=== PATIENT | male | born 1955 | race Caucasian/White ===

== ENCOUNTER 2016-12-03 18:52 | Emergency (ER) | payer OTHER ==
[~2016-12-03] VITALS: Ht 180.3 cm; Wt 137.6 kg
[~2016-12-03 18:52] MED LIST: CGN5X; CHOL100010 PO; CLON1TAB3 PO; CLOZ200T PO; CLZ100 PO; ECOTRIN TAB81 MG PO; LEVO25TA5 PO; LPT40 PO; METF-384 PO; MRLP17 PO; MULT-506 PO; NORCO PO; PARO1TAB27 PO; TOPI50TA16 PO
[2016-12-03 19:07] VITALS: Ht 180.3 cm; Wt 137.6 kg
--- NOTE | 2016-12-03 19:54 | EMERGENCY ROOM VISIT NOTE ---
History Report prepared by Debbi: Margarito Lim Under the Supervision of: Dr. Nery Walls M.D. First contact with patient: 19:17 Chief Complaint: ELBOW PAIN/INJURY Stated Complaint: SIGNS OF STROKE, L ELBOW WEAK History of Present Illness The patient is a 61 year old male who presents to the Emergency Room with complaints of constant left elbow pain and weakness occurring about an hour or so ago. The patient denies any speech difficulties, numbness in his arm, or acute weakness in his legs, though he states that he is having some weakness for a few months. The patient notes that he had an accident in 1988, and he hurt his left elbow, and he was unable to move his elbow for some time. The patient states that he uses chewing tobacco. Source of History: patient, family Onset: an hour or so ago Position: elbow (left) Quality: other (weakness) Timing: constant Associated Symptoms: No numbness Review of Systems See HPI for pertinent positives & negatives. A total of 10 systems reviewed and were otherwise negative. Past Medical & Surgical Medical Problems: (1) Hypertension Nos (2) MORBID OBESITY (3) PNEUMONIA, ORGANISM NOS (4) SCHIZOPHRENIA NOS-UNSPEC Family History Diabetes mellitus Heart disease Hypertension Social History Smoking Status: Never Smoker Alcohol Use: none Marital Status: single Housing Status: unknown Occupation Status: employed Current/Historical Medications Scheduled Atorvastatin (Atorvastatin Calcium), 40 MG PO DAILY Benztropine Mesylate (Benztropine Mesylate), 1 MG PO BID Cholecalciferol (Vitamin D3), 1 TAB PO DAILY Clonazepam (Klonopin), 1 MG PO BID Clozapine (Clozapine), 200 MG PO DAILY Clozapine (Clozapine), 2 TAB PO HS Docusate Sodium (Docusate Sodium), 2 CAP PO BID Levothyroxine Sodium (Levothyroxine Sodium), 25 MCG PO DAILY Metformin Hcl (Glucophage), 1,000 MG PO BID Multivitamin (Multivitamin), 1 TAB PO DAILY Paroxetine (Paroxetine HCl), 30 MG PO BID Polyethylene (Polyethylene Glycol 3350), 17 GM PO DAILY Tamsulosin Hcl (Flomax), 0.4 MG PO QAM Topiramate (Topamax), 50 MG PO BID Scheduled PRN Dextromethorphan-Guaifenesin (Tussin Dm), 5-10 ML PO Q4 PRN for Cough Hydrocodone/Acetaminophen 5MG/325MG ([place] 5MG/325MG), 1 TABLET PO Q4 PRN for Pain Ibuprofen (Advil), 200 MG PO Q4 PRN for Pain Pseudoephedrine-Guaifenesin (Mucinex D), 1 TAB PO BID PRN for CONGESTION Allergies Coded Allergies: Penicillins (Verified Allergy, 01/03/12) Physical Exam Vital Signs Date Time Temp Pulse Resp B/P (MAP) Pulse Ox O2 Delivery O2 Flow Rate FiO2 12/03/16 22:17 36.7 64 18 142/87 97 12/03/16 22:11 64 18 142/87 97 Room Air 12/03/16 22:01 142/87 12/03/16 21:52 64 14 12/03/16 21:32 64 18 133/77 97 Room Air 12/03/16 21:31 133/77 12/03/16 21:30 64 12/03/16 21:28 130/81 12/03/16 20:25 70 18 128/75 94 Room Air 12/03/16 19:07 36.7 82 18 116/72 94 Room Air Physical Exam Vital signs reviewed. General: Well-appearing male, in no significant distress. HEENT: Some horizontal nystagmus at baseline. Pupils are 3mm and reactive. No scleral icterus, PERRLA, neck supple. Atraumatic. Cardiovascular: Regular rate and rhythm, no extra sounds. Pulmonary: Clear to auscultation bilaterally, normal work of breathing. Abdomen: Soft, nontender, nondistended, positive bowel sounds. Musculoskeletal: Atraumatic, no peripheral edema. Left elbow appears to be atraumatic. Full range of motion. No pain with supination or pronation. Neurologic: No appreciable dysarthria. Finger to nose intact. Subtle 4/5 decrease in playground aide strength in the left upper extremity. No pronator drift. Patient awake alert and oriented x 3, Cranial nerves 2 through 12 grossly intact. Skin: Warm, dry, no rash Medical Decision & Procedures ER Provider Diagnostic Interpretation: Radiology results as stated below per my review and radiologist interpretation: HEAD WITHOUT CONTRAST (CT) CT DOSE: 537.48 mGy.cm HISTORY: Mental status change L arm pain, weakness TECHNIQUE: Multiaxial CT images of the head were performed without the use of intravenous contrast. A dose lowering technique was utilized adhering to the principles of ALARA. Comparison: 04/14/2014 Findings: The paranasal sinuses and mastoid air cells are clear. The calvarium and skull base are intact. The ventricles and sulci are within normal limits. There is no mass, hematoma, midline shift, or acute infarct. Impression: No acute intracranial abnormality. The above report was generated using voice recognition software. It may contain grammatical, syntax or spelling errors. Electronically signed by: Jostin Carreon M.D. 12/03/2016 8:42 PM Dictated Date/Time: 12/03/2016 8:41 PM LEFT ELBOW MIN 3 VIEWS ROUTINE CLINICAL HISTORY: L arm pain weakness, elbow pain COMPARISON: None. DISCUSSION: Deformity radial head possibly secondary to old posttraumatic change. Mild degenerative changes throughout. Mild reactive osteophytic change. No evidence of dislocation. There is no evidence for soft tissue swelling. IMPRESSION: 1. Deformity radial head felt to be secondary to old posttraumatic change, unless there is a history of acute posttraumatic findings. 2. Degenerative osteophytic change throughout. The above report was generated using voice recognition software. It may contain grammatical, syntax or spelling errors. Electronically signed by: Jostin Carreon M.D. 12/03/2016 9:35 PM Dictated Date/Time: 12/03/2016 9:34 PM CHEST 2 VIEWS ROUTINE CLINICAL HISTORY: L arm pain weakness pain COMPARISON STUDY: 04/05/2014 FINDINGS: Infiltrate left base. Poor visibility left hemidiaphragm. Lungs otherwise appear clear. IMPRESSION: Infiltrate left base The above report was generated using voice recognition software. It may contain grammatical, syntax or spelling errors. Electronically signed by: Jostin Carreon M.D. 12/03/2016 9:34 PM Dictated Date/Time: 12/03/2016 9:33 PM Laboratory Results 12/03/16 20:20 Red Blood Count 4.41, Mean Corpuscular Volume 88.7, Mean Corpuscular Hemoglobin 29.9, Mean Corpuscular Hemoglobin Concent 33.8, Mean Platelet Volume 10.3, Neutrophils (%) (Auto) 56.0, Lymphocytes (%) (Auto) 29.2, Monocytes (%) (Auto) 10.7, Eosinophils (%) (Auto) 3.3, Basophils (%) (Auto) 0.3, Neutrophils # (Auto ) 4.47, Lymphocytes # (Auto) 2.33, Monocytes # (Auto) 0.85, Eosinophils # (Auto ) 0.26, Basophils # (Auto) 0.02 12/03/16 20:20 Test 12/03/16 20:20 12/03/16 20:26 White Blood Count 7.97 K/uL (4.8-10.8) Red Blood Count 4.41 M/uL (4.7-6.1) Hemoglobin 13.2 g/dL (14.0-18.0) Hematocrit 39.1 % (42-52) Mean Corpuscular Volume 88.7 fL (80-100) Mean Corpuscular Hemoglobin 29.9 pg (25-34) Mean Corpuscular Hemoglobin Concent 33.8 g/dl (32-36) Platelet Count 154 K/uL (130-400) Mean Platelet Volume 10.3 fL (7.4-10.4) Neutrophils (%) (Auto) 56.0 % Lymphocytes (%) (Auto) 29.2 % Monocytes (%) (Auto) 10.7 % Eosinophils (%) (Auto) 3.3 % Basophils (%) (Auto) 0.3 % Neutrophils # (Auto) 4.47 K/uL (1.4-6.5) Lymphocytes # (Auto) 2.33 K/uL (1.2-3.4) Monocytes # (Auto) 0.85 K/uL (0.11-0.59) Eosinophils # (Auto) 0.26 K/uL (0-0.5) Basophils # (Auto) 0.02 K/uL (0-0.2) RDW Standard Deviation 45.8 fL (36.4-46.3) RDW Coefficient of Variation 14.1 % (11.5-14.5) Immature Granulocyte % (Auto) 0.5 % Immature Granulocyte # (Auto) 0.04 K/uL (0.00-0.02) Anion Gap 8.0 mmol/L (3-11) Est Creatinine Clear Calc Drug Dose 86.7 ml/min Estimated GFR () 69.2 Estimated GFR (Non- 59.7 BUN/Creatinine Ratio 11.2 (10-20) Calcium Level 8.8 mg/dl (8.5-10.1) Magnesium Level 2.1 mg/dl (1.8-2.4) Total Bilirubin 0.3 mg/dl (0.2-1) Direct Bilirubin 0.1 mg/dl (0-0.2) Aspartate Amino Transf (AST/SGOT) 20 U/L (15-37) Alanine Aminotransferase (ALT/SGPT) 24 U/L (12-78) Alkaline Phosphatase 104 U/L (45-117) Total Protein 6.7 gm/dl (6.4-8.2) Albumin 3.3 gm/dl (3.4-5.0) Bedside Troponin I < 0.030 ng/ml (0-0.045) Laboratory results per my review. Medications Administered Medications (Trade) Dose Ordered Sig/Vinny Route Start Time Stop Time Status Last Admin Dose Admin Sodium Chloride 1,000 ml @ 125 mls/hr Q8H STAT IV 12/03/16 20:03 12/04/16 04:02 12/03/16 20:24 125 MLS/HR Aspirin (Aspirin Chew) 324 mg NOW STAT PO 12/03/16 20:03 12/03/16 20:05 DC 12/03/16 20:21 324 MG ECG Indication: other (elbow pain) Rate (beats per minute): 72 Rhythm: normal sinus Findings: T-wave inversion (Anterolateral), other (T wave flattening in the inferior leads) Comparison ECG Date: 04/14/14 Change: no significant change ED Course 1926: Past medical records reviewed. The patient was evaluated in room B3. A complete history and physical examination was performed. 2003: Aspirin 324mg PO, Sodium Chloride 1000 ml @ 125 mls/hr IV 2149: Upon reevaluation, the patient appeared to have improvement of his symptoms. I discussed findings with him. He verbalized agreement of the treatment plan. He was discharged home. Medical Decision Differential diagnosis: Etiologies such as elbow fracture or sprain, metabolic, infection, hypo/ hyperglycemia, electrolyte abnormalities, cardiac sources, intracerebral event, toxicologic, neurologic, as well as others were entertained. This patient was evaluated and appeared to be in no significant distress. IV access was obtained and laboratory work was drawn. The patient was placed on the rubber heel and sole press tender and found to be in a normal sinus rhythm. Patient's physical examination is fairly unrevealing. There is no significant neurologic deficit. The patient has an old left elbow injury from the . X-ray reveals evidence of a distant radial head fracture. CT scan of the head reveals no evidence of acute intracranial pathology. I suspect the patient had an acute exacerbation of his chronic elbow discomfort. Chest x-ray is concerning for a basilar infiltrate however the patient has a normal white blood cell count, please distress of breath or cough. He is afebrile. I do not think antibiotics are warranted at this time. He and his caregiver were informed of the findings. They will follow-up with the PCP or return to the ER for worsening of symptoms, fever, cough, shortness of breath or any medical concerns. Medication Reconcilliation Current Medication List: was personally reviewed by me Blood Pressure Screening Patient's blood pressure: Elevated blood pressure Blood pressure disposition: Elevated BP felt to be situational Impression Primary Impression: Left elbow pain Additional Impression: Concern about stroke without diagnosis Scribe Attestation The scribe's documentation has been prepared under my direction and personally reviewed by me in its entirety. I confirm that the note above accurately reflects all work, treatment, procedures, and medical decision making performed by me. Departure Information Dispostion Home / Self-Care Referrals Deonte Martinez III, M.D. (PCP) Forms HOME CARE DOCUMENTATION FORM, IMPORTANT VISIT INFORMATION Patient Instructions [facility] Additional Instructions Diagnosis: Left elbow pain Please follow-up with her primary care physician if symptoms continue. Tylenol 650 mg every 6 hours as needed for pain. Return to the emergency department for shortness of breath, fever, cough, any medical concerns. Problem Qualifiers
[2016-12-03] MEDS ORDERED: ASPIRIN 81 MG CHEW PO STA (20:03)
[2016-12-03] MEDS ORDERED: SODIUM CHLORIDE 0.9% 1000ML 1,000 ML IV STA (20:03)
[2016-12-03 20:32] LABS: BASO % 0.3 %; BASO ABS # 0.02 K/uL (0-0.2); COMPLETE YES; EOS % 3.3 %; HEMATOCRIT 39.1 % (42-52); IG% 0.5 %; LYMPH % 29.2 %; LYMPH ABS # 2.33 K/uL (1.2-3.4); MEAN CELL VOLUME 88.7 fL (80-100); MEAN CORPUSCULAR HEMOGLOBIN 29.9 pg (25-34); MEAN CORPUSCULAR HGB CONC 33.8 g/dl (32-36); MEAN PLATELET VOLUME 10.3 fL (7.4-10.4); MONO % 10.7 %; PLATELET COUNT 154 K/uL (130-400); RED BLOOD COUNT 4.41 M/uL (4.7-6.1); WHITE BLOOD COUNT 7.97 K/uL (4.8-10.8)
[2016-12-03] MEDS ORDERED: CLOZ200T PO (20:40)
[2016-12-03] MEDS ORDERED: CGN1X PO (20:40)
[2016-12-03] MEDS ORDERED: PSEU60TA80 PO (20:40)
[2016-12-03] MEDS ORDERED: CHOL20007 PO (20:40)
[2016-12-03] MEDS ORDERED: DOCU100C31 PO (20:40)
[2016-12-03] MEDS ORDERED: CLOZ100T18 PO (20:40)
[2016-12-03] MEDS ORDERED: HYDR-5688 PO (20:40)
[2016-12-03] MEDS ORDERED: MRLP527 PO (20:40)
[2016-12-03] MEDS ORDERED: TAMS0.4C38 PO (20:40)
[2016-12-03] MEDS ORDERED: IBUP-1050 PO (20:40)
[2016-12-03] MEDS ORDERED: DEXT100S PO (20:40)
[2016-12-03] MEDS ORDERED: PARO30TA4 PO (20:40)
--- NOTE | 2016-12-03 20:43 | DIAGNOSTIC IMAGING REPORT ---
HEAD WITHOUT CONTRAST (CT) CT DOSE: 537.48 mGy.cm HISTORY: Mental status change L arm pain, weakness TECHNIQUE: Multiaxial CT images of the head were performed without the use of intravenous contrast. A dose lowering technique was utilized adhering to the principles of ALARA. Comparison: 04/14/2014 Findings: The paranasal sinuses and mastoid air cells are clear. The calvarium and skull base are intact. The ventricles and sulci are within normal limits. There is no mass, hematoma, midline shift, or acute infarct. Impression: No acute intracranial abnormality. The above report was generated using voice recognition software. It may contain grammatical, syntax or spelling errors. Electronically signed by: Jostin Carreon M.D. 12/03/2016 8:42 PM Dictated Date/Time: 12/03/2016 8:41 PM
[2016-12-03 20:47] LABS: BUN/CREATININE RATIO 11.2 (10-20); CALCIUM 8.8 mg/dl (8.5-10.1); CREATININE 1.3 mg/dl (0.60-1.40); MAGNESIUM 2.1 mg/dl (1.8-2.4); POTASSIUM 3.5 mmol/L (3.5-5.1)
--- NOTE | 2016-12-03 21:35 | DIAGNOSTIC IMAGING REPORT ---
CHEST 2 VIEWS ROUTINE CLINICAL HISTORY: L arm pain weakness pain COMPARISON STUDY: 04/05/2014 FINDINGS: Infiltrate left base. Poor visibility left hemidiaphragm. Lungs otherwise appear clear. IMPRESSION: Infiltrate left base The above report was generated using voice recognition software. It may contain grammatical, syntax or spelling errors. Electronically signed by: Jostin Carreon M.D. 12/03/2016 9:34 PM Dictated Date/Time: 12/03/2016 9:33 PM
--- NOTE | 2016-12-03 21:37 | DIAGNOSTIC IMAGING REPORT ---
LEFT ELBOW MIN 3 VIEWS ROUTINE CLINICAL HISTORY: L arm pain weakness, elbow pain COMPARISON: None. DISCUSSION: Deformity radial head possibly secondary to old posttraumatic change. Mild degenerative changes throughout. Mild reactive osteophytic change. No evidence of dislocation. There is no evidence for soft tissue swelling. IMPRESSION: 1. Deformity radial head felt to be secondary to old posttraumatic change, unless there is a history of acute posttraumatic findings. 2. Degenerative osteophytic change throughout. The above report was generated using voice recognition software. It may contain grammatical, syntax or spelling errors. Electronically signed by: Jostin Carreon M.D. 12/03/2016 9:35 PM Dictated Date/Time: 12/03/2016 9:34 PM
[2016-12-03 22:17] VITALS: BP 142/87; PULSE 64; TEMP 36.7; O2SAT 97
== END 2016-12-03 22:18 | disposition home or self-care (01) ==
LOC: C.EDB 18:53
DX: M25.522 Pain in left elbow (principal); I10 Essential (primary) hypertension; E66.9 Obesity, unspecified; F20.9 Schizophrenia, unspecified; Z83.3 Family history of diabetes mellitus; Z82.49 Family history of ischemic heart disease and other diseases of the circulatory system

== ENCOUNTER 2017-02-24 01:02 | Emergency (ER) | payer OTHER ==
[~2017-02-24] VITALS: Ht 182.9 cm; Wt 137.2 kg
[~2017-02-24 01:02] MED LIST changes: +BENZ-88 PO; -CGN5X; -CHOL100010 PO; +CHOL20007 PO; +CLOZ100T18 PO; -CLZ100 PO; +DEXT100S PO; +DOCU100C31 PO; -ECOTRIN TAB81 MG PO; +HYDR-5688 PO; +IBUP-1050 PO; -MRLP17 PO; +MRLP527 PO; -NORCO PO; -PARO1TAB27 PO; +PARO30TA4 PO; +PSEU60TA80 PO; +TAMS0.4C38 PO
[2017-02-24 01:07] VITALS: TEMP 36.4; Ht 182.9 cm; Wt 137.2 kg
[2017-02-24] MEDS ORDERED: OPTIRAY 320 IV PRN (01:30)
[2017-02-24 01:55] LABS: HEMATOCRIT 40.6 % (42-52); MEAN CELL VOLUME 90.2 fL (80-100); MEAN CORPUSCULAR HGB CONC 33.3 g/dl (32-36); MEAN PLATELET VOLUME 10.7 fL (7.4-10.4); PLATELET COUNT 168 K/uL (130-400); WHITE BLOOD COUNT 9.84 K/uL (4.8-10.8)
[2017-02-24 02:14] LABS: ALT/SGPT 26 U/L (12-78); AST/SGOT 14 U/L (15-37); BLOOD UREA NITROGEN 16 mg/dl (7-18); BUN/CREATININE RATIO 13.4 (10-20); CALCIUM 8.8 mg/dl (8.5-10.1); CARBON DIOXIDE 24 mmol/L (21-32); CHLORIDE 110 mmol/L (98-107); CREATININE 1.19 mg/dl (0.60-1.40); GLUCOSE 107 mg/dl (70-99); SODIUM 140 mmol/L (136-145)
[2017-02-24 02:17] LABS: ALKALINE PHOSPHATASE 119 U/L (45-117)
[2017-02-24 02:26] LABS: BASO % 0.5 %; BASO ABS # 0.05 K/uL (0-0.2); COMPLETE YES; ECHINOCYTES 1+; EOS % 8.3 %; IG% 0.6 %; LYMPH % 26.7 %; LYMPH ABS # 2.63 K/uL (1.2-3.4); MONO % 7.2 %; NEUT % 56.7 %
[2017-02-24 03:39] LABS: URINE APPEARANCE CLOUDY (CLEAR); URINE BILIRUBIN NEG (NEG); URINE COLOR ORANGE; URINE NITRITE NEG (NEG); URINE PH 5.5 (4.5-7.5); URINE SPECIFIC GRAVITY 1.027 (1.000-1.030); UROBILINOGEN NEG (NEG); ZZUR CULT IF INDIC CLEAN CATCH NO
[2017-02-24 03:45] LABS: MANUAL MICROSCOPIC REQUIRED? NO; REVIEW REQ? NO
[2017-02-24] MEDS ORDERED: MAGNESIUM CITRATE 296 ML/BTL PO ONE (04:00)
[2017-02-24 04:02] VITALS: BP 132/89
[2017-02-24 04:07] VITALS: PULSE 76; O2SAT 96
--- NOTE | 2017-02-24 04:12 | EMERGENCY ROOM VISIT NOTE ---
History First contact with patient: 01:10 Chief Complaint: ABDOMINAL PAIN Stated Complaint: ABD PAIN History of Present Illness The patient is a 61 year old male who presents to the Emergency Room with complaints of diffuse abdominal discomfort for the past few days not had a bowel movement in 2 days. No prior abdominal surgeries. He's had constipation before. Patient denies chest pain, dyspnea, fever, chills, nausea, vomiting, diarrhea, back pain, urinary symptoms. Pain currently 4-10 throughout the abdomen worse in the left lower quadrant. Nothing makes it better or worse. It does not radiate. No history diverticulitis. Review of Systems See HPI for pertinent positives & negatives. A total of 10 systems reviewed and were otherwise negative. Past Medical/Surgical History Medical Problems: (1) Hypertension Nos (2) MORBID OBESITY (3) PNEUMONIA, ORGANISM NOS (4) SCHIZOPHRENIA NOS-UNSPEC Diabetes, hyperlipidemia, BPH Family History Diabetes mellitus Heart disease Hypertension Social History Smoking Status: Never Smoker Alcohol Use: none Marital Status: single Housing Status: unknown Occupation Status: employed Current/Historical Medications Scheduled Atorvastatin (Atorvastatin Calcium), 40 MG PO DAILY Benztropine Mesylate (Benztropine Mesylate), 1 MG PO BID Clonazepam (Klonopin), 1 MG PO BID Clozapine (Clozapine), 200 MG PO DAILY Clozapine (Clozapine), 2 TAB PO HS Levothyroxine Sodium (Levothyroxine Sodium), 25 MCG PO DAILY Metformin Hcl (Glucophage), 1,000 MG PO BID Paroxetine (Paroxetine HCl), 30 MG PO BID Polyethylene (Polyethylene Glycol 3350), 17 GM PO DAILY Tamsulosin Hcl (Flomax), 0.4 MG PO QAM Topiramate (Topamax), 50 MG PO BID Allergies Coded Allergies: Penicillins (Verified Allergy, Unknown, 02/24/17) Physical Exam Vital Signs Date Time Temp Pulse Resp B/P (MAP) Pulse Ox O2 Delivery O2 Flow Rate FiO2 02/24/17 03:47 74 28 94 02/24/17 03:32 73 25 95 02/24/17 03:31 128/81 02/24/17 03:17 72 23 97 02/24/17 03:12 72 26 95 Room Air 02/24/17 03:01 132/81 02/24/17 02:57 72 29 97 02/24/17 02:44 151/85 02/24/17 02:12 75 21 96 02/24/17 02:07 76 24 96 02/24/17 02:01 139/68 02/24/17 01:52 73 25 96 02/24/17 01:37 75 27 96 02/24/17 01:31 141/83 02/24/17 01:27 138/84 02/24/17 01:22 76 29 96 02/24/17 01:17 77 28 97 Room Air 02/24/17 01:10 79 02/24/17 01:08 130/79 02/24/17 01:07 36.4 22 130/79 97 Room Air Physical Exam VITALS: Vitals are noted on the nurse's note and reviewed by myself. Vital signs stable. GENERAL: Pleasant male, in no acute distress, nondiaphoretic, well-developed well-nourished. SKIN: The skin was without rashes, erythema, edema, or bruising. There is no tenting of the skin. Capillary reflex less than 2 seconds. HEAD: Normocephalic atraumatic. EARS: External auditory canals clear, tympanic membranes pearly matthew without erythema or effusion bilaterally. EYES: Pupils equal round and reactive to light and accommodation. Conjunctivae without injection, sclerae without icterus. Extraocular movements intact. NOSE: Patent, turbinates without inflammation or discharge. MOUTH: Mucous membranes moist. Pharynx without erythema or exudate. Uvula midline. Airway patent. Tongue does not deviate. NECK: Supple without nuchal rigidity. No lymphadenopathy. No thyromegaly. Cervical spine is nontender. No JVD. HEART: Regular rate and rhythm without murmurs gallops or rubs. LUNGS: Clear to auscultation bilaterally without wheezes, rales or rhonchi. No dullness to percussion. No retractions or accessory muscle use. ABDOMEN: Positive bowel sounds x 4. Normal tympanic percussion. Soft, minimally tender to palpation left lower quadrant, no CVA tenderness, without masses or organomegaly. Lao sign negative. No guarding or rebound tenderness. MUSCULOSKELETAL: No muscle atrophy, erythema, or edema noted. NEURO: Patient was alert and oriented to person place and time. Normal sensation to light and sharp touch. No focal neurological deficits. Medical Decision & Procedures Laboratory Results 02/24/17 01:35 Red Blood Count 4.50, Mean Corpuscular Volume 90.2, Mean Corpuscular Hemoglobin 30.0, Mean Corpuscular Hemoglobin Concent 33.3, Mean Platelet Volume 10.7, Neutrophils (%) (Auto) 56.7, Lymphocytes (%) (Auto) 26.7, Monocytes (%) (Auto) 7.2, Eosinophils (%) (Auto) 8.3, Basophils (%) (Auto) 0.5, Neutrophils # (Auto) 5.57, Lymphocytes # (Auto) 2.63, Monocytes # (Auto) 0.71, Eosinophils # (Auto) 0.82, Basophils # (Auto) 0.05 02/24/17 01:35 Test 02/24/17 01:35 02/24/17 02:40 White Blood Count 9.84 K/uL (4.8-10.8) Red Blood Count 4.50 M/uL (4.7-6.1) Hemoglobin 13.5 g/dL (14.0-18.0) Hematocrit 40.6 % (42-52) Mean Corpuscular Volume 90.2 fL (80-100) Mean Corpuscular Hemoglobin 30.0 pg (25-34) Mean Corpuscular Hemoglobin Concent 33.3 g/dl (32-36) Platelet Count 168 K/uL (130-400) Mean Platelet Volume 10.7 fL (7.4-10.4) Neutrophils (%) (Auto) 56.7 % Lymphocytes (%) (Auto) 26.7 % Monocytes (%) (Auto) 7.2 % Eosinophils (%) (Auto) 8.3 % Basophils (%) (Auto) 0.5 % Neutrophils # (Auto) 5.57 K/uL (1.4-6.5) Lymphocytes # (Auto) 2.63 K/uL (1.2-3.4) Monocytes # (Auto) 0.71 K/uL (0.11-0.59) Eosinophils # (Auto) 0.82 K/uL (0-0.5) Basophils # (Auto) 0.05 K/uL (0-0.2) RDW Standard Deviation 45.6 fL (36.4-46.3) RDW Coefficient of Variation 13.9 % (11.5-14.5) Immature Granulocyte % (Auto) 0.6 % Immature Granulocyte # (Auto) 0.06 K/uL (0.00-0.02) Echinocytes 1+ Anion Gap 6.0 mmol/L (3-11) Est Creatinine Clear Calc Drug Dose 95.9 ml/min Estimated GFR () 77.0 Estimated GFR (Non- 66.5 BUN/Creatinine Ratio 13.4 (10-20) Calcium Level 8.8 mg/dl (8.5-10.1) Total Bilirubin 0.2 mg/dl (0.2-1) Direct Bilirubin < 0.1 mg/dl (0-0.2) Aspartate Amino Transf (AST/SGOT) 14 U/L (15-37) Alanine Aminotransferase (ALT/SGPT) 26 U/L (12-78) Alkaline Phosphatase 119 U/L (45-117) Total Protein 6.9 gm/dl (6.4-8.2) Albumin 3.2 gm/dl (3.4-5.0) Lipase 113 U/L (73-393) Urine Color ORANGE Urine Appearance CLOUDY (CLEAR) Urine pH 5.5 (4.5-7.5) Urine Specific [place] 1.027 (1.000-1.030) Urine Protein NEG (NEG) Urine Glucose (UA) NEG (NEG) Urine Ketones NEG (NEG) Urine Occult Blood 3+ (NEG) Urine Nitrite NEG (NEG) Urine Bilirubin NEG (NEG) Urine Urobilinogen NEG (NEG) Urine Leukocyte Esterase NEG (NEG) Urine WBC (Auto) 1-5 /hpf (0-5) Urine RBC (Auto) >30 /hpf (0-4) Urine Hyaline Casts (Auto) 1-5 /lpf (0-5) Urine Epithelial Cells (Auto) 5-10 /lpf (0-5) Urine Bacteria (Auto) NEG (NEG) ED Course Prior records/ancillary studies reviewed. Triage Nursing notes reviewed. The patient's history was concerning for abdominal pain. Differential diagnosis: Etiologies such as appendicitis, diverticulitis, PUD, biliary pathology, UTI, pancreatitis, obstruction, mesenteric ischemia, aortic pathology, infections, inflammatory bowel disease, renal colic, as well as others were entertained. Physical examination findings: As above. ER treatment provided: Magnesium citrate to go home On reassessment the patient felt better. Diagnostics interpreted by me: ECG: Normal sinus, normal intervals, poor baseline, no acute ST-T wave changes. Impression normal sinus rhythm interpreted by myself The labs revealed mild anemia. No leukocytosis. Hematuria without signs of infection on urinalysis Imaging studies: CT ABDOMEN & PELVIS With Contrast: Delayed right nephrogram with perinephric fat stranding and mild hydronephrosis. 5 mm stone within the proximal right ureter. Additional 5 mm stone within the right midpole kidney. No additional stones seen within the right ureter. Probable tiny superior right renal cyst. No stones visible within the left kidney or ureter. No hydronephrosis. Nonspecific mild perinephric stranding. Unremarkable urinary bladder. No bladder stones. Normal appendix visualized. Constipation without rectal fecal impaction. Large amount of stool visible within redundant sigmoid colon. Bowel obstruction or inflammation. Colonic diverticulosis without diverticulitis. Small fat-containing inguinal hernias. Multiple small splenules. Underdistended gallbladder. Possible very trace pleural effusions. Trace pericardial fluid. Possible lipoma along the interatrial septum. Radiologist: Silvia Moffett M.D. Exam and history seem consistent with right renal colic and constipation with other incidental findings and CT imaging. Patient did not have an acute abdomen on exam. He is well-appearing. He is Tolerating fluids. Patient had no right flank pain or right-sided abdominal pain. He was advised to take medicines as directed and to follow-up family care for referral to cardiology. He was advised to return to the ER immediately for severe pain, numbness, tingling, worsening signs or symptoms or as needed. By the evaluation outlined above emergent etiologies such as appendicitis, diverticulitis, PUD, biliary pathology, UTI, pancreatitis, obstruction, mesenteric ischemia, aortic pathology, infections, inflammatory bowel disease, as well as others were deemed relatively unlikely. The pt informed about the findings as listed above. All questions were answered and pleased with the treatment. Return instructions were outlined and the patient was discharged in stable condition. Outpatient prescription management: Magnesium citrate Referral: The patient was referred back to their primary care physician for follow-up in 2 to 3 days for a recheck of the current condition. Case reviewed with my attending Medical Decision As above Impression Primary Impression: Renal colic on right side Additional Impression: Constipation Departure Information Dispostion Home / Self-Care Condition GOOD Referrals No Doctor, Assigned (PCP) Patient Instructions My [facility] Additional Instructions Constipation: Magnesium citrate: Drink half the bottle when you get up, if you do not have a bowel movement within 6 hours then drink the rest of the bottle. You can mix this with pretty alfredo 50:50. Stay near the toilet all day. Increase your fluid and fiber intake. Rest and drink plenty of fluids as tolerated. Continue current medications. Avoid strenuous activities and anything that worsens your pain. Resume normal activities once your symptoms resolve. Return to the ER immediately for worsening or persistent abdominal pain, vomiting, fevers, chest pains, difficulty breathing, worsening of your condition , or as needed. Follow up with your primary physician in 2-3 days for a recheck of your current condition. Have your family doctor refer you to cardiology for further evaluation and workup for possible effusion around your heart. Kidney stone: Ibuprofen(Motrin, Advil) may be used for fever or pain. Use 600mg every six hours as needed. Take with food. Avoid using more than 2400mg in a 24 hour period. Do not use 2400mg per day for more than three consecutive days without physician direction. Prolonged inappropriate use can lead to stomach upset or ulcers. This medication can be taken if you need to drive, work, or perform activities which may be dangerous when taking narcotic pain medication. (AND/OR) Acetaminophen(Tylenol) may be used for fever or pain. Use 1000mg every six hours as needed. Avoid using more than 3000mg in a 24 hour period. This medication can be taken if you need to drive, work, or perform activities which may be dangerous when taking narcotic pain medication. Strain your urine and collect all the stones or debris for the urologists. Rest and avoid strenuous activity until your stone passes and symptoms resolve. Drink plenty of fluids. Continue current medications. Return to the ER for worsening abdominal or back pain, vomiting, fevers, passing out, or as needed. Follow up with urology in 2-3 days, call for an appointment. Problem Qualifiers
--- NOTE | 2017-02-24 07:12 | DIAGNOSTIC IMAGING REPORT ---
ABD/PELVIS IV CONTRAST ONLY CLINICAL HISTORY: 61 years-old Male presenting with llq pain. TECHNIQUE: Multidetector CT of the abdomen and pelvis was performed after the administration of intravenous contrast. IV contrast: 113 mL of Optiray 320. A dose lowering technique was used consistent with the principles of ALARA (as low as reasonably achievable). COMPARISON: None. CT DOSE (mGy.cm): The estimated cumulative dose is 1535.77 mGy.cm. FINDINGS: Can Dryer topogram: Unremarkable. Lung bases: Minimal dependent changes likely atelectasis. Lipomatous hypertrophy of the interatrial septum may be present though partially visualized. Normal heart size. No pericardial or pleural effusion. Liver: Normal morphology. No liver lesion. Patent hepatic vasculature. Biliary: No intrahepatic or extrahepatic biliary ductal dilatation. Normal gallbladder. Pancreas: Moderate parenchymal atrophy. Spleen: Normal. Splenules noted. Adrenal glands: Normal. Kidneys and ureters: Mild bilateral perinephric fat infiltration. Mild right pelvocaliectasis with subtle urothelial thickening. An obstructing 4 to 5 mm calculus noted in the proximal right ureter at the level of L3-4. A nonobstructing calculus also noted in the interpolar region of the right kidney measuring 4 to 5 mm. No left renal calculi or left hydronephrosis. Hypodensity in the upper pole the right kidney may represent a cyst, incompletely characterized. Left ureter normal. Bladder: Mild circumferential bladder wall thickening. Pelvic organs: Prostate and seminal vesicles normal. Bowel: Moderate stool burden in the mildly distended colon. This primarily affects the left colon through the rectum. No bowel obstruction. The appendix is normal. Peritoneal cavity: No free fluid or intraperitoneal gas. Lymph nodes: No enlarged lymph nodes in the abdomen or pelvis. Vasculature: Atherosclerosis of the normal caliber abdominal aorta. IVC patent. Abdominal wall: Fat-containing left inguinal hernia. Musculoskeletal: Degenerative changes of the spine. Mild osteopenia suggested. IMPRESSION: 1. Findings consistent with mild right hydronephrosis with an obstructing 4 to 5 mm calculus in the proximal right ureter at the level of L3-4. Additional nonobstructing calculus in the right kidney. 2. Mild circumferential bladder wall thickening could suggest chronic outlet obstruction or cystitis. Correlate with urinalysis. 3. Moderate stool burden primarily in the left colon. Electronically signed by: Les Linares M.D. 02/24/2017 7:11 AM Dictated Date/Time: 02/24/2017 6:44 AM
== END 2017-02-24 04:21 | disposition home or self-care (01) ==
LOC: EDBD 01:02 → C.EDA 01:03
DX: N23 Unspecified renal colic (principal); K59.00 Constipation, unspecified; I10 Essential (primary) hypertension; E11.9 Type 2 diabetes mellitus without complications; E78.5 Hyperlipidemia, unspecified; N40.0 Benign prostatic hyperplasia without lower urinary tract symptoms; Z83.3 Family history of diabetes mellitus; Z82.49 Family history of ischemic heart disease and other diseases of the circulatory system

== ENCOUNTER 2024-02-10 03:47 | Inpatient (IN) ==
--- NOTE | 2024-02-10 04:07 | Emergency Department Note ---
Impression & Plan Psychosis ED Provider Note HISTORY OF PRESENT ILLNESS: Patient is a 68-year-old male presenting with acute psychosis. Patient reports that he is hearing the Holy Ghost speak to him and he thinks that Armen is speaking to him. He states that he is "send against Armen" but is unsure what he is done. He reports that he stopped taking his psychiatric medications "a long time ago" but then states his only been "a few days." Patient reports that he stopped taking his medications because "they do not work anyway." He denies any suicidal or homicidal ideation. He thinks he is hearing voices but is unsure. He states that he "speak with Armen." ROS: as above PHYSICAL EXAM: Constitutional: Patient appears in no acute distress. HENT: Head: Normocephalic and atraumatic. Eyes: EOMI, PERRL Mouth/Throat: Mucous membranes moist. Neck: Trachea midline. Neck supple. Musculoskeletal: No edema, tenderness or deformity noted. Skin: Warm and dry. No rash, erythema, pallor or cyanosis Psychiatric: Patient has tangential thinking and is difficult to redirect. Patient makes a chewing motion with his tongue. Neurological: Alert and keenly responsive. CN II-XII grossly intact, moving all extremities equally and fully. MDM: - Vitals signs stable - History obtained via patient. History as above. - Chronic conditions affecting care: HTN; HLD; DM-2; schizophrenia - Differential diagnoses include, but are not limited to: medication reaction; medication withdrawal; alcohol withdrawal; acute psychosis; UTI; drug intoxication - Order placed for continuous cardiac monitoring. At this time, monitor showed rate of 60 bpm with normal sinus rhythm, per my interpretation. - External medical records reviewed. - EKG interpreted by myself showed normal sinus rhythm. Rate 74 bpm. QT 414. No acute ischemic changes. Noted to have occasional PVCs. - Laboratory workup interpreted by myself showed normal WBC; slight hypokalemia (K 3.3); normal TSH; negative salicylate/acetaminophen/alcohol levels - CXR negative for pneumonia, per my interpretation. Radiology notes concern for deep sulcus sign on right concerning for possible pneumothorax. Recommended CT imaging of chest. On review of patient's chart, he had a chest x-ray in April 2020 which also showed a deep sulcus sign on the right. - Patient is tachypneic and seems to be very anxious on reexamination. Breath sounds equal bilaterally, despite the chest x-ray findings. Patient is requesting to be alone. He is willing to take some medication to help with his anxiety symptoms. 5 mg of Zyprexa was ordered. - CT head wo contrast negative for acute pathology - On reassessment at 06:30 AM, patient resting comfortably in bed. Saturations 98% on RA, HR 61 bpm. - CT chest wo contrast negative for pleural effusion or pneumothorax. - COVID negative - UA negative for infection - UDS negative - Case management attempted to call [facility] where patient resides, with no success in getting an answer. - Patient will need reassessment by behavioral health case management and discussion with his facility for safety plan. - Prior to disposition, care of patient was checked out to Dr. Orr following a discussion of the patient's course. ASSESSMENT AND PLAN: Diagnosis: psychosis Past Med/Surg History Problem List (Updated 02/10/24 @ 06:32 by Elizabet Villarreal MD) Psychosis (Acute) Ambulatory dysfunction (Acute) Medical History Hyperlipidemia Hypertension Morbid obesity Schizophrenia Seizures Type 2 diabetes mellitus Family History Other Family history non-contributory Social History Smoking Status: Never smoker Tobacco Type: Smokeless Tobacco (Dip or Chew) Preferred Language: Frisian current occupational status: employed Feels Safe at Home: Yes Allergies Allergies Allergy/AdvReac Type Severity Reaction Status Date / Time Penicillins Allergy Intermediate nausea/vomi Verified 12/21/20 22:47 ting Home Meds Home Medications Medication Instructions Recorded Confirmed atorvastatin 40 mg tablet 40 mg PO HS 04/19/18 02/10/24 benztropine 1 mg tablet 1 mg PO BID panic attacks 04/19/18 02/10/24 cholecalciferol (vitamin D3) 50 2,000 unit PO QAM 04/19/18 02/10/24 mcg (2,000 unit) capsule (Vitamin D3) clonazepam 1 mg tablet 1 mg PO BIDM 04/19/18 02/10/24 clozapine 200 mg tablet 200 mg PO DAILY@0900 04/19/18 02/10/24 levothyroxine 25 mcg tablet 25 mcg PO QAM 04/19/18 02/10/24 metformin 1,000 mg tablet 1,000 mg PO BID17 04/19/18 02/10/24 paroxetine HCl 30 mg tablet 30 mg PO BID 04/19/18 02/10/24 polyethylene glycol 3350 17 gram 17 g PO BID PRN Constipation 04/19/18 02/10/24 oral powder packet (Miralax) tamsulosin 0.4 mg capsule 0.4 mg PO QAM 04/19/18 02/10/24 topiramate 50 mg capsule 50 mg PO BID 04/19/18 02/10/24 sprinkle,extended release 24 hr multivitamin (Daily-Izaiah tablet) 1 tab PO DAILY 06/13/19 02/10/24 acetaminophen 325 mg tablet 650 mg PO Q4 PRN Pain, Moderate 12/07/20 02/10/24 lisinopril 20 mg tablet 20 mg PO DAILY 12/07/20 02/10/24 umeclidinium 62.5 mcg-vilanterol 1 ea inhalation DAILY 12/07/20 02/10/24 25 mcg/actuation powdr for inhalation (Anoro Ellipta) albuterol sulfate 90 mcg/actuation 2 puffs inhalation Q6H PRN Wheezing 02/10/24 02/10/24 aerosol inhaler meloxicam 15 mg tablet 15 mg PO DAILY pain 02/10/24 02/10/24 Results & Data (ED) Vital Signs Vital Signs - 24 hr 02/10/24 04:04 02/10/24 04:55 02/10/24 05:33 Temperature 36.8 C Temperature Source Oral Pulse Rate 75 70 Pulse Rate [Apical] 64 Pulse Rhythm Regular Pulse Strength Normal Respiratory Rate 19 26 H Respiratory Effort / Characteristics Non-Labored Labored Respiratory Depth Normal Deep Respiratory Pattern Regular Tachypnea Blood Pressure 115/83 Blood Pressure Mean 93 Blood Pressure Position Sitting Pulse Oximetry 98 99 Oxygen Delivery Method Room Air Room Air Sepsis Recent Fever Within 48 Hours No Sepsis New/Unexplained Change in Mental Status No Sepsis Action Taken by Nursing No Action Required Laboratory Data 02/10/24 04:09 02/10/24 04:09 Lab Results 02/10/24 02/10/24 02/10/24 Range/Units 04:04 04:09 04:40 WBC 10.69 (4.8-10.8) K/ul RBC 4.97 (4.70-6.10) M/uL Hgb 15.2 (14.0-18.0) g/dl Hct 44.5 (42.0-52.0) % MCV 89.5 (80.0-100.0) fL MCH 30.6 (25.0-34.0) pg MCHC 34.2 (32.0-36.0) g/dL RDW Std Deviation 42.3 (36.4-46.3) fL RDW Coeff of Kay 12.9 (11.5-14.5) % Plt Count 204 (130-400) K/uL MPV 11.6 (9.4-12.4) fL Immature Gran % (Auto) 0.3 % Neut % (Auto) 70.5 % Lymph % (Auto) 18.6 % Baker % (Auto) 8.6 % Eos % (Auto) 1.6 % Baso % (Auto) 0.4 % Neut # (Auto) 7.54 H (1.40-6.50) K/uL Lymph # (Auto) 1.99 (1.20-3.40) K/uL Baker # (Auto) 0.92 H (0.11-0.59) K/uL Eos # (Auto) 0.17 (0.00-0.50) K/uL Baso # (Auto) 0.04 (0.00-0.20) K/uL Immature Gran # (Auto) 0.03 (0.01-0.20) K/uL Sodium 141 (136-145) mmol/L Potassium 3.3 L (3.5-5.1) mmol/L Chloride 112 H (98-107) mmol/L Carbon Dioxide 20 L (21-32) mmol/L Anion Gap 9 (3-11) BUN 15 (6-23) mg/dl Creatinine 1.11 (0.6-1.4) mg/dl Est Cr Clr Drug Dosing 83.9 ml/min eGFR 73.24 BUN/Creatinine Ratio 13.5 (10-20) Glucose 91 (70-99(Fasting)) mg/dl POC Glucose 100 H (70-99) mg/dl Calcium 9.5 (8.6-10.3) mg/dl Total Bilirubin 0.8 (0.2-1.0) mg/dl AST 34 (13-39) U/L ALT 25 (7-52) U/L Alkaline Phosphatase 100 (34-104) U/L Total Protein 7.6 (6.0-8.3) gm/dl Albumin 4.3 (3.4-5.0) gm/dl Globulin 3.3 (2.5-4.0) gm/dl Albumin/Globulin Ratio 1.3 (0.9-2) TSH 2.237 (0.300-4.500) uIu/ml Urine Color Urine Appearance (Clear) Urine pH (4.5-7.5) Ur Specific [place] (1.000-1.030) Urine Protein (Negative) Urine Glucose (UA) (Negative) Urine Ketones (Negative) Urine Blood (Negative) Urine Nitrite (Negative) Urine Bilirubin (Negative) Urine Urobilinogen (Negative) Ur Leukocyte Esterase (Negative) Urine WBC (Auto) (0-5) /hpf Urine RBC (Auto) (0-2) /hpf U Hyaline Cast (Auto) (0-2) /lpf U Epithel Cells (Auto) (0-2) /hpf Urine Bacteria (Auto) (None Seen) Salicylates < 3.0 L (3.0-30) mg/dl Urine Opiates Screen (Neg) Ur Methadone, Qual (Neg) Urine Fentanyl Screen (Neg) Acetaminophen < 3 L (10-30) ug/ml Urine Barbiturates (Neg) Ur Phencyclidine (PCP) (Neg) U Amphetamin/Meth Scrn (Neg) MDMA (Ecstasy) Screen (Neg) U Benzodiazepines Scrn (Neg) Ur Cocaine Metabolite (Neg) U Marijuana (THC) Screen (Neg) Ethyl Alcohol mg/dL < 10.0 (<10.0) mg/dl SARS-CoV-2, RNA, NAAT NEGATIVE (NEGATIVE) 02/10/24 Range/Units Unknown WBC (4.8-10.8) K/ul RBC (4.70-6.10) M/uL Hgb (14.0-18.0) g/dl Hct (42.0-52.0) % MCV (80.0-100.0) fL MCH (25.0-34.0) pg MCHC (32.0-36.0) g/dL RDW Std Deviation (36.4-46.3) fL RDW Coeff of Kay (11.5-14.5) % Plt Count (130-400) K/uL MPV (9.4-12.4) fL Immature Gran % (Auto) % Neut % (Auto) % Lymph % (Auto) % Baker % (Auto) % Eos % (Auto) % Baso % (Auto) % Neut # (Auto) (1.40-6.50) K/uL Lymph # (Auto) (1.20-3.40) K/uL Baker # (Auto) (0.11-0.59) K/uL Eos # (Auto) (0.00-0.50) K/uL Baso # (Auto) (0.00-0.20) K/uL Immature Gran # (Auto) (0.01-0.20) K/uL Sodium (136-145) mmol/L Potassium (3.5-5.1) mmol/L Chloride (98-107) mmol/L Carbon Dioxide (21-32) mmol/L Anion Gap (3-11) BUN (6-23) mg/dl Creatinine (0.6-1.4) mg/dl Est Cr Clr Drug Dosing ml/min eGFR BUN/Creatinine Ratio (10-20) Glucose (70-99(Fasting)) mg/dl POC Glucose (70-99) mg/dl Calcium (8.6-10.3) mg/dl Total Bilirubin (0.2-1.0) mg/dl AST (13-39) U/L ALT (7-52) U/L Alkaline Phosphatase (34-104) U/L Total Protein (6.0-8.3) gm/dl Albumin (3.4-5.0) gm/dl Globulin (2.5-4.0) gm/dl Albumin/Globulin Ratio (0.9-2) TSH (0.300-4.500) uIu/ml Urine Color Yellow Urine Appearance Clear (Clear) Urine pH 6.0 (4.5-7.5) Ur Specific [place] 1.016 (1.000-1.030) Urine Protein Trace H (Negative) Urine Glucose (UA) Negative (Negative) Urine Ketones Trace H (Negative) Urine Blood Negative (Negative) Urine Nitrite Negative (Negative) Urine Bilirubin Negative (Negative) Urine Urobilinogen Negative (Negative) Ur Leukocyte Esterase Negative (Negative) Urine WBC (Auto) 0-5 (0-5) /hpf Urine RBC (Auto) 0-2 (0-2) /hpf U Hyaline Cast (Auto) 0-2 (0-2) /lpf U Epithel Cells (Auto) 0-2 (0-2) /hpf Urine Bacteria (Auto) None Seen (None Seen) Salicylates (3.0-30) mg/dl Urine Opiates Screen Neg (Neg) Ur Methadone, Qual Neg (Neg) Urine Fentanyl Screen Neg (Neg) Acetaminophen (10-30) ug/ml Urine Barbiturates Neg (Neg) Ur Phencyclidine (PCP) Neg (Neg) U Amphetamin/Meth Scrn Neg (Neg) MDMA (Ecstasy) Screen Neg (Neg) U Benzodiazepines Scrn Neg (Neg) Ur Cocaine Metabolite Neg (Neg) U Marijuana (THC) Screen Neg (Neg) Ethyl Alcohol mg/dL (<10.0) mg/dl SARS-CoV-2, RNA, NAAT (NEGATIVE) Administered Medications Discontinued Medications Olanzapine (Olanzapine Zydis 5 Mg Orally Dis. Tab) 5 mg PO ONCE ONE Stop: 02/10/24 05:18 Last Admin: 02/10/24 05:26 Dose: 5 mg Documented By: [facility] Imaging Data Radiologist's Impression: Head CT 02/10/24 03:50 EXAM: CT head/brain wo con CLINICAL HISTORY: psychosis TECHNIQUE: Multiple axial images are obtained from the skull base to the vertex without contrast. CT scan was performed according to ALARA (as low as reasonably achievable). COMPARISON: 19 April 2018. FINDINGS: There is cerebral atrophy. The matthew-white matter differentiation is preserved. There are scattered periventricular hypodensities as can be seen with chronic microvascular ischemic changes. No evidence of space occupying lesion, hemorrhage, edema, mass effect, midline shift, extra axial collection, or hydrocephalus is noted. Basal cisterns are symmetric and normal in size and configuration. Visualized paranasal sinuses and mastoid air cells are well aerated. Orbital contents are within normal limits. Bony structures are intact. IMPRESSION: 1. No evidence of acute intracranial abnormality is demonstrated. 2. Chronic microvascular ischemic changes. 3. Cerebral atrophy. No significant interval new finding is noted as compared to the previous CT scan. Electronically signed by Jaydon Casey 02-10-2024 05:01 AM Chest X-Ray 02/10/24 04:00 EXAM: XR chest 1V portable CLINICAL HISTORY: PSYCHOSIS PT WAS VERY SHORT OF BREATH [facility] TECHNIQUE: X-ray examination of the chest 1 view semierect AP portable projection. COMPARISON: 01/19/2022. FINDINGS: Questionable deep sulcus sign seen in the left lower lateral thorax suggesting pneumothorax. No gross air-space opacities in both lungs are clear. Clear both costophrenic angles. Cardiac size is not enlarged. Intact bony thorax is seen. IMPRESSION: 1. Questionable deep sulcus sign seen in the left lower lateral thorax suggesting pneumothorax. 2. CT chest may be advised if clinically indicated. Electronically signed by Andrew Fernandes 02-10-2024 05:[address] 02/10/24 05:35 EXAM: CT chest diagnostic wo con CLINICAL HISTORY: xr concerning for pneumo? TECHNIQUE: Contiguous axial CT images of the chest were acquired without the administration of intravenous contrast. Coronal and sagittal reconstructions were also obtained. One of the following dose reduction techniques were utilized for this exam: Automated exposure control, adjustment of the mA and/or kV according to patient size, use of iterative reconstruction. COMPARISON: X-ray dated 02/10/[address] dated 06/13/2019. FINDINGS: Lungs: Subpleural atelectasis in both lung bases. No evidence of consolidation or collapse. Mild right posterior pleural reaction. No pleural effusion or pneumothorax. Mediastinum: The esophagus is distended with gases The mediastinum is normal in size and contour. No mediastinal mass or abnormal lymphadenopathy. The heart size is increased. Possible streak of pericardial effusion. Hilar Structures: The hilar structures appear normal without enlargement or abnormality. Trachea and Main Bronchi: The lower trachea wall is mildly collapsed and patent without evidence of obstruction. Chest Wall: The chest wall is unremarkable with no evidence of soft tissue or bony abnormalities. Upper Abdomen: Visualized portions of the liver, spleen, adrenal glands, and kidneys are unremarkable. Bones: Multilevel prominent anterior osteophytes on the thoracic spine. No evidence of fracture or lytic/sclerotic lesions. IMPRESSION: 1. No pleural effusion or pneumothorax on current CT. 2. The rest of the findings are stable in comparison with CT on 06/13/2019 with redemonstration of subpleural atelectasis in both lung bases, cardiomegaly, and esophagus distended with gases. 3. Multilevel prominent anterior osteophytes on the thoracic spine. Electronically signed by Andrew Fernandes 02-10-2024 06:47 AM Discharge Plan Visit Data Chief Complaint: Mental Health Evaluation Stated Complaint: FEELS LIKE HE IS DAMNED, QUIT TAKING MEDS ED Provider: Elizabet Villarreal Discharge Problem: Psychosis Forms Stand Alone Forms: My [facility], Suicide Prevention Resources Prescriptions Prescriptions: No Action atorvastatin 40 mg tablet 40 mg PO HS polyethylene glycol 3350 [Miralax] 17 gram Powder In Packet 17 g PO BID PRN (Reason: Constipation) clonazepam 1 mg tablet 1 mg PO BIDM Rx Instructions: take at noon and 5pm levothyroxine 25 mcg tablet 25 mcg PO QAM tamsulosin 0.4 mg capsule 0.4 mg PO QAM paroxetine HCl 30 mg tablet 30 mg PO BID metformin 1,000 mg tablet 1,000 mg PO BID17 benztropine 1 mg tablet 1 mg PO BID clozapine 200 mg tablet 200 mg PO DAILY@0900 cholecalciferol (vitamin D3) [Vitamin D3] 2,000 unit Capsule 2,000 unit PO QAM topiramate 50 mg capsule,sprinkle,ER 24hr 50 mg PO BID multivitamin [Daily-Izaiah] Tablet 1 tab PO DAILY lisinopril 20 mg tablet 20 mg PO DAILY acetaminophen 325 mg Tablet 650 mg PO Q4 MDD 3g PRN (Reason: Pain, Moderate) Anoro Ellipta 62.5-25 mcg/actuation blister with device 1 ea INHALATION DAILY meloxicam 15 mg tablet 15 mg PO DAILY albuterol sulfate 90 mcg/actuation HFA aerosol inhaler 2 puffs INH Q6H PRN (Reason: Wheezing) Referrals Referrals: [facility] [Primary Care Provider] -
[2024-02-10 04:27] LABS: Basophils # (auto) 0.04 K/uL (0.00-0.20); Basophils % (auto) 0.4 %; Eosinophils # (auto) 0.17 K/uL (0.00-0.50); Eosinophils % (auto) 1.6 %; Hematocrit (blood only) 44.5 % (42.0-52.0); Hemoglobin 15.2 g/dl (14.0-18.0); Immature Granulocytes # (auto) 0.03 K/uL (0.01-0.20); Immature Granulocytes % (auto) 0.3 %; Lymphocytes # (auto) 1.99 K/uL (1.20-3.40); Lymphocytes % (auto) 18.6 %; Mean Corpuscular Hemoglobin 30.6 pg (25.0-34.0); Mean Corpuscular Hgb Conc 34.2 g/dL (32.0-36.0); Mean Corpuscular Volume 89.5 fL (80.0-100.0); Mean Platelet Volume 11.6 fL (9.4-12.4); Monocytes # (auto) 0.92 K/uL (0.11-0.59); Monocytes % (auto) 8.6 %; Neutrophils # (auto) 7.54 K/uL (1.40-6.50); Neutrophils % (auto) 70.5 %; Platelet Count 204 K/uL (130-400); RDW Coefficient of Variation 12.9 % (11.5-14.5); RDW Standard Deviation 42.3 fL (36.4-46.3); Red Blood Count 4.97 M/uL (4.70-6.10); White Blood Count 10.69 K/ul (4.8-10.8)
[2024-02-10 04:41] LABS: Acetaminophen < 3 ug/ml (10-30); Albumin Globulin Ratio 1.3 (0.9-2); Albumin Level 4.3 gm/dl (3.4-5.0); BUN Creatinine Ratio 13.5 (10-20); Bilirubin,Total 0.8 mg/dl (0.2-1.0); Calcium 9.5 mg/dl (8.6-10.3); Creatinine Clr Calc Pharmacy 83.9 ml/min; Globulin 3.3 gm/dl (2.5-4.0); Potassium 3.3 mmol/L (3.5-5.1); Salicylate < 3.0 mg/dl (3.0-30); Total Protein 7.6 gm/dl (6.0-8.3)
[2024-02-10 04:55] LABS: Thyroid Stimulating Hormone 2.237 uIu/ml (0.300-4.500)
--- NOTE | 2024-02-10 05:02 | CT Scan Report ---
EXAM: CT head/brain wo con CLINICAL HISTORY: psychosis TECHNIQUE: Multiple axial images are obtained from the skull base to the vertex without contrast. CT scan was performed according to ALARA (as low as reasonably achievable). COMPARISON: 19 April 2018. FINDINGS: There is cerebral atrophy. The matthew-white matter differentiation is preserved. There are scattered periventricular hypodensities as can be seen with chronic microvascular ischemic changes. No evidence of space occupying lesion, hemorrhage, edema, mass effect, midline shift, extra axial collection, or hydrocephalus is noted. Basal cisterns are symmetric and normal in size and configuration. Visualized paranasal sinuses and mastoid air cells are well aerated. Orbital contents are within normal limits. Bony structures are intact. IMPRESSION: 1. No evidence of acute intracranial abnormality is demonstrated. 2. Chronic microvascular ischemic changes. 3. Cerebral atrophy. No significant interval new finding is noted as compared to the previous CT scan. Electronically signed by Jaydon Casey 02-10-2024 05:01 AM
[2024-02-10] MEDS: OLANZapine ZYDIS 5 MG ORALLY DIS. TAB PO ONE (05:26)
--- NOTE | 2024-02-10 05:35 | XRay Report ---
EXAM: XR chest 1V portable CLINICAL HISTORY: PSYCHOSIS PT WAS VERY SHORT OF BREATH [facility] TECHNIQUE: X-ray examination of the chest 1 view semierect AP portable projection. COMPARISON: 01/19/2022. FINDINGS: Questionable deep sulcus sign seen in the left lower lateral thorax suggesting pneumothorax. No gross air-space opacities in both lungs are clear. Clear both costophrenic angles. Cardiac size is not enlarged. Intact bony thorax is seen. IMPRESSION: 1. Questionable deep sulcus sign seen in the left lower lateral thorax suggesting pneumothorax. 2. CT chest may be advised if clinically indicated. Electronically signed by Andrew Fernandes 02-10-2024 05:34 AM
[2024-02-10 05:53] LABS: Appearance Urine Clear (Clear); Bacteria Urine Automated None Seen (None Seen); Bilirubin Urine Negative (Negative); Blood Urine Negative (Negative); Cast Urine Automated 0-2 /lpf (0-2); Color Urine Yellow; Epithelial Cell Urine Auto 0-2 /hpf (0-2); Glucose Urine UA Negative (Negative); Ketones Urine Trace (Negative); Leukocyte Esterase Urine Negative (Negative); Nitrite Urine Negative (Negative); Protein Urine Trace (Negative); RBC Urine Automated 0-2 /hpf (0-2); Specific Gravity Urine 1.016 (1.000-1.030); Urobilinogen Urine Negative (Negative); WBC Urine Automated 0-5 /hpf (0-5)
[2024-02-10 06:09] LABS: Amphetamines+Metham, Urine Neg (Neg); Barbiturates, Urine Neg (Neg); Benzodiazepine, Urine Neg (Neg); Cocaine, Urine Neg (Neg); Fentanyl, Urine Neg (Neg); MDMA (Ecstacy), Urine Neg (Neg); Marijuana, Urine Neg (Neg); Methadone, Urine Neg (Neg); Opiate, Urine Neg (Neg); Phencyclidine, Urine Neg (Neg)
--- NOTE | 2024-02-10 06:47 | CT Scan Report ---
EXAM: CT chest diagnostic wo con CLINICAL HISTORY: xr concerning for pneumo? TECHNIQUE: Contiguous axial CT images of the chest were acquired without the administration of intravenous contrast. Coronal and sagittal reconstructions were also obtained. One of the following dose reduction techniques were utilized for this exam: Automated exposure control, adjustment of the mA and/or kV according to patient size, use of iterative reconstruction. COMPARISON: X-ray dated 02/10/[address] dated 06/13/2019. FINDINGS: Lungs: Subpleural atelectasis in both lung bases. No evidence of consolidation or collapse. Mild right posterior pleural reaction. No pleural effusion or pneumothorax. Mediastinum: The esophagus is distended with gases The mediastinum is normal in size and contour. No mediastinal mass or abnormal lymphadenopathy. The heart size is increased. Possible streak of pericardial effusion. Hilar Structures: The hilar structures appear normal without enlargement or abnormality. Trachea and Main Bronchi: The lower trachea wall is mildly collapsed and patent without evidence of obstruction. Chest Wall: The chest wall is unremarkable with no evidence of soft tissue or bony abnormalities. Upper Abdomen: Visualized portions of the liver, spleen, adrenal glands, and kidneys are unremarkable. Bones: Multilevel prominent anterior osteophytes on the thoracic spine. No evidence of fracture or lytic/sclerotic lesions. IMPRESSION: 1. No pleural effusion or pneumothorax on current CT. 2. The rest of the findings are stable in comparison with CT on 06/13/2019 with redemonstration of subpleural atelectasis in both lung bases, cardiomegaly, and esophagus distended with gases. 3. Multilevel prominent anterior osteophytes on the thoracic spine. Electronically signed by Andrew Fernandes 02-10-2024 06:47 AM
[2024-02-10] MEDS: NON-FORMULARY MEDICATION (Paroxetine Hcl 30 mg tablet) PO SCH (11:02)
[2024-02-10] MEDS: TAMSULOSIN HCL 0.4 MG CAP PO SCH (11:08)
[2024-02-10] MEDS: metFORMIN HCL 500 MG TAB PO SCH ×2 (11:08→17:23)
[2024-02-10] MEDS: LEVOTHYROXINE SODIUM 25 MCG TABLET PO SCH (11:08)
[2024-02-10] MEDS: lisinopril 20 MG TAB PO SCH (11:08)
[2024-02-10] MEDS: PARoxetine HCL 20 MG TAB PO SCH (12:22)
[2024-02-10] MEDS: CHOLECALCIFEROL 25 MCG (1000 UNITS) TAB PO SCH (12:22)
[2024-02-10] MEDS: cloZAPine 100 MG TAB PO SCH (12:26)
--- NOTE | 2024-02-10 12:36 | Emergency Department Note ---
ED Visit Note Patient care team and signed for Dr. Villarreal. Patient currently pending reevaluation by pillowcase cutter as patient is unclear if his current desires. Patient eventually agreeable to inpatient treatment after discussion of visiting healthcare technician. He is been off his medications and hearing voices and talking to God. Patient excepted to 3 S. here. 201 signed. .
--- OUTSIDE RECORDS SUMMARY | 2024-02-10 12:39 | External Medical Summary | Summary of Care ---
Author Name Unknown Organization [facility] Address [address] [place] [address] Phone [phone] Care Team Providers Care Coke Handling Supervisor Name Role Phone Michelle GUPTA MD, Deonte Mays Primary Care Provider [phone] Encounter Details Date Type Department Care Team (Late st Contact Info) Description 02/07/2024 Orders Only PATIENT PORTAL DO NOT DELETE THIS DEPT USED BY [place] [id number] Allergies Active Allergy Reactions Criticality Noted Date Comments Penicillins Unknown 04/18/2000 documented as of this encounter (statuses as of 02/07/2024) Medications PAXIL 30 MG PO TABSIndications:A nxiety state,Panic disorder bid 34 5 9 Active KLONOPIN 1 MG PO TABSIndications:t akes at 12 noon and 5:00 pm Take 1 Tablet by mouth in the morning and 1 Tablet before bedtime. 68 Tab 5 1 Active VITAMIN D 1000 UNITS PO CAPSIndications:D yslipidemia, goal to be determined TAKE 2 CAPSULES BY MOUTH DAILY FOR VITAMIN-D DEFICIENCY. 60 Cap 5 4 Active Additional Information Patient taking differently: 2,000 UnitsOralDaily(AM), Reported on 02/06/2024 benztropine (COGENTIN) 1 MG Tablet Take 1 Tablet by mouth in the morning and 1 Tablet before bedtime. Active Multiple Vitamin (DAILY-PITER) TABS daily. 0 7 Active OneTouch UltraSoft Lancets Use as directed daily as needed for Dizziness. Test daily as needed 50 Each 5 1 Active cloZAPine 200 MG Oral Tablet Take 1 Tablet by mouth every night at bedtime. Active guaiFENesin-DM 100-10 MG/5ML Oral Syrup (Robitussin DM) Take 5 mL by mouth 3 times a day as needed for Cough. 120 mL 2 Active Polyethylene Glycol 3350 17 GM/SCOOP Oral Powder (Miralax)Indicati ons:Other constipation Take 8.5 g by mouth in the morning. 714 g 5 2 Active Lidocaine 4 % External Patch Place 1 Patch topically on the skin daily. Active Our Security TeamTouch Verio w/Device Kit Use 1 time daily as needed E11.9 1 Kit 3 Active Our Security TeamTouch Verio In Vitro Strip (Glucose Blood) Testing one time daily as needed for symptoms E11.9 100 Strip 11 3 Active Topiramate 50 MG Oral Tablet (topAMAX) TAKE ONE TAB BY MOUTH TWICE DAILY *SEIZURES* 56 Tablet 11 4 Active Acetaminophen ER 650 MG Oral Tablet Extended Release (Tylenol 8 Hour Arthritis Pain) 1-2 tablets every 8 hours as needed 100 Tablet 3 4 Active Lisinopril 20 MG Oral Tablet (Prinivil) TAKE ONE TABLET BY MOUTH DAILY *HTN* 28 Tablet 5 4 Active Meloxicam 15 MG Oral Tablet (Mobic)Indication s:Chronic bilateral low back pain with right-sided sciatica,Lumbar degenerative disc disease,Facet arthropathy, lumbar TAKE 1 TABLET BY MOUTH ONCE DAILY FOR PAIN, NO OTHER NSAIDS WHILE ON MED, MAY TAKE TYLENOL NEEDED 28 Tablet 5 4 Active Levothyroxine Sodium 25 MCG Oral Tablet (Levoxyl) TAKE ONE TABLET BY MOUTH DAILY *HYPOTHYROIDISM * 30 Tablet 4 4 Active Atorvastatin Calcium 40 MG Oral Tablet (Lipitor) TAKE 1 TABLET BY MOUTH DAILY AT BEDTIME (CHOLESTEROL) 28 Tablet 11 4 Active Zoster Vac Recomb Adjuvanted 50 MCG/0.5ML Intramuscular Suspension Reconstituted (Shingrix) Inject 0.5 mL into a large muscle now and repeat dose in 60 to 180 days 1 Each 1 12/19/2023 9:18 AM EDT 4 Active Nicotine 21 MG/24HR Transdermal Patch 24 Hour (Nicoderm CQ) Place 1 Patch over 24 hours topically on the skin in the morning. On upper body/upper arm, change once a day for 6 weeks.. 42 Patch 4 Active Tamsulosin HCl 0.4 MG Oral Capsule (Flomax) TAKE ONE CAPSULE BY MOUTH ONCE DAILY TO STRENGTHEN URINARY STREAM 28 Capsule 5 4 Active metFORMIN HCl 1000 MG Oral Tablet (Glucophage) TAKE ONE TABLET BY MOUTH TWICE DAILY *DM* 56 Tablet 5 4 Active documented as of this encounter (statuses as of 02/07/2024) Active Problems Problem Noted Date Diagnosed Date Absence seizure 06/19/2023 Chronic obstructive pulmonary disease 01/31/2021 Morbid obesity due to excess calories 05/10/2020 Diabetes mellitus without complication 8 Seizure-like activity 05/28/2017 Post-void dribbling 08/06/2016 Encounter for long-term (current) use of medicat ions 05/07/2006 Overview (01/07/2017): ICD-10 update of inactive term Panic disorder 04/21/2001 Anxiety state 04/21/2001 Dyslipidemia, goal LDL below 100 04/18/2000 PARANOID SCHIZO-CHRONIC 04/14/2000 HTN, goal below 140/90 documented as of this encounter (statuses as of 02/07/2024) Resolved Problems Problem Noted Date Diagnosed Date Resolved Date Type 2 diabetes mellitus wit h hemoglobin A1c goal of less than 7.0% 10/27/2018 09/27/2019 Prediabetes 04/29/2017 10/29/2017 Overview: Per Prediabetes protocol #1 BMI 35-39 ISOLATED (SEE ACTUAL BMI) 06/12/2009 10/29/2017 Overview (06/12/2009): Per Obesity Taxonomy Encounter for long-term (cur rent) use of medications 05/07/2006 04/14/2008 Overview (01/07/2017): Resolved per Duplicate Protocol #2. ICD-10 update of inactive term Encounter for long-term (cur rent) use of medications 05/07/2006 04/14/2008 Overview (01/07/2017): Resolved per Duplicate Protocol #2. ICD-10 update of inactive term ADVANCE DIRECTIVE INFORMATION 08/21/2004 01/19/2024 Overview (08/21/2004): No, Advance Directive brochure offered , patient declined. SCHIZOPHRENIA NOS-UNSPEC 02/22/2004 Overview (04/14/2008): Resolved per Duplicate Protocol #2. Lung field abnormal 12/04/2000 12/19/19 18 SCHIZOPHRENIA NOS-UNSPEC OBESITY, UNSPECIFIED 010 Overview (06/12/2009): Per Obesity Taxonomy documented as of this encounter (statuses as of 02/07/2024) Immunizations Name Administration Dates Next Due COVID-19 mRNA, LNP-s, No Pre serve, 2-Dose Series (2Win-Solutions) 01/09/2021,04/27/2020,04/06/2020 H1N1 2009 Influenza, IM 01/29/2009 Hepatitis B, 20+ yrs 05/21/2011 PPD 11/09/2013,05/21/2011 Pneumococcal Conjugate Vacci ne, 20-valent ([id number]) 05/09/2022 Pneumococcal Polysaccharide PPV23 (Pneumovax) 12/18/2017 Seasonal Influenza Vac., MDV , IM, 0.5 mL (Fluzone) 11/11/2013,01/11/2013,05/14/2012,01/07,02/12/2010,01/11/2009 Seasonal Influenza, High Dos e, Trivalent, PF, IM (Fluzone HD) 12/19/2023 Seasonal Influenza, PF, 6 M & above, IM , (FluLaval or Fluzone) 12/16/2022,11/30/2020,01/03/2020,12/18,12/18/2017,02/27/2017 Seasonal Influenza, Quadriva lent, No Preserve, IM 04/12/2016,04/12/2015 TDAP, Age 7 and older, IM (Adacel) 02/12/2021, Zoster Vaccine Recombinant (Shingrix) 12/19/2023 documented as of this encounter Social History Tobacco Use Types Packs/Day Years Used Date Smoking Tobacco: Never Smokeless Tobacco: Former Chew Comments:3/4 can of chewing tobacco per day Alcohol Use Standard Drinks/Week Comments No 0 (1 standard drink = 0.6 oz pur e alcohol) PHQ-2 Answer Date Recorded PHQ Adult Total Score 0 02/06/2024 Sex and Gender Information Value Date Recorded Sex Assigned at Not on file Legal Sex Male 5:14 AM EST Gender Identity Not on file Sexual Orientation Not on file documented as of this encounter Plan of Treatment Upcoming Encounters Date Type Department Care Team (Late st Contact Info) Description 03/18/2024 9:00 AM EST Office Visit Neurology [facility] [address] [facility] [place] [address] Dona Granados PA-C [address] [place] [address] 12/13/2024 8:30 AM EDT [facility] [address] [facility] [place] [address] 12/21/2024 8:30 AM EDT Office Visit Urology, [facility] [address] [facility] [place] [address] Chay Kelly MD [address] [place] [address] Health Maintenance Due Date Last Done Comments Alpha-1 Antitrypsin 06/12/1975 Cologuard 2002 Fecal Occult Blood Test 2002 Sigmoidoscopy 2002 Adult Wellness Visit 06/12/2023 COVID-19 Vaccine ( season) 2023 01/09/2021, 04/27/2020, 04/06/2020 Diabetic Foot Exam 02/05/2024 02/04/2023, 1 , 10/27/2018, Additional history exists Zoster Vaccines (2 of 2) 02/13/2024 12/19/2023 GFR 06/18/2024 06/19/2023, 03/0 10/2022, 07/25/2021, Additional history exists HbA1c 06/18/2024 12/19/2023, 04/0 06/2023, 01/08/2023, Additional history exists TSH 06/18/2024 06/19/2023, 12/16, 02/20/2022, Additional history exists Diabetic Eye Exam 11/03/2024 11/04/2023, , 01/29/2022 (Done elsewhere), Additional history exists Albumin/Creatinine Ratio 12/18/2024 024, 10/16/2022, 08/08/2021, Additional history exists B-12 12/18/2024 12/19/2023, 12/16, 08/14/2022, Additional history exists Depression Screening 02/05/2025 02/06/2024, 10/29/2017 (Discussed) O2 ASSESSMENT COMPLETED IN PAST YEAR FOR COPD 02/05/2025 02/06/2024 Lipid Panel 12/18/2028 12/19/2023, 12/16, 04/24/2022, Additional history exists Colonoscopy 09/13/2030 09/13/2020, 08/17, 07/26/2020, Additional history exists Colorectal Cancer Screening 09/13/2030 DTap/Tdap Vaccines (3 - Td or Tdap) 02/12/2031 02/12/2021, 05/29/2010, 05/13/2000 Hepatitis B Vaccine Completed 05/21/2011, 12/02/2001, 10/21/2001 Pneumococcal Vaccine: 65+ Years Completed 05/09/2022, 12/18/2017 Influenza Vaccine (FLU shot) Completed 06/2023, 12/16/2022, 11/30/2020, Additional history exists HPV (Gardasil) Vaccine Aged Out No lo nger eligible based on patient's age to complete this topic MENINGOCOCCAL (MENACTRA/MENVEO) Aged Out No longer eligible based on patient's age to complete this topic documented as of this encounter Medical Devices Not on filedocumented as of this encounter Care Teams Coke Handling Supervisor Relationship Specialty Start Date End Date Deonte Martinez III, MD [address] [facility] [place] [address] PCP - General 01/26/01 documented as of this encounter
--- OUTSIDE RECORDS SUMMARY | 2024-02-10 12:39 | External Medical Summary | Summary of Care ---
Author Name Unknown Organization [facility] Address [address] [place] [address] Phone [phone] Care Team Providers Care Nuclear Fuels Reclamation Engineer Name Role Phone Michelle GUPTA MD, Deonte Mays Primary Care Provider Reason for Visit * Reason Comments Physical-Exam Encounter Details Date Type Department Care Team (Late st Contact Info) Description 02/06/2024 9:00 AM EST Office Visit Family Practice [facility] [address] [facility] [place] [address] Deonte Martinez III, MD [address] [facility] [place] [address] Routine medical exam*; HTN, goal below 140/90; Diabetes mellitus without complication (HCC); Chronic obstructive pulmonary disease, unspecified COPD type (HCC); PARANOID SCHIZO-CHRONIC Allergies Active Allergy Reactions Criticality Noted Date Comments Penicillins Unknown 04/18/2000 documented as of this encounter (statuses as of 02/06/2024) Medications PAXIL 30 MG PO TABSIndications:A nxiety [...] Patch topically on the skin daily. Active OneTouch Verio w/Device Kit Use 1 time daily as needed E11.9 1 Kit 3 Active OneTouch Verio In Vitro Strip (Glucose Blood) Testing [...] as of this encounter (statuses as of 02/06/2024) Active Problems Problem Noted Date Diagnosed Date [...] as of this encounter (statuses as of 02/06/2024) Resolved Problems Problem Noted Date Diagnosed Date [...] as of this encounter (statuses as of 02/06/2024) Immunizations Name Administration Dates Next Due COVID-19 mRNA, LNP-s, No Pre serve, 2-Dose Series (Un[employer] Communication) 01/09/2021,04/27/2020,04/06/2020 H1N1 2009 Influenza, IM 01/29/2009 Hepatitis B, 20+ yrs 05/21/2011 PPD 11/09/2013,05/21/2011 Pneumococcal Conjugate Vacci ne, 20-valent ([id number]) 05/09/2022 Pneumococcal Polysaccharide PPV23 (Pneumovax) 12/18/2017 Seasonal [...] Smoking Tobacco: Never Smokeless Tobacco: Former Chew Tobacco Cessation:Counseling Given: Not Answered Comments:3/4 can of chewing tobacco per day [...] on file documented as of this encounter Last Filed Vital Signs Vital Sign Reading Time Taken Comments Blood Pressure 116/64 02/06/2024 8:47 AM EST man ual Pulse 81 02/06/2024 8:47 AM EST Temperature 35.7 C (96.3 F) 02/06/2024 8:47 AM ES T Respiratory Rate 20 02/06/2024 8:47 AM EST Oxygen Saturation 98% 02/06/2024 8:47 AM EST RA Inhaled Oxygen Concentration - - Weight 117.7 kg (259 lb 8 oz) 02/06/2024 8:47 AM EST Height 179.7 cm (5' 10.75") 02/06/2024 8:[address] Body Mass Index 36.45 02/06/2024 8:47 AM EST documented in this encounter Progress Notes * Deonte Martinez III, MD - 02/06/2024 9:26 AM EST Subjective: Neftaly Rich is a 68 year old male. Chief Complaint Patient presents with Physical-Exam HPI: Physical examination form completion dyslipidemia hypertension paranoid schizophrenia chronic COPD diabetes mellitus eyes are checked no swallowing difficulties generally is breathing does not stop him no bleeding urine or bowels no exertional chest pain no swelling of his ankles no claudication type complaints PHM: Patient Active Problem List Diagnosis PARANOID SCHIZO-CHRONIC Dyslipidemia, goal LDL below 100 Panic disorder Anxiety state HTN, goal below 140/90 Encounter for long-term (current) use of medications Post-void dribbling Seizure-like activity (HCC) Diabetes mellitus without complication (HCC) Morbid obesity due to excess calories (HCC) Chronic obstructive pulmonary disease (HCC) Absence seizure (HCC) Current Outpatient Medications Medication Sig Dispense Refill PAXIL 30 MG PO TABS bid 34 5 VITAMIN D 1000 UNITS PO CAPS TAKE 2 CAPSULES BY MOUTH DAILY FOR VITAMIN-D DEFICIENCY. (Patient taking differently: Take 2 Capsules by mouth in the morning.) 60 Cap 5 benztropine (COGENTIN) 1 MG Tablet Take 1 Tablet by mouth in the morning and 1 Tablet before bedtime. Multiple Vitamin (DAILY-PITER) TABS daily. 0 Clarivoyuch UltraSoft Lancets Use as directed daily as needed for Dizziness. Test daily as needed 50 Each 5 cloZAPine 200 MG Oral Tablet Take 1 Tablet by mouth every night at bedtime. guaiFENesin-DM 100-10 MG/5ML Oral Syrup (Robitussin DM) Take 5 mL by mouth 3 times a day as needed for Cough. 120 mL 0 Polyethylene Glycol 3350 17 GM/SCOOP Oral Powder (Miralax) Take 8.5 g by mouth in the morning. 714 g 5 Lidocaine 4 % External Patch Place 1 Patch topically on the skin daily. Animated Speech Verio w/Device Kit Use 1 time daily as needed E11.9 1 Kit 0 Clarivoyuch Verio In Vitro Strip (Glucose Blood) Testing one time daily as needed for symptoms E11.9 100 Strip 11 Topiramate 50 MG Oral Tablet (topAMAX) TAKE ONE TAB BY MOUTH TWICE DAILY *SEIZURES* 56 Tablet 11 Acetaminophen ER 650 MG Oral Tablet Extended Release (Tylenol 8 Hour Arthritis Pain) 1-2 tablets every 8 hours as needed 100 Tablet 3 Lisinopril 20 MG Oral Tablet (Prinivil) TAKE ONE TABLET BY MOUTH DAILY *HTN* 28 Tablet 5 Meloxicam 15 MG Oral Tablet (Mobic) TAKE 1 TABLET BY MOUTH ONCE DAILY FOR PAIN, NO OTHER NSAIDS WHILE ON MED, MAY TAKE TYLENOL NEEDED 28 Tablet 5 Levothyroxine Sodium 25 MCG Oral Tablet (Levoxyl) TAKE ONE TABLET BY MOUTH DAILY *HYPOTHYROIDISM* 30 Tablet 4 Atorvastatin Calcium 40 MG Oral Tablet (Lipitor) TAKE 1 TABLET BY MOUTH DAILY AT BEDTIME (CHOLESTEROL) 28 Tablet 11 Nicotine 21 MG/24HR Transdermal Patch 24 Hour (Nicoderm CQ) Place 1 Patch over 24 hours topically on the skin in the morning. On upper body/upper arm, change once a day for 6 weeks.. 42 Patch 0 Tamsulosin HCl 0.4 MG Oral Capsule (Flomax) TAKE ONE CAPSULE BY MOUTH ONCE DAILY TO STRENGTHEN URINARY STREAM 28 Capsule 5 metFORMIN HCl 1000 MG Oral Tablet (Glucophage) TAKE ONE TABLET BY MOUTH TWICE DAILY *DM* 56 Tablet 5 KLONOPIN 1 MG PO TABS Take 1 Tablet by mouth in the morning and 1 Tablet before bedtime. (Patient not taking: Reported on 02/06/2024) 68 Tab 5 Zoster Vac Recomb Adjuvanted 50 MCG/0.5ML Intramuscular Suspension Reconstituted (Shingrix) Inject 0.5 mL into a large muscle now and repeat dose in 60 to 180 days 1 Each 1 No current facility-administered medications for this visit. Past Medical History: Diagnosis Date Dyslipidemia, goal LDL below 160 HTN, goal below 140/90 Obesity, BMI not known Schizophrenia (HCC) Past Surgical History: Procedure Laterality Date COLONOSCOPY, DIAGNOSTIC (RECTUM) 07/26/2020 poor prep, repeat / COLONOSCOPY FLEXIBLE [facility]IM[facility]ST[facility]ST[facility] (RECTUM) 09/13/2020 poor prep, repeat 1 yr / COLONOSCOPY FLEXIBLE PROXIMAL DIAGNOSTIC performed by Chris Power MD at [facility] CYSTOSCOPY 06/02/[address] Duarte in office EGD, FLEXIBLE, DIAGNOSTIC 01/07/2019 Z line,valve flap-ESOPHAGOGASTRODUODENOSCOPY (EGD), FLEXIBLE, TRANSORAL, DIAGNOSTIC performed by Ami Silverio MD at [facility] REMOVAL OF TONSILS, UNDER AGE 12 Tonsils Removal,<12 Y/O Review of patient's allergies indicates: Allergen Reactions Penicillins Unknown Objective: BP 116/64 Comment: manual | Pulse 81 | Temp 96.3 F (35.7 C) (Tympanic) | Resp 20 | Ht 5' 10.75"(1.797 m) | Wt 259 lb 8 oz (117.7 kg) | SpO2 98% Comment: RA | BMI 36.45 kg/m | BSA 2.42 m Physical Exam: General: alert, healthy, and no distress Eye Exam: PERRLA, extraocular movements intact, conjunctiva are pink and non- injected, sclera clear Ears: External ears normal, Canals clear, TM's Normal Oropharynx: no exudate, no erythema, lips, buccal mucosa, and tongue normal, and mucous membranes are moist Neck: supple, no adenopathy, no bruits, thyroid normal size, non-tender, without nodularity Heart: regular rate & rhythm, no murmur, and no gallops Lungs: lungs clear to auscultation Pulses: carotid=2/4 w/o bruits Abdomen: abdomen soft, non-tender, normal bowel sounds, and no masses or organomegaly Extremities: no edema, no clubbing, no cyanosis Neuro Exam: alert & oriented x 3 with fluent speech, reflexes normal and symmetric ASSESSMENT/PLAN: Routine medical exam (Primary) HTN, goal below 140/90 Diabetes mellitus without complication (HCC) Chronic obstructive pulmonary disease, unspecified COPD type (HCC) PARANOID SCHIZO-CHRONIC Form completed will be scanned into the chart sees Psychiatry week of February RSV vaccine discussed encouraged Total time 32 minutes Follow Up: Return in about 19 weeks (around 06/18/2024). Deonte Martinez III, MD documented in this encounter Nursing Notes * Namita Lomax NA - 02/06/2024 8:48 AM EST Neftaly Rich presents for annual physical exam. Patient denies any concerns at this time. He presents to the office to complete MA-51 medical evaluation form. Medications & HM reviewed. documented in this encounter Plan of Treatment Upcoming Encounters Date Type Department Care Team (Late st Contact Info) Description 03/18/2024 9:00 AM EST Office Visit [facility]rology [facility] [address] [facility] [place] [address] Dona Granados PA-C [address] [facility] [place] [address] 12/13/2024 8:30 AM EDT Imaging Radiology [facility] [address] [facility] [place] [address] 12/21/2024 8:30 AM EDT Office Visit Urology, [facility] [address] [facility] [place] [address] Chay Kelly MD [address] [place] [address] Health Maintenance Due Date Last Done Comments [...] Not on filedocumented as of this encounter Visit Diagnoses Diagnosis Routine medical exam- Primary Routine general medical examination at a health care facility HTN, goal below 140/90 Unspecified essential hypertension Diabetes mellitus without complication (HCC) Type II or unspecified type diabetes mellitus without mention of complication, not stated as uncontrolled Chronic obstructive pulmonary disease, unspecified COPD type (HCC) PARANOID SCHIZO-CHRONIC Paranoid schizophrenia, chronic condition documented in this encounter Care Teams Nuclear Fuels Reclamation Engineer Relationship Specialty Start Date End Date Deonte Martinez III, MD [address] [facility] [place] [address] PCP - General 01/26/01 documented as of this encounter
--- OUTSIDE RECORDS SUMMARY | 2024-02-10 12:40 | External Medical Summary ---
Author Name Unknown Address Unknown Organization [id number]:[place] [facility] [place] [address] [place] [address] Laboratory Report Ordering Provider Test Date Status ZORAN BANGURA 01/07/2024 07:50:13 Final Associated diagnosis code V5 8.69.ICD-9-CM was changed to 317186 on 12/16/23 as a result of a periodic change by regulatory authority. Observation Date Value Abnormality Reference (Units ) Status WBC, Total 01/07/2024 07:50:13 10.16 4.00-10.80 (K/uL) Final RBC 01/07/2024 07:50:13 4.54 4.50-5.25 (M/uL) Final Hemoglobin 01/07/2024 07:50:13 14.1 14.0-16.8 (g/dL) Final HCT 01/07/2024 07:50:13 44.3 40.0-48.4 (%) Final MCV 01/07/2024 07:50:13 97.6 82.0-99.5 (fL) Final MCH 01/07/2024 07:50:13 31.1 27.0-34.0 (pg) Final MCHC 01/07/2024 07:50:13 31.8 32.0-36.0 (g/dL) Final RDW 01/07/2024 07:50:13 13.2 11.5-15.5 (%) Final Platelets 01/07/2024 07:50:13 185 140-400 (K/uL) Final MPV 01/07/2024 07:50:13 12.5 6.6-11.1 (fL) Final Nucleated erythrocytes/100 leukocytes [Ratio] in Blood by Automated count 01/07/2024 07:50:13 0 <=0 (/100 WBCs) Final Performing Location [facility] - [address] [place] [address]
--- OUTSIDE RECORDS SUMMARY | 2024-02-10 12:40 | External Medical Summary ---
Author Name Unknown Address Unknown Organization [id number][place] [facility] [place] [address] [place] [address] Laboratory Report Ordering Provider Test Date Status ZORAN BANGURA 02/04/2024 08:27:53 Final Associated diagnosis code V5 8.69.ICD-9-CM was changed to 811230 on 12/16/23 as a result of a periodic change by regulatory authority. Observation Date Value Abnormality Reference (Units ) Status WBC, Total 02/04/2024 08:27:53 10.27 4.00-10.80 (K/uL) Final RBC 02/04/2024 08:27:53 5.02 4.50-5.25 (M/uL) Final Hemoglobin 02/04/2024 08:27:53 15.4 14.0-16.8 (g/dL) Final HCT 02/04/2024 08:27:53 48.6 Above high normal 40.0-48.4 (%) Final MCV 02/04/2024 08:27:53 96.8 82.0-99.5 (fL) Final MCH 02/04/2024 08:27:53 30.7 27.0-34.0 (pg) Final MCHC 02/04/2024 08:27:53 31.7 32.0-36.0 (g/dL) Final RDW 02/04/2024 08:27:53 13.0 11.5-15.5 (%) Final Platelets 02/04/2024 08:27:53 193 140-400 (K/uL) Final MPV 02/04/2024 08:27:53 12.3 6.6-11.1 (fL) Final Nucleated erythrocytes/100 leukocytes [Ratio] in Blood by Automated count 02/04/2024 08:27:53 0 <=0 (/100 WBCs) Final Performing Location [facility] - [address] [place] [address]
--- OUTSIDE RECORDS SUMMARY | 2024-02-10 12:40 | External Medical Summary | Summary of Care ---
Author Name Unknown Organization [facility] Address [address] [place] [address] Phone [phone] Care Team Providers Care Creative Perfumer Name Role Phone Michelle GUPTA MD, Nikita Mays Primary Care Provider [phone] Reason for Visit * Reason Comments eRx-Medication Refill Encounter Details Date Type Department Care Team (Late st Contact Info) Description 02/03/2024 Refill Family Practice [facility] [place] [address] [place] [address] Nikita Esteban III, MD [address] [place] [address] Encounter for long-term (current) use of medications* Allergies Active Allergy Reactions Criticality Noted Date Comments Penicillins Unknown 04/18/2000 documented as of this encounter (statuses as of 02/05/2024) Medications PAXIL 30 MG PO TABSIndications: Anxiety state,Panic disorder bid 34 5 07/27/19 09 Active KLONOPIN 1 MG PO TABSIndications: takes at 12 noon and 5:00 pm Take 1 Tablet by mouth in the morning and 1 Tablet before bedtime. 68 Tab 5 03/06/20 11 Active VITAMIN D 1000 UNITS PO CAPSIndications: Dyslipidemia, goal to be determined TAKE 2 CAPSULES BY MOUTH DAILY FOR VITAMIN-D DEFICIENCY. 60 Cap 5 02/24/20 14 Active Additional Information Patient taking differently: 2,000 UnitsOralDaily(AM), Reported on 03/14/2022 benztropine (COGENTIN) 1 MG Tablet Take 1 Tablet by mouth in the morning and 1 Tablet before bedtime. Active Multiple Vitamin (DAILY-PITER) TABS daily. 0 03/03/20 17 Active Rockwell MedicalTouch UltraSoft Lancets Use as directed daily as needed for Dizziness. Test daily as needed 50 Each 5 05/12/19 21 Active cloZAPine 200 MG Oral Tablet Take 1 Tablet by mouth every night at bedtime. Active guaiFENesin-DM 100-10 MG/5ML Oral Syrup (Robitussin DM) Take 5 mL by mouth 3 times a day as needed for Cough. 120 mL 01/23/20 22 Active Polyethylene Glycol 3350 17 GM/SCOOP Oral Powder (Miralax)Indicat ions:Other constipation Take 8.5 g by mouth in the morning. 714 g 5 01/30/20 22 Active Lidocaine 4 % External Patch Place 1 Patch topically on the skin daily. Active NJOY Verio w/Device Kit Use 1 time daily as needed E11.9 1 Kit 04/22/[address] In Vitro Strip (Glucose Blood) Testing one time daily as needed for symptoms E11.9 100 Strip 11 04/29/19 23 Active Topiramate 50 MG Oral Tablet (topAMAX) TAKE ONE TAB BY MOUTH TWICE DAILY *SEIZURES* 56 Tablet 11 05/08/19 24 Active Acetaminophen ER 650 MG Oral Tablet Extended Release (Tylenol 8 Hour Arthritis Pain) 1-2 tablets every 8 hours as needed 100 Tablet 3 07/02/19 24 Active Lisinopril 20 MG Oral Tablet (Prinivil) TAKE ONE TABLET BY MOUTH DAILY *HTN* 28 Tablet 5 09/23/19 24 Active Meloxicam 15 MG Oral Tablet (Mobic)Indicatio ns:Chronic bilateral low back pain with right-sided sciatica,Lumbar degenerative disc disease,Facet arthropathy, lumbar TAKE 1 TABLET BY MOUTH ONCE DAILY FOR PAIN, NO OTHER NSAIDS WHILE ON MED, MAY TAKE TYLENOL NEEDED 28 Tablet 5 09/23/19 24 Active Levothyroxine Sodium 25 MCG Oral Tablet (Levoxyl) TAKE ONE TABLET BY MOUTH DAILY *HYPOTHYROIDIS M* 30 Tablet 4 10/16/19 24 Active Atorvastatin Calcium 40 MG Oral Tablet (Lipitor) TAKE 1 TABLET BY MOUTH DAILY AT BEDTIME (CHOLESTEROL) 28 Tablet 11 12/20/19 24 Active Zoster Vac Recomb Adjuvanted 50 MCG/0.5ML Intramuscular Suspension Reconstituted (Shingrix) Inject 0.5 mL into a large muscle now and repeat dose in 60 to 180 days 1 Each 1 4 9:18 AM EDT 12/19/19 Active Nicotine 21 MG/24HR Transdermal Patch 24 Hour (Nicoderm CQ) Place 1 Patch over 24 hours topically on the skin in the morning. On upper body/upper arm, change once a day for 6 weeks.. 42 Patch 01/13/20 Active Tamsulosin HCl 0.4 MG Oral Capsule (Flomax) TAKE ONE CAPSULE BY MOUTH ONCE DAILY TO STRENGTHEN URINARY STREAM 28 Capsule 5 02/05/20 24 Active metFORMIN HCl 1000 MG Oral Tablet (Glucophage) TAKE ONE TABLET BY MOUTH TWICE DAILY *DM* 56 Tablet 5 02/05/20 24 Active Tamsulosin HCl 0.4 MG Oral Capsule (Flomax) TAKE ONE CAPSULE BY MOUTH ONCE DAILY TO STRENGTHEN URINARY STREAM 28 Capsule 4 08/27/19 24 2023 Discontinued metFORMIN HCl 1000 MG Oral Tablet (Glucophage) TAKE ONE TABLET BY MOUTH TWICE DAILY *DM* 56 Tablet 4 08/27/19 24 2023 Discontinued documented as of this encounter (statuses as of 02/05/2024) Active Problems Problem Noted Date Diagnosed Date [...] as of this encounter (statuses as of 02/05/2024) Resolved Problems Problem Noted Date Diagnosed Date [...] as of this encounter (statuses as of 02/05/2024) Immunizations Name Administration Dates Next Due COVID-19 mRNA, LNP-s, No Pre serve, 2-Dose Series (MediKeeper) 01/09/2021,04/27/2020,04/06/2020 H1N1 2009 Influenza, IM 01/29/2009 Hepatitis B, 20+ yrs 05/21/2011 PPD 11/09/2013,05/21/2011 Pneumococcal Conjugate Vacci ne, 20-valent ([id number]) 05/09/2022 Pneumococcal Polysaccharide PPV23 (Pneumovax) 12/18/2017 Seasonal [...] Used Date Smoking Tobacco: Never Smokeless Tobacco: Current Chew Comments:3/4 can of chewing tobacco per day Alcohol Use Standard Drinks/Week Comments No 0 (1 standard drink = 0.6 oz pur e alcohol) PHQ-2 Answer Date Recorded PHQ Adult Total Score 0 05/29/2020 Sex and Gender Information Value Date Recorded Sex Assigned at Not on file Legal Sex Male 5:14 AM EST Gender Identity Not on file Sexual Orientation Not on file documented as of this encounter Miscellaneous Notes * Telephone Encounter - Elizabet Lemos [facility] - 02/05/2024 8:39 AM ESTSigned Prescriptions: Disp Refills Tamsulosin HCl 0.4 MG Oral Capsule (Flomax)28 Cap*5 Sig: TAKE ONE CAPSULE BY MOUTH ONCE DAILY TO STRENGTHEN URINARY STREAMAuthorizing Provider: NIKITA ESTEBAN III User: ELIZABET LEMOS metFORMIN HCl 1000 MG Oral Tablet (Glucoph*56 Tab*5 Sig: TAKE ONE TABLET BY MOUTH TWICE DAILY *DM*Authorizing Provider: NIKITA ESTEBAN III User: ELIZABET LEMOS * Telephone Encounter - Elizabet Lemos RPh - 02/05/2024 8:38 AM EST Had LDL drawn but needs lipid panel. May obtain with next routine labs. Elizabet Baker Clinical Pharmacist [facility] [phone] 02/05/2024, 8:39 AM documented in this encounter Plan of Treatment Upcoming Encounters Date Type Department Care Team (Late st Contact Info) Description 02/06/2024 9:00 AM EST Office Visit Family Practice [facility] [address] [facility] [place] [address] Nikita Esteban III, MD [address] [facility] [place] [address] 03/18/2024 9:00 AM EST Office Visit Neurology [facility] [address] [place] [address] Dona Granados PA-C [address] [address] 12/13/2024 8:30 AM EDT Imaging Radiology [facility] [address] [facility] [place] [address] 12/21/2024 8:30 AM EDT Office Visit Urology, [facility] [address] [facility] [place] [address] Chay Kelly MD [address] [phone] Scheduled Orders Name Type Priority Associated Diagnoses Orde r Schedule LIPID PANEL WITH DIRECT LDL IF TG IS HIGH Lab Routine Encounter for long-term (current) use of medications Expected: 02/12/2024 (Approximate), Expires: 02/04/2025 Health Maintenance Due Date Last Done Comments Alpha-1 Antitrypsin 06/12/1975 Cologuard 2002 Fecal Occult Blood Test 2002 Sigmoidoscopy 2002 Depression Screening 05/29/2021 05/29/2020, 10/29/2017 (Discussed) Adult Wellness Visit 06/12/2023 COVID-19 Vaccine ( [...] 12/18/2024 12/19/2023, 12/16, 08/14/2022, Additional history exists O2 ASSESSMENT COMPLETED IN PAST YEAR FOR COPD 12/18/2024 12/19/2023 Lipid Panel 12/18/2028 12/19/2023, 12/16, 04/24/2022, Additional [...] as of this encounter Visit Diagnoses Diagnosis Encounter for long-term (current) use of medications- Primary Encounter for long-term (current) use of other medications documented in this encounter Care Teams Creative Perfumer Relationship Specialty Start Date End Date Nikita Esteban III, MD [address] [place] [address] PCP - General 01/26/01 documented as of this encounter
--- OUTSIDE RECORDS SUMMARY | 2024-02-10 12:40 | External Medical Summary ---
Author Name Unknown Address Unknown Organization K01:[facility] [place] [address] [place] [address] Laboratory Report Ordering Provider Test Date Status CARLITO SHELTON III 12/19/2023 08:39:33 Final Normal: <30 mg/g creatinine< br/>High: 30-300 mg/g creatinine
Very High: >300 mg/g creatinine
Nephrotic: >2200 mg/g creatinine Observation Date Value Abnormality Reference (Units ) Status Albumin, Urine 12/19/2023 08:39:33 <1.20 (mg/dL) Final Creatinine, Urine 12/19/2023 08:39:33 179 (mg/dL) Final Albumin/Creatinine [Mass Ratio] in Urine 12/19/2023 08:39:33 <7 <30 (mg/g Creat) Final Performing Location [facility] [place] [address] [place] [address]
--- OUTSIDE RECORDS SUMMARY | 2024-02-10 12:40 | External Medical Summary ---
Author Name Unknown Address Unknown Organization K01[place] [place] [address] [facility] [address] Laboratory Report Ordering Provider Test Date Status ZORAN BANGURA 02/04/2024 08:27:53 Final Associated diagnosis code V5 8.69.ICD-9-CM was changed to 468578 on 12/16/23 as a result of a periodic change by regulatory authority. Observation Date Value Abnormality Reference (Units ) Status SYNC LEUKOCYTES IN BLOOD BY AUTOMATED COUNT 02/04/2024 08:27:53 10.27 4.00-10.80 (K/uL) Final Segs 02/04/2024 08:27:53 74.5 40.0-75.0 (%) Final Lymphs % 02/04/2024 08:27:53 15.8 Below low normal 18.0-42.0 (%) Final Monos 02/04/2024 08:27:53 5.9 1.0-11.0 (%) Final Eosinophils 02/04/2024 08:27:53 2.6 0.0-6.0 (%) Final Basos 02/04/2024 08:27:53 0.6 0.0-2.0 (%) Final Immature Granulocyte, Percent 02/04/2024 08:27:53 0.6 0.0-2.0 (%) Final Absolute Segs 02/04/2024 08:27:53 7.65 1.80-7.70 (K/uL) Final Lymphs, absolute 02/04/2024 08:27:53 1.62 1.00-4.80 (K/ul) Final Monos, Abs 02/04/2024 08:27:53 0.61 0.00-1.10 (K/uL) Final Eos, Abs 02/04/2024 08:27:53 0.27 0.00-0.70 (K/uL) Final Basos, Abs 02/04/2024 08:27:53 0.06 0.00-0.20 (K/uL) Final Immature Granulocytes, Number 02/04/2024 08:27:53 0.06 0.00-0.20 (K/uL) Final Performing Location [facility] [place] [facility] [address] [facility] [address]
--- OUTSIDE RECORDS SUMMARY | 2024-02-10 12:40 | External Medical Summary | Summary of Care ---
Author Name Unknown Organization [facility] Address [address] [place] [address] Phone [phone] Care Team Providers Care Economic Manager Name Role Phone Michelle GUPTA MD, Deonte Mays Primary Care Provider Reason for Visit * Reason Comments Outpatient Testing Encounter Details Date Type Department Care Team (Late st Contact Info) Description 02/04/2024 8:30 AM EST Laboratory Laboratory, [place] [address] [place] [phone] [place], [facility] [address] [place] [address] Encounter for long-term (current) use of medications Allergies Active Allergy Reactions Criticality Noted Date Comments Penicillins Unknown 04/18/2000 documented as of this encounter (statuses as of 02/04/2024) Medications PAXIL 30 MG PO TABSIndications:A nxiety [...] Patch topically on the skin daily. Active ElasticsearchTouch Verio w/Device Kit Use 1 time daily [...] as needed 100 Tablet 3 4 Active Tamsulosin HCl 0.4 MG Oral Capsule (Flomax) TAKE ONE CAPSULE BY MOUTH ONCE DAILY TO STRENGTHEN URINARY STREAM 28 Capsule 4 4 Active metFORMIN HCl 1000 MG Oral Tablet (Glucophage) TAKE ONE TABLET BY MOUTH TWICE DAILY *DM* 56 Tablet 4 4 Active Lisinopril 20 MG Oral Tablet [...] for 6 weeks.. 42 Patch 4 Active documented as of this encounter (statuses as of 02/04/2024) Active Problems Problem Noted Date Diagnosed Date [...] as of this encounter (statuses as of 02/04/2024) Resolved Problems Problem Noted Date Diagnosed Date [...] as of this encounter (statuses as of 02/04/2024) Immunizations Name Administration Dates Next Due COVID-19 mRNA, LNP-s, No Pre serve, 2-Dose Series (Noveporter) 01/09/2021,04/27/2020,04/06/2020 H1N1 2009 Influenza, IM 01/29/2009 Hepatitis B, 20+ yrs 05/21/2011 PPD 11/09/2013,05/21/2011 Pneumococcal Conjugate Vacci ne, 20-valent ([id number]) 05/09/2022 Pneumococcal Polysaccharide PPV23 (Pneumovax) 12/18/2017 Seasonal [...] 9:00 AM EST Office Visit Family Practice [facility] [address] [facility] [place] [address] Deonte Martinez III, MD [address] [facility] [place] [address] 03/18/2024 9:00 AM EST Office Visit Neurology [facility] [address] [facility] [place] [address] Dona Granados PA-C [address] [address] 12/13/2024 8:30 AM EDT Imaging Radiology [facility]st [facility] [address] [facility] [place] [address] 12/21/2024 8:30 AM EDT Office Visit Urology, [facility] [address] [facility] [place] [address] Chay Kelly MD [address] [place] [address] Pending Results Name Type Priority Associated Diagnoses Date /Time CBC WITH WBC DIFFERENTIAL Lab Routine Encounter for long-term (current) use of medications 02/04/2024 8:27 AM EST CBC Lab Routine Encounter for long-term (current) use of medications 02/04/2024 8:27 AM EST DIFFERENTIAL, AUTOMATED Lab Routine Encounter for long-term (current) use of medications 02/04/2024 8:27 AM EST Health Maintenance Due Date Last Done Comments [...] Diagnosis Encounter for long-term (current) use of medications Encounter for long-term (current) use of other medications documented in this encounter Care Teams Economic Manager Relationship Specialty Start Date End Date Deonte Martinez III, MD [address] [place] [address] PCP - General 01/26/01 documented as of this encounter
--- OUTSIDE RECORDS SUMMARY | 2024-02-10 12:40 | External Medical Summary ---
Author Name Unknown Address Unknown Organization K01:[facility] [place] - [address] [facility] [address] Laboratory Report Ordering Provider Test Date Status ZORAN BANGURA 01/07/2024 07:50:13 Final Associated diagnosis code V5 8.69.ICD-9-CM was changed to [id number] on 12/16/23 as a result of a periodic change by regulatory authority. Observation Date Value Abnormality Reference (Units ) Status SYNC LEUKOCYTES IN BLOOD BY AUTOMATED COUNT 01/07/2024 07:50:13 10.16 4.00-10.80 (K/uL) Final Segs 01/07/2024 07:50:13 59.8 40.0-75.0 (%) Final Lymphs % 01/07/2024 07:50:13 27.7 18.0-42.0 (%) Final Monos 01/07/2024 07:50:13 5.9 1.0-11.0 (%) Final Eosinophils 01/07/2024 07:50:13 5.8 0.0-6.0 (%) Final Basos 01/07/2024 07:50:13 0.6 0.0-2.0 (%) Final Immature Granulocyte, Percent 01/07/2024 07:50:13 0.2 0.0-2.0 (%) Final Absolute Segs 01/07/2024 07:50:13 6.08 1.80-7.70 (K/uL) Final Lymphs, absolute 01/07/2024 07:50:13 2.81 1.00-4.80 (K/ul) Final Monos, Abs 01/07/2024 07:50:13 0.60 0.00-1.10 (K/uL) Final Eos, Abs 01/07/2024 07:50:13 0.59 0.00-0.70 (K/uL) Final Basos, Abs 01/07/2024 07:50:13 0.06 0.00-0.20 (K/uL) Final Immature Granulocytes, Number 01/07/2024 07:50:13 0.02 0.00-0.20 (K/uL) Final Performing Location [facility] [place] - [facility] [address] [facility] [address]
--- OUTSIDE RECORDS SUMMARY | 2024-02-10 12:40 | External Medical Summary | Summary of Care ---
Author Name Unknown Organization [facility] Address [address] [place] [address] Phone [phone] Care Team Providers Care Director Of Claims Name Role Phone Michelle GUPTA MD, Deonte Mays Primary Care Provider Reason for Visit * Reason Onset Date Comments Re-Check Medication Administration 12/19/2023 Flu an d/or Pneumo Inj Encounter Details Date Type Department Care Team (Late st Contact Info) Description 12/19/2023 8:00 AM EDT Office Visit Family Practice [facility] [address] [facility] [address] Deonte Martinez III, MD [address] [place] [address] HTN, goal below 140/90*; Diabetes mellitus without complication (HCC); Dyslipidemia, goal LDL below 100; Encounter for long-term (current) use of medications; Need for prophylactic vaccination and inoculation against influenza; Need for shingles vaccine Allergies Active Allergy Reactions Criticality Noted Date Comments Penicillins Unknown 04/18/2000 documented as of this encounter (statuses as of 12/22/2023) Medications Medication Sig Dispensed Refills Start Date End Date Status PAXIL 30 MG PO TABSIndications:A nxiety state,Panic [...] Patch topically on the skin daily. Active IPtronics A/[employer] Verio w/Device Kit Use 1 time daily [...] *HYPOTHYROIDISM * 30 Tablet 4 4 Active Zoster Vac Recomb Adjuvanted 50 MCG/0.5ML Intramuscular Suspension Reconstituted (Shingrix) Inject 0.5 mL into a large muscle now and repeat dose in 60 to 180 days 1 Each 1 4 Active Anoro Ellipta 62.5-25 MCG/INH Inhalation Aerosol Powder Breath Activated (umeclidinium-carlie anterol) Inhale 1 Puff by mouth in the morning. 30 Each 11 2 12/19/19 24 Discontinued(Me dication List Clean Up) Ventolin HFA 108 (90 Base) MCG/ACT Inhalation Aerosol SolutionIndicatio ns:Chronic obstructive pulmonary disease, unspecified COPD type (HCC) USE 2 PUFFS EVERY 6 HOURS NEEDED FOR WHEEZING. 18 g 4 3 12/19/19 24 Discontinued(Me dication List Clean Up) Atorvastatin Calcium 40 MG Oral Tablet (Lipitor) TAKE 1 TABLET BY MOUTH DAILY AT BEDTIME (CHOLESTEROL) 90 Tablet 1 4 12/20/19 24 Discontinued documented as of this encounter (statuses as of 12/22/2023) Active Problems Problem Noted Date Diagnosed Date Absence seizure 06/19/2023 Chronic obstructive pulmonary disease 01/31/2021 Morbid obesity due to excess calories 05/10/2020 Diabetes mellitus without complication 8 Seizure-like activity 05/28/2017 Post-void dribbling 08/06/2016 Encounter for long-term (current) use of medicat ions 05/07/2006 Overview: ICD-10 update of inactive term ADVANCE DIRECTIVE INFORMATION 08/21/2004 Overview: No, Advance Directive brochure offered , patient declined. Panic disorder 04/21/2001 Anxiety state 04/21/2001 Dyslipidemia, goal LDL below 100 04/18/2000 PARANOID SCHIZO-CHRONIC 04/14/2000 HTN, goal below 140/90 documented as of this encounter (statuses as of 12/22/2023) Resolved Problems Problem Noted Date Diagnosed Date Resolved Date Type 2 diabetes mellitus wit h hemoglobin A1c goal of less than 7.0% 10/27/2018 09/27/2019 Prediabetes 04/29/2017 10/29/2017 Overview: Per Prediabetes protocol #1 BMI 35-39 ISOLATED (SEE ACTUAL BMI) 06/12/2009 10/29/2017 Overview: Per Obesity Taxonomy Encounter for long-term (cur rent) use of medications 05/07/2006 04/14/2008 Overview: Resolved per Duplicate Protocol #2. ICD-10 update of inactive term Encounter for long-term (cur rent) use of medications 05/07/2006 04/14/2008 Overview: Resolved per Duplicate Protocol #2. ICD-10 update of inactive term SCHIZOPHRENIA NOS-UNSPEC 02/22/2004 Overview: Resolved per Duplicate Protocol #2. Lung field abnormal 12/04/2000 12/19/19 18 SCHIZOPHRENIA NOS-UNSPEC OBESITY, UNSPECIFIED 010 Overview: Per Obesity Taxonomy documented as of this encounter (statuses as of 12/22/2023) Immunizations Name Administration Dates Next Due COVID-19 mRNA, LNP-s, No Pre serve, 2-Dose Series (Rapleaf) 01/09/2021,04/27/2020,04/06/2020 H1N1 2009 Influenza, IM 01/29/2009 Hepatitis B, 20+ yrs 05/21/2011 PPD 11/09/2013,05/21/2011 Pneumococcal Conjugate Vacci ne, 20-valent ([id number]) 05/09/2022 Pneumococcal Polysaccharide PPV23 (Pneumovax) 12/18/2017 Seasonal [...] Recorded Sex Assigned at Not on file Gender Identity Not on file Sexual Orientation Not on file Job Start Date Occupation Industry Not on file Not on file Not on file documented as of this encounter Last Filed Vital Signs Vital Sign Reading Time Taken Comments Blood Pressure 124/76 12/19/2023 7:32 AM EDT Pulse 74 12/19/2023 7:32 AM EDT Temperature 36.2 C (97.1 F) 12/19/2023 7:32 AM ED T Respiratory Rate 18 12/19/2023 7:32 AM EDT Oxygen Saturation 99% 12/19/2023 7:32 AM EDT Inhaled Oxygen Concentration - - Weight 123.2 kg (271 lb 9.6 oz) 12/19/2023 7:32 AM EDT Height 179.7 cm (5' 10.75") 12/19/2023 7:32 AM E DT per chart Body Mass Index 38.15 12/19/2023 7:32 AM EDT documented in this encounter Progress Notes * Kaylee Webb LPN - 12/19/2023 8:20 AM EDT PRE - ADMINISTRATION DOCUMENTATION Are you experiencing any cold symptoms or fever? No Have you had Guillain-Etna Syndrome (an illness that causes paralysis) within the last 6 weeks? No Have you had the flu shot in the past? YES Have you ever had a reaction to the flu shot? No Kaylee Webb LPN, 12/19/2023 8:20 AM Immunization Administration Documentation Time Out Procedure Performed: Yes Patient Identified (Ask Name/Date of ): Yes Does the patient have a fever greater than 101 degrees today? No Patient allergic to latex? No VFC Stock: No Immunization(s) verified: Yes, Immunization Name: Flu, VIS Sheet(s) given: Yes Verified Side and Site: Yes Verified Shot(s) with Parent(s)/Patient: Yes * Michelle GUPTA, Deonte Mays MD - 12/19/2023 8:19 AM EDT Subjective: Neftaly Rich is a 68 year old male. Chief Complaint Patient presents with Re-Check HPI: Follow up diabetes mellitus hypertension dyslipidemia generally feeling well no new concerns breathing is good not using any inhalers no exertional chest pain swelling no bleeding urine or bowels PMH: Patient Active Problem List Diagnosis PARANOID SCHIZO-CHRONIC Dyslipidemia, goal LDL below 100 Panic disorder Anxiety state HTN, goal below 140/90 ADVANCE DIRECTIVE INFORMATION Encounter for long-term (current) use of medications Post-void dribbling Seizure-like activity (HCC) Diabetes mellitus without complication (HCC) Morbid obesity due to excess calories (HCC) Chronic obstructive pulmonary disease (HCC) Absence seizure (HCC) Current Outpatient Medications Medication Sig Dispense Refill PAXIL 30 MG PO TABS bid 34 5 KLONOPIN 1 MG PO TABS Take 1 Tablet by mouth in the morning and 1 Tablet before bedtime. 68 Tab 5 VITAMIN D 1000 UNITS PO CAPS TAKE 2 CAPSULES BY MOUTH DAILY FOR VITAMIN-D DEFICIENCY. (Patient taking differently: Take 2 Capsules by mouth in the morning.) 60 Cap 5 benztropine (COGENTIN) 1 MG Tablet Take 1 Tablet by mouth in the morning and 1 Tablet before bedtime. Multiple Vitamin (DAILY-PITER) TABS daily. 0 OneTouch UltraSoft Lancets Use as directed daily [...] 1 Patch topically on the skin daily. [employer] Verio w/Device Kit Use 1 time daily as needed E11.9 1 Kit 0 IPtronics A/STouch Verio In Vitro Strip (Glucose Blood) Testing one time daily as needed for symptoms E11.9 100 Strip 11 Topiramate 50 MG Oral Tablet (topAMAX) TAKE ONE TAB BY MOUTH TWICE DAILY *SEIZURES* 56 Tablet 11 Atorvastatin Calcium 40 MG Oral Tablet (Lipitor) TAKE 1 TABLET BY MOUTH DAILY AT BEDTIME (CHOLESTEROL) 90 Tablet 1 Acetaminophen ER 650 MG Oral Tablet Extended Release (Tylenol 8 Hour Arthritis Pain) 1-2 tablets every 8 hours as needed 100 Tablet 3 Tamsulosin HCl 0.4 MG Oral Capsule (Flomax) TAKE ONE CAPSULE BY MOUTH ONCE DAILY TO STRENGTHEN URINARY STREAM 28 Capsule 4 metFORMIN HCl 1000 MG Oral Tablet (Glucophage) TAKE ONE TABLET BY MOUTH TWICE DAILY *DM* 56 Tablet 4 Lisinopril 20 MG Oral Tablet (Prinivil) TAKE ONE TABLET BY MOUTH DAILY *HTN* 28 Tablet 5 Meloxicam 15 MG Oral Tablet (Mobic) TAKE 1 TABLET BY MOUTH ONCE DAILY FOR PAIN, NO OTHER NSAIDS WHILE ON MED, MAY TAKE TYLENOL NEEDED 28 Tablet 5 Levothyroxine Sodium 25 MCG Oral Tablet (Levoxyl) TAKE ONE TABLET BY MOUTH DAILY *HYPOTHYROIDISM* 30 Tablet 4 Zoster Vac Recomb Adjuvanted 50 MCG/0.5ML Intramuscular Suspension Reconstituted (Shingrix) Inject 0.5 mL into a large muscle now and repeat dose in 60 to 180 days 1 Each 1 No current facility-administered medications for this visit. Review of patient's allergies indicates: Allergen Reactions Penicillins Unknown Past Medical History: Diagnosis Date Dyslipidemia, goal LDL below 160 HTN, goal below 140/90 Obesity, BMI not known Schizophrenia (HCC) Past Surgical History: Procedure Laterality Date COLONOSCOPY, DIAGNOSTIC (RECTUM) 07/26/2020 poor prep, repeat / COLONOSCOPY FLEXIBLE PROXIMAL DIAGNOSTIC performed by Chris Power MD atENDOSCOPY [facility] COLONOSCOPY, DIAGNOSTIC (RECTUM) 09/13/2020 poor prep, repeat 1 yr / COLONOSCOPY FLEXIBLE PROXIMAL DIAGNOSTIC performed by Chris Power MD at ENDOSCOPY [facility] CYSTOSCOPY 06/02/[address] Duarte in office EGD, FLEXIBLE, DIAGNOSTIC 01/07/2019 Z line,valve flap-ESOPHAGOGASTRODUODENOSCOPY (EGD), FLEXIBLE, TRANSORAL, DIAGNOSTIC performed by Ami Silverio MD at ENDOSCOPY [facility] REMOVAL OF TONSILS, UNDER AGE 12 Tonsils Removal,<12 Y/O Objective: The patient is a 68 year old male BP 124/76 | Pulse 74 | Temp 36.2 C (97.1 F) (Tympanic) | Resp 18 | Ht 1.797 m (5' 10.75") Comment: per chart | Wt 123.2 kg (271 lb 9.6 oz) | SpO2 99% | BMI 38.15 kg/m | BSA 2.48 m General: alert, healthy, and no distress Eye Exam: PERRLA, extraocular movements intact, conjunctiva are pink and non- injected, sclera clear Oropharynx: no exudate, no erythema, lips, buccal mucosa, and tongue normal, and mucous membranes are moist Heart: regular rate & rhythm, no murmur, and no gallops Lungs: lungs clear to auscultation Extremities: no edema, no clubbing, no cyanosis ASSESSMENT: (I10) HTN, goal below 140/90 (primary encounter diagnosis) (E11.9) Diabetes mellitus without complication (HCC) (E78.5) Dyslipidemia, goal LDL below 100 (Z79.899) Encounter for long-term (current) use of medications PLAN: Check A1c microalbumin B12 LDL flu vaccine and shingles vaccine given continue present meds Follow up in 6 month(s). Deonte Martinez III, MD documented in this encounter Nursing Notes * Arlene Barton LPN - 12/19/2023 7:28 AM EDT Neftaly Kirsten Rich presents for 6 month recheck. Medications & HM reviewed. documented in this encounter Plan of Treatment Upcoming Encounters Date Type Department Care Team (Late st Contact Info) Description 01/07/2024 8:30 AM EDT Laboratory Laboratory, [place] [address] [facility], [place] [phone] [place], Laboratory [address] [facility], [place] [address] 01/12/2024 1:00 PM EDT Hospital Encounter ENDO [facility], Endoscopy Room [facility] [address] [place] [phone] Kristin Quinn DO [address] [place] [address] 01/12/2024 1:00 PM EDT - 01/12/2024 1:30 PM EDT Surgery ENDO [facility], Endoscopy Room [facility] [address] [place] [phone] Kristni Quinn DO [address] [place] [address] COLONOSCOPY FLEXIBLE PROXIMAL DIAGNOSTIC 02/06/2024 9:00 AM EST Office Visit Family Practice [facility] [address] [place] [address] Deonte Martinez III, MD [address] [place] [address] 03/18/2024 9:00 AM EST Office Visit Neurology [facility] [address] [place] [address] Dona Granados PA-C [address] [facility] [place] [address] 12/13/2024 8:30 AM EDT Imaging Radiology [address], [place] [address] [address] 12/21/2024 8:30 AM EDT Office Visit Urology, [facility] [address] [place] [address] Chay Kelly MD [address] [place] [address] Scheduled Procedures Name Priority Associated Diagnoses Date/Ti me COLONOSCOPY FLEXIBLE PROXIMAL DIAGNOSTIC Recall Screen for colon cancer 01/12/2024 1:00 PM EDT Health Maintenance Due Date Last Done Comments [...] Not on filedocumented as of this encounter Results * VITAMIN B12 (12/19/2023 8:39 AM EDT) Pathologist [facility] Vitamin B12 381 232 - 1,245 pg/mL 12/19/2023 12:48 PM EDT LABORATORY [facility] Blood Venous blood specimen / Unknown Venipuncture / Unknown 12/19/2023 8:39 AM EDT 12/19/2023 8:39 AM EDT Deonte Martinez III, MD LAB BLOOD ORDERABLE S LABORATORY [facility] [address] [place] [address] * LDL CHOLESTEROL (DIRECT MEASURE) (12/19/2023 8:39 AM EDT) LDL Cholesterol (Direct Measure) 53 <=129 mg/dL 12/19/2023 1:03 PM EDT LABORATORY [facility] Comment: LDL Cholesterol Reference Ranges (mg/dL): <70 Target level for high risk ASCVD patient <100 Optimal for general population 100-129 Near optimal for general population 130-159 Borderline high 160-189 High >=190 Very high Blood Venous blood specimen / Unknown Venipuncture / Unknown 12/19/2023 8:39 AM EDT 12/19/2023 8:39 AM EDT Deonte Martinez III, MD LAB BLOOD ORDERABLE S Performing Organization Address [facility] de Phone Number LABORATORY [facility] [address] [place] [address] * ALBUMIN / CREATININE RATIO, URINE (12/19/2023 8:39 AM EDT) Albumin, Random Urine <1.20 mg/dL 12/19/2023 12:58 PM EDT LABORATORY [facility] Creatinine, Random Urine 179 mg/dL 12/19/2023 12:58 PM EDT LABORATORY [facility] Albumin / Creatinine Ratio, Urine <7 <30 mg/g Creat 12/19/2023 12:58 PM EDT LABORATORY [facility] Urine Urine specimen / Unknown Non-blood Collection / Unknown 12/19/2023 8:39 AM EDT 12/19/2023 8:39 AM EDT Narrative LABORATORY [facility] - 12/19/2023 12:58 PM EDT Normal: <30 mg/g creatinine High: 30-300 mg/g creatinine Very High: >300 mg/g creatinine Nephrotic: >2200 mg/g creatinine Deonte Martinez III, MD LAB URINE ORDERABLE S Performing Organization Address [facility] de Phone Number LABORATORY [facility] [address] [place] [address] * (ABNORMAL) HEMOGLOBIN A1C (12/19/2023 8:39 AM EDT) Hemoglobin A1C 5.9(H) 4.0 - 5.6 % 12/19/2023 1:00 PM EDT LABORATORY [facility] Comment:The use of HbA1c to monitor glycemic status is based on normal hemoglobin and HbA composition. This test should not be used in patients with abnormal hemoglobin that affects the half life of the red blood cell or the in vivo glycation rates. Estimated Average Glucose 123 <126 mg/dL 12/19/2023 1:00 PM EDT LABORATORY [facility] Blood Venous blood specimen / Unknown Venipuncture / Unknown 12/19/2023 8:39 AM EDT 12/19/2023 8:39 AM EDT Deonte Martinez III, MD LAB BLOOD ORDERABLE S Performing Organization Address City/State/[facility] de Phone Number LABORATORY [facility] [address] [place] [address] documented in this encounter Visit Diagnoses Diagnosis HTN, goal below 140/90- Primary Unspecified essential hypertension Diabetes mellitus without complication (HCC) Type II or unspecified type diabetes mellitus without mention of complication, not stated as uncontrolled Dyslipidemia, goal LDL below 100 Other and unspecified hyperlipidemia Encounter for long-term (current) use of medications Encounter for long-term (current) use of other medications Need for prophylactic vaccination and inoculation against influenza Need for shingles vaccine Need for prophylactic vaccination and inoculation against other viral diseases Screen for colon cancer Special screening for malignant neoplasms, colon documented in this encounter Care Teams Director Of Claims Relationship Specialty Start Date End Date Deonte Martinez III, MD [address] [place] [address] PCP - General 01/26/01 documented as of this encounter
--- OUTSIDE RECORDS SUMMARY | 2024-02-10 12:40 | External Medical Summary | Summary of Care ---
Author Name Unknown Organization [facility] Address [address] [place] [address] Phone [phone] Care Team Providers Care Monotype Setter Name Role Phone Michelle GUPTA MD, Deonte Mays Primary Care Provider Reason for Visit * Reason Comments Outpatient Testing Encounter Details Date Type Department Care Team (Late st Contact Info) Description 01/07/2024 8:30 AM EDT Laboratory Laboratory, [place] [address] [place] [phone] [place], Laboratory [address] [place] [address] Encounter for long-term (current) use of medications Allergies Active Allergy Reactions Criticality Noted Date Comments Penicillins Unknown 04/18/2000 documented as of this encounter (statuses as of 01/07/2024) Medications Medication Sig Dispensed Refills Start Date End Date Status PAXIL 30 MG PO TABSIndications:Anxi ety state,Panic disorder bid 34 5 07/26/2008 Active KLONOPIN 1 MG PO TABSIndications:take s at 12 noon and 5:00 pm Take 1 Tablet by mouth in the morning and 1 Tablet before bedtime. 68 Tab 5 03/06/2011 Active VITAMIN D 1000 UNITS PO CAPSIndications:Dysl ipidemia, goal to be determined TAKE 2 CAPSULES BY MOUTH DAILY FOR VITAMIN-D DEFICIENCY. 60 Cap 5 02/23/2014 Active Additional Information Patient taking differently: 2,000 UnitsOralDaily(AM), Reported on 03/14/2022 benztropine (COGENTIN) 1 MG Tablet Take 1 Tablet by mouth in the morning and 1 Tablet before bedtime. Active Multiple Vitamin (DAILY-PITER) TABS daily. 0 03/03/2017 Active AquaBlingTouch UltraSoft Lancets Use as directed daily as needed for Dizziness. Test daily as needed 50 Each 5 05/12/2020 Active cloZAPine 200 MG Oral Tablet Take 1 Tablet by mouth every night at bedtime. Active guaiFENesin-DM 100-10 MG/5ML Oral Syrup (Robitussin DM) Take 5 mL by mouth 3 times a day as needed for Cough. 120 mL 01/22/2022 Active Polyethylene Glycol 3350 17 GM/SCOOP Oral Powder (Miralax)Indications :Other constipation Take 8.5 g by mouth in the morning. 714 g 5 01/29/2022 Active Lidocaine 4 % External Patch Place 1 Patch topically on the skin daily. Active [employer] Verio w/Device Kit Use 1 time daily as needed E11.9 1 Kit 04/22/2022 Active [employer] Verio In Vitro Strip (Glucose Blood) Testing one time daily as needed for symptoms E11.9 100 Strip 11 04/29/2022 Active Topiramate 50 MG Oral Tablet (topAMAX) TAKE ONE TAB BY MOUTH TWICE DAILY *SEIZURES* 56 Tablet 11 05/08/2023 Active Acetaminophen ER 650 MG Oral Tablet Extended Release (Tylenol 8 Hour Arthritis Pain) 1-2 tablets every 8 hours as needed 100 Tablet 3 07/02/2023 Active Tamsulosin HCl 0.4 MG Oral Capsule (Flomax) TAKE ONE CAPSULE BY MOUTH ONCE DAILY TO STRENGTHEN URINARY STREAM 28 Capsule 4 08/27/2023 Active metFORMIN HCl 1000 MG Oral Tablet (Glucophage) TAKE ONE TABLET BY MOUTH TWICE DAILY *DM* 56 Tablet 4 08/27/2023 Active Lisinopril 20 MG Oral Tablet (Prinivil) TAKE ONE TABLET BY MOUTH DAILY *HTN* 28 Tablet 5 09/23/2023 Active Meloxicam 15 MG Oral Tablet (Mobic)Indications:C hronic bilateral low back pain with right-sided sciatica,Lumbar degenerative disc disease,Facet arthropathy, lumbar TAKE 1 TABLET BY MOUTH ONCE DAILY FOR PAIN, NO OTHER NSAIDS WHILE ON MED, MAY TAKE TYLENOL NEEDED 28 Tablet 5 09/23/2023 Active Levothyroxine Sodium 25 MCG Oral Tablet (Levoxyl) TAKE ONE TABLET BY MOUTH DAILY *HYPOTHYROIDISM* 30 Tablet 4 10/16/2023 Active Atorvastatin Calcium 40 MG Oral Tablet (Lipitor) TAKE 1 TABLET BY MOUTH DAILY AT BEDTIME (CHOLESTEROL) 28 Tablet 11 12/20/2023 Active Zoster Vac Recomb Adjuvanted 50 MCG/0.5ML Intramuscular Suspension Reconstituted (Shingrix) Inject 0.5 mL into a large muscle now and repeat dose in 60 to 180 days 1 Each 1 12/19/2023 Active documented as of this encounter (statuses as of 01/07/2024) Active Problems Problem Noted Date Diagnosed Date [...] as of this encounter (statuses as of 01/07/2024) Resolved Problems Problem Noted Date Diagnosed Date [...] as of this encounter (statuses as of 01/07/2024) Immunizations Name Administration Dates Next Due COVID-19 mRNA, LNP-s, No Pre serve, 2-Dose Series ([employer]) 01/09/2021,04/27/2020,04/06/2020 H1N1 2009 Influenza, IM 01/29/2009 Hepatitis B, 20+ yrs 05/21/2011 PPD 11/09/2013,05/21/2011 Pneumococcal Conjugate Vacci ne, 20-valent ([id number]) 05/09/2022 Pneumococcal Polysaccharide PPV23 (Pneumovax) 12/18/2017 Seasonal [...] 9:00 AM EST Office Visit Family Practice [facility] [address] [facility] [place] [address] eDonte Martinez III, MD [address] [facility] [place] [address] 03/18/2024 9:00 AM EST Office Visit Neurology [facility] [address] [facility] [place] [address] Dona Granados PA-C [address] [place] [address] 12/13/2024 8:30 AM EDT Imaging Radiology [facility] [address] [facility] [address] [facility] [place] [address] 12/21/2024 8:30 AM EDT Office Visit Urology, [facility] [address] [facility] [place] [address] Chay Kelly MD [address] [place] [address] Pending Results Name Type Priority Associated Diagnoses Date /Time CBC WITH WBC DIFFERENTIAL Lab Routine Encounter for long-term (current) use of medications 01/07/2024 7:50 AM EDT CBC Lab Routine Encounter for long-term (current) use of medications 01/07/2024 7:50 AM EDT DIFFERENTIAL, AUTOMATED Lab Routine Encounter for long-term (current) use of medications 01/07/2024 7:50 AM EDT Health Maintenance Due Date Last Done [...] medications documented in this encounter Care Teams Monotype Setter Relationship Specialty Start Date End Date Deonte Martinez III, MD [address] [place] [address] PCP - General 01/26/01 documented as of this encounter
--- OUTSIDE RECORDS SUMMARY | 2024-02-10 12:40 | External Medical Summary | Summary of Care ---
Author Name Unknown Organization [facility] Address [address] [place] [address] Phone [phone] Care Team Providers Care Prison Psychiatrist Name Role Phone Michelle GUPTA MD, Nikita Mays Primary Care Provider [phone] Reason for Referral * Precert (Within 10 days (routine)) - Authorized Specialty Diagnoses / Procedures Referred By Maryana aguirre Referred To Contact Radiology Diagnoses History of kidney stones Procedures CT ABD/PELVIS WO IV/ORAL CONTRAST Chay Kelly MD [address] [address] Referral ID Status Reason Start Date Expiration Date V isits Requested Visits Authorized [id number] Authorized 12/13/2024 999 999 Reason for Visit * Reason Comments Follow Up Encounter Details Date Type Department Care Team (Late st Contact Info) Description 12/17/2023 10:15 AM EDT Office Visit Urology, [facility] [address] [facility] [place] [address] Chay Kelly MD [address] [address] BPH with obstruction/lower urinary tract symptoms*; History of kidney stones Allergies Active Allergy Reactions Criticality Noted Date Comments Penicillins Unknown 04/18/2000 documented as of this encounter (statuses as of 12/17/2023) Medications Medication Sig Dispensed Refills Start Date End Date Status PAXIL 30 MG PO TABSIndications:Anx iety state,Panic disorder bid 34 5 07/26/2008 Active KLONOPIN 1 MG PO TABSIndications:jan es at 12 noon and 5:00 pm Take 1 Tablet by mouth in the morning and 1 Tablet before bedtime. 68 Tab 5 03/06/2011 Active VITAMIN D 1000 UNITS PO CAPSIndications:Dys lipidemia, goal to be determined TAKE 2 CAPSULES BY MOUTH DAILY FOR VITAMIN-D DEFICIENCY. 60 Cap 5 02/23/2014 Active Additional Information Patient taking differently: 2,000 UnitsOralDaily(AM), Reported on 03/14/2022 benztropine (COGENTIN) 1 MG Tablet Take 1 Tablet by mouth in the morning and 1 Tablet before bedtime. Active Multiple Vitamin (DAILY-PITER) TABS daily. 0 03/03/2017 Active SupplyFrameTouch UltraSoft Lancets Use as directed daily as needed for Dizziness. Test daily as needed 50 Each 5 05/12/2020 Active cloZAPine 200 MG Oral Tablet Take 1 Tablet by mouth every night at bedtime. Active guaiFENesin-DM 100-10 MG/5ML Oral Syrup (Robitussin DM) Take 5 mL by mouth 3 times a day as needed for Cough. 120 mL 01/22/2022 Active Additional Information Patient not taking.Reported on 06/19/2023 Polyethylene Glycol 3350 17 GM/SCOOP Oral Powder (Miralax)Indication s:Other constipation Take 8.5 g by mouth in the morning. 714 g 5 01/29/2022 Active Anoro Ellipta 62.5-25 MCG/INH Inhalation Aerosol Powder Breath Activated (umeclidinium-vilan terol) Inhale 1 Puff by mouth in the morning. 30 Each 11 02/09/2022 Active Additional Information Patient not taking.Reported on 06/19/2023 Lidocaine 4 % External Patch Place 1 Patch topically on the skin daily. Active SupplyFrameTouch Verio w/Device Kit Use 1 time daily as needed E11.9 1 Kit 04/22/2022 Active SupplyFrameTouch Verio In Vitro Strip (Glucose Blood) Testing one time daily as needed for symptoms E11.9 100 Strip 11 04/29/2022 Active Ventolin HFA 108 (90 Base) MCG/ACT Inhalation Aerosol SolutionIndications :Chronic obstructive pulmonary disease, unspecified COPD type (HCC) USE 2 PUFFS EVERY 6 HOURS NEEDED FOR WHEEZING. 18 g 4 10/06/2022 Active Additional Information Patient not taking.Reported on 06/19/2023 Topiramate 50 MG Oral Tablet (topAMAX) TAKE ONE TAB BY MOUTH TWICE DAILY *SEIZURES* 56 Tablet 11 05/08/2023 Active Atorvastatin Calcium 40 MG Oral Tablet (Lipitor) TAKE 1 TABLET BY MOUTH DAILY AT BEDTIME (CHOLESTEROL) 90 Tablet 1 07/02/2023 Active Acetaminophen ER 650 MG Oral Tablet [...] 09/23/2023 Active Meloxicam 15 MG Oral Tablet (Mobic)Indications: Chronic bilateral low back pain with right-sided sciatica,Lumbar degenerative disc disease,Facet arthropathy, lumbar TAKE 1 TABLET BY MOUTH ONCE DAILY FOR PAIN, NO OTHER NSAIDS WHILE ON MED, MAY TAKE TYLENOL NEEDED 28 Tablet 5 09/23/2023 Active Levothyroxine Sodium 25 MCG Oral Tablet (Levoxyl) TAKE ONE TABLET BY MOUTH DAILY *HYPOTHYROIDISM* 30 Tablet 4 10/16/2023 Active documented as of this encounter (statuses as of 12/17/2023) Active Problems Problem Noted Date Diagnosed Date [...] as of this encounter (statuses as of 12/17/2023) Resolved Problems Problem Noted Date Diagnosed Date [...] as of this encounter (statuses as of 12/17/2023) Immunizations Name Administration Dates Next Due COVID-19 mRNA, LNP-s, No Pre serve, 2-Dose Series ([employer]world) 01/09/2021,04/27/2020,04/06/2020 H1N1 2009 Influenza, IM 01/29/2009 Hepatitis B, 20+ yrs 05/21/2011 PPD 11/09/2013,05/21/2011 Pneumococcal Conjugate Vacci ne, 20-valent ([id number]) 05/09/2022 Pneumococcal Polysaccharide PPV23 (Pneumovax) 12/18/2017 Seasonal Influenza Vac., MDV , IM, 0.5 mL (Fluzone) 11/11/2013,01/11/2013,05/14/2012,01/07,02/12/2010,01/11/2009 Seasonal Influenza, PF, 6 M & above, IM , (FluLaval or Fluzone) 12/16/2022,11/30/2020,01/03/2020,12/18,12/18/2017,02/27/2017 Seasonal Influenza, Quadriva lent, No Preserve, IM 04/12/2016,04/12/2015 TDAP, Age 7 and older, IM (Adacel) 02/12/2021, documented as of this encounter Social History [...] on file documented as of this encounter Progress Notes * Chay Kelly MD - 12/17/2023 10:15 AM EDT [id number] PCP: [place] [address] [phone] Neftaly Rich is a 68 year old male, who presents for six-month follow-up of his history of BPH and stone disease. Patient's initial visit with myself in May of 2023 is appreciated. KUB images from today are personally reviewed with the patient. Excellent, stable PSA value is noted. He remains an assisted living resident, paperwork reviewed Urolithiasis: Patient is being seen for stone disease today. Problem has been present for years.. They have had one stone before. and They have passed all their previous stones without the need for surgery. Severity is mild .Previous evaluation includes KUB. Problem is about the same. In the past they have had no surgery for stone to manage their stones. Stone composition is unknown. BPH: Patient is being seen for BPH today. He has had the following symptoms: slow stream and nocturia. Severity is mild. He has tried tamsulosin. He has previously had no surgery done. Problem has been present for years. Problem is about the same. PSA Results: Lab Results Component Value Date/Time PSA - [facility] 0.34 12/15/2023 09:07 AM PSA - [facility] 0.34 2023 08:30 AM PSA SCREENING 0.44 05/25/2013 07:59 AM PSA SCREENING 0.86 05/18/2012 08:51 AM PSA SCREENING 0.31 05/21/2011 08:45 AM Current Outpatient Medications Medication Sig Dispense Refill [...] times a day as needed for Cough. (Patient not taking: Reported on 06/19/2023) 120 mL 0 Polyethylene Glycol 3350 17 GM/SCOOP Oral Powder (Miralax) Take 8.5 g by mouth in the morning. 714 g 5 Anoro Ellipta 62.5-25 MCG/INH Inhalation Aerosol Powder Breath Activated (umeclidinium-vilanterol) Inhale 1 Puff by mouth in the morning. (Patient not taking: Reported on 06/19/2023) 30 Each 11 Lidocaine 4 % External Patch Place 1 Patch topically on the skin daily. (Patient not taking: Reported on 06/19/2023) SupplyFrameTouch Verio w/Device Kit Use 1 time daily as needed E11.9 1 Kit 0 OneTouch Verio In Vitro Strip (Glucose Blood) Testing one time daily as needed for symptoms E11.9 100 Strip 11 Ventolin HFA 108 (90 Base) MCG/ACT Inhalation Aerosol Solution USE 2 PUFFS EVERY 6 HOURS NEEDED FOR WHEEZING. (Patient not taking: Reported on 06/19/2023) 18 g 4 Topiramate 50 MG Oral Tablet (topAMAX) TAKE [...] BY MOUTH DAILY *HYPOTHYROIDISM* 30 Tablet 4 No current facility-administered medications for this visit. Review of patient's allergies indicates: Allergen Reactions Penicillins Unknown Social History: Social History Tobacco Use Smoking status: Never Smokeless tobacco: Current Types: Chew Tobacco comments: 3/4 can of chewing tobacco per day Substance Use Topics Alcohol use: No Vaping/E-Cigarette Use Vaping/E-Cigarette Use Never User Vaping/E-Cigarette Substances Nicotine No Other No Flavoring No THC No Cannabidiol (CBD) No Vaping/E-Cigarette Devices Disposable No Pre-filled or Refillable Cartridge No Refillable Tank No Pre-filled Pod No Family History Problem Relation Name Age of Onset Heart Disorder Brother Heart Disorder Aunt (Unspecified) BYPASS Cancer Aunt (Unspecified) EYE @90 Cancer Grandmother (Maternal) LUNG Heart Disorder Father bypass Past Surgical History: Procedure Laterality Date COLONOSCOPY, DIAGNOSTIC (RECTUM) 07/26/2020 poor prep, repeat / COLONOSCOPY FLEXIBLE PROXIMAL DIAGNOSTIC performed by Chris Power [facility] COLONOSCOPY, DIAGNOSTIC (RECTUM) 09/13/2020 poor prep, repeat 1 yr / COLONOSCOPY FLEXIBLE PROXIMAL DIAGNOSTIC performed by Chris Power MD at ENDOSCOPY [facility] CYSTOSCOPY 06/02/[address] Duarte in office EGD, FLEXIBLE, DIAGNOSTIC 01/07/2019 Z line,valve flap-ESOPHAGOGASTRODUODENOSCOPY (EGD), FLEXIBLE, TRANSORAL, DIAGNOSTIC performed by Ami Silverio MD at ENDOSCOPY [facility] REMOVAL OF TONSILS, UNDER AGE 12 Tonsils Removal,<12 Y/O Past Medical History: Diagnosis Date Dyslipidemia, goal LDL below 160 HTN, goal below 140/90 Obesity, BMI not known Schizophrenia (HCC) Patient Active Problem List Diagnosis PARANOID SCHIZO-CHRONIC Dyslipidemia, goal LDL below 100 Panic disorder Anxiety state HTN, goal below 140/90 ADVANCE DIRECTIVE INFORMATION Encounter for long-term (current) use of medications Post-void dribbling Seizure-like activity (HCC) Diabetes mellitus without complication (HCC) Morbid obesity due to excess calories (HCC) Chronic obstructive pulmonary disease (HCC) Absence seizure (HCC) Constitutional: (-) fever and (-) chills Male : see HPI Musculoskeletal: (+) back pain/problems Neurology: (+) loss of balance Psychiatry: (+) schizophrenia Physical Exam Nursing note reviewed. Constitutional: General: He is not in acute distress. Appearance: He is obese. He is not toxic-appearing. Comments: Using walker HENT: Head: Normocephalic. Right Ear: External ear normal. Left Ear: External ear normal. Nose: Nose normal. Mouth/Throat: Mouth: Mucous membranes are moist. Eyes: Extraocular Movements: Extraocular movements intact. Cardiovascular: Pulses: Normal pulses. Pulmonary: Effort: Pulmonary effort is normal. No respiratory distress. Abdominal: General: Abdomen is protuberant. Palpations: Abdomen is soft. Neurological: Motor: Weakness present. Gait: Gait abnormal. Impression/Plan: 68-year-old male with a history of stone disease and BPH. Patient is satisfied with his voiding on monotherapy with tamsulosin. No large, clear stones on thepatient's imaging today, but this is limited by bowel gas and contents. Will plan on 1 year follow-up with a repeat PSA value and plan on CT imaging at that time for more accurate stone survey. Worrisome signs and symptoms reviewed, patient can contact us sooner with any significant clinical deterioration. Patient vocalizes good understanding of the treatment plan. Above content is personally reviewed. Chay Kelly MD 8:00 AM 12/17/2023 documented in this encounter Nursing Notes * Jessenia Chang LPN - 12/17/2023 9:31 AM EDT 6 month ret BPH Tamsulosin KUB completed PSA Results: Lab Results Component Value Date/Time PSA - [facility] 0.34 12/15/2023 09:07 AM PSA - [facility] 0.34 2023 08:30 AM PSA SCREENING 0.44 05/25/2013 07:59 AM PSA SCREENING 0.86 05/18/2012 08:51 AM PSA SCREENING 0.31 05/21/2011 08:45 AM No concerns documented in this encounter Plan of Treatment Upcoming Encounters Date Type Department Care Team (Late st Contact Info) Description 12/19/2023 8:00 AM EDT Office Visit Family Practice [facility] [address] [facility] [place] [address] Nikita Esteban III, MD [address] [facility] [address] 01/07/2024 8:30 AM EDT Laboratory [facility], [place] [address] [facility] [phone] [place], Laboratory [address] [place] [facility] [place] [address] 01/12/2024 1:00 PM EDT Hospital Encounter [facility], Endoscopy Room [facility] [address] [place] [phone] Kristin Quinn DO [address] [place] [address] 01/12/2024 1:00 PM EDT - 01/12/2024 1:30 PM EDT Surgery ENDO [facility], Endoscopy Room [facility] [address] [place] [phone] Kristin Quinn DO 132 [facility] [place] [address] COLONOSCOPY FLEXIBLE PROXIMAL DIAGNOSTIC 02/06/2024 9:00 AM EST Office Visit Family Practice [facility] [address] [place] [address] Nikita Esteban III, MD [address] [facility] [place] [address] 03/18/2024 9:00 AM EST Office Visit Neurology [facility] [address] [place] [address] Dona Granados PA-C [address] [facility] [place] [address] 12/13/2024 8:30 AM EDT Imaging Radiology [facility] [address] [facility] [place] [address] 12/21/2024 8:30 AM EDT Office Visit Urology, [facility] [address] [facility] [place] [address] Chay Kelly MD [address] [place] [address] Scheduled Orders Name Type Priority Associated Diagnoses Orde r Schedule PSA Lab Routine BPH with obstruction/lower urinary tract symptoms Expected: 12/13/2024, Expires: 12/16/2024 CT ABD/PELVIS WO IV/ORAL CONTRAST Medical Imaging Routine History of kidney stones Expected: 12/13/2024, Expires: 01/16/2025 Scheduled Procedures Name Priority Associated Diagnoses Date/Ti me COLONOSCOPY FLEXIBLE PROXIMAL DIAGNOSTIC Recall Screen for colon cancer 01/12/2024 1:00 PM EDT Health Maintenance Due Date Last Done Comments Alpha-1 Antitrypsin 06/12/1975 Cologuard 2002 Fecal Occult Blood Test 2002 Sigmoidoscopy 2002 Zoster Vaccines (1 of 2) 06/12/2007 Depression Screening 05/29/2021 05/29/2020, 10/29/2017 (Discussed) Adult Wellness Visit 06/12/2023 Albumin/Creatinine Ratio 10/17/2023 023, 08/08/2021, 06/30/2018, Additional history exists COVID-19 Vaccine ( season) 2023 01/09/2021, 04/27/2020, 04/06/2020 Influenza Vaccine (FLU shot) (#1) 2023 12/16/2022, 11/30/2020, 01/03/2020, Additional history exists HbA1c 12/19/2023 06/19/2023, 12/16, 05/22/2022, Additional history exists B-12 01/09/2024 01/08/2023, 07/17, 07/25/2021, Additional history exists Diabetic Foot Exam 02/05/2024 02/04/2023, 1 , 10/27/2018, Additional history exists GFR 06/18/2024 06/19/2023, 0310/2022, 07/25/2021, Additional history exists O2 ASSESSMENT COMPLETED IN PAST YEAR FOR COPD 06/18/2024 06/19/2023 TSH 06/18/2024 06/19/2023, 12/16, 02/20/2022, Additional history exists Diabetic Eye Exam 11/03/2024 11/04/2023, , 01/29/2022 (Done elsewhere), Additional history exists Lipid Panel 01/09/2028 01/08/2023, 020 10/2022, 02/14/2021, Additional history exists Colonoscopy 09/13/2030 09/13/2020, 08/17, 07/26/2020, Additional history exists Colorectal Cancer Screening 09/13/2030 DTap/Tdap Vaccines (3 - Td or Tdap) 02/12/2031 02/12/2021, 05/29/2010, 05/13/2000 Hepatitis B Vaccine Completed 05/21/2011, 12/02/2001, 10/21/2001 Pneumococcal Vaccine: 65+ Years Completed 05/09/2022, 12/18/2017 HPV (Gardasil) Vaccine Aged Out No lo nger eligible based on patient's age to complete this topic MENINGOCOCCAL (MENACTRA/MENVEO) Aged Out No longer eligible based on patient's age to complete this topic documented as of this encounter Medical Devices Not on filedocumented as of this encounter Visit Diagnoses Diagnosis BPH with obstruction/lower urinary tract symptoms- Primary Hypertrophy of prostate with urinary obstruction and other lower urinary tract symptoms (LUTS) History of kidney stones Personal history of urinary calculi Screen for colon cancer Special screening for malignant neoplasms, colon documented in this encounter Care Teams Prison Psychiatrist Relationship Specialty Start Date End Date Nikita Esteban III, MD [address] [place] [address] PCP - General 01/26/01 documented as of this encounter
--- OUTSIDE RECORDS SUMMARY | 2024-02-10 12:40 | External Medical Summary | Summary of Care ---
Author Name Unknown Organization [facility] Address [address] [place] [address] Phone [phone] Care Team Providers Care Barrel Lathe Operator Inside Name Role Phone Michelle GUPTA MD, Deonte Mays Primary Care Provider [phone] Reason for Visit * Reason Comments Outpatient Testing Encounter Details Date Type Department Care Team (Late st Contact Info) Description 12/19/2023 8:40 AM EDT Laboratory Laboratory [facility] [address] [place] [address] [place] [phone] [place], Lab [address] [place] [address] Diabetes mellitus without complication (HCC); HTN, goal below 140/90; Dyslipidemia, goal LDL below 100; Encounter for long-term (current) use of medications Allergies Active Allergy Reactions Criticality Noted Date Comments Penicillins Unknown 04/18/2000 documented as of this encounter (statuses as of 12/19/2023) Medications Medication Sig Dispensed Refills Start Date [...] Vitamin (DAILY-PITER) TABS daily. 0 03/03/2017 Active Halo BeveragesTouch UltraSoft Lancets Use as directed daily as [...] Patch topically on the skin daily. Active ChangeAgain[employer]Me Verio w/Device Kit Use 1 time daily as needed E11.9 1 Kit 04/22/2022 Active [employer] Verio In Vitro Strip (Glucose Blood) Testing [...] DAILY *HYPOTHYROIDISM* 30 Tablet 4 10/16/2023 Active Zoster Vac Recomb Adjuvanted 50 MCG/0.5ML Intramuscular Suspension Reconstituted (Shingrix) Inject 0.5 mL into a large muscle now and repeat dose in 60 to 180 days 1 Each 1 12/19/2023 Active documented as of this encounter (statuses as of 12/19/2023) Active Problems Problem Noted Date Diagnosed Date [...] as of this encounter (statuses as of 12/19/2023) Resolved Problems Problem Noted Date Diagnosed Date [...] as of this encounter (statuses as of 12/19/2023) Immunizations Name Administration Dates Next Due COVID-19 mRNA, LNP-s, No Pre serve, 2-Dose Series (Pfizer) 01/09/2021,04/27/2020,04/06/2020 H1N1 2009 Influenza, IM 01/29/2009 Hepatitis B, 20+ yrs 05/21/2011 PPD 11/09/2013,05/21/2011 Pneumococcal Conjugate Vacci ne, 20-valent ([id number]) 05/09/2022 Pneumococcal Polysaccharide PPV23 (Pneumovax) 12/18/2017 Seasonal [...] Description 01/07/2024 8:30 AM EDT Laboratory [facility] [place] [address] [facility] [phone] [facility] [address] [facility] [place] [address] 01/12/2024 1:00 PM EDT Hospital Encounter ENDO [facility], Endoscopy Room [facility] [address] [place] [phone] Kristin Quinn DO [address] [place] [address] 01/12/2024 1:00 PM EDT - 01/12/2024 1:30 PM EDT Surgery ENDO [facility], Endoscopy Room [facility] [address] [place] [phone] Kristin Quinn DO [address] [place] [address] COLONOSCOPY FLEXIBLE PROXIMAL DIAGNOSTIC 02/06/2024 9:00 AM EST Office Visit Family Practice [facility] [place] [address] [place] [address] Deonte Martinez III, MD [address] [place] [address] 03/18/2024 9:00 AM EST Office Visit Neurology [facility] [place] [address] [place] [address] Dona Granados PA-C [address] [place] [address] 12/13/2024 8:30 AM EDT Imaging Radiology [facility] [address] [facility] [place] [address] 12/21/2024 8:30 AM EDT Office Visit Urology, [facility] [address] [facility] [place] [address] Chay Kelly MD [address] [phone] Pending Results Name Type Priority Associated Diagnoses Date /Time HEMOGLOBIN A1C Lab Routine Diabetes mellitus without complication (HCC) 12/19/2023 8:39 AM EDT ALBUMIN / CREATININE RATIO, URINE Lab Routine Diabetes mellitus without complication (HCC) 12/19/2023 8:39 AM EDT LDL CHOLESTEROL (DIRECT MEASURE) Lab Routine Diabetes mellitus without complication (HCC) HTN, goal below 140/90 Dyslipidemia, goal LDL below 100 12/19/2023 8:39 AM EDT VITAMIN B12 Lab Routine Encounter for long-term (current) use of medications 12/19/2023 8:39 AM EDT Scheduled Procedures Name Priority Associated Diagnoses Date/Ti [...] Vaccine ( season) 2023 01/09/2021, 04/27/2020, 04/06/2020 HbA1c 12/19/2023 06/19/2023, 12/16, 05/22/2022, Additional history exists B-12 01/09/2024 01/08/2023, 07/17, 07/25/2021, Additional history exists Diabetic Foot Exam 02/05/2024 02/04/2023, 1 , 10/27/2018, Additional history exists GFR 06/18/2024 06/19/2023, 030 10/2022, 07/25/2021, Additional history exists TSH 06/18/2024 06/19/2023, 12/16, 02/20/2022, Additional history exists Diabetic Eye Exam 11/03/2024 11/04/2023, , 01/29/2022 (Done elsewhere), Additional history exists O2 ASSESSMENT COMPLETED IN PAST YEAR FOR COPD 12/18/2024 12/19/2023 Lipid Panel 01/09/2028 01/08/2023, 020 10/2022, 02/14/2021, [...] as of this encounter Visit Diagnoses Diagnosis Diabetes mellitus without complication (HCC) Type II or unspecified type diabetes mellitus without mention of complication, not stated as uncontrolled HTN, goal below 140/90 Unspecified essential hypertension Dyslipidemia, goal LDL below 100 Other and unspecified hyperlipidemia Encounter for long-term (current) use of medications Encounter for long-term (current) use of other medications Screen for colon cancer Special screening for malignant neoplasms, colon documented in this encounter Care Teams Barrel Lathe Operator Inside Relationship Specialty Start Date End Date Deonte Martinez III, MD [address] [place] [address] PCP - General 01/26/01 documented as of this encounter
--- OUTSIDE RECORDS SUMMARY | 2024-02-10 12:40 | External Medical Summary ---
Author Name Unknown Address Unknown Organization [id number]:[facility]ATORY [facility] [place] - [address] [place] [address] Laboratory Report Ordering Provider Test Date Status CARLITO SHELTON III 12/19/2023 08:39:33 Final Observation Date Value Abnormality Reference (Units ) Status Vitamin B12 12/19/2023 08:39:33 [phone] (pg/mL) Final Performing Location LABORATORY [facility] - [address] [place] [address]
--- OUTSIDE RECORDS SUMMARY | 2024-02-10 12:40 | External Medical Summary ---
Author Name Unknown Address Unknown Organization [id number]:[facility]ORY [facility] [place] [address] [facility] [address] Laboratory Report Ordering Provider Test Date Status CARLITO SHELTON III 12/19/2023 08:39:33 Final Observation Date Value Abnormality Reference (Units ) Status HbA1C 12/19/2023 08:39:33 5.9 Above high normal 4. 0-5.6 (%) Final The use of HbA1c to monitor glycemic status is based on normal hemoglobin and HbA composition. This test should not be used in patients with abnormal hemoglobin that affects the half life of the red blood cell or the in vivo glycation rates. Glucose, estimated average 12/19/2023 08:39:33 123 <126 (mg/dL) Final Performing Location LABORATORY [facility] [place] - [address] [facility] [address]
--- OUTSIDE RECORDS SUMMARY | 2024-02-10 12:40 | External Medical Summary | Summary of Care ---
Author Name Unknown Organization [facility] Address [address] [place] [address] Phone [phone] Care Team Providers Care Tour Manager Name Role Phone Michelle GUPTA MD, Deonte Mays Primary Care Provider [phone] Encounter Details Date Type Department Care Team (Late st Contact Info) Description 12/17/2023 Telephone Urology, [facility] [address] [facility] [place] [address] Chay Kelly MD [address] [facility] [place] [address] Allergies Active Allergy Reactions Criticality Noted Date [...] Vitamin (DAILY-PITER) TABS daily. 0 03/03/2017 Active OneTouch UltraSoft Lancets Use as directed [...] Patch topically on the skin daily. Active Lumi MobileTo365webcall Verio w/Device Kit Use 1 time daily as needed E11.9 1 Kit 04/22/2022 Active Lumi MobileTouch Verio In Vitro Strip (Glucose Blood) Testing [...] mRNA, LNP-s, No Pre serve, 2-Dose Series (Moove In) 01/09/2021,04/27/2020,04/06/2020 H1N1 2009 Influenza, IM 01/29/2009 Hepatitis B, 20+ yrs 05/21/2011 PPD 11/09/2013,05/21/2011 Pneumococcal Conjugate Vacci ne, 20-valent ([id number]) 05/09/2022 Pneumococcal Polysaccharide PPV23 (Pneumovax) 12/18/2017 Seasonal [...] 12/17/2023 10:15 AM EDT Office Visit Urology, [facility] [address] [place] [address] Chay Kelly MD [address] [place] [address] 12/19/2023 8:00 AM EDT Office Visit Family Practice [facility] [address] [place] [address] Deonte Martinez III, MD [address] [place] [address] 01/07/2024 8:30 AM EDT Laboratory Laboratory, [place] [address] [place] [phone] [place] [address] [place] [address] 01/12/2024 1:00 PM EDT Hospital Encounter ENDO [facility], Endoscopy Room [facility] [address] [place] [phone] Kristin Quinn DO [address] [place] [place] [address] 01/12/2024 1:00 PM EDT - 01/12/2024 1:30 PM EDT Surgery ENDO [facility], Endoscopy Room [facility] [address] [place] [phone] Kristin Quinn DO [address] [place] [address] COLONOSCOPY FLEXIBLE PROXIMAL DIAGNOSTIC 02/06/2024 9:00 AM EST Office Visit Family Practice [facility] [address] [facility] [place] [address] Deonte Martinez III, MD [address] [facility] [place] [address] 03/18/2024 9:00 AM EST Office Visit Neurology [facility] [address] [place] [address] Dona Granados PA-C [address] [place] [address] Pending Results Name Type Priority Associated Diagnoses Date /Time XR ABDOMEN 1 VIEW Medical Imaging Routine BPH with obstruction/lower urinary tract symptoms History of kidney stones 12/17/2023 8:58 AM EDT Scheduled Procedures Name Priority Associated [...] 06/19/2023, 030 10/2022, 07/25/2021, Additional history exists O2 ASSESSMENT COMPLETED [...] colon documented in this encounter Care Teams Tour Manager Relationship Specialty Start Date End Date Deonte Martinez III, MD [address] [place] [address] PCP - General 01/26/01 documented as of this encounter
--- OUTSIDE RECORDS SUMMARY | 2024-02-10 12:40 | External Medical Summary | Summary of Care ---
Author Name Unknown Organization [facility] Address [address] [place] [address] Phone [phone] Care Team Providers Care Clinical Project Coordinator Name Role Phone Michelle GUPTA MD, Nikita Mays Primary Care Provider [phone] Reason for Visit * Reason Comments eRx-Medication Refill Encounter Details Date Type Department Care Team ([facility] st Contact Info) Description 12/17/2023 Refill Family Practice [facility] [place] 200 [facility] [place] [address] Nikita Esteban III, MD 200 [place] [address] Allergies Active Allergy Reactions Criticality Noted Date Comments Penicillins Unknown 04/18/2000 documented as of this encounter (statuses as of 12/20/2023) Medications Medication Sig Dispensed Refills Start Date End Date Status PAXIL 30 MG PO TABSIndications:A nxiety state,Panic disorder bid 34 5 07/26/2008 Active KLONOPIN 1 MG PO TABSIndications:t akes at 12 noon and 5:00 pm Take 1 Tablet by mouth in the morning and 1 Tablet before bedtime. 68 Tab 5 03/06/2011 Active VITAMIN D 1000 UNITS PO CAPSIndications:D yslipidemia, goal to be determined TAKE 2 CAPSULES BY MOUTH DAILY FOR VITAMIN-D DEFICIENCY. 60 Cap 5 02/23/2014 Active Additional Information Patient taking differently: 2,000 UnitsOralDaily(AM), Reported on 03/14/2022 benztropine (COGENTIN) 1 MG Tablet Take 1 Tablet by mouth in the morning and 1 Tablet before bedtime. Active Multiple Vitamin (DAILY-IPTER) TABS daily. 0 03/03/2017 Active InCrowd CapitalTouch UltraSoft Lancets Use as directed daily as [...] Patch topically on the skin daily. Active DataCore Software Verio w/Device Kit Use 1 time daily as needed E11.9 1 Kit 04/22/2022 Active InCrowd CapitalToXiaoying Verio In Vitro Strip (Glucose Blood) Testing [...] 09/23/2023 Active Meloxicam 15 MG Oral Tablet (Mobic)Indication [...] BEDTIME (CHOLESTEROL) 28 Tablet 11 12/20/2023 Active Atorvastatin Calcium 40 MG Oral Tablet (Lipitor) TAKE 1 TABLET BY MOUTH DAILY AT BEDTIME (CHOLESTEROL) 90 Tablet 1 07/02/2023 12/20/19 24 Discontinued documented as of this encounter (statuses as of 12/20/2023) Active Problems Problem Noted Date Diagnosed Date [...] as of this encounter (statuses as of 12/20/2023) Resolved Problems Problem Noted Date Diagnosed Date [...] as of this encounter (statuses as of 12/20/2023) Immunizations Name Administration Dates Next Due COVID-19 mRNA, LNP-s, No Pre serve, 2-Dose Series ([employer] 01/09/2021,04/27/2020,04/06/2020 H1N1 2009 Influenza, IM 01/29/2009 Hepatitis B, 20+ yrs 05/21/2011 PPD 11/09/2013,05/21/2011 Pneumococcal Conjugate Vacci ne, 20-valent ([id number]) 05/09/2022 Pneumococcal Polysaccharide PPV23 (Pneumovax) 12/18/2017 Seasonal [...] encounter Miscellaneous Notes * Telephone Encounter - Linh Claros saeid - 12/20/2023 6:11 AM EDTSigned Prescriptions: Disp Refills Atorvastatin Calcium 40 MG Oral Tablet (Li*28 Tab*11 Sig: TAKE 1TABLET BY MOUTH DAILY AT BEDTIME (CHOLESTEROL)Authorizing Provider: NIKITA ESTEBAN III User:LINH CLAROS documented in this encounter Plan of Treatment Upcoming Encounters Date Type Department Care Team (Late st Contact Info) Description 01/07/2024 8:30 AM EDT Laboratory Laboratory, [place] [address] [place] [facility] [address] [facility] [address] [place] [facility] [place] [address] 01/12/2024 1:00 PM EDT Hospital Encounter ENDO [facility], Endoscopy Room [facility] [address] [place] [phone] Kristin Quinn DO [address] [place] [address] 01/12/2024 1:00 PM EDT - 01/12/2024 1:30 PM EDT Surgery ENDO [facility], Endoscopy Room [facility] [address] [place] [phone] Kristin Quinn DO [address] [place] [address] COLONOSCOPY FLEXIBLE PROXIMAL DIAGNOSTIC 02/06/2024 9:00 AM EST Office Visit Family Practice [facility] 200 [facility] [place] [address] Nikita Esteban III, MD 200 [facility] [place] [address] 03/18/2024 9:00 AM EST Office Visit Neurology [facility] 200 [facility] [place] [address] Dona Granados PA-C [address] [place] [address] 12/13/2024 8:30 AM EDT Imaging Radiology [facility] [facility] [address] [facility] [place] [address] 12/21/2024 8:30 AM EDT Office Visit Urology, [facility] 132 [facility] [place] [address] Chay Kelly MD [address] [place] [address] Scheduled Procedures Name Priority Associated Diagnoses Date/Ti [...] filedocumented as of this encounter Care Teams Clinical Project Coordinator Relationship Specialty Start Date End Date Michelle GUPTA, Nikita Mays MD 200 [place] [address] PCP - General 01/26/01 documented as of this encounter
--- OUTSIDE RECORDS SUMMARY | 2024-02-10 12:41 | External Medical Summary | Summary of Care ---
Author Name Unknown Organization [facility] Address [address] [place] [address] Phone [phone] Care Team Providers Care Mix House Operator Name Role Phone Michelle GUPTA MD, Deonte Mays Primary Care Provider [phone] Reason for Visit * Reason Comments Outpatient Testing Encounter Details Date Type Department Care Team (Late st Contact Info) Description 11/05/2023 8:30 AM EDT Laboratory Laboratory, [place] [address] [place] [address] [facility] [address] [place] [address] Encounter for long-term (current) use of other medications Allergies Active Allergy Reactions Criticality Noted Date Comments Penicillins Unknown 04/18/2000 documented as of this encounter (statuses as of 11/05/2023) Medications Medication Sig Dispensed Refills Start Date [...] Patch topically on the skin daily. Active Renal Treatment CentersTouch Verio w/Device Kit Use 1 time daily as needed E11.9 1 Kit 04/22/2022 Active OneTouch Verio In Vitro Strip (Glucose [...] as of this encounter (statuses as of 11/05/2023) Active Problems Problem Noted Date Diagnosed Date [...] as of this encounter (statuses as of 11/05/2023) Resolved Problems Problem Noted Date Diagnosed Date [...] as of this encounter (statuses as of 11/05/2023) Immunizations Name Administration Dates Next Due COVID-19 mRNA, LNP-s, No Pre serve, 2-Dose Series (AnaptysBio) 01/09/2021,04/27/2020,04/06/2020 H1N1 2009 Influenza, IM 01/29/2009 Hepatitis B, 20+ yrs 05/21/2011 PPD 11/09/2013,05/21/2011 Pneumococcal Conjugate Vacci ne, 20-valent ([id number]) 05/09/2022 Pneumococcal Polysaccharide PPV23 (Pneumovax) 12/18/2017 Seasonal Influenza, PF, 6 M & above, IM , (FluLaval or Fluzone) 12/16/2022,11/30/2020,01/03/2020,12/18,12/18/2017,02/27/2017 Seasonal Influenza, Quadriva lent, No Preserve, IM 04/12/2016,04/12/2015 Seasonal Influenza, Split, I IV3, With Preserve, Inj 11/11/2013,01/11/2013,05/14/2012,01/07,02/12/2010,01/11/2009 TDAP, Age 7 and older, IM (Adacel) [...] 12/17/2023 10:15 AM EDT Office Visit Urology, [facility] [address] [place] [address] Chay Kelly MD [address] [place] [address] 12/19/2023 8:00 AM EDT Office Visit Family Practice [facility] [address] [facility] [place] [address] Deonte Martinez III, MD [address] [facility] [place] [address] 01/12/2024 1:00 PM EDT Hospital Encounter ENDO [facility], Endoscopy Room [facility] [address] [place] [phone] Kristin Quinn DO [address] [place] [address] 01/12/2024 1:00 PM EDT - 01/12/2024 1:30 PM EDT Surgery ENDO [facility], Endoscopy Room [facility] [address] [place] [phone] Kristin Quinn DO [address] [place] [address] COLONOSCOPY FLEXIBLE PROXIMAL DIAGNOSTIC 02/06/2024 9:00 AM EST Office Visit Family Practice [facility] [address] [facility] [place] [address] Deonte Martinez III, MD [address] [facility] [place] [address] 03/18/2024 9:00 AM EST Office Visit Neurology [facility] [address] [place] [address] Dona Granados PA-C [address] [place] [address] Pending Results Name Type Priority Associated Diagnoses Date /Time CBC WITH WBC DIFFERENTIAL Lab Routine Encounter for long-term (current) use of other medications 11/05/2023 7:32 AM EDT CBC Lab Routine Encounter for long-term (current) use of other medications 11/05/2023 7:32 AM EDT DIFFERENTIAL, AUTOMATED Lab Routine Encounter for long-term (current) use of other medications 11/05/2023 7:32 AM EDT Scheduled Procedures Name Priority Associated Diagnoses Date/Ti me COLONOSCOPY FLEXIBLE PROXIMAL DIAGNOSTIC Recall Screen for colon cancer 01/12/2024 1:00 PM EDT Health Maintenance Due Date Last Done Comments Alpha-1 Antitrypsin 06/12/1975 Cologuard 2002 Fecal Occult Blood Test 2002 Sigmoidoscopy 2002 Zoster Vaccines (1 of 2) 06/12/2007 Depression Screening 05/29/2021 05/29/2020, 10/29/2017 (Discussed) COVID-19 Vaccine ( season) 2022 01/09/2021, 04/27/2020, 04/06/2020 Adult Wellness Visit 06/12/2023 Albumin/Creatinine Ratio 10/17/2023 023, 08/08/2021, 06/30/2018, Additional history exists Influenza Vaccine (FLU shot) (#1) 2023 12/16/2022, 11/30/2020, 01/03/2020, Additional history exists HbA1c 12/19/2023 06/19/2023, 12/16, 05/22/2022, Additional history exists B-12 01/09/2024 01/08/2023, 07/17, 07/25/2021, Additional history exists Diabetic Foot Exam 02/05/2024 02/04/2023, 1 , 10/27/2018, Additional history exists Diabetic Eye Exam 04/17/2024 04/17/2023, (Done elsewhere), 10/03/2021, Additional history exists GFR 06/18/2024 06/19/2023, 0310/2022, 07/25/2021, Additional history exists O2 ASSESSMENT COMPLETED IN PAST YEAR FOR COPD 06/18/2024 06/19/2023 TSH 06/18/2024 06/19/2023, 12/16, 02/20/2022, Additional history exists Lipid Panel 01/09/2028 01/08/2023, 020 10/2022, 02/14/2021, Additional history exists Colonoscopy 09/13/2030 09/13/2020, 08/17, 07/26/2020, Additional history exists Colorectal Cancer Screening 09/13/2030 DTaP,Tdap,and Td Vaccines (3 - Td or Tdap) 02/12/2031 [...] Diagnosis Encounter for long-term (current) use of other medications Screen for colon cancer Special screening for malignant neoplasms, colon documented in this encounter Care Teams Mix House Operator Relationship Specialty Start Date End Date Deonte Martinez III, MD [address] [place] [address] [place] [address] PCP - General 01/26/01 documented as of this encounter
--- OUTSIDE RECORDS SUMMARY | 2024-02-10 12:41 | External Medical Summary ---
Author Name Unknown Address Unknown Organization K01:[facility] [address] [place] [address] Laboratory Report Ordering Provider Test Date Status MARSHA MOLINA 12/15/2023 09:07:56 Final Observation Date Value Abnormality Reference (Units ) Status PSA 12/15/2023 09:07:56 0.34 <4.10 (ng/ mL) Final Performing Location [facility] - [address] [place] [address]
--- OUTSIDE RECORDS SUMMARY | 2024-02-10 12:41 | External Medical Summary ---
Author Name Unknown Address Unknown Organization K01:[facility] [place] - [address] [place] [address] Laboratory Report Ordering Provider Test Date Status ZORAN BANGURA 12/10/2023 08:10:33 Final Please call [phone] Ext ension 3200 for any high alert lab results. Observation Date Value Abnormality Reference (Units ) Status WBC, Total 12/10/2023 08:10:33 9.14 4.00-10.80 (K/uL) Final RBC 12/10/2023 08:10:33 4.66 4.50-5.25 (M/uL) Final Hemoglobin 12/10/2023 08:10:33 14.4 14.0-16.8 (g/dL) Final HCT 12/10/2023 08:10:33 44.7 40.0-48.4 (%) Final MCV 12/10/2023 08:10:33 95.9 82.0-99.5 (fL) Final MCH 12/10/2023 08:10:33 30.9 27.0-34.0 (pg) Final MCHC 12/10/2023 08:10:33 32.2 32.0-36.0 (g/dL) Final RDW 12/10/2023 08:10:33 13.2 11.5-15.5 (%) Final Platelets 12/10/2023 08:10:33 193 140-400 (K/uL) Final MPV 12/10/2023 08:10:33 12.2 6.6-11.1 (fL) Final Nucleated erythrocytes/100 leukocytes [Ratio] in Blood by Automated count 12/10/2023 08:10:33 0 <=0 (/100 WBCs) Final Performing Location [facility] - [address] [place] [address]
--- OUTSIDE RECORDS SUMMARY | 2024-02-10 12:41 | External Medical Summary | Summary of Care ---
Author Name Unknown Organization [facility] Address [address] [place] [address] Phone [phone] Care Team Providers Care Driver License Reviewing Officer Name Role Phone Michelle GUPTA MD, Deonte Mays Primary Care Provider Reason for Visit * Reason Comments Outpatient Testing Encounter Details Date Type Department Care Team (Late st Contact Info) Description 12/10/2023 8:30 AM EDT Laboratory Laboratory, [place] [address] [place] [phone] [place], [facility] [address] [place] [address] Encounter for long-term (current) use of other medications Allergies Active Allergy Reactions Criticality Noted Date Comments Penicillins Unknown 04/18/2000 documented as of this encounter (statuses as of 12/10/2023) Medications Medication Sig Dispensed Refills Start Date End Date Status PAXIL 30 MG PO TABSIndications:Anx iety state,Panic disorder bid 34 5 07/26/2008 Active KLONOPIN 1 MG PO TABSIndications:ajn es at 12 noon and 5:00 pm [...] as of this encounter (statuses as of 12/10/2023) Active Problems Problem Noted Date Diagnosed Date [...] as of this encounter (statuses as of 12/10/2023) Resolved Problems Problem Noted Date Diagnosed Date [...] as of this encounter (statuses as of 12/10/2023) Immunizations Name Administration Dates Next Due COVID-19 mRNA, LNP-s, No Pre serve, 2-Dose Series ([employer]) 01/09/2021,04/27/2020,04/06/2020 H1N1 2009 Influenza, IM 01/29/2009 Hepatitis B, 20+ yrs 05/21/2011 PPD 11/09/2013,05/21/2011 Pneumococcal Conjugate Vacci ne, 20-valent ([id number]) 05/09/2022 Pneumococcal Polysaccharide PPV23 (Pneumovax) 12/18/2017 Seasonal Influenza, PF, 6 M & above, IM , (FluLaval or Fluzone) 12/16/2022,11/30/2020,01/03/2020,12/18,12/18/2017,02/27/2017 Seasonal Influenza, Quadriva lent, No Preserve, IM 04/12/2016,04/12/2015 Seasonal Influenza, Trivalen t, (IIV3), with Preserv, (Fluzone) 11/11/2013,01/11/2013,05/14/2012,01/07,02/12/2010,01/11/2009 TDAP, Age 7 and older, IM [...] 12/17/2023 10:15 AM EDT Office Visit Urology, [facility] [address] [place] [address] Chay Kelly MD [address] [place] [address] 12/19/2023 8:00 AM EDT Office Visit Family Practice [facility] [address] [facility] [place] [address] Deonte Martinez III, MD [address] [facility] [place] [address] 01/07/2024 8:30 AM EDT Laboratory Laboratory, [place] [address] [facility] [place] [phone] [facility] [address] [place] [address] 01/12/2024 1:00 PM EDT Hospital Encounter [facility]O [facility], Endoscopy Room [facility] [address] [place] [phone] Kristin Quinn DO [address] [place] [address] 01/12/2024 1:00 PM EDT - 01/12/2024 1:30 PM EDT Surgery ENDO [facility], Endoscopy Room [facility] [address] [place] [phone] Kristin Quinn DO [address] [place] [address] COLONOSCOPY FLEXIBLE PROXIMAL DIAGNOSTIC 02/06/2024 9:00 AM EST Office Visit Family Practice [facility] [address] [place] [address] Deonte Martinez III, MD [address] [facility] [place] [address] 03/18/2024 9:00 AM EST Office Visit Neurology [facility] [address] [place] [address] Dona Granados PA-C [address] [place] [address] Pending Results Name Type Priority Associated Diagnoses Date /Time CBC WITH WBC DIFFERENTIAL Lab Routine Encounter for long-term (current) use of other medications 12/10/2023 8:10 AM EDT CBC Lab Routine Encounter for long-term (current) use of other medications 12/10/2023 8:10 AM EDT DIFFERENTIAL, AUTOMATED Lab Routine Encounter for long-term (current) use of other medications 12/10/2023 8:10 AM EDT Scheduled Procedures Name Priority Associated [...] 10/27/2018, Additional history exists GFR 06/18/2024 06/19/2023, 10/2022, 07/25/2021, Additional history exists O2 ASSESSMENT COMPLETED IN PAST YEAR FOR COPD 06/18/2024 06/19/2023 TSH 06/18/2024 06/19/2023, 12/16, 02/20/2022, Additional history exists Diabetic Eye Exam 11/03/2024 11/04/2023, , 01/29/2022 (Done elsewhere), Additional history exists Lipid Panel 01/09/2028 01/08/2023, 02/0 10/2022, 02/14/2021, Additional history exists Colonoscopy 09/13/2030 [...] colon documented in this encounter Care Teams Driver License Reviewing Officer Relationship Specialty Start Date End Date Deonte Martinez III, MD [address] [place] [address] PCP - General 01/26/01 documented as of this encounter
--- OUTSIDE RECORDS SUMMARY | 2024-02-10 12:41 | External Medical Summary | Summary of Care ---
Author Name Unknown Organization [facility] Address [address] [place] [address] Phone [phone] Care Team Providers Care Paint Line Operator Name Role Phone Michelle GUPTA MD, John E Primary Care Provider [phone] Encounter Details Date Type Department Care Team (Late st Contact Info) Description 11/05/2023 Orders Only Family Practice [facility] [place] [address] [place] [address] Deonte Martinez III, MD [address] [place] [address] Allergies Active Allergy Reactions Criticality Noted Date [...] Vitamin (DAILY-PITER) TABS daily. 0 03/03/2017 Active LiveStubTouch UltraSoft Lancets Use as directed daily as [...] Patch topically on the skin daily. Active [employer] Verio w/Device Kit Use 1 time daily as needed E11.9 1 Kit 04/22/2022 Active LiveStubToCoship Electronics Verio In Vitro Strip (Glucose Blood) Testing [...] mRNA, LNP-s, No Pre serve, 2-Dose Series (EQ works) 01/09/2021,04/27/2020,04/06/2020 H1N1 2009 Influenza, IM 01/29/2009 Hepatitis B, 20+ yrs 05/21/2011 PPD 11/09/2013,05/21/2011 Pneumococcal Conjugate Vacci ne, 20-valent ([id number]) 05/09/2022 Pneumococcal Polysaccharide PPV23 (Pneumovax) 12/18/2017 Seasonal [...] 12/17/2023 10:15 AM EDT Office Visit Urology, [facility] [address] [address] Chay Kelly MD [address] [place] [address] 12/19/2023 8:00 AM EDT Office Visit [facility] [address] [facility] [place] [address] Deonte Martinez III, MD [address] [facility] [place] [address] 01/12/2024 1:00 PM EDT Hospital Encounter ENDO [facility], Endoscopy Room [facility] [address] [place] [phone] Kristin Quinn DO [address] [place] [address] 01/12/2024 1:00 PM EDT - 01/12/2024 1:30 PM EDT Surgery ENDO [facility], Endoscopy Room [facility] [address] [place] [phone] Kristin Quinn DO [address] [place] [address] COLONOSCOPY FLEXIBLE PROXIMAL DIAGNOSTIC 02/06/2024 9:00 AM EST Office Visit [facility] [address] [facility] [address] [place] [address] Deonte Martinez III, MD [address] [facility] [place] [address] 03/18/2024 9:00 AM EST Office Visit Neurology [facility] [address] [facility] [place] [address] Dona Granados PA-C [address] [place] [address] Scheduled Procedures Name Priority Associated Diagnoses Date/Ti [...] Additional history exists Diabetic Eye Exam 04/17/2024 11/04/2023, , 01/29/2022 (Done elsewhere), Additional history exists GFR 06/18/2024 06/19/2023, 0 10/2022, 07/25/2021, Additional history exists O2 ASSESSMENT COMPLETED IN PAST YEAR FOR COPD 06/18/2024 06/19/2023 TSH 06/18/2024 06/19/2023, 12/16, 02/20/2022, Additional history exists Lipid Panel 01/09/2028 01/08/2023, 0 10/2022, 02/14/2021, Additional history exists Colonoscopy 09/13/2030 [...] Not on filedocumented as of this encounter Procedures Procedure Name Priority Date/Time Associated Diagnosis Comments DIABETIC EYE EXAM Routine 11/04/2023 documented in this encounter Results * DIABETIC EYE EXAM (11/04/2023) 11/04/2023 Diamond Garcia OD OTHER OUTSIDE LAB (SEE SCANNED REPORT) documented in this encounter Care Teams Paint Line Operator Relationship Specialty Start Date End Date Deonte Martinez III, MD [address] [place] [address] PCP - General 01/26/01 documented as of this encounter
--- OUTSIDE RECORDS SUMMARY | 2024-02-10 12:41 | External Medical Summary | Summary of Care ---
Author Name Unknown Organization [facility] Address [address] [place] [address] Phone [phone] Care Team Providers Care Entry Level Financial Analyst Name Role Phone Michelle GUPTA MD, Deonte Mays Primary Care Provider [phone] Reason for Visit * Reason Comments Outpatient Testing Encounter Details Date Type Department Care Team (Late st Contact Info) Description 12/15/2023 9:30 AM EDT Laboratory Laboratory, [place] [address] [place] [phone] [place], Laboratory [address] [place] [address] BPH with obstruction/lower urinary tract symptoms Allergies Active Allergy Reactions Criticality Noted Date Comments Penicillins Unknown 04/18/2000 documented as of this encounter (statuses as of 12/15/2023) Medications Medication Sig Dispensed Refills Start Date [...] as of this encounter (statuses as of 12/15/2023) Active Problems Problem Noted Date Diagnosed Date [...] as of this encounter (statuses as of 12/15/2023) Resolved Problems Problem Noted Date Diagnosed Date [...] as of this encounter (statuses as of 12/15/2023) Immunizations Name Administration Dates Next Due COVID-19 mRNA, LNP-s, No Pre serve, 2-Dose Series ([employer]) 01/09/2021,04/27/2020,04/06/2020 H1N1 2009 Influenza, IM 01/29/2009 Hepatitis B, 20+ yrs 05/21/2011 PPD 11/09/2013,05/21/2011 Pneumococcal Conjugate Vacci ne, 20-valent ([id number]) 05/09/2022 Pneumococcal Polysaccharide PPV23 (Pneumovax) 12/18/2017 Seasonal [...] 12/17/2023 10:15 AM EDT Office Visit Urology, [facility] [address] [place] [address] Chay Kelly MD [address] [place] [address] 12/19/2023 8:00 AM EDT Office Visit Family Practice [facility] [address] [facility] [place] [address] Deonte Martinez III, MD [address] [facility] [place] [address] 01/07/2024 8:30 AM EDT Laboratory Laboratory, [place] [address] [place] [address] [facility] [address] [place] [address] 01/12/2024 1:00 PM EDT Hospital Encounter ENDO [facility], Endoscopy Room [facility] [address] [place] [phone] Kristin Quinn DO [address] [place] [address] 01/12/2024 1:00 PM EDT - 01/12/2024 1:30 PM EDT Surgery ENDO [facility], Endoscopy Room [facility] [address] [place] [phone] Kristin Quinn DO [address] [place] [address] COLONOSCOPY FLEXIBLE PROXIMAL DIAGNOSTIC 02/06/2024 9:00 AM EST Office Visit Family Practice [facility] [address] [place] [address] Deonte Martinez III, MD [address] [place] [address] 03/18/2024 9:00 AM EST Office Visit Neurology [facility] [address] [place] [address] Dona Granados PA-C [address] [place] [address] Pending Results Name Type Priority Associated Diagnoses Date /Time PSA Lab Routine BPH with obstruction/lower urinary tract symptoms 12/15/2023 9:07 AM EDT Scheduled Procedures Name Priority Associated [...] Diagnoses Diagnosis BPH with obstruction/lower urinary tract symptoms Hypertrophy of prostate with urinary obstruction and other lower urinary tract symptoms (LUTS) Screen for colon cancer Special screening for malignant neoplasms, colon documented in this encounter Care Teams Entry Level Financial Analyst Relationship Specialty Start Date End Date Deonte Martinez III, MD [address] [facility] [place] [address] PCP - General 01/26/01 documented as of this encounter
--- OUTSIDE RECORDS SUMMARY | 2024-02-10 12:41 | External Medical Summary | Summary of Care ---
Author Name Unknown Organization [facility] Address [address] [place] [address] Phone [phone] Care Team Providers Care Cooker Soda Name Role Phone Michelle GUPTA MD, Deonte Mays Primary Care Provider Reason for Visit * Reason Comments Outpatient Testing Encounter Details Date Type Department Care Team (Late st Contact Info) Description 12/10/2023 8:30 AM EDT Laboratory Laboratory, [place] [address] [place] [phone] [place], [facility] [address] [place] [address] Encounter for long-term (current) use of other [...] mRNA, LNP-s, No Pre serve, 2-Dose Series ([employer]) 01/09/2021,04/27/2020,04/06/2020 H1N1 2009 Influenza, IM 01/29/2009 Hepatitis B, 20+ yrs 05/21/2011 PPD 11/09/2013,05/21/2011 Pneumococcal Conjugate Vacci ne, 20-valent ([id number]) 05/09/2022 Pneumococcal Polysaccharide PPV23 (Pneumovax) 12/18/2017 Seasonal [...] 12/17/2023 10:15 AM EDT Office Visit Urology, [facility] [address] [place] [address] Chay Kelly MD [address] [place] [address] 12/19/2023 8:00 AM EDT Office Visit Family Practice [facility] [address] [facility] [place] [address] Deonte Martinez III, MD [address] [facility] [place] [address] 01/07/2024 8:30 AM EDT Laboratory Laboratory, [place] [address] [facility] [place] [phone] [facility] [address] [place] [address] 01/12/2024 1:00 PM EDT Hospital Encounter ENDO [facility], Endoscopy Room [facility] [address] [place] [phone] Kristin Quinn DO [address] [place] [address] 01/12/2024 1:00 PM EDT - 01/12/2024 1:30 PM EDT Surgery ENDO [facility], Endoscopy Room [facility] [address] [place] [phone] Kristin Quinn DO [address] [place] [address] COLONOSCOPY FLEXIBLE PROXIMAL DIAGNOSTIC 02/06/2024 9:00 AM EST Office Visit Family Practice [facility] [address] [place] [address] Deonte Martinez III, MD 200 [facility] [place] [address] 03/18/2024 9:00 AM EST Office Visit Neurology [facility] [address] [place] [address] Dona Granados PA-C [address] [place] [address] Pending Results Name Type Priority Associated Diagnoses [...] colon documented in this encounter Care Teams Cooker Soda Relationship Specialty Start Date End Date Deonte Martinez III, MD [address] [place] [address] PCP - General 01/26/01 documented as of this encounter
--- OUTSIDE RECORDS SUMMARY | 2024-02-10 12:41 | External Medical Summary ---
Author Name Unknown Address Unknown Organization [id number]:LABORATORY [facility] - [address] [facility] [address] Laboratory Report Ordering Provider Test Date Status ZORAN BANGURA 12/10/2023 08:10:33 Final Please call [phone] Ext ension 3200 for any high alert lab results. Observation Date Value Abnormality Reference (Units ) Status SYNC LEUKOCYTES IN BLOOD BY AUTOMATED COUNT 12/10/2023 08:10:33 9.14 4.00-10.80 (K/uL) Final Segs 12/10/2023 08:10:33 60.1 40.0-75.0 (%) Final Lymphs % 12/10/2023 08:10:33 26.3 18.0-42.0 (%) Final Monos 12/10/2023 08:10:33 7.0 1.0-11.0 (%) Final Eosinophils 12/10/2023 08:10:33 5.7 0.0-6.0 (%) Final Basos 12/10/2023 08:10:33 0.4 0.0-2.0 (%) Final Immature Granulocyte, Percent 12/10/2023 08:10:33 0.5 0.0-2.0 (%) Final Absolute Segs 12/10/2023 08:10:33 5.49 1.80-7.70 (K/uL) Final Lymphs, absolute 12/10/2023 08:10:33 2.40 1.00-4.80 (K/ul) Final Monos, Abs 12/10/2023 08:10:33 0.64 0.00-1.10 (K/uL) Final Eos, Abs 12/10/2023 08:10:33 0.52 0.00-0.70 (K/uL) Final Basos, Abs 12/10/2023 08:10:33 0.04 0.00-0.20 (K/uL) Final Immature Granulocytes, Number 12/10/2023 08:10:33 0.05 0.00-0.20 (K/uL) Final Performing Location LABORATORY [facility] - [facility] [address] [facility] [address]
--- OUTSIDE RECORDS SUMMARY | 2024-02-10 12:41 | External Medical Summary ---
Author Name Unknown Address Unknown Organization K01:LABORATORY [facility] - [address] [place] [address] Laboratory Report Ordering Provider Test Date Status ZORAN BANGURA 11/05/2023 07:32:36 Final Please call [phone] Ext ension 3200 for any high alert lab results. Observation Date Value Abnormality Reference (Units ) Status WBC, Total 11/05/2023 07:32:36 9.31 4.00-10.80 (K/uL) Final RBC 11/05/2023 07:32:36 4.75 4.50-5.25 (M/uL) Final Hemoglobin 11/05/2023 07:32:36 14.6 14.0-16.8 (g/dL) Final HCT 11/05/2023 07:32:36 46.9 40.0-48.4 (%) Final MCV 11/05/2023 07:32:36 98.7 82.0-99.5 (fL) Final MCH 11/05/2023 07:32:36 30.7 27.0-34.0 (pg) Final MCHC 11/05/2023 07:32:36 31.1 32.0-36.0 (g/dL) Final RDW 11/05/2023 07:32:36 13.3 11.5-15.5 (%) Final Platelets 11/05/2023 07:32:36 178 140-400 (K/uL) Final MPV 11/05/2023 07:32:36 13.0 6.6-11.1 (fL) Final Nucleated erythrocytes/100 leukocytes [Ratio] in Blood by Automated count 11/05/2023 07:32:36 0 <=0 (/100 WBCs) Final Performing Location LABORATORY [facility] - [address] [place] [address]
--- OUTSIDE RECORDS SUMMARY | 2024-02-10 12:42 | External Medical Summary | Summary of Care ---
Author Name Unknown Organization [facility] Address [address] [place] [address] Phone [phone] Care Team Providers Care Vault Cashier Name Role Phone Michelle GUPTA MD, Deonte Mays Primary Care Provider [phone] Reason for Visit * Reason Onset Date Comments Health Maintenance 10/24/2023 Encounter Details Date Type Department Care Team (Late st Contact Info) Description 10/24/2023 Telephone Family Practice [facility] [address] [place] [address] Deonte Martinez III, MD [address] [place] [address] Health Maintenance Allergies Active Allergy Reactions Criticality Noted Date Comments Penicillins Unknown 04/18/2000 documented as of this encounter (statuses as of 10/24/2023) Medications Medication Sig Dispensed Refills Start Date [...] as of this encounter (statuses as of 10/24/2023) Active Problems Problem Noted Date Diagnosed Date [...] as of this encounter (statuses as of 10/24/2023) Resolved Problems Problem Noted Date Diagnosed Date [...] as of this encounter (statuses as of 10/24/2023) Immunizations Name Administration Dates Next Due COVID-19 mRNA, LNP-s, No Pre serve, 2-Dose Series ([employer]) 01/09/2021,04/27/2020,04/06/2020 H1N1 2009 Influenza, IM 01/29/2009 Hepatitis B, 20+ yrs 05/21/2011 PPD 11/09/2013,05/21/2011 Pneumococcal Conjugate Vacci ne, 20-valent ([id number]) 05/09/2022 Pneumococcal Polysaccharide PPV23 (Pneumovax) 12/18/2017 Seasonal [...] encounter Miscellaneous Notes * Telephone Encounter - Aletha Glover LPN - 10/24/2023 10:44 AM EDT Care Gaps Comprehensive Care Outreach Last Office/Telemedicine Visit: 06/19/2023 (in office), 06/23/2019 (telemedicine) Next Office Visit: 12/19/2023 Hemoglobin AIC Results: Lab Results Component Value Date/Time HEMOGLOBIN A1C - [facility] 5.8 (H) 06/19/2023 09:24 AM HEMOGLOBIN A1C - [facility] 5.8 (H) 01/08/2023 07:41 AM HEMOGLOBIN A1C - [facility] 6.0 (H) 05/22/2022 09:20 AM HEMOGLOBIN A1C - [facility] 6.1 (H) 01/28/2020 07:55 AM HEMOGLOBIN A1C - [facility] 6.0 (H) 09/27/2019 10:52 AM HEMOGLOBIN A1C - [facility] 6.1 (H) 04/28/2019 07:43 AM BP Readings from Last 1 Encounters: 06/19/23 116/74 Reviewed Health Maintenance below: Health Maintenance Topic Date Due Alpha-1 Antitrypsin Never done Zoster Vaccines (1 of 2) Never done Depression Screening 05/29/2021 COVID-19 Vaccine ( season) 2022 Adult Wellness Visit Never done Albumin/Creatinine Ratio 10/17/2023 Influenza Vaccine (FLU shot) (1) 11/16/2023 HbA1c 12/19/2023 B-12 01/09/2024 Diabetic Foot Exam 02/05/2024 Labs awv Care Gap Outreach Action Taken: Left message documented in this encounter Plan of Treatment Upcoming Encounters Date Type Department Care Team (Late st Contact Info) Description 11/05/2023 8:30 AM EDT Laboratory [facility], [place] [address] [facility] [phone] [place], Laboratory [address] [facility], [place] [address] 12/17/2023 10:15 AM EDT Office Visit Urology, [facility] [address] [place] [address] Chay Kelly MD [address] [place] [address] 12/19/2023 8:00 AM EDT Office Visit [facility] [address] [place] [address] Doente Martinez III, MD [address] [place] [address] 01/12/2024 1:00 PM EDT Hospital Encounter ENDO [facility], Endoscopy Room [facility] [address] [place] [phone] Kristin Quinn DO [address] [place] [address] 01/12/2024 1:00 PM EDT - 01/12/2024 1:30 PM EDT Surgery ENDO [facility], Endoscopy Room [facility] [address] [place] [phone] Kristin Quinn DO [address] [place] [address] COLONOSCOPY FLEXIBLE PROXIMAL DIAGNOSTIC 02/06/2024 9:00 AM EST Office Visit [facility] [address] [place] [address] Deonte Martinez III, MD 200 [facility] [place] [address] 02/17/2024 9:00 AM EST Office Visit Neurology [facility] [place] [address] [facility] [place] [address] Dona Granados PA-C [address] [place] [address] Scheduled Procedures Name Priority Associated Diagnoses Date/Ti [...] 05/22/2022, Additional history exists B-12 01/09/2024 01/08/2023, 05/03/2022, 07/25/2021, Additional history exists Diabetic Foot Exam 02/05/2024 02/04/2023, 1 , 10/27/2018, Additional history exists Diabetic Eye Exam 04/17/2024 04/17/2023, (Done elsewhere), 10/03/2021, Additional history exists GFR 06/18/2024 06/19/2023, 10/2022, 07/25/2021, Additional history exists O2 ASSESSMENT COMPLETED IN PAST YEAR FOR COPD 06/18/2024 06/19/2023 TSH 06/18/2024 06/19/2023, 12/16, 02/20/2022, Additional history exists Lipid Panel 01/09/2028 01/08/2023, 10/2022, 02/14/2021, Additional history exists Colonoscopy 09/13/2030 [...] filedocumented as of this encounter Care Teams Vault Cashier Relationship Specialty Start Date End Date Deonte Martinez III, MD 200 [place] [address] PCP - General 01/26/01 documented as of this encounter
--- OUTSIDE RECORDS SUMMARY | 2024-02-10 12:42 | External Medical Summary ---
Author Name Unknown Address Unknown Organization [id number]:LABORATORY [facility] - [address] [facility] [address] Laboratory Report Ordering Provider Test Date Status ZORAN BANGURA 09/10/2023 07:56:16 Final Please call [phone] Ext ension 3200 for any high alert lab results. Observation Date Value Abnormality Reference (Units ) Status SYNC LEUKOCYTES IN BLOOD BY AUTOMATED COUNT 09/10/2023 07:56:16 8.69 4.00-10.80 (K/uL) Final Segs 09/10/2023 07:56:16 49.4 40.0-75.0 (%) Final Lymphs % 09/10/2023 07:56:16 34.9 18.0-42.0 (%) Final Monos 09/10/2023 07:56:16 8.3 1.0-11.0 (%) Final Eosinophils 09/10/2023 07:56:16 6.3 Above high normal 0.0-6.0 (%) Final Basos 09/10/2023 07:56:16 0.6 0.0-2.0 (%) Final Immature Granulocyte, Percent 09/10/2023 07:56:16 0.5 0.0-2.0 (%) Final Absolute Segs 09/10/2023 07:56:16 4.30 1.80-7.70 (K/uL) Final Lymphs, absolute 09/10/2023 07:56:16 3.03 1.00-4.80 (K/ul) Final Monos, Abs 09/10/2023 07:56:16 0.72 0.00-1.10 (K/uL) Final Eos, Abs 09/10/2023 07:56:16 0.55 0.00-0.70 (K/uL) Final Basos, Abs 09/10/2023 07:56:16 0.05 0.00-0.20 (K/uL) Final Immature Granulocytes, Number 09/10/2023 07:56:16 0.04 0.00-0.20 (K/uL) Final Performing Location LABORATORY [facility] - [facility] [address] [facility] [address]
--- OUTSIDE RECORDS SUMMARY | 2024-02-10 12:42 | External Medical Summary ---
Author Name Unknown Address Unknown Organization K01:LABORATORY [facility] - [address] [facility] [address] Laboratory Report Ordering Provider Test Date Status ZORAN BANGURA 11/05/2023 07:32:36 Final Please call [phone] Ext ension 3200 for any high alert lab results. Observation Date Value Abnormality Reference (Units ) Status SYNC LEUKOCYTES IN BLOOD BY AUTOMATED COUNT 11/05/2023 07:32:36 9.31 4.00-10.80 (K/uL) Final Segs 11/05/2023 07:32:36 50.5 40.0-75.0 (%) Final Lymphs % 11/05/2023 07:32:36 33.3 18.0-42.0 (%) Final Monos 11/05/2023 07:32:36 8.8 1.0-11.0 (%) Final Eosinophils 11/05/2023 07:32:36 6.3 Above high normal 0.0-6.0 (%) Final Basos 11/05/2023 07:32:36 0.5 0.0-2.0 (%) Final Immature Granulocyte, Percent 11/05/2023 07:32:36 0.6 0.0-2.0 (%) Final Absolute Segs 11/05/2023 07:32:36 4.69 1.80-7.70 (K/uL) Final Lymphs, absolute 11/05/2023 07:32:36 3.10 1.00-4.80 (K/ul) Final Monos, Abs 11/05/2023 07:32:36 0.82 0.00-1.10 (K/uL) Final Eos, Abs 11/05/2023 07:32:36 0.59 0.00-0.70 (K/uL) Final Basos, Abs 11/05/2023 07:32:36 0.05 0.00-0.20 (K/uL) Final Immature Granulocytes, Number 11/05/2023 07:32:36 0.06 0.00-0.20 (K/uL) Final Performing Location LABORATORY [facility] - [facility] [address] [facility] [address]
--- OUTSIDE RECORDS SUMMARY | 2024-02-10 12:42 | External Medical Summary | Summary of Care ---
Author Name Unknown Organization [facility] Address [address] [place] [address] Phone [phone] Care Team Providers Care Yard Warehouse Worker Name Role Phone Michelle GUPTA MD, Nikita Mays Primary Care Provider [phone] Reason for Visit * Reason Comments eRx-Medication Refill Encounter Details Date Type Department Care Team ([facility] Contact Info) Description 09/21/2023 Refill Family Practice [facility] [address] [place] [address] Nikita Esteban III, MD [address] [place] [address] Chronic bilateral low back pain with right-sided sciatica; Lumbar degenerative disc disease; Facet arthropathy, lumbar Allergies Active Allergy Reactions Criticality Noted Date Comments Penicillins Unknown 04/18/2000 documented as of this encounter (statuses as of 09/23/2023) Medications Medication Sig Dispensed Refills Start Date [...] Additional Information Patient not taking.Reported on 06/19/2023 Levothyroxine Sodium 25 MCG Oral Tablet (Levoxyl) TAKE ONE TABLET BY MOUTH DAILY *HYPOTHYROIDISM* 28 Tablet 4 05/05/2023 Active Topiramate 50 MG Oral Tablet (topAMAX) [...] TYLENOL NEEDED 28 Tablet 5 09/23/2023 Active Lisinopril 20 MG Oral Tablet (Prinivil) TAKE ONE TABLET BY MOUTH DAILY *HTN* 90 Tablet 2 10/15/2022 09/23/19 24 Discontinued Meloxicam 15 MG Oral Tablet (Mobic)Indication s:Chronic bilateral low back pain with right-sided sciatica,Lumbar degenerative disc disease,Facet arthropathy, lumbar TAKE 1 TABLET BY MOUTH ONCE DAILY FOR PAIN, NO OTHER NSAIDS WHILE ON MED, MAY TAKE TYLENOL NEEDED 28 Tablet 4 04/11/2023 09/23/19 24 Discontinued documented as of this encounter (statuses as of 09/23/2023) Active Problems Problem Noted Date Diagnosed Date [...] as of this encounter (statuses as of 09/23/2023) Resolved Problems Problem Noted Date Diagnosed Date [...] as of this encounter (statuses as of 09/23/2023) Immunizations Name Administration Dates Next Due COVID-19 mRNA, LNP-s, No Pre serve, 2-Dose Series ([employer]) 01/09/2021,04/27/2020,04/06/2020 H1N1 2009 Influenza, IM 01/29/2009 Hepatitis B, 20+ yrs 05/21/2011 PPD 11/09/2013,05/21/2011 Pneumococcal Conjugate Vacci ne, 20-valent ([id number]) 05/09/2022 Pneumococcal Polysaccharide PPV23 (Pneumovax) 12/18/2017 Seasonal [...] encounter Miscellaneous Notes * Telephone Encounter - Jennifer Dumont RPh - 09/23/2023 9:56 AM EDTSigned Prescriptions: Disp Refills Lisinopril 20 MG Oral Tablet (Prinivil) 28 Tab*5 Sig: TAKE ONE TABLET BY MOUTH DAILY *HTN*Authorizing Provider: NIKITA ESTEBAN III User: JENNIFER DUMOTNMeloxicam 15 MG Oral Tablet (Mobic) 28 Tab*5 Sig: TAKE 1 TABLET BY MOUTH ONCE DAILY FOR PAIN, NO OTHER NSAIDS WHILE ON MED, MAY TAKE TYLENOL NEEDEDAuthorizing Provider: NIKITA ESTEBAN III User: JENNIFER DUMONT documented in this encounter Plan of Treatment Upcoming Encounters Date Type Department Care Team (Late st Contact Info) Description 10/15/2023 8:30 AM EDT Laboratory [facility], [place] [address] [facility] [address] [place], Laboratory [address] [facility], [place] [address] 12/17/2023 10:15 AM EDT Office Visit Urology, [facility] [address] [place] [address] Chay Kelly MD [address] [place] [address] 12/19/2023 8:00 AM EDT Office Visit [facility] [address] [facility] [place] [address] Nikita Esteban III, MD [address] [place] [address] 01/12/2024 1:00 PM EDT Hospital Encounter ENDO [facility], Endoscopy Room [facility] [address] [place] [phone] Kristin Quinn DO [address] [place] [address] 01/12/2024 1:00 PM EDT - 01/12/2024 1:30 PM EDT Surgery ENDO [facility], Endoscopy Room [facility] [address] [place] [phone] Kristin Quinn DO [address] [place] [address] COLONOSCOPY FLEXIBLE PROXIMAL DIAGNOSTIC 02/06/2024 9:00 AM EST Office Visit [facility] [address] [place] [address] Nikita Esteban III, MD 200 [facility] [place] [address] 02/17/2024 9:00 AM EST Office Visit Neurology [facility] [place] [address] [facility] [place] [address] Dona Granados PA-C [address] [place] [address] Scheduled Procedures Name Priority Associated Diagnoses Date/Ti me COLONOSCOPY FLEXIBLE PROXIMAL DIAGNOSTIC Recall Screen for colon cancer 01/12/2024 1:00 PM EDT Health Maintenance Due Date Last Done Comments Alpha-1 Antitrypsin 06/12/1975 Cologuard 2002 Fecal Occult Blood Test 2002 Sigmoidoscopy 2002 Zoster Vaccines (1 of 2) 06/12/2007 Depression Screening 05/29/2021 05/29/2020, 10/29/2017 (Discussed) COVID-19 Vaccine ( season) 2022 01/09/2021, 04/27/2020, 04/06/2020 Albumin/Creatinine Ratio 10/17/2023 023, 08/08/2021, 06/30/2018, Additional [...] as of this encounter Visit Diagnoses Diagnosis Chronic bilateral low back pain with right-sided sciatica Lumbar degenerative disc disease Degeneration of lumbar or lumbosacral intervertebral disc Facet arthropathy, lumbar Lumbosacral spondylosis without myelopathy Screen for colon cancer Special screening for malignant neoplasms, colon documented in this encounter Care Teams Yard Warehouse Worker Relationship Specialty Start Date End Date Nikita Esteban III, MD [address] [place] [address] PCP - General 01/26/01 documented as of this encounter
--- OUTSIDE RECORDS SUMMARY | 2024-02-10 12:42 | External Medical Summary ---
Author Name Unknown Address Unknown Organization K01:LABORATORY [facility] - [address] [facility] [address] Laboratory Report Ordering Provider Test Date Status ZORAN BANGURA 10/15/2023 07:46:00 Final Please call [phone] Ext ension 3200 for any high alert lab results. Observation Date Value Abnormality Reference (Units ) Status SYNC LEUKOCYTES IN BLOOD BY AUTOMATED COUNT 10/15/2023 07:46:00 9.36 4.00-10.80 (K/uL) Final Segs 10/15/2023 07:46:00 56.9 40.0-75.0 (%) Final Lymphs % 10/15/2023 07:46:00 29.0 18.0-42.0 (%) Final Monos 10/15/2023 07:46:00 7.3 1.0-11.0 (%) Final Eosinophils 10/15/2023 07:46:00 5.7 0.0-6.0 (%) Final Basos 10/15/2023 07:46:00 0.6 0.0-2.0 (%) Final Immature Granulocyte, Percent 10/15/2023 07:46:00 0.5 0.0-2.0 (%) Final Absolute Segs 10/15/2023 07:46:00 5.33 1.80-7.70 (K/uL) Final Lymphs, absolute 10/15/2023 07:46:00 2.71 1.00-4.80 (K/ul) Final Monos, Abs 10/15/2023 07:46:00 0.68 0.00-1.10 (K/uL) Final Eos, Abs 10/15/2023 07:46:00 0.53 0.00-0.70 (K/uL) Final Basos, Abs 10/15/2023 07:46:00 0.06 0.00-0.20 (K/uL) Final Immature Granulocytes, Number 10/15/2023 07:46:00 0.05 0.00-0.20 (K/uL) Final Performing Location LABORATORY [facility] - [facility] [address] [facility] [address]
--- OUTSIDE RECORDS SUMMARY | 2024-02-10 12:42 | External Medical Summary ---
Author Name Unknown Address Unknown Organization K01:LABORATORY [facility] - [address] [place] [address] Laboratory Report Ordering Provider Test Date Status ZORAN BANGURA 09/10/2023 07:56:16 Final Please call [phone] Ext ension 3200 for any high alert lab results. Observation Date Value Abnormality Reference (Units ) Status WBC, Total 09/10/2023 07:56:16 8.69 4.00-10.80 (K/uL) Final RBC 09/10/2023 07:56:16 4.62 4.50-5.25 (M/uL) Final Hemoglobin 09/10/2023 07:56:16 14.3 14.0-16.8 (g/dL) Final HCT 09/10/2023 07:56:16 44.0 40.0-48.4 (%) Final MCV 09/10/2023 07:56:16 95.2 82.0-99.5 (fL) Final MCH 09/10/2023 07:56:16 31.0 27.0-34.0 (pg) Final MCHC 09/10/2023 07:56:16 32.5 32.0-36.0 (g/dL) Final RDW 09/10/2023 07:56:16 13.3 11.5-15.5 (%) Final Platelets 09/10/2023 07:56:16 186 140-400 (K/uL) Final MPV 09/10/2023 07:56:16 12.5 6.6-11.1 (fL) Final Nucleated erythrocytes/100 leukocytes [Ratio] in Blood by Automated count 09/10/2023 07:56:16 0 <=0 (/100 WBCs) Final Performing Location LABORATORY [facility] - [address] [place] [address]
--- OUTSIDE RECORDS SUMMARY | 2024-02-10 12:42 | External Medical Summary | Summary of Care ---
Author Name Unknown Organization [facility] Address [address] [place] [address] Phone [phone] Care Team Providers Care Laser Set Up Operator Name Role Phone Michlele GUPTA MD, Nikita Mays Primary Care Provider [phone] Reason for Visit * Reason Comments eRx-Medication Refill Encounter Details Date Type Department Care Team ([facility] Contact Info) Description 10/16/[address] [facility] [address] [facility] [place] [address] Nikita Esteban III, MD [address] [place] [address] Allergies Active Allergy Reactions Criticality Noted Date Comments Penicillins Unknown 04/18/2000 documented as of this encounter (statuses as of 10/16/2023) Medications Medication Sig Dispensed Refills Start Date [...] DAILY *HYPOTHYROIDISM* 30 Tablet 4 10/16/2023 Active Levothyroxine Sodium 25 MCG Oral Tablet (Levoxyl) TAKE ONE TABLET BY MOUTH DAILY *HYPOTHYROIDISM* 28 Tablet 4 05/05/2023 10/16/19 24 Discontinued documented as of this encounter (statuses as of 10/16/2023) Active Problems Problem Noted Date Diagnosed Date [...] as of this encounter (statuses as of 10/16/2023) Resolved Problems Problem Noted Date Diagnosed Date [...] as of this encounter (statuses as of 10/16/2023) Immunizations Name Administration Dates Next Due COVID-19 mRNA, LNP-s, No Pre serve, 2-Dose Series ([email or web address]) 01/09/2021,04/27/2020,04/06/2020 H1N1 2009 Influenza, IM 01/29/2009 Hepatitis B, 20+ yrs 05/21/2011 PPD 11/09/2013,05/21/2011 Pneumococcal Conjugate Vacci ne, 20-valent ([id number]) 05/09/2022 Pneumococcal Polysaccharide PPV23 (Pneumovax) 12/18/2017 Seasonal [...] encounter Miscellaneous Notes * Telephone Encounter - Pepe Machuca [facility] - 10/16/2023 5:31 PM EDTSigned Prescriptions: Disp Refills Levothyroxine Sodium 25 MCG Oral Tablet (L*30 Tab*4 Sig: TAKE ONE TABLET BY MOUTH DAILY *HYPOTHYROIDISM*Authorizing Provider: NIKITA ESTEBAN III User: PEPE MACHUCA documented in this encounter Plan of Treatment Upcoming Encounters Date Type Department Care Team (Late st Contact Info) Description 11/05/2023 8:30 AM EDT Laboratory Laboratory, [place] [address] [place] [address] Deng Palma [address] [id number] 12/17/2023 10:15 AM EDT Office Visit Urology, [address] [place] [address] Chay Kelly MD [address] [place] [address] 12/19/2023 8:00 AM EDT Office Visit [facility] [address] [facility] [place] [address] Nikita Esteban III, MD [address] [facility] [place] [address] 01/12/2024 1:00 PM EDT Hospital Encounter ENDO [facility], Endoscopy Room [facility] [address] [place] [phone] Kristin Quinn DO [address] [place] [address] 01/12/2024 1:00 PM EDT - 01/12/2024 1:30 PM EDT Surgery ENDO [facility], Endoscopy Room [facility] [address] [place] [phone] Kristin Quinn DO [address] [place] [address] COLONOSCOPY FLEXIBLE PROXIMAL DIAGNOSTIC 02/06/2024 9:00 AM EST Office Visit [facility] [address] [facility] [place] [address] Nikita Esteban III, MD [facility] [place] [address] 02/17/2024 9:00 AM EST Office Visit Neurology [facility] [place] [address] [place] [address] Dona Granados PA-C [address] [place] [address] Scheduled Procedures Name Priority Associated Diagnoses Date/Ti [...] filedocumented as of this encounter Care Teams Laser Set Up Operator Relationship Specialty Start Date End Date Nikita Esteban III, MD [address] [facility] [place] [address] PCP - General 01/26/01 documented as of this encounter
--- OUTSIDE RECORDS SUMMARY | 2024-02-10 12:42 | External Medical Summary | Summary of Care ---
Author Name Unknown Organization [facility] Address [address] [place] [address] Phone [phone] Care Team Providers Care Air Compressor Mechanic Name Role Phone Michelle GUPTA MD, Deonte Mays Primary Care Provider [phone] Reason for Visit * Reason Comments Outpatient Testing Encounter Details Date Type Department Care Team (Late st Contact Info) Description 09/10/2023 8:30 AM EDT Laboratory Laboratory, [place] [address] [place] [address] [facility] [address] [place] [address] Encounter for long-term (current) use of other medications Allergies Active Allergy Reactions Criticality Noted Date Comments Penicillins Unknown 04/18/2000 documented as of this encounter (statuses as of 09/10/2023) Medications Medication Sig Dispensed Refills Start Date [...] Patch topically on the skin daily. Active DwllrTouch Verio w/Device Kit Use 1 time daily [...] Additional Information Patient not taking.Reported on 06/19/2023 Lisinopril 20 MG Oral Tablet (Prinivil) TAKE ONE TABLET BY MOUTH DAILY *HTN* 90 Tablet 2 10/15/2022 Active Meloxicam 15 MG Oral Tablet (Mobic)Indications: Chronic bilateral low back pain with right-sided sciatica,Lumbar degenerative disc disease,Facet arthropathy, lumbar TAKE 1 TABLET BY MOUTH ONCE DAILY FOR PAIN, NO OTHER NSAIDS WHILE ON MED, MAY TAKE TYLENOL NEEDED 28 Tablet 4 04/11/2023 Active Levothyroxine Sodium 25 MCG Oral Tablet [...] DAILY *DM* 56 Tablet 4 08/27/2023 Active documented as of this encounter (statuses as of 09/10/2023) Active Problems Problem Noted Date Diagnosed Date [...] as of this encounter (statuses as of 09/10/2023) Resolved Problems Problem Noted Date Diagnosed Date [...] as of this encounter (statuses as of 09/10/2023) Immunizations Name Administration Dates Next Due COVID-19 mRNA, LNP-s, No Pre serve, 2-Dose Series ([employer]) 01/09/2021,04/27/2020,04/06/2020 H1N1 2009 Influenza, IM 01/29/2009 Hepatitis B, 20+ yrs 05/21/2011 PPD 11/09/2013,05/21/2011 Pneumococcal Conjugate Vacci ne, 20-valent ([id number]) 05/09/2022 Pneumococcal Polysaccharide PPV23 (Pneumovax) 12/18/2017 Seasonal [...] 12/17/2023 10:15 AM EDT Office Visit Urology, [facility] [address] [place] [address] Chay Kelly MD [address] [address] [place] [address] 12/19/2023 8:00 AM EDT Office Visit Family Practice [facility] [address] [facility] [place] [address] Deonte Martinez III, MD [address] [facility] [place] [address] 01/12/2024 1:00 PM EDT Hospital Encounter ENDO [facility], Endoscopy Room [facility] [address] [place] [phone] Kristin Quinn DO [address] [place] [address] 01/12/2024 1:00 PM EDT - 01/12/2024 1:30 PM EDT Surgery ENDO [facility], Endoscopy Room [facility] [address] [place] [phone] Kristin Quinn DO [address] [place] [address] COLONOSCOPY FLEXIBLE PROXIMAL DIAGNOSTIC 02/06/2024 9:00 AM EST Office Visit Family Practice [facility] [address] [facility] [place] [address] Deonte Martinez III, MD [address] [facility] [place] [address] 02/17/2024 9:00 AM EST Office Visit Neurology [facility] [place] [address] [facility] [place] [address] Dona Granados PA-C [address] [place] [address] [address] Pending Results Name Type Priority Associated Diagnoses Date /Time CBC WITH WBC DIFFERENTIAL Lab Routine Encounter for long-term (current) use of other medications 09/10/2023 7:56 AM EDT CBC Lab Routine Encounter for long-term (current) use of other medications 09/10/2023 7:56 AM EDT DIFFERENTIAL, AUTOMATED Lab Routine Encounter for long-term (current) use of other medications 09/10/2023 7:56 AM EDT Scheduled Procedures Name Priority Associated [...] 10/17/2023 023, 08/08/2021, 06/30/2018, Additional history exists HbA1c 12/19/2023 06/19/2023, 12/16, [...] Tdap) 02/12/2031 02/12/2021, 05/29/2010, 05/13/2000 Hepatitis B Completed 05/21/2011, 11/15, 10/21/2001 Pneumococcal Vaccine: 65+ Years Completed 05/09/2022, 12/18/2017 Influenza Vaccine (FLU shot) Completed 04/2022, 11/30/2020, 01/03/2020, Additional history exists GARDASIL-HPV IMMUNIZATION SERIES Aged Out No longer eligible based on [...] colon documented in this encounter Care Teams Air Compressor Mechanic Relationship Specialty Start Date End Date Deonte Martinez III, MD [address] [place] [address] PCP - General 01/26/01 documented as of this encounter
--- OUTSIDE RECORDS SUMMARY | 2024-02-10 12:42 | External Medical Summary | Summary of Care ---
Author Name Unknown Organization [facility] Address [address] [place] [address] Phone [phone] Care Team Providers Care Veterinary Parasitologist Name Role Phone Michelle GUPTA MD, Deonte Mays Primary Care Provider [phone] Reason for Visit * Reason Comments Outpatient Testing Encounter Details Date Type Department Care Team (Late st Contact Info) Description 10/15/2023 8:30 AM EDT Laboratory Laboratory, [place] [address] [place] [address] [facility] [address] [place] [address] Encounter for long-term (current) use of other medications Allergies Active Allergy Reactions Criticality Noted Date Comments Penicillins Unknown 04/18/2000 documented as of this encounter (statuses as of 10/15/2023) Medications Medication Sig Dispensed Refills Start Date [...] Patch topically on the skin daily. Active Gextech HoldingsTouch Verio w/Device Kit Use 1 time daily [...] TYLENOL NEEDED 28 Tablet 5 09/23/2023 Active documented as of this encounter (statuses as of 10/15/2023) Active Problems Problem Noted Date Diagnosed Date [...] as of this encounter (statuses as of 10/15/2023) Resolved Problems Problem Noted Date Diagnosed Date [...] as of this encounter (statuses as of 10/15/2023) Immunizations Name Administration Dates Next Due COVID-19 mRNA, LNP-s, No Pre serve, 2-Dose Series ([employer]) 01/09/2021,04/27/2020,04/06/2020 H1N1 2009 Influenza, IM 01/29/2009 Hepatitis B, 20+ yrs 05/21/2011 PPD 11/09/2013,05/21/2011 Pneumococcal Conjugate Vacci ne, 20-valent ([id number]) 05/09/2022 Pneumococcal Polysaccharide PPV23 (Pneumovax) 12/18/2017 Seasonal [...] Description 11/05/2023 8:30 AM EDT Laboratory Laboratory, [place] [address] [place] [address] [facility] [address] [place] [address] 12/17/2023 10:15 AM EDT Office Visit Urology, [facility] [address] [facility] [place] [address] Chay Kelly MD [address] [place] [address] 12/19/2023 8:00 AM EDT Office Visit Family Practice [facility] [address] [place] [address] Deonte Martinez III, MD [address] [place] [address] 01/12/2024 1:00 PM EDT Hospital Encounter ENDO [facility], Endoscopy Room [facility] [address] [place] [phone] Kristin Quinn DO [address] [place] [address] 01/12/2024 1:00 PM EDT - 01/12/2024 1:30 PM EDT Surgery ENDO [facility], Endoscopy Room [facility] [address] [place] [phone] Kristin Quinn DO [address] [place] [address] COLONOSCOPY FLEXIBLE PROXIMAL DIAGNOSTIC 02/06/2024 9:00 AM EST Office Visit Family Practice [facility] [address] [place] [address] Deonte Martinez III, MD [address] [place] [address] 02/17/2024 9:00 AM EST Office Visit Neurology [facility] [address] [place] [address] Dona Granados PA-C [address] [place] [address] Pending Results Name Type Priority Associated Diagnoses Date /Time CBC WITH WBC DIFFERENTIAL Lab Routine Encounter for long-term (current) use of other medications 10/15/2023 7:46 AM EDT CBC Lab Routine Encounter for long-term (current) use of other medications 10/15/2023 7:46 AM EDT DIFFERENTIAL, AUTOMATED Lab Routine Encounter for long-term (current) use of other medications 10/15/2023 7:46 AM EDT Scheduled Procedures Name Priority Associated Diagnoses Date/Ti me COLONOSCOPY FLEXIBLE PROXIMAL DIAGNOSTIC Recall Screen for colon cancer 01/12/2024 1:00 PM EDT Health Maintenance Due Date Last Done Comments Alpha-1 Antitrypsin 06/12/1975 Cologuard 2002 Fecal Occult Blood Test 2002 Sigmoidoscopy 2002 Zoster Vaccines (1 of 2) 06/12/2007 Depression Screening 05/29/2021 05/29/2020, 10/29/2017 (Discussed) COVID-19 Vaccine ( season) 2022 01/09/2021, 04/27/2020, 04/06/2020 *COPD SEVERITY VERIFIED BY PFT 09/28/2023 *CXR OR CT FOR COPD EVER 09/28/2023 Albumin/Creatinine Ratio 10/17/2023 023, 08/08/2021, 06/30/2018, Additional history exists Influenza Vaccine (FLU shot) (#1) 2023 12/16/2022, 11/30/2020, 01/03/2020, Additional history exists HbA1c 12/19/2023 06/19/2023, 12/16, 05/22/2022, Additional history exists B-12 01/09/2024 01/08/2023, 07/17, 07/25/2021, Additional history exists Diabetic Foot Exam 02/05/2024 02/04/2023, 1 , 10/27/2018, Additional history exists Diabetic Eye Exam 04/17/2024 04/17/2023, (Done elsewhere), 10/03/2021, Additional history exists GFR 06/18/2024 06/19/2023, 03/0 10/2022, 07/25/2021, Additional history exists O2 ASSESSMENT [...] Hepatitis B Vaccine Completed 05/21/2011, 12/02/2001, 10/21/2001 Hepatitis C Screening Completed 11/29/2015 Pneumococcal Vaccine: 65+ Years Completed 05/09/2022, 12/18/2017 [...] colon documented in this encounter Care Teams Veterinary Parasitologist Relationship Specialty Start Date End Date Deonte Martinez III, MD 200 [place] [place] [address] PCP - General 01/26/01 documented as of this encounter
--- OUTSIDE RECORDS SUMMARY | 2024-02-10 12:42 | External Medical Summary | Summary of Care ---
Author Name Unknown Organization [facility] Address [address] [place] [address] Phone [phone] Care Team Providers Care Electric Pile Driver Operator Name Role Phone Michelle GUPTA MD, Nikita Mays Primary Care Provider [phone] Reason for Visit * Reason Comments eRx-Medication Refill Encounter Details Date Type Department Care Team ([facility] Contact Info) Description 08/26/2023 Refill Family Practice [facility] [address] [facility] [place] [address] Nikita Esteban III, MD [address] [place] [address] Allergies Active Allergy Reactions Criticality Noted Date Comments Penicillins Unknown 04/18/2000 documented as of this encounter (statuses as of 08/27/2023) Medications Medication Sig Dispensed Refills Start Date [...] 10/15/2022 Active Meloxicam 15 MG Oral Tablet (Mobic)Indication [...] DAILY *DM* 56 Tablet 4 08/27/2023 Active Tamsulosin HCl 0.4 MG Oral Capsule (Flomax) TAKE ONE CAPSULE BY MOUTH ONCE DAILY TO STRENGTHEN URINARY STREAM 28 Capsule 10 03/12/2023 08/27/19 24 Discontinued metFORMIN HCl 1000 MG Oral Tablet (Glucophage) TAKE ONE TABLET BY MOUTH TWICE DAILY *DM* 56 Tablet 10 03/12/2023 08/27/19 24 Discontinued documented as of this encounter (statuses as of 08/27/2023) Active Problems Problem Noted Date Diagnosed Date [...] as of this encounter (statuses as of 08/27/2023) Resolved Problems Problem Noted Date Diagnosed Date [...] as of this encounter (statuses as of 08/27/2023) Immunizations Name Administration Dates Next Due COVID-19 mRNA, LNP-s, No Pre serve, 2-Dose Series ([employer]) 01/09/2021,04/27/2020,04/06/2020 H1N1 2009 Influenza, IM 01/29/2009 Hepatitis B, 20+ yrs 05/21/2011 PPD 11/09/2013,05/21/2011 Pneumococcal Conjugate Vacci ne, 20-valent ([id number]) 05/09/2022 Pneumococcal Polysaccharide PPV23 (Pneumovax) 12/18/2017 Seasonal [...] encounter Miscellaneous Notes * Telephone Encounter - Andi Arroyo [facility] - 08/27/2023 1:00 PM EDT Signed Prescriptions: Disp Refills Tamsulosin HCl 0.4 MG Oral Capsule (Flomax)28 Cap*4 Sig: TAKE ONE CAPSULE BY MOUTH ONCE DAILY TO STRENGTHEN URINARY STREAMAuthorizing Provider: NIKITA ESTEBAN III User: ANDI ARROYO metFORMIN HCl 1000 MG Oral Tablet (Glucoph*56 Tab*4 Sig: TAKE ONE TABLET BY MOUTH TWICE DAILY *DM*Authorizing Provider: NIKITA ESTEBAN III User: ANDI ARROYO documented in this encounter Plan of Treatment Upcoming Encounters Date Type Department Care Team (Late st Contact Info) Description 09/10/2023 8:30 AM EDT Laboratory Laboratory, [address] [address] [facility] [address] [place] [facility] [place] [address] 12/17/2023 10:15 AM EDT Office Visit Urology, [facility] [address] [facility] [place] [address] Chay Kelly MD [address] [place] [address] 12/19/2023 8:00 AM EDT Office Visit [facility] [address] [place] [address] Nikita Esteban III, MD [address] [place] [address] 01/12/2024 1:00 PM EDT Hospital Encounter ENDO OSS, Endoscopy Room [facility] [address] [place] [phone] Kristin Quinn DO [address] [place] [address] 01/12/2024 1:00 PM EDT - 01/12/2024 1:30 PM EDT Surgery ENDO [facility], Endoscopy Room [facility] [address] [place] [phone] Kristin Quinn DO [address] [place] [address] COLONOSCOPY FLEXIBLE PROXIMAL DIAGNOSTIC 02/06/2024 9:00 AM EST Office Visit [facility] [address] [place] [address] Nikita Esteban III, MD [address] [place] [address] 02/17/2024 9:00 AM EST Office Visit Neurology [facility] [address] [place] [address] Dona Granados PA-C [address] [address] Scheduled Procedures Name Priority Associated Diagnoses Date/Ti [...] filedocumented as of this encounter Care Teams Electric Pile Driver Operator Relationship Specialty Start Date End Date Nikita Esteban III, MD [address] [place] [address] PCP - General 01/26/01 documented as of this encounter
--- OUTSIDE RECORDS SUMMARY | 2024-02-10 12:42 | External Medical Summary ---
Author Name Unknown Address Unknown Organization [id number]:LABORATORY [facility] - [address] [place] [address] Laboratory Report Ordering Provider Test Date Status ZORAN BANGURA 10/15/2023 07:46:00 Final Please call [phone] Ext ension 3200 for any high alert lab results. Observation Date Value Abnormality Reference (Units ) Status WBC, Total 10/15/2023 07:46:00 9.36 4.00-10.80 (K/uL) Final RBC 10/15/2023 07:46:00 4.44 4.50-5.25 (M/uL) Final Hemoglobin 10/15/2023 07:46:00 13.5 Below low normal 14.0-16.8 (g/dL) Final HCT 10/15/2023 07:46:00 41.8 40.0-48.4 (%) Final MCV 10/15/2023 07:46:00 94.1 82.0-99.5 (fL) Final MCH 10/15/2023 07:46:00 30.4 27.0-34.0 (pg) Final MCHC 10/15/2023 07:46:00 32.3 32.0-36.0 (g/dL) Final RDW 10/15/2023 07:46:00 13.5 11.5-15.5 (%) Final Platelets 10/15/2023 07:46:00 189 140-400 (K/uL) Final MPV 10/15/2023 07:46:00 12.0 6.6-11.1 (fL) Final Nucleated erythrocytes/100 leukocytes [Ratio] in Blood by Automated count 10/15/2023 07:46:00 0 <=0 (/100 WBCs) Final Performing Location LAB[facility]ATORY [facility] - [address] [place] [address]
[2024-02-10] MEDS ORDERED: MAGNESIUM HYDROXIDE SUSP 30 ML UDC PO PRN (13:44)
[2024-02-10] MEDS ORDERED: ACETAMINOPHEN 325 MG TAB PO PRN ×2 (13:44→14:32)
[2024-02-10] MEDS ORDERED: ALUMINUM/MAGNESIUM SUSP 30 ML UDC PO PRN (13:44)
[2024-02-10] MEDS ORDERED: SODIUM CHLORIDE 0.65% NA SOLN 45 ML (OCEAN) PRN (13:44)
[2024-02-10] MEDS ORDERED: hydrOXYzine HCl 25 MG TAB PO PRN ×2 (13:44)
[2024-02-10] MEDS ORDERED: BISMUTH SUBSALICYLATE 262 MG CHEW PO PRN (13:44)
[2024-02-10] MEDS ORDERED: POLYETHYLENE (MIRALAX) 17 GM PACK PO PRN (14:32)
[2024-02-10] MEDS ORDERED: ALBUTEROL HFA 8 GM INHALER INH PRN (14:32)
[2024-02-10] MEDS ORDERED: LORazepam 1 MG TAB PO PRN (14:40)
[2024-02-10] MEDS: clonazePAM 1 MG TAB PO PRN (15:09)
[2024-02-10] MEDS: OLANZapine ZYDIS 5 MG ORALLY DIS. TAB PO PRN (15:09)
[2024-02-10] MEDS: POTASSIUM CHLORIDE CRTAB 20 MEQ TABCR PO STA (16:18)
[2024-02-10] MEDS: BENZTROPINE MESYLATE 1 MG TAB PO PRN (17:05)
--- NOTE | 2024-02-10 18:24 | Electrocardiogram Report ---
Test Reason : Blood Pressure : */* mmHG Vent. Rate : 74 BPM Atrial Rate : 74 BPM P-R Int : 166 ms QRS Dur : 88 ms QT Int : 414 ms P-R-T Axes : 56 61 18 degrees QTcB Int : 459 ms Sinus rhythm with occasional Premature ventricular complexes and Premature atrial complexes Nonspecific T wave abnormality Abnormal ECG When compared with ECG of 19-Jan-2022 23:30, Premature ventricular complexes are now Present Premature atrial complexes are now Present Confirmed by Rich Leroy ([id number]) on 02/10/2024 6:24:25 PM Referred By: [facility] Confirmed By: Rich Leroy
[2024-02-10] MEDS ORDERED: ATORVASTATIN 40 MG TAB PO SCH (21:00)
[2024-02-10] MEDS ORDERED: BENZTROPINE MESYLATE 1 MG TAB PO SCH (21:00)
[2024-02-10] MEDS: TOPIRAMATE 50 MG TAB PO SCH (21:18)
[2024-02-10] MEDS: PARoxetine HCL 10 MG TAB PO SCH (21:19)
[2024-02-10] MEDS: cloZAPine 25 MG TAB PO SCH (21:20)
[2024-02-10] MEDS: ATORVASTATIN 40 MG TAB PO SCH (21:20)
[2024-02-10] MEDS: clonazePAM 1 MG TAB PO SCH (21:22)
[2024-02-11] MEDS: LEVOTHYROXINE SODIUM 25 MCG TABLET PO SCH (08:35)
[2024-02-11] MEDS: lisinopril 20 MG TAB PO SCH (08:36)
[2024-02-11] MEDS: CHOLECALCIFEROL 25 MCG (1000 UNITS) TAB PO SCH (08:36)
[2024-02-11] MEDS: MULTIVITAMIN TAB PO SCH (08:36)
[2024-02-11] MEDS: MELOXICAM 7.5 MG TAB PO SCH (08:36)
[2024-02-11] MEDS: NICOTINE 21 MG/24 HR TDSY TD SCH (08:36)
--- NOTE | 2024-02-11 08:36 | History & Physical ---
Date of Service February 11, 2024 Impression / Recommendations Impression REBA KELLY is a 68 year-old man who currently lives in [facility], has a history of schizophrenia, and was admitted on 02/10/24 12:45 on a 201 voluntary commitment for acute psychosis with poor sleep and feeling unsafe at his supportive living home. Diagnostically consistent with acute exacerbation of schizophrenia vs schizoaffective disorder in the context of medication non-adherence. Timeline for clozapine discontinuation varies, collateral reports last taken about one week ago, Reba states he only missed one dose. Given his thought blocking, loosening of associations and worsened psychosis, trust collateral that timeline likely closer to one week. Given this will retitrate clozapine which he is agreeable to. ANC reviewed and stable. Discussed medication treatment options in detail. Discussed risks, benefits and alternatives. He consented to restarting clozapine and his prior to admission medications including clonazepam and Paxil. Reviewed side effects including but not limited to: QTc changes with Paxil given he is above FDA maximum recommended dose but has been stable on this for a long time and EKG with QTc < 500ms reviewed with ED provider so felt to resonable to continue with this, movement (TD, NMS), cardiac (QTc prolongation), and metabolic (stroke, insulin resistance) and necessity for fasting lipid and glucose labwork and AIMS done with score of 3. MNPR due to acute psychosis with bizarre movements and shouting intermittently that are disruptive to others Overall I spent a total of 75 minutes for this admission including review of chart records, review of labwork, direct evaluation of the patient, counseling the patient, ordering medication, risk assessment, discussion with the psychiatric liason RN and documentation in the electronic health record. (1) Psychosis: (2) Schizophrenia: (3) Hypertension: (4) Hyperlipidemia: Plan 02/11/2024: The patient was admitted to the [facility] ([facility] mental health unit) on q15 min checks (behavioral with suicide precautions) for safety. The patient will participate in group, recreational, and milieu therapies and will be offered additional individual and family sessions as clinically appropriate. -Restart clozapine, will titrate given discontinuation of at least one week. Start 50mg HS po -Fasting HbA1c and lipid panel tomorrow AM, Vit D, Vit B12 -Continue prior to admission Paxil 30mg BID (seems he has been adherent with this) -Restart Klonopin 1mg qPM (may consider dose reduction if signs of increased sedation) -Continue Klonopin 1mg daily prn for anxiety/restlessness -Olanzapine 5mg po BID ODT for agitation/psychosis -Cogentin prn for muscle stiffness Inventory Assets Strengths: supportive relationships, willing to get treatment Needs: safety and stabilization, medication adjustment, additional coping skills, increased outpatient services Suicide Risk Level Suicide Risk Level: Moderate (q15 min suicide checks) (denies SI but with acute psychosis and responding to internal stimuli, feels safe in the hospital, feels able to call out to staff) Risk Factors Assessment Male: Yes : Yes Do You Have Access To A Gun?: No Health Problems: Yes Mental Health Diagnoses: Yes Substance Use Disorders: No Previous Attempt: No Family History of Suicide: No Previous Psychiatric Hospitalization: Yes Hopelessness: No Protective Factors Assessment Employed: No Good Rapport with Provider: Yes Psychiatric History Identifying Data REBA KELLY is a 68-year-old man who currently lives in [facility], has a history of schizophrenia, and was admitted on 02/10/24 12:45 on a 201 voluntary commitment for acute psychosis with poor sleep and feeling unsafe at his supportive living home. Chief Complaint "I like to go by Armen, I believe God would like people to call me that". History of Present Illness Bhanu was brought to the emergency department from [facility] due to concerns for worsening psychosis, decreased sleep and uatsdin preoccupation after starting to refuse his psychiatric medications in mid-January. He has been thrashing about in bed, yelling out intermittently, asks to be called Armen. He is not a good historian, collateral from his supportive living environment noted that he reported the TV told him recently not to take his medications and thus stopping taking these. Tells me he thinks he stopped his clozapine because it can make him groggy but he's agreeable to restarting this. He isn't sure why he stopped the Klonopin but agrees he did. Often responds to questions with "I don't know". Asked about hallucinations reports "I don't want to elaborate on that". Tells me he doesn't want to return to [facility] as "I'm fed up with the place, that's all I can say" and that he likes his roommates and the staff but not the "attitude of the place". Denies having a telephonic nurse case manager and declines interest in this. Tells me he has been "having a few difficulties I think, I guess we'll find out if the treatment works". Thinks he slept a little more last night but recalls waking up early. Per collateral has been psychiatrically stable for quite some time on his outpatient psychiatric medication regimen which includes: clozapine 200mg HS, Klonopin 1mg PM, Paxil 30mg BID and Cogentin prn. Further information per ED CM note on 02/10/2024: "Pt lives at [facility] in supportive living. Spoke to Marion who cares for Reba. She reports that he is diagnosed with schizophrenia and has been stable for many years. Recently he stopped taking some of his medications, Marion knows he stopped his 4 pm does of Clonazepam but thinks there may be others he is not taking. Pt has been making statements such as, I am a sinner, I am damned. I have sinned against God. Marion reports that he has not been sleeping and his speech has been pressured. Last night he was asking to come to the hospital for a few days. Pt has no hx of aggression. Marion came to the ER and I met with her and the patient. Pt reported that he stopped taking his Clozaril about a week ago. Pt is able to understand that is why he is not doing well now. He reports that he will take medications if he is admitted to a psychiatric facility. Pt is able to participate in conversation and answer questions asked. He states my thoughts are all jumbled. He reports he does not feel safe going back to [facility] until he gets inpatient treatment to help him become more stable. Pt sees Haley at [facility] for Psychiatric care. His PCP is Christel Carvajal. Pt has no other providers. He is willing to sign himself in for treatment." Past Psychiatric History Current Psychiatric Diagnosis: Schizophrenia Outpatient Services: [facility] for psychiatry with Haley Mazariegos Previous Psych Admissions: multiple in the past but has been stable in recent years hx [facility] Baxter, [facility], [facility] Do You Have Access To A Gun?: No History of Previous Suicide Attempt: No Past Medication Trials: reports recalling various antipsychotics when I list these, denies any prior allergic reactions or bad responses but states he doesn't find them to be "good meds" Past Head Trauma/Neuro History History of Concussion/Seizure: Yes (reportedly hx of seziure in the past) Allergies Allergy/AdvReac Type Severity Reaction Status Date / Time Penicillins Allergy Intermediate nausea/vomi Verified 12/21/20 22:47 ting Home Medications Medication Instructions Recorded Confirmed Type atorvastatin 40 mg tablet 40 mg PO HS 04/19/18 02/10/24 History benztropine 1 mg tablet 1 mg PO BID panic attacks 04/19/18 02/10/24 History cholecalciferol (vitamin D3) 50 2,000 unit PO QAM 04/19/18 02/10/24 History mcg (2,000 unit) capsule (Vitamin D3) clonazepam 1 mg tablet 1 mg PO PM 04/19/18 02/10/24 History clozapine 200 mg tablet 200 mg PO HS 04/19/18 02/10/24 History levothyroxine 25 mcg tablet 25 mcg PO QAM 04/19/18 02/10/24 History metformin 1,000 mg tablet 1,000 mg PO BID17 04/19/18 02/10/24 History paroxetine HCl 30 mg tablet 30 mg PO BID 04/19/18 02/10/24 History polyethylene glycol 3350 17 gram 17 g PO BID PRN Constipation 04/19/18 02/10/24 History oral powder packet (Miralax) tamsulosin 0.4 mg capsule 0.4 mg PO QAM 04/19/18 02/10/24 History multivitamin (Daily-Izaiah tablet) 1 tab PO DAILY 06/13/19 02/10/24 History acetaminophen 325 mg tablet 650 mg PO Q4 PRN Pain, Moderate 12/07/20 02/10/24 History lisinopril 20 mg tablet 20 mg PO DAILY 12/07/20 02/10/24 History umeclidinium 62.5 mcg-vilanterol 1 ea inhalation DAILY 12/07/20 02/10/24 History 25 mcg/actuation powdr for inhalation (Anoro Ellipta) albuterol sulfate 90 mcg/actuation 2 puffs inhalation Q6H PRN Wheezing 02/10/24 02/10/24 History aerosol inhaler cholecalciferol (vitamin D3) 50 50 mcg PO DAILY 02/10/24 02/10/24 History mcg (2,000 unit) tablet (Vitamin D3) clonazepam 1 mg tablet 1 mg PO DAILY PRN Anxiety 02/10/24 02/10/24 History meloxicam 15 mg tablet 15 mg PO DAILY pain 02/10/24 02/10/24 History nicotine 21 mg/24 hr daily 21 mg transdermal DAILY 02/10/24 02/10/24 History transdermal patch topiramate 50 mg tablet 50 mg PO BID 02/10/24 02/10/24 History Family History Family History of: Doesn't Know Alcohol History Hx of Alcohol Use Over the Past 12 Months: No Smoking Use Have You Smoked or Used Tobacco Products in the Last 30 Days: No Smoking Status: Never smoker Substance History Hx of Prescription Med Misuse Over the Past 12 Months: No Hx of Over the Counter Med Misuse Over the Past 12 Months: No Hx of Inhalent Misuse Over the Past 12 Months: No Hx of Organic Substance Use Over the Past 12 Months: No Hx of Illegal Substances/Street Drug Use Over Past 12 Months: No Problems as a Result of Past Substance Use: None Identified Personal History Living Arrangements: supportive living Highest Grade Completed: High School Graduate Employment Status: Disabled Beliefs That Will Affect Care: None Patient History Medical History Hyperlipidemia Morbid obesity Type 2 diabetes mellitus Hypertension Schizophrenia Seizures Family History Other Family history non-contributory Social History Smoking Status: Never smoker Tobacco Type: Smokeless Tobacco (Dip or Chew) Preferred Language: Croatian Communication Ability: Effective Preventive Medicine Physician Required: No Beliefs That Will Affect Care: None current occupational status: employed Feels Safe at Home: Yes Gender Identity: Male Assistive Devices: Walker Review of Systems Review of Systems: All systems reviewed & are unremarkable except as noted in HPI & below (reports some neck and low back pain, had nausea after breakfast thi s morning but this has resolved ) Physical Exam Psychiatric: Orientation: alert, oriented to person and oriented to place Apperance: appropriately dressed and + disheveled Eye Contact: + fair eye contact Motor Behavior: + psychomotor agitation (screaming out and thrashing in bed at times) and + EPS (evidence for TD-lip movements, neck movement) Speech: + loud speech; + abnormal rate/rhythm/volume of speech Affect: + labile affect Mood: + anxious mood Thought Process: + thought blocking and + looseness of associations Thought Content: + paranoid, + delusions and + thought broadcasting Suicidal Thoughts: denies suicidal thoughts Homicidal Thoughts: denies homicidal thoughts Hallucinations: + auditory hallucinations (seems to be likely responding to stimuli); no visual hallucinations C ognition: recent memory grossly intact, remote memory grossly intact and language grossly intact; + attention not intact Insight: + limited insight Judgment: + poor judgement Vital Signs (Past 24 Hours): Last Vital Signs Temp 36.7 C 02/10/24 13:48 Pulse 88 02/11/24 06:43 Resp 16 02/11/24 06:43 BP 151/77 H 02/11/24 06:45 Pulse Ox 96 02/11/24 06:43 O2 Del Method Room Air 02/11/24 06:43 Exam Statement: A physical exam was performed in the ED by Dr. Villarreal for the purposes of medical clearance. I accept that physical as correct and adequate for the purposes of the inpatient physical exam. Results & Data ([facility]) Current Inpatient Medications Current Inpatient Medications: Current Inpatient Medications Acetaminophen (Acetaminophen 325 Mg Tab) 650 mg PO Q4H PRN PRN Reason: Headache or Minor Fever Stop: 03/11/24 13:43 Al Hydrox/Mg Hydrox/Simethicone (Aluminum/Magnesium Susp 30 Ml Udc) 30 ml PO Q4H PRN PRN Reason: GI Upset Stop: 03/11/24 13:43 Albuterol (Albuterol Hfa 8 Gm Inhaler) 2 puffs INH Q6H PRN PRN Reason: Wheezing Stop: 03/11/24 14:31 Atorvastatin Calcium (Atorvastatin 40 Mg Tab) 40 mg PO HS [facility] Stop: 03/11/24 21:59 Last Admin: 02/10/24 21:20 Dose: 40 mg Benztropine Mesylate (Benztropine Mesylate 1 Mg Tab) 1 mg PO BID PRN PRN Reason: muscle stiffness/EPS Stop: 03/11/24 20:59 Last Admin: 02/10/24 17:05 Dose: 1 mg Bismuth Subsalicylate (Bismuth Subsalicylate 262 Mg Chew) 2 tab PO Q30M PRN PRN Reason: Loose Stool/Diarrhea Stop: 03/11/24 13:43 Clonazepam (Clonazepam 1 Mg Tab) 1 mg PO PM [facility] Stop: 03/11/24 20:59 Last Admin: 02/10/24 21:22 Dose: 1 mg Clonazepam (Clonazepam 1 Mg Tab) 1 mg PO DAILY PRN PRN Reason: Anxiety Stop: 03/11/24 14:31 Last Admin: 02/11/24 06:19 Dose: 1 mg Clozapine (Clozapine 25 Mg Tab) 50 mg PO HS [facility]ATRICE; Protocol Stop: 03/11/24 21:59 Last Admin: 02/10/24 21:20 Dose: 50 mg Hydroxyzine HCl (Hydroxyzine Hcl 25 Mg Tab) 50 mg PO HSZ PRN PRN Reason: Insomnia Stop: 03/11/24 13:43 Hydroxyzine HCl (Hydroxyzine Hcl 25 Mg Tab) 25 mg PO Q4H PRN PRN Reason: Anxiety Stop: 03/11/24 13:43 Levothyroxine Sodium (Levothyroxine Sodium 25 Mcg Tablet) 25 mcg PO DAILYBB [facility] Stop: 03/12/24 07:59 Lisinopril (Lisinopril 20 Mg Tab) 20 mg PO QAM [facility] Stop: 03/12/24 08:59 Lorazepam (Lorazepam 1 Mg Tab) 1 mg PO TID PRN PRN Reason: Anxiety/Agitation Stop: 03/11/24 14:39 Magnesium Hydroxide (Magnesium Hydroxide Susp 30 Ml Udc) 30 ml PO DAILY PRN PRN Reason: Constipation Stop: 03/11/24 13:43 Meloxicam (Meloxicam 7.5 Mg Tab) 15 mg PO DAILY [facility] Stop: 03/12/24 08:59 Metformin HCl (Metformin Hcl 500 Mg Tab) 1,000 mg PO BID17 [facility] Stop: 03/11/24 16:59 Last Admin: 02/10/24 17:23 Dose: 1,000 mg Miscellaneous (Remove Nicoderm Patch) 1 each N/A DAILY@0859 [facility] Stop: 03/12/24 08:58 Multivitamins (Multivitamin Tab) 1 tab PO DAILY [facility] Stop: 03/12/24 08:59 Nicotine (Nicotine 21 Mg/24 Hr Tdsy) 1 patch TD DAILY [facility] Stop: 03/12/24 08:59 Olanzapine (Olanzapine Zydis 5 Mg Orally Dis. Tab) 5 mg PO BID PRN PRN Reason: paranoia/psychosis Stop: 03/11/24 20:59 Last Admin: 02/10/24 15:09 Dose: 5 mg Paroxetine HCl (Paroxetine Hcl 10 Mg Tab) 30 mg PO BID [facility] Stop: 03/11/24 20:59 Last Admin: 02/10/24 21:19 Dose: 30 mg Polyethylene Glycol (Polyethylene (Miralax) 17 Gm Pack) 17 gm PO BID PRN PRN Reason: Constipation Stop: 03/11/24 14:31 Sodium Chloride (Sodium Chloride 0.65% Na Soln 45 Ml ([place])) 1 - 2 sprays NA PRN PRN PRN Reason: Nasal Dryness/Congestion Stop: 03/11/24 13:43 Tamsulosin HCl (Tamsulosin Hcl 0.4 Mg Cap) 0.4 mg PO QAM [facility] Stop: 03/12/24 08:59 Topiramate (Topiramate 50 Mg Tab) 50 mg PO BID [facility] Stop: 03/11/24 20:59 Last Admin: 02/10/24 21:18 Dose: 50 mg Umeclidinium/Vilanterol (Umeclidinium/Vilanterol 62.5/25mcg 7 Puffs/Inhaler) 1 puffs INH DAILY [facility] Stop: 03/12/24 08:59 Vitamin D (Cholecalciferol 25 Mcg (1000 Units) Tab) 50 mcg PO DAILY [facility] Stop: 03/12/24 08:59
[2024-02-11] MEDS: TAMSULOSIN HCL 0.4 MG CAP PO SCH (08:37)
[2024-02-11] MEDS: UMECLIDINIUM/VILANTEROL 62.5/25MCG 7 PUFFS/INHALER INH SCH (08:39)
[2024-02-11] MEDS ORDERED: CHOLECALCIFEROL 25 MCG (1000 UNITS) TAB PO SCH (09:00)
[2024-02-11] MEDS ORDERED: ONDANSETRON 4 MG OD TAB PO PRN (09:01)
[2024-02-12 08:41] LABS: Estimated Average Glucose 123 mg/dl; Hemoglobin A1C 5.9 % (4.5-5.6)
[2024-02-12 08:45] LABS: Chol HDL Ratio 3.6 (0-5)
--- NOTE | 2024-02-12 11:08 | Psychiatric Progress Note ---
Date of Service February 12, 2024 Impression / Recommendations Impression REBA KELLY is a 68 year-old man who currently lives in [facility], has a history of schizophrenia, and was admitted on 02/10/24 12:45 on a 201 voluntary commitment for acute psychosis with poor sleep and feeling unsafe at his supportive living home. Diagnostically consistent with acute exacerbation of schizophrenia vs schizoaffective disorder in the context of medication non-adherence. Timeline for clozapine discontinuation varies, collateral reports last taken about one week ago, Reba states he only missed one dose. Given his thought blocking, loosening of associations and worsened psychosis, trust collateral that timeline likely closer to one week. Given this will retitrate clozapine which he is agreeable to. ANC reviewed and stable. A: Ongoing bizarre vocalization and behaviors, but pleasant and cooperative when redirected which suggests likely internal stimuli that he's responding to. Tolerating re-initiation of clozapine, will continue titration which he consents to. Labwork reviewed and notable for HbA1c of 5.9 (consistent with known T2DM diagnosis) and lipid panel, Vit D and Vit B12 normal. MNPR due to acute psychosis with bizarre movements and shouting intermittently that are disruptive to others Overall, I spent a total of 25 minutes on this case including meeting with the patient, reviewing the chart, nursing report, multidisciplinary team meeting, orders, and documentation. (1) Psychosis: (2) Schizophrenia: (3) Hypertension: (4) Hyperlipidemia: Plan 02/12/2024: Increase clozapine to 75mg HS. 02/11/2024: The patient was admitted to the [facility] ([facility] health unit) on q15 min checks (behavioral with suicide precautions) for safety. The patient will participate in group, recreational, and milieu therapies and will be offered additional individual and family sessions as clinically appropriate. -Restart clozapine, will titrate given discontinuation of at least one week. Start 50mg HS po -Fasting HbA1c and lipid panel tomorrow AM, Vit D, Vit B12 -Continue prior to admission Paxil 30mg BID (seems he has been adherent with this) -Restart Klonopin 1mg qPM (may consider dose reduction if signs of increased sedation) -Continue Klonopin 1mg daily prn for anxiety/restlessness -Olanzapine 5mg po BID ODT for agitation/psychosis -Cogentin prn for muscle stiffness Inventory Assets Strengths: supportive relationships, willing to get treatment Needs: safety and stabilization, medication adjustment, additional coping skills, increased outpatient services Suicide Risk Level Suicide Risk Level: Moderate (q15 min suicide checks) (denies SI but with acute psychosis and responding to internal stimuli, feels safe in the hospital, feels able to call out to staff) Risk Factors Assessment Male: Yes : Yes Do You Have Access To A Gun?: No Health Problems: Yes Mental Health Diagnoses: Yes Substance Use Disorders: No Previous Attempt: No Family History of Suicide: No Previous Psychiatric Hospitalization: Yes Hopelessness: No Protective Factors Assessment Employed: No Good Rapport with Provider: Yes Interval History Identifying Information REBA KELLY is a 68-year-old man who currently lives in [facility], has a history of schizophrenia, and was admitted on 02/10/24 12:45 on a 201 voluntary commitment for acute psychosis with poor sleep and feeling unsafe at his supportive living home. Chief Complaint "Doing well". Review of Systems Sleep Information Total Hours of Sleep: 8 Meal Information Percent Meal Consumed - Breakfast: 50 Percent Meal Consumed - Lunch: 50 Percent Meal Consumed - Dinner: 25 Subjective Subjective Patient was seen & assessed and interval progress reviewed with nursing. Continues to call out repeatedly with grunting noises, stops immediately when redirected but then will start doing this unclear. He cannot describe why he is responding in this manner. Slept well overnight. Today reports his mood is "doing well". Denies any medication side effects, agreeable with plan to continue with clozapine titration. Allowed AM bloodwork. Declined breakfast but reports he plans to eat lunch and maybe a snack. Attended community meeting group yesterday. Physical Exam Psychiatric Orientation: alert, oriented to person and oriented to place Apperance: appropriately dressed and + disheveled Eye Contact: + fair eye contact Motor Behavior: + psychomotor agitation (screaming out and thrashing in bed at times) and + EPS (evidence for TD-lip movements, neck movement) Speech: + loud speech; + abnormal rate/rhythm/volume of speech Affect: + labile affect Mood: no depressed mood and no anxious mood Thought Process: + thought blocking and + looseness of associations Thought Content: + paranoid, + delusions and + thought broadcasting Suicidal Thoughts: denies suicidal thoughts Homicidal Thoughts: denies homicidal thoughts Hallucinations: + auditory hallucinations (seems to be likely responding to stimuli); no visual hallucinations Cognition: recent memory grossly intact, remote memory grossly intact and language grossly intact; + attention not intact Insight: + limited insight Judgment: + poor judgement Vital Signs (Past 24 Hours) Last Vital Signs Temp 37 C 02/12/24 06:48 Pulse 82 02/12/24 06:49 Resp 16 02/12/24 06:48 BP 131/81 02/12/24 06:49 Pulse Ox 96 02/11/24 06:43 O2 Del Method Room Air 02/11/24 06:43 Results & Data ([facility]) Laboratory Results Laboratory Results - last 24 hr 02/12/24 08:15 Estimat Average Glucose 123 Hemoglobin A1c 5.9 H Triglycerides 145 Cholesterol 102 LDL Cholesterol, Calc 45 VLDL Cholesterol, Calc 29 HDL Cholesterol 28 Cholesterol/HDL Ratio 3.6 Vitamin B12 218 25-OH Vitamin D Total 42.5 Current Inpatient Medications Current Inpatient Medications: Current Inpatient Medications Acetaminophen (Acetaminophen 325 Mg Tab) 650 mg PO Q4H PRN PRN Reason: Headache or Minor Fever Stop: 03/11/24 13:43 Al Hydrox/Mg Hydrox/Simethicone (Aluminum/Magnesium Susp 30 Ml Udc) 30 ml PO Q4H PRN PRN Reason: GI Upset Stop: 03/11/24 13:43 Albuterol (Albuterol Hfa 8 Gm Inhaler) 2 puffs INH Q6H PRN PRN Reason: Wheezing Stop: 03/11/24 14:31 Atorvastatin Calcium (Atorvastatin 40 Mg Tab) 40 mg PO HS [facility] Stop: 03/11/24 21:59 Last Admin: 02/11/24 20:57 Dose: 40 mg Benztropine Mesylate (Benztropine Mesylate 1 Mg Tab) 1 mg PO BID PRN PRN Reason: muscle stiffness/EPS Stop: 03/11/24 20:59 Last Admin: 02/10/24 17:05 Dose: 1 mg Bismuth Subsalicylate (Bismuth Subsalicylate 262 Mg Chew) 2 tab PO Q30M PRN PRN Reason: Loose Stool/Diarrhea Stop: 03/11/24 13:43 Clonazepam (Clonazepam 1 Mg Tab) 1 mg PO PM [facility] Stop: 03/11/24 20:59 Last Admin: 02/11/24 20:57 Dose: 1 mg Clonazepam (Clonazepam 1 Mg Tab) 1 mg PO DAILY PRN PRN Reason: Anxiety Stop: 03/11/24 14:31 Last Admin: 02/11/24 06:19 Dose: 1 mg Clozapine (Clozapine 25 Mg Tab) 75 mg PO HS [facility]; Protocol Stop: 03/13/24 21:59 Hydroxyzine HCl (Hydroxyzine Hcl 25 Mg Tab) 50 mg PO HSZ PRN PRN Reason: Insomnia Stop: 03/11/24 13:43 Hydroxyzine HCl (Hydroxyzine Hcl 25 Mg Tab) 25 mg PO Q4H PRN PRN Reason: Anxiety Stop: 03/11/24 13:43 Levothyroxine Sodium (Levothyroxine Sodium 25 Mcg Tablet) 25 mcg PO DAILYBB [facility] Stop: 03/12/24 07:59 Last Admin: 02/12/24 08:08 Dose: 25 mcg Lisinopril (Lisinopril 20 Mg Tab) 20 mg PO QAM [facility] Stop: 03/12/24 08:59 Last Admin: 02/12/24 08:09 Dose: 20 mg Lorazepam (Lorazepam 1 Mg Tab) 1 mg PO TID PRN PRN Reason: Anxiety/Agitation Stop: 03/11/24 14:39 Magnesium Hydroxide (Magnesium Hydroxide Susp 30 Ml Udc) 30 ml PO DAILY PRN PRN Reason: Constipation Stop: 03/11/24 13:43 Meloxicam (Meloxicam 7.5 Mg Tab) 15 mg PO DAILY [facility] Stop: 03/12/24 08:59 Last Admin: 02/12/24 08:09 Dose: 15 mg Metformin HCl (Metformin Hcl 500 Mg Tab) 1,000 mg PO BID17 [facility] Stop: 03/11/24 16:59 Last Admin: 02/12/24 08:11 Dose: 1,000 mg Miscellaneous (Remove Nicoderm Patch) 1 each N/A DAILY@0859 [facility] Stop: 03/12/24 08:58 Last Admin: 02/12/24 08:08 Dose: Not Given Multivitamins (Multivitamin Tab) 1 tab PO DAILY [facility] Stop: 03/12/24 08:59 Last Admin: 02/12/24 08:11 Dose: 1 tab Nicotine (Nicotine 21 Mg/24 Hr Tdsy) 1 patch TD DAILY [facility] Stop: 03/12/24 08:59 Last Admin: 02/12/24 08:12 Dose: Not Given Olanzapine (Olanzapine Zydis 5 Mg Orally Dis. Tab) 5 mg PO BID PRN PRN Reason: paranoia/psychosis Stop: 03/11/24 20:59 Last Admin: 02/10/24 15:09 Dose: 5 mg Ondansetron HCl (Ondansetron 4 Mg Od Tab) 4 mg PO Q6H PRN PRN Reason: Nausea Stop: 03/12/24 09:00 Paroxetine HCl (Paroxetine Hcl 10 Mg Tab) 30 mg PO BID [facility] Stop: 03/11/24 20:59 Last Admin: 02/12/24 08:12 Dose: 30 mg Polyethylene Glycol (Polyethylene (Miralax) 17 Gm Pack) 17 gm PO BID PRN PRN Reason: Constipation Stop: 03/11/24 14:31 Sodium Chloride (Sodium Chloride 0.65% Na Soln 45 Ml ([place])) 1 - 2 sprays NA PRN PRN PRN Reason: Nasal Dryness/Congestion Stop: 03/11/24 13:43 Tamsulosin HCl (Tamsulosin Hcl 0.4 Mg Cap) 0.4 mg PO QAM [facility] Stop: 03/12/24 08:59 Last Admin: 02/12/24 08:13 Dose: 0.4 mg Topiramate (Topiramate 50 Mg Tab) 50 mg PO BID [facility] Stop: 03/11/24 20:59 Last Admin: 02/12/24 08:13 Dose: 50 mg Umeclidinium/Vilanterol (Umeclidinium/Vilanterol 62.5/25mcg 7 Puffs/Inhaler) 1 puffs INH DAILY [facility] Stop: 03/12/24 08:59 Last Admin: 02/12/24 08:19 Dose: Not Given Vitamin D (Cholecalciferol 25 Mcg (1000 Units) Tab) 50 mcg PO DAILY [facility] Stop: 03/12/24 08:59 Last Admin: 02/12/24 08:08 Dose: 50 mcg Mental Health & Subst Abuse Tx Psychiatrist [facility] Psych[facility]rist[facility] Date Of Appointment With Psychiatric Provider: 02/23/2024 Time of Appointment with Psychiatrist: 10:35AM Psychiatric Appointment Comment: In person appointment Therapist Name of Therapist: None Green Tire Inspector Name of Green Tire Inspector: None Post Discharge Appointments Primary Care Physician Name Of Family Doctor/PCP: Christel Mccollum-Dr. [facility] Date of Future Appointment with PCP: 02/25/2024 Time of Appointment with PCP: 11AM Provider Appointment Comment: 10:45AM arrival time
[2024-02-12] MEDS: cloZAPine 25 MG TAB PO SCH (20:57)
--- NOTE | 2024-02-13 09:14 | Psychiatric Progress Note ---
Date of Service February 13, 2024 Impression / Recommendations Impression REBA KELLY is a 68 year-old man who currently lives in [facility], has a history of schizophrenia, and was admitted on 02/10/24 12:45 on a 201 voluntary commitment for acute psychosis with poor sleep and feeling unsafe at his supportive living home. Diagnostically consistent with acute exacerbation of schizophrenia vs schizoaffective disorder in the context of medication non-adherence. Timeline for clozapine discontinuation varies, collateral reports last taken about one week ago, Reba states he only missed one dose. Given his thought blocking, loosening of associations and worsened psychosis, trust collateral that timeline likely closer to one week. Given this will re-titrate clozapine which he is agreeable to. ANC reviewed and stable, given interruption was <30 days he can continue on his [facility] schedule of monthly blood draws for ANC. A: Ongoing bizarre vocalization and behaviors, but pleasant and cooperative when redirected which suggests likely internal stimuli that he's responding to. Slightly less thought blocked today, able to confirm he's responding to some internal stimuli. Suspect clozapine may be starting to show a tiny bit of benefit from restarting it. Sleeping well which is also a big improvement from prior to admission. Not eating much, will continue to monitor. Will increase clozapine again at HS given tolerating well so far. MNPR due to acute psychosis with bizarre movements and shouting intermittently that are disruptive to others Overall, I spent a total of 25 minutes on this case including meeting with the patient, reviewing the chart, nursing report, multidisciplinary team meeting, orders, and documentation. (1) Psychosis: (2) Schizophrenia: (3) Hypertension: (4) Hyperlipidemia: Plan 02/13/2024: Increase clozapine to 100mg HS 02/12/2024: Increase clozapine to 75mg HS. 02/11/2024: The patient was admitted to the [facility] ([facility]) on q15 min checks (behavioral with suicide precautions) for safety. The patient will participate in group, recreational, and milieu therapies and will be offered additional individual and family sessions as clinically appropriate. -Restart clozapine, will titrate given discontinuation of at least one week. Start 50mg HS po -Fasting HbA1c and lipid panel tomorrow AM, Vit D, Vit B12 -Continue prior to admission Paxil 30mg BID (seems he has been adherent with this) -Restart Klonopin 1mg qPM (may consider dose reduction if signs of increased sedation) -Continue Klonopin 1mg daily prn for anxiety/restlessness -Olanzapine 5mg po BID ODT for agitation/psychosis -Cogentin prn for muscle stiffness Inventory Assets Strengths: supportive relationships, willing to get treatment Needs: safety and stabilization, medication adjustment, additional coping skills, increased outpatient services Suicide Risk Level Suicide Risk Level: Moderate (q15 min suicide checks) (denies SI but with acute psychosis and responding to internal stimuli, feels safe in the hospital, feels able to call out to staff) Suicide Risk Level Comments: Risk Factors Assessment Male: Yes : Yes Do You Have Access To A Gun?: No Health Problems: Yes Mental Health Diagnoses: Yes Substance Use Disorders: No Previous Attempt: No Family History of Suicide: No Previous Psychiatric Hospitalization: Yes Hopelessness: No Protective Factors Assessment Employed: No Good Rapport with Provider: Yes Interval History Identifying Information REBA KELLY is a 68-year-old man who currently lives in [facility], has a history of schizophrenia, and was admitted on 02/10/24 12:45 on a 201 voluntary commitment for acute psychosis with poor sleep and feeling unsafe at his [facility] home. Chief Complaint "Ok". Review of Systems Sleep Information Total Hours of Sleep: 8.5 Meal Information Percent Meal Consumed - Breakfast: 50 Percent Meal Consumed - Lunch: 50 Percent Meal Consumed - Dinner: 25 Subjective Subjective Patient was seen & assessed and interval progress reviewed with treatment team nursing and social work. Hasn't been eating much at meals, declined breakfast this morning but did want to sit in the main room. Slept well. Declined all groups yesterday, isolative to his room. Grunting repetitively this morning. Reports his mood is "ok". Denies any medication side effects. Agreeable with clozapine titration. Initially denies hearing voices then clarifies that "when I pray". Physical Exam Psychiatric Orientation: alert, oriented to person and oriented to place Apperance: appropriately dressed and + disheveled Eye Contact: + fair eye contact Motor Behavior: + psychomotor agitation (screaming out and thrashing in bed at times) and + EPS (evidence for TD-lip movements, neck movement) Speech: + loud speech; + abnormal rate/rhythm/volume of speech Affect: euthymic affect Mood: no depressed mood and no anxious mood Thought Process: + thought blocking and + looseness of associations Thought Content: + delusions Suicidal Thoughts: denies suicidal thoughts Homicidal Thoughts: denies homicidal thoughts Hallucinations: + auditory hallucinations (seems to be responding to stimuli); no visual hallucinations Cognition: recent memory grossly intact, remote memory grossly intact, attention grossly intact and language grossly intact Insight: + limited insight Judgment: + limited judgement Vital Signs (Past 24 Hours) Last Vital Signs Temp 36.7 C 02/13/24 06:00 Pulse 70 02/13/24 06:26 Resp 16 02/13/24 06:00 BP 125/78 02/13/24 06:26 Pulse Ox 97 02/13/24 06:00 O2 Del Method Room Air 02/13/24 06:00 Results & Data ([facility]) Laboratory Results Laboratory Results - last 24 hr 02/12/24 08:15 25-OH Vitamin D Total 42.5 Current Inpatient Medications Current Inpatient Medications: Current Inpatient Medications Acetaminophen (Acetaminophen 325 Mg Tab) 650 mg PO Q4H PRN PRN Reason: Headache or Minor Fever Stop: 03/11/24 13:43 Al Hydrox/Mg Hydrox/Simethicone (Aluminum/Magnesium Susp 30 Ml Udc) 30 ml PO Q4H PRN PRN Reason: GI Upset Stop: 03/11/24 13:43 Albuterol (Albuterol Hfa 8 Gm Inhaler) 2 puffs INH Q6H PRN PRN Reason: Wheezing Stop: 03/11/24 14:31 Atorvastatin Calcium (Atorvastatin 40 Mg Tab) 40 mg PO HS [facility] Stop: 03/11/24 21:59 Last Admin: 02/12/24 20:56 Dose: 40 mg Benztropine Mesylate (Benztropine Mesylate 1 Mg Tab) 1 mg PO BID PRN PRN Reason: muscle stiffness/EPS Stop: 03/11/24 20:59 Last Admin: 02/10/24 17:05 Dose: 1 mg Bismuth Subsalicylate (Bismuth Subsalicylate 262 Mg Chew) 2 tab PO Q30M PRN PRN Reason: Loose Stool/Diarrhea Stop: 03/11/24 13:43 Clonazepam (Clonazepam 1 Mg Tab) 1 mg PO PM [facility] Stop: 03/11/24 20:59 Last Admin: 02/12/24 20:55 Dose: 1 mg Clonazepam (Clonazepam 1 Mg Tab) 1 mg PO DAILY PRN PRN Reason: Anxiety Stop: 03/11/24 14:31 Last Admin: 02/11/24 06:19 Dose: 1 mg Clozapine (Clozapine 25 Mg Tab) 75 mg PO HS [facility]; Protocol Stop: 03/13/24 21:59 Last Admin: 02/12/24 20:57 Dose: 75 mg Hydroxyzine HCl (Hydroxyzine Hcl 25 Mg Tab) 50 mg PO HSZ PRN PRN Reason: Insomnia Stop: 03/11/24 13:43 Hydroxyzine HCl (Hydroxyzine Hcl 25 Mg Tab) 25 mg PO Q4H PRN PRN Reason: Anxiety Stop: 03/11/24 13:43 Levothyroxine Sodium (Levothyroxine Sodium 25 Mcg Tablet) 25 mcg PO DAILYBB [facility] Stop: 03/12/24 07:59 Last Admin: 02/13/24 08:34 Dose: 25 mcg Lisinopril (Lisinopril 20 Mg Tab) 20 mg PO QAM [facility] Stop: 03/12/24 08:59 Last Admin: 02/13/24 08:35 Dose: 20 mg Lorazepam (Lorazepam 1 Mg Tab) 1 mg PO TID PRN PRN Reason: Anxiety/Agitation Stop: 03/11/24 14:39 Magnesium Hydroxide (Magnesium Hydroxide Susp 30 Ml Udc) 30 ml PO DAILY PRN PRN Reason: Constipation Stop: 03/11/24 13:43 Meloxicam (Meloxicam 7.5 Mg Tab) 15 mg PO DAILY [facility] Stop: 03/12/24 08:59 Last Admin: 02/13/24 08:36 Dose: 15 mg Metformin HCl (Metformin Hcl 500 Mg Tab) 1,000 mg PO BID17 [facility] Stop: 03/11/24 16:59 Last Admin: 02/13/24 08:36 Dose: 1,000 mg Miscellaneous (Remove Nicoderm Patch) 1 each N/A DAILY@0859 [facility] Stop: 03/12/24 08:58 Last Admin: 02/13/24 08:40 Dose: Not Given Multivitamins (Multivitamin Tab) 1 tab PO DAILY [facility] Stop: 03/12/24 08:59 Last Admin: 02/13/24 08:37 Dose: 1 tab Nicotine (Nicotine 21 Mg/24 Hr Tdsy) 1 patch TD DAILY [facility] Stop: 03/12/24 08:59 Last Admin: 02/13/24 08:40 Dose: Not Given Olanzapine (Olanzapine Zydis 5 Mg Orally Dis. Tab) 5 mg PO BID PRN PRN Reason: paranoia/psychosis Stop: 03/11/24 20:59 Last Admin: 02/10/24 15:09 Dose: 5 mg Ondansetron HCl (Ondansetron 4 Mg Od Tab) 4 mg PO Q6H PRN PRN Reason: Nausea Stop: 03/12/24 09:00 Paroxetine HCl (Paroxetine Hcl 10 Mg Tab) 30 mg PO BID [facility] Stop: 03/11/24 20:59 Last Admin: 02/13/24 08:37 Dose: 30 mg Polyethylene Glycol (Polyethylene (Miralax) 17 Gm Pack) 17 gm PO BID PRN PRN Reason: Constipation Stop: 03/11/24 14:31 Sodium Chloride (Sodium Chloride 0.65% Na Soln 45 Ml ([place])) 1 - 2 sprays NA PRN PRN PRN Reason: Nasal Dryness/Congestion Stop: 03/11/24 13:43 Tamsulosin HCl (Tamsulosin Hcl 0.4 Mg Cap) 0.4 mg PO QAM [facility] Stop: 03/12/24 08:59 Last Admin: 02/13/24 08:38 Dose: 0.4 mg Topiramate (Topiramate 50 Mg Tab) 50 mg PO BID [facility] Stop: 03/11/24 20:59 Last Admin: 02/13/24 08:38 Dose: 50 mg Umeclidinium/Vilanterol (Umeclidinium/Vilanterol 62.5/25mcg 7 Puffs/Inhaler) 1 puffs INH DAILY [facility] Stop: 03/12/24 08:59 Last Admin: 02/13/24 08:40 Dose: Not Given Vitamin D (Cholecalciferol 25 Mcg (1000 Units) Tab) 50 mcg PO DAILY [facility] Stop: 03/12/24 08:59 Last Admin: 02/13/24 08:35 Dose: 50 mcg Mental Health & Subst Abuse Tx Psychiatrist [facility] Date Of Appointment With Psychiatric Provider: 02/23/2024 Time of Appointment with Psychiatrist: 10:35AM Psychiatric Appointment Comment: In person appointment Therapist Name of Therapist: None Fire Officer Name of Fire Officer: None Post Discharge Appointments Primary Care Physician Name Of Family Doctor/PCP: Christel Mart[facility] Primary [facility] Date of Future Appointment with PCP: 02/25/2024 Time of Appointment with PCP: 11AM Provider Appointment Comment: 10:45AM arrival time
[2024-02-13] MEDS: cloZAPine 100 MG TAB PO SCH (21:14)
[2024-02-14] MEDS ORDERED: BENZTROPINE MESYLATE 0.5 MG TAB PO PRN (11:47)
--- NOTE | 2024-02-14 12:38 | Psychiatric Progress Note ---
Date of Service February 14, 2024 Impression / Recommendations Impression REBA KELLY is a 68 year-old man who currently lives in [facility], has a history of schizophrenia, and was admitted on 02/10/24 12:45 on a 201 voluntary commitment for acute psychosis with poor sleep and feeling unsafe at his supportive living home. Diagnostically consistent with acute exacerbation of schizophrenia vs schizoaffective disorder in the context of medication non-adherence. Timeline for clozapine discontinuation varies, collateral reports last taken about one week ago, Reba states he only missed one dose. Given his thought blocking, loosening of associations and worsened psychosis, trust collateral that timeline likely closer to one week. Given this will re-titrate clozapine which he is agreeable to. ANC reviewed and stable, given interruption was <30 days he can continue on his REMS schedule of monthly blood draws for ANC. A: Concern for ongoing persecutory delusions however unclear of details due to the patient being guarded. Concern for auditory hallucinations and responding to internal stimuli. He reports improved anxiety and sleep. Has been tolerating clozapine well with stable vitals. Plan to continue titration. Paxil dosing adjusted to morning and afternoon. MNPR due to acute psychosis with bizarre movements and shouting intermittently that are disruptive to others Overall, I spent a total of 30 minutes on this case including meeting with the patient, reviewing the chart, nursing report, multidisciplinary team meeting, orders, and documentation. (1) Psychosis: (2) Schizophrenia: (3) Hypertension: (4) Hyperlipidemia: Plan 02/14/2024: Increase Clozapine to 125 mg at bedtime. 02/13/2024: Increase clozapine to 100mg HS 02/12/2024: Increase clozapine to 75mg HS. 02/11/2024: The patient was admitted to the [facility] ([facility] mental health unit) on q15 min checks (behavioral with suicide precautions) for safety. The patient will participate in group, recreational, and milieu therapies and will be offered additional individual and family sessions as clinically appropriate. -Restart clozapine, will titrate given discontinuation of at least one week. Start 50mg HS po -Fasting HbA1c and lipid panel tomorrow AM, Vit D, Vit B12 -Continue prior to admission Paxil 30mg BID (seems he has been adherent with this) -Restart Klonopin 1mg qPM (may consider dose reduction if signs of increased sedation) -Continue Klonopin 1mg daily prn for anxiety/restlessness -Olanzapine 5mg po BID ODT for agitation/psychosis -Cogentin prn for muscle stiffness Inventory Assets Strengths: supportive relationships, willing to get treatment Needs: safety and stabilization, medication adjustment, additional coping skills, increased outpatient services Suicide Risk Level Suicide Risk Level: Moderate (q15 min suicide checks) (denies SI but with acute psychosis and responding to internal stimuli, feels safe in the hospital, feels able to call out to staff) Suicide Risk Level Comments: Risk Factors Assessment Male: Yes : Yes Do You Have Access To A Gun?: No Health Problems: Yes Mental Health Diagnoses: Yes Substance Use Disorders: No Previous Attempt: No Family History of Suicide: No Previous Psychiatric Hospitalization: Yes Hopelessness: No Protective Factors Assessment Employed: No Good Rapport with Provider: Yes Interval History Identifying Information REBA KELLY is a 68-year-old man who currently lives in [facility], has a history of schizophrenia, and was admitted on 02/10/24 12:45 on a 201 voluntary commitment for acute psychosis with poor sleep and feeling unsafe at his [facility] home. Chief Complaint "Pretty good" Review of Systems Sleep Information Total Hours of Sleep: 9.75 Meal Information Percent Meal Consumed - Breakfast: 0 Percent Meal Consumed - Lunch: 75 Percent Meal Consumed - Dinner: 75 Subjective Subjective Patient was seen & assessed and interval progress reviewed with treatment team nursing and social work Patient is seen in his room laying on his bed. Minimal spontaneous speech. He reports the voices are calmer. Says he has been attending groups. When asked about past complaints of sedation from medications he denies having them. He reports feeling safe. He denies visualizations. Says that he slept well. He asks us to update the timing of his medications. He denies SI and SH. He reports fear of going back to his facility in his work and does not elaborate further despite secondary questioning. 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 Physical Exam Mental Examination Appearance: Disheveled Eye Contact: Maintains Eye Contact Motor Behavior: Unremarkable Speech: Normal Mood: Euthymic and Calm Affect: Blunted Thought Process: [place], Poverty of Content and Slowed Thinking Thought Content: Poverty of Content (delusional thoughts) Hallucinations: Auditory (would not disclose details) Insight: Poor Judgement: Poor Vital Signs (Past 24 Hours) Last Vital Signs Temp 36.9 C 02/14/24 06:35 Pulse 69 02/14/24 06:36 Resp 16 02/14/24 06:35 BP 133/74 02/14/24 06:36 Pulse Ox 97 02/13/24 06:00 O2 Del Method Room Air 02/13/24 06:00 Results & Data ([facility]) Current Inpatient Medications Current Inpatient Medications: Current Inpatient Medications Acetaminophen (Acetaminophen 325 Mg Tab) 650 mg PO Q4H PRN PRN Reason: Headache or Minor Fever Stop: 03/11/24 13:43 Al Hydrox/Mg Hydrox/Simethicone (Aluminum/Magnesium Susp 30 Ml Udc) 30 ml PO Q4H PRN PRN Reason: GI Upset Stop: 03/11/24 13:43 Albuterol (Albuterol Hfa 8 Gm Inhaler) 2 puffs INH Q6H PRN PRN Reason: Wheezing Stop: 03/11/24 14:31 Atorvastatin Calcium (Atorvastatin 40 Mg Tab) 40 mg PO HS [facility] Stop: 03/11/24 21:59 Last Admin: 02/13/24 21:13 Dose: 40 mg Benztropine Mesylate (Benztropine Mesylate 0.5 Mg Tab) 0.5 mg PO BID PRN PRN Reason: muscle stiffness/EPS Stop: 03/11/24 20:59 Bismuth Subsalicylate (Bismuth Subsalicylate 262 Mg Chew) 2 tab PO Q30M PRN PRN Reason: Loose Stool/Diarrhea Stop: 03/11/24 13:43 Clonazepam (Clonazepam 1 Mg Tab) 1 mg PO PM [facility] Stop: 03/11/24 20:59 Last Admin: 02/13/24 21:10 Dose: 1 mg Clonazepam (Clonazepam 1 Mg Tab) 1 mg PO DAILY PRN PRN Reason: Anxiety Stop: 03/11/24 14:31 Last Admin: 02/11/24 06:19 Dose: 1 mg Clozapine (Clozapine 25 Mg Tab) 125 mg PO HS [facility]; Protocol Stop: 03/15/24 21:59 Hydroxyzine HCl (Hydroxyzine Hcl 25 Mg Tab) 50 mg PO HSZ PRN PRN Reason: Insomnia Stop: 03/11/24 13:43 Hydroxyzine HCl (Hydroxyzine Hcl 25 Mg Tab) 25 mg PO Q4H PRN PRN Reason: Anxiety Stop: 03/11/24 13:43 Levothyroxine Sodium (Levothyroxine Sodium 25 Mcg Tablet) 25 mcg PO DAILYBB [facility] Stop: 03/12/24 07:59 Last Admin: 02/14/24 09:01 Dose: 25 mcg Lisinopril (Lisinopril 20 Mg Tab) 20 mg PO QAM [facility] Stop: 03/12/24 08:59 Last Admin: 02/14/24 09:00 Dose: 20 mg Lorazepam (Lorazepam 1 Mg Tab) 1 mg PO TID PRN PRN Reason: Anxiety/Agitation Stop: 03/11/24 14:39 Magnesium Hydroxide (Magnesium Hydroxide Susp 30 Ml Udc) 30 ml PO DAILY PRN PRN Reason: Constipation Stop: 03/11/24 13:43 Meloxicam (Meloxicam 7.5 Mg Tab) 15 mg PO HS [facility] Stop: 03/15/24 21:59 Metformin HCl (Metformin Hcl 500 Mg Tab) 1,000 mg PO BID17 [facility] Stop: 03/11/24 16:59 Last Admin: 02/14/24 09:00 Dose: 1,000 mg Miscellaneous (Remove Nicoderm Patch) 1 each N/A DAILY@0859 [facility] Stop: 03/12/24 08:58 Last Admin: 02/14/24 09:01 Dose: 1 each Multivitamins (Multivitamin Tab) 1 tab PO DAILY [facility] Stop: 03/12/24 08:59 Last Admin: 02/14/24 09:00 Dose: 1 tab Olanzapine (Olanzapine Zydis 5 Mg Orally Dis. Tab) 5 mg PO BID PRN PRN Reason: paranoia/psychosis Stop: 03/11/24 20:59 Last Admin: 02/10/24 15:09 Dose: 5 mg Ondansetron HCl (Ondansetron 4 Mg Od Tab) 4 mg PO Q6H PRN PRN Reason: Nausea Stop: 03/12/24 09:00 Paroxetine HCl (Paroxetine Hcl 10 Mg Tab) 30 mg PO BID@0900,1600 [facility] Stop: 03/15/24 15:59 Polyethylene Glycol (Polyethylene (Miralax) 17 Gm Pack) 17 gm PO BID PRN PRN Reason: Constipation Stop: 03/11/24 14:31 Sodium Chloride (Sodium Chloride 0.65% Na Soln 45 Ml ([place])) 1 - 2 sprays NA PRN PRN PRN Reason: Nasal Dryness/Congestion Stop: 03/11/24 13:43 Tamsulosin HCl (Tamsulosin Hcl 0.4 Mg Cap) 0.4 mg PO QAM [facility] Stop: 03/12/24 08:59 Last Admin: 02/14/24 09:01 Dose: 0.4 mg Topiramate (Topiramate 50 Mg Tab) 50 mg PO BID [facility] Stop: 03/11/24 20:59 Last Admin: 02/14/24 09:00 Dose: 50 mg Vitamin D (Cholecalciferol 25 Mcg (1000 Units) Tab) 50 mcg PO DAILY [facility] Stop: 03/12/24 08:59 Last Admin: 02/14/24 09:00 Dose: 50 mcg Mental Health & Subst Abuse Tx Psychiatrist [facility] Date Of Appointment With Psychiatric Provider: 02/23/2024 Time of Appointment with Psychiatrist: 10:35AM Psychiatric Appointment Comment: In person appointment Therapist Name of Therapist: None E Learning Manager Name of E Learning Manager: None Post Discharge Appointments Primary Care Physician Name Of Family Doctor/PCP: Christel madrigal [facility] Veda-Dr. Martinez Primary Care Date of Future Appointment with PCP: 02/25/2024 Time of Appointment with PCP: 11AM Provider Appointment Comment: 10:45AM arrival time
[2024-02-14] MEDS: PARoxetine HCL 10 MG TAB PO SCH (17:36)
[2024-02-14] MEDS: cloZAPine 25 MG TAB PO SCH (21:07)
[2024-02-14] MEDS: MELOXICAM 7.5 MG TAB PO SCH (21:09)
--- NOTE | 2024-02-15 11:13 | Psychiatric Progress Note ---
Date of Service February 15, 2024 Impression / Recommendations Impression REBA KELLY is a 68 year-old man who currently lives in [facility], has a history of schizophrenia, and was admitted on 02/10/24 12:45 on a 201 voluntary commitment for acute psychosis with poor sleep and feeling unsafe at his supportive living home. Diagnostically consistent with acute exacerbation of schizophrenia vs schizoaffective disorder in the context of medication non-adherence. Timeline for clozapine discontinuation varies, collateral reports last taken about one week ago, Reba states he only missed one dose. Given his thought blocking, loosening of associations and worsened psychosis, trust collateral that timeline likely closer to one week. Given this will re-titrate clozapine which he is agreeable to. ANC reviewed and stable, given interruption was <30 days he can continue on his REMS schedule of monthly blood draws for ANC. A: Concern for ongoing persecutory delusions however unclear of details due to the patient being guarded. Concern for auditory hallucinations and responding to internal stimuli. He reports improved anxiety and sleep. Has been tolerating clozapine well with stable vitals. Plan to continue titration. Klonopin PRN d/c. Reviewed PDMP and patient receiving Clonazepam 1mg BID for a year, would not benefit from rapid d/c. MNPR due to acute psychosis with bizarre movements and shouting intermittently that are disruptive to others Overall, I spent a total of 30 minutes on this case including meeting with the patient, reviewing the chart, nursing report, multidisciplinary team meeting, orders, and documentation. (1) Psychosis: (2) Schizophrenia: (3) Hypertension: (4) Hyperlipidemia: Plan 02/15/2024: Increase Clozapine to 150 mg at bedtime. Discontinue daily clonazepam as needed. 02/14/2024: Increase Clozapine to 125 mg at bedtime. 02/13/2024: Increase clozapine to 100mg HS 02/12/2024: Increase clozapine to 75mg HS. 02/11/2024: The patient was admitted to the [facility] ([facility] mental health unit) on q15 min checks (behavioral with suicide precautions) for safety. The patient will participate in group, recreational, and milieu therapies and will be offered additional individual and family sessions as clinically appropriate. -Restart clozapine, will titrate given discontinuation of at least one week. Start 50mg HS po -Fasting HbA1c and lipid panel tomorrow AM, Vit D, Vit B12 -Continue prior to admission Paxil 30mg BID (seems he has been adherent with this) -Restart Klonopin 1mg qPM (may consider dose reduction if signs of increased sedation) -Continue Klonopin 1mg daily prn for anxiety/restlessness -Olanzapine 5mg po BID ODT for agitation/psychosis -Cogentin prn for muscle stiffness Inventory Assets Strengths: supportive relationships, willing to get treatment Needs: safety and stabilization, medication adjustment, additional coping skills, increased outpatient services Suicide Risk Level Suicide Risk Level: Moderate (q15 min suicide checks) (denies SI but with acute psychosis and responding to internal stimuli, feels safe in the hospital, feels able to call out to staff) Suicide Risk Level Comments: Risk Factors Assessment Male: Yes : Yes Do You Have Access To A Gun?: No Health Problems: Yes Mental Health Diagnoses: Yes Substance Use Disorders: No Previous Attempt: No Family History of Suicide: No Previous Psychiatric Hospitalization: Yes Hopelessness: No Protective Factors Assessment Employed: No Good Rapport with Provider: Yes Interval History Identifying Information REBA KELLY is a 68-year-old man who currently lives in [facility], has a history of schizophrenia, and was admitted on 02/10/24 12:45 on a 201 voluntary commitment for acute psychosis with poor sleep and feeling unsafe at his [facility] home. Chief Complaint "Klonopin is a narcotic" Review of Systems Sleep Information Total Hours of Sleep: 7.5 Meal Information Percent Meal Consumed - Breakfast: 0 Percent Meal Consumed - Lunch: 75 Percent Meal Consumed - Dinner: 75 Subjective Subjective Patient was seen & assessed and interval progress reviewed with treatment team nursing and social work Overnight patient continues to make repetitive groaning noises, improved in frequency. He reports to nursing that he does not want Klonopin because it is a "narcotic". On interview he says he slept well and feels his anxiety is better. He said he stopped taking Klonopin 3 weeks ago. PDMP shows she was recently prescribed Klonopin 1 twice daily last filled on 01/28/2024. Patient reports his voices are still present however less bothersome. Has been attending groups and feels he can concentrate well. Contemplating where to go on discharge. He denies SI. Reports tolerating clozapine well and denies palpitations, GI side effects. Physical Exam Mental Examination Appearance: Disheveled Eye Contact: Maintains Eye Contact Motor Behavior: Unremarkable Speech: Normal Mood: Euthymic and Calm Affect: Blunted Thought Process: [place], Poverty of Content and Slowed Thinking Thought Content: Poverty of Content (delusional thoughts) Hallucinations: Auditory (would not disclose details) Insight: Poor Judgement: Poor Vital Signs (Past 24 Hours) Last Vital Signs Temp 36.9 C 02/15/24 06:35 Pulse 67 02/15/24 06:35 Resp 16 02/15/24 06:35 BP 131/87 02/15/24 06:35 Pulse Ox 97 02/13/24 06:00 O2 Del Method Room Air 02/13/24 06:00 Results & Data ([facility]) Current Inpatient Medications Current Inpatient Medications: Current Inpatient Medications Acetaminophen (Acetaminophen 325 Mg Tab) 650 mg PO Q4H PRN PRN Reason: Headache or Minor Fever Stop: 03/11/24 13:43 Al Hydrox/Mg Hydrox/Simethicone (Aluminum/Magnesium Susp 30 Ml Udc) 30 ml PO Q4H PRN PRN Reason: GI Upset Stop: 03/11/24 13:43 Albuterol (Albuterol Hfa 8 Gm Inhaler) 2 puffs INH Q6H PRN PRN Reason: Wheezing Stop: 03/11/24 14:31 Atorvastatin Calcium (Atorvastatin 40 Mg Tab) 40 mg PO HS [facility] Stop: 03/11/24 21:59 Last Admin: 02/14/24 21:07 Dose: 40 mg Benztropine Mesylate (Benztropine Mesylate 0.5 Mg Tab) 0.5 mg PO BID PRN PRN Reason: muscle stiffness/EPS Stop: 03/11/24 20:59 Bismuth Subsalicylate (Bismuth Subsalicylate 262 Mg Chew) 2 tab PO Q30M PRN PRN Reason: Loose Stool/Diarrhea Stop: 03/11/24 13:43 Clonazepam (Clonazepam 1 Mg Tab) 1 mg PO PM [facility] Stop: 03/11/24 20:59 Last Admin: 02/14/24 21:06 Dose: 1 mg Clozapine (Clozapine 25 Mg Tab) 125 mg PO HS [facility]; Protocol Stop: 03/15/24 21:59 Last Admin: 02/14/24 21:07 Dose: 125 mg Hydroxyzine HCl (Hydroxyzine Hcl 25 Mg Tab) 50 mg PO HSZ PRN PRN Reason: Insomnia Stop: 03/11/24 13:43 Hydroxyzine HCl (Hydroxyzine Hcl 25 Mg Tab) 25 mg PO Q4H PRN PRN Reason: Anxiety Stop: 03/11/24 13:43 Levothyroxine Sodium (Levothyroxine Sodium 25 Mcg Tablet) 25 mcg PO DAILYBB [facility] Stop: 03/12/24 07:59 Last Admin: 02/15/24 09:29 Dose: 25 mcg Lisinopril (Lisinopril 20 Mg Tab) 20 mg PO QAM [facility] Stop: 03/12/24 08:59 Last Admin: 02/15/24 09:29 Dose: 20 mg Lorazepam (Lorazepam 1 Mg Tab) 1 mg PO TID PRN PRN Reason: Anxiety/Agitation Stop: 03/11/24 14:39 Magnesium Hydroxide (Magnesium Hydroxide Susp 30 Ml Udc) 30 ml PO DAILY PRN PRN Reason: Constipation Stop: 03/11/24 13:43 Meloxicam (Meloxicam 7.5 Mg Tab) 15 mg PO HS [facility] Stop: 03/15/24 21:59 Last Admin: 02/14/24 21:09 Dose: 15 mg Metformin HCl (Metformin Hcl 500 Mg Tab) 1,000 mg PO BID17 [facility] Stop: 03/11/24 16:59 Last Admin: 02/15/24 09:29 Dose: 1,000 mg Multivitamins (Multivitamin Tab) 1 tab PO DAILY [facility] Stop: 03/12/24 08:59 Last Admin: 02/15/24 09:29 Dose: 1 tab Olanzapine (Olanzapine Zydis 5 Mg Orally Dis. Tab) 5 mg PO BID PRN PRN Reason: paranoia/psychosis Stop: 03/11/24 20:59 Last Admin: 02/10/24 15:09 Dose: 5 mg Ondansetron HCl (Ondansetron 4 Mg Od Tab) 4 mg PO Q6H PRN PRN Reason: Nausea Stop: 03/12/24 09:00 Paroxetine HCl (Paroxetine Hcl 10 Mg Tab) 30 mg PO BID@0900,1600 [facility] Stop: 03/15/24 15:59 Last Admin: 02/15/24 09:29 Dose: 30 mg Polyethylene Glycol (Polyethylene (Miralax) 17 Gm Pack) 17 gm PO BID PRN PRN Reason: Constipation Stop: 03/11/24 14:31 Sodium Chloride (Sodium Chloride 0.65% Na Soln 45 Ml ([place])) 1 - 2 sprays NA PRN PRN PRN Reason: Nasal Dryness/Congestion Stop: 03/11/24 13:43 Tamsulosin HCl (Tamsulosin Hcl 0.4 Mg Cap) 0.4 mg PO QAM [facility] Stop: 03/12/24 08:59 Last Admin: 02/15/24 09:29 Dose: 0.4 mg Topiramate (Topiramate 50 Mg Tab) 50 mg PO BID [facility] Stop: 03/11/24 20:59 Last Admin: 02/15/24 09:29 Dose: 50 mg Vitamin D (Cholecalciferol 25 Mcg (1000 Units) Tab) 50 mcg PO DAILY [facility] Stop: 03/12/24 08:59 Last Admin: 02/15/24 09:29 Dose: 50 mcg Mental Health & Subst Abuse Tx Psychiatrist [facility] Date Of Appointment With Psychiatric Provider: 02/23/2024 Time of Appointment with Psychiatrist: 10:35AM Psychiatric Appointment Comment: In person appointment Therapist Name of Therapist: None Script Editor Name of Script Editor: None Post Discharge Appointments Primary Care Physician Name Of Family Doctor/PCP: Christel Mccollum-Dr. Martinez Primary Care Date of Future Appointment with PCP: 02/25/2024 Time of Appointment with PCP: 11AM Provider Appointment Comment: 10:45AM arrival time
[2024-02-16] MEDS: CYANOCOBALAMIN (B-12) 100 MCG TABLET PO SCH (13:11)
[2024-02-16] MEDS: POLYETHYLENE (MIRALAX) 17 GM PACK PO SCH (13:11)
[2024-02-16] MEDS: PSYLLIUM or GUAR GUM FIBER 4GM PACKET PO SCH (13:11)
--- NOTE | 2024-02-16 13:28 | Psychiatric Progress Note ---
Date of Service February 16, 2024 Impression / Recommendations Impression REBA KELLY is a 68 year-old man who currently lives in [facility], has a history of schizophrenia, and was admitted on 02/10/24 12:45 on a 201 voluntary commitment for acute psychosis with poor sleep and feeling unsafe at his supportive living home. Diagnostically consistent with acute exacerbation of schizophrenia vs schizoaffective disorder in the context of medication non-adherence. Timeline for clozapine discontinuation varies, collateral reports last taken about one week ago, Reba states he only missed one dose. Given his thought blocking, loosening of associations and worsened psychosis, trust collateral that timeline likely closer to one week. Given this will re-titrate clozapine which he is agreeable to. ANC reviewed and stable, given interruption was <30 days he can continue on his [facility] schedule of monthly blood draws for ANC. A: Patient presents a history of chronic auditory hallucinations and presents an improvement in anxiety, vocal and motor tics, and paranoia. Concern for sikhism preoccupation and unclear if this has been occurring at baseline. Concern for constipation due to clozapine and will maintain current clozapine dose and monitor. MNPR due to acute psychosis with bizarre movements and shouting intermittently that are disruptive to others Overall, I spent a total of 30 minutes on this case including meeting with the patient, reviewing the chart, nursing report, multidisciplinary team meeting, orders, and documentation. (1) Psychosis: (2) Schizophrenia: (3) Hypertension: (4) Hyperlipidemia: Plan 02/16/2024: Continue Clozapine. Start MiraLAX daily scheduled and psyllium Husk daily scheduled. 02/15/2024: Increase Clozapine to 150 mg at bedtime. Discontinue daily clonazepam as needed. 02/14/2024: Increase Clozapine to 125 mg at bedtime. 02/13/2024: Increase clozapine to 100mg HS 02/12/2024: Increase clozapine to 75mg HS. 02/11/2024: The patient was admitted to the [facility] ([facility] mental health unit) on q15 min checks (behavioral with suicide precautions) for safety. The patient will participate in group, recreational, and milieu therapies and will be offered additional individual and family sessions as clinically appropriate. -Restart clozapine, will titrate given discontinuation of at least one week. Start 50mg HS po -Fasting HbA1c and lipid panel tomorrow AM, Vit D, Vit B12 -Continue prior to admission Paxil 30mg BID (seems he has been adherent with this) -Restart Klonopin 1mg qPM (may consider dose reduction if signs of increased sedation) -Continue Klonopin 1mg daily prn for anxiety/restlessness -Olanzapine 5mg po BID ODT for agitation/psychosis -Cogentin prn for muscle stiffness Inventory Assets Strengths: supportive relationships, willing to get treatment Needs: safety and stabilization, medication adjustment, additional coping skills, increased outpatient services Suicide Risk Level Suicide Risk Level: Moderate (q15 min suicide checks) (denies SI but with acute psychosis and responding to internal stimuli, feels safe in the hospital, feels able to call out to staff) Suicide Risk Level Comments: Risk Factors Assessment Male: Yes : Yes Do You Have Access To A Gun?: No Health Problems: Yes Mental Health Diagnoses: Yes Substance Use Disorders: No Previous Attempt: No Family History of Suicide: No Previous Psychiatric Hospitalization: Yes Hopelessness: No Protective Factors Assessment Employed: No Good Rapport with Provider: Yes Interval History Identifying Information REBA KELLY is a 68-year-old man who currently lives in [facility], has a history of schizophrenia, and was admitted on 02/10/24 12:45 on a 201 voluntary commitment for acute psychosis with poor sleep and feeling unsafe at his [facility] home. Chief Complaint Auditory hallucinations Review of Systems Sleep Information Total Hours of Sleep: 8.5 Meal Information Percent Meal Consumed - Breakfast: 50 Percent Meal Consumed - Lunch: 0 Percent Meal Consumed - Dinner: 0 Subjective Subjective Patient was seen & assessed and interval progress reviewed with treatment team nursing and social work Nursing reports patient has been religiously preoccupied praying every morning. Attending some groups. No noted tonic-clonic movements. On interview he reports sleeping well. He reports voices have not been bothersome and that they are a "few voices". Denies any muscle rigidity or spasms. Says that he started praying to God recently for his friends safety. Prays to the "holy spirit". Unsure when he had his last bowel movement. Denies any palpitations or dizziness or lightheadedness. Reports feeling safe and denies people are out to get him. Denies SI. Unsure of whether he should go back to his facility. Physical Exam Mental Examination Appearance: Disheveled Eye Contact: Maintains Eye Contact Motor Behavior: Unremarkable Speech: Normal Mood: Euthymic and Calm Affect: Blunted Thought Process: [place], Poverty of Content and Slowed Thinking Thought Content: Poverty of Content (delusional thoughts) Hallucinations: Auditory (would not disclose details) Insight: Poor Judgement: Poor Vital Signs (Past 24 Hours) Last Vital Signs Temp 36.8 C 02/16/24 06:30 Pulse 64 02/16/24 06:31 Resp 16 02/16/24 06:30 BP 125/81 02/16/24 06:31 Pulse Ox 97 02/13/24 06:00 O2 Del Method Room Air 02/13/24 06:00 Results & Data ([facility]) Current Inpatient Medications Current Inpatient Medications: Current Inpatient Medications Acetaminophen (Acetaminophen 325 Mg Tab) 650 mg PO Q4H PRN PRN Reason: Headache or Minor Fever Stop: 03/11/24 13:43 Al Hydrox/Mg Hydrox/Simethicone (Aluminum/Magnesium Susp 30 Ml Udc) 30 ml PO Q4H PRN PRN Reason: GI Upset Stop: 03/11/24 13:43 Albuterol (Albuterol Hfa 8 Gm Inhaler) 2 puffs INH Q6H PRN PRN Reason: Wheezing Stop: 03/11/24 14:31 Atorvastatin Calcium (Atorvastatin 40 Mg Tab) 40 mg PO HS [facility] Stop: 03/11/24 21:59 Last Admin: 02/15/24 20:39 Dose: 40 mg Benztropine Mesylate (Benztropine Mesylate 0.5 Mg Tab) 0.5 mg PO BID PRN PRN Reason: muscle stiffness/EPS Stop: 03/11/24 20:59 Bismuth Subsalicylate (Bismuth Subsalicylate 262 Mg Chew) 2 tab PO Q30M PRN PRN Reason: Loose Stool/Diarrhea Stop: 03/11/24 13:43 Clonazepam (Clonazepam 1 Mg Tab) 1 mg PO PM [facility] Stop: 03/11/24 20:59 Last Admin: 02/15/24 20:40 Dose: 1 mg Clozapine (Clozapine 25 Mg Tab) 125 mg PO HS [facility]; Protocol Stop: 03/15/24 21:59 Last Admin: 02/15/24 20:38 Dose: 125 mg Cyanocobalamin (Cyanocobalamin (B-12) 100 Mcg Tablet) 100 mcg PO QAM [facility] Stop: 03/17/24 10:29 Last Admin: 02/16/24 13:11 Dose: 100 mcg Hydroxyzine HCl (Hydroxyzine Hcl 25 Mg Tab) 50 mg PO HSZ PRN PRN Reason: Insomnia Stop: 03/11/24 13:43 Hydroxyzine HCl (Hydroxyzine Hcl 25 Mg Tab) 25 mg PO Q4H PRN PRN Reason: Anxiety Stop: 03/11/24 13:43 Levothyroxine Sodium (Levothyroxine Sodium 25 Mcg Tablet) 25 mcg PO DAILYBB [facility] Stop: 03/12/24 07:59 Last Admin: 02/16/24 08:53 Dose: 25 mcg Lisinopril (Lisinopril 20 Mg Tab) 20 mg PO QAM [facility] Stop: 03/12/24 08:59 Last Admin: 02/16/24 08:54 Dose: 20 mg Lorazepam (Lorazepam 1 Mg Tab) 1 mg PO TID PRN PRN Reason: Anxiety/Agitation Stop: 03/11/24 14:39 Magnesium Hydroxide (Magnesium Hydroxide Susp 30 Ml Udc) 30 ml PO DAILY PRN PRN Reason: Constipation Stop: 03/11/24 13:43 Meloxicam (Meloxicam 7.5 Mg Tab) 15 mg PO HS [facility] Stop: 03/15/24 21:59 Last Admin: 02/15/24 20:39 Dose: 15 mg Metformin HCl (Metformin Hcl 500 Mg Tab) 1,000 mg PO BID17 [facility] Stop: 03/11/24 16:59 Last Admin: 02/16/24 08:54 Dose: 1,000 mg Multivitamins (Multivitamin Tab) 1 tab PO DAILY [facility] Stop: 03/12/24 08:59 Last Admin: 02/16/24 08:55 Dose: 1 tab Olanzapine (Olanzapine Zydis 5 Mg Orally Dis. Tab) 5 mg PO BID PRN PRN Reason: paranoia/psychosis Stop: 03/11/24 20:59 Last Admin: 02/10/24 15:09 Dose: 5 mg Ondansetron HCl (Ondansetron 4 Mg Od Tab) 4 mg PO Q6H PRN PRN Reason: Nausea Stop: 03/12/24 09:00 Paroxetine HCl (Paroxetine Hcl 10 Mg Tab) 30 mg PO BID@0900,1600 [facility] Stop: 03/15/24 15:59 Last Admin: 02/16/24 08:55 Dose: 30 mg Polyethylene Glycol (Polyethylene (Miralax) 17 Gm Pack) 17 gm PO DAILY [facility] Stop: 03/17/24 10:29 Last Admin: 02/16/24 13:11 Dose: 17 gm Psyllium Hydrophilic Mucilloid (Psyllium Or Guar Gum Fiber 4gm Packet) 4 gm PO QAM [facility] Stop: 03/17/24 10:29 Last Admin: 02/16/24 13:11 Dose: 4 gm Sodium Chloride (Sodium Chloride 0.65% Na Soln 45 Ml ([place])) 1 - 2 sprays NA PRN PRN PRN Reason: Nasal Dryness/Congestion Stop: 03/11/24 13:43 Tamsulosin HCl (Tamsulosin Hcl 0.4 Mg Cap) 0.4 mg PO QAM [facility] Stop: 03/12/24 08:59 Last Admin: 02/16/24 08:56 Dose: 0.4 mg Topiramate (Topiramate 50 Mg Tab) 50 mg PO BID [facility] Stop: 03/11/24 20:59 Last Admin: 02/16/24 08:56 Dose: 50 mg Vitamin D (Cholecalciferol 25 Mcg (1000 Units) Tab) 50 mcg PO DAILY [facility] Stop: 03/12/24 08:59 Last Admin: 02/16/24 08:54 Dose: 50 mcg Mental Health & Subst Abuse Tx Psychiatrist [facility] Date Of Appointment With Psychiatric Provider: 02/23/2024 Time of Appointment with Psychiatrist: 10:35AM Psychiatric Appointment Comment: In person appointment Therapist Name of Therapist: None Patient Partner Name of Patient Partner: None Post Discharge Appointments Primary Care Physician Name Of Family Doctor/PCP: Christel Mccollum-Dr. Martinez Primary [facility] Date of Future Appointment with PCP: 02/25/2024 Time of Appointment with PCP: 11AM Provider Appointment Comment: 10:45AM arrival time
[2024-02-17 09:40] LABS: Basophils # (auto) 0.03 K/uL (0.00-0.20); Basophils % (auto) 0.4 %; Hematocrit (blood only) 41.3 % (42.0-52.0); Hemoglobin 13.6 g/dl (14.0-18.0); Immature Granulocytes # (auto) 0.04 K/uL (0.01-0.20); Immature Granulocytes % (auto) 0.5 %; Mean Corpuscular Hemoglobin 30.1 pg (25.0-34.0); Mean Corpuscular Hgb Conc 32.9 g/dL (32.0-36.0); Mean Corpuscular Volume 91.4 fL (80.0-100.0); Mean Platelet Volume 11.9 fL (9.4-12.4); Monocytes # (auto) 0.87 K/uL (0.11-0.59); Monocytes % (auto) 10.4 %; Neutrophils # (auto) 4.85 K/uL (1.40-6.50); Neutrophils % (auto) 57.7 %; Platelet Count 183 K/uL (130-400); RDW Coefficient of Variation 12.7 % (11.5-14.5); RDW Standard Deviation 41.5 fL (36.4-46.3); Red Blood Count 4.52 M/uL (4.70-6.10); White Blood Count 8.39 K/ul (4.8-10.8)
--- NOTE | 2024-02-17 11:46 | Psychiatric Progress Note ---
Date of Service February 17, 2024 Impression / Recommendations Impression REBA KELLY is a 68 year-old man who currently lives in [facility], has a history of schizophrenia, and was admitted on 02/10/24 12:45 on a 201 voluntary commitment for acute psychosis with poor sleep and feeling unsafe at his supportive living home. Diagnostically consistent with acute exacerbation of schizophrenia vs schizoaffective disorder in the context of medication non-adherence. Timeline for clozapine discontinuation varies, collateral reports last taken about one week ago, Reba states he only missed one dose. Given his thought blocking, loosening of associations and worsened psychosis, trust collateral that timeline likely closer to one week. Given this will re-titrate clozapine which he is agreeable to. ANC reviewed and stable, given interruption was <30 days he can continue on his [facility] schedule of monthly blood draws for ANC. A: Concern for some jainism preoccupation. Has been overall appropriate with staff and now engaging more outside of his room. Continued chronic auditory hallucinations which have been rated as less bothersome to the patient recently. Small bowel movement yesterday, concern for continued constipation with clozapine and PEG scheduled. Plan to further titrate clozapine today. Patient appears to be getting close to baseline function. CBC drawn today and ANC within expected limits. MNPR due to acute psychosis with bizarre movements and shouting intermittently that are disruptive to others Overall, I spent a total of 30 minutes on this case including meeting with the patient, reviewing the chart, nursing report, multidisciplinary team meeting, orders, and documentation. (1) Psychosis: (2) Schizophrenia: (3) Hypertension: (4) Hyperlipidemia: (5) Constipation: Plan 02/17/2024: Increase Clozapine to 150 mg at bedtime. 02/16/2024: Continue Clozapine. Start MiraLAX daily scheduled and psyllium Husk daily scheduled. 02/15/2024: Discontinue daily clonazepam as needed. 02/14/2024: Increase Clozapine to 125 mg at bedtime. 02/13/2024: Increase clozapine to 100mg HS 02/12/2024: Increase clozapine to 75mg HS. 02/11/2024: The patient was admitted to the [facility] ([facility]) on q15 min checks (behavioral with suicide precautions) for safety. The patient will participate in group, recreational, and milieu therapies and will be offered additional individual and family sessions as clinically appropriate. -Restart clozapine, will titrate given discontinuation of at least one week. Start 50mg HS po -Fasting HbA1c and lipid panel tomorrow AM, Vit D, Vit B12 -Continue prior to admission Paxil 30mg BID (seems he has been adherent with this) -Restart Klonopin 1mg qPM (may consider dose reduction if signs of increased sedation) -Continue Klonopin 1mg daily prn for anxiety/restlessness -Olanzapine 5mg po BID ODT for agitation/psychosis -Cogentin prn for muscle stiffness Inventory Assets Strengths: supportive relationships, willing to get treatment Needs: safety and stabilization, medication adjustment, additional coping skills, increased outpatient services Suicide Risk Level Suicide Risk Level: Moderate (q15 min suicide checks) (denies SI but with acute psychosis and responding to internal stimuli, feels safe in the hospital, feels able to call out to staff) Suicide Risk Level Comments: Risk Factors Assessment Male: Yes : Yes Do You Have Access To A Gun?: No Health Problems: Yes Mental Health Diagnoses: Yes Substance Use Disorders: No Previous Attempt: No Family History of Suicide: No Previous Psychiatric Hospitalization: Yes Hopelessness: No Protective Factors Assessment Employed: No Good Rapport with Provider: Yes Interval History Identifying Information REBA KELLY is a 68-year-old man who currently lives in [facility], has a history of schizophrenia, and was admitted on 02/10/24 12:45 on a 201 voluntary commitment for acute psychosis with poor sleep and feeling unsafe at his supportive [facility] home. Chief Complaint Psychosis Review of Systems Sleep Information Total Hours of Sleep: 8 Sleep Comments: HS Klonopin Meal Information Percent Meal Consumed - Breakfast: 75 Percent Meal Consumed - Lunch: 0 Percent Meal Consumed - Dinner: 0 Nutrition Comment: Ate 2 boiled eggs Subjective Subjective Patient was seen & assessed and interval progress reviewed with treatment team nursing and social work Nursing reported patient has been walking with staff and is slightly more interactive. Every morning he is kneeling and praying on the floor. He slept 8 hours last night. Has been more appropriate with staff. Had a small bowel movement yesterday. On interview he reports voices have been controlled and less bothersome. He denies SI. He reports a small bowel movement however not complete. When asked about his communication with God he reports it is a "private matter". He denies having any commands from God and that it was more of a discussion. He reports feeling more tired recently since increase in clozapine. Physical Exam Mental Examination Appearance: Disheveled Eye Contact: Maintains Eye Contact Motor Behavior: Unremarkable Speech: Normal Mood: Euthymic and Calm Affect: Blunted Thought Process: [place], Poverty of Content and Slowed Thinking Thought Content: Poverty of Content (delusional thoughts) Hallucinations: Auditory (would not disclose details) Insight: Poor Judgement: Poor Vital Signs (Past 24 Hours) Last Vital Signs Temp 36.7 C 02/17/24 06:32 Pulse 75 02/17/24 06:33 Resp 16 02/17/24 06:32 BP 123/76 02/17/24 06:33 Pulse Ox 97 02/13/24 06:00 O2 Del Method Room Air 02/13/24 06:00 Results & Data ([facility]) Laboratory Results Laboratory Results - last 24 hr 02/17/24 08:36 WBC 8.39 RBC 4.52 L Hgb 13.6 L Hct 41.3 L MCV 91.4 MCH 30.1 MCHC 32.9 RDW Std Deviation 41.5 RDW Coeff of Kay 12.7 Plt Count 183 MPV 11.9 Immature Gran % (Auto) 0.5 Neut % (Auto) 57.7 Lymph % (Auto) 25.0 [place] % (Auto) 10.4 Eos % (Auto) 6.0 Baso % (Auto) 0.4 Neut # (Auto) 4.85 Lymph # (Auto) 2.10 [place] # (Auto) 0.87 H Eos # (Auto) 0.50 Baso # (Auto) 0.03 Immature Gran # (Auto) 0.04 Current Inpatient Medications Current Inpatient Medications: Current Inpatient Medications Acetaminophen (Acetaminophen 325 Mg Tab) 650 mg PO Q4H PRN PRN Reason: Headache or Minor Fever Stop: 03/11/24 13:43 Al Hydrox/Mg Hydrox/Simethicone (Aluminum/Magnesium Susp 30 Ml Udc) 30 ml PO Q4H PRN PRN Reason: GI Upset Stop: 03/11/24 13:43 Albuterol (Albuterol Hfa 8 Gm Inhaler) 2 puffs INH Q6H PRN PRN Reason: Wheezing Stop: 03/11/24 14:31 Atorvastatin Calcium (Atorvastatin 40 Mg Tab) 40 mg PO HS [facility] Stop: 03/11/24 21:59 Last Admin: 02/16/24 20:59 Dose: 40 mg Benztropine Mesylate (Benztropine Mesylate 0.5 Mg Tab) 0.5 mg PO BID PRN PRN Reason: muscle stiffness/EPS Stop: 03/11/24 20:59 Bismuth Subsalicylate (Bismuth Subsalicylate 262 Mg Chew) 2 tab PO Q30M PRN PRN Reason: Loose Stool/Diarrhea Stop: 03/11/24 13:43 Clonazepam (Clonazepam 1 Mg Tab) 1 mg PO PM [facility] Stop: 03/11/24 20:59 Last Admin: 02/16/24 20:58 Dose: 1 mg Clozapine (Clozapine 25 Mg Tab) 150 mg PO HS [facility]; Protocol Stop: 03/18/24 21:59 Cyanocobalamin (Cyanocobalamin (B-12) 100 Mcg Tablet) 100 mcg PO QAM [facility] Stop: 03/17/24 10:29 Last Admin: 02/17/24 08:57 Dose: 100 mcg Hydroxyzine HCl (Hydroxyzine Hcl 25 Mg Tab) 50 mg PO HSZ PRN PRN Reason: Insomnia Stop: 03/11/24 13:43 Hydroxyzine HCl (Hydroxyzine Hcl 25 Mg Tab) 25 mg PO Q4H PRN PRN Reason: Anxiety Stop: 03/11/24 13:43 Levothyroxine Sodium (Levothyroxine Sodium 25 Mcg Tablet) 25 mcg PO DAILYBB [facility] Stop: 03/12/24 07:59 Last Admin: 02/17/24 08:57 Dose: 25 mcg Lisinopril (Lisinopril 20 Mg Tab) 20 mg PO QAM [facility] Stop: 03/12/24 08:59 Last Admin: 02/17/24 08:57 Dose: 20 mg Lorazepam (Lorazepam 1 Mg Tab) 1 mg PO TID PRN PRN Reason: Anxiety/Agitation Stop: 03/11/24 14:39 Magnesium Hydroxide (Magnesium Hydroxide Susp 30 Ml Udc) 30 ml PO DAILY PRN PRN Reason: Constipation Stop: 03/11/24 13:43 Meloxicam (Meloxicam 7.5 Mg Tab) 15 mg PO HS [facility] Stop: 03/15/24 21:59 Last Admin: 02/16/24 20:58 Dose: 15 mg Metformin HCl (Metformin Hcl 500 Mg Tab) 1,000 mg PO BID17 [facility] Stop: 03/11/24 16:59 Last Admin: 02/17/24 08:57 Dose: 1,000 mg Multivitamins (Multivitamin Tab) 1 tab PO DAILY [facility] Stop: 03/12/24 08:59 Last Admin: 02/17/24 08:57 Dose: 1 tab Olanzapine (Olanzapine Zydis 5 Mg Orally Dis. Tab) 5 mg PO BID PRN PRN Reason: paranoia/psychosis Stop: 03/11/24 20:59 Last Admin: 02/10/24 15:09 Dose: 5 mg Ondansetron HCl (Ondansetron 4 Mg Od Tab) 4 mg PO Q6H PRN PRN Reason: Nausea Stop: 03/12/24 09:00 Paroxetine HCl (Paroxetine Hcl 10 Mg Tab) 30 mg PO BID@0900,1600 [facility] Stop: 03/15/24 15:59 Last Admin: 02/17/24 08:57 Dose: 30 mg Polyethylene Glycol (Polyethylene (Miralax) 17 Gm Pack) 17 gm PO DAILY [facility] Stop: 03/17/24 10:29 Last Admin: 02/17/24 08:58 Dose: 17 gm Psyllium Hydrophilic Mucilloid (Psyllium Or Guar Gum Fiber 4gm Packet) 4 gm PO QAM [facility] Stop: 03/17/24 10:29 Last Admin: 02/17/24 08:58 Dose: 4 gm Sodium Chloride (Sodium Chloride 0.65% Na Soln 45 Ml ([place])) 1 - 2 sprays NA PRN PRN PRN Reason: Nasal Dryness/Congestion Stop: 03/11/24 13:43 Tamsulosin HCl (Tamsulosin Hcl 0.4 Mg Cap) 0.4 mg PO QAM [facility] Stop: 03/12/24 08:59 Last Admin: 02/17/24 09:01 Dose: 0.4 mg Topiramate (Topiramate 50 Mg Tab) 50 mg PO BID [facility] Stop: 03/11/24 20:59 Last Admin: 02/17/24 09:01 Dose: 50 mg Vitamin D (Cholecalciferol 25 Mcg (1000 Units) Tab) 50 mcg PO DAILY [facility] Stop: 03/12/24 08:59 Last Admin: 02/17/24 08:57 Dose: 50 mcg Mental Health & Subst Abuse Tx Psychiatrist [facility] [place] Psych[facility]'s Date Of Appointment With Psychiatric Provider: 02/23/2024 Time of Appointment with Psychiatrist: 10:35AM Psychiatric Appointment Comment: In person appointment Therapist Name of Therapist: None Fugitive Detective Name of Fugitive Detective: None Post Discharge Appointments Primary Care Physician Name Of Family Doctor/PCP: Christel madrigal [facility]-Dr. Martinez Primary Care Date of Future Appointment with PCP: 02/25/2024 Time of Appointment with PCP: 11AM Provider Appointment Comment: 10:45AM arrival time
[2024-02-17] MEDS: cloZAPine 25 MG TAB PO SCH (20:56)
--- NOTE | 2024-02-18 12:00 | Psychiatric Progress Note ---
Date of Service February 18, 2024 Impression / Recommendations Impression REBA KELLY is a 68 year-old man who currently lives in [facility], has a history of schizophrenia, and was admitted on 02/10/24 12:45 on a 201 voluntary commitment for acute psychosis with poor sleep and feeling unsafe at his supportive living home. Diagnostically consistent with acute exacerbation of schizophrenia vs schizoaffective disorder in the context of medication non-adherence. Timeline for clozapine discontinuation varies, collateral reports last taken about one week ago, Reba states he only missed one dose. Given his thought blocking, loosening of associations and worsened psychosis, trust collateral that timeline likely closer to one week. Given this will re-titrate clozapine which he is agreeable to. ANC reviewed and stable, given interruption was <30 days he can continue on his [facility] schedule of monthly blood draws for ANC. A: Concern for some denominational preoccupation. Has been overall appropriate with staff and now engaging more outside of his room. Continued chronic auditory hallucinations which have been rated as less bothersome to the patient recently. At baseline has infrequent bowel movements, likely due to clozapine. Plan for Senna PRN. Will further titrate clozapine today. Visited by facility rep and appears closer to baseline function. MNPR due to acute psychosis with bizarre movements and shouting intermittently that are disruptive to others Overall, I spent a total of 40 minutes on this case including meeting with the patient, reviewing the chart, nursing report, multidisciplinary team meeting, orders, and documentation. (1) Psychosis: (2) Schizophrenia: (3) Hypertension: (4) Hyperlipidemia: (5) Constipation: Plan 02/18/2024: Increase Clozapine to 175mg at bedtime. Senna PRN for constipation. 02/17/2024: Increase Clozapine to 150 mg at bedtime. 02/16/2024: Continue Clozapine. Start MiraLAX daily scheduled and psyllium Husk daily scheduled. 02/15/2024: Discontinue daily clonazepam as needed. 02/14/2024: Increase Clozapine to 125 mg at bedtime. 02/13/2024: Increase clozapine to 100mg HS 02/12/2024: Increase clozapine to 75mg HS. 02/11/2024: The patient was admitted to the [facility] ([facility]) on q15 min checks (behavioral with suicide precautions) for safety. The patient will participate in group, recreational, and milieu therapies and will be offered additional individual and family sessions as clinically appropriate. -Restart clozapine, will titrate given discontinuation of at least one week. Start 50mg HS po -Fasting HbA1c and lipid panel tomorrow AM, Vit D, Vit B12 -Continue prior to admission Paxil 30mg BID (seems he has been adherent with this) -Restart Klonopin 1mg qPM (may consider dose reduction if signs of increased sedation) -Continue Klonopin 1mg daily prn for anxiety/restlessness -Olanzapine 5mg po BID ODT for agitation/psychosis -Cogentin prn for muscle stiffness Inventory Assets Strengths: supportive relationships, willing to get treatment Needs: safety and stabilization, medication adjustment, additional coping skills, increased outpatient services Suicide Risk Level Suicide Risk Level: Moderate (q15 min suicide checks) (denies SI but with acute psychosis and responding to internal stimuli, feels safe in the hospital, feels able to call out to staff) Suicide Risk Level Comments: Risk Factors Assessment Male: Yes : Yes Do You Have Access To A Gun?: No Health Problems: Yes Mental Health Diagnoses: Yes Substance Use Disorders: No Previous Attempt: No Family History of Suicide: No Previous Psychiatric Hospitalization: Yes Hopelessness: No Protective Factors Assessment Employed: No Good Rapport with Provider: Yes Interval History Identifying Information REBA KELLY is a 68-year-old man who currently lives in [facility], has a history of schizophrenia, and was admitted on 02/10/24 12:45 on a 201 voluntary commitment for acute psychosis with poor sleep and feeling unsafe at his supportive living home. Chief Complaint Psychosis Review of Systems Sleep Information Total Hours of Sleep: 7.30 Sleep Comments: HS Klonopin Meal Information Percent Meal Consumed - Breakfast: 0 Percent Meal Consumed - Lunch: 75 Percent Meal Consumed - Dinner: 75 Nutrition Comment: "not that hungry" Subjective Subjective Patient was seen & assessed and interval progress reviewed with treatment team nursing and social work Nursing reported patient slept 7.5 hours. He was visited by Roseanne from [facility]. She reported that he does not normally kneel and pray in the mornings at home. He was reassured that he can go back home. On interview patient is agreeable to return back to his facility. He reports sleeping well and denies anxiety. Reports generalized fear of the future and the unknown. Reports voices have not been bothersome. He denies SI. He denies having stomach pains. He reports a baseline having bowel movements every 4 to 5 days. Says that he has been hydrating regularly. Denies having bowel movement yesterday or today. Physical Exam Mental Examination Appearance: Disheveled Eye Contact: Maintains Eye Contact Motor Behavior: Unremarkable Speech: Normal Mood: Euthymic and Calm Affect: Blunted Thought Process: [place] and Slowed Thinking Thought Content: Poverty of Content Hallucinations: Auditory (guarded about details) Insight: Poor (to limited, improved) Judgement: Poor (to limited, improved) Vital Signs (Past 24 Hours) Last Vital Signs Temp 36.9 C 02/18/24 06:35 Pulse 73 02/18/24 06:36 Resp 16 02/18/24 06:35 BP 127/82 02/18/24 06:36 Pulse Ox 97 02/13/24 06:00 O2 Del Method Room Air 02/13/24 06:00 Results & Data ([facility]) Current Inpatient Medications Current Inpatient Medications: Current Inpatient Medications Acetaminophen (Acetaminophen 325 Mg Tab) 650 mg PO Q4H PRN PRN Reason: Headache or Minor Fever Stop: 03/11/24 13:43 Al Hydrox/Mg Hydrox/Simethicone (Aluminum/Magnesium Susp 30 Ml Udc) 30 ml PO Q4H PRN PRN Reason: GI Upset Stop: 03/11/24 13:43 Albuterol (Albuterol Hfa 8 Gm Inhaler) 2 puffs INH Q6H PRN PRN Reason: Wheezing Stop: 03/11/24 14:31 Atorvastatin Calcium (Atorvastatin 40 Mg Tab) 40 mg PO HS [facility] Stop: 03/11/24 21:59 Last Admin: 02/17/24 20:57 Dose: 40 mg Benztropine Mesylate (Benztropine Mesylate 0.5 Mg Tab) 0.5 mg PO BID PRN PRN Reason: muscle stiffness/EPS Stop: 03/11/24 20:59 Bismuth Subsalicylate (Bismuth Subsalicylate 262 Mg Chew) 2 tab PO Q30M PRN PRN Reason: Loose Stool/Diarrhea Stop: 03/11/24 13:43 Clonazepam (Clonazepam 1 Mg Tab) 1 mg PO PM [facility] Stop: 03/11/24 20:59 Last Admin: 02/17/24 20:54 Dose: 1 mg Clozapine (Clozapine 25 Mg Tab) 150 mg PO HS [facility]; Protocol Stop: 03/18/24 21:59 Last Admin: 02/17/24 20:56 Dose: 150 mg Cyanocobalamin (Cyanocobalamin (B-12) 100 Mcg Tablet) 100 mcg PO QAM [facility] Stop: 03/17/24 10:29 Last Admin: 02/18/24 09:52 Dose: 100 mcg Hydroxyzine HCl (Hydroxyzine Hcl 25 Mg Tab) 50 mg PO HSZ PRN PRN Reason: Insomnia Stop: 03/11/24 13:43 Hydroxyzine HCl (Hydroxyzine Hcl 25 Mg Tab) 25 mg PO Q4H PRN PRN Reason: Anxiety Stop: 03/11/24 13:43 Levothyroxine Sodium (Levothyroxine Sodium 25 Mcg Tablet) [facility] Stop: 03/12/24 07:59 Last Admin: 02/18/24 09:51 Dose: 25 mcg Lisinopril (Lisinopril 20 Mg Tab) [facility] Stop: 03/12/24 08:59 Last Admin: 02/18/24 09:52 Dose: 20 mg Lorazepam (Lorazepam 1 Mg Tab) 1 mg PO TID PRN PRN Reason: Anxiety/Agitation Stop: 03/11/24 14:39 Magnesium Hydroxide (Magnesium Hydroxide Susp 30 Ml Udc) 30 ml PO DAILY PRN PRN Reason: Constipation Stop: 03/11/24 13:43 Meloxicam (Meloxicam 7.5 Mg Tab) 15 mg PO [facility] Stop: 03/15/24 21:59 Last Admin: 02/17/24 20:55 Dose: 15 mg Metformin HCl (Metformin Hcl 500 Mg Tab) 1,000 mg PO BID17 [facility] Stop: 03/11/24 16:59 Last Admin: 02/18/24 09:52 Dose: 1,000 mg Multivitamins (Multivitamin Tab) 1 tab PO DAILY [facility] Stop: 03/12/24 08:59 Last Admin: 02/18/24 09:52 Dose: 1 tab Olanzapine (Olanzapine Zydis 5 Mg Orally Dis. Tab) 5 mg PO BID PRN PRN Reason: paranoia/psychosis Stop: 03/11/24 20:59 Last Admin: 02/10/24 15:09 Dose: 5 mg Ondansetron HCl (Ondansetron 4 Mg Od Tab) 4 mg PO Q6H PRN PRN Reason: Nausea Stop: 03/12/24 09:00 Paroxetine HCl (Paroxetine Hcl 10 Mg Tab) 30 mg PO BID@0900,1600 [facility] Stop: 03/15/24 15:59 Last Admin: 02/18/24 09:52 Dose: 30 mg Polyethylene Glycol (Polyethylene (Miralax) 17 Gm Pack) 17 gm PO DAILY [facility] Stop: 03/17/24 10:29 Last Admin: 02/18/24 09:50 Dose: 17 gm Psyllium Hydrophilic Mucilloid (Psyllium Or Guar Gum Fiber 4gm Packet) 4 gm PO QAM [facility] Stop: 03/17/24 10:29 Last Admin: 02/18/24 09:50 Dose: 4 gm Sodium Chloride (Sodium Chloride 0.65% Na Soln 45 Ml ([place])) 1 - 2 sprays NA PRN PRN PRN Reason: Nasal Dryness/Congestion Stop: 03/11/24 13:43 Tamsulosin HCl (Tamsulosin Hcl 0.4 Mg Cap) 0.4 mg PO QAM [facility] Stop: 03/12/24 08:59 Last Admin: 02/18/24 09:53 Dose: 0.4 mg Topiramate (Topiramate 50 Mg Tab) 50 mg PO BID [facility] Stop: 03/11/24 20:59 Last Admin: 02/18/24 09:53 Dose: 50 mg Vitamin D (Cholecalciferol 25 Mcg (1000 Units) Tab) 50 mcg PO DAILY [facility] Stop: 03/12/24 08:59 Last Admin: 02/18/24 09:51 Dose: 50 mcg Mental Health & Subst Abuse Tx Psychiatrist Name of Psychiatrist: Connor ([facility] [place])Conner Psychiatrist's Date Of Appointment With Psychiatric Provider: 02/23/2024 Time of Appointment with Psychiatrist: 10:35AM Psychiatric Appointment Comment: In person appointment Therapist Name of Therapist: None Refrigerating Engineer Head Name of Refrigerating Engineer Head: None Post Discharge Appointments Primary Care Physician Name Of Family Doctor/PCP: Christel Mccollum-Dr. Martinez Primary [facility] Date of Future Appointment with PCP: 02/25/2024 Time of Appointment with PCP: 11AM Provider Appointment Comment: 10:45AM arrival time
[2024-02-18] MEDS: SENNA 8.6 MG TAB PO ONE (13:35)
[2024-02-18] MEDS: cloZAPine 25 MG TAB PO SCH (21:07)
--- NOTE | 2024-02-19 12:10 | Psychiatric Progress Note ---
Date of Service February 19, 2024 Impression / Recommendations Impression REBA KELLY is a 68 year-old man who currently lives in [facility], has a history of schizophrenia, and was admitted on 02/10/24 12:45 on a 201 voluntary commitment for acute psychosis with poor sleep and feeling unsafe at his supportive living home. Diagnostically consistent with acute exacerbation of schizophrenia vs schizoaffective disorder in the context of medication non-adherence. Timeline for clozapine discontinuation varies, collateral reports last taken about one week ago, Reba states he only missed one dose. Given his thought blocking, loosening of associations and worsened psychosis, trust collateral that timeline likely closer to one week. Given this will re-titrate clozapine which he is agreeable to. ANC reviewed and stable, given interruption was <30 days he can continue on his [facility] schedule of monthly blood draws for ANC. A: Chronic auditory hallucinations controlled and appear to be at baseline. Concern for some mild pentecostalism preoccupation however no behavioral issues. Previous motor and vocal tics resolved. Senna was effective for constipation and we will plan to prescribe on an ongoing basis as a as needed. Planning for discharge tomorrow back to facility. Will further up titrate Clozapine today. MNPR due to acute psychosis with bizarre movements and shouting intermittently that are disruptive to others Overall, I spent a total of 40 minutes on this case including meeting with the patient, reviewing the chart, nursing report, multidisciplinary team meeting, orders, and documentation. (1) Psychosis: (2) Schizophrenia: (3) Hypertension: (4) Hyperlipidemia: (5) Constipation: Plan 02/19/2024: Increase Clozapine to 200 mg at bedtime. Will continue monthly blood draws. Discontinue Cogentin PRN. 02/18/2024: Increase Clozapine to 175mg at bedtime. Senna PRN for constipation. 02/17/2024: Increase Clozapine to 150 mg at bedtime. 02/16/2024: Continue Clozapine. Start MiraLAX daily scheduled and psyllium Husk daily scheduled. 02/15/2024: Discontinue daily clonazepam as needed. 02/14/2024: Increase Clozapine to 125 mg at bedtime. 02/13/2024: Increase clozapine to 100mg HS 02/12/2024: Increase clozapine to 75mg HS. 02/11/2024: The patient was admitted to the [facility] (locked inpatient mental health unit) on q15 min checks (behavioral with suicide precautions) for safety. The patient will participate in group, recreational, and milieu therapies and will be offered additional individual and family sessions as clinically appropriate. -Restart clozapine, will titrate given discontinuation of at least one week. Start 50mg HS po -Fasting HbA1c and lipid panel tomorrow AM, Vit D, Vit B12 -Continue prior to admission Paxil 30mg BID (seems he has been adherent with this) -Restart Klonopin 1mg qPM (may consider dose reduction if signs of increased sedation) -Continue Klonopin 1mg daily prn for anxiety/restlessness -Olanzapine 5mg po BID ODT for agitation/psychosis -Cogentin prn for muscle stiffness Inventory Assets Strengths: supportive relationships, willing to get treatment Needs: safety and stabilization, medication adjustment, additional coping skills, increased outpatient services Suicide Risk Level Suicide Risk Level: Moderate (q15 min suicide checks) (denies SI but with acute psychosis and responding to internal stimuli, feels safe in the hospital, feels able to call out to staff) Suicide Risk Level Comments: Risk Factors Assessment Male: Yes : Yes Do You Have Access To A Gun?: No Health Problems: Yes Mental Health Diagnoses: Yes Substance Use Disorders: No Previous Attempt: No Family History of Suicide: No Previous Psychiatric Hospitalization: Yes Hopelessness: No Protective Factors Assessment Employed: No Good Rapport with Provider: Yes Interval History Identifying Information REBA KELLY is a 68-year-old man who currently lives in [facility], has a history of schizophrenia, and was admitted on 02/10/24 12:45 on a 201 voluntary commitment for acute psychosis with poor sleep and feeling unsafe at his supportive living home. Chief Complaint "Good" Review of Systems Sleep Information Total Hours of Sleep: 7.75 Sleep Comments: HS Klonopin Meal Information Percent Meal Consumed - Breakfast: 90 Percent Meal Consumed - Lunch: 50 Percent Meal Consumed - Dinner: 100 Nutrition Comment: "not that hungry" Subjective Subjective Patient was seen & assessed and interval progress reviewed with treatment team nursing and social work Patient had a bowel movement this a.m. and was full. Reports regular consistency. Was seen praying on the floor by nursing staff. Reports sleeping well. Says voices are controlled. Has been hydrating regularly. Reports decrease sedation from positive pain. He denies SI. Is open to returning back to his facility. Physical Exam Mental Examination Appearance: Disheveled Eye Contact: Maintains Eye Contact Motor Behavior: Unremarkable Speech: Normal Mood: Euthymic and Calm Affect: Blunted Thought Process: [place] and Slowed Thinking Thought Content: Poverty of Content Hallucinations: Auditory (guarded about details) Insight: Poor (to limited, improved) Judgement: Poor (to limited, improved) Vital Signs (Past 24 Hours) Last Vital Signs Temp 36.8 C 02/19/24 06:31 Pulse 72 02/19/24 06:32 Resp 16 02/19/24 06:31 BP 133/74 02/19/24 06:32 Pulse Ox 97 02/13/24 06:00 O2 Del Method Room Air 02/13/24 06:00 Results & Data ([facility]) Current Inpatient Medications Current Inpatient Medications: Current Inpatient Medications Acetaminophen (Acetaminophen 325 Mg Tab) 650 mg PO Q4H PRN PRN Reason: Headache or Minor Fever Stop: 03/11/24 13:43 Al Hydrox/Mg Hydrox/Simethicone (Aluminum/Magnesium Susp 30 Ml Udc) 30 ml PO Q4H PRN PRN Reason: GI Upset Stop: 03/11/24 13:43 Albuterol (Albuterol Hfa 8 Gm Inhaler) 2 puffs INH Q6H PRN PRN Reason: Wheezing Stop: 03/11/24 14:31 Atorvastatin Calcium (Atorvastatin 40 Mg Tab) 40 mg PO HS [facility] Stop: 03/11/24 21:59 Last Admin: 02/18/24 21:06 Dose: 40 mg Bismuth Subsalicylate (Bismuth Subsalicylate 262 Mg Chew) 2 tab PO Q30M PRN PRN Reason: Loose Stool/Diarrhea Stop: 03/11/24 13:43 Clonazepam (Clonazepam 1 Mg Tab) 1 mg PO PM [facility] Stop: 03/11/24 20:59 Last Admin: 02/18/24 21:11 Dose: 1 mg Clozapine (Clozapine 100 Mg Tab) 200 mg PO HS [facility]; Protocol Stop: 03/20/24 21:59 Cyanocobalamin (Cyanocobalamin (B-12) 100 Mcg Tablet) 100 mcg PO QAM [facility] Stop: 03/17/24 10:29 Last Admin: 02/19/24 09:01 Dose: 100 mcg Hydroxyzine HCl (Hydroxyzine Hcl 25 Mg Tab) 50 mg PO HSZ PRN PRN Reason: Insomnia Stop: 03/11/24 13:43 Hydroxyzine HCl (Hydroxyzine Hcl 25 Mg Tab) 25 mg PO Q4H PRN PRN Reason: Anxiety Stop: 03/11/24 13:43 Levothyroxine Sodium (Levothyroxine Sodium 25 Mcg Tablet) 25 mcg PO DAILYBB [facility] Stop: 03/12/24 07:59 Last Admin: 02/19/24 09:01 Dose: 25 mcg Lisinopril (Lisinopril 20 Mg Tab) 20 mg PO QAM [facility] Stop: 03/12/24 08:59 Last Admin: 02/19/24 09:01 Dose: 20 mg Lorazepam (Lorazepam 1 Mg Tab) 1 mg PO TID PRN PRN Reason: Anxiety/Agitation Stop: 03/11/24 14:39 Magnesium Hydroxide (Magnesium Hydroxide Susp 30 Ml Udc) 30 ml PO DAILY PRN PRN Reason: Constipation Stop: 03/11/24 13:43 Meloxicam (Meloxicam 7.5 Mg Tab) 15 mg PO HS [facility] Stop: 03/15/24 21:59 Last Admin: 02/18/24 21:09 Dose: 15 mg Metformin HCl (Metformin Hcl 500 Mg Tab) 1,000 mg PO BID17 [facility] Stop: 03/11/24 16:59 Last Admin: 02/19/24 09:02 Dose: 1,000 mg Multivitamins (Multivitamin Tab) 1 tab PO DAILY [facility] Stop: 03/12/24 08:59 Last Admin: 02/19/24 09:02 Dose: 1 tab Olanzapine (Olanzapine Zydis 5 Mg Orally Dis. Tab) 5 mg PO BID PRN PRN Reason: paranoia/psychosis Stop: 03/11/24 20:59 Last Admin: 02/10/24 15:09 Dose: 5 mg Ondansetron HCl (Ondansetron 4 Mg Od Tab) 4 mg PO Q6H PRN PRN Reason: Nausea Stop: 03/12/24 09:00 Paroxetine HCl (Paroxetine Hcl 10 Mg Tab) 30 mg PO BID@0900,1600 [facility] Stop: 03/15/24 15:59 Last Admin: 02/19/24 09:02 Dose: 30 mg Polyethylene Glycol (Polyethylene (Miralax) 17 Gm Pack) 17 gm PO DAILY [facility] Stop: 03/17/24 10:29 Last Admin: 02/19/24 09:02 Dose: 17 gm Psyllium Hydrophilic Mucilloid (Psyllium Or Guar Gum Fiber 4gm Packet) 4 gm PO QAM [facility] Stop: 03/17/24 10:29 Last Admin: 02/19/24 09:03 Dose: 4 gm Sodium Chloride (Sodium Chloride 0.65% Na Soln 45 Ml ([place])) 1 - 2 sprays NA PRN PRN PRN Reason: Nasal Dryness/Congestion Stop: 03/11/24 13:43 Tamsulosin HCl (Tamsulosin Hcl 0.4 Mg Cap) 0.4 mg PO QAM [facility] Stop: 03/12/24 08:59 Last Admin: 02/19/24 09:03 Dose: 0.4 mg Topiramate (Topiramate 50 Mg Tab) 50 mg PO BID [facility] Stop: 03/11/24 20:59 Last Admin: 02/19/24 09:03 Dose: 50 mg Vitamin D (Cholecalciferol 25 Mcg (1000 Units) Tab) 50 mcg PO DAILY [facility] Stop: 03/12/24 08:59 Last Admin: 02/19/24 09:01 Dose: 50 mcg Mental Health & Subst Abuse Tx Psychiatrist [facility]Conner Psychiatrist's Date Of Appointment With Psychiatric Provider: 02/23/2024 Time of Appointment with Psychiatrist: 10:35AM Psychiatric Appointment Comment: In person appointment Therapist Name of Therapist: None County Auditor Name of County Auditor: None Post Discharge Appointments Primary Care Physician Name Of Family Doctor/PCP: Christel madrigal [facility]-Dr. Martinez Primary Care Date of Future Appointment with PCP: 02/25/2024 Time of Appointment with PCP: 11AM Provider Appointment Comment: 10:45AM arrival time
[2024-02-19] MEDS: cloZAPine 100 MG TAB PO SCH (21:22)
--- NOTE | 2024-02-20 06:38 | Discharge Summary ---
Date of Service February 20, 2024 History of Present Illness Bhanu was brought to the emergency department from [facility] due to concerns for worsening psychosis, decreased sleep and shinto preoccupation after starting to refuse his psychiatric medications in mid-January. He has been thrashing about in bed, yelling out intermittently, asks to be called Armen. He is not a good historian, collateral from his supportive living environment noted that he reported the TV told him recently not to take his medications and thus stopping taking these. Tells me he thinks he stopped his clozapine because it can make him groggy but he's agreeable to restarting this. He isn't sure why he stopped the Klonopin but agrees he did. Often responds to questions with "I don't know". Asked about hallucinations reports "I don't want to elaborate on that". Tells me he doesn't want to return to [facility] as "I'm fed up with the place, that's all I can say" and that he likes his roommates and the staff but not the "attitude of the place". Denies having a case coordinator and declines interest in this. Tells me he has been "having a few difficulties I think, I guess we'll find out if the treatment works". Thinks he slept a little more last night but recalls waking up early. Per collateral has been psychiatrically stable for quite some time on his outpatient psychiatric medication regimen which includes: clozapine 200mg HS, Klonopin 1mg PM, Paxil 30mg BID and Cogentin prn. Further information per ED CM note on 02/10/2024: "Pt lives at [facility] in supportive living. Spoke to Marion who cares for Neftaly. She reports that he is diagnosed with schizophrenia and has been stable for many years. Recently he stopped taking some of his medications, Marion knows he stopped his 4 pm does of Clonazepam but thinks there may be others he is not taking. Pt has been making statements such as, I am a sinner, I am damned. I have sinned against God. Marion reports that he has not been sleeping and his speech has been pressured. Last night he was asking to come to the hospital for a few days. Pt has no hx of aggression. Marion came to the ER and I met with her and the patient. Pt reported that he stopped taking his Clozaril about a week ago. Pt is able to understand that is why he is not doing well now. He reports that he will take medications if he is admitted to a psychiatric facility. Pt is able to participate in conversation and answer questions asked. He states my thoughts are all jumbled. He reports he does not feel safe going back to [facility] until he gets inpatient treatment to help him become more stable. Pt sees Haley at [facility] for Psychiatric care. His PCP is Christel Carvajal. Pt has no other providers. He is willing to sign himself in for treatment." Physical Exam Vital Signs (Past 24 Hours) Last Vital Signs Temp 36.8 C 02/19/24 06:31 Pulse 72 02/19/24 06:32 Resp 16 02/19/24 06:31 BP 133/74 02/19/24 06:32 Pulse Ox 97 02/13/24 06:00 O2 Del Method Room Air 02/13/24 06:00 Principal Diagnosis Schizophrneia Psychiatric Data See daily stay summary. In short, safety was maintained and the patient was cooperative with care. Medication changes included restarting home Clozapine 200mg HS, d/c AM clonazepam, modifying his bowel regimen d/t clozapine induced constipation which appears to have been chronic and they tolerated this well. The patient initially presented with shinto preoccupation asking to be called Armen, disorganized and disruptive behaviors, generalized muscle movements and grunting noises concerning for either tics or worsening of psychosis. There was concern patient has been non-adherent to medication recently. He was reinitiating on his medications including clozapine and titrated up slowly. He presented improvement in auditory hallucinations, motor/vocal tics and presented cooperative and more organized behaviors with good sleep. He continued to pray daily on a yoga mat however denied having commands from god or feeling as if he was god himself prior to discharge. ANC from blood draws have been within an appropriate range, recommending to continue monthly CBC blood draws. Day of Discharge Assessment Today the patient voices readiness for discharge. They note improvement in mood and deny thoughts to harm self or others. Thoughts remain organized and they are improved from admission. There is no evidence of psychosis. They agree to take mediations as prescribed and keep follow-up appointments. They are stable for discharge to outpatient level of care. Transition of Care Transition Of Care Record: was reviewed with the patient Advance Directives Advance Directives Information Provided: Yes Advance Directives: No Mental Health Advance Directive: No Advance Directives on File: No Living Will: No Power of Lunchroom Monitor: No Advance Directives Reason:: Declines as Mental Health Visit. Suicide Risk Level Suicide Risk Level Comments: Risk Factors Assessment Male: Yes : Yes Do You Have Access To A Gun?: No Health Problems: Yes Mental Health Diagnoses: Yes Substance Use Disorders: No Previous Attempt: No Family History of Suicide: No Previous Psychiatric Hospitalization: Yes Hopelessness: No Protective Factors Assessment Employed: No Good Rapport with Provider: Yes Discharge Data Lab Results 02/10/24 02/10/24 02/10/24 04:04 04:09 04:40 WBC 10.69 RBC 4.97 Hgb 15.2 Hct 44.5 MCV 89.5 MCH 30.6 MCHC 34.2 RDW Std Deviation 42.3 RDW Coeff of Kay 12.9 Plt Count 204 MPV 11.6 Immature Gran % (Auto) 0.3 Neut % (Auto) 70.5 Lymph % (Auto) 18.6 [place] % (Auto) 8.6 Eos % (Auto) 1.6 Baso % (Auto) 0.4 Neut # (Auto) 7.54 H Lymph # (Auto) 1.99 [place] # (Auto) 0.92 H Eos # (Auto) 0.17 Baso # (Auto) 0.04 Immature Gran # (Auto) 0.03 Sodium 141 Potassium 3.3 L Chloride 112 H Carbon Dioxide 20 L Anion Gap 9 BUN 15 Creatinine 1.11 Est Cr Clr Drug Dosing 83.9 eGFR 73.24 BUN/Creatinine Ratio 13.5 Glucose 91 POC Glucose 100 H Estimat Average Glucose Hemoglobin A1c Calcium 9.5 Total Bilirubin 0.8 AST 34 ALT 25 Alkaline Phosphatase 100 Total Protein 7.6 Albumin 4.3 Globulin 3.3 Albumin/Globulin Ratio 1.3 Triglycerides Cholesterol LDL Cholesterol, Calc VLDL Cholesterol, Calc HDL Cholesterol Cholesterol/HDL Ratio Vitamin B12 25-OH Vitamin D Total TSH 2.237 Urine Color Urine Appearance Urine pH Ur Specific [place] Urine Protein Urine Glucose (UA) Urine Ketones Urine Blood Urine Nitrite Urine Bilirubin Urine Urobilinogen Ur Leukocyte Esterase Urine WBC (Auto) Urine RBC (Auto) U Hyaline Cast (Auto) U Epithel Cells (Auto) Urine Bacteria (Auto) Salicylates < 3.0 L Urine Opiates Screen Ur Methadone, Qual Urine Fentanyl Screen Acetaminophen < 3 L Urine Barbiturates Ur Phencyclidine (PCP) U Amphetamin/Meth Scrn MDMA (Ecstasy) Screen U Benzodiazepines Scrn Ur Cocaine Metabolite U Marijuana (THC) Screen Ethyl Alcohol mg/dL < 10.0 SARS-CoV-2, RNA, NAAT NEGATIVE 02/10/24 02/12/24 02/17/24 Unknown 08:15 08:36 WBC 8.39 RBC 4.52 L Hgb 13.6 L Hct 41.3 L MCV 91.4 MCH 30.1 MCHC 32.9 RDW Std Deviation 41.5 RDW Coeff of Kay 12.7 Plt Count 183 MPV 11.9 Immature Gran % (Auto) 0.5 Neut % (Auto) 57.7 Lymph % (Auto) 25.0 [place] % (Auto) 10.4 Eos % (Auto) 6.0 Baso % (Auto) 0.4 Neut # (Auto) 4.85 Lymph # (Auto) 2.10 [place] # (Auto) 0.87 H Eos # (Auto) 0.50 Baso # (Auto) 0.03 Immature Gran # (Auto) 0.04 Sodium Potassium Chloride Carbon Dioxide Anion Gap BUN Creatinine Est Cr Clr Drug Dosing eGFR BUN/Creatinine Ratio Glucose POC Glucose Estimat Average Glucose 123 Hemoglobin A1c 5.9 H Calcium Total Bilirubin AST ALT Alkaline Phosphatase Total Protein Albumin Globulin Albumin/Globulin Ratio Triglycerides 145 Cholesterol 102 LDL Cholesterol, Calc 45 VLDL Cholesterol, Calc 29 HDL Cholesterol 28 Cholesterol/HDL Ratio 3.6 Vitamin B12 218 25-OH Vitamin D Total 42.5 TSH Urine Color Yellow Urine Appearance Clear Urine pH 6.0 Ur Specific [place] 1.016 Urine Protein Trace H Urine Glucose (UA) Negative Urine Ketones Trace H Urine Blood Negative Urine Nitrite Negative Urine Bilirubin Negative Urine Urobilinogen Negative Ur Leukocyte Esterase Negative Urine WBC (Auto) 0-5 Urine RBC (Auto) 0-2 U Hyaline Cast (Auto) 0-2 U Epithel Cells (Auto) 0-2 Urine Bacteria (Auto) None Seen Salicylates Urine Opiates Screen Neg Ur Methadone, Qual Neg Urine Fentanyl Screen Neg Acetaminophen Urine Barbiturates Neg Ur Phencyclidine (PCP) Neg U Amphetamin/Meth Scrn Neg MDMA (Ecstasy) Screen Neg U Benzodiazepines Scrn Neg Ur Cocaine Metabolite Neg U Marijuana (THC) Screen Neg Ethyl Alcohol mg/dL SARS-CoV-2, RNA, NAAT Hospital Course (1) Psychosis: (2) Schizophrenia: (3) Hypertension: (4) Hyperlipidemia: (5) Constipation: Plan 02/19/2024: Increase Clozapine to 200 mg at bedtime. Will continue monthly blood draws. Discontinue Cogentin PRN. 02/18/2024: Increase Clozapine to 175mg at bedtime. Senna PRN for constipation. 02/17/2024: Increase Clozapine to 150 mg at bedtime. 02/16/2024: Continue Clozapine. Start MiraLAX daily scheduled and psyllium Husk daily scheduled. 02/15/2024: Discontinue daily clonazepam as needed. 02/14/2024: Increase Clozapine to 125 mg at bedtime. 02/13/2024: Increase clozapine to 100mg HS 02/12/2024: Increase clozapine to 75mg HS. 02/11/2024: The patient was admitted to the [facility]) on q15 min checks (behavioral with suicide precautions) for safety. The patient will participate in group, recreational, and milieu therapies and will be offered additional individual and family sessions as clinically appropriate. -Restart clozapine, will titrate given discontinuation of at least one week. Start 50mg HS po -Fasting HbA1c and lipid panel tomorrow AM, Vit D, Vit B12 -Continue prior to admission Paxil 30mg BID (seems he has been adherent with this) -Restart Klonopin 1mg qPM (may consider dose reduction if signs of increased sedation) -Continue Klonopin 1mg daily prn for anxiety/restlessness -Olanzapine 5mg po BID ODT for agitation/psychosis -Cogentin prn for muscle stiffness Mental Health & Subst Abuse Tx Psychiatrist Name of Psychiatrist: Connor ([facility]aley Psychiatrist's Date Of Appointment With Psychiatric Provider: 02/23/2024 Time of Appointment with Psychiatrist: 10:35AM Psychiatric Appointment Comment: In person appointment Therapist Name of Therapist: None Business Banking Sales Assistant Name of Business Banking Sales Assistant: None Post Discharge Appointments Primary Care Physician Name Of Family Doctor/PCP: Christel madrigal [facility] Primary [facility] Date of Future Appointment with PCP: 02/25/2024 Time of Appointment with PCP: 11AM Provider Appointment Comment: 10:45AM arrival time Specialist Name of Specialist: Podiatry Date of Appointment with Specialist: 02/24/24 Time of Appointment with Specialist: 9:15am Discharge Plan Discharge Items Patient Disposition: Personal Custodial Reason For Visit: SCHIZOPHRENIA Discharge Diagnosis: Schizophrenia: Hypertension: Hyperlipidemia: Condition on Discharge: Fair Activity: Resume your previous activity Non-emergency contact: Primary Care Provider and Psychiatrist Call non-emergency contact if: you have any medication questions and your symptoms worsen Follow-up/Referrals: [facility] [Primary Care Provider] - Diet: Regular Addtl Attending Provider Instructions: -Continue Clozapine 200mg at bedtime -Continue monthly CBC blood draws, next expected is 03/16/24 Changes from home medications: Discontinued daytime Klonopin, please only take 1mg at bedtime Pt is having constipation while on clozapine so please -Take Metamucil fiber supplement daily -Take Miralax daily -If unable to have a bowel movement, can take Senna NEEDED every 2 days for constipation. B12 supplement daily Pending Studies at Discharge: No Stand-Alone Forms: Scientific Revenue, Smoking Cessation Skilled Items Patient informed of condition?: Yes DNR: No Discharge Level of Care: Other Communicable Disease: No Discharge Prognosis: Stable Lines: None Urinary Catheter: No Medications and DC Order Prescriptions: New cyanocobalamin (vitamin B-12) [Vitamin B-12] 100 mcg Tablet 100 mcg PO QAM Qty: 30 0RF polyethylene glycol 3350 [Miralax] 17 gram Powder In Packet 17 g PO DAILY Qty: 30 0RF sennosides [senna] 8.6 mg tablet 8.6 mg PO Q2D PRN (Reason: constipation) Qty: 14 0RF Rx Instructions: 8.6 mg orally as needed every other day for constipation Metamucil 3.4 gram/5.4 gram powder 1 tbsp PO DAILY Qty: 660 0RF Rx Instructions: mix into at least 8 oz of water or juice before administering Continued atorvastatin 40 mg tablet 40 mg PO HS clonazepam 1 mg tablet 1 mg PO PM Rx Instructions: take at noon and 5pm levothyroxine 25 mcg tablet 25 mcg PO QAM tamsulosin 0.4 mg capsule 0.4 mg PO QAM paroxetine HCl 30 mg tablet 30 mg PO BID metformin 1,000 mg tablet 1,000 mg PO BID17 clozapine 200 mg tablet 200 mg PO HS cholecalciferol (vitamin D3) [Vitamin D3] 2,000 unit Capsule 2,000 unit PO QAM multivitamin [Daily-Izaiah] Tablet 1 tab PO DAILY lisinopril 20 mg tablet 20 mg PO DAILY acetaminophen 325 mg Tablet 650 mg PO Q4 MDD 3g PRN (Reason: Pain, Moderate) Anoro Ellipta 62.5-25 mcg/actuation blister with device 1 ea INHALATION DAILY meloxicam 15 mg tablet 15 mg PO DAILY albuterol sulfate 90 mcg/actuation HFA aerosol inhaler 2 puffs INH Q6H PRN (Reason: Wheezing) nicotine 21 mg/24 hr patch 24 hour 21 mg transdermal DAILY topiramate 50 mg tablet 50 mg PO BID Discontinued polyethylene glycol 3350 [Miralax] 17 gram Powder In Packet 17 g PO BID PRN (Reason: Constipation) benztropine 1 mg tablet 1 mg PO BID clonazepam 1 mg Tablet 1 mg PO DAILY PRN (Reason: Anxiety) cholecalciferol (vitamin D3) [Vitamin D3] 50 mcg (2,000 unit) Tablet 50 mcg PO DAILY Discharge Orders: Discharge Order (Routine); Ordered 02/20/24 Ordered By: Gregory Humphrey Admission Data Admit Date/Time: 02/10/24 12:45 Attending Provider: Gregory Humphrey Admit Provider: Jazz Orellana Primary Care Provider: Arnaud Bruner,[facility], [facility] Coding [place] [address] D/C day mgmt > 30 min Patient Type Established History Comprehensive Exam Comprehensive Medical Decision Making High Complexity Diagnoses Psychosis F29 Schizophrenia F20.9 Hypertension I10 Hyperlipidemia E78.5 Constipation K59.00
== END 2024-02-20 08:58 | disposition home or self-care (01) | DRG 885 ==
LOC: ED 03:47 → 3S 12:40 → SUATTDRO 12:45 → 3S 12:45

== ENCOUNTER 2024-08-30 15:54 | Inpatient (IN) ==
[2024-08-30 16:47] LABS: Basophils # (auto) 0.04 K/uL (0.00-0.20); Basophils % (auto) 0.5 %; Eosinophils # (auto) 0.43 K/uL (0.00-0.50); Eosinophils % (auto) 5.7 %; Hematocrit (blood only) 36.1 % (42.0-52.0); Hemoglobin 12.2 g/dl (14.0-18.0); Immature Granulocytes # (auto) 0.02 K/uL (0.01-0.20); Immature Granulocytes % (auto) 0.3 %; Lymphocytes # (auto) 1.86 K/uL (1.20-3.40); Lymphocytes % (auto) 24.4 %; Mean Corpuscular Hemoglobin 30.7 pg (25.0-34.0); Mean Corpuscular Hgb Conc 33.8 g/dL (32.0-36.0); Mean Corpuscular Volume 90.9 fL (80.0-100.0); Monocytes # (auto) 0.79 K/uL (0.11-0.59); Monocytes % (auto) 10.4 %; Neutrophils # (auto) 4.47 K/uL (1.40-6.50); Neutrophils % (auto) 58.7 %; Platelet Count 201 K/uL (130-400); RDW Coefficient of Variation 12.6 % (11.5-14.5); RDW Standard Deviation 41.5 fL (36.4-46.3); Red Blood Count 3.97 M/uL (4.70-6.10); White Blood Count 7.61 K/ul (4.8-10.8)
[2024-08-30 17:05] LABS: Alanine Aminotransferase 27 U/L (7-52); Albumin Globulin Ratio 1.6 (0.9-2); Alkaline Phosphatase 94 U/L (34-104); Anion Gap 7 (3-11); Aspartate Aminotransferase 26 U/L (13-39); BUN Creatinine Ratio 19.5 (10-20); Bilirubin,Total 0.3 mg/dl (0.2-1.0); Blood Urea Nitrogen 22 mg/dl (6-23); Calcium 9.2 mg/dl (8.6-10.3); Carbon Dioxide 23 mmol/L (21-32); Chloride 111 mmol/L (98-107); Globulin 2.6 gm/dl (2.5-4.0); Glucose 100 mg/dl (70-99(Fasting)); Potassium 3.9 mmol/L (3.5-5.1); Sodium 141 mmol/L (136-145); Total Protein 6.7 gm/dl (6.0-8.3)
[2024-08-30 17:08] LABS: Acetaminophen < 3 ug/ml (10-30); Salicylate < 3.0 mg/dl (3.0-30)
[2024-08-30 17:20] LABS: Thyroid Stimulating Hormone 1.294 uIu/ml (0.300-4.500)
--- NOTE | 2024-08-30 17:31 | CT Scan Report ---
Technique: Axial computed tomography images were obtained of the brain from the vertex to the skull base without intravenous contrast. Comparison is made to the prior CT dated 08/25/2024 Findings: There is no sign of intracranial hemorrhage. There is normal matthew-white matter differentiation with no sign of acute or old infarction. No midline shift or other form of herniation is identified. There is no hydrocephalus. No obvious mass lesion is seen on this noncontrast examination. The visualized portions of the orbits and paranasal sinuses appear unremarkable. The mastoid air cells appear clear Impression: Unremarkable noncontrast CT of the brain Electronically signed by Pieter Garcia 08-30-2024 5:30 PM
[2024-08-30 17:35] LABS: Appearance Urine Clear (Clear); Bacteria Urine Automated None Seen (None Seen); Bilirubin Urine 1+ (Negative); Blood Urine Negative (Negative); Calcium Oxalate Crystals Urine Present (None Prsent); Color Urine Dark Yellow; Epithelial Cell Urine Auto 0-2 /hpf (0-2); Glucose Urine UA Negative (Negative); Ketones Urine 1+ (Negative); Leukocyte Esterase Urine Negative (Negative); Mucus Urine Present (None Prsent); Nitrite Urine Negative (Negative); Protein Urine Trace (Negative); RBC Urine Automated 0-2 /hpf (0-2); Urobilinogen Urine Negative (Negative); WBC Urine Automated 0-5 /hpf (0-5)
[2024-08-30 18:21] LABS: Amphetamines+Metham, Urine Neg (Neg); Barbiturates, Urine Neg (Neg); Benzodiazepine, Urine Neg (Neg); Cocaine, Urine Neg (Neg); Fentanyl, Urine Neg (Neg); MDMA (Ecstacy), Urine Neg (Neg); Marijuana, Urine Neg (Neg); Methadone, Urine Neg (Neg); Opiate, Urine Neg (Neg); Phencyclidine, Urine Neg (Neg)
--- NOTE | 2024-08-30 19:38 | Emergency Department Note ---
History of Present Illness General Chief complaint: Mental Health Evaluation Stated complaint: MHE Time Seen by Provider: 08/30/24 16:05 History of Present Illness Provider complaint: Mental health evaluation 69-year-old male presents emergency department for mental health evaluation. Patient was reportedly urinating on the floor, flooding his own toilet, and eating dirt out of flowerpots at his extended care facility. Patient was brought here on a 302 by his facility. Home Medications Medication Instructions Recorded Confirmed Type atorvastatin 40 mg tablet 40 mg PO HS 04/19/18 08/30/24 History cholecalciferol (vitamin D3) 50 2,000 unit PO QAM 04/19/18 08/30/24 History mcg (2,000 unit) capsule (Vitamin D3) clozapine 200 mg tablet 200 mg PO HS 04/19/18 08/30/24 History levothyroxine 25 mcg tablet 25 mcg PO QAM 04/19/18 08/30/24 History metformin 1,000 mg tablet 1,000 mg PO BID17 04/19/18 08/30/24 History multivitamin (Daily-Izaiah tablet) 1 tab PO DAILY 06/13/19 08/30/24 History acetaminophen 325 mg tablet 650 mg PO Q4 PRN Pain, Moderate 12/07/20 08/30/24 History lisinopril 20 mg tablet 20 mg PO DAILY 12/07/20 08/30/24 History meloxicam 15 mg tablet 15 mg PO DAILY pain 02/10/24 08/30/24 History topiramate 50 mg tablet 50 mg PO BID 02/10/24 08/30/24 History cyanocobalamin (vitamin B-12) 100 100 mcg PO QAM #30 tabs 02/19/24 08/30/24 Rx mcg tablet (Vitamin B-12) polyethylene glycol 3350 17 gram 17 g PO DAILY #30 ea 02/19/24 08/30/24 Rx oral powder packet (Miralax) sennosides 8.6 mg tablet (senna) 8.6 mg PO Q2D PRN constipation #14 02/19/24 08/30/24 Rx tabs bismuth subsalicylate 525 mg/15 mL 525 mg PO DIRECTED PRN Upset 07/20/24 08/30/24 History oral suspension Stomach, abdominal pain cyproheptadine 4 mg tablet 4 mg PO DAILY 07/20/24 08/30/24 History dextromethorphan-guaifenesin 10 10 ml PO TID PRN Cough 07/20/24 08/30/24 History mg-100 mg/5 mL oral liquid (Tussin DM) paroxetine HCl 30 mg tablet 30 mg PO BID 08/30/24 08/30/24 History Allergies Allergy/AdvReac Type Severity Reaction Status Date / Time Penicillins Allergy Intermediate nausea/vomi Verified 12/21/20 22:47 ting Past Med/Surg History Problem List (Updated 08/30/24 @ 22:03 by Timbo Fang MD) Elevated CPK (Acute) Acute confusion (Acute) Hyperlipidemia Type 2 diabetes mellitus Hypertension Schizophrenia (Acute) Psychosis (Acute) Ambulatory dysfunction (Acute) Medical History Morbid obesity Seizures Family History Other Family history non-contributory Social History Smoking Status: Current every day smoker Tobacco Type: Smokeless Tobacco (Dip or Chew) Preferred Language: Kenyan Communication Ability: Effective Reinsurance Analyst Required: No Beliefs That Will Affect Care: None current occupational status: employed Feels Safe at Home: No Gender Identity: Male Assistive Devices: Walker Physical Exam Vital Signs Vital Signs - 24 hr 08/30/24 16:01 08/30/24 18:29 08/30/24 20:00 Temperature 37.2 C 36.7 C Temperature Source Oral Oral Pulse Rate 83 Pulse Rate [Finger] 69 83 Pulse Rhythm [Finger] Regular Pulse Strength [Finger] Normal Respiratory Rate 18 17 20 Respiratory Effort / Characteristics Non-Labored Spontaneous Non-Labored Respiratory Depth Normal Normal Respiratory Pattern Regular Regular Blood Pressure 131/83 Blood Pressure [Right Arm] 135/76 185/105 H Blood Pressure Mean 99 Blood Pressure Mean [Right Arm] 95 131 Pulse Oximetry 99 96 96 Oxygen Delivery Method Room Air Room Air Room Air Sepsis Recent Fever Within 48 Hours No Sepsis New/Unexplained Change in Mental Status N/A Sepsis Action Taken by Nursing No Action Required Physical Exam HENT: Exam performed. - Head: Normocephalic and atraumatic. EYES: Conjunctivae and EOM are normal. Right eye exhibits no discharge. Left eye exhibits no discharge. No scleral icterus. NECK: Normal range of motion. Neck supple. No JVD present. CV: Normal rate, regular rhythm, normal heart sounds and intact distal pulses. There is no peripheral edema. Palpable radial pulses bue. PULM/CHEST: Effort normal and breath sounds normal. No respiratory distress. No stridor. no wheezes. no rales. ABD: The abdomen is soft. There is no tenderness. NEURO: Motor and sensation grossly intact. PSYCH: Bizarre affect. Course Course 1604: The patient was evaluated in room A6. A complete history and physical exam was performed 2114: Patient medically cleared. Awaiting psychiatric placement. Patient placed in observation at this time. 2201: Case signed out to Dr. Ho awaiting psychiatric placement. Administered Medications Discontinued Medications Lorazepam (Lorazepam 2 Mg/1 Ml Vial) 1 mg IM NOW STA Stop: 08/30/24 20:46 Last Admin: 08/30/24 20:50 Dose: 1 mg Documented By: ANILA Medical Decision Making Laboratory Data Attestation: I reviewed the patient's lab results. 08/30/24 16:17 08/30/24 16:17 Lab Results 08/30/24 08/30/24 Range/Units 16:17 17:09 WBC 7.61 (4.8-10.8) K/ul RBC 3.97 L (4.70-6.10) M/uL Hgb 12.2 L (14.0-18.0) g/dl Hct 36.1 L (42.0-52.0) % MCV 90.9 (80.0-100.0) fL MCH 30.7 (25.0-34.0) pg MCHC 33.8 (32.0-36.0) g/dL RDW Std Deviation 41.5 (36.4-46.3) fL RDW Coeff of Kay 12.6 (11.5-14.5) % Plt Count 201 (130-400) K/uL MPV 11.0 (9.4-12.4) fL Immature Gran % (Auto) 0.3 % Neut % (Auto) 58.7 % Lymph % (Auto) 24.4 % [place] % (Auto) 10.4 % Eos % (Auto) 5.7 % Baso % (Auto) 0.5 % Neut # (Auto) 4.47 (1.40-6.50) K/uL Lymph # (Auto) 1.86 (1.20-3.40) K/uL [place] # (Auto) 0.79 H (0.11-0.59) K/uL Eos # (Auto) 0.43 (0.00-0.50) K/uL Baso # (Auto) 0.04 (0.00-0.20) K/uL Immature Gran # (Auto) 0.02 (0.01-0.20) K/uL Sodium 141 (136-145) mmol/L Potassium 3.9 (3.5-5.1) mmol/L Chloride 111 H (98-107) mmol/L Carbon Dioxide 23 (21-32) mmol/L Anion Gap 7 (3-11) BUN 22 (6-23) mg/dl Creatinine 1.13 (0.6-1.4) mg/dl Est Cr Clr Drug Dosing Not Reportable eGFR 71.24 BUN/Creatinine Ratio 19.5 (10-20) Glucose 100 H (70-99(Fasting)) mg/dl Calcium 9.2 (8.6-10.3) mg/dl Total Bilirubin 0.3 (0.2-1.0) mg/dl AST 26 (13-39) U/L ALT 27 (7-52) U/L Alkaline Phosphatase 94 (34-104) U/L Total Protein 6.7 (6.0-8.3) gm/dl Albumin 4.1 (3.4-5.0) gm/dl Globulin 2.6 (2.5-4.0) gm/dl Albumin/Globulin Ratio 1.6 (0.9-2) TSH 1.294 (0.300-4.500) uIu/ml Urine Color Dark Yellow Urine Appearance Clear (Clear) Urine pH 6.0 (4.5-7.5) Ur Specific [place] 1.030 (1.000-1.030) Urine Protein Trace H (Negative) Urine Glucose (UA) Negative (Negative) Urine Ketones 1+ H (Negative) Urine Blood Negative (Negative) Urine Nitrite Negative (Negative) Urine Bilirubin 1+ H (Negative) Urine Urobilinogen Negative (Negative) Ur Leukocyte Esterase Negative (Negative) Urine WBC (Auto) 0-5 (0-5) /hpf Urine RBC (Auto) 0-2 (0-2) /hpf U Hyaline Cast (Auto) 3-5 H (0-2) /lpf U Epithel Cells (Auto) 0-2 (0-2) /hpf Urine Bacteria (Auto) None Seen (None Seen) Calcium Oxalate Crystal Present A (None Prsent) Urine Mucus Present A (None Prsent) Urine Comment Salicylates < 3.0 L (3.0-30) mg/dl Urine Opiates Screen Neg (Neg) Ur Methadone, Qual Neg (Neg) Urine Fentanyl Screen Neg (Neg) Acetaminophen < 3 L (10-30) ug/ml Urine Barbiturates Neg (Neg) Ur Phencyclidine (PCP) Neg (Neg) U Amphetamin/Meth Scrn Neg (Neg) MDMA (Ecstasy) Screen Neg (Neg) U Benzodiazepines Scrn Neg (Neg) Ur Cocaine Metabolite Neg (Neg) U Marijuana (THC) Screen Neg (Neg) Ethyl Alcohol mg/dL < 10.0 (<10.0) mg/dl SARS-CoV-2, RNA, NAAT NEGATIVE (NEGATIVE) Imaging Data Attestation: I personally reviewed and interpreted this imaging study as follows: My Impression: CT head: No ICH Radiologist's Impression: Head CT 08/30/24 16:06 Technique: Axial computed tomography images were obtained of the brain from the vertex to the skull base without intravenous contrast. Comparison is made to the prior CT dated 08/25/2024 Findings: There is no sign of intracranial hemorrhage. There is normal matthew-white matter differentiation with no sign of acute or old infarction. No midline shift or other form of herniation is identified. There is no hydrocephalus. No obvious mass lesion is seen on this noncontrast examination. The visualized portions of the orbits and paranasal sinuses appear unremarkable. The mastoid air cells appear clear Impression: Unremarkable noncontrast CT of the brain Electronically signed by Pieter Garcia 08-30-2024 5:30 PM Chest X-Ray 08/30/24 21:02 Single frontal view of the chest Comparison made to prior exam dated 04/01/2024 Impression Cardiomegaly. No acute pulmonary pathology. Electronically signed by Hussein Morales 08-30-2024 9:46 PM ECG Data Attestation: I personally reviewed and interpreted this ECG as follows: Rate (beats per minute): 73 Rhythm: + normal sinus ECG Intervals/blocks: + Normal QRS, + Normal PA and + Normal QT-c ECG ST segments: + Normal ST segments [facility] Narrative 1605: The patient was evaluated in room A6. A complete history and physical exam was performed 2114: Patient medically cleared. Awaiting psychiatric placement. Patient placed in observation at this time. 2201: Case signed out to Dr. Ho awaiting psychiatric placement. Observation note Indication: Psych eval/placement Patient, with schizophrenia, hypertension, diabetes, hyperlipidemia was first seen at 1605 hrs and the observation time began at 5 hrs and was necessary in order to have psych evaluation completed and have mental health placement. Impression & Plan Schizophrenia Discharge Plan Visit Data Chief Complaint: Mental Health Evaluation Stated Complaint: MHE ED Provider: Braeden Ho Discharge Problem: Schizophrenia Patient Disposition: Still a Patient Condition: Fair Forms Stand Alone Forms: [facility], Suicide Prevention Resources Prescriptions Prescriptions: No Action atorvastatin 40 mg tablet 40 mg PO HS levothyroxine 25 mcg tablet 25 mcg PO QAM metformin 1,000 mg tablet 1,000 mg PO BID17 clozapine 200 mg tablet 200 mg PO HS cholecalciferol (vitamin D3) [Vitamin D3] 2,000 unit Capsule 2,000 unit PO QAM multivitamin [Daily-Izaiah] Tablet 1 tab PO DAILY lisinopril 20 mg tablet 20 mg PO DAILY acetaminophen 325 mg Tablet 650 mg PO Q4 MDD 3g PRN (Reason: Pain, Moderate) meloxicam 15 mg tablet 15 mg PO DAILY topiramate 50 mg tablet 50 mg PO BID cyanocobalamin (vitamin B-12) [Vitamin B-12] 100 mcg Tablet 100 mcg PO QAM Qty: 30 0RF polyethylene glycol 3350 [Miralax] 17 gram Powder In Packet 17 g PO DAILY Qty: 30 0RF sennosides [senna] 8.6 mg tablet 8.6 mg PO Q2D PRN (Reason: constipation) Qty: 14 0RF Rx Instructions: 8.6 mg orally as needed every other day for constipation cyproheptadine 4 mg tablet 4 mg PO DAILY dextromethorphan-guaifenesin [Tussin DM] 10-100 mg/5 mL Liquid 10 ml PO TID PRN (Reason: Cough) [place] Bismol Maximum Strength 525 mg/15 mL Suspension 525 mg PO DIRECTED PRN (Reason: Upset Stomach, abdominal pain) Rx Instructions: Give 30 ML by mouth every 1/2 to 1 hour as needed for diarrhea, upset stomach or abdominal pain. DO NOT EXCEED 8 doses in 24 hours. paroxetine HCl 30 mg Tablet 30 mg PO BID Rx Instructions: PER GENESIS CURLEW Referrals Referrals: Deonte Martinez MD [Primary Care Provider] -
[2024-08-30] MEDS: LORazepam 2 MG/1 ML VIAL IM STA (20:50)
--- NOTE | 2024-08-30 21:46 | Emergency Department Note ---
ED Visit Note I received this patient at change of shift signout from Dr. Fang. Please see his note for initial history and physical exam. The patient is a 69-year-old male who presented to the emergency department for a mental health evaluation. He does have a history of psychosis as well as schizophrenia. His medical condition was stable but his psychiatric condition was decompensating at his personal-intermediate. He was sent to the emergency department for mental-health evaluation. Ultimately the patient is a 302 evaluation which was upheld. Bed search is currently underway. The patient's outpatient medications were ordered. The patient was signed out to Dr. Villalobos at change of shift. Please see his note for continuation of care and further disposition. .
--- NOTE | 2024-08-30 21:46 | XRay Report ---
Single frontal view of the chest Comparison made to prior exam dated 04/01/2024 Impression Cardiomegaly. No acute pulmonary pathology. Electronically signed by Hussein Morales 08-30-2024 9:46 PM
[2024-08-30] MEDS: PARoxetine HCL 20 MG TAB PO SCH (23:39)
--- NOTE | 2024-08-31 02:59 | Emergency Department Note ---
ED Visit Note Received this patient in signout. See prior notes for full details. Patient unfortunately seems to be having psychosis likely related to underlying schizophrenia and involuntary mental health commitment has been pursued. Inpatient psychiatric bed search overnight and the patient rested comfortably here. Home medications have been ordered. Signed out and then my shift to Dr. Casas. .
--- NOTE | 2024-08-31 06:51 | Emergency Department Note ---
ED Visit Note The patient was taken signout from Dr. Villalobos at change of shift. Patient was seen initially by Dr. Fang. Please see his note for details of the patient's initial presentation. In brief, the patient is a 69-year-old gentleman with a past medical history of schizophrenia who presents emergency department from his personal m[facility] at [facility] for worsening psychosis where he was eating the dirt out of plant pots. The patient was medically cleared. 302 was upheld. Bed search in progress. Home medications were ordered. Bed search was exhausted. Appreciate 3 south / psychiatry consultation and recommendations. Recommend medical admission at this time and psychiatry will provide consultation for inpatient team. [facility] Appreciate consultation for admission. Further management per admitting team.
[2024-08-31] MEDS: lisinopril 20 MG TAB PO SCH (08:34)
[2024-08-31] MEDS ORDERED: OLANZapine 10 MG/2.1 ML SDV IM PRN (15:11)
[2024-08-31] MEDS ORDERED: LORazepam 2 MG/1 ML VIAL IM PRN (15:13)
[2024-08-31] MEDS ORDERED: OLANZapine 5 MG TABLET PO PRN (15:36)
--- NOTE | 2024-08-31 15:38 | History & Physical Report ---
Date of Service August 31, 2024 Assessment & Plan (1) Psychosis: Plan: -patient has hx of paranoid schizophrenia, treated on inpatient psych unit in past -has similar symptoms as documented prior, per inpatient psych team wanted patient admitted to medicine for delirium -patient appears very internalized consistent with acute psychosis in setting of known schizophrenia (given disorganization cannot hold conversation, mood changes between agitation and flight of thoughts, delusions regarding substance use and bodybuilding) -other contributers could be hyperactive delirium, less likely metabolic in nature -tox screen negative, no leukocytosis, TSH WNL, LFTs WNL, CT head WNL -unclear trigger for decompensation, given prior hx suspect nonadherence to medication as potential source vs. progression of illness Plan: -psychiatry consulted, appreciate recs -patient has no apparent metabolic cause for psychiatric decompensation and is medically stable for transfer/discharge to inpatient psych/psych facility at this time -haldol 5mg IM/PO q8hrs for agitation, ativan 1mg q8hrs for refractory agitation -needs 1 to 1 supervision 07/10 on med surg unit, if not available cannot go to med surg and will need to stay in ED despite admission -safe tray, fall precautions -check RPR, B12, folic acid, vitamin D to finish metabolic workup -will attempt IV fluids/encourage PO when able -delirium precautions (2) Schizophrenia: Plan: -see above (3) Type 2 diabetes mellitus: Plan: -insulin ordered (4) Hypertension: Plan: -continue lisinopril, atorvastatin Plan I spent a total of 80 minutes in direct patient care, including [id number] time with the patient and/or family, reviewing medical records, ordering and reviewing diagnostic tests, and coordinating care with other healthcare providers. This time includes: history taking, physical examination, medical decision making, counseling, ECG interpretation, imaging interpretation, lab interpretation, orders, and education, excluding time spent in the performance of separately billed services. History of Present Illness Chief Complaint: -decompensated psychiatric illness Primary Care Provider: Deonte Martinez MD 69 yo male with pmhx of paranoid schizophrenia (hx of inpatient psych stays in past, most recent 03/09/2024), chronic subdural hematoma (2019) HTN, DM Type 2, HLD, BPH who presents for decompensated psychiatric illness. Of note, had inpatient psych admission on 02/2024 for similar symptoms, adjustments made in medications as patient had stopped taking meds, discharged back to [facility] assisted living. In the ED today, psychiatry consulted, inpatient psych here refused inpatient psych admission but recommended admission to medicine for "delirium". Attempts made by ED to find accepting facilities were declined as well. Patient seen and examined at bedside accompanied by nurse. Patient unable to have conversation at this time, talking about "doing LSD and steroids", was eating flower pot dirt at [facility]. Unable to hold any type of conversation, generally responds to questions only sparingly. Allergies Allergy/AdvReac Type Severity Reaction Status Date / Time Penicillins Allergy Intermediate nausea/vomi Verified 12/21/20 22:47 ting Home Medications Medication Instructions Recorded Confirmed Type atorvastatin 40 mg tablet 40 mg PO HS 04/19/18 08/30/24 History cholecalciferol (vitamin D3) 50 2,000 unit PO QAM 04/19/18 08/30/24 History mcg (2,000 unit) capsule (Vitamin D3) clozapine 200 mg tablet 200 mg PO HS 04/19/18 08/30/24 History levothyroxine 25 mcg tablet 25 mcg PO QAM 04/19/18 08/30/24 History metformin 1,000 mg tablet 1,000 mg PO BID17 04/19/18 08/30/24 History multivitamin (Daily-Izaiah tablet) 1 tab PO DAILY 06/13/19 08/30/24 History acetaminophen 325 mg tablet 650 mg PO Q4 PRN Pain, Moderate 12/07/20 08/30/24 History lisinopril 20 mg tablet 20 mg PO DAILY 12/07/20 08/30/24 History meloxicam 15 mg tablet 15 mg PO DAILY pain 02/10/24 08/30/24 History topiramate 50 mg tablet 50 mg PO BID 02/10/24 08/30/24 History cyanocobalamin (vitamin B-12) 100 100 mcg PO QAM #30 tabs 02/19/24 08/30/24 Rx mcg tablet (Vitamin B-12) polyethylene glycol 3350 17 gram 17 g PO DAILY #30 ea 02/19/24 08/30/24 Rx oral powder packet (Miralax) sennosides 8.6 mg tablet (senna) 8.6 mg PO Q2D PRN constipation #14 02/19/24 08/30/24 Rx tabs bismuth subsalicylate 525 mg/15 mL 525 mg PO DIRECTED PRN Upset 07/20/24 08/30/24 History oral suspension Stomach, abdominal pain cyproheptadine 4 mg tablet 4 mg PO DAILY 07/20/24 08/30/24 History dextromethorphan-guaifenesin 10 10 ml PO TID PRN Cough 07/20/24 08/30/24 History mg-100 mg/5 mL oral liquid (Tussin DM) paroxetine HCl 30 mg tablet 30 mg PO BID 08/30/24 08/30/24 History Past Med/Surg History Problem List (Updated 08/31/24 @ 15:56 by Esdras Arrieta MD) Elevated CPK (Acute) Acute confusion (Acute) Hyperlipidemia Type 2 diabetes mellitus Hypertension Schizophrenia (Acute) Psychosis (Acute) Ambulatory dysfunction (Acute) Medical History Morbid obesity Seizures Family History Other Family history non-contributory Social History Smoking Status: Current every day smoker Tobacco Type: Smokeless Tobacco (Dip or Chew) Preferred Language: [place] Island[place] Communication Ability: Effective Submarine Worker Required: No Beliefs That Will Affect Care: None current occupational status: employed Feels Safe at Home: No Gender Identity: Male Assistive Devices: Walker Review of Systems Review of Systems: -unable to answer ROS Physical Exam Physical Exam: Gen: A&O 0 agitated HEENT: NCAT, EOMI, not icteric. External ears normal. No rhinorrhea. Moist mucous membranes. Neck: Supple, full range of motion, no observable masses, No meningeal sign. Lungs: No Respiratory distress. CV: RRR, no edema. Abdomen: Soft, nondistended, No rebound tenderness. MSK: No joint swelling, no redness. Skin: No rashes, petechiae, lesions. Normal color per patient. Neuro: Normal Gait, Grossly intact. Psych: very internalized, responds only sparingly to questions, slightly agitated, confused Results & Data Results & Data Vital Signs (Past 12 Hours) Vital Signs Temp Pulse Resp BP Pulse Ox O2 Del Method 08/31/24 11:22 37.2 C 73 15 144/81 H 97 Room Air 08/31/24 08:19 36.7 C 102 H 20 172/73 H 97 Room Air Laboratory Results -personally reviewed, creatinine at baseline, UA without evidence of UTI, TSH WNL Medications Administered Insulin Aspart (Insulin Aspart Per Unit Charge) 0 units SC ACHS BEATRICE Stop: 09/30/24 16:29 Last Admin: 08/31/24 15:53 Dose: Not Given Documented By: DHARMESH Lisinopril (Lisinopril 20 Mg Tab) 20 mg PO DAILY BEATRICE Stop: 09/30/24 08:59 Last Admin: 08/31/24 08:34 Dose: 20 mg Documented By: SENIA Paroxetine HCl (Paroxetine Hcl 20 Mg Tab) 30 mg PO BID BEATRICE Stop: 09/29/24 21:44 Last Admin: 08/31/24 08:35 Dose: 30 mg Documented By: Admin: 08/30/24 23:39 Dose: Not Given Documented By: BRETT (1) Psychosis Psychosis type: schizophrenia Schizophrenia type: paranoid schizophrenia Qualified Code(s): F20.0 - Paranoid schizophrenia
[2024-08-31] MEDS ORDERED: GLUCAGON FOR INJ 1 MG VIAL SQ PRN (15:41)
[2024-08-31] MEDS ORDERED: DEXTROSE 50% 50 ML SYRINGE IV PRN (15:41)
[2024-08-31] MEDS ORDERED: GLUCOSE 10 TAB/TUBE PO PRN (15:41)
[2024-08-31] MEDS ORDERED: CARBOHYDRATES FOR HYPOGLYCEMIA PO PRN (15:41)
[2024-08-31] MEDS ORDERED: GLUCOSE 40% GEL 15 GM TUBE PO PRN (15:41)
[2024-08-31] MEDS ORDERED: HALOPERIDOL LACTATE 5 MG/ML 1 ML VIAL IM PRN (15:51)
[2024-08-31] MEDS: INSULIN ASPART PER UNIT CHARGE SC SCH (15:53)
[2024-08-31 17:50] LABS: Folate (Folic Acid),Ser orPlas > 22.30 ng/ml (>5.38)
[2024-08-31 17:51] LABS: Vitamin B12 346 pg/ml (180-914)
[2024-08-31] MEDS: haloperidoL 5 MG TAB PO PRN (18:30)
[2024-08-31] MEDS ORDERED: SENNA 8.6 MG TAB PO PRN (19:26)
[2024-08-31] MEDS: LORazepam 2 MG/1 ML VIAL IM PRN (19:58)
[2024-08-31] MEDS: cloZAPine 100 MG TAB PO SCH (20:00)
[2024-08-31] MEDS: ATORVASTATIN 40 MG TAB PO SCH (20:00)
[2024-08-31] MEDS: MELATONIN 3 MG TAB PO SCH (20:04)
[2024-08-31] MEDS: TOPIRAMATE 50 MG TAB PO SCH (20:56)
--- NOTE | 2024-08-31 22:28 | Electrocardiogram Report ---
Test Reason : Blood Pressure : */* mmHG Vent. Rate : 73 BPM Atrial Rate : 73 BPM P-R Int : 188 ms QRS Dur : 88 ms QT Int : 426 ms P-R-T Axes : 71 75 50 degrees QTcB Int : 469 ms Normal sinus rhythm Nonspecific T wave abnormality Abnormal ECG When compared with ECG of 25-Aug-2024 15:55, No significant change was found Confirmed by eJsu Yap ([id number]) on 08/31/2024 10:28:20 PM Referred By: Christy Lares Confirmed By: Jesu Yap
[2024-09-01] MEDS: LEVOTHYROXINE SODIUM 25 MCG TABLET PO SCH (07:17)
[2024-09-01] MEDS: MULTIVITAMIN TAB PO SCH (07:17)
[2024-09-01] MEDS: THIAMINE HCL 100 MG TAB PO SCH (07:18)
[2024-09-01] MEDS: CHOLECALCIFEROL 25 MCG (1000 UNITS) TAB PO SCH (07:18)
[2024-09-01] MEDS: CYANOCOBALAMIN (B-12) 100 MCG TABLET PO SCH (07:18)
[2024-09-01] MEDS: POLYETHYLENE (MIRALAX) 17 GM PACK PO SCH (08:22)
--- NOTE | 2024-09-01 11:44 | Psychiatric Consultation ---
Date of Consultation September 01, 2024 Impression / Recommendations Impression 69 M h/o schizophrenia, recent SDH (now resolved) s/p fall long-time resident of [facility] ([facility]) presents with disorganized behaviors and disorientation. Psychiatry consulted for evaluation. Patient with long-term h/o schizophrenia and well connected to outpatient services presents with decompensated psychosis. Concern for disinhibited behaviors, auditory hallucinations, hyperreligiosity, hypersexuality. Initial CK elevated due to psychomotor agitation and now downtrending. Has been requiring behavioral PRNs for control. Medical w/u unremarkable. Collateral obtained from his personal skilled nursing who notes change in baseline function after recent SDH in July s/p fall (now resolved) and has failed outpatient management. Can return to personal skilled nursing after stabilization. Pursuing 303 involuntary commitment and will be filed today. Psychiatry consults to follow and will consider transfer to inpatient psychiatry. Overall, I spent a total of 80 minutes with this case including review of chart records, nursing report, review of lab work, direct evaluation of the patient at bedside, counseling the patient, discussion of the patient with the hospitalist provider, discussion with the psychiatric liaison during clinical rounds, gathering collateral and documentation in the electronic health record. (1) Acute confusion: (2) Auditory hallucinations: (3) Hypersexuality: (4) Schizophrenia: (5) Elevated CPK: Plan Start Haloperidol 5mg BID Start Lorazepam 1mg HS Reduce Topiramate to 25mg BID Continue Clozapine 200mg HS Continue Paroxetine 30mg BID For behavioral emergencies: Haloperidol 5mg Q8hr PRN for agitation Lorazepam 1mg Q8hr PRN for anxiety Pursuing 303 involuntary commitment Psychiatry consults to follow Psych History Identifying Data 69 M h/o schizophrenia, recent SDH (now resolved) s/p fall long-time resident of [facility] ([facility]) presents with disorganized behaviors and disorientation. Psychiatry consulted for evaluation. Chief Complaint AMS, Psychosis History of Present Illness Chart review: Seen in [facility] 02/11/24 to 02/20/24 for decompensated psychosis 2/2 med non-adherence. Clozapine titrated back to therapeutic dose and d/c back to [facility]. On exam, pt is AO to self and place. Unable to state year or reason for hospitalization. Denies med s/e and reports regular adherence. Reports voices are torturous and he puts his hands over his years to quiet them. Responds inappropriately and he is disoriented. Talks about satan. Denies SI. Appears calm. Reports feeling safe. Denies pain. Sitter reports no agitated behaviors this morning. 09/01/24 09:53 - Psychiatric Liason Note by Tip Ortega, RN Spoke with Dayana the senior [employer] administrator at [facility] where patient resides, she states that they have been caring for patient for 25 years and his behavior the last few weeks has been completely out of character for him - "he is normally a very modest carolyn", per Dayana patient had a fall in July resulting in a subdural hematoma that he was treated at [place] for - since then "he has had glimpses of his old self, but hasn't been the same since the fall/head injury", patient was brought to [facility] last Friday for AMS and the head CT at that time showed an almost complete resolution of the hematoma and he was discharged back to the personal skilled nursing, Dayana states that they have / care and patient has been taking his medications each day, patient has seen his outpatient neurologist/PCP/psychiatrist and they have not been able to provide any answers for patient's change in mental status, Dayana would like to be updated on disposition planning but that patient can return to [facility] at discharge. Dayana can be reached at [phone] with any updates regarding patient. Patient seen on rounds with Dr. Humphrey, alert and oriented x 2 - more aware than previous assessment, patient denies any needs but states "I'm insane", denies hallucinations/delusions - "I am a lion and when I roar I cover my ears", patient has been discussing "dragon cum" and "satan's cum" intermittently with staff but otherwise has been appropriate on the floor, psychiatrist to make recommendation and team will continue to follow. Past Psychiatric History Current Psychiatric Diagnosis: paranoid schizophrenia History of Previous Suicide Attempt: No Allergies Allergy/AdvReac Type Severity Reaction Status Date / Time Penicillins Allergy Intermediate nausea/vomi Verified 12/21/20 22:47 ting Home Medications Medication Instructions Recorded Confirmed Type atorvastatin 40 mg tablet 40 mg PO HS 04/19/18 08/30/24 History cholecalciferol (vitamin D3) 50 2,000 unit PO QAM 04/19/18 08/30/24 History mcg (2,000 unit) capsule (Vitamin D3) clozapine 200 mg tablet 200 mg PO HS 04/19/18 08/30/24 History levothyroxine 25 mcg tablet 25 mcg PO QAM 04/19/18 08/30/24 History metformin 1,000 mg tablet 1,000 mg PO BID17 04/19/18 08/30/24 History multivitamin (Daily-Izaiah tablet) 1 tab PO DAILY 06/13/19 08/30/24 History acetaminophen 325 mg tablet 650 mg PO Q4 PRN Pain, Moderate 12/07/20 08/30/24 History lisinopril 20 mg tablet 20 mg PO DAILY 12/07/20 08/30/24 History meloxicam 15 mg tablet 15 mg PO DAILY pain 02/10/24 08/30/24 History topiramate 50 mg tablet 50 mg PO BID 02/10/24 08/30/24 History cyanocobalamin (vitamin B-12) 100 100 mcg PO QAM #30 tabs 02/19/24 08/30/24 Rx mcg tablet (Vitamin B-12) polyethylene glycol 3350 17 gram 17 g PO DAILY #30 ea 02/19/24 08/30/24 Rx oral powder packet (Miralax) sennosides 8.6 mg tablet (senna) 8.6 mg PO Q2D PRN constipation #14 02/19/24 08/30/24 Rx tabs bismuth subsalicylate 525 mg/15 mL 525 mg PO DIRECTED PRN Upset 07/20/24 08/30/24 History oral suspension Stomach, abdominal pain cyproheptadine 4 mg tablet 4 mg PO DAILY 07/20/24 08/30/24 History dextromethorphan-guaifenesin 10 10 ml PO TID PRN Cough 07/20/24 08/30/24 History mg-100 mg/5 mL oral liquid (Tussin DM) paroxetine HCl 30 mg tablet 30 mg PO BID 08/30/24 08/30/24 History Patient History Medical History Morbid obesity Seizures Family History Other Family history non-contributory Social History Smoking Status: Never smoker Tobacco Type: Smokeless Tobacco (Dip or Chew) Hx Alcohol Use: No Hx Substance Use: No Preferred Language: Lithuanian Communication Ability: Effective Signals Intelligence Analyst Required: No Beliefs That Will Affect Care: None Current Living Situation Comment: Previously lived in halfway. current occupational status: employed Other Information That Helps Us Care for You: No Feels Safe at Home: Yes Safety Concerns: Feels Safe At This Time Gender Identity: Male Assistive Devices: Hospital Bed Physical Exam Mental Examination: Appearance: Unkempt Eye Contact: Sporadic Contact Motor Behavior: Unremarkable Speech: Disorganized Mood: Calm Affect: Congruent Thought Process: Disorganized and Loose Associations Thought Content: Disoriented and Preoccupation Hallucinations: Auditory Insight: Poor Judgement: Poor Vital Signs (Past 24 Hours): Last Vital Signs Temp 36.4 C L 09/01/24 07:12 Pulse 99 H 09/01/24 07:12 Resp 16 09/01/24 07:12 BP 122/74 09/01/24 07:12 Pulse Ox 99 09/01/24 07:12 O2 Del Method Room Air 09/01/24 07:12 Results & Data (PSY) Medications Administered Atorvastatin Calcium (Atorvastatin 40 Mg Tab) 40 mg PO HS [facility] Stop: 09/30/24 20:59 Last Admin: 08/31/24 20:00 Dose: 40 mg Documented By: TONY Clozapine (Clozapine 100 Mg Tab) 200 mg PO HS [facility] Stop: 09/30/24 20:59 Last Admin: 08/31/24 20:00 Dose: 200 mg Documented By: TONY Cyanocobalamin (Cyanocobalamin (B-12) 100 Mcg Tablet) 100 mcg PO QAM [facility] Stop: 10/01/24 08:59 Last Admin: 09/01/24 07:18 Dose: 100 mcg Documented By: JAQUELIN Haloperidol (Haloperidol 5 Mg Tab) 5 mg PO Q8H PRN PRN Reason: Agitation Stop: 09/30/24 15:50 Last Admin: 09/01/24 07:20 Dose: 5 mg Documented By: Admin: 08/31/24 18:30 Dose: 5 mg Documented By: MNS Insulin Aspart (Insulin Aspart Per Unit Charge) 0 units SC ACHS [facility] Stop: 09/30/24 16:29 Last Admin: 09/01/24 08:22 Dose: 2 units Documented By: JAQUELIN Co-signed By: EDWARD Admin: 08/31/24 20:01 Dose: Not Given Documented By: TONY Co-signed By: MERYL Admin: 08/31/24 15:53 Dose: Not Given Documented By: DHARMESH Levothyroxine Sodium (Levothyroxine Sodium 25 Mcg Tablet) 25 mcg PO QAM [facility] Stop: 10/01/24 08:59 Last Admin: 09/01/24 07:17 Dose: 25 mcg Documented By: JAQUELIN Lisinopril (Lisinopril 20 Mg Tab) 20 mg PO DAILY [facility] Stop: 09/30/24 08:59 Last Admin: 09/01/24 07:16 Dose: 20 mg Documented By: Admin: 08/31/24 08:34 Dose: 20 mg Documented By: SENIA Lorazepam (Lorazepam 2 Mg/1 Ml Vial) 1 mg IM Q8 PRN PRN Reason: refractory agitation Stop: 09/30/24 15:12 Last Admin: 09/01/24 06:39 Dose: 1 mg Documented By: Admin: 08/31/24 19:58 Dose: 1 mg Documented By: TONY Melatonin (Melatonin 3 Mg Tab) 3 mg PO HS [facility] Stop: 09/30/24 20:59 Last Admin: 08/31/24 20:04 Dose: 3 mg Documented By: TONY Multivitamins (Multivitamin Tab) 1 tab [facility] Stop: 10/01/24 08:59 Last Admin: 09/01/24 07:17 Dose: 1 tab Documented By: JAQUELIN Paroxetine HCl (Paroxetine Hcl 20 Mg Tab) 30 mg PO BID [facility] Stop: 09/29/24 21:44 Last Admin: 09/01/24 07:16 Dose: 30 mg Documented By: Admin: 08/31/24 19:58 Dose: 30 mg Documented By: Admin: 08/31/24 08:35 Dose: 30 mg Documented By: Admin: 08/30/24 23:39 Dose: Not Given Documented By: BRETT Polyethylene Glycol (Polyethylene (Miralax) 17 Gm Pack) 17 gm PO DAILY [facility] Stop: 10/01/24 08:59 Last Admin: 09/01/24 08:22 Dose: 17 gm Documented By: JAQUELIN Thiamine HCl (Thiamine Hcl 100 Mg Tab) 100 mg PO QAM [facility] Stop: 10/01/24 08:59 Last Admin: 09/01/24 07:18 Dose: 100 mg Documented By: JAQUELIN Topiramate (Topiramate 50 Mg Tab) 50 mg PO BID [facility] Stop: 09/30/24 20:59 Last Admin: 09/01/24 07:15 Dose: 50 mg Documented By: Admin: 08/31/24 20:56 Dose: Not Given Documented By: ALW Vitamin D (Cholecalciferol 25 Mcg (1000 Units) Tab) 50 mcg PO QAM [facility] Stop: 10/01/24 08:59 Last Admin: 09/01/24 07:18 Dose: 50 mcg Documented By: JAQUELIN Coding [place] [address] IN/OBS CONSULT LVL 5,80M Patient Type Established History Comprehensive Exam Comprehensive Medical Decision Making High Complexity Diagnoses Acute confusion R41.0 Auditory hallucinations R44.0 Hypersexuality F52.8 Schizophrenia F20.9 Elevated CPK R74.8
[2024-09-01] MEDS: NICOTINE POLACRILEX 2 MG GUM MT PRN (12:03)
--- NOTE | 2024-09-01 15:36 | Hospitalist Progress Note ---
Date of Service September 01, 2024 Assessment & Plan (1) Psychosis: Plan: -patient has hx of paranoid schizophrenia, treated on inpatient psych unit in past -has similar symptoms as documented prior -patient appears very internalized consistent with acute psychosis in setting of known schizophrenia (given disorganization cannot hold conversation, mood changes between agitation and flight of thoughts, delusions) -other contributers could be hyperactive delirium, less likely metabolic in nature -tox screen negative, no leukocytosis, TSH WNL, LFTs WNL, CT head WNL -unclear trigger for decompensation, given prior hx suspect nonadherence to medication as potential source vs. progression of illness -has had significant prn antipsychotic use for agitation Plan: -psychiatry consulted, appreciate recs -medically stable for transfer/discharge to inpatient psych/psych facility at this time -haldol 5mg IM/PO q8hrs for agitation, ativan 1mg q8hrs for refractory agitation -start haldol 5mg bid and ativan 1mg HS, appreciate assistance -needs 1 to 1 supervision 07/10 on med surg unit -safe tray, fall precautions -delirium precautions (2) Schizophrenia: Plan: -see above (3) Type 2 diabetes mellitus: Plan: -insulin ordered (4) Hypertension: Plan: -continue lisinopril, atorvastatin Plan I spent a total of 40 minutes in direct patient care, including [id number] time with the patient and/or family, reviewing medical records, ordering and reviewing diagnostic tests, and coordinating care with other healthcare providers. This time includes: history taking, physical examination, medical decision making, counseling, ECG interpretation, imaging interpretation, lab interpretation, orders, and education, excluding time spent in the performance of separately billed services. Admission and Anticipated Discharge Date Admission Date: August 31, 2024 Subjective Patient seen and examined at bedside. Patient very internalized at this time. Review of Systems Review of Systems: -unable to answer ROS Physical Exam Physical Exam: Gen: A&O 1 drowsy HEENT: NCAT, EOMI, not icteric. External ears normal. No rhinorrhea. Moist mucous membranes. Neck: Supple, full range of motion, no observable masses, No meningeal sign. Lungs: No Respiratory distress. CV: RRR, no edema. Abdomen: Soft, nondistended, No rebound tenderness. MSK: No joint swelling, no redness. Skin: No rashes, petechiae, lesions. Normal color per patient. Neuro: Normal Gait, Grossly intact. Psych: very internalized, responds only sparingly to questions, confused, less agitated today Results & Data Results & Data Vital Signs (Past 12 Hours) Vital Signs Temp Pulse Resp BP Pulse Ox O2 Del Method 09/01/24 07:12 36.4 C L 99 H 16 122/74 99 Room Air Laboratory Results -personally reviewed, B12, folic acid, vitamin D, syphyllis workups unremarkable Medications Administered Atorvastatin Calcium (Atorvastatin 40 Mg Tab) 40 mg PO [facility] Stop: 09/30/24 20:59 Last Admin: 08/31/24 20:00 Dose: 40 mg Documented By: TONY Clozapine (Clozapine 100 Mg Tab) 200 mg PO [facility] Stop: 09/30/24 20:59 Last Admin: 08/31/24 20:00 Dose: 200 mg Documented By: TONY Cyanocobalamin (Cyanocobalamin (B-12) 100 Mcg Tablet) 100 mcg PO [facility] Stop: 10/01/24 08:59 Last Admin: 09/01/24 07:18 Dose: 100 mcg Documented By: JAQUELIN Haloperidol (Haloperidol 5 Mg Tab) 5 mg PO Q8H PRN PRN Reason: Agitation Stop: 09/30/24 15:50 Last Admin: 09/01/24 15:05 Dose: 5 mg Documented By: Admin: 09/01/24 07:20 Dose: 5 mg Documented By: Admin: 08/31/24 18:30 Dose: 5 mg Documented By: MAHESH Insulin Aspart (Insulin Aspart Per Unit Charge) 0 units SC [facility] Stop: 09/30/24 16:29 Last Admin: 09/01/24 12:03 Dose: 3 units Documented By: JAQUELIN Co-signed By: EDWARD Admin: 09/01/24 08:22 Dose: 2 units Documented By: JAQUELIN Co-signed By: EDWARD Admin: 08/31/24 20:01 Dose: Not Given Documented By: TONY Co-signed By: MERYL Admin: 08/31/24 15:53 Dose: Not Given Documented By: DHARMESH Levothyroxine Sodium (Levothyroxine Sodium 25 Mcg Tablet) 25 mcg PO [facility] Stop: 10/01/24 08:59 Last Admin: 09/01/24 07:17 Dose: 25 mcg Documented By: JAQUELIN Lisinopril (Lisinopril 20 Mg Tab) 20 mg PO DAILY [facility] Stop: 09/30/24 08:59 Last Admin: 09/01/24 07:16 Dose: 20 mg Documented By: Admin: 08/31/24 08:34 Dose: 20 mg Documented By: SENIA Lorazepam (Lorazepam 2 Mg/1 Ml Vial) 1 mg IM Q8 PRN PRN Reason: refractory agitation Stop: 09/30/24 15:12 Last Admin: 09/01/24 06:39 Dose: 1 mg Documented By: Admin: 08/31/24 19:58 Dose: 1 mg Documented By: TONY Melatonin (Melatonin 3 Mg Tab) 3 mg PO HS [facility] Stop: 09/30/24 20:59 Last Admin: 08/31/24 20:04 Dose: 3 mg Documented By: TONY Multivitamins (Multivitamin Tab) 1 tab PO QAM [facility] Stop: 10/01/24 08:59 Last Admin: 09/01/24 07:17 Dose: 1 tab Documented By: JAQUELIN Nicotine Polacrilex (Nicotine Polacrilex 2 Mg Gum) 1 piece MT Q2H PRN PRN Reason: nicotine cravings Stop: 10/01/24 08:38 Last Admin: 09/01/24 12:03 Dose: 1 piece Documented By: JAQUELIN Paroxetine HCl (Paroxetine Hcl 20 Mg Tab) 30 mg PO BID [facility] Stop: 09/29/24 21:44 Last Admin: 09/01/24 07:16 Dose: 30 mg Documented By: Admin: 08/31/24 19:58 Dose: 30 mg Documented By: Admin: 08/31/24 08:35 Dose: 30 mg Documented By: Admin: 08/30/24 23:39 Dose: Not Given Documented By: BRETT Polyethylene Glycol (Polyethylene (Miralax) 17 Gm Pack) 17 gm PO DAILY [facility] Stop: 10/01/24 08:59 Last Admin: 09/01/24 08:22 Dose: 17 gm Documented By: JAQUELIN Thiamine HCl (Thiamine Hcl 100 Mg Tab) 100 mg PO QAM [facility] Stop: 10/01/24 08:59 Last Admin: 09/01/24 07:18 Dose: 100 mg Documented By: JAQUELIN Topiramate (Topiramate 50 Mg Tab) 50 mg PO BID [facility] Stop: 09/30/24 20:59 Last Admin: 09/01/24 07:15 Dose: 50 mg Documented By: Admin: 08/31/24 20:56 Dose: Not Given Documented By: TONY Vitamin D (Cholecalciferol 25 Mcg (1000 Units) Tab) 50 mcg PO [facility] Stop: 10/01/24 08:59 Last Admin: 09/01/24 07:18 Dose: 50 mcg Documented By: JAQUELIN (1) Psychosis Psychosis type: schizophrenia Schizophrenia type: paranoid schizophrenia Qualified Code(s): F20.0 - Paranoid schizophrenia
[2024-09-01] MEDS: haloperidoL 5 MG TAB PO SCH (20:00)
[2024-09-01] MEDS: LORazepam 1 MG TAB PO SCH (20:02)
[2024-09-01] MEDS: TOPIRAMATE 25 MG TAB PO SCH (20:03)
--- NOTE | 2024-09-02 15:06 | Hospitalist Progress Note ---
Date of Service September 02, 2024 Assessment & Plan (1) Psychosis: Plan: -patient has hx of paranoid schizophrenia, treated on inpatient psych unit in past -has similar symptoms as documented prior -patient appears very internalized consistent with acute psychosis in setting of known schizophrenia (given disorganization cannot hold conversation, mood changes between agitation and flight of thoughts, delusions) -other contributers could be hyperactive delirium, less likely metabolic in nature -tox screen negative, no leukocytosis, TSH WNL, LFTs WNL, CT head WNL -unclear trigger for decompensation, given prior hx suspect nonadherence to medication as potential source vs. progression of illness -has had significant prn antipsychotic use for agitation Plan: -psychiatry consulted, appreciate recs -medically stable for transfer/discharge to inpatient psych/psych facility at this time -haldol 5mg IM/PO q8hrs for agitation, ativan 1mg q8hrs for refractory agitation -continue haldol 5mg bid and ativan 1mg HS, appreciate assistance -needs 1 to 1 supervision 07/10 on med surg unit -safe tray, fall precautions -delirium precautions (2) Schizophrenia: Plan: -see above (3) Type 2 diabetes mellitus: Plan: -insulin ordered (4) Hypertension: Plan: -continue lisinopril, atorvastatin Plan I spent a total of 40 minutes in direct patient care, including [id number] time with the patient and/or family, reviewing medical records, ordering and reviewing diagnostic tests, and coordinating care with other healthcare providers. This time includes: history taking, physical examination, medical decision making, counseling, ECG interpretation, imaging interpretation, lab interpretation, orders, and education, excluding time spent in the performance of separately billed services. Admission and Anticipated Discharge Date Admission Date: August 31, 2024 Subjective Patient seen and examined at bedside. Alert and orriented x2, spends most of encounter discussing religiosity and delusions. Review of Systems Review of Systems: -unable to answer ROS Physical Exam Physical Exam: Gen: A&O 2 HEENT: NCAT, EOMI, not icteric. External ears normal. No rhinorrhea. Moist mucous membranes. Neck: Supple, full range of motion, no observable masses, No meningeal sign. Lungs: No Respiratory distress. CV: RRR, no edema. Abdomen: Soft, nondistended, No rebound tenderness. MSK: No joint swelling, no redness. Skin: No rashes, petechiae, lesions. Normal color per patient. Neuro: Normal Gait, Grossly intact. Psych: very internalized, responds only sparingly to questions, confused Results & Data Results & Data Vital Signs (Past 12 Hours) Vital Signs Temp Pulse Resp BP Pulse Ox O2 Del Method 09/02/24 14:50 36.9 C 94 H 16 129/79 96 Room Air 09/02/24 07:12 36.7 C 76 16 158/69 H 98 Room Air (1) Psychosis Psychosis type: schizophrenia Schizophrenia type: paranoid schizophrenia Qualified Code(s): F20.0 - Paranoid schizophrenia
--- NOTE | 2024-09-02 15:52 | Psychiatric Progress Note ---
Date of Service September 02, 2024 Impression / Recommendations Impression 69 M h/o schizophrenia, recent SDH (now resolved) s/p fall long-time resident of [facility] ([facility] [place]) presents with disorganized behaviors and disorientation. Psychiatry consulted for evaluation. Patient with long-term h/o schizophrenia and well connected to outpatient services presents with decompensated psychosis. Concern for disinhibited behaviors, auditory hallucinations, hyperreligiosity, hypersexuality. Initial CK elevated due to psychomotor agitation and now downtrending. Has been requiring behavioral PRNs for control. Medical w/u unremarkable. Collateral obtained from his personal correction who notes change in baseline function after recent SDH in July s/p fall (now resolved) and has failed outpatient management. Can return to personal correction after stabilization. Pursuing 303 involuntary commitment. A: Overnight pt presents poor sleep. Continues to be disoriented. Behaviors have improved and pt is able to engage in ADLs with assistance. Redirectable. Continues to be hyperreligious and sexual. Appears less preoccupied compared to initial admission. Plan to optimize sleep medication. 303 commitment hearing tomorrow AM. Overall, I spent a total of 40 minutes with this case including review of chart records, nursing report, review of lab work, direct evaluation of the patient at bedside, counseling the patient, discussion of the patient with the hospitalist provider, discussion with the psychiatric liaison during clinical rounds, gathering collateral and documentation in the electronic health record. (1) Acute confusion: (2) Auditory hallucinations: (3) Hypersexuality: (4) Schizophrenia: (5) Elevated CPK: Plan 09/03/24: -Increase Lorazepam to 2mg HS 09/02/24: Start Haloperidol 5mg BID Start Lorazepam 1mg HS Reduce Topiramate to 25mg BID Continue Clozapine 200mg HS Continue Paroxetine 30mg BID For behavioral emergencies: Haloperidol 5mg Q8hr PRN for agitation Lorazepam 1mg Q8hr PRN for anxiety Pursuing 303 involuntary commitment Psychiatry consults to follow Protective Factors Assessment Employed: No Interval History Chief Complaint Psychosis Subjective Subjective Patient was seen & assessed and interval progress reviewed with treatment team nursing and social work Overnight got 2-3 hours of sleep and disrupted. One time haldol PRN. On interview AO to self only. Appears calm and reports feeling safe. Nonsensical statements about his guardian being an archangel. Sitter reports able to complete ADLs with some assistance. Uncoordinated movements. Physical Exam Mental Examination Appearance: Unkempt Eye Contact: Sporadic Contact Motor Behavior: Unremarkable Speech: Disorganized Mood: Calm Affect: Congruent Thought Process: Disorganized and Loose Associations Thought Content: Disoriented and Preoccupation Hallucinations: Auditory Insight: Poor Judgement: Poor Vital Signs (Past 24 Hours) Last Vital Signs Temp 36.9 C 09/02/24 14:50 Pulse 94 H 09/02/24 14:50 Resp 16 09/02/24 14:50 BP 129/79 09/02/24 14:50 Pulse Ox 96 09/02/24 14:50 O2 Del Method Room Air 09/02/24 14:50 Results & Data ([facility]) Laboratory Results Laboratory Results - last 24 hr 09/01/24 09/01/24 09/02/24 17:01 20:31 07:34 POC Glucose 114 H 89 104 H 09/02/24 11:33 POC Glucose 101 H Current Inpatient Medications Current Inpatient Medications: Current Inpatient Medications Acetaminophen (Acetaminophen 325 Mg Tab) 650 mg PO Q4H PRN PRN Reason: pain/fever Stop: 09/30/24 19:25 Atorvastatin Calcium (Atorvastatin 40 Mg Tab) 40 mg PO HS [facility] Stop: 09/30/24 20:59 Last Admin: 09/01/24 20:00 Dose: 40 mg Clozapine (Clozapine 100 Mg Tab) 200 mg PO HS [facility] Stop: 09/30/24 20:59 Last Admin: 09/01/24 20:00 Dose: 200 mg Cyanocobalamin (Cyanocobalamin (B-12) 100 Mcg Tablet) 100 mcg PO QA [facility] Stop: 10/01/24 08:59 Last Admin: 09/02/24 08:10 Dose: 100 mcg Dextrose (Dextrose 50% 50 Ml Syringe) 25 - 50 ml IV UD PRN; Protocol PRN Reason: Hypoglycemia Protocol Stop: 09/30/24 15:40 Glucagon (Glucagon For Inj 1 Mg Vial) 1 mg SQ UD PRN; Protocol PRN Reason: Hypoglycemia Protocol Stop: 09/30/24 15:40 Glucose (Glucose 40% Gel 15 Gm Tube) 15 - 30 gm PO UD PRN; Protocol PRN Reason: Hypoglycemia Protocol Stop: 09/30/24 15:40 Glucose (Glucose 10 Tab/Tube) 4 - 8 tab PO UD PRN; Protocol PRN Reason: Hypoglycemia Protocol Stop: 09/30/24 15:40 Haloperidol (Haloperidol 5 Mg Tab) 5 mg PO Q12 [facility] Stop: 10/01/24 20:59 Last Admin: 09/02/24 08:09 Dose: 5 mg Haloperidol Lactate (Haloperidol Lactate 5 Mg/Ml 1 Ml Vial) 5 mg IM Q8H PRN PRN Reason: Agitation Stop: 09/30/24 15:50 Insulin Aspart (Insulin Aspart Per Unit Charge) 0 units SC ACHS [facility] Stop: 09/30/24 16:29 Last Admin: 09/02/24 13:45 Dose: Not Given Levothyroxine Sodium (Levothyroxine Sodium 25 Mcg Tablet) 25 mcg PO QAM [facility] Stop: 10/01/24 08:59 Last Admin: 09/02/24 08:09 Dose: 25 mcg Lisinopril (Lisinopril 20 Mg Tab) 20 mg PO DAILY [facility] Stop: 09/30/24 08:59 Last Admin: 09/02/24 08:09 Dose: 20 mg Lorazepam (Lorazepam 2 Mg/1 Ml Vial) 1 mg IM Q8 PRN PRN Reason: refractory agitation Stop: 09/30/24 15:12 Last Admin: 09/02/24 15:12 Dose: 1 mg Lorazepam (Lorazepam 1 Mg Tab) 1 mg PO HS [facility] Stop: 10/01/24 20:59 Last Admin: 09/01/24 20:02 Dose: 1 mg Melatonin (Melatonin 3 Mg Tab) 3 mg PO HS [facility] Stop: 09/30/24 20:59 Last Admin: 09/01/24 20:00 Dose: 3 mg Miscellaneous (Carbohydrates For Hypoglycemia ) 15 - 30 gm PO UD PRN PRN Reason: Hypoglycemia Protocol Stop: 09/30/24 15:40 Multivitamins (Multivitamin Tab) 1 tab PO QAM [facility] Stop: 10/01/24 08:59 Last Admin: 09/02/24 08:09 Dose: 1 tab Nicotine Polacrilex (Nicotine Polacrilex 2 Mg Gum) 1 piece MT Q2H PRN PRN Reason: nicotine cravings Stop: 10/01/24 08:38 Last Admin: 09/02/24 01:59 Dose: 1 piece Paroxetine HCl (Paroxetine Hcl 20 Mg Tab) 30 mg PO BID [facility] Stop: 09/29/24 21:44 Last Admin: 09/02/24 08:08 Dose: 30 mg Polyethylene Glycol (Polyethylene (Miralax) 17 Gm Pack) 17 gm PO DAILY [facility] Stop: 10/01/24 08:59 Last Admin: 09/02/24 08:10 Dose: Not Given Sennosides (Senna 8.6 Mg Tab) 8.6 mg PO Q2D PRN PRN Reason: constipation Stop: 09/30/24 19:25 Thiamine HCl (Thiamine Hcl 100 Mg Tab) 100 mg PO QAM [facility] Stop: 10/01/24 08:59 Last Admin: 09/02/24 08:09 Dose: 100 mg Topiramate (Topiramate 25 Mg Tab) 25 mg PO BID [facility] Stop: 10/01/24 20:59 Last Admin: 09/02/24 08:10 Dose: 25 mg Vitamin D (Cholecalciferol 25 Mcg (1000 Units) Tab) 50 mcg PO QAM [facility] Stop: 10/01/24 08:59 Last Admin: 09/02/24 08:08 Dose: 50 mcg Mental Health & Subst Abuse Tx Therapist Name of Therapist: none Construction Project Administrator Name of Construction Project Administrator: none Post Discharge Appointments Primary Care Physician Name Of Family Doctor/PCP: Deonte Martinez
[2024-09-03] MEDS: ACETAMINOPHEN 325 MG TAB PO PRN (12:09)
--- NOTE | 2024-09-03 12:29 | Hospitalist Progress Note ---
Date of Service September 03, 2024 Assessment & Plan (1) Psychosis: Plan: -patient has hx of paranoid schizophrenia, treated on inpatient psych unit in past -has similar symptoms as documented prior -patient appears very internalized consistent with acute psychosis in setting of known schizophrenia (given disorganization cannot hold conversation, mood changes between agitation and flight of thoughts, delusions) -tox screen negative, no leukocytosis, TSH WNL, LFTs WNL, CT head WNL -unclear trigger for decompensation, given prior hx suspect nonadherence to medication as potential source vs. progression of illness -has had significant prn antipsychotic use for agitation -continues to be very internalized at this time, strong spiritism preoccupation Plan: -psychiatry consulted, appreciate recs -medically stable for transfer/discharge to inpatient psych/psych facility at this time -haldol 5mg IM/PO q8hrs for agitation, ativan 1mg q8hrs for refractory agitation -continue haldol 5mg bid and ativan 1mg HS, appreciate assistance -needs 1 to 1 supervision 07/10 on med surg unit -safe tray, fall precautions -delirium precautions (2) Schizophrenia: Plan: -see above (3) Type 2 diabetes mellitus: Plan: -insulin ordered (4) Hypertension: Plan: -continue lisinopril, atorvastatin Plan I spent a total of 40 minutes in direct patient care, including [id number] time with the patient and/or family, reviewing medical records, ordering and reviewing diagnostic tests, and coordinating care with other healthcare providers. This time includes: history taking, physical examination, medical decision making, counseling, ECG interpretation, imaging interpretation, lab interpretation, orders, and education, excluding time spent in the performance of separately billed services. Admission and Anticipated Discharge Date Admission Date: August 31, 2024 Subjective Patient seen and examined at bedside. Patient very internalized at this time, discussing quotes from the bible. Review of Systems 2 Review of Systems: -unable to assess due to mental status Physical Exam Physical Exam: Gen: A&O 2 HEENT: NCAT, EOMI, not icteric. External ears normal. No rhinorrhea. Moist mucous membranes. Neck: Supple, full range of motion, no observable masses, No meningeal sign. Lungs: No Respiratory distress. CV: RRR, no edema. Abdomen: Soft, nondistended, No rebound tenderness. MSK: No joint swelling, no redness. Skin: No rashes, petechiae, lesions. Normal color per patient. Neuro: Normal Gait, Grossly intact. Psych: very internalized, responds only sparingly to questions, confused Results & Data Results & Data Vital Signs (Past 12 Hours) Vital Signs Temp Pulse Resp BP BP Pulse Ox O2 Del Method 09/03/24 08:08 36.9 C 101 H 16 166/101 H 161/103 H 97 Room Air (1) Psychosis Psychosis type: schizophrenia Schizophrenia type: paranoid schizophrenia Qualified Code(s): F20.0 - Paranoid schizophrenia
--- NOTE | 2024-09-03 13:07 | Psychiatric Progress Note ---
Date of Service September 03, 2024 Impression / Recommendations Impression 69 M h/o schizophrenia, recent SDH (now resolved) s/p fall long-time resident of [facility] ([facility] [place]) presents with disorganized behaviors and disorientation. Psychiatry consulted for evaluation. Currently on 303 involuntary commitment. Patient with long-term h/o schizophrenia and well connected to outpatient services presents with decompensated psychosis. Concern for disinhibited behaviors, auditory hallucinations, hyperreligiosity, hypersexuality. Initial CK elevated due to psychomotor agitation and now downtrending. Has been requiring behavioral PRNs for control. Medical w/u unremarkable. Collateral obtained from his personal long-term who notes change in baseline function after recent SDH in July s/p fall (now resolved) and has failed outpatient management. Can return to personal long-term after stabilization. Pursuing 303 involuntary commitment. A: Overnight sleep improved with no documented disturbances. Disoriented. Stable behaviors, able to engage in ADLs more independently. Continues to voice hy persexual and hyperreligious statements. Denies AVH. Concern for haloperidol raising blood pressure and will monitor. 303 commitment hearing today and approved. Overall, I spent a total of 60 minutes with this case including review of chart records, nursing report, review of lab work, direct evaluation of the patient at bedside, counseling the patient, discussion of the patient with the hospitalist provider, discussion with the psychiatric liaison during clinical rounds, gathering collateral, commitment hearing and documentation in the electronic health record. (1) Acute confusion: (2) Auditory hallucinations: (3) Hypersexuality: (4) Schizophrenia: (5) Elevated CPK: Plan 09/04/24: Switch Haloperidol to 2.5mg TID 09/03/24: -Increase Lorazepam to 2mg HS 09/02/24: Start Haloperidol 5mg BID Start Lorazepam 1mg HS Reduce Topiramate to 25mg BID Continue Clozapine 200mg HS Continue Paroxetine 30mg BID For behavioral emergencies: Haloperidol 5mg Q8hr PRN for agitation Lorazepam 1mg Q8hr PRN for anxiety Pursuing 303 involuntary commitment Psychiatry consults to follow Protective Factors Assessment Employed: No Interval History Chief Complaint Psychosis Subjective Subjective Per sitter patient has been eating well. No recent behavioral disturbances or aggression. Continues to voice islam and sexual comments. Able to toilet independently. Uses walker for assistance at times. On interview patient is alert and oriented to himself. Believes the year is 1955 and says that he is at [facility]. Says voices are quiet. He shows me a coloring page and says that it is a picture of his wedding. Endorsing statements about [place]. Physical Exam Mental Examination Appearance: Unkempt Eye Contact: Sporadic Contact Motor Behavior: Unremarkable Speech: Disorganized Mood: Calm Affect: Congruent Thought Process: Disorganized and Loose Associations Thought Content: Disoriented and Preoccupation Hallucinations: Auditory Insight: Poor Judgement: Poor Vital Signs (Past 24 Hours) Last Vital Signs Temp 36.9 C 09/03/24 08:08 Pulse 101 H 09/03/24 08:08 Resp 16 09/03/24 08:08 BP 161/103 H 09/03/24 08:08 Pulse Ox 97 09/03/24 08:08 O2 Del Method Room Air 09/03/24 08:08 Results & Data ([facility]) Laboratory Results Laboratory Results - last 24 hr 09/02/24 09/02/24 09/03/24 17:20 20:14 08:06 POC Glucose 110 H 98 96 09/03/24 11:37 POC Glucose 91 Current Inpatient Medications Current Inpatient Medications: Current Inpatient Medications Acetaminophen (Acetaminophen 325 Mg Tab) 650 mg PO Q4H PRN PRN Reason: pain/fever Stop: 09/30/24 19:25 Last Admin: 09/03/24 12:09 Dose: 650 mg Atorvastatin Calcium (Atorvastatin 40 Mg Tab) 40 mg PO HS [facility] Stop: 09/30/24 20:59 Last Admin: 09/02/24 20:13 Dose: 40 mg Clozapine (Clozapine 100 Mg Tab) 200 mg PO HS [facility] Stop: 09/30/24 20:59 Last Admin: 09/02/24 20:13 Dose: 200 mg Cyanocobalamin (Cyanocobalamin (B-12) 100 Mcg Tablet) 100 mcg PO QAM [facility] Stop: 10/01/24 08:59 Last Admin: 09/03/24 09:43 Dose: 100 mcg Dextrose (Dextrose 50% 50 Ml Syringe) 25 - 50 ml IV UD PRN; Protocol PRN Reason: Hypoglycemia Protocol Stop: 09/30/24 15:40 Glucagon (Glucagon For Inj 1 Mg Vial) 1 mg SQ UD PRN; Protocol PRN Reason: Hypoglycemia Protocol Stop: 09/30/24 15:40 Glucose (Glucose 40% Gel 15 Gm Tube) 15 - 30 gm PO UD PRN; Protocol PRN Reason: Hypoglycemia Protocol Stop: 09/30/24 15:40 Glucose (Glucose 10 Tab/Tube) 4 - 8 tab PO UD PRN; Protocol PRN Reason: Hypoglycemia Protocol Stop: 09/30/24 15:40 Haloperidol (Haloperidol 5 Mg Tab) 5 mg PO Q12 [facility] Stop: 10/01/24 20:59 Last Admin: 09/03/24 09:42 Dose: 5 mg Haloperidol Lactate (Haloperidol Lactate 5 Mg/Ml 1 Ml Vial) 5 mg IM Q8H PRN PRN Reason: Agitation Stop: 09/30/24 15:50 Insulin Aspart (Insulin Aspart Per Unit Charge) 0 units SC ACHS [facility] Stop: 09/30/24 16:29 Last Admin: 09/03/24 12:16 Dose: Not Given Levothyroxine Sodium (Levothyroxine Sodium 25 Mcg Tablet) 25 mcg PO QAM [facility] Stop: 10/01/24 08:59 Last Admin: 09/03/24 09:42 Dose: 25 mcg Lisinopril (Lisinopril 20 Mg Tab) 20 mg PO DAILY [facility] Stop: 09/30/24 08:59 Last Admin: 09/03/24 09:41 Dose: 20 mg Lorazepam (Lorazepam 2 Mg/1 Ml Vial) 1 mg IM Q8 PRN PRN Reason: refractory agitation Stop: 09/30/24 15:12 Last Admin: 09/02/24 15:12 Dose: 1 mg Lorazepam (Lorazepam 1 Mg Tab) 1 mg PO HS [facility] Stop: 10/01/24 20:59 Last Admin: 09/02/24 20:13 Dose: 1 mg Melatonin (Melatonin 3 Mg Tab) 3 mg PO HS [facility] Stop: 09/30/24 20:59 Last Admin: 09/02/24 20:13 Dose: 3 mg Miscellaneous (Carbohydrates For Hypoglycemia ) 15 - 30 gm PO UD PRN PRN Reason: Hypoglycemia Protocol Stop: 09/30/24 15:40 Multivitamins (Multivitamin Tab) 1 tab PO QAM [facility] Stop: 10/01/24 08:59 Last Admin: 09/03/24 09:43 Dose: 1 tab Nicotine Polacrilex (Nicotine Polacrilex 2 Mg Gum) 1 piece MT Q2H PRN PRN Reason: nicotine cravings Stop: 10/01/24 08:38 Last Admin: 09/02/24 01:59 Dose: 1 piece Paroxetine HCl (Paroxetine Hcl 20 Mg Tab) 30 mg PO BID [facility] Stop: 09/29/24 21:44 Last Admin: 09/03/24 09:43 Dose: 30 mg Polyethylene Glycol (Polyethylene (Miralax) 17 Gm Pack) 17 gm PO DAILY [facility] Stop: 10/01/24 08:59 Last Admin: 09/03/24 10:11 Dose: 17 gm Sennosides (Senna 8.6 Mg Tab) 8.6 mg PO Q2D PRN PRN Reason: constipation Stop: 09/30/24 19:25 Thiamine HCl (Thiamine Hcl 100 Mg Tab) 100 mg PO QAM [facility] Stop: 10/01/24 08:59 Last Admin: 09/03/24 09:42 Dose: 100 mg Topiramate (Topiramate 25 Mg Tab) 25 mg PO BID [facility] Stop: 10/01/24 20:59 Last Admin: 09/03/24 09:41 Dose: 25 mg Vitamin D (Cholecalciferol 25 Mcg (1000 Units) Tab) 50 mcg PO QAM [facility] Stop: 10/01/24 08:59 Last Admin: 09/03/24 09:43 Dose: 50 mcg Mental Health & Subst Abuse Tx Therapist Name of Therapist: none [employer] Pulper Name of [employer] Pulper: none Post Discharge Appointments Primary Care Physician Name Of Family Doctor/PCP: Deonte Martinez
[2024-09-03] MEDS: haloperidoL 0.5 MG TAB PO SCH (14:36)
[2024-09-03 22:18] LABS: Appearance Urine Clear (Clear); Bilirubin Urine Negative (Negative); Blood Urine Negative (Negative); Color Urine Yellow; Glucose Urine UA Negative (Negative); Ketones Urine Negative (Negative); Leukocyte Esterase Urine Negative (Negative); Nitrite Urine Negative (Negative); Protein Urine Negative (Negative); Specific Gravity Urine 1.008 (1.000-1.030); Urobilinogen Urine Negative (Negative)
[2024-09-04] MEDS: haloperidoL 5 MG TAB PO SCH (07:18)
--- NOTE | 2024-09-04 11:45 | Psychiatric Progress Note ---
Date of Service September 04, 2024 Impression / Recommendations Impression 69 M h/o schizophrenia, recent SDH (now resolved) s/p fall long-time resident of [facility] ([facility]) presents with disorganized behaviors and disorientation. Psychiatry consulted for evaluation. Currently on 303 involuntary commitment. Patient with long-term h/o schizophrenia and well connected to outpatient services presents with decompensated psychosis. Concern for disinhibited behaviors, auditory hallucinations, hyperreligiosity, hypersexuality. Initial CK elevated due to psychomotor agitation and now downtrending. Has been requiring behavioral PRNs for control. Medical w/u unremarkable. Collateral obtained from his personal [place] [facility] who notes change in baseline function after recent SDH in July s/p fall (now resolved) and has failed outpatient management. Can return to personal [place] [facility] facility after stabilization. Now on a 303 commitment. Possible some of his symptoms were exacerbated as part of a post TBI psychosis/subdural hematoma. A: Less disoriented today, no signs of agnosia so Kluver Bucy syndrome very unlikely and hyperorality decreasing. Ongoing hypersexual and hyperreligious delusions and loosening of associations. No evidence for EPS or medication side effects and BP remains stable. No evidence to suggest current seizures. Given recent subdural hematoma recommend brain MRI to rule out any evidence for infarct or structural damage to explain new behavioral changes given he had been adherent with his psychiatric medications prior to admission. Overall, I spent a total of 80 minutes with this case including review of chart records, review of labwork, review of head CT, direct evaluation of the patient at bedside, counseling the patient, discussion of the patient with the Nurse and with the hospitalist provider, discussion with the psychiatric liason during clinical rounds and documentation in the electronic health record. (1) Schizophrenia: (2) Acute confusion: (3) Auditory hallucinations: (4) Hypersexuality: (5) Elevated CPK: (6) Psychosis: Plan 09/05/2024: -encourage brain MRI -Will need COVID test -If imaging shows no acute concerns and COVID test is negative then plan for admission to inpatient psychiatry to continue to treat new exacerbation of psychosis 09/03/24: Switch Haloperidol to 2.5mg TID 09/02/24: -Increase Lorazepam to 2mg HS 09/01/24: Start Haloperidol 5mg BID Start Lorazepam 1mg HS Reduce Topiramate to 25mg BID Continue Clozapine 200mg HS Continue Paroxetine 30mg BID For behavioral emergencies: Haloperidol 5mg Q8hr PRN for agitation Lorazepam 1mg Q8hr PRN for anxiety Pursuing 303 involuntary commitment Psychiatry consults to follow Protective Factors Assessment Employed: No Interval History Identifying Information Neftaly Rich is a 69 man with a history of schizophrenia, recent SDH (now resolved) s/p fall long-time resident of [facility] ([facility]) presents with disorganized behaviors and disorientation. Psychiatry consulted for evaluation. Chief Complaint "Braulio is torturing me". Subjective Subjective Patient was seen & assessed and interval progress reviewed. Has been eating well (not excessively per 1-on-1) and he reports thinking he is sleeping well but feels tired. Reports that "Braulio is torturing me, he wants to break my neck". Ongoing episcopalian focus noting "Balaji is my name" and describes that his excessive saliva, which he is spitting into the trash basin is "Braulio is ejaculating in my mouth". Feels he is being targeted due to being "a son of God". Reports visual hallucination of his guardian being next to him in the room. Denies any muscle stiffness nor medication side effects. Struggles to get the bathroom on time when he urinates, he attributes this to difficulty urinating at times. Denies any headaches nor changes in his vision. Was able to name various objects in his room, no oral fixation/hyperorality at time of exam. Physical Exam Psychiatric Orientation: alert, oriented to place (to hospital, not to city but to State) and oriented to time Apperance: + disheveled Eye Contact: + poor eye contact Motor Behavior: no abnormal motor movements Speech: + abnormal rate/rhythm/volume of speech (mumbled at times) Affect: + flat affect Mood: + anxious mood Thought Process: + tangential thought process and + looseness of associations Thought Content: + delusions Hallucinations: + auditory hallucinations and + visual hallucinations Insight: + poor insight Judgment: + poor judgement Vital Signs (Past 24 Hours) Last Vital Signs Temp 36.7 C 09/04/24 07:26 Pulse 89 09/04/24 07:26 Resp 16 09/04/24 07:26 BP 122/76 09/04/24 07:26 Pulse Ox 98 09/04/24 07:26 O2 Del Method Room Air 09/04/24 07:26 Results & Data ([facility]) Laboratory Results Laboratory Results - last 24 hr 09/03/24 09/03/24 09/03/24 16:44 20:29 22:00 POC Glucose 101 H 98 Urine Color Yellow Urine Appearance Clear Urine pH 7.0 Ur Specific Mentcle 1.008 Urine Protein Negative Urine Glucose (UA) Negative Urine Ketones Negative Urine Blood Negative Urine Nitrite Negative Urine Bilirubin Negative Urine Urobilinogen Negative Ur Leukocyte Esterase Negative Urine Comment 09/04/24 07:37 POC Glucose 145 H Urine Color Urine Appearance Urine pH Ur Specific Mentcle Urine Protein Urine Glucose (UA) Urine Ketones Urine Blood Urine Nitrite Urine Bilirubin Urine Urobilinogen Ur Leukocyte Esterase Urine Comment Current Inpatient Medications Current Inpatient Medications: Current Inpatient Medications Acetaminophen (Acetaminophen 325 Mg Tab) 650 mg PO Q4H PRN PRN Reason: pain/fever Stop: 09/30/24 19:25 Last Admin: 09/03/24 12:09 Dose: 650 mg Atorvastatin Calcium (Atorvastatin 40 Mg Tab) 40 mg PO HS [facility] Stop: 09/30/24 20:59 Last Admin: 09/03/24 20:02 Dose: 40 mg Clozapine (Clozapine 100 Mg Tab) 200 mg PO HS [facility] Stop: 09/30/24 20:59 Last Admin: 09/03/24 20:02 Dose: 200 mg Cyanocobalamin (Cyanocobalamin (B-12) 100 Mcg Tablet) 100 mcg PO QAM [facility] Stop: 10/01/24 08:59 Last Admin: 09/04/24 07:17 Dose: 100 mcg Dextrose (Dextrose 50% 50 Ml Syringe) 25 - 50 ml IV UD PRN; Protocol PRN Reason: Hypoglycemia Protocol Stop: 09/30/24 15:40 Glucagon (Glucagon For Inj 1 Mg Vial) 1 mg SQ UD PRN; Protocol PRN Reason: Hypoglycemia Protocol Stop: 09/30/24 15:40 Glucose (Glucose 40% Gel 15 Gm Tube) 15 - 30 gm PO UD PRN; Protocol PRN Reason: Hypoglycemia Protocol Stop: 09/30/24 15:40 Glucose (Glucose 10 Tab/Tube) 4 - 8 tab PO UD PRN; Protocol PRN Reason: Hypoglycemia Protocol Stop: 09/30/24 15:40 Haloperidol (Haloperidol 5 Mg Tab) 2.5 mg PO TID [facility] Stop: 10/04/24 08:59 Last Admin: 09/04/24 07:18 Dose: 2.5 mg Haloperidol Lactate (Haloperidol Lactate 5 Mg/Ml 1 Ml Vial) 5 mg IM Q8H PRN PRN Reason: Agitation Stop: 09/30/24 15:50 Insulin Aspart (Insulin Aspart Per Unit Charge) 0 units SC ACHS [facility] Stop: 09/30/24 16:29 Last Admin: 09/04/24 08:55 Dose: Not Given Levothyroxine Sodium (Levothyroxine Sodium 25 Mcg Tablet) 25 mcg PO QAM [facility] Stop: 10/01/24 08:59 Last Admin: 09/04/24 07:18 Dose: 25 mcg Lisinopril (Lisinopril 20 Mg Tab) 20 mg PO DAILY [facility] Stop: 09/30/24 08:59 Last Admin: 09/04/24 07:19 Dose: 20 mg Lorazepam (Lorazepam 2 Mg/1 Ml Vial) 1 mg IM Q8 PRN PRN Reason: refractory agitation Stop: 09/30/24 15:12 Last Admin: 09/02/24 15:12 Dose: 1 mg Lorazepam (Lorazepam 1 Mg Tab) 1 mg PO HS [facility] Stop: 10/01/24 20:59 Last Admin: 09/03/24 20:35 Dose: 1 mg Melatonin (Melatonin 3 Mg Tab) 3 mg PO HS [facility] Stop: 09/30/24 20:59 Last Admin: 09/03/24 20:36 Dose: 3 mg Miscellaneous (Carbohydrates For Hypoglycemia ) 15 - 30 gm PO UD PRN PRN Reason: Hypoglycemia Protocol Stop: 09/30/24 15:40 Multivitamins (Multivitamin Tab) 1 tab PO QAM [facility] Stop: 10/01/24 08:59 Last Admin: 09/04/24 07:18 Dose: 1 tab Nicotine Polacrilex (Nicotine Polacrilex 2 Mg Gum) 1 piece MT Q2H PRN PRN Reason: nicotine cravings Stop: 10/01/24 08:38 Last Admin: 09/03/24 14:43 Dose: 1 piece Paroxetine HCl (Paroxetine Hcl 20 Mg Tab) 30 mg PO BID [facility] Stop: 09/29/24 21:44 Last Admin: 09/04/24 07:19 Dose: 30 mg Polyethylene Glycol (Polyethylene (Miralax) 17 Gm Pack) 17 gm PO DAILY [facility] Stop: 10/01/24 08:59 Last Admin: 09/04/24 08:56 Dose: Not Given Sennosides (Senna 8.6 Mg Tab) 8.6 mg PO Q2D PRN PRN Reason: constipation Stop: 09/30/24 19:25 Thiamine HCl (Thiamine Hcl 100 Mg Tab) 100 mg PO QAM [facility] Stop: 10/01/24 08:59 Last Admin: 09/04/24 07:18 Dose: 100 mg Topiramate (Topiramate 25 Mg Tab) 25 mg PO BID [facility] Stop: 10/01/24 20:59 Last Admin: 09/04/24 07:20 Dose: 25 mg Vitamin D (Cholecalciferol 25 Mcg (1000 Units) Tab) 50 mcg PO QAM [facility] Stop: 10/01/24 08:59 Last Admin: 09/04/24 07:18 Dose: 50 mcg Mental Health & Subst Abuse Tx Therapist Name of Therapist: none Applications Instructor Name of Applications Instructor: none Post Discharge Appointments Primary Care Physician Name Of Family Doctor/PCP: Deonte Martinez (6) Psychosis Psychosis type: schizophrenia Schizophrenia type: paranoid schizophrenia Qualified Code(s): F20.0 - Paranoid schizophrenia
[2024-09-04] MEDS ORDERED: GADOXETATE DISODIUM IV ONE (12:55)
[2024-09-04] MEDS: GADOBUTROL 65ML VIAL IV ONE (12:57)
--- NOTE | 2024-09-04 13:14 | Magnetic Resonance Report ---
MR brain wo/w con CLINICAL HISTORY: subdural sequelae COMPARISON STUDY: CT of 08/30/2024 FINDINGS: There is mild motion artifact. No restricted diffusion seen to suggest acute infarction. No mass effect, midline shift, or hydrocephalus. There are a few scattered small foci of increased FLAI R signal intensity in the periventricular white matter which is nonspecific, but usually represents m ild chronic small vessel ischemic change. There is minimal residual right convexity dural thickening and enhancement which is common after subdural hemorrhage. No other abnormal enhancement seen in the brain. No intracranial hemorrhage seen. There is mild paranasal sinus mucosal thickening and there is fluid in a few right mastoid air cells. IMPRESSION: 1. No acute findings. No residual intracranial hemorrhage seen. 2. Minimal residual right dural thickening and enhancement, common after subdural hemorrhage. No othe r abnormal enhancement seen in the brain. ACT 112: Negative or not required by law. Electronically signed by: Jose Yang M.D. 09/04/2024 1:12 PM
--- NOTE | 2024-09-04 13:59 | Discharge Summary ---
Discharge Summary Date of Service September 04, 2024 Principal Dx & Hospital Course #1 = Principal Diagnosis (1) Psychosis: -patient has hx of paranoid schizophrenia, treated on inpatient psych unit in past -has similar symptoms as documented prior -patient appears very internalized consistent with acute psychosis in setting of known schizophrenia (given disorganization cannot hold conversation, mood changes between agitation and flight of thoughts, delusions) -tox screen negative, no leukocytosis, TSH WNL, LFTs WNL, CT head WNL -unclear trigger for decompensation, given prior hx suspect nonadherence to medication as potential source vs. progression of illness -has had significant prn antipsychotic use for agitation -continues to be very internalized at this time, strong religion preoccupation Plan: -psychiatry consulted, appreciate recs -medically stable for transfer/discharge to inpatient behavioral health at this time -haldol 5mg IM/PO q8hrs for agitation, ativan 1mg q8hrs for refractory agitation -continue haldol 5mg bid and ativan 1mg HS, appreciate assistance -needs 1 to 1 supervision 07/10 on med surg unit -safe tray, fall precautions -delirium precautions (2) Schizophrenia: -see above (3) Type 2 diabetes mellitus: -insulin ordered (4) Hypertension: -continue lisinopril, atorvastatin Notes For Next Care Provider 69 yo male with pmhx of paranoid schizophrenia (hx of inpatient psych stays in past, most recent 03/09/2024), chronic subdural hematoma (2019) HTN, DM Type 2, HLD, BPH who presents for decompensated psychiatric illness. Attempts made in ED to place patient unsuccessfull, per ED documentation they discussed with psychiatry consult service who recommended admission to medicine for concern for delirium. On medicine, involuntary admission petition made given extent of decompensation. Medications optimized, 1 to 1 supervision given. MR head ordered per psychiatry recommendations (consent obtained from legal guardian via telephone), appreciate recs, relatively unremarkable. On 09/04/2024 patient medically stable for discharge to behavioral health. Medication Changes From Visit -see below Admission HPI Per Admitting Provider 69 yo male with pmhx of paranoid schizophrenia (hx of inpatient psych stays in past, most recent 03/09/2024), chronic subdural hematoma (2019) HTN, DM Type 2, HLD, BPH who presents for decompensated psychiatric illness. Of note, had inpatient psych admission on 02/2024 for similar symptoms, adjustments made in medications as patient had stopped taking meds, discharged back to [facility] assisted living. In the ED today, psychiatry consulted, inpatient psych here refused inpatient psych admission but recommended admission to medicine for "delirium". Attempts made by ED to find accepting facilities were declined as well. Patient seen and examined at bedside accompanied by nurse. Patient unable to have conversation at this time, talking about "doing LSD and steroids", was eating flower pot dirt at [facility]. Unable to hold any type of conversation, generally responds to questions only sparingly. Discharge Exam Gen: A&O 2 HEENT: NCAT, EOMI, not icteric. External ears normal. No rhinorrhea. Moist mucous membranes. Neck: Supple, full range of motion, no observable masses, No meningeal sign. Lungs: No Respiratory distress. CV: RRR, no edema. Abdomen: Soft, nondistended, No rebound tenderness. MSK: No joint swelling, no redness. Skin: No rashes, petechiae, lesions. Normal color per patient. Neuro: Normal Gait, Grossly intact. Psych: very internalized, responds only sparingly to questions, confused Updated Medication List Medication Instructions Recorded Confirmed Type atorvastatin 40 mg tablet 40 mg PO HS 04/19/18 08/30/24 History cholecalciferol (vitamin D3) 50 2,000 unit PO QAM 04/19/18 08/30/24 History mcg (2,000 unit) capsule (Vitamin D3) clozapine 200 mg tablet 200 mg PO HS 04/19/18 08/30/24 History levothyroxine 25 mcg tablet 25 mcg PO QAM 04/19/18 08/30/24 History metformin 1,000 mg tablet 1,000 mg PO BID17 04/19/18 08/30/24 History multivitamin (Daily-Izaiah tablet) 1 tab PO DAILY 06/13/19 08/30/24 History acetaminophen 325 mg tablet 650 mg PO Q4 PRN Pain, Moderate 12/07/20 08/30/24 History lisinopril 20 mg tablet 20 mg PO DAILY 12/07/20 08/30/24 History meloxicam 15 mg tablet 15 mg PO DAILY pain 02/10/24 08/30/24 History topiramate 50 mg tablet 50 mg PO BID 02/10/24 08/30/24 History cyanocobalamin (vitamin B-12) 100 100 mcg PO QAM #30 tabs 02/19/24 08/30/24 Rx mcg tablet (Vitamin B-12) polyethylene glycol 3350 17 gram 17 g PO DAILY #30 ea 02/19/24 08/30/24 Rx oral powder packet (Miralax) sennosides 8.6 mg tablet (senna) 8.6 mg PO Q2D PRN constipation #14 02/19/24 08/30/24 Rx tabs bismuth subsalicylate 525 mg/15 mL 525 mg PO DIRECTED PRN Upset 07/20/24 08/30/24 History oral suspension Stomach, abdominal pain cyproheptadine 4 mg tablet 4 mg PO DAILY 07/20/24 08/30/24 History dextromethorphan-guaifenesin 10 10 ml PO TID PRN Cough 07/20/24 08/30/24 History mg-100 mg/5 mL oral liquid (Tussin DM) paroxetine HCl 30 mg tablet 30 mg PO BID 08/30/24 08/30/24 History topiramate 25 mg tablet 25 mg PO BID #30 tabs 09/04/24 Rx Hospital Stay Data Consultations 08/31/24 11:42 Consult Psychiatry Routine 08/31/24 14:47 ED Decision to Admit Stat Diagnostic Imagining Performed 08/30/24 16:06 CT head/brain wo con Stat 09/04/24 10:54 MRI Brain [MR brain wo/w con] Urgent Pending Results Patient Have Any Pending Studies at Discharge: No Discharge Instructions Given to Patient (Per Discharging Provider) 1. Transfer to inpatient behavioral health facility. Total Time Total Time Spent Total Time Spent (In Minutes): I spent a total of 35 minutes in direct patient care, including [id number] time with the patient and/or family, reviewing medical records, ordering and reviewing diagnostic tests, and coordinating care with other healthcare providers. This time includes: history taking, physical examination, medical decision making, counseling, ECG interpretation, imaging interpretation, lab interpretation, orders, and education, excluding time spent in the performance of separately billed services.
== END 2024-09-04 14:56 | DRG 885 ==
LOC: ED 15:54 → 3W 08-31 15:07

== ENCOUNTER 2024-09-04 13:52 | Inpatient (IN) ==
[2024-09-04] MEDS ORDERED: ALUMINUM/MAGNESIUM SUSP 30 ML UDC PO PRN (14:12)
[2024-09-04] MEDS ORDERED: BISMUTH SUBSALICYLATE 262 MG CHEW PO PRN (14:12)
[2024-09-04] MEDS ORDERED: SODIUM CHLORIDE 0.65% NA SOLN 45 ML (OCEAN) PRN (14:12)
[2024-09-04] MEDS ORDERED: SENNA 8.6 MG TAB PO PRN (15:31)
[2024-09-04] MEDS ORDERED: HALOPERIDOL LACTATE 5 MG/ML 1 ML VIAL IM PRN (15:35)
[2024-09-04] MEDS: TOPIRAMATE 25 MG TAB PO SCH (19:34)
[2024-09-04] MEDS: ATORVASTATIN 40 MG TAB PO SCH (19:35)
[2024-09-04] MEDS: LORazepam 1 MG TAB PO SCH (21:04)
[2024-09-05] MEDS: LEVOTHYROXINE SODIUM 25 MCG TABLET PO SCH (08:27)
[2024-09-05] MEDS: CYANOCOBALAMIN (B-12) 100 MCG TABLET PO SCH (08:27)
[2024-09-05] MEDS: CHOLECALCIFEROL 25 MCG (1000 UNITS) TAB PO SCH (08:28)
[2024-09-05] MEDS: MELOXICAM 7.5 MG TAB PO SCH (08:29)
[2024-09-05] MEDS: MULTIVITAMIN TAB PO SCH (08:29)
[2024-09-05] MEDS: POLYETHYLENE (MIRALAX) 17 GM PACK PO SCH (08:32)
[2024-09-05] MEDS: NICOTINE 21 MG/24 HR TDSY TD SCH (09:54)
--- NOTE | 2024-09-05 09:56 | History & Physical ---
Date of Service September 05, 2024 Impression / Recommendations Impression REBA KELLY is a 69-year-old man who currently lives [facility], has a history of schizophrenia, recent subdural hematoma, HTN, Type II diabetes, HLD, BPH and was admitted on 09/04/24 14:12 on a 303 involuntary commitment for psychosis and disorganization. Diagnostically consistent with acute exacerbation of schizophrenia vs post TBI/subdural psychosis given recent fall and hematoma in July 2024. Medical team felt delirium unlikely and his confusion has lessened. Ongoing loosening associations, hyperreligious and paranoia delusions, disorganized behaviors at times, and auditory and visual hallucinations. He had been stable on clozapine for many years but seems to have decompensated in the setting of his recent fall. Given symptoms of hyperreligious beliefs, initial poor sleep and concern for psychomotor activation (suspected cause of his elevated CK on medical admission) possibility of schizoaffective disorder but would be atypical for first episode of dolores to show up at his age. rather suspect that recent bleed may have contributed to some increased disinhibition leading to odd behaviors, worsened psychosis and hyperreligious delusions. No signs to suggest seizure at this time nor while on the medical service but his risk for this is higher given recent subdural hematoma. Brain MRI yesterday showed no abnormal brain enhancements, some mild chronic small vessel ischemic change which could partially explain why his brain may now be more vulnerable to psychosis if a mild cognitive impairment process is also at play. UA normal, no reason to suspect UTI at this time. Discussed medication treatment options. Discussed risks, benefits and alternatives. He remains agreeable to taking clozapine, haldol, ativan, topiramate and paxil and Depakote. Reduced Paxil dose in case this could be contributing to possible mixed mood episode. Will start Depakote off-label for mood symptoms/disinhibition as this can be neuroprotective following brain bleeds and can help with impulsivity and disinhibition and neuropsychiatric symptoms and may allow for taper of haldol to return to monotherapy with clozapine. Will continue with haldol and ativan as these seem to be helping him become more behaviorally organized. Reviewed side effects including but not limited to: movement (TD, NMS), cardiac (QTc prolongation), and metabolic (stroke, insulin resistance) and necessity for fasting lipid and glucose labwork and AIMS done with score of 1 (possible tongue movement). Reviewed risk of liver damage, GI symptoms, sedation with Depakote. Reviewed risk of dizziness, falls with ativan. MNPR due to recent disrobing, psychosis, disorganization Overall I spent a total of 75 minutes for this admission including review of chart records, review of labwork, direct evaluation of the patient, counseling the patient, ordering medication, risk assessment, discussion with the psychiatric liason RN and documentation in the electronic health record. (1) Psychosis: Psychosis type: schizophrenia Schizophrenia type: paranoid schizophrenia Qualified Code(s): F20.0 - Paranoid schizophrenia (2) Schizophrenia: (3) Hypersexuality: (4) Auditory hallucinations: (5) Hyperlipidemia: (6) Type 2 diabetes mellitus: (7) Hypertension: (8) SDH (subdural hematoma): Plan 09/05/2024: The patient was admitted to the [facility] on q15 min checks (behavioral with suicide precautions) for safety. The patient will participate in group, recreational, and milieu therapies and will be offered additional individual and family sessions as clinically appropriate. -Continue psychiatric medications: * Clozapine 200mg HS (consider further dose titration) * Topiramate 25mg BID * Haldol 2.5mg TID * Ativan 1mg HS (goal to taper as sleep improves and stabilizes) -Adjust: * Paxil from 30mg BID to 30mg daily -Start: * Depakote ER 250mg HS -Clozapine level, fasting lipid panel, HBA1c tomorrow AM -Repeat EKG given his age and now on multiple medications that can impact QTc interval Inventory Assets Strengths: supportive living environment, cooperative Needs: safety and stabilization, medication adjustment, additional coping skills, increased outpatient services Suicide Risk Level Suicide Risk Level: Moderate (q15 min suicide checks) (denies SI but with increased hallucinations and delusions which are negatively impacting his mood and are distressing) Suicide Risk Level Comments: Risk Factors Assessment Male: Yes : Yes Do You Have Access To A Gun?: No Health Problems: Yes Mental Health Diagnoses: Yes Substance Use Disorders: No Previous Attempt: No Family History of Suicide: No Previous Psychiatric Hospitalization: Yes Hopelessness: No Protective Factors Assessment Sikhism Beliefs: Yes Good Rapport with Provider: Yes Psychiatric History Identifying Data REBA KELLY is a 69-year-old man who currently lives [facility], has a history of schizophrenia, recent subdural hematoma, HTN, Type II diabetes, HLD, BPH and was admitted on 09/04/24 14:12 on a 303 involuntary commitment for psychosis and disorganization. Chief Complaint "Satlinh is putting me through hell". History of Present Illness Reba was initially brought to the hospital on a 302 warrant from [facility] due to increased disorganization including urinating on the floor, flooding his toilet, and eating dirt out of the flower pots. He was disoriented in the ED and admitted medically due to concern for possible delirium or psychiatric symptoms as a sequelae from recent subdural hematoma. Apparently he had been adherent with all of his outpatient psychiatric medications in the weeks prior to admission and emergence of these symptoms. He had also been seen in the ED a few days prior, on 08/25/2024, for headache, confusion and elevated CPK and discharged back to [facility] where he subsequently decompensated further. On the medical service he was hyperreligious, often chewing on bedding or holding towels in his mouth, restless at times and disrobing inappropriately. Initially his sleep was quite disrupted but this improved with addition of ativan and haldol. Further infomation per initial psychiatry consult note by Dr. Humphrey on 09/01/2024: "Chart review: Seen in [facility] 02/11/24 to 02/20/24 for decompensated psychosis 2/2 med non-adherence. Clozapine titrated back to therapeutic dose and d/c back to [facility]. On exam, pt is AO to self and place. Unable to state year or reason for hospitalization. Denies med s/e and reports regular adherence. Reports voices are torturous and he puts his hands over his years to quiet them. Responds inappropriately and he is disoriented. Talks about satan. Denies SI. Appears calm. Reports feeling safe. Denies pain. Sitter reports no agitated behaviors this morning. 09/01/24 09:53 - Psychiatric Liason Note by Tip Ortega RN Spoke with Dayana the firewall administrator at [facility] where patient resides, she states that they have been caring for patient for 25 years and his behavior the last few weeks has been completely out of character for him - "he is normally a very modest carolyn", per Dayana patient had a fall in July resulting in a subdural hematoma that he was treated at [facility] for - since then "he has had glimpses of his old self, but hasn't been the same since the fall/head injury", patient was brought to [facility] last Friday for AMS and the head CT at that time showed an almost complete resolution of the hematoma and he was discharged back to the personal correction, Dayana states that they have 24/7 care and patient has been taking his medications each day, patient has seen his outpatient neurologist/PCP/psychiatrist and they have not been able to provide any answers for patient's change in mental status, Dayana would like to be updated on disposition planning but that patient can return to [facility] at discharge. Dayana can be reached at [phone] with any updates regarding patient. Patient seen on rounds with Dr. Humphrey, alert and oriented x 2 - more aware than previous assessment, patient denies any needs but states "I'm insane", denies hallucinations/delusions - "I am a lion and when I roar I cover my ears", patient has been discussing "dragon cum" and "satan's cum" intermittently with staff but otherwise has been appropriate on the floor, psychiatrist to make recommendation and team will continue to follow." Last evening after arriving to the psychiatry unit he urinated in the hallway and was paranoid about the female RNs. Ultimately he agreed to get up off of the floor after speaking with one of the counselors who he remembered and trusts from previous admissions. This morning he has been walking around with a bible and magazine tucked into his underwear briefs. This morning he reports feeling tired and that his mood is "poor". Compliments my eye color and then asks me if I am jealous of his . Feels he is "carrying the sins of the world" and that "Satan is putting me through hell". Past Psychiatric History Current Psychiatric Diagnosis: Schizophrenia Outpatient Services: [facility] for psychiatry with Haley Mazariegos Previous Psych Admissions: [facility] in January 2024 prior to this had been stable for many years. Earlier in his life multiple admissions including: [facility], [place], [place], [facility] Do You Have Access To A Gun?: No History of Previous Suicide Attempt: No Past Medication Trials: per chart review: various antipsychotics, denies any prior allergic reactions or bad responses but states he doesn't find them to be "good meds" Past Head Trauma/Neuro History History of Concussion/Seizure: Yes (hx of seizure in the past) Allergies Allergy/AdvReac Type Severity Reaction Status Date / Time Penicillins Allergy Intermediate nausea/vomi Verified 12/21/20 22:47 ting Home Medications Medication Instructions Recorded Confirmed Type atorvastatin 40 mg tablet 40 mg PO HS 04/19/18 09/04/24 History cholecalciferol (vitamin D3) 50 2,000 unit PO QAM 04/19/18 09/04/24 History mcg (2,000 unit) capsule (Vitamin D3) clozapine 200 mg tablet 200 mg PO HS 04/19/18 09/04/24 History levothyroxine 25 mcg tablet 25 mcg PO QAM 04/19/18 09/04/24 History metformin 1,000 mg tablet 1,000 mg PO BID17 04/19/18 09/04/24 History multivitamin (Daily-Izaiah tablet) 1 tab PO DAILY 06/13/19 09/04/24 History lisinopril 20 mg tablet 20 mg PO DAILY 12/07/20 09/04/24 History cyanocobalamin (vitamin B-12) 100 100 mcg PO QAM #30 tabs 02/19/24 09/04/24 Rx mcg tablet (Vitamin B-12) polyethylene glycol 3350 17 gram 17 g PO DAILY #30 ea 02/19/24 09/04/24 Rx oral powder packet (Miralax) sennosides 8.6 mg tablet (senna) 8.6 mg PO Q2D PRN constipation #14 02/19/24 09/04/24 Rx tabs paroxetine HCl 30 mg tablet 30 mg PO BID 08/30/24 09/04/24 History meloxicam 15 mg tablet 15 mg PO DAILY 09/04/24 09/04/24 History topiramate 25 mg tablet 25 mg PO BID #30 tabs 09/04/24 09/04/24 Rx Family History Family History of: Doesn't Know Alcohol History Hx of Alcohol Use Over the Past 12 Months: No AUDIT Total Score: 0 Smoking Use Have You Smoked or Used Tobacco Products in the Last 30 Days: Yes tobacco type: smokeless tobacco Substance History Hx of Prescription Med Misuse Over the Past 12 Months: No (denies) Hx of Over the Counter Med Misuse Over the Past 12 Months: No Hx of Inhalent Misuse Over the Past 12 Months: No (denies) Hx of Organic Substance Use Over the Past 12 Months: No Hx of Illegal Substances/Street Drug Use Over Past 12 Months: No Problems as a Result of Past Substance Use: None Identified Personal History Living Arrangements: Assisted Living Living Arrangements Comments: Resides at [facility] Completed Comment: Unknown Employment Status: Disabled Marital Status: Single Beliefs That Will Affect Care: None Patient History Medical History Morbid obesity Seizures Family History Other Family history non-contributory Social History Smoking Status: Unknown if ever smoked Tobacco Type: Smokeless Tobacco (Dip or Chew) Hx Alcohol Use: No Hx Substance Use: No Preferred Language: Algerian Communication Ability: Effective Sole Layer Hand Required: No Beliefs That Will Affect Care: None Current Living Situation Comment: Previously lived in residential. current occupational status: employed Feels Safe at Home: Yes Gender Identity: Male Assistive Devices: Walker Assistive Devices Comment: Patient has his personal walker with him Review of Systems Review of Systems: Unobtainable due to mental health condition Physical Exam Psychiatric: Orientation: alert, oriented to place, oriented to time and cooperative Apperance: appropriately dressed and + disheveled Eye Contact: good eye contact Motor Behavior: no abnormal motor movements Speech: + abnormal rate/rhythm/volume of speech (soft, ,mumbled at times) Affect: + flat affect Mood: + depressed mood and + anxious mood Thought Process: + tangential thought process and + looseness of associations Thought Content: + paranoid and + delusions Suicidal Thoughts: denies suicidal thoughts, denies suicidal plan and denies suicidal intent Homicidal Thoughts: denies homicidal thoughts Hallucinations: + auditory hallucinations and + visual hallucinations Cognition: recent memory grossly intact, remote memory grossly intact, attention grossly intact and language grossly intact Insight: + poor insight Judgment: + limited judgement Vital Signs (Past 24 Hours): Last Vital Signs Temp 36.1 C L 09/05/24 05:30 Pulse 93 H 09/05/24 05:30 Resp 17 09/05/24 05:30 BP 168/93 H 09/05/24 05:30 Pulse Ox 97 09/05/24 05:30 O2 Del Method Room Air 09/05/24 05:30 Exam Statement: A physical exam was performed on the medical floor by Dr. Arrieta for the purposes of medical clearance. I accept that physical as correct and adequate for the purposes of the inpatient physical exam. Results & Data ([facility]) Laboratory Results Laboratory Results - last 24 hr 09/04/24 09/04/24 17:13 19:59 POC Glucose 93 114 H Current Inpatient Medications Current Inpatient Medications: Current Inpatient Medications Acetaminophen (Acetaminophen 325 Mg Tab) 650 mg PO Q4H PRN PRN Reason: Headache or Minor Fever Stop: 10/04/24 14:11 Al Hydrox/Mg Hydrox/Simethicone (Aluminum/Magnesium Susp 30 Ml Udc) 30 ml PO Q4H PRN PRN Reason: GI Upset Stop: 10/04/24 14:11 Atorvastatin Calcium (Atorvastatin 40 Mg Tab) 40 mg PO HS BEATRICE Stop: 10/04/24 21:59 Last Admin: 09/04/24 19:35 Dose: 40 mg Bismuth Subsalicylate (Bismuth Subsalicylate 262 Mg Chew) 2 tab PO Q30M PRN PRN Reason: Loose Stool/Diarrhea Stop: 10/04/24 14:11 Clozapine (Clozapine 100 Mg Tab) 200 mg PO HS BEATRICE Stop: 10/04/24 21:59 Last Admin: 09/04/24 19:35 Dose: 200 mg Cyanocobalamin (Cyanocobalamin (B-12) 100 Mcg Tablet) 100 mcg PO QAM [facility] Stop: 10/05/24 08:59 Last Admin: 09/05/24 08:27 Dose: 100 mcg Haloperidol (Haloperidol 5 Mg Tab) 2.5 mg PO TID [facility]ATRICE Stop: 10/04/24 20:59 Last Admin: 09/05/24 08:28 Dose: 2.5 mg Haloperidol Lactate (Haloperidol Lactate 5 Mg/Ml 1 Ml Vial) 5 mg IM BID PRN PRN Reason: agitation Stop: 10/04/24 15:34 Hydroxyzine HCl (Hydroxyzine Hcl 25 Mg Tab) 50 mg PO HSZ PRN PRN Reason: Insomnia Stop: 10/04/24 14:11 Hydroxyzine HCl (Hydroxyzine Hcl 25 Mg Tab) 25 mg PO Q4H PRN PRN Reason: Anxiety Stop: 10/04/24 14:11 Levothyroxine Sodium (Levothyroxine Sodium 25 Mcg Tablet) 25 mcg PO DAILYBB [facility]ATRICE Stop: 10/05/24 07:59 Last Admin: 09/05/24 08:27 Dose: 25 mcg Lisinopril (Lisinopril 20 Mg Tab) 20 mg PO DAILY [facility]RICE Stop: 10/05/24 08:59 Last Admin: 09/05/24 08:29 Dose: 20 mg Lorazepam (Lorazepam 1 Mg Tab) 2 mg PO HS BEATRICE Stop: 10/04/24 21:59 Last Admin: 09/04/24 21:04 Dose: 2 mg Lorazepam (Lorazepam 2 Mg/1 Ml Vial) 1 mg IM BID PRN PRN Reason: Agitation Stop: 10/04/24 15:34 Magnesium Hydroxide (Magnesium Hydroxide Susp 30 Ml Udc) 30 ml PO DAILY PRN PRN Reason: Constipation Stop: 10/04/24 14:11 Meloxicam (Meloxicam 7.5 Mg Tab) 15 mg PO DAILY BEATRICE Stop: 10/05/24 08:59 Last Admin: 09/05/24 08:29 Dose: 15 mg Metformin HCl (Metformin Hcl 500 Mg Tab) 1,000 mg PO BID17 [facility]RICE Stop: 10/04/24 16:59 Last Admin: 09/05/24 08:29 Dose: 1,000 mg Miscellaneous (Remove Nicoderm Patch) 1 each N/A 2100 BEATRICE Stop: 10/05/24 20:59 Multivitamins (Multivitamin Tab) 1 tab PO DAILY BEATRICE Stop: 10/05/24 08:59 Last Admin: 09/05/24 08:29 Dose: 1 tab Nicotine (Nicotine 21 Mg/24 Hr Tdsy) 1 patch TD QAM [facility]ATRICE Stop: 10/05/24 09:44 Nicotine Polacrilex (Nicotine Polacrilex 2 Mg Gum) 1 piece MT Q2H PRN PRN Reason: smoking cessation Stop: 10/04/24 15:22 Paroxetine HCl (Paroxetine Hcl 10 Mg Tab) 30 mg PO DAILY BEATRICE Stop: 10/05/24 08:59 Last Admin: 09/05/24 08:29 Dose: 30 mg Polyethylene Glycol (Polyethylene (Miralax) 17 Gm Pack) 17 gm PO DAILY [facility]ATRICE Stop: 10/05/24 08:59 Last Admin: 09/05/24 08:32 Dose: 17 gm Sennosides (Senna 8.6 Mg Tab) 8.6 mg PO Q2D PRN PRN Reason: constipation Stop: 10/04/24 15:30 Sodium Chloride (Sodium Chloride 0.65% Na Soln 45 Ml ([place])) 1 - 2 sprays NA PRN PRN PRN Reason: Nasal Dryness/Congestion Stop: 10/04/24 14:11 Topiramate (Topiramate 25 Mg Tab) 25 mg PO BID [facility]RICE Stop: 10/04/24 20:59 Last Admin: 09/05/24 08:30 Dose: 25 mg Vitamin D (Cholecalciferol 25 Mcg (1000 Units) Tab) 50 mcg PO QAM [facility] Stop: 10/05/24 08:59 Last Admin: 09/05/24 08:28 Dose: 50 mcg
[2024-09-05] MEDS ORDERED: IPRATROPIUM BROMIDE NASAL SPRAY 0.06% 15ML NAE PRN (13:10)
[2024-09-05] MEDS: NICOTINE POLACRILEX 2 MG GUM MT PRN (14:33)
[2024-09-05] MEDS: IPRATROPIUM BROMIDE NASAL SPRAY 0.06% 15ML NAE SCH (21:04)
[2024-09-05] MEDS: LORazepam 1 MG TAB PO SCH (21:12)
[2024-09-05] MEDS: DIVALPROEX EXTENDED RELEASE 250 MG TABCR PO SCH (21:43)
[2024-09-05] MEDS: REMOVE NICODERM PATCH SCH (22:00)
[2024-09-06] MEDS: LORazepam 1 MG TAB PO PRN (02:20)
--- NOTE | 2024-09-06 12:59 | Psychiatric Progress Note ---
Date of Service September 06, 2024 Impression / Recommendations Impression REBA KELLY is a 69-year-old man who currently lives [facility], has a history of schizophrenia, recent subdural hematoma, HTN, Type II diabetes, HLD, BPH and was admitted on 09/04/24 14:12 on a 303 involuntary commitment for psychosis and disorganization. Diagnostically consistent with acute exacerbation of schizophrenia vs post TBI/subdural psychosis given recent fall and hematoma in July 2024. Medical team felt delirium unlikely and his confusion has lessened. Ongoing loosening associations, hyperreligious and paranoia delusions, disorganized behaviors at times, and auditory and visual hallucinations. He had been stable on clozapine for many years but seems to have decompensated in the setting of his recent fall. Given symptoms of hyperreligious beliefs, initial poor sleep and concern for psychomotor activation (suspected cause of his elevated CK on medical admission) possibility of schizoaffective disorder but would be atypical for first episode of dolores to show up at his age. rather suspect that recent bleed may have contributed to some increased disinhibition leading to odd behaviors, worsened psychosis and hyperreligious delusions. No signs to suggest seizure at this time nor while on the medical service but his risk for this is higher given recent subdural hematoma. Brain MRI yesterday showed no abnormal brain enhancements, some mild chronic small vessel ischemic change which could partially explain why his brain may now be more vulnerable to psychosis if a mild cognitive impairment process is also at play. UA normal, no reason to suspect UTI at this time. A: Ongoing psychosis with delusions and poor sleep. Labwork ordered but he ate last night so moved to tomorrow. Will increase Depakote further tonight and increase ipratropium bromide spray to target salivation from clozapine. MNPR due to recent disrobing, psychosis, disorganization Overall, I spent a total of 40 minutes on this case including meeting with the patient, reviewing the chart, nursing report, multidisciplinary team meeting, orders, and documentation. (1) Psychosis: (2) Schizophrenia: (3) Hypersexuality: (4) Auditory hallucinations: (5) Hyperlipidemia: (6) Type 2 diabetes mellitus: (7) Hypertension: Plan 09/06/2024: -Increase Depakote ER to 500mg -Increase ipratropium bromide 0.06% under the tongue to 2 sprays TID -taper Topiramate to 25mg HS to reduce polypharmacy burden 09/05/2024: The patient was admitted to the [facility] ([facility] mental [facility] unit) on q15 min checks (behavioral with suicide precautions) for safety. The patient will participate in group, recreational, and milieu therapies and will be offered additional individual and family sessions as clinically appropriate. -Continue psychiatric medications: * Clozapine 200mg HS (consider further dose titration) * Topiramate 25mg BID * Haldol 2.5mg TID * Ativan 1mg HS (goal to taper as sleep improves and stabilizes) -Adjust: * Paxil from 30mg BID to 30mg daily -Start: * Depakote ER 250mg HS -Clozapine level, fasting lipid panel, HBA1c tomorrow AM -Repeat EKG given his age and now on multiple medications that can impact QTc in terval Inventory Assets Strengths: supportive living environment, cooperative Needs: safety and stabilization, medication adjustment, additional coping skills, increased outpatient services Suicide Risk Level Suicide Risk Level: Moderate (q15 min suicide checks) (denies SI but with increased hallucinations and delusions which are negatively impacting his mood and are distressing) Suicide Risk Level Comments: Risk Factors Assessment Male: Yes : Yes Do You Have Access To A Gun?: No Health Problems: Yes Mental Health Diagnoses: Yes Substance Use Disorders: No Previous Attempt: No Family History of Suicide: No Previous Psychiatric Hospitalization: Yes Hopelessness: No Protective Factors Assessment Denominational Beliefs: Yes Good Rapport with Provider: Yes Interval History Identifying Information REBA KELLY is a 69-year-old man who currently lives [facility], has a history of schizophrenia, recent subdural hematoma, HTN, Type II diabetes, HLD, BPH and was admitted on 09/04/24 14:12 on a 303 involuntary commitment for psychosis and disorganization. Chief Complaint "I'm showing off for you". Review of Systems Sleep Information Total Hours of Sleep: 5 Sleep Comments: Meal Information Percent Meal Consumed - Breakfast: 100 Percent Meal Consumed - Lunch: 75 Percent Meal Consumed - Dinner: 80 Subjective Subjective Patient was seen & assessed and interval progress reviewed with treatment team. Restless and agitated overnight, responded well to ativan 1mg po prn dose. Today ongoing statements referencing worship beliefs, holding onto bible at most times. Asking nurse meeting manager to write him poems. Observed talking and laughing to himself in his room responding to internal stimuli. Speaking about loving staff members and wanting to have romantic relationships with them. Tearful at one point speaking with me about his friend Coy, who he identifies as being present in the room with us as a visual hallucination. Tells me he didn't have any nightmares last night which he is pleased about. Ongoing sense he is being tortured and targeted by Braulio telling me "always". No change in salivation with the spray. Physical Exam Psychiatric Orientation: alert, oriented to place, oriented to time and cooperative Apperance: appropriately dressed and + disheveled Eye Contact: good eye contact Motor Behavior: no abnormal motor movements Speech: + abnormal rate/rhythm/volume of speech (soft, ,mumbled ) Affect: + flat affect, + tearful affect, + labile affect and + irritable affect Mood: + depressed mood and + anxious mood Thought Process: + tangential thought process and + looseness of associations Thought Content: + paranoid and + delusions Suicidal Thoughts: denies suicidal thoughts, denies suicidal plan and denies suicidal intent Homicidal Thoughts: denies homicidal thoughts Hallucinations: + auditory hallucinations and + visual hallucinations Cognition: recent memory grossly intact, remote memory grossly intact, attention grossly intact and language grossly intact Insight: + poor insight Judgment: + limited judgement Vital Signs (Past 24 Hours) Last Vital Signs Temp 36.6 C 09/06/24 06:25 Pulse 67 09/06/24 06:25 Resp 16 09/06/24 06:25 BP 135/82 09/06/24 06:25 Pulse Ox 97 09/05/24 05:30 O2 Del Method Room Air 09/05/24 05:30 Results & Data ([facility]) Laboratory Results Laboratory Results - last 24 hr 09/06/24 08:25 POC Glucose 131 H Current Inpatient Medications Current Inpatient Medications: Current Inpatient Medications Acetaminophen (Acetaminophen 325 Mg Tab) 650 mg PO Q4H PRN PRN Reason: Headache or Minor Fever Stop: 10/04/24 14:11 Al Hydrox/Mg Hydrox/Simethicone (Aluminum/Magnesium Susp 30 Ml Udc) 30 ml PO Q4H PRN PRN Reason: GI Upset Stop: 10/04/24 14:11 Atorvastatin Calcium (Atorvastatin 40 Mg Tab) 40 mg PO HS [facility] Stop: 10/04/24 21:59 Last Admin: 09/05/24 21:05 Dose: 40 mg Bismuth Subsalicylate (Bismuth Subsalicylate 262 Mg Chew) 2 tab PO Q30M PRN PRN Reason: Loose Stool/Diarrhea Stop: 10/04/24 14:11 Clozapine (Clozapine 100 Mg Tab) 200 mg PO HS [facility] Stop: 10/04/24 21:59 Last Admin: 09/05/24 21:06 Dose: 200 mg Cyanocobalamin (Cyanocobalamin (B-12) 100 Mcg Tablet) 100 mcg PO QAM [facility] Stop: 10/05/24 08:59 Last Admin: 09/06/24 08:37 Dose: 100 mcg Divalproex Sodium (Divalproex Extended Release 250 Mg Tabcr) 250 mg PO HS [facility] Stop: 10/05/24 21:59 Last Admin: 09/05/24 21:43 Dose: 250 mg Haloperidol (Haloperidol 5 Mg Tab) 2.5 mg PO TID [facility] Stop: 10/04/24 20:59 Last Admin: 09/06/24 08:42 Dose: 2.5 mg Haloperidol Lactate (Haloperidol Lactate 5 Mg/Ml 1 Ml Vial) 5 mg IM BID PRN PRN Reason: agitation Stop: 10/04/24 15:34 Hydroxyzine HCl (Hydroxyzine Hcl 25 Mg Tab) 50 mg PO HSZ PRN PRN Reason: Insomnia Stop: 10/04/24 14:11 Hydroxyzine HCl (Hydroxyzine Hcl 25 Mg Tab) 25 mg PO Q4H PRN PRN Reason: Anxiety Stop: 10/04/24 14:11 Ipratropium Viola (Ipratropium Viola Nasal [place] 0.06% 15ml) 1 sprays STEFANIE TID [facility] Stop: 10/05/24 20:59 Last Admin: 09/06/24 10:50 Dose: 1 sprays Levothyroxine Sodium (Levothyroxine Sodium 25 Mcg Tablet) 25 mcg PO DAILYBB [facility] Stop: 10/05/24 07:59 Last Admin: 09/06/24 08:36 Dose: 25 mcg Lisinopril (Lisinopril 20 Mg Tab) 20 mg PO DAILY [facility] Stop: 10/05/24 08:59 Last Admin: 09/06/24 08:40 Dose: 20 mg Lorazepam (Lorazepam 2 Mg/1 Ml Vial) 1 mg IM BID PRN PRN Reason: Agitation Stop: 10/04/24 15:34 Lorazepam (Lorazepam 1 Mg Tab) 1 mg PO DAILY PRN PRN Reason: restlessness Stop: 10/06/24 02:07 Last Admin: 09/06/24 02:20 Dose: 1 mg Magnesium Hydroxide (Magnesium Hydroxide Susp 30 Ml Udc) 30 ml PO DAILY PRN PRN Reason: Constipation Stop: 10/04/24 14:11 Meloxicam (Meloxicam 7.5 Mg Tab) 15 mg PO DAILY [facility] Stop: 10/05/24 08:59 Last Admin: 09/06/24 08:38 Dose: 15 mg Metformin HCl (Metformin Hcl 500 Mg Tab) 1,000 mg PO BID17 [facility] Stop: 10/04/24 16:59 Last Admin: 09/06/24 12:14 Dose: 1,000 mg Miscellaneous (Remove Nicoderm Patch) 1 each N/A 2100 [facility] Stop: 10/05/24 20:59 Last Admin: 09/05/24 22:00 Dose: 1 each Multivitamins (Multivitamin Tab) 1 tab PO DAILY [facility] Stop: 10/05/24 08:59 Last Admin: 09/06/24 08:38 Dose: 1 tab Nicotine (Nicotine 21 Mg/24 Hr Tdsy) 1 patch TD QAM [facility] Stop: 10/05/24 09:44 Last Admin: 09/06/24 08:47 Dose: Not Given Nicotine Polacrilex (Nicotine Polacrilex 2 Mg Gum) 1 piece MT Q2H PRN PRN Reason: smoking cessation Stop: 10/04/24 15:22 Last Admin: 09/06/24 08:49 Dose: 1 piece Paroxetine HCl (Paroxetine Hcl 10 Mg Tab) 30 mg PO DAILY [facility] Stop: 10/05/24 08:59 Last Admin: 09/06/24 08:39 Dose: 30 mg Polyethylene Glycol (Polyethylene (Miralax) 17 Gm Pack) 17 gm PO DAILY [facility] Stop: 10/05/24 08:59 Last Admin: 09/06/24 08:41 Dose: 17 gm Sennosides (Senna 8.6 Mg Tab) 8.6 mg PO Q2D PRN PRN Reason: constipation Stop: 10/04/24 15:30 Sodium Chloride (Sodium Chloride 0.65% Na Soln 45 Ml ([place])) 1 - 2 sprays NA PRN PRN PRN Reason: Nasal Dryness/Congestion Stop: 10/04/24 14:11 Topiramate (Topiramate 25 Mg Tab) 25 mg PO BID [facility] Stop: 10/04/24 20:59 Last Admin: 09/06/24 08:39 Dose: 25 mg Vitamin D (Cholecalciferol 25 Mcg (1000 Units) Tab) 50 mcg PO QAM [facility] Stop: 10/05/24 08:59 Last Admin: 09/06/24 08:37 Dose: 50 mcg Post Discharge Appointments Primary Care Physician Name Of Family Doctor/PCP: Dr. Deonte Martinez (1) Psychosis Psychosis type: schizophrenia Schizophrenia type: paranoid schizophrenia Qualified Code(s): F20.0 - Paranoid schizophrenia
[2024-09-06] MEDS: IPRATROPIUM BROMIDE NASAL SPRAY 0.06% 15ML NAE SCH (21:13)
[2024-09-06] MEDS: DIVALPROEX EXTENDED RELEASE 500 MG TAB PO SCH (21:14)
[2024-09-06] MEDS: TOPIRAMATE 25 MG TAB PO SCH (21:15)
[2024-09-06] MEDS: LORazepam 1 MG TAB PO SCH (21:17)
[2024-09-07 08:20] LABS: Hemoglobin A1C 6.2 % (4.5-5.6)
[2024-09-07 08:42] LABS: Cholesterol 93.0 mg/dl (0-200); HDL Cholesterol 42.0 mg/dl; Triglycerides 69.0 mg/dl (0-150)
--- NOTE | 2024-09-07 09:01 | Psychiatric Progress Note ---
Date of Service September 07, 2024 Impression / Recommendations Impression REBA KELLY is a 69-year-old man who currently lives [facility], has a history of schizophrenia, recent subdural hematoma, HTN, Type II diabetes, HLD, BPH and was admitted on 09/04/24 14:12 on a 303 involuntary commitment for psychosis and disorganization. Diagnostically consistent with acute exacerbation of schizophrenia vs post TBI/subdural psychosis given recent fall and hematoma in July 2024. Medical team felt delirium unlikely and his confusion has lessened. Ongoing loosening associations, hyperreligious and paranoia delusions, disorganized behaviors at times, and auditory and visual hallucinations. He had been stable on clozapine for many years but seems to have decompensated in the setting of his recent fall. Given symptoms of hyperreligious beliefs, initial poor sleep and concern for psychomotor activation (suspected cause of his elevated CK on medical admission) possibility of schizoaffective disorder but would be atypical for first episode of dolores to show up at his age. rather suspect that recent bleed may have contributed to some increased disinhibition leading to odd behaviors, worsened psychosis and hyperreligious delusions. No signs to suggest seizure at this time nor while on the medical service but his risk for this is higher given recent subdural hematoma. Brain MRI yesterday showed no abnormal brain enhancements, some mild chronic small vessel ischemic change which could partially explain why his brain may now be more vulnerable to psychosis if a mild cognitive impairment process is also at play. UA normal, no reason to suspect UTI at this time. A: Ongoing psychosis with delusions and hypersexual comments at times. RNs noticed small wound on his foot so will place wound care consult. Will taper haldol and titrate clozapine with goal of clozapine monotherapy if he can tolerate higher doses. Labwork reviewed and notable for known DM T2 with HBA1c of 6.2%, normal fasting lipid panel, clozapine level pending (typically takes 3- 5 days for level to return). MNPR due to recent disrobing, psychosis, disorganization Overall, I spent a total of 35 minutes on this case including meeting with the patient, reviewing the chart, nursing report, multidisciplinary team meeting, orders, and documentation. (1) Psychosis: (2) Schizophrenia: (3) Hypersexuality: (4) Auditory hallucinations: (5) Hyperlipidemia: (6) Type 2 diabetes mellitus: (7) Hypertension: Plan 09/07/2024: -Decrease haldol to 2.5mg BID -Increase clozapine to 250mg HS 09/06/2024: -Increase Depakote ER to 500mg -Increase ipratropium bromide 0.06% under the tongue to 2 sprays TID -taper Topiramate to 25mg HS to reduce polypharmacy burden 09/05/2024: The patient was admitted to the [facility] ([facility] health unit) on q15 min checks (behavioral with suicide precautions) for safety. The patient will participate in group, recreational, and milieu therapies and will be offered additional individual and family sessions as clinically appropriate. -Continue psychiatric medications: * Clozapine 200mg HS (consider further dose titration) * Topiramate 25mg BID * Haldol 2.5mg TID * Ativan 1mg HS (goal to taper as sleep improves and stabilizes) -Adjust: * Paxil from 30mg BID to 30mg daily -Start: * Depakote ER 250mg HS -Clozapine level, fasting lipid panel, HBA1c tomorrow AM -Repeat EKG given his age and now on multiple medications that can impact QTc interval Inventory Assets Strengths: supportive living environment, cooperative Needs: safety and stabilization, medication adjustment, additional coping skills, increased outpatient services Suicide Risk Level Suicide Risk Level: Moderate (q15 min suicide checks) (denies SI but with increased hallucinations and delusions which are negatively impacting his mood and are distressing) Suicide Risk Level Comments: Risk Factors Assessment Male: Yes : Yes Do You Have Access To A Gun?: No Health Problems: Yes Mental Health Diagnoses: Yes Substance Use Disorders: No Previous Attempt: No Family History of Suicide: No Previous Psychiatric Hospitalization: Yes Hopelessness: No Protective Factors Assessment Anglican Beliefs: Yes Good Rapport with Provider: Yes Interval History Identifying Information REBA KELLY is a 69-year-old man who currently lives [facility], has a history of schizophrenia, recent subdural hematoma, HTN, Type II diabetes, HLD, BPH and was admitted on 09/04/24 14:12 on a 303 involuntary commitment for psychosis and disorganization. Chief Complaint "Your eyes are beautiful". Review of Systems Sleep Information Total Hours of Sleep: 7.5 Meal Information Percent Meal Consumed - Breakfast: 100 Percent Meal Consumed - Lunch: 100 Percent Meal Consumed - Dinner: 100 Subjective Subjective Patient was seen & assessed and interval progress reviewed with nursing and social work. Less mu-ism yesterday evening. Continent yesterday but did struggle to use the toilet at times (observed sitting on toilet with his briefs and pants still on). Showered last evening. Slept well overnight. This morning he was found sitting undressed in his room, told staff this was due to satan pulling down his pants. Later mid-day he took off his sweatshirt, told me this was due to overheating and he was agreeable to changing into a t-shirt. Speaks about blessing staff and continues to carry around his bible. Episode of urinary incontinence today. Eating a lot, took a peers breakfast as he was unaware it belonged to someone else and was in the fridge. Wrote a poem to a peer. Denies any medication side effects. Physical Exam Psychiatric Orientation: alert, oriented to place, oriented to time and cooperative Apperance: appropriately dressed and + disheveled Eye Contact: good eye contact Motor Behavior: no abnormal motor movements Speech: + abnormal rate/rhythm/volume of speech (soft, ,mumbled ) Affect: + flat affect, + tearful affect, + labile affect and + irritable affect Mood: + depressed mood and + anxious mood Thought Process: + tangential thought process and + looseness of associations Thought Content: + paranoid and + delusions Suicidal Thoughts: denies suicidal thoughts, denies suicidal plan and denies suicidal intent Homicidal Thoughts: denies homicidal thoughts Hallucinations: + auditory hallucinations and + visual hallucinations Cognition: recent memory grossly intact, remote memory grossly intact, attention grossly intact and language grossly intact Insight: + poor insight Judgment: + limited judgement Vital Signs (Past 24 Hours) Last Vital Signs Temp 36.6 C 09/07/24 06:33 Pulse 71 09/07/24 06:33 Resp 16 09/07/24 06:33 BP 119/75 09/07/24 06:33 Pulse Ox 97 09/05/24 05:30 O2 Del Method Room Air 09/05/24 05:30 Results & Data ([facility]) Laboratory Results Laboratory Results - last 24 hr 09/07/24 09/07/24 07:31 07:47 POC Glucose 112 H Estimat Average Glucose 131 Hemoglobin A1c 6.2 H Triglycerides 69 Cholesterol 93 LDL Cholesterol, Calc 37 VLDL Cholesterol, Calc 14 HDL Cholesterol 42 Cholesterol/HDL Ratio 2.2 Clozapine Pending Norclozapine Pending Current Inpatient Medications Current Inpatient Medications: Current Inpatient Medications Acetaminophen (Acetaminophen 325 Mg Tab) 650 mg PO Q4H PRN PRN Reason: Headache or Minor Fever Stop: 10/04/24 14:11 Al Hydrox/Mg Hydrox/Simethicone (Aluminum/Magnesium Susp 30 Ml Udc) 30 ml PO Q4H PRN PRN Reason: GI Upset Stop: 10/04/24 14:11 Atorvastatin Calcium (Atorvastatin 40 Mg Tab) 40 mg PO HS [facility] Stop: 10/04/24 21:59 Last Admin: 09/06/24 21:13 Dose: 40 mg Bismuth Subsalicylate (Bismuth Subsalicylate 262 Mg Chew) 2 tab PO Q30M PRN PRN Reason: Loose Stool/Diarrhea Stop: 10/04/24 14:11 Clozapine (Clozapine 100 Mg Tab) 200 mg PO HS [facility] Stop: 10/04/24 21:59 Last Admin: 09/06/24 21:14 Dose: 200 mg Cyanocobalamin (Cyanocobalamin (B-12) 100 Mcg Tablet) 100 mcg PO QAM [facility] Stop: 10/05/24 08:59 Last Admin: 09/07/24 07:54 Dose: 100 mcg Divalproex Sodium (Divalproex Extended Release 500 Mg Tab) 500 mg PO HS [facility] Stop: 10/06/24 21:59 Last Admin: 09/06/24 21:14 Dose: 500 mg Haloperidol (Haloperidol 5 Mg Tab) 2.5 mg PO TID [facility] Stop: 10/04/24 20:59 Last Admin: 09/07/24 07:56 Dose: 2.5 mg Haloperidol Lactate (Haloperidol Lactate 5 Mg/Ml 1 Ml Vial) 5 mg IM BID PRN PRN Reason: agitation Stop: 10/04/24 15:34 Hydroxyzine HCl (Hydroxyzine Hcl 25 Mg Tab) 50 mg PO HSZ PRN PRN Reason: Insomnia Stop: 10/04/24 14:11 Hydroxyzine HCl (Hydroxyzine Hcl 25 Mg Tab) 25 mg PO Q4H PRN PRN Reason: Anxiety Stop: 10/04/24 14:11 Ipratropium [place] (Ipratropium [place] Nasal [place] 0.06% 15ml) 2 sprays STEFANIE TID [facility] Stop: 10/06/24 20:59 Last Admin: 09/07/24 07:58 Dose: 2 sprays Levothyroxine Sodium (Levothyroxine Sodium 25 Mcg Tablet) 25 mcg PO DAILYBB [facility] Stop: 10/05/24 07:59 Last Admin: 09/07/24 08:00 Dose: 25 mcg Lisinopril (Lisinopril 20 Mg Tab) 20 mg PO DAILY [facility] Stop: 10/05/24 08:59 Last Admin: 09/07/24 07:54 Dose: 20 mg Lorazepam (Lorazepam 2 Mg/1 Ml Vial) 1 mg IM BID PRN PRN Reason: Agitation Stop: 10/04/24 15:34 Lorazepam (Lorazepam 1 Mg Tab) 1 mg PO DAILY PRN PRN Reason: restlessness Stop: 10/06/24 02:07 Last Admin: 09/06/24 02:20 Dose: 1 mg Lorazepam (Lorazepam 1 Mg Tab) 1 mg PO HS [facility] Stop: 10/06/24 21:59 Last Admin: 09/06/24 21:17 Dose: 1 mg Magnesium Hydroxide (Magnesium Hydroxide Susp 30 Ml Udc) 30 ml PO DAILY PRN PRN Reason: Constipation Stop: 10/04/24 14:11 Meloxicam (Meloxicam 7.5 Mg Tab) 15 mg PO DAILY [facility] Stop: 10/05/24 08:59 Last Admin: 09/07/24 07:55 Dose: 15 mg Metformin HCl (Metformin Hcl 500 Mg Tab) 1,000 mg PO BID17 [facility] Stop: 10/04/24 16:59 Last Admin: 09/07/24 07:56 Dose: 1,000 mg Miscellaneous (Remove Nicoderm Patch) 1 each N/A 2100 [facility] Stop: 10/05/24 20:59 Last Admin: 09/06/24 22:20 Dose: 1 each Multivitamins (Multivitamin Tab) 1 tab PO DAILY [facility] Stop: 10/05/24 08:59 Last Admin: 09/07/24 07:55 Dose: 1 tab Nicotine (Nicotine 21 Mg/24 Hr Tdsy) 1 patch TD QAM [facility] Stop: 10/05/24 09:44 Last Admin: 09/07/24 08:01 Dose: Not Given Nicotine Polacrilex (Nicotine Polacrilex 2 Mg Gum) 1 piece MT Q2H PRN PRN Reason: smoking cessation Stop: 10/04/24 15:22 Last Admin: 09/06/24 08:49 Dose: 1 piece Paroxetine HCl (Paroxetine Hcl 10 Mg Tab) 30 mg PO DAILY [facility] Stop: 10/05/24 08:59 Last Admin: 09/07/24 07:59 Dose: 30 mg Polyethylene Glycol (Polyethylene (Miralax) 17 Gm Pack) 17 gm PO DAILY [facility] Stop: 10/05/24 08:59 Last Admin: 09/07/24 08:02 Dose: 17 gm Sennosides (Senna 8.6 Mg Tab) 8.6 mg PO Q2D PRN PRN Reason: constipation Stop: 10/04/24 15:30 Sodium Chloride (Sodium Chloride 0.65% Na Soln 45 Ml ([place])) 1 - 2 sprays NA PRN PRN PRN Reason: Nasal Dryness/Congestion Stop: 10/04/24 14:11 Topiramate (Topiramate 25 Mg Tab) 25 mg PO HS [facility] Stop: 10/06/24 21:59 Last Admin: 09/06/24 21:15 Dose: 25 mg Vitamin D (Cholecalciferol 25 Mcg (1000 Units) Tab) 50 mcg PO QAM [facility] Stop: 10/05/24 08:59 Last Admin: 09/07/24 07:54 Dose: 50 mcg Mental Health & Subst Abuse Tx Psychiatrist Name of Psychiatrist: Haley PATEL Psychiatrist's Materials Management Manager Name of Materials Management Manager: Linda Morris Post Discharge Appointments Primary Care Physician Name Of Family Doctor/PCP: Dr. Deonte Martinez (1) Psychosis Psychosis type: schizophrenia Schizophrenia type: paranoid schizophrenia Qualified Code(s): F20.0 - Paranoid schizophrenia
--- NOTE | 2024-09-07 16:30 | Electrocardiogram Report ---
Test Reason : Blood Pressure : */* mmHG Vent. Rate : 80 BPM Atrial Rate : 80 BPM P-R Int : 186 ms QRS Dur : 94 ms QT Int : 356 ms P-R-T Axes : 58 54 57 degrees QTcB Int : 410 ms Normal sinus rhythm Nonspecific T wave abnormality Abnormal ECG When compared with ECG of 30-Aug-2024 21:15, No significant change Confirmed by Tip Mac ([id number] on 09/07/2024 4:29:40 PM Referred By: Jazz Orellana Confirmed By: Tip Mac
[2024-09-07] MEDS: DOCUSATE SODIUM 100 MG CAP PO SCH (20:39)
--- NOTE | 2024-09-08 15:57 | Psychiatric Progress Note ---
Date of Service September 08, 2024 Impression / Recommendations Impression REBA KELLY is a 69-year-old man who currently lives [facility], has a history of schizophrenia, recent subdural hematoma, HTN, Type II diabetes, HLD, BPH and was admitted on 09/04/24 14:12 on a 303 involuntary commitment for psychosis and disorganization. Diagnostically consistent with acute exacerbation of schizophrenia vs post TBI/subdural psychosis given recent fall and hematoma in July 2024. Medical team felt delirium unlikely and his confusion has lessened. Ongoing loosening associations, hyperreligious and paranoia delusions, disorganized behaviors at times, and auditory and visual hallucinations. He had been stable on clozapine for many years but seems to have decompensated in the setting of his recent fall. Given symptoms of hyperreligious beliefs, initial poor sleep and concern for psychomotor activation (suspected cause of his elevated CK on medical admission) possibility of schizoaffective disorder but would be atypical for first episode of dolores to show up at his age. rather suspect that recent bleed may have contributed to some increased disinhibition leading to odd behaviors, worsened psychosis and hyperreligious delusions. No signs to suggest seizure at this time nor while on the medical service but his risk for this is higher given recent subdural hematoma. Brain MRI yesterday showed no abnormal brain enhancements, some mild chronic small vessel ischemic change which could partially explain why his brain may now be more vulnerable to psychosis if a mild cognitive impairment process is also at play. UA normal, no reason to suspect UTI at this time. A: Ongoing psychosis with delusions. Appreciate wound nurse consult for his toe wound. He reported and RNs noticed some redness on his scrotum, will order urine testing for chlamydia and gonorrhea. Will also add antifungal cream as he's been wearing briefs and incontinence episodes. MNPR due to recent disrobing, psychosis, disorganization Overall, I spent a total of 37 minutes on this case including meeting with the patient, reviewing the chart, nursing report, multidisciplinary team meeting, orders, and documentation. (1) Psychosis: (2) Schizophrenia: (3) Hypersexuality: (4) Auditory hallucinations: (5) Hyperlipidemia: (6) Type 2 diabetes mellitus: (7) Hypertension: Plan 09/08/2024: -Decrease haldol to 2.5mg HS -Discontinue topiramate -Start nystatin powder for scrotal irritation 09/07/2024: -Decrease haldol to 2.5mg BID -Increase clozapine to 250mg HS 09/06/2024: -Increase Depakote ER to 500mg -Increase ipratropium bromide 0.06% under the tongue to 2 sprays TID -taper Topiramate to 25mg HS to reduce polypharmacy burden 09/05/2024: The patient was admitted to the [facility] ([facility]) on q15 min checks (behavioral with suicide precautions) for safety. The patient will participate in group, recreational, and milieu therapies and will be offered additional individual and family sessions as clinically appropriate. -Continue psychiatric medications: * Clozapine 200mg HS (consider further dose titration) * Topiramate 25mg BID * Haldol 2.5mg TID * Ativan 1mg HS (goal to taper as sleep improves and stabilizes) -Adjust: * Paxil from 30mg BID to 30mg daily -Start: * Depakote ER 250mg HS -Clozapine level, fasting lipid panel, HBA1c tomorrow AM -Repeat EKG given his age and now on multiple medications that can impact QTc interval Inventory Assets Strengths: supportive living environment, cooperative Needs: safety and stabilization, medication adjustment, additional coping skills, increased outpatient services Suicide Risk Level Suicide Risk Level: Moderate (q15 min suicide checks) (denies SI but with increased hallucinations and delusions which are negatively impacting his mood and are distressing) Suicide Risk Level Comments: Risk Factors Assessment Male: Yes : Yes Do You Have Access To A Gun?: No Health Problems: Yes Mental Health Diagnoses: Yes Substance Use Disorders: No Previous Attempt: No Family History of Suicide: No Previous Psychiatric Hospitalization: Yes Hopelessness: No Protective Factors Assessment Gnosticist Beliefs: Yes Good Rapport with Provider: Yes Interval History Identifying Information REBA KELLY is a 69-year-old man who currently lives [facility], has a history of schizophrenia, recent subdural hematoma, HTN, Type II diabetes, HLD, BPH and was admitted on 09/04/24 14:12 on a 303 involuntary commitment for psychosis and disorganization. Chief Complaint mumbles Review of Systems Sleep Information Total Hours of Sleep: 4.50 Meal Information Percent Meal Consumed - Breakfast: 100 Percent Meal Consumed - Lunch: 100 Percent Meal Consumed - Dinner: 95 Subjective Subjective Patient was seen & assessed and interval progress reviewed with treatment team. he was awake most of the night. Disrobing at times. Two episodes of urinary incontinence today. Slept more during the day. References moravian themes and mumbles while speaking with me but also smiles and waves or gives peace sign appropriately when I greet him. He expressed concern about inflammation to RNs who noticed some redness and he reports his scrotum is tender and itchy. he was seen by wound care. Physical Exam Psychiatric Orientation: alert, oriented to place, oriented to time and cooperative Apperance: appropriately dressed and + disheveled Eye Contact: good eye contact Motor Behavior: no abnormal motor movements Speech: + abnormal rate/rhythm/volume of speech (soft, ,mumbled ) Affect: + flat affect, + tearful affect, + labile affect and + irritable affect Mood: + depressed mood and + anxious mood Thought Process: + tangential thought process and + looseness of associations Thought Content: + paranoid and + delusions Suicidal Thoughts: denies suicidal thoughts, denies suicidal plan and denies suicidal intent Homicidal Thoughts: denies homicidal thoughts Hallucinations: + auditory hallucinations and + visual hallucinations Cognition: recent memory grossly intact, remote memory grossly intact, attention grossly intact and language grossly intact Insight: + poor insight Judgment: + limited judgement Vital Signs (Past 24 Hours) Last Vital Signs Temp 36.6 C 09/08/24 04:31 Pulse 92 H 09/08/24 04:33 Resp 17 09/08/24 04:31 BP 127/80 09/08/24 04:33 Pulse Ox 97 09/08/24 04:31 O2 Del Method Room Air 09/08/24 04:31 Results & Data ([facility]) Current Inpatient Medications Current Inpatient Medications: Current Inpatient Medications Acetaminophen (Acetaminophen 325 Mg Tab) 650 mg PO Q4H PRN PRN Reason: Headache or Minor Fever Stop: 10/04/24 14:11 Al Hydrox/Mg Hydrox/Simethicone (Aluminum/Magnesium Susp 30 Ml Udc) 30 ml PO Q4H PRN PRN Reason: GI Upset Stop: 10/04/24 14:11 Atorvastatin Calcium (Atorvastatin 40 Mg Tab) 40 mg PO HS [facility] Stop: 10/04/24 21:59 Last Admin: 09/07/24 20:25 Dose: 40 mg Bismuth Subsalicylate (Bismuth Subsalicylate 262 Mg Chew) 2 tab PO Q30M PRN PRN Reason: Loose Stool/Diarrhea Stop: 10/04/24 14:11 Clozapine (Clozapine 25 Mg Tab) 250 mg PO HS [facility] Stop: 10/07/24 21:59 Last Admin: 09/07/24 20:31 Dose: 250 mg Cyanocobalamin (Cyanocobalamin (B-12) 100 Mcg Tablet) 100 mcg PO QAM [facility] Stop: 10/05/24 08:59 Last Admin: 09/08/24 09:06 Dose: 100 mcg Divalproex Sodium (Divalproex Extended Release 500 Mg Tab) 500 mg PO HS [facility] Stop: 10/06/24 21:59 Last Admin: 09/07/24 20:36 Dose: 500 mg Docusate Sodium (Docusate Sodium 100 Mg Cap) 100 mg PO BID [facility] Stop: 10/07/24 20:59 Last Admin: 09/08/24 09:18 Dose: 100 mg Haloperidol (Haloperidol 0.5 Mg Tab) 2.5 mg PO BID [facility] Stop: 10/07/24 20:59 Last Admin: 09/08/24 09:06 Dose: 2.5 mg Haloperidol Lactate (Haloperidol Lactate 5 Mg/Ml 1 Ml Vial) 5 mg IM BID PRN PRN Reason: agitation Stop: 10/04/24 15:34 Hydroxyzine HCl (Hydroxyzine Hcl 25 Mg Tab) 50 mg PO HSZ PRN PRN Reason: Insomnia Stop: 10/04/24 14:11 Hydroxyzine HCl (Hydroxyzine Hcl 25 Mg Tab) 25 mg PO Q4H PRN PRN Reason: Anxiety Stop: 10/04/24 14:11 Ipratropium [place] (Ipratropium [place] Nasal [place] 0.06% 15ml) 2 sprays STEFANIE TID [facility] Stop: 10/06/24 20:59 Last Admin: 09/08/24 14:19 Dose: 2 sprays Levothyroxine Sodium (Levothyroxine Sodium 25 Mcg Tablet) 25 mcg PO DAILYBB [facility] Stop: 10/05/24 07:59 Last Admin: 09/08/24 08:01 Dose: 25 mcg Lisinopril (Lisinopril 20 Mg Tab) 20 mg PO DAILY [facility] Stop: 10/05/24 08:59 Last Admin: 09/08/24 09:07 Dose: 20 mg Lorazepam (Lorazepam 2 Mg/1 Ml Vial) 1 mg IM BID PRN PRN Reason: Agitation Stop: 10/04/24 15:34 Lorazepam (Lorazepam 1 Mg Tab) 1 mg PO DAILY PRN PRN Reason: restlessness Stop: 10/06/24 02:07 Last Admin: 09/06/24 02:20 Dose: 1 mg Lorazepam (Lorazepam 1 Mg Tab) 1 mg PO HS [facility] Stop: 10/06/24 21:59 Last Admin: 09/07/24 20:38 Dose: 1 mg Magnesium Hydroxide (Magnesium Hydroxide Susp 30 Ml Udc) 30 ml PO DAILY PRN PRN Reason: Constipation Stop: 10/04/24 14:11 Meloxicam (Meloxicam 7.5 Mg Tab) 15 mg PO DAILY [facility] Stop: 10/05/24 08:59 Last Admin: 09/08/24 09:07 Dose: 15 mg Metformin HCl (Metformin Hcl 500 Mg Tab) 1,000 mg PO BID17 [facility] Stop: 10/04/24 16:59 Last Admin: 09/08/24 09:07 Dose: 1,000 mg Miscellaneous (Remove Nicoderm Patch) 1 each N/A 2100 [facility] Stop: 10/05/24 20:59 Last Admin: 09/07/24 20:44 Dose: Not Given Multivitamins (Multivitamin Tab) 1 tab PO DAILY [facility] Stop: 10/05/24 08:59 Last Admin: 09/08/24 09:05 Dose: 1 tab Nicotine (Nicotine 21 Mg/24 Hr Tdsy) 1 patch TD QAM [facility] Stop: 10/05/24 09:44 Last Admin: 09/08/24 09:07 Dose: Not Given Nicotine Polacrilex (Nicotine Polacrilex 2 Mg Gum) 1 piece MT Q2H PRN PRN Reason: smoking cessation Stop: 10/04/24 15:22 Last Admin: 09/07/24 18:00 Dose: 1 piece Paroxetine HCl (Paroxetine Hcl 10 Mg Tab) 30 mg PO DAILY [facility] Stop: 10/05/24 08:59 Last Admin: 09/08/24 10:23 Dose: 30 mg Polyethylene Glycol (Polyethylene (Miralax) 17 Gm Pack) 17 gm PO DAILY [facility] Stop: 10/05/24 08:59 Last Admin: 09/08/24 09:18 Dose: 17 gm Sennosides (Senna 8.6 Mg Tab) 8.6 mg PO Q2D PRN PRN Reason: constipation Stop: 10/04/24 15:30 Sodium Chloride (Sodium Chloride 0.65% Na Soln 45 Ml ([place])) 1 - 2 sprays NA PRN PRN PRN Reason: Nasal Dryness/Congestion Stop: 10/04/24 14:11 Topiramate (Topiramate 25 Mg Tab) 25 mg PO HS [facility] Stop: 10/06/24 21:59 Last Admin: 09/07/24 20:26 Dose: 25 mg Vitamin D (Cholecalciferol 25 Mcg (1000 Units) Tab) 50 mcg PO QAM [facility] Stop: 10/05/24 08:59 Last Admin: 09/08/24 09:04 Dose: 50 mcg Mental Health & Subst Abuse Tx Psychiatrist Name of Psychiatrist: Haley PATEL Psychiatrist's Account Technician Name of Account Technician: Linda Morris Post Discharge Appointments Primary Care Physician Name Of Family Doctor/PCP: Dr. Deonte Martinez (1) Psychosis Psychosis type: schizophrenia Schizophrenia type: paranoid schizophrenia Qualified Code(s): F20.0 - Paranoid schizophrenia
[2024-09-08] MEDS ORDERED: NYSTATIN POWDER 15GM BTL EXT PRN (15:58)
--- NOTE | 2024-09-09 09:08 | Psychiatric Progress Note ---
Date of Service September 09, 2024 Impression / Recommendations Impression REBA KELLY is a 69-year-old man who currently lives [facility], has a history of schizophrenia, recent subdural hematoma, HTN, Type II diabetes, HLD, BPH and was admitted on 09/04/24 14:12 on a 303 involuntary commitment for psychosis and disorganization. Diagnostically consistent with acute exacerbation of schizophrenia vs post TBI/subdural psychosis given recent fall and hematoma in July 2024. Medical team felt delirium unlikely and his confusion has lessened. Ongoing loosening associations, hyperreligious and paranoia delusions, disorganized behaviors at times, and auditory and visual hallucinations. He had been stable on clozapine for many years but seems to have decompensated in the setting of his recent fall. Given symptoms of hyperreligious beliefs, initial poor sleep and concern for psychomotor activation (suspected cause of his elevated CK on medical admission) possibility of schizoaffective disorder but would be atypical for first episode of dolores to show up at his age. rather suspect that recent bleed may have contributed to some increased disinhibition leading to odd behaviors, worsened psychosis and hyperreligious delusions. No signs to suggest seizure at this time nor while on the medical service but his risk for this is higher given recent subdural hematoma. Brain MRI showed no abnormal brain enhancements, some mild chronic small vessel ischemic change which could partially explain why his brain may now be more vulnerable to psychosis if a mild cognitive impairment process is also at play. UA normal, no reason to suspect UTI at this time. A: Ongoing psychosis with delusions, hypersexual statements and disorganized behaviors. Sleep has remained poor even with titration of clozapine. No evidence for side effects so far. Clozapine level is still pending. Will continue with titration. Haldol dose increased due to more frequent disrobing and urinary incontinence when dose was tapered. MNPR due to recent disrobing, psychosis, disorganization Overall, I spent a total of 40 minutes on this case including meeting with the patient, reviewing the chart, nursing report, multidisciplinary team meeting, orders, and documentation. (1) Psychosis: (2) Schizophrenia: (3) Hypersexuality: (4) Auditory hallucinations: (5) Hyperlipidemia: (6) Type 2 diabetes mellitus: (7) Hypertension: Plan 09/09/2024: -Increase haldol back to 2.5mg TID -Increase ipratropium bromide 0.06% under the tongue to 3 sprays TID for sialorrhea -Increase clozapine to 300mg HS 09/08/2024: -Decrease haldol to 2.5mg HS -Discontinue topiramate 09/07/2024: -Decrease haldol to 2.5mg BID -Increase clozapine to 250mg HS 09/06/2024: -Increase Depakote ER to 500mg -Increase ipratropium bromide 0.06% under the tongue to 2 sprays TID -taper Topiramate to 25mg HS to reduce polypharmacy burden 09/05/2024: The patient was admitted to the [facility] ([facility]) on q15 min checks (behavioral with suicide precautions) for safety. The patient will participate in group, recreational, and milieu therapies and will be offered additional individual and family sessions as clinically appropriate. -Continue psychiatric medications: * Clozapine 200mg HS (consider further dose titration) * Topiramate 25mg BID * Haldol 2.5mg TID * Ativan 1mg HS (goal to taper as sleep improves and stabilizes) -Adjust: * Paxil from 30mg BID to 30mg daily -Start: * Depakote ER 250mg HS -Clozapine level, fasting lipid panel, HBA1c tomorrow AM -Repeat EKG given his age and now on multiple medications that can impact QTc interval Inventory Assets Strengths: supportive living environment, cooperative Needs: safety and stabilization, medication adjustment, additional coping skills, increased outpatient services Suicide Risk Level Suicide Risk Level: Moderate (q15 min suicide checks) (denies SI but with increased hallucinations and delusions which are negatively impacting his mood and are distressing) Suicide Risk Level Comments: Risk Factors Assessment Male: Yes : Yes Do You Have Access To A Gun?: No Health Problems: Yes Mental Health Diagnoses: Yes Substance Use Disorders: No Previous Attempt: No Family History of Suicide: No Previous Psychiatric Hospitalization: Yes Hopelessness: No Protective Factors Assessment Episcopal Beliefs: Yes Good Rapport with Provider: Yes Interval History Identifying Information REBA KELLY is a 69-year-old man who currently lives [facility], has a history of schizophrenia, recent subdural hematoma, HTN, Type II diabetes, HLD, BPH and was admitted on 09/04/24 14:12 on a 303 involuntary commitment for psychosis and disorganization. Chief Complaint "Bless you, love you all". Review of Systems Sleep Information Total Hours of Sleep: 4.5 Meal Information Percent Meal Consumed - Breakfast: 100 Percent Meal Consumed - Lunch: 100 Percent Meal Consumed - Dinner: 75 Subjective Subjective Patient was seen & assessed and interval progress reviewed with nursing and social work. Multiple incontinence episodes. Posturing briefly at male RN last evening. Urinated on his night stand. Laid down in the hallway last night. Hardly slept. Asked RN and staff to be his girlfriends and boyfriends. Tried to put his dirty sock in his mouth. Today references yazdanism beliefs including blessing staff. Comments on provider being attractive and expresses his love. States Braulio continues to to rture him and tells him "I'm a call daddy and I had sex with the devil and I'm going to hell". Reports seeing Jack who works at his personal skilled nursing this morning (he was not on the unit). Continues to reference Coy his guardian marisol who he sees in the room. He denies any medication side effects. Physical Exam Psychiatric Orientation: alert, oriented to place, oriented to time and cooperative Apperance: appropriately dressed and + disheveled Eye Contact: good eye contact Motor Behavior: no abnormal motor movements Speech: + abnormal rate/rhythm/volume of speech (soft, ,mumbled ) Affect: + flat affect Mood: + anxious mood Thought Process: + tangential thought process and + looseness of associations Thought Content: + paranoid and + delusions Suicidal Thoughts: denies suicidal thoughts, denies suicidal plan and denies suicidal intent Homicidal Thoughts: denies homicidal thoughts Hallucinations: + auditory hallucinations and + visual hallucinations Cognition: recent memory grossly intact, remote memory grossly intact, attention grossly intact and language grossly intact Insight: + poor insight Judgment: + limited judgement Vital Signs (Past 24 Hours) Last Vital Signs Temp 36.7 C 09/09/24 06:20 Pulse 70 09/09/24 06:23 Resp 14 09/09/24 06:20 BP 122/76 09/09/24 06:23 Pulse Ox 98 09/09/24 06:20 O2 Del Method Room Air 09/09/24 06:20 Results & Data ([facility]) Laboratory Results Laboratory Results - last 24 hr 09/09/24 08:52 POC Glucose 101 H Current Inpatient Medications Current Inpatient Medications: Current Inpatient Medications Acetaminophen (Acetaminophen 325 Mg Tab) 650 mg PO Q4H PRN PRN Reason: Headache or Minor Fever Stop: 10/04/24 14:11 Al Hydrox/Mg Hydrox/Simethicone (Aluminum/Magnesium Susp 30 Ml Udc) 30 ml PO Q4H PRN PRN Reason: GI Upset Stop: 10/04/24 14:11 Atorvastatin Calcium (Atorvastatin 40 Mg Tab) 40 mg PO HS [facility] Stop: 10/04/24 21:59 Last Admin: 09/08/24 21:41 Dose: 40 mg Bismuth Subsalicylate (Bismuth Subsalicylate 262 Mg Chew) 2 tab PO Q30M PRN PRN Reason: Loose Stool/Diarrhea Stop: 10/04/24 14:11 Clozapine (Clozapine 25 Mg Tab) 250 mg PO HS [facility] Stop: 10/07/24 21:59 Last Admin: 09/08/24 21:36 Dose: 250 mg Cyanocobalamin (Cyanocobalamin (B-12) 100 Mcg Tablet) 100 mcg PO QAM [facility] Stop: 10/05/24 08:59 Last Admin: 09/09/24 08:11 Dose: 100 mcg Divalproex Sodium (Divalproex Extended Release 500 Mg Tab) 500 mg PO HS [facility] Stop: 10/06/24 21:59 Last Admin: 09/08/24 21:41 Dose: 500 mg Docusate Sodium (Docusate Sodium 100 Mg Cap) 100 mg PO BID [facility] Stop: 10/07/24 20:59 Last Admin: 09/09/24 08:12 Dose: 100 mg Haloperidol (Haloperidol 0.5 Mg Tab) 2.5 mg PO HS [facility] Stop: 10/08/24 21:59 Last Admin: 09/08/24 21:42 Dose: 2.5 mg Haloperidol (Haloperidol 5 Mg Tab) 5 mg PO DAILY PRN PRN Reason: psychosis Stop: 10/08/24 15:56 Haloperidol Lactate (Haloperidol Lactate 5 Mg/Ml 1 Ml Vial) 5 mg IM BID PRN PRN Reason: agitation Stop: 10/04/24 15:34 Hydroxyzine HCl (Hydroxyzine Hcl 25 Mg Tab) 50 mg PO HSZ PRN PRN Reason: Insomnia Stop: 10/04/24 14:11 Last Admin: 09/09/24 00:25 Dose: 50 mg Hydroxyzine HCl (Hydroxyzine Hcl 25 Mg Tab) 25 mg PO Q4H PRN PRN Reason: Anxiety Stop: 10/04/24 14:11 Ipratropium [place] (Ipratropium [place] Nasal [place] 0.06% 15ml) 2 sprays STEFANIE TID [facility] Stop: 10/06/24 20:59 Last Admin: 09/09/24 08:12 Dose: 2 sprays Levothyroxine Sodium (Levothyroxine Sodium 25 Mcg Tablet) 25 mcg PO DAILYBB [facility] Stop: 10/05/24 07:59 Last Admin: 09/09/24 08:10 Dose: 25 mcg Lisinopril (Lisinopril 20 Mg Tab) 20 mg PO DAILY [facility] Stop: 10/05/24 08:59 Last Admin: 09/09/24 08:12 Dose: 20 mg Lorazepam (Lorazepam 2 Mg/1 Ml Vial) 1 mg IM BID PRN PRN Reason: Agitation Stop: 10/04/24 15:34 Lorazepam (Lorazepam 1 Mg Tab) 1 mg PO DAILY PRN PRN Reason: restlessness Stop: 10/06/24 02:07 Last Admin: 09/06/24 02:20 Dose: 1 mg Lorazepam (Lorazepam 1 Mg Tab) 1 mg PO HS [facility] Stop: 10/06/24 21:59 Last Admin: 09/08/24 21:45 Dose: 1 mg Magnesium Hydroxide (Magnesium Hydroxide Susp 30 Ml Udc) 30 ml PO DAILY PRN PRN Reason: Constipation Stop: 10/04/24 14:11 Meloxicam (Meloxicam 7.5 Mg Tab) 15 mg PO DAILY [facility] Stop: 10/05/24 08:59 Last Admin: 09/09/24 08:13 Dose: 15 mg Metformin HCl (Metformin Hcl 500 Mg Tab) 1,000 mg PO BID17 [facility] Stop: 10/04/24 16:59 Last Admin: 09/09/24 08:13 Dose: 1,000 mg Miscellaneous (Remove Nicoderm Patch) 1 each N/A 2100 [facility] Stop: 10/05/24 20:59 Last Admin: 09/09/24 00:27 Dose: 1 each Multivitamins (Multivitamin Tab) 1 tab PO DAILY [facility] Stop: 10/05/24 08:59 Last Admin: 09/09/24 08:17 Dose: 1 tab Nicotine (Nicotine 21 Mg/24 Hr Tdsy) 1 patch TD QAM [facility] Stop: 10/05/24 09:44 Last Admin: 09/09/24 08:17 Dose: Not Given Nicotine Polacrilex (Nicotine Polacrilex 2 Mg Gum) 1 piece MT Q2H PRN PRN Reason: smoking cessation Stop: 10/04/24 15:22 Last Admin: 09/07/24 18:00 Dose: 1 piece Paroxetine HCl (Paroxetine Hcl 10 Mg Tab) 30 mg PO DAILY [facility] Stop: 10/05/24 08:59 Last Admin: 09/09/24 08:14 Dose: 30 mg Polyethylene Glycol (Polyethylene (Miralax) 17 Gm Pack) 17 gm PO DAILY [facility] Stop: 10/05/24 08:59 Last Admin: 09/09/24 08:14 Dose: 17 gm Sennosides (Senna 8.6 Mg Tab) 8.6 mg PO Q2D PRN PRN Reason: constipation Stop: 10/04/24 15:30 Sodium Chloride (Sodium Chloride 0.65% Na Soln 45 Ml ([place])) 1 - 2 sprays NA PRN PRN PRN Reason: Nasal Dryness/Congestion Stop: 10/04/24 14:11 Topiramate (Topiramate 25 Mg Tab) 25 mg PO HS [facility] Stop: 10/06/24 21:59 Last Admin: 09/08/24 21:43 Dose: 25 mg Vitamin D (Cholecalciferol 25 Mcg (1000 Units) Tab) 50 mcg PO QAM [facility] Stop: 10/05/24 08:59 Last Admin: 09/09/24 08:11 Dose: 50 mcg Mental Health & Subst Abuse Tx Psychiatrist Name of Psychiatrist: Haley PATEL Psychiatrist's Cut Off Sawyer Name of Cut Off Sawyer: Linda Morris Post Discharge Appointments Primary Care Physician Name Of Family Doctor/PCP: Dr. Deonte Martinez (1) Psychosis Psychosis type: schizophrenia Schizophrenia type: paranoid schizophrenia Qualified Code(s): F20.0 - Paranoid schizophrenia
[2024-09-09] MEDS: IPRATROPIUM BROMIDE NASAL SPRAY 0.06% 15ML SL SCH (13:56)
--- NOTE | 2024-09-10 08:46 | Psychiatric Progress Note ---
Date of Service September 10, 2024 Impression / Recommendations Impression REBA KELLY is a 69-year-old man who currently lives [facility], has a history of schizophrenia, recent subdural hematoma, HTN, Type II diabetes, HLD, BPH and was admitted on 09/04/24 14:12 on a 303 involuntary commitment for psychosis and disorganization. Diagnostically consistent with acute exacerbation of schizophrenia vs post TBI/subdural psychosis given recent fall and hematoma in July 2024. Medical team felt delirium unlikely and his confusion has lessened. Ongoing loosening associations, hyperreligious and paranoia delusions, disorganized behaviors at times, and auditory and visual hallucinations. He had been stable on clozapine for many years but seems to have decompensated in the setting of his recent fall. Given symptoms of hyperreligious beliefs, initial poor sleep and concern for psychomotor activation (suspected cause of his elevated CK on medical admission) possibility of schizoaffective disorder but would be atypical for first episode of dolores to show up at his age. rather suspect that recent bleed may have contributed to some increased disinhibition leading to odd behaviors, worsened psychosis and hyperreligious delusions. No signs to suggest seizure at this time nor while on the medical service but his risk for this is higher given recent subdural hematoma. Brain MRI showed no abnormal brain enhancements, some mild chronic small vessel ischemic change which could partially explain why his brain may now be more vulnerable to psychosis if a mild cognitive impairment process is also at play. UA normal, no reason to suspect UTI at this time. A: Ongoing psychosis with delusions, hypersexual statements and disorganized behaviors. Slept a little bit more with higher dose of clozapine but still with a very difficult night. Slight improvement today with using bedside urinal and fewer episodes of incontinence since introducing this. Repeat UA done given multiple episodes of worsening incontinence which was negative for any signs of infection. Clozapine level still pending. Continue with clozapine titration. MNPR due to recent disrobing, psychosis, disorganization Overall, I spent a total of 50 minutes on this case including meeting with the patient, reviewing the chart, nursing report, multidisciplinary team meeting, orders, and documentation. (1) Psychosis: (2) Schizophrenia: (3) Hypersexuality: (4) Auditory hallucinations: (5) Hyperlipidemia: (6) Type 2 diabetes mellitus: (7) Hypertension: Plan 09/10/2024: -Increase clozapine to 350mg HS 09/09/2024: -Increase haldol back to 2.5mg TID -Increase ipratropium bromide 0.06% under the tongue to 3 sprays TID for sialorrhea -Increase clozapine to 300mg HS 09/08/2024: -Decrease haldol to 2.5mg HS -Discontinue topiramate 09/07/2024: -Decrease haldol to 2.5mg BID -Increase clozapine to 250mg HS 09/06/2024: -Increase Depakote ER to 500mg -Increase ipratropium bromide 0.06% under the tongue to 2 sprays TID -taper Topiramate to 25mg HS to reduce polypharmacy burden 09/05/2024: The patient was admitted to the [facility] ([facility] mental [facility] unit) on q15 min checks (behavioral with suicide precautions) for safety. The patient will participate in group, recreational, and milieu therapies and will be offered additional individual and family sessions as clinically appropriate. -Continue psychiatric medications: * Clozapine 200mg HS (consider further dose titration) * Topiramate 25mg BID * Haldol 2.5mg TID * Ativan 1mg HS (goal to taper as sleep improves and stabilizes) -Adjust: * Paxil from 30mg BID to 30mg daily -Start: * Depakote ER 250mg HS -Clozapine level, fasting lipid panel, HBA1c tomorrow AM -Repeat EKG given his age and now on multiple medications that can impact QTc interval Inventory Assets Strengths: supportive living environment, cooperative Needs: safety and stabilization, medication adjustment, additional coping skills, increased outpatient services Suicide Risk Level Suicide Risk Level: Moderate (q15 min suicide checks) (denies SI but with increased hallucinations and delusions which are negatively impacting his mood and are distressing) Suicide Risk Level Comments: Risk Factors Assessment Male: Yes : Yes Do You Have Access To A Gun?: No Health Problems: Yes Mental Health Diagnoses: Yes Substance Use Disorders: No Previous Attempt: No Family History of Suicide: No Previous Psychiatric Hospitalization: Yes Hopelessness: No Protective Factors Assessment Sikh Beliefs: Yes Good Rapport with Provider: Yes Interval History Identifying Information REBA KELLY is a 69-year-old man who currently lives [facility], has a history of schizophrenia, recent subdural hematoma, HTN, Type II diabetes, HLD, BPH and was admitted on 09/04/24 14:12 on a 303 involuntary commitment for psychosis and disorganization. Chief Complaint "You're beautiful". Review of Systems Sleep Information Total Hours of Sleep: 6 Meal Information Percent Meal Consumed - Breakfast: 100 Percent Meal Consumed - Lunch: 100 Percent Meal Consumed - Dinner: 100 Subjective Subjective Patient was seen & assessed and interval progress reviewed with treatment team. Lying on the floor, nude, and threatening to scratch staff's eyes out. Last evening eating others' food, pacing around between bites. And then incontinence on the floor of the bathroom, and then again in his bed and disrobed over night. This morning came out of his room only wearing a shirt and no pants. Two episodes of urinary incontinence. Making statements about ICE last evening. Excused from groups. Today asking nurses about a variety of topics including: "Can I join the [employer]?", "Jose Cruzlinh desires you he does", and frequent requests to bless individuals. Later comes to the nurses station and asks "do you want to fight me?", asked about this he confirms he asked this due to auditory hallucination suggesting this was the case. With me denies medication side effects but frequently complements my appearance and eye color and struggles to move away from this topic despite redirection. Slept poorly but tells me he didn't have any nightmares. Later making similar comments to other female RNs. Seemed to appropriately use the bedside urinal today. Physical Exam Psychiatric Orientation: alert, oriented to place, oriented to time and cooperative Apperance: appropriately dressed and + disheveled Eye Contact: good eye contact Motor Behavior: no abnormal motor movements Speech: + abnormal rate/rhythm/volume of speech (soft, mumbled ) Affect: + flat affect Mood: + anxious mood Thought Process: + tangential thought process and + looseness of associations Thought Content: + paranoid and + delusions Suicidal Thoughts: denies suicidal thoughts, denies suicidal plan and denies suicidal intent Homicidal Thoughts: denies homicidal thoughts Hallucinations: + auditory hallucinations and + visual hallucinations Cognition: recent memory grossly intact, remote memory grossly intact, attention grossly intact and language grossly intact Insight: + poor insight Judgment: + limited judgement Vital Signs (Past 24 Hours) Last Vital Signs Temp 37.1 C 09/10/24 06:19 Pulse 81 09/10/24 06:19 Resp 16 09/10/24 06:19 BP 164/84 H 09/10/24 06:19 Pulse Ox 98 09/09/24 06:20 O2 Del Method Room Air 09/09/24 06:20 Results & Data ([facility]) Laboratory Results Laboratory Results - last 24 hr 09/09/24 09/10/24 08:52 08:17 POC Glucose 101 H 104 H Current Inpatient Medications Current Inpatient Medications: Current Inpatient Medications Acetaminophen (Acetaminophen 325 Mg Tab) 650 mg PO Q4H PRN PRN Reason: Headache or Minor Fever Stop: 10/04/24 14:11 Al Hydrox/Mg Hydrox/Simethicone (Aluminum/Magnesium Susp 30 Ml Udc) 30 ml PO Q4H PRN PRN Reason: GI Upset Stop: 10/04/24 14:11 Atorvastatin Calcium (Atorvastatin 40 Mg Tab) 40 mg PO HS BEATRICE Stop: 10/04/24 21:59 Last Admin: 09/09/24 20:21 Dose: 40 mg Bismuth Subsalicylate (Bismuth Subsalicylate 262 Mg Chew) 2 tab PO Q30M PRN PRN Reason: Loose Stool/Diarrhea Stop: 10/04/24 14:11 Clozapine (Clozapine 100 Mg Tab) 300 mg PO HS BEATRICE Stop: 10/09/24 21:59 Last Admin: 09/09/24 20:21 Dose: 300 mg Cyanocobalamin (Cyanocobalamin (B-12) 100 Mcg Tablet) 100 mcg PO QAM BEATRICE Stop: 10/05/24 08:59 Last Admin: 09/10/24 08:33 Dose: 100 mcg Divalproex Sodium (Divalproex Extended Release 500 Mg Tab) 500 mg PO HS BEATRICE Stop: 10/06/24 21:59 Last Admin: 09/09/24 20:22 Dose: 500 mg Docusate Sodium (Docusate Sodium 100 Mg Cap) 100 mg PO BID BEATRICE Stop: 10/07/24 20:59 Last Admin: 09/10/24 08:33 Dose: 100 mg Haloperidol (Haloperidol 5 Mg Tab) 5 mg PO DAILY PRN PRN Reason: psychosis Stop: 10/08/24 15:56 Haloperidol (Haloperidol 5 Mg Tab) 2.5 mg PO TID BEATRICE Stop: 10/09/24 09:14 Last Admin: 09/10/24 08:34 Dose: 2.5 mg Haloperidol Lactate (Haloperidol Lactate 5 Mg/Ml 1 Ml Vial) 5 mg IM BID PRN PRN Reason: agitation Stop: 10/04/24 15:34 Hydroxyzine HCl (Hydroxyzine Hcl 25 Mg Tab) 50 mg PO HSZ PRN PRN Reason: Insomnia Stop: 10/04/24 14:11 Last Admin: 09/09/24 00:25 Dose: 50 mg Hydroxyzine HCl (Hydroxyzine Hcl 25 Mg Tab) 25 mg PO Q4H PRN PRN Reason: Anxiety Stop: 10/04/24 14:11 Ipratropium [place] (Ipratropium [place] Nasal [place] 0.06% 15ml) 3 sprays SL TID BEATRICE Stop: 10/09/24 13:59 Last Admin: 09/10/24 08:34 Dose: 3 sprays Levothyroxine Sodium (Levothyroxine Sodium 25 Mcg Tablet) 25 mcg PO DAILYBB BEATRICE Stop: 10/05/24 07:59 Last Admin: 09/10/24 08:33 Dose: 25 mcg Lisinopril (Lisinopril 20 Mg Tab) 20 mg PO DAILY BEATRICE Stop: 10/05/24 08:59 Last Admin: 09/10/24 08:35 Dose: 20 mg Lorazepam (Lorazepam 2 Mg/1 Ml Vial) 1 mg IM BID PRN PRN Reason: Agitation Stop: 10/04/24 15:34 Lorazepam (Lorazepam 1 Mg Tab) 1 mg PO DAILY PRN PRN Reason: restlessness Stop: 10/06/24 02:07 Last Admin: 09/06/24 02:20 Dose: 1 mg Lorazepam (Lorazepam 1 Mg Tab) 1 mg PO HS BEATRICE Stop: 10/06/24 21:59 Last Admin: 09/09/24 20:22 Dose: 1 mg Magnesium Hydroxide (Magnesium Hydroxide Susp 30 Ml Udc) 30 ml PO DAILY PRN PRN Reason: Constipation Stop: 10/04/24 14:11 Meloxicam (Meloxicam 7.5 Mg Tab) 15 mg PO DAILY BEATRICE Stop: 10/05/24 08:59 Last Admin: 09/10/24 08:35 Dose: 15 mg Metformin HCl (Metformin Hcl 500 Mg Tab) 1,000 mg PO BID17 [facility] Stop: 10/04/24 16:59 Last Admin: 09/10/24 08:35 Dose: 1,000 mg Miscellaneous (Remove Nicoderm Patch) 1 each N/A 2100 BEATRICE Stop: 10/05/24 20:59 Last Admin: 09/09/24 20:27 Dose: 1 each Multivitamins (Multivitamin Tab) 1 tab PO DAILY BEATRICE Stop: 10/05/24 08:59 Last Admin: 09/10/24 08:36 Dose: 1 tab Nicotine (Nicotine 21 Mg/24 Hr Tdsy) 1 patch TD QAM BEATRICE Stop: 10/05/24 09:44 Last Admin: 09/10/24 08:36 Dose: Not Given Nicotine Polacrilex (Nicotine Polacrilex 2 Mg Gum) 1 piece MT Q2H PRN PRN Reason: smoking cessation Stop: 10/04/24 15:22 Last Admin: 09/09/24 20:22 Dose: 1 piece Paroxetine HCl (Paroxetine Hcl 10 Mg Tab) 30 mg PO DAILY BEATRICE Stop: 10/05/24 08:59 Last Admin: 09/10/24 08:36 Dose: 30 mg Polyethylene Glycol (Polyethylene (Miralax) 17 Gm Pack) 17 gm PO DAILY BEATRICE Stop: 10/05/24 08:59 Last Admin: 09/10/24 08:37 Dose: 17 gm Sennosides (Senna 8.6 Mg Tab) 8.6 mg PO Q2D PRN PRN Reason: constipation Stop: 10/04/24 15:30 Sodium Chloride (Sodium Chloride 0.65% Na Soln 45 Ml ([place])) 1 - 2 sprays NA PRN PRN PRN Reason: Nasal Dryness/Congestion Stop: 10/04/24 14:11 Topiramate (Topiramate 25 Mg Tab) 25 mg PO HS BEATRICE Stop: 10/06/24 21:59 Last Admin: 09/09/24 20:19 Dose: 25 mg Vitamin D (Cholecalciferol 25 Mcg (1000 Units) Tab) 50 mcg PO QAM BEATRICE Stop: 10/05/24 08:59 Last Admin: 09/10/24 08:33 Dose: 50 mcg Mental Health & Subst Abuse Tx Psychiatrist Name of Psychiatrist: Haley PATEL Psychiatrist's [employer]er Name of Propellant Charge Zone Assembler: Linda Morris Phone Number for [employer] As[employer]er: [phone] Post Discharge Appointments Primary Care Physician Name Of Family Doctor/PCP: Dr. Deonte Martinez Primary Care Date of Future Appointment with PCP: 09/27/24 Time of Appointment with PCP: 2:20 PM Provider Appointment Comment: Arrive @ 205pm, isaac Flores. Check in via kiosk. Bring meds. (1) Psychosis Psychosis type: schizophrenia Schizophrenia type: paranoid schizophrenia Qualified Code(s): F20.0 - Paranoid schizophrenia
[2024-09-10 11:30] LABS: Appearance Urine Clear (Clear); Glucose Urine UA Negative (Negative)
--- NOTE | 2024-09-11 10:40 | Psychiatric Progress Note ---
Date of Service September 11, 2024 Impression / Recommendations Impression REBA KELLY is a 69-year-old man who currently lives [facility], has a history of schizophrenia, recent subdural hematoma, HTN, Type II diabetes, HLD, BPH and was admitted on 09/04/24 14:12 on a 303 involuntary commitment for psychosis and disorganization. Diagnostically consistent with acute exacerbation of schizophrenia vs post TBI/subdural psychosis given recent fall and hematoma in July 2024. Medical team felt delirium unlikely and his confusion has lessened. Ongoing loosening associations, hyperreligious and paranoia delusions, disorganized behaviors at times, and auditory and visual hallucinations. He had been stable on clozapine for many years but seems to have decompensated in the setting of his recent fall. Given symptoms of hyperreligious beliefs, initial poor sleep and concern for psychomotor activation (suspected cause of his elevated CK on medical admission) possibility of schizoaffective disorder but would be atypical for first episode of dolores to show up at his age. rather suspect that recent bleed may have contributed to some increased disinhibition leading to odd behaviors, worsened psychosis and hyperreligious delusions. No signs to suggest seizure at this time nor while on the medical service but his risk for this is higher given recent subdural hematoma. Brain MRI showed no abnormal brain enhancements, some mild chronic small vessel ischemic change which could partially explain why his brain may now be more vulnerable to psychosis if a mild cognitive impairment process is also at play. UA normal, no reason to suspect UTI at this time. A: Ongoing psychosis with delusions, hypersexual statements, and disorganized behaviors. Increased BP this morning but asymptomatic, will continue to monitor. Still not sleeping much. Clozapine level returned at low end of therapeutic range so will continue with titration. Ongoing sialorrhea despite ipratropium, if doesn't improve may need to consider alternative like atropine. Will continue with clozapine titration. No evidence that valproic acid is contributing to worsening sedation or clozapine side effect burden, could impact clozapine metabolism and may be further reason for need for titration. MNPR due to recent disrobing, psychosis, disorganization Overall, I spent a total of 40 minutes on this case including meeting with the patient, reviewing the chart, nursing report, multidisciplinary team meeting, orders, and documentation. (1) Psychosis: (2) Schizophrenia: (3) Hypersexuality: (4) Auditory hallucinations: (5) Hyperlipidemia: (6) Type 2 diabetes mellitus: (7) Hypertension: Plan 09/11/2024: -Increase clozapine to 400mg HS 09/10/2024: -Increase clozapine to 350mg HS 09/09/2024: -Increase haldol back to 2.5mg TID -Increase ipratropium bromide 0.06% under the tongue to 3 sprays TID for sialorrhea -Increase clozapine to 300mg HS 09/08/2024: -Decrease haldol to 2.5mg HS -Discontinue topiramate 09/07/2024: -Decrease haldol to 2.5mg BID -Increase clozapine to 250mg HS 09/06/2024: -Increase Depakote ER to 500mg -Increase ipratropium bromide 0.06% under the tongue to 2 sprays TID -taper Topiramate to 25mg HS to reduce polypharmacy burden 09/05/2024: The patient was admitted to the [facility] ([facility]) on q15 min checks (behavioral with suicide precautions) for safety. The patient will participate in group, recreational, and milieu therapies and will be offered additional individual and family sessions as clinically appropriate. -Continue psychiatric medications: * Clozapine 200mg HS (consider further dose titration) * Topiramate 25mg BID * Haldol 2.5mg TID * Ativan 1mg HS (goal to taper as sleep improves and stabilizes) -Adjust: * Paxil from 30mg BID to 30mg daily -Start: * Depakote ER 250mg HS -Clozapine level, fasting lipid panel, HBA1c tomorrow AM -Repeat EKG given his age and now on multiple medications that can impact QTc interval Inventory Assets Strengths: supportive living environment, cooperative Needs: safety and stabilization, medication adjustment, additional coping skills, increased outpatient services Suicide Risk Level Suicide Risk Level: Moderate (q15 min suicide checks) (denies SI but with increased hallucinations and delusions which are negatively impacting his mood and are distressing) Suicide Risk Level Comments: Risk Factors Assessment Male: Yes : Yes Do You Have Access To A Gun?: No Health Problems: Yes Mental Health Diagnoses: Yes Substance Use Disorders: No Previous Attempt: No Family History of Suicide: No Previous Psychiatric Hospitalization: Yes Hopelessness: No Protective Factors Assessment Buddhist Beliefs: Yes Good Rapport with Provider: Yes Interval History Identifying Information REBA KELYL is a 69-year-old man who currently lives [facility], has a history of schizophrenia, recent subdural hematoma, HTN, Type II diabetes, HLD, BPH and was admitted on 09/04/24 14:12 on a 303 involuntary commitment for psychosis and disorganization. Chief Complaint "I'd like to bless you". Review of Systems Sleep Information Total Hours of Sleep: 5.5 Meal Information Percent Meal Consumed - Breakfast: 80 Percent Meal Consumed - Lunch: 75 Percent Meal Consumed - Dinner: 25 Subjective Subjective Patient was seen & assessed and interval progress reviewed with nursing and social work. Incontinence episodes last evening, swinging brief around. Another episode of incontinence overnight. Disrobing at night.Did appropriately use urinal today and emptied into toilet with prompting. Eating well. Today reports he feels "fine thank you". Asks me to call him edu. Makes various odd written statements and brings these to RNs. Tells me he needs to do something to avoid getting people killed. Ongoing confucianist/Satan delusions. Episode of urinary incontinence this afternoon. Denies any symptoms associated with his elevated blood pressure. Physical Exam Psychiatric Orientation: alert, oriented to place, oriented to time and cooperative Apperance: appropriately dressed and + disheveled Eye Contact: good eye contact Motor Behavior: no abnormal motor movements Speech: + abnormal rate/rhythm/volume of speech (soft, mumbled ) Affect: + flat affect Mood: + anxious mood Thought Process: + tangential thought process and + looseness of associations Thought Content: + paranoid and + delusions Suicidal Thoughts: denies suicidal thoughts, denies suicidal plan and denies suicidal intent Homicidal Thoughts: denies homicidal thoughts Hallucinations: + auditory hallucinations and + visual hallucinations Cognition: recent memory grossly intact, remote memory grossly intact, attention grossly intact and language grossly intact Insight: + poor insight Judgment: + limited judgement Vital Signs (Past 24 Hours) Last Vital Signs Temp 36.6 C 09/11/24 06:29 Pulse 76 09/11/24 06:30 Resp 16 09/11/24 06:29 BP 176/98 H 09/11/24 06:30 Pulse Ox 98 09/09/24 06:20 O2 Del Method Room Air 09/09/24 06:20 Results & Data ([facility]) Laboratory Results Laboratory Results - last 24 hr 09/07/24 09/10/24 07:31 11:15 Urine Color Yellow Urine Appearance Clear Urine pH 7.0 Ur Specific [place] 1.018 Urine Protein Negative Urine Glucose (UA) Negative Urine Ketones Trace H Urine Blood Negative Urine Nitrite Negative Urine Bilirubin Negative Urine Urobilinogen Negative Ur Leukocyte Esterase Negative Clozapine 296 Norclozapine 146 Current Inpatient Medications Current Inpatient Medications: Current Inpatient Medications Acetaminophen (Acetaminophen 325 Mg Tab) 650 mg PO Q4H PRN PRN Reason: Headache or Minor Fever Stop: 10/04/24 14:11 Al Hydrox/Mg Hydrox/Simethicone (Aluminum/Magnesium Susp 30 Ml Udc) 30 ml PO Q4H PRN PRN Reason: GI Upset Stop: 10/04/24 14:11 Atorvastatin Calcium (Atorvastatin 40 Mg Tab) 40 mg PO HS [facility] Stop: 10/04/24 21:59 Last Admin: 09/10/24 21:12 Dose: 40 mg Bismuth Subsalicylate (Bismuth Subsalicylate 262 Mg Chew) 2 tab PO Q30M PRN PRN Reason: Loose Stool/Diarrhea Stop: 10/04/24 14:11 Clozapine (Clozapine 100 Mg Tab) 350 mg PO HS BEATRICE Stop: 10/10/24 21:59 Last Admin: 09/10/24 21:16 Dose: 350 mg Cyanocobalamin (Cyanocobalamin (B-12) 100 Mcg Tablet) 100 mcg PO QAM BEATRICE Stop: 10/05/24 08:59 Last Admin: 09/11/24 10:18 Dose: 100 mcg Divalproex Sodium (Divalproex Extended Release 500 Mg Tab) 500 mg PO HS BEATRICE Stop: 10/06/24 21:59 Last Admin: 09/10/24 21:12 Dose: 500 mg Docusate Sodium (Docusate Sodium 100 Mg Cap) 100 mg PO BID BEATRICE Stop: 10/07/24 20:59 Last Admin: 09/11/24 10:18 Dose: 100 mg Haloperidol (Haloperidol 5 Mg Tab) 5 mg PO DAILY PRN PRN Reason: psychosis Stop: 10/08/24 15:56 Last Admin: 09/10/24 11:11 Dose: 5 mg Haloperidol (Haloperidol 5 Mg Tab) 2.5 mg PO TID BEATRICE Stop: 10/09/24 09:14 Last Admin: 09/11/24 10:19 Dose: 2.5 mg Haloperidol Lactate (Haloperidol Lactate 5 Mg/Ml 1 Ml Vial) 5 mg IM BID PRN PRN Reason: agitation Stop: 10/04/24 15:34 Hydroxyzine HCl (Hydroxyzine Hcl 25 Mg Tab) 50 mg PO HSZ PRN PRN Reason: Insomnia Stop: 10/04/24 14:11 Last Admin: 09/09/24 00:25 Dose: 50 mg Hydroxyzine HCl (Hydroxyzine Hcl 25 Mg Tab) 25 mg PO Q4H PRN PRN Reason: Anxiety Stop: 10/04/24 14:11 Ipratropium [place] (Ipratropium [place] Nasal [place] 0.06% 15ml) 3 sprays SL TID BEATRICE Stop: 10/09/24 13:59 Last Admin: 09/11/24 10:20 Dose: 3 sprays Levothyroxine Sodium (Levothyroxine Sodium 25 Mcg Tablet) 25 mcg PO DAILYBB BEATRICE Stop: 10/05/24 07:59 Last Admin: 09/11/24 10:18 Dose: 25 mcg Lisinopril (Lisinopril 20 Mg Tab) 20 mg PO DAILY BEATRICE Stop: 10/05/24 08:59 Last Admin: 09/11/24 10:20 Dose: 20 mg Lorazepam (Lorazepam 2 Mg/1 Ml Vial) 1 mg IM BID PRN PRN Reason: Agitation Stop: 10/04/24 15:34 Lorazepam (Lorazepam 1 Mg Tab) 1 mg PO DAILY PRN PRN Reason: restlessness Stop: 10/06/24 02:07 Last Admin: 09/06/24 02:20 Dose: 1 mg Lorazepam (Lorazepam 1 Mg Tab) 1 mg PO HS BEATRICE Stop: 10/06/24 21:59 Last Admin: 09/10/24 21:14 Dose: 1 mg Magnesium Hydroxide (Magnesium Hydroxide Susp 30 Ml Udc) 30 ml PO DAILY PRN PRN Reason: Constipation Stop: 10/04/24 14:11 Meloxicam (Meloxicam 7.5 Mg Tab) 15 mg PO DAILY BEATRICE Stop: 10/05/24 08:59 Last Admin: 09/11/24 10:21 Dose: 15 mg Metformin HCl (Metformin Hcl 500 Mg Tab) 1,000 mg PO BID17 BEATRICE Stop: 10/04/24 16:59 Last Admin: 09/11/24 10:17 Dose: 1,000 mg Miscellaneous (Remove Nicoderm Patch) 1 each N/A 2100 BEATRICE Stop: 10/05/24 20:59 Last Admin: 09/10/24 21:25 Dose: 1 each Multivitamins (Multivitamin Tab) 1 tab PO DAILY BEATRICE Stop: 10/05/24 08:59 Last Admin: 09/11/24 10:20 Dose: 1 tab Nicotine (Nicotine 21 Mg/24 Hr Tdsy) 1 patch TD QAM BEATRICE Stop: 10/05/24 09:44 Last Admin: 09/11/24 10:19 Dose: 1 patch Nicotine Polacrilex (Nicotine Polacrilex 2 Mg Gum) 1 piece MT Q2H PRN PRN Reason: smoking cessation Stop: 10/04/24 15:22 Last Admin: 09/10/24 10:10 Dose: 1 piece Paroxetine HCl (Paroxetine Hcl 10 Mg Tab) 30 mg PO DAILY BEATRICE Stop: 10/05/24 08:59 Last Admin: 09/11/24 10:21 Dose: 30 mg Polyethylene Glycol (Polyethylene (Miralax) 17 Gm Pack) 17 gm PO DAILY BEATRICE Stop: 10/05/24 08:59 Last Admin: 09/11/24 10:12 Dose: 17 gm Sennosides (Senna 8.6 Mg Tab) 8.6 mg PO Q2D PRN PRN Reason: constipation Stop: 10/04/24 15:30 Sodium Chloride (Sodium Chloride 0.65% Na Soln 45 Ml ([place])) 1 - 2 sprays NA PRN PRN PRN Reason: Nasal Dryness/Congestion Stop: 10/04/24 14:11 Topiramate (Topiramate 25 Mg Tab) 25 mg PO HS BEATRICE Stop: 10/06/24 21:59 Last Admin: 09/10/24 21:14 Dose: 25 mg Vitamin D (Cholecalciferol 25 Mcg (1000 Units) Tab) 50 mcg PO QAM BEATRICE Stop: 10/05/24 08:59 Last Admin: 09/11/24 10:18 Dose: 50 mcg Mental Health & Subst Abuse Tx Psychiatrist Name of Psychiatrist: Haley PATEL Psychiatrist's Pipe Chipper Name of Pipe Chipper: Linda Morris Phone Number for Pipe Chipper: [phone] Post Discharge Appointments Primary Care Physician Name Of Family Doctor/PCP: Dr. Deonte Martinez Primary Care Date of Future Appointment with PCP: 09/27/24 Time of Appointment with PCP: 2:20 PM Provider Appointment Comment: Arrive @ 205pm, isaac Flores. Check in via [employer]. Bring meds. (1) Psychosis Psychosis type: schizophrenia Schizophrenia type: paranoid schizophrenia Qualified Code(s): F20.0 - Paranoid schizophrenia
[2024-09-12 08:06] LABS: Hematocrit (blood only) 36.3 % (42.0-52.0); Hemoglobin 12.1 g/dl (14.0-18.0); Immature Granulocytes # (auto) 0.02 K/uL (0.01-0.20); Immature Granulocytes % (auto) 0.3 %; Mean Corpuscular Hemoglobin 30.2 pg (25.0-34.0); Mean Corpuscular Volume 90.5 fL (80.0-100.0); Platelet Count 196 K/uL (130-400); RDW Standard Deviation 40.5 fL (36.4-46.3); Red Blood Count 4.01 M/uL (4.70-6.10); White Blood Count 7.20 K/ul (4.8-10.8)
[2024-09-12] MEDS: GLYCOPYRROLATE 1 MG TAB PO SCH (15:09)
--- NOTE | 2024-09-12 15:34 | Psychiatric Progress Note ---
Date of Service September 12, 2024 Impression / Recommendations Impression REBA KELLY is a 69-year-old man who currently lives [facility], has a history of schizophrenia, recent subdural hematoma, HTN, Type II diabetes, HLD, BPH and was admitted on 09/04/24 14:12 on a 303 involuntary commitment for psychosis and disorganization (expiring 09/23/24). Diagnostically consistent with acute exacerbation of schizophrenia vs post TBI/subdural psychosis given recent fall and hematoma in July 2024. Medical team felt delirium unlikely and his confusion has lessened. Ongoing loosening associations, hyperreligious and paranoia delusions, disorganized behaviors at times, and auditory and visual hallucinations. He had been stable on clozapine for many years but seems to have decompensated in the setting of his recent fall. Given symptoms of hyperreligious beliefs, initial poor sleep and concern for psychomotor activation (suspected cause of his elevated CK on medical admission) possibility of schizoaffective disorder but would be atypical for first episode of dolores to show up at his age. rather suspect that recent bleed may have contributed to some increased disinhibition leading to odd behaviors, worsened psychosis and hyperreligious delusions. No signs to suggest seizure at this time nor while on the medical service but his risk for this is higher given recent subdural hematoma. Brain MRI showed no abnormal brain enhancements, some mild chronic small vessel ischemic change which could partially explain why his brain may now be more vulnerable to psychosis if a mild cognitive impairment process is also at play. UA normal, no reason to suspect UTI at this time. A: Patient appears more oriented and organized than on admission. Intermittent confusion. Continues to be hyperreligious and hyper sexual at times. Concern for auditory hallucinations. Independent with ADLs. Concern for sialorrhea from clozapine. Plan to slightly decrease clozapine dose and start glycopyrrolate. Decrease Haldol to twice daily dosing. MNPR due to recent disrobing, psychosis, disorganization Overall, I spent a total of 45 minutes on this case including meeting with the patient, reviewing the chart, nursing report, multidisciplinary team meeting, orders, and documentation. (1) Psychosis: (2) Schizophrenia: (3) Hypersexuality: (4) Auditory hallucinations: (5) Hyperlipidemia: (6) Type 2 diabetes mellitus: (7) Hypertension: Plan 09/12/2024: Decrease clozapine to 350 mg at bedtime Start glycopyrrolate 1 mg twice daily Decrease haloperidol to 2.5 mg twice daily 09/11/2024: -Increase clozapine to 400mg HS 09/10/2024: -Increase clozapine to 350mg HS 09/09/2024: -Increase haldol back to 2.5mg TID -Increase ipratropium bromide 0.06% under the tongue to 3 sprays TID for sialorrhea -Increase clozapine to 300mg HS 09/08/2024: -Decrease haldol to 2.5mg HS -Discontinue topiramate 09/07/2024: -Decrease haldol to 2.5mg BID -Increase clozapine to 250mg HS 09/06/2024: -Increase Depakote ER to 500mg -Increase ipratropium bromide 0.06% under the tongue to 2 sprays TID -taper Topiramate to 25mg HS to reduce polypharmacy burden 09/05/2024: The patient was admitted to the [facility] on q15 min checks (behavioral with suicide precautions) for safety. The patient will participate in group, recreational, and milieu therapies and will be offered additional individual and family sessions as clinically appropriate. -Continue psychiatric medications: * Clozapine 200mg HS (consider further dose titration) * Topiramate 25mg BID * Haldol 2.5mg TID * Ativan 1mg HS (goal to taper as sleep improves and stabilizes) -Adjust: * Paxil from 30mg BID to 30mg daily -Start: * Depakote ER 250mg HS -Clozapine level, fasting lipid panel, HBA1c tomorrow AM -Repeat EKG given his age and now on multiple medications that can impact QTc interval Inventory Assets Strengths: supportive living environment, cooperative Needs: safety and stabilization, medication adjustment, additional coping skills, increased outpatient services Suicide Risk Level Suicide Risk Level: Moderate (q15 min suicide checks) (denies SI but with increased hallucinations and delusions which are negatively impacting his mood and are distressing) Suicide Risk Level Comments: Risk Factors Assessment Male: Yes : Yes Do You Have Access To A Gun?: No Health Problems: Yes Mental Health Diagnoses: Yes Substance Use Disorders: No Previous Attempt: No Family History of Suicide: No Previous Psychiatric Hospitalization: Yes Hopelessness: No Protective Factors Assessment Worship Beliefs: Yes Good Rapport with Provider: Yes Interval History Identifying Information REBA KELLY is a 69-year-old man who currently lives [facility], has a history of schizophrenia, recent subdural hematoma, HTN, Type II diabetes, HLD, BPH and was admitted on 09/04/24 14:12 on a 303 involuntary commitment for psychosis and disorganization. Chief Complaint Psychosis Review of Systems Sleep Information Total Hours of Sleep: 7.75 Meal Information Percent Meal Consumed - Breakfast: 100 Percent Meal Consumed - Lunch: 50 Percent Meal Consumed - Dinner: 50 Subjective Subjective Patient was seen & assessed and interval progress reviewed with treatment team nursing and social work Patient is alert and oriented to himself, hospital, year. Reports feeling safe. Overnight slept wel.. Endorses having periods of confusion and last occurred t his AM. Endorses auditory hallucinations however denies that they are "scary". We will give further details and says that he hears voices of "things". Unprovoked he refers to one of the staff members on the unit and says that they are insane. Denies feeling constipated. Complains of excess salivation. Putting a sock in his mouth due to the salivation concerns. Physical Exam Mental Examination Appearance: Disheveled Eye Contact: Maintains Eye Contact Motor Behavior: Slowed and Weakness Speech: Soft and Disorganized Mood: Calm Affect: Blunted Thought Process: Disorganized, Loose Associations and Slowed Thinking Thought Content: Disorganized and Preoccupation Hallucinations: Auditory Insight: Poor Judgement: Poor Vital Signs (Past 24 Hours) Last Vital Signs Temp 36.9 C 09/12/24 06:22 Pulse 79 09/12/24 06:22 Resp 16 09/12/24 06:22 BP 137/78 09/12/24 06:22 Pulse Ox 98 09/11/24 19:59 O2 Del Method Room Air 09/11/24 19:59 Results & Data ([facility]) Laboratory Results Laboratory Results - last 24 hr 09/12/24 09/12/24 07:39 07:57 WBC 7.20 RBC 4.01 L Hgb 12.1 L Hct 36.3 L MCV 90.5 MCH 30.2 MCHC 33.3 RDW Std Deviation 40.5 RDW Coeff of Kay 12.3 Plt Count 196 MPV 10.7 Immature Gran % (Auto) 0.3 Neut % (Auto) 65.2 Lymph % (Auto) 22.6 Tama % (Auto) 8.3 Eos % (Auto) 3.2 Baso % (Auto) 0.4 Neut # (Auto) 4.69 Lymph # (Auto) 1.63 [place] # (Auto) 0.60 H Eos # (Auto) 0.23 Baso # (Auto) 0.03 Immature Gran # (Auto) 0.02 POC Glucose 103 H Current Inpatient Medications Current Inpatient Medications: Current Inpatient Medications Acetaminophen (Acetaminophen 325 Mg Tab) 650 mg PO Q4H PRN PRN Reason: Headache or Minor Fever Stop: 10/04/24 14:11 Al Hydrox/Mg Hydrox/Simethicone (Aluminum/Magnesium Susp 30 Ml Udc) 30 ml PO Q4H PRN PRN Reason: GI Upset Stop: 10/04/24 14:11 Atorvastatin Calcium (Atorvastatin 40 Mg Tab) 40 mg PO HS [facility] Stop: 10/04/24 21:59 Last Admin: 09/11/24 20:46 Dose: 40 mg Bismuth Subsalicylate (Bismuth Subsalicylate 262 Mg Chew) 2 tab PO Q30M PRN PRN Reason: Loose Stool/Diarrhea Stop: 10/04/24 14:11 Clozapine (Clozapine 100 Mg Tab) 350 mg PO HS [facility] Stop: 10/12/24 21:59 Cyanocobalamin (Cyanocobalamin (B-12) 100 Mcg Tablet) 100 mcg PO QAM [facility] Stop: 10/05/24 08:59 Last Admin: 09/12/24 08:30 Dose: 100 mcg Divalproex Sodium (Divalproex Extended Release 500 Mg Tab) 500 mg PO HS [facility] Stop: 10/06/24 21:59 Last Admin: 09/11/24 20:46 Dose: 500 mg Docusate Sodium (Docusate Sodium 100 Mg Cap) 100 mg PO BID [facility] Stop: 10/07/24 20:59 Last Admin: 09/12/24 08:30 Dose: 100 mg Glycopyrrolate (Glycopyrrolate 1 Mg Tab) 1 mg PO BID [facility] Stop: 10/12/24 14:59 Last Admin: 09/12/24 15:09 Dose: 1 mg Haloperidol (Haloperidol 5 Mg Tab) 5 mg PO DAILY PRN PRN Reason: psychosis Stop: 10/08/24 15:56 Last Admin: 09/10/24 11:11 Dose: 5 mg Haloperidol (Haloperidol 0.5 Mg Tab) 2.5 mg PO BID [facility] Stop: 10/12/24 20:59 Haloperidol Lactate (Haloperidol Lactate 5 Mg/Ml 1 Ml Vial) 5 mg IM BID PRN PRN Reason: agitation Stop: 10/04/24 15:34 Hydroxyzine HCl (Hydroxyzine Hcl 25 Mg Tab) 50 mg PO HSZ PRN PRN Reason: Insomnia Stop: 10/04/24 14:11 Last Admin: 09/09/24 00:25 Dose: 50 mg Hydroxyzine HCl (Hydroxyzine Hcl 25 Mg Tab) 25 mg PO Q4H PRN PRN Reason: Anxiety Stop: 10/04/24 14:11 Ipratropium [place] (Ipratropium [place] Nasal [place] 0.06% 15ml) 3 sprays SL TID [facility] Stop: 10/09/24 13:59 Last Admin: 09/12/24 14:01 Dose: 3 sprays Levothyroxine Sodium (Levothyroxine Sodium 25 Mcg Tablet) 25 mcg PO DAILYBB [facility] Stop: 10/05/24 07:59 Last Admin: 09/12/24 08:29 Dose: 25 mcg Lisinopril (Lisinopril 20 Mg Tab) 20 mg PO DAILY [facility] Stop: 10/05/24 08:59 Last Admin: 09/12/24 08:31 Dose: 20 mg Lorazepam (Lorazepam 2 Mg/1 Ml Vial) 1 mg IM BID PRN PRN Reason: Agitation Stop: 10/04/24 15:34 Lorazepam (Lorazepam 1 Mg Tab) 1 mg PO DAILY PRN PRN Reason: restlessness Stop: 10/06/24 02:07 Last Admin: 09/06/24 02:20 Dose: 1 mg Lorazepam (Lorazepam 1 Mg Tab) 1 mg PO HS [facility] Stop: 10/06/24 21:59 Last Admin: 09/11/24 20:46 Dose: 1 mg Magnesium Hydroxide (Magnesium Hydroxide Susp 30 Ml Udc) 30 ml PO DAILY PRN PRN Reason: Constipation Stop: 10/04/24 14:11 Meloxicam (Meloxicam 7.5 Mg Tab) 15 mg PO DAILY [facility] Stop: 10/05/24 08:59 Last Admin: 09/12/24 08:32 Dose: 15 mg Metformin HCl (Metformin Hcl 500 Mg Tab) 1,000 mg PO BID17 [facility] Stop: 10/04/24 16:59 Last Admin: 09/12/24 08:32 Dose: 1,000 mg Miscellaneous (Remove Nicoderm Patch) 1 each N/A 2100 [facility] Stop: 10/05/24 20:59 Last Admin: 09/11/24 21:39 Dose: 1 each Multivitamins (Multivitamin Tab) 1 tab PO DAILY [facility] Stop: 10/05/24 08:59 Last Admin: 09/12/24 08:33 Dose: 1 tab Nicotine (Nicotine 21 Mg/24 Hr Tdsy) 1 patch TD QAM [facility] Stop: 10/05/24 09:44 Last Admin: 09/12/24 09:21 Dose: 1 patch Nicotine Polacrilex (Nicotine Polacrilex 2 Mg Gum) 1 piece MT Q2H PRN PRN Reason: smoking cessation Stop: 10/04/24 15:22 Last Admin: 09/12/24 12:37 Dose: 1 piece Paroxetine HCl (Paroxetine Hcl 10 Mg Tab) 30 mg PO DAILY [facility] Stop: 10/05/24 08:59 Last Admin: 09/12/24 08:33 Dose: 30 mg Polyethylene Glycol (Polyethylene (Miralax) 17 Gm Pack) 17 gm PO DAILY [facility] Stop: 10/05/24 08:59 Last Admin: 09/12/24 08:34 Dose: 17 gm Sennosides (Senna 8.6 Mg Tab) 8.6 mg PO Q2D PRN PRN Reason: constipation Stop: 10/04/24 15:30 Sodium Chloride (Sodium Chloride 0.65% Na Soln 45 Ml ([place])) 1 - 2 sprays NA PRN PRN PRN Reason: Nasal Dryness/Congestion Stop: 10/04/24 14:11 Vitamin D (Cholecalciferol 25 Mcg (1000 Units) Tab) 50 mcg PO QAM [facility] Stop: 10/05/24 08:59 Last Admin: 09/12/24 08:29 Dose: 50 mcg Mental Health & Subst Abuse Tx Psychiatrist Name of Psychiatrist: Haley PATEL Psychiatrist's Residential Sales Manager Name of Residential Sales Manager: Linda Morris Phone Number for Residential Sales Manager: [phone] Post Discharge Appointments Primary Care Physician Name Of Family Doctor/PCP: Dr. Deonte Martinez Primary Care Date of Future Appointment with PCP: 09/27/24 Time of Appointment with PCP: 2:20 PM Provider Appointment Comment: Arrive @ 205pm, isaac Flores. Check in via [employer]. Bring meds. (1) Psychosis Psychosis type: schizophrenia Schizophrenia type: paranoid schizophrenia Qualified Code(s): F20.0 - Paranoid schizophrenia
[2024-09-12] MEDS ORDERED: GLYCOPYRROLATE 1 MG TAB PO SCH (21:00)
--- NOTE | 2024-09-13 13:40 | Psychiatric Progress Note ---
Date of Service September 13, 2024 Impression / Recommendations Impression REBA KELLY is a 69-year-old man who currently lives [facility], has a history of schizophrenia, recent subdural hematoma, HTN, Type II diabetes, HLD, BPH and was admitted on 09/04/24 14:12 on a 303 involuntary commitment for psychosis and disorganization (expiring 09/23/24). Diagnostically consistent with acute exacerbation of schizophrenia vs post TBI/subdural psychosis given recent fall and hematoma in July 2024. Medical team felt delirium unlikely and his confusion has lessened. Ongoing loosening associations, hyperreligious and paranoia delusions, disorganized behaviors at times, and auditory and visual hallucinations. He had been stable on clozapine for many years but seems to have decompensated in the setting of his recent fall. Given symptoms of hyperreligious beliefs, initial poor sleep and concern for psychomotor activation (suspected cause of his elevated CK on medical admission) possibility of schizoaffective disorder but would be atypical for first episode of dolores to show up at his age. rather suspect that recent bleed may have contributed to some increased disinhibition leading to odd behaviors, worsened psychosis and hyperreligious delusions. No signs to suggest seizure at this time nor while on the medical service but his risk for this is higher given recent subdural hematoma. Brain MRI showed no abnormal brain enhancements, some mild chronic small vessel ischemic change which could partially explain why his brain may now be more vulnerable to psychosis if a mild cognitive impairment process is also at play. UA normal, no reason to suspect UTI at this time. A: Patient appears more oriented and organized than on admission. Intermittent confusion. Continues to be hyperreligious and hyper sexual at times. Concern for auditory hallucinations. Requires some prompting with ADLs. Sialorrhea appears reduced. MNPR due to recent disrobing, psychosis, disorganization Overall, I spent a total of 45 minutes on this case including meeting with the patient, reviewing the chart, nursing report, multidisciplinary team meeting, orders, and documentation. (1) Psychosis: (2) Schizophrenia: (3) Hypersexuality: (4) Auditory hallucinations: (5) Hyperlipidemia: (6) Type 2 diabetes mellitus: (7) Hypertension: Plan 09/13/24: Continue medications and treatment plan 09/12/2024: Decrease clozapine to 350 mg at bedtime Start glycopyrrolate 1 mg twice daily Decrease haloperidol to 2.5 mg twice daily 09/11/2024: -Increase clozapine to 400mg HS 09/10/2024: -Increase clozapine to 350mg HS 09/09/2024: -Increase haldol back to 2.5mg TID -Increase ipratropium bromide 0.06% under the tongue to 3 sprays TID for sialorrhea -Increase clozapine to 300mg HS 09/08/2024: -Decrease haldol to 2.5mg HS -Discontinue topiramate 09/07/2024: -Decrease haldol to 2.5mg BID -Increase clozapine to 250mg HS 09/06/2024: -Increase Depakote ER to 500mg -Increase ipratropium bromide 0.06% under the tongue to 2 sprays TID -taper Topiramate to 25mg HS to reduce polypharmacy burden 09/05/2024: The patient was admitted to the [facility] ([facility] unit) on q15 min checks (behavioral with suicide precautions) for safety. The patient will participate in group, recreational, and milieu therapies and will be offered additional individual and family sessions as clinically appropriate. -Continue psychiatric medications: * Clozapine 200mg HS (consider further dose titration) * Topiramate 25mg BID * Haldol 2.5mg TID * Ativan 1mg HS (goal to taper as sleep improves and stabilizes) -Adjust: * Paxil from 30mg BID to 30mg daily -Start: * Depakote ER 250mg HS -Clozapine level, fasting lipid panel, HBA1c tomorrow AM -Repeat EKG given his age and now on multiple medications that can impact QTc interval Inventory Assets Strengths: supportive living environment, cooperative Needs: safety and stabilization, medication adjustment, additional coping skills, increased outpatient services Suicide Risk Level Suicide Risk Level: Moderate (q15 min suicide checks) (denies SI but with increased hallucinations and delusions which are negatively impacting his mood and are distressing) Suicide Risk Level Comments: Risk Factors Assessment Male: Yes : Yes Do You Have Access To A Gun?: No Health Problems: Yes Mental Health Diagnoses: Yes Substance Use Disorders: No Previous Attempt: No Family History of Suicide: No Previous Psychiatric Hospitalization: Yes Hopelessness: No Protective Factors Assessment Presybeterian Beliefs: Yes Good Rapport with Provider: Yes Interval History Identifying Information REBA KELLY is a 69-year-old man who currently lives [facility], has a history of schizophrenia, recent subdural hematoma, HTN, Type II diabetes, HLD, BPH and was admitted on 09/04/24 14:12 on a 303 involuntary commitment for psychosis and disorganization. Chief Complaint AMS, Psychosis Review of Systems Sleep Information Total Hours of Sleep: 4.75 Meal Information Percent Meal Consumed - Breakfast: 100 Percent Meal Consumed - Lunch: 25 Percent Meal Consumed - Dinner: 75 Nutrition Comment: Ate late Subjective Subjective Patient was seen & assessed and interval progress reviewed with treatment team nursing and social work Overnight slept 4.5 hours. Continued drooling and incontinent of urine at times. Continues to be religiously preoccupied and at times hypersexual. Periods of confusion. On interview patient is alert and oriented to location, self, year however not to month. Unable to answer all questions appropriately. Reports toileting well. Reports having pleasant dreams. Says voices are not bothersome. Tells me he wants to go to a gym and [place] to see beautiful woman. Physical Exam Mental Examination Appearance: Disheveled Eye Contact: Maintains Eye Contact Motor Behavior: Slowed and Weakness Speech: Soft and Disorganized Mood: Calm Affect: Blunted Thought Process: Disorganized, Loose Associations and Slowed Thinking Thought Content: Disorganized and Preoccupation Hallucinations: Auditory Insight: Poor Judgement: Poor Vital Signs (Past 24 Hours) Last Vital Signs Temp 36.9 C 09/13/24 06:20 Pulse 80 09/13/24 06:21 Resp 16 09/13/24 06:20 BP 127/77 09/13/24 06:21 Pulse Ox 98 09/11/24 19:59 O2 Del Method Room Air 09/11/24 19:59 Results & Data ([facility]) Laboratory Results Laboratory Results - last 24 hr 09/13/24 08:13 POC Glucose 92 Current Inpatient Medications Current Inpatient Medications: Current Inpatient Medications Acetaminophen (Acetaminophen 325 Mg Tab) 650 mg PO Q4H PRN PRN Reason: Headache or Minor Fever Stop: 10/04/24 14:11 Al Hydrox/Mg Hydrox/Simethicone (Aluminum/Magnesium Susp 30 Ml Udc) 30 ml PO Q4H PRN PRN Reason: GI Upset Stop: 10/04/24 14:11 Atorvastatin Calcium (Atorvastatin 40 Mg Tab) 40 mg PO HS [facility] Stop: 10/04/24 21:59 Last Admin: 09/12/24 21:34 Dose: 40 mg Bismuth Subsalicylate (Bismuth Subsalicylate 262 Mg Chew) 2 tab PO Q30M PRN PRN Reason: Loose Stool/Diarrhea Stop: 10/04/24 14:11 Clozapine (Clozapine 100 Mg Tab) 350 mg PO HS [facility] Stop: 10/12/24 21:59 Last Admin: 09/12/24 21:35 Dose: 350 mg Cyanocobalamin (Cyanocobalamin (B-12) 100 Mcg Tablet) 100 mcg PO QAM [facility] Stop: 10/05/24 08:59 Last Admin: 09/13/24 08:35 Dose: 100 mcg Divalproex Sodium (Divalproex Extended Release 500 Mg Tab) 500 mg PO HS [facility] Stop: 10/06/24 21:59 Last Admin: 09/12/24 21:34 Dose: 500 mg Docusate Sodium (Docusate Sodium 100 Mg Cap) 100 mg PO BID [facility] Stop: 10/07/24 20:59 Last Admin: 09/13/24 08:35 Dose: 100 mg Glycopyrrolate (Glycopyrrolate 1 Mg Tab) 1 mg PO BID [facility] Stop: 10/12/24 14:59 Last Admin: 09/13/24 08:35 Dose: 1 mg Haloperidol (Haloperidol 5 Mg Tab) 5 mg PO DAILY PRN PRN Reason: psychosis Stop: 10/08/24 15:56 Last Admin: 09/10/24 11:11 Dose: 5 mg Haloperidol (Haloperidol 5 Mg Tab) 2.5 mg PO BID [facility] Stop: 10/13/24 08:59 Last Admin: 09/13/24 08:38 Dose: 2.5 mg Haloperidol Lactate (Haloperidol Lactate 5 Mg/Ml 1 Ml Vial) 5 mg IM BID PRN PRN Reason: agitation Stop: 10/04/24 15:34 Hydroxyzine HCl (Hydroxyzine Hcl 25 Mg Tab) 50 mg PO HSZ PRN PRN Reason: Insomnia Stop: 10/04/24 14:11 Last Admin: 09/09/24 00:25 Dose: 50 mg Hydroxyzine HCl (Hydroxyzine Hcl 25 Mg Tab) 25 mg PO Q4H PRN PRN Reason: Anxiety Stop: 10/04/24 14:11 Ipratropium [place] (Ipratropium [place] Nasal [place] 0.06% 15ml) 3 sprays SL TID [facility] Stop: 10/09/24 13:59 Last Admin: 09/13/24 08:35 Dose: 3 sprays Levothyroxine Sodium (Levothyroxine Sodium 25 Mcg Tablet) 25 mcg PO DAILYBB [facility] Stop: 10/05/24 07:59 Last Admin: 09/13/24 08:33 Dose: 25 mcg Lisinopril (Lisinopril 20 Mg Tab) 20 mg PO DAILY [facility] Stop: 10/05/24 08:59 Last Admin: 09/13/24 08:36 Dose: 20 mg Lorazepam (Lorazepam 2 Mg/1 Ml Vial) 1 mg IM BID PRN PRN Reason: Agitation Stop: 10/04/24 15:34 Lorazepam (Lorazepam 1 Mg Tab) 1 mg PO DAILY PRN PRN Reason: restlessness Stop: 10/06/24 02:07 Last Admin: 09/06/24 02:20 Dose: 1 mg Lorazepam (Lorazepam 1 Mg Tab) 1 mg PO HS [facility] Stop: 10/06/24 21:59 Last Admin: 09/12/24 21:34 Dose: 1 mg Magnesium Hydroxide (Magnesium Hydroxide Susp 30 Ml Udc) 30 ml PO DAILY PRN PRN Reason: Constipation Stop: 10/04/24 14:11 Meloxicam (Meloxicam 7.5 Mg Tab) 15 mg PO DAILY [facility] Stop: 10/05/24 08:59 Last Admin: 09/13/24 08:36 Dose: 15 mg Metformin HCl (Metformin Hcl 500 Mg Tab) 1,000 mg PO BID17 [facility] Stop: 10/04/24 16:59 Last Admin: 09/13/24 08:37 Dose: 1,000 mg Miscellaneous (Remove Nicoderm Patch) 1 each N/A 2100 [facility] Stop: 10/05/24 20:59 Last Admin: 09/12/24 21:40 Dose: 1 each Multivitamins (Multivitamin Tab) 1 tab PO DAILY [facility] Stop: 10/05/24 08:59 Last Admin: 09/13/24 08:37 Dose: 1 tab Nicotine (Nicotine 21 Mg/24 Hr Tdsy) 1 patch TD QAM [facility] Stop: 10/05/24 09:44 Last Admin: 09/13/24 08:37 Dose: 1 patch Nicotine Polacrilex (Nicotine Polacrilex 2 Mg Gum) 1 piece MT Q2H PRN PRN Reason: smoking cessation Stop: 10/04/24 15:22 Last Admin: 09/12/24 12:37 Dose: 1 piece Paroxetine HCl (Paroxetine Hcl 10 Mg Tab) 30 mg PO DAILY [facility] Stop: 10/05/24 08:59 Last Admin: 09/13/24 08:37 Dose: 30 mg Polyethylene Glycol (Polyethylene (Miralax) 17 Gm Pack) 17 gm PO DAILY [facility] Stop: 10/05/24 08:59 Last Admin: 09/13/24 08:37 Dose: 17 gm Sennosides (Senna 8.6 Mg Tab) 8.6 mg PO Q2D PRN PRN Reason: constipation Stop: 10/04/24 15:30 Sodium Chloride (Sodium Chloride 0.65% Na Soln 45 Ml ([place])) 1 - 2 sprays NA PRN PRN PRN Reason: Nasal Dryness/Congestion Stop: 10/04/24 14:11 Vitamin D (Cholecalciferol 25 Mcg (1000 Units) Tab) 50 mcg PO QAM [facility] Stop: 10/05/24 08:59 Last Admin: 09/13/24 08:33 Dose: 50 mcg Mental Health & Subst Abuse Tx Psychiatrist Name of Psychiatrist: Haley PATEL Psychiatrist's Youth Development Professional Name of Youth Development Professional: Linda Morris Phone Number for Youth Development Professional: [phone] Post Discharge Appointments Primary Care Physician Name Of Family Doctor/PCP: Dr. Deonte Martinez Primary Care Date of Future Appointment with PCP: 09/27/24 Time of Appointment with PCP: 2:20 PM Provider Appointment Comment: Arrive @ 205pm, isaac Flores. Check in via [employer]. Bring meds. (1) Psychosis Psychosis type: schizophrenia Schizophrenia type: paranoid schizophrenia Qualified Code(s): F20.0 - Paranoid schizophrenia
--- NOTE | 2024-09-14 13:36 | Psychiatric Progress Note ---
Date of Service September 14, 2024 Impression / Recommendations Impression REBA KELLY is a 69-year-old man who currently lives [facility], has a history of schizophrenia, recent subdural hematoma, HTN, Type II diabetes, HLD, BPH and was admitted on 09/04/24 14:12 on a 303 involuntary commitment for psychosis and disorganization (expiring 09/23/24). Diagnostically consistent with acute exacerbation of schizophrenia vs post TBI/subdural psychosis given recent fall and hematoma in July 2024. Medical team felt delirium unlikely and his confusion has lessened. Ongoing loosening associations, hyperreligious and paranoia delusions, disorganized behaviors at times, and auditory and visual hallucinations. He had been stable on clozapine for many years but seems to have decompensated in the setting of his recent fall. Given symptoms of hyperreligious beliefs, initial poor sleep and concern for psychomotor activation (suspected cause of his elevated CK on medical admission) possibility of schizoaffective disorder but would be atypical for first episode of dolores to show up at his age. rather suspect that recent bleed may have contributed to some increased disinhibition leading to odd behaviors, worsened psychosis and hyperreligious delusions. No signs to suggest seizure at this time nor while on the medical service but his risk for this is higher given recent subdural hematoma. Brain MRI showed no abnormal brain enhancements, some mild chronic small vessel ischemic change which could partially explain why his brain may now be more vulnerable to psychosis if a mild cognitive impairment process is also at play. UA normal, no reason to suspect UTI at this time. A: Patient continues to be disoriented at times. Concern for thought disorganization and active psychosis. Independent with ADLs. Clozapine induced sialorrhea improved and we will continue Clozapine titration with close monitoring. MNPR due to recent disrobing, psychosis, disorganization Overall, I spent a total of 45 minutes on this case including meeting with the patient, reviewing the chart, nursing report, multidisciplinary team meeting, orders, and documentation. (1) Psychosis: (2) Schizophrenia: (3) Hypersexuality: (4) Auditory hallucinations: (5) Hyperlipidemia: (6) Type 2 diabetes mellitus: (7) Hypertension: Plan 09/14/2024: Start Clozapine 25 mg in the morning 09/13/24: Continue medications and treatment plan 09/12/2024: Decrease clozapine to 350 mg at bedtime Start glycopyrrolate 1 mg twice daily Decrease haloperidol to 2.5 mg twice daily 09/11/2024: -Increase clozapine to 400mg HS 09/10/2024: -Increase clozapine to 350mg HS 09/09/2024: -Increase haldol back to 2.5mg TID -Increase ipratropium bromide 0.06% under the tongue to 3 sprays TID for sialorrhea -Increase clozapine to 300mg HS 09/08/2024: -Decrease haldol to 2.5mg HS -Discontinue topiramate 09/07/2024: -Decrease haldol to 2.5mg BID -Increase clozapine to 250mg HS 09/06/2024: -Increase Depakote ER to 500mg -Increase ipratropium bromide 0.06% under the tongue to 2 sprays TID -taper Topiramate to 25mg HS to reduce polypharmacy burden 09/05/2024: The patient was admitted to the [facility] ([facility] unit) on q15 min checks (behavioral with suicide precautions) for safety. The patient will participate in group, recreational, and milieu therapies and will be offered additional individual and family sessions as clinically appropriate. -Continue psychiatric medications: * Clozapine 200mg HS (consider further dose titration) * Topiramate 25mg BID * Haldol 2.5mg TID * Ativan 1mg HS (goal to taper as sleep improves and stabilizes) -Adjust: * Paxil from 30mg BID to 30mg daily -Start: * Depakote ER 250mg HS -Clozapine level, fasting lipid panel, HBA1c tomorrow AM -Repeat EKG given his age and now on multiple medications that can impact QTc interval Inventory Assets Strengths: supportive living environment, cooperative Needs: safety and stabilization, medication adjustment, additional coping skills, increased outpatient services Suicide Risk Level Suicide Risk Level: Moderate (q15 min suicide checks) (denies SI but with increased hallucinations and delusions which are negatively impacting his mood and are distressing) Suicide Risk Level Comments: Risk Factors Assessment Male: Yes : Yes Do You Have Access To A Gun?: No Health Problems: Yes Mental Health Diagnoses: Yes Substance Use Disorders: No Previous Attempt: No Family History of Suicide: No Previous Psychiatric Hospitalization: Yes Hopelessness: No Protective Factors Assessment Shinto Beliefs: Yes Good Rapport with Provider: Yes Interval History Identifying Information REBA KELLY is a 69-year-old man who currently lives [facility], has a history of schizophrenia, recent subdural hematoma, HTN, Type II diabetes, HLD, BPH and was admitted on 09/04/24 14:12 on a 303 involuntary commitment for psychosis and disorganization. Chief Complaint Psychosis Review of Systems Sleep Information Total Hours of Sleep: 5.75 Meal Information Percent Meal Consumed - Breakfast: 100 Percent Meal Consumed - Lunch: 25 Percent Meal Consumed - Dinner: 30 Nutrition Comment: Ate late Subjective Subjective Patient was seen & assessed and interval progress reviewed with treatment team nursing and social work Patient slept 6.5 hours. Continues to present hypersexual notes to staff members. Otherwise pleasant and redirectable. Unable to tolerate groups. Independent with ADLs with no urinary incontinence overnight. Staff noted he did not have a towel in his mouth today. On interview patient appears drowsy. Alert and oriented to self, year, location however not to month. Reports sleeping well. Presenting dysarthric speech and is difficult to comprehend. Endorses improved drooling and no excess salivation seen on exam. Physical Exam Mental Examination Appearance: Disheveled Eye Contact: Maintains Eye Contact Motor Behavior: Slowed and Weakness Speech: Soft and Disorganized Mood: Calm Affect: Blunted Thought Process: Disorganized, Loose Associations and Slowed Thinking Thought Content: Disorganized and Preoccupation Hallucinations: Auditory Insight: Poor Judgement: Poor Vital Signs (Past 24 Hours) Last Vital Signs Temp 36.5 C 09/14/24 06:25 Pulse 81 09/14/24 06:26 Resp 16 09/14/24 06:25 BP 144/85 H 09/14/24 06:26 Pulse Ox 98 09/11/24 19:59 O2 Del Method Room Air 09/11/24 19:59 Results & Data ([facility]) Current Inpatient Medications Current Inpatient Medications: Current Inpatient Medications Acetaminophen (Acetaminophen 325 Mg Tab) 650 mg PO Q4H PRN PRN Reason: Headache or Minor Fever Stop: 10/04/24 14:11 Al Hydrox/Mg Hydrox/Simethicone (Aluminum/Magnesium Susp 30 Ml Udc) 30 ml PO Q4H PRN PRN Reason: GI Upset Stop: 10/04/24 14:11 Atorvastatin Calcium (Atorvastatin 40 Mg Tab) 40 mg PO HS [facility] Stop: 10/04/24 21:59 Last Admin: 09/13/24 20:53 Dose: 40 mg Bismuth Subsalicylate (Bismuth Subsalicylate 262 Mg Chew) 2 tab PO Q30M PRN PRN Reason: Loose Stool/Diarrhea Stop: 10/04/24 14:11 Clozapine (Clozapine 100 Mg Tab) 350 mg PO HS [facility] Stop: 10/12/24 21:59 Last Admin: 09/13/24 20:54 Dose: 350 mg Cyanocobalamin (Cyanocobalamin (B-12) 100 Mcg Tablet) 100 mcg PO QAM [facility] Stop: 10/05/24 08:59 Last Admin: 09/14/24 08:30 Dose: 100 mcg Divalproex Sodium (Divalproex Extended Release 500 Mg Tab) 500 mg PO HS [facility] Stop: 10/06/24 21:59 Last Admin: 09/13/24 20:53 Dose: 500 mg Docusate Sodium (Docusate Sodium 100 Mg Cap) 100 mg PO BID [facility] Stop: 10/07/24 20:59 Last Admin: 09/14/24 08:30 Dose: 100 mg Glycopyrrolate (Glycopyrrolate 1 Mg Tab) 1 mg PO BID [facility] Stop: 10/12/24 14:59 Last Admin: 09/14/24 08:31 Dose: 1 mg Haloperidol (Haloperidol 5 Mg Tab) 5 mg PO DAILY PRN PRN Reason: psychosis Stop: 10/08/24 15:56 Last Admin: 09/10/24 11:11 Dose: 5 mg Haloperidol (Haloperidol 5 Mg Tab) 2.5 mg PO BID [facility] Stop: 10/13/24 08:59 Last Admin: 09/14/24 08:31 Dose: 2.5 mg Haloperidol Lactate (Haloperidol Lactate 5 Mg/Ml 1 Ml Vial) 5 mg IM BID PRN PRN Reason: agitation Stop: 10/04/24 15:34 Hydroxyzine HCl (Hydroxyzine Hcl 25 Mg Tab) 50 mg PO HSZ PRN PRN Reason: Insomnia Stop: 10/04/24 14:11 Last Admin: 09/09/24 00:25 Dose: 50 mg Hydroxyzine HCl (Hydroxyzine Hcl 25 Mg Tab) 25 mg PO Q4H PRN PRN Reason: Anxiety Stop: 10/04/24 14:11 Ipratropium [place] (Ipratropium [place] Nasal [place] 0.06% 15ml) 3 sprays SL TID [facility] Stop: 10/09/24 13:59 Last Admin: 09/14/24 08:32 Dose: 3 sprays Levothyroxine Sodium (Levothyroxine Sodium 25 Mcg Tablet) 25 mcg PO DAILYBB [facility] Stop: 10/05/24 07:59 Last Admin: 09/14/24 08:30 Dose: 25 mcg Lisinopril (Lisinopril 20 Mg Tab) 20 mg PO DAILY [facility] Stop: 10/05/24 08:59 Last Admin: 09/14/24 08:32 Dose: 20 mg Lorazepam (Lorazepam 2 Mg/1 Ml Vial) 1 mg IM BID PRN PRN Reason: Agitation Stop: 10/04/24 15:34 Lorazepam (Lorazepam 1 Mg Tab) 1 mg PO DAILY PRN PRN Reason: restlessness Stop: 10/06/24 02:07 Last Admin: 09/06/24 02:20 Dose: 1 mg Lorazepam (Lorazepam 1 Mg Tab) 1 mg PO HS [facility] Stop: 10/06/24 21:59 Last Admin: 09/13/24 21:01 Dose: 1 mg Magnesium Hydroxide (Magnesium Hydroxide Susp 30 Ml Udc) 30 ml PO DAILY PRN PRN Reason: Constipation Stop: 10/04/24 14:11 Meloxicam (Meloxicam 7.5 Mg Tab) 15 mg PO DAILY [facility] Stop: 10/05/24 08:59 Last Admin: 09/14/24 08:32 Dose: 15 mg Metformin HCl (Metformin Hcl 500 Mg Tab) 1,000 mg PO BID17 [facility] Stop: 10/04/24 16:59 Last Admin: 09/14/24 08:33 Dose: 1,000 mg Miscellaneous (Remove Nicoderm Patch) 1 each N/A 2100 [facility] Stop: 10/05/24 20:59 Last Admin: 09/13/24 20:55 Dose: Not Given Multivitamins (Multivitamin Tab) 1 tab PO DAILY [facility] Stop: 10/05/24 08:59 Last Admin: 09/14/24 08:33 Dose: 1 tab Nicotine (Nicotine 21 Mg/24 Hr Tdsy) 1 patch TD QAM [facility] Stop: 10/05/24 09:44 Last Admin: 09/14/24 08:34 Dose: 1 patch Nicotine Polacrilex (Nicotine Polacrilex 2 Mg Gum) 1 piece MT Q2H PRN PRN Reason: smoking cessation Stop: 10/04/24 15:22 Last Admin: 09/12/24 12:37 Dose: 1 piece Paroxetine HCl (Paroxetine Hcl 10 Mg Tab) 30 mg PO DAILY [facility] Stop: 10/05/24 08:59 Last Admin: 09/14/24 08:34 Dose: 30 mg Polyethylene Glycol (Polyethylene (Miralax) 17 Gm Pack) 17 gm PO DAILY [facility] Stop: 10/05/24 08:59 Last Admin: 09/14/24 08:35 Dose: 17 gm Sennosides (Senna 8.6 Mg Tab) 8.6 mg PO Q2D PRN PRN Reason: constipation Stop: 10/04/24 15:30 Sodium Chloride (Sodium Chloride 0.65% Na Soln 45 Ml ([place])) 1 - 2 sprays NA PRN PRN PRN Reason: Nasal Dryness/Congestion Stop: 10/04/24 14:11 Vitamin D (Cholecalciferol 25 Mcg (1000 Units) Tab) 50 mcg PO QAM [facility] Stop: 10/05/24 08:59 Last Admin: 09/14/24 08:30 Dose: 50 mcg Mental Health & Subst Abuse Tx Psychiatrist Name of Psychiatrist: Haley PATEL Psychiatrist's [employer] Name of [employer] School: [employer] Phone Number for Rn School: [phone] Post Discharge Appointments Primary Care Physician Name Of Family Doctor/PCP: Dr. Deonte Martinez Primary Care Date of Future Appointment with PCP: 09/27/24 Time of Appointment with PCP: 2:20 PM Provider Appointment Comment: Arrive @ 205pm, isaac Flores. Check in via [facility]. Bring meds. (1) Psychosis Psychosis type: schizophrenia Schizophrenia type: paranoid schizophrenia Qualified Code(s): F20.0 - Paranoid schizophrenia
--- NOTE | 2024-09-15 15:34 | Psychiatric Progress Note ---
Date of Service September 15, 2024 Impression / Recommendations Impression REBA KELLY is a 69-year-old man who currently lives [facility], has a history of schizophrenia, recent subdural hematoma, HTN, Type II diabetes, HLD, BPH and was admitted on 09/04/24 14:12 on a 303 involuntary commitment for psychosis and disorganization (expiring 09/23/24). Diagnostically consistent with acute exacerbation of schizophrenia vs post TBI/subdural psychosis given recent fall and hematoma in July 2024. Medical team felt delirium unlikely and his confusion has lessened. Ongoing loosening associations, hyperreligious and paranoia delusions, disorganized behaviors at times, and auditory and visual hallucinations. He had been stable on clozapine for many years but seems to have decompensated in the setting of his recent fall. Given symptoms of hyperreligious beliefs, initial poor sleep and concern for psychomotor activation (suspected cause of his elevated CK on medical admission) possibility of schizoaffective disorder but would be atypical for first episode of dolores to show up at his age. rather suspect that recent bleed may have contributed to some increased disinhibition leading to odd behaviors, worsened psychosis and hyperreligious delusions. No signs to suggest seizure at this time nor while on the medical service but his risk for this is higher given recent subdural hematoma. Brain MRI showed no abnormal brain enhancements, some mild chronic small vessel ischemic change which could partially explain why his brain may now be more vulnerable to psychosis if a mild cognitive impairment process is also at play. UA normal, no reason to suspect UTI at this time. A: Patient continues to be slightly disoriented, presents thought disorganization, urinary incontinence. Sialorrhea slightly improved. Continued psychosis. MNPR due to recent disrobing, psychosis, disorganization Overall, I spent a total of 45 minutes on this case including meeting with the patient, reviewing the chart, nursing report, multidisciplinary team meeting, orders, and documentation. (1) Psychosis: (2) Schizophrenia: (3) Hypersexuality: (4) Auditory hallucinations: (5) Hyperlipidemia: (6) Type 2 diabetes mellitus: (7) Hypertension: Plan 09/15/2024: Increase clozapine to 50 mg in the morning. Increase glycopyrrolate to 1.5 mg twice daily. 09/14/2024: Start Clozapine 25 mg in the morning 09/13/24: Continue medications and treatment plan 09/12/2024: Decrease clozapine to 350 mg at bedtime Start glycopyrrolate 1 mg twice daily Decrease haloperidol to 2.5 mg twice daily 09/11/2024: -Increase clozapine to 400mg HS 09/10/2024: -Increase clozapine to 350mg HS 09/09/2024: -Increase haldol back to 2.5mg TID -Increase ipratropium bromide 0.06% under the tongue to 3 sprays TID for sialorrhea -Increase clozapine to 300mg HS 09/08/2024: -Decrease haldol to 2.5mg HS -Discontinue topiramate 09/07/2024: -Decrease haldol to 2.5mg BID -Increase clozapine to 250mg HS 09/06/2024: -Increase Depakote ER to 500mg -Increase ipratropium bromide 0.06% under the tongue to 2 sprays TID -taper Topiramate to 25mg HS to reduce polypharmacy burden 09/05/2024: The patient was admitted to the [facility] ([facility] mental health unit) on q15 min checks (behavioral with suicide precautions) for safety. The patient will participate in group, recreational, and milieu therapies and will be offered additional individual and family sessions as clinically appropriate. -Continue psychiatric medications: * Clozapine 200mg HS (consider further dose titration) * Topiramate 25mg BID * Haldol 2.5mg TID * Ativan 1mg HS (goal to taper as sleep improves and stabilizes) -Adjust: * Paxil from 30mg BID to 30mg daily -Start: * Depakote ER 250mg HS -Clozapine level, fasting lipid panel, HBA1c tomorrow AM -Repeat EKG given his age and now on multiple medications that can impact QTc interval Inventory Assets Strengths: supportive living environment, cooperative Needs: safety and stabilization, medication adjustment, additional coping skills, increased outpatient services Suicide Risk Level Suicide Risk Level: Moderate (q15 min suicide checks) (denies SI but with increased hallucinations and delusions which are negatively impacting his mood and are distressing) Suicide Risk Level Comments: Risk Factors Assessment Male: Yes : Yes Do You Have Access To A Gun?: No Health Problems: Yes Mental Health Diagnoses: Yes Substance Use Disorders: No Previous Attempt: No Family History of Suicide: No Previous Psychiatric Hospitalization: Yes Hopelessness: No Protective Factors Assessment Rastafari Beliefs: Yes Good Rapport with Provider: Yes Interval History Identifying Information REBA KELLY is a 69-year-old man who currently lives [facility], has a history of schizophrenia, recent subdural hematoma, HTN, Type II diabetes, HLD, BPH and was admitted on 09/04/24 14:12 on a 303 involuntary commitment for psychosis and disorganization. Chief Complaint Psychosis, AMS Review of Systems Sleep Information Total Hours of Sleep: 5 Meal Information Percent Meal Consumed - Breakfast: 90 Percent Meal Consumed - Lunch: 75 Percent Meal Consumed - Dinner: 25 Nutrition Comment: Ate late Subjective Subjective Patient was seen & assessed and interval progress reviewed with treatment team nursing and social work Overnight patient presents intermittent confusion and thought disorganization. Asked a staff member if he was his boyfriend. Incontinent of urine. Sialorrhea improved. Bowel movement yesterday. Slept 5 to 6 hours. On interview the patient reports he dropped acid and had a bad trip. Having difficulty maintaining a linear stream of consciousness and rambles. Alert and oriented to self, [facility], year however not month. Reports hearing voices of lines morning. Says that he used to do miracles and that he is a son of God. Easily redirected. Physical Exam Mental Examination Appearance: Disheveled Eye Contact: Maintains Eye Contact Motor Behavior: Slowed and Weakness Speech: Soft and Disorganized Mood: Calm Affect: Blunted Thought Process: Disorganized, Loose Associations and Slowed Thinking Thought Content: Disorganized and Preoccupation Hallucinations: Auditory Insight: Poor Judgement: Poor Vital Signs (Past 24 Hours) Last Vital Signs Temp 36.9 C 09/15/24 06:25 Pulse 71 09/15/24 06:25 Resp 16 09/15/24 06:25 BP 120/70 09/15/24 06:25 Pulse Ox 98 09/11/24 19:59 O2 Del Method Room Air 09/11/24 19:59 Results & Data (U) Current Inpatient Medications Current Inpatient Medications: Current Inpatient Medications Acetaminophen (Acetaminophen 325 Mg Tab) 650 mg PO Q4H PRN PRN Reason: Headache or Minor Fever Stop: 10/04/24 14:11 Al Hydrox/Mg Hydrox/Simethicone (Aluminum/Magnesium Susp 30 Ml Udc) 30 ml PO Q4H PRN PRN Reason: GI Upset Stop: 10/04/24 14:11 Atorvastatin Calcium (Atorvastatin 40 Mg Tab) 40 mg PO HS [facility] Stop: 10/04/24 21:59 Last Admin: 09/14/24 20:45 Dose: 40 mg Bismuth Subsalicylate (Bismuth Subsalicylate 262 Mg Chew) 2 tab PO Q30M PRN PRN Reason: Loose Stool/Diarrhea Stop: 10/04/24 14:11 Clozapine (Clozapine 100 Mg Tab) 350 mg PO HS [facility] Stop: 10/12/24 21:59 Last Admin: 09/14/24 20:45 Dose: 350 mg Clozapine (Clozapine 25 Mg Tab) 50 mg PO DAILY [facility]; Protocol Stop: 10/16/24 08:59 Cyanocobalamin (Cyanocobalamin (B-12) 100 Mcg Tablet) 100 mcg PO QAM [facility] Stop: 10/05/24 08:59 Last Admin: 09/15/24 08:33 Dose: 100 mcg Divalproex Sodium (Divalproex Extended Release 500 Mg Tab) 500 mg PO HS [facility] Stop: 10/06/24 21:59 Last Admin: 09/14/24 20:45 Dose: 500 mg Docusate Sodium (Docusate Sodium 100 Mg Cap) 100 mg PO BID [facility] Stop: 10/07/24 20:59 Last Admin: 09/15/24 08:33 Dose: 100 mg Glycopyrrolate (Glycopyrrolate 1 Mg Tab) 1.5 mg PO BID [facility] Stop: 10/15/24 20:59 Haloperidol (Haloperidol 5 Mg Tab) 5 mg PO DAILY PRN PRN Reason: psychosis Stop: 10/08/24 15:56 Last Admin: 09/10/24 11:11 Dose: 5 mg Haloperidol (Haloperidol 5 Mg Tab) 2.5 mg PO BID [facility] Stop: 10/13/24 08:59 Last Admin: 09/15/24 08:34 Dose: 2.5 mg Haloperidol Lactate (Haloperidol Lactate 5 Mg/Ml 1 Ml Vial) 5 mg IM BID PRN PRN Reason: agitation Stop: 10/04/24 15:34 Hydroxyzine HCl (Hydroxyzine Hcl 25 Mg Tab) 50 mg PO HSZ PRN PRN Reason: Insomnia Stop: 10/04/24 14:11 Last Admin: 09/09/24 00:25 Dose: 50 mg Hydroxyzine HCl (Hydroxyzine Hcl 25 Mg Tab) 25 mg PO Q4H PRN PRN Reason: Anxiety Stop: 10/04/24 14:11 Ipratropium [place] (Ipratropium [place] Nasal [place] 0.06% 15ml) 3 sprays SL TID [facility] Stop: 10/09/24 13:59 Last Admin: 09/15/24 14:22 Dose: 3 sprays Levothyroxine Sodium (Levothyroxine Sodium 25 Mcg Tablet) 25 mcg PO DAILYBB [facility] Stop: 10/05/24 07:59 Last Admin: 09/15/24 08:32 Dose: 25 mcg Lisinopril (Lisinopril 20 Mg Tab) 20 mg PO DAILY [facility] Stop: 10/05/24 08:59 Last Admin: 09/15/24 08:34 Dose: 20 mg Lorazepam (Lorazepam 2 Mg/1 Ml Vial) 1 mg IM BID PRN PRN Reason: Agitation Stop: 10/04/24 15:34 Lorazepam (Lorazepam 1 Mg Tab) 1 mg PO DAILY PRN PRN Reason: restlessness Stop: 10/06/24 02:07 Last Admin: 09/06/24 02:20 Dose: 1 mg Lorazepam (Lorazepam 1 Mg Tab) 1 mg PO HS [facility] Stop: 10/06/24 21:59 Last Admin: 09/14/24 20:50 Dose: 1 mg Magnesium Hydroxide (Magnesium Hydroxide Susp 30 Ml Udc) 30 ml PO DAILY PRN PRN Reason: Constipation Stop: 10/04/24 14:11 Meloxicam (Meloxicam 7.5 Mg Tab) 15 mg PO DAILY [facility] Stop: 10/05/24 08:59 Last Admin: 09/15/24 08:35 Dose: 15 mg Metformin HCl (Metformin Hcl 500 Mg Tab) 1,000 mg PO BID17 [facility] Stop: 10/04/24 16:59 Last Admin: 09/15/24 08:35 Dose: 1,000 mg Miscellaneous (Remove Nicoderm Patch) 1 each N/A 2100 [facility] Stop: 10/05/24 20:59 Last Admin: 09/14/24 20:47 Dose: Not Given Multivitamins (Multivitamin Tab) 1 tab PO DAILY [facility] Stop: 10/05/24 08:59 Last Admin: 09/15/24 08:35 Dose: 1 tab Nicotine (Nicotine 21 Mg/24 Hr Tdsy) 1 patch TD QAM [facility] Stop: 10/05/24 09:44 Last Admin: 09/15/24 09:48 Dose: 1 patch Nicotine Polacrilex (Nicotine Polacrilex 2 Mg Gum) 1 piece MT Q2H PRN PRN Reason: smoking cessation Stop: 10/04/24 15:22 Last Admin: 09/12/24 12:37 Dose: 1 piece Paroxetine HCl (Paroxetine Hcl 10 Mg Tab) 30 mg PO DAILY [facility] Stop: 10/05/24 08:59 Last Admin: 09/15/24 08:36 Dose: 30 mg Polyethylene Glycol (Polyethylene (Miralax) 17 Gm Pack) 17 gm PO DAILY [facility] Stop: 10/05/24 08:59 Last Admin: 09/15/24 08:31 Dose: 17 gm Sennosides (Senna 8.6 Mg Tab) 8.6 mg PO Q2D PRN PRN Reason: constipation Stop: 10/04/24 15:30 Sodium Chloride (Sodium Chloride 0.65% Na Soln 45 Ml ([place])) 1 - 2 sprays NA PRN PRN PRN Reason: Nasal Dryness/Congestion Stop: 10/04/24 14:11 Vitamin D (Cholecalciferol 25 Mcg (1000 Units) Tab) 50 mcg PO QAM [facility] Stop: 10/05/24 08:59 Last Admin: 09/15/24 08:32 Dose: 50 mcg Mental Health & Subst Abuse Tx Psychiatrist Name of Psychiatrist: Haley PATEL Psychiatrist's Res Habilitation Assistant Name of Res Habilitation Assistant: Linda Morris Phone Number for Res Habilitation Assistant: [phone] Post Discharge Appointments Primary Care Physician Name Of Family Doctor/PCP: Dr. Deonte Martinez Primary Care Date of Future Appointment with PCP: 09/27/24 Time of Appointment with PCP: 2:20 PM Provider Appointment Comment: Arrive @ 205pm, isaac Flores. Check in via [employer]. Bring meds. (1) Psychosis Psychosis type: schizophrenia Schizophrenia type: paranoid schizophrenia Qualified Code(s): F20.0 - Paranoid schizophrenia
[2024-09-15] MEDS: GLYCOPYRROLATE 1 MG TAB PO SCH (20:47)
--- NOTE | 2024-09-16 15:43 | Psychiatric Progress Note ---
Date of Service September 16, 2024 Impression / Recommendations Impression REBA KELLY is a 69-year-old man who currently lives [facility], has a history of schizophrenia, recent subdural hematoma, HTN, Type II diabetes, HLD, BPH and was admitted on 09/04/24 14:12 on a 303 involuntary commitment for psychosis and disorganization (expiring 09/23/24). Diagnostically consistent with acute exacerbation of schizophrenia vs post TBI/subdural psychosis given recent fall and hematoma in July 2024. Medical team felt delirium unlikely and his confusion has lessened. Ongoing loosening associations, hyperreligious and paranoia delusions, disorganized behaviors at times, and auditory and visual hallucinations. He had been stable on clozapine for many years but seems to have decompensated in the setting of his recent fall. Given symptoms of hyperreligious beliefs, initial poor sleep and concern for psychomotor activation (suspected cause of his elevated CK on medical admission) possibility of schizoaffective disorder but would be atypical for first episode of dolores to show up at his age. rather suspect that recent bleed may have contributed to some increased disinhibition leading to odd behaviors, worsened psychosis and hyperreligious delusions. No signs to suggest seizure at this time nor while on the medical service but his risk for this is higher given recent subdural hematoma. Brain MRI showed no abnormal brain enhancements, some mild chronic small vessel ischemic change which could partially explain why his brain may now be more vulnerable to psychosis if a mild cognitive impairment process is also at play. UA normal, no reason to suspect UTI at this time. A: Patient continues to be disorganized. Independent with ADLs with prompting. Ongoing clozapine induced sialorrhea and will dose medication at night. MNPR due to recent disrobing, psychosis, disorganization Overall, I spent a total of 45 minutes on this case including meeting with the patient, reviewing the chart, nursing report, multidisciplinary team meeting, orders, and documentation. (1) Psychosis: (2) Schizophrenia: (3) Hypersexuality: (4) Auditory hallucinations: (5) Hyperlipidemia: (6) Type 2 diabetes mellitus: (7) Hypertension: Plan 09/16/2024: Clozapine to 400 mg at bedtime and discontinue a.m. dose 09/15/2024: Increase clozapine to 50 mg in the morning. Increase glycopyrrolate to 1.5 mg twice daily. 09/14/2024: Start Clozapine 25 mg in the morning 09/13/24: Continue medications and treatment plan 09/12/2024: Decrease clozapine to 350 mg at bedtime Start glycopyrrolate 1 mg twice daily Decrease haloperidol to 2.5 mg twice daily 09/11/2024: -Increase clozapine to 400mg HS 09/10/2024: -Increase clozapine to 350mg HS 09/09/2024: -Increase haldol back to 2.5mg TID -Increase ipratropium bromide 0.06% under the tongue to 3 sprays TID for sialorrhea -Increase clozapine to 300mg HS 09/08/2024: -Decrease haldol to 2.5mg HS -Discontinue topiramate 09/07/2024: -Decrease haldol to 2.5mg BID -Increase clozapine to 250mg HS 09/06/2024: -Increase Depakote ER to 500mg -Increase ipratropium bromide 0.06% under the tongue to 2 sprays TID -taper Topiramate to 25mg HS to reduce polypharmacy burden 09/05/2024: The patient was admitted to the [facility] ([facility] mental health unit) on q15 min checks (behavioral with suicide precautions) for safety. The patient will participate in group, recreational, and milieu therapies and will be offered additional individual and family sessions as clinically appropriate. -Continue psychiatric medications: * Clozapine 200mg HS (consider further dose titration) * Topiramate 25mg BID * Haldol 2.5mg TID * Ativan 1mg HS (goal to taper as sleep improves and stabilizes) -Adjust: * Paxil from 30mg BID to 30mg daily -Start: * Depakote ER 250mg HS -Clozapine level, fasting lipid panel, HBA1c tomorrow AM -Repeat EKG given his age and now on multiple medications that can impact QTc interval Inventory Assets Strengths: supportive living environment, cooperative Needs: safety and stabilization, medication adjustment, additional coping skills, increased outpatient services Suicide Risk Level Suicide Risk Level: Moderate (q15 min suicide checks) (denies SI but with increased hallucinations and delusions which are negatively impacting his mood and are distressing) Suicide Risk Level Comments: Risk Factors Assessment Male: Yes : Yes Do You Have Access To A Gun?: No Health Problems: Yes Mental Health Diagnoses: Yes Substance Use Disorders: No Previous Attempt: No Family History of Suicide: No Previous Psychiatric Hospitalization: Yes Hopelessness: No Protective Factors Assessment Druze Beliefs: Yes Good Rapport with Provider: Yes Interval History Identifying Information REBA KELLY is a 69-year-old man who currently lives [facility], has a history of schizophrenia, recent subdural hematoma, HTN, Type II diabetes, HLD, BPH and was admitted on 09/04/24 14:12 on a 303 involuntary commitment for psychosis and disorganization. Chief Complaint Psychosis, AMS Review of Systems Sleep Information Total Hours of Sleep: 7.75 Meal Information Percent Meal Consumed - Breakfast: 75 Percent Meal Consumed - Lunch: 90 Percent Meal Consumed - Dinner: 100 Nutrition Comment: Ate late Subjective Subjective Patient was seen & assessed and interval progress reviewed with treatment team nursing and social work Overnight slept 7.75 hours. Continues to be religiously preoccupied. Not sending notes to staff as frequently. Continues to have incontinence episodes. Eating well. On approach patient seen talking to himself. Having trouble maintaining a linear thought process. He says "sorry for the lamp". Rambling. Asking for vegetables for lunch. Says that "Jose Eric is insane". Able to follow commands and easily redirected. Physical Exam Mental Examination Appearance: Disheveled Eye Contact: Maintains Eye Contact Motor Behavior: Slowed and Weakness Speech: Soft and Disorganized Mood: Calm Affect: Blunted Thought Process: Disorganized, Loose Associations and Slowed Thinking Thought Content: Disorganized and Preoccupation Hallucinations: Auditory Insight: Poor Judgement: Poor Vital Signs (Past 24 Hours) Last Vital Signs Temp 37 C 09/16/24 06:20 Pulse 74 09/16/24 06:21 Resp 16 09/16/24 06:20 BP 138/82 09/16/24 06:21 Pulse Ox 98 09/15/24 20:21 O2 Del Method Room Air 09/15/24 20:21 Results & Data ([facility]) Laboratory Results Laboratory Results - last 24 hr 09/16/24 08:33 POC Glucose 101 H Current Inpatient Medications Current Inpatient Medications: Current Inpatient Medications Acetaminophen (Acetaminophen 325 Mg Tab) 650 mg PO Q4H PRN PRN Reason: Headache or Minor Fever Stop: 10/04/24 14:11 Al Hydrox/Mg Hydrox/Simethicone (Aluminum/Magnesium Susp 30 Ml Udc) 30 ml PO Q4H PRN PRN Reason: GI Upset Stop: 10/04/24 14:11 Atorvastatin Calcium (Atorvastatin 40 Mg Tab) 40 mg PO HS [facility] Stop: 10/04/24 21:59 Last Admin: 09/15/24 20:46 Dose: 40 mg Bismuth Subsalicylate (Bismuth Subsalicylate 262 Mg Chew) 2 tab PO Q30M PRN PRN Reason: Loose Stool/Diarrhea Stop: 10/04/24 14:11 Clozapine (Clozapine 100 Mg Tab) 400 mg PO HS [facility] Stop: 10/16/24 21:59 Cyanocobalamin (Cyanocobalamin (B-12) 100 Mcg Tablet) 100 mcg PO QAM [facility] Stop: 10/05/24 08:59 Last Admin: 09/16/24 09:12 Dose: 100 mcg Divalproex Sodium (Divalproex Extended Release 500 Mg Tab) 500 mg PO HS [facility] Stop: 10/06/24 21:59 Last Admin: 09/15/24 20:46 Dose: 500 mg Docusate Sodium (Docusate Sodium 100 Mg Cap) 100 mg PO BID [facility] Stop: 10/07/24 20:59 Last Admin: 09/16/24 09:10 Dose: 100 mg Glycopyrrolate (Glycopyrrolate 1 Mg Tab) 1.5 mg PO BID [facility] Stop: 10/15/24 20:59 Last Admin: 09/16/24 09:11 Dose: 1.5 mg Haloperidol (Haloperidol 5 Mg Tab) 5 mg PO DAILY PRN PRN Reason: psychosis Stop: 10/08/24 15:56 Last Admin: 09/10/24 11:11 Dose: 5 mg Haloperidol (Haloperidol 5 Mg Tab) 2.5 mg PO BID [facility] Stop: 10/13/24 08:59 Last Admin: 09/16/24 09:11 Dose: 2.5 mg Haloperidol Lactate (Haloperidol Lactate 5 Mg/Ml 1 Ml Vial) 5 mg IM BID PRN PRN Reason: agitation Stop: 10/04/24 15:34 Hydroxyzine HCl (Hydroxyzine Hcl 25 Mg Tab) 50 mg PO HSZ PRN PRN Reason: Insomnia Stop: 10/04/24 14:11 Last Admin: 09/09/24 00:25 Dose: 50 mg Hydroxyzine HCl (Hydroxyzine Hcl 25 Mg Tab) 25 mg PO Q4H PRN PRN Reason: Anxiety Stop: 10/04/24 14:11 Ipratropium [place] (Ipratropium [place] Nasal [place] 0.06% 15ml) 3 sprays SL TID [facility] Stop: 10/09/24 13:59 Last Admin: 09/16/24 13:50 Dose: 3 sprays Levothyroxine Sodium (Levothyroxine Sodium 25 Mcg Tablet) 25 mcg PO DAILYBB [facility] Stop: 10/05/24 07:59 Last Admin: 09/16/24 09:09 Dose: 25 mcg Lisinopril (Lisinopril 20 Mg Tab) 20 mg PO DAILY [facility] Stop: 10/05/24 08:59 Last Admin: 09/16/24 09:10 Dose: 20 mg Lorazepam (Lorazepam 2 Mg/1 Ml Vial) 1 mg IM BID PRN PRN Reason: Agitation Stop: 10/04/24 15:34 Lorazepam (Lorazepam 1 Mg Tab) 1 mg PO DAILY PRN PRN Reason: restlessness Stop: 10/06/24 02:07 Last Admin: 09/06/24 02:20 Dose: 1 mg Lorazepam (Lorazepam 1 Mg Tab) 1 mg PO HS [facility] Stop: 10/06/24 21:59 Last Admin: 09/15/24 20:44 Dose: 1 mg Magnesium Hydroxide (Magnesium Hydroxide Susp 30 Ml Udc) 30 ml PO DAILY PRN PRN Reason: Constipation Stop: 10/04/24 14:11 Meloxicam (Meloxicam 7.5 Mg Tab) 15 mg PO DAILY [facility] Stop: 10/05/24 08:59 Last Admin: 09/16/24 09:11 Dose: 15 mg Metformin HCl (Metformin Hcl 500 Mg Tab) 1,000 mg PO BID17 [facility] Stop: 10/04/24 16:59 Last Admin: 09/16/24 09:10 Dose: 1,000 mg Miscellaneous (Remove Nicoderm Patch) 1 each N/A 2100 [facility] Stop: 10/05/24 20:59 Last Admin: 09/15/24 20:48 Dose: 1 each Multivitamins (Multivitamin Tab) 1 tab PO DAILY [facility] Stop: 10/05/24 08:59 Last Admin: 09/16/24 09:10 Dose: 1 tab Nicotine (Nicotine 21 Mg/24 Hr Tdsy) 1 patch TD QAM [facility] Stop: 10/05/24 09:44 Last Admin: 09/16/24 09:15 Dose: 1 patch Nicotine Polacrilex (Nicotine Polacrilex 2 Mg Gum) 1 piece MT Q2H PRN PRN Reason: smoking cessation Stop: 10/04/24 15:22 Last Admin: 09/12/24 12:37 Dose: 1 piece Paroxetine HCl (Paroxetine Hcl 10 Mg Tab) 30 mg PO DAILY [facility] Stop: 10/05/24 08:59 Last Admin: 09/16/24 09:12 Dose: 30 mg Polyethylene Glycol (Polyethylene (Miralax) 17 Gm Pack) 17 gm PO DAILY [facility] Stop: 10/05/24 08:59 Last Admin: 09/16/24 09:14 Dose: 17 gm Sennosides (Senna 8.6 Mg Tab) 8.6 mg PO Q2D PRN PRN Reason: constipation Stop: 10/04/24 15:30 Sodium Chloride (Sodium Chloride 0.65% Na Soln 45 Ml ([place])) 1 - 2 sprays NA PRN PRN PRN Reason: Nasal Dryness/Congestion Stop: 10/04/24 14:11 Vitamin D (Cholecalciferol 25 Mcg (1000 Units) Tab) 50 mcg PO QAM [facility] Stop: 10/05/24 08:59 Last Admin: 09/16/24 09:09 Dose: 50 mcg Mental Health & Subst Abuse Tx Psychiatrist Name of Psychiatrist: Haley PATEL Psychiatrist's Churn Drill Operator Name of Churn Drill Operator: Linda Morris Phone Number for Churn Drill Operator: [phone] Post Discharge Appointments Primary Care Physician Name Of Family Doctor/PCP: Dr. Deonte Martinez Primary Care Date of Future Appointment with PCP: 09/27/24 Time of Appointment with PCP: 2:20 PM Provider Appointment Comment: Arrive @ 205pm, isaac Flores. Check in via [employer]ycle. Bring meds. (1) Psychosis Psychosis type: schizophrenia Schizophrenia type: paranoid schizophrenia Qualified Code(s): F20.0 - Paranoid schizophrenia
--- NOTE | 2024-09-17 12:43 | Psychiatric Progress Note ---
Date of Service September 17, 2024 Impression / Recommendations Impression REBA KELLY is a 69-year-old man who currently lives [facility], has a history of schizophrenia, recent subdural hematoma, HTN, Type II diabetes, HLD, BPH and was admitted on 09/04/24 14:12 on a 303 involuntary commitment for psychosis and disorganization (expiring 09/23/24). Diagnostically consistent with acute exacerbation of schizophrenia vs post TBI/subdural psychosis given recent fall and hematoma in July 2024. Medical team felt delirium unlikely and his confusion has lessened. Ongoing loosening associations, hyperreligious and paranoia delusions, disorganized behaviors at times, and auditory and visual hallucinations. He had been stable on clozapine for many years but seems to have decompensated in the setting of his recent fall. Given symptoms of hyperreligious beliefs, initial poor sleep and concern for psychomotor activation (suspected cause of his elevated CK on medical admission) possibility of schizoaffective disorder but would be atypical for first episode of dolores to show up at his age. rather suspect that recent bleed may have contributed to some increased disinhibition leading to odd behaviors, worsened psychosis and hyperreligious delusions. No signs to suggest seizure at this time nor while on the medical service but his risk for this is higher given recent subdural hematoma. Brain MRI showed no abnormal brain enhancements, some mild chronic small vessel ischemic change which could partially explain why his brain may now be more vulnerable to psychosis if a mild cognitive impairment process is also at play. UA normal, no reason to suspect UTI at this time. A: Orientation slightly improved today. Sialorrhea improved. Presenting more stable behaviors. Concern for ongoing psychosis and thought disorganization. MNPR due to recent disrobing, psychosis, disorganization Overall, I spent a total of 35 minutes on this case including meeting with the patient, reviewing the chart, nursing report, multidisciplinary team meeting, orders, and documentation. (1) Psychosis: (2) Schizophrenia: (3) Auditory hallucinations: (4) Sialorrhea: (5) Hypersexuality: (6) Hyperlipidemia: (7) Type 2 diabetes mellitus: (8) Hypertension: Plan 09/17/2024 Discontinue Haloperidol 09/16/2024: Clozapine to 400 mg at bedtime and discontinue a.m. dose 09/15/2024: Increase clozapine to 50 mg in the morning. Increase glycopyrrolate to 1.5 mg twice daily. 09/14/2024: Start Clozapine 25 mg in the morning 09/13/24: Continue medications and treatment plan 09/12/2024: Decrease clozapine to 350 mg at bedtime Start glycopyrrolate 1 mg twice daily Decrease haloperidol to 2.5 mg twice daily 09/11/2024: -Increase clozapine to 400mg HS 09/10/2024: -Increase clozapine to 350mg HS 09/09/2024: -Increase haldol back to 2.5mg TID -Increase ipratropium bromide 0.06% under the tongue to 3 sprays TID for sialorrhea -Increase clozapine to 300mg HS 09/08/2024: -Decrease haldol to 2.5mg HS -Discontinue topiramate 09/07/2024: -Decrease haldol to 2.5mg BID -Increase clozapine to 250mg HS 09/06/2024: -Increase Depakote ER to 500mg -Increase ipratropium bromide 0.06% under the tongue to 2 sprays TID -taper Topiramate to 25mg HS to reduce polypharmacy burden 09/05/2024: The patient was admitted to the [facility] ([facility] mental health unit) on q15 min checks (behavioral with suicide precautions) for safety. The patient will participate in group, recreational, and milieu therapies and will be offered additional individual and family sessions as clinically appropriate. -Continue psychiatric medications: * Clozapine 200mg HS (consider further dose titration) * Topiramate 25mg BID * Haldol 2.5mg TID * Ativan 1mg HS (goal to taper as sleep improves and stabilizes) -Adjust: * Paxil from 30mg BID to 30mg daily -Start: * Depakote ER 250mg HS -Clozapine level, fasting lipid panel, HBA1c tomorrow AM -Repeat EKG given his age and now on multiple medications that can impact QTc interval Inventory Assets Strengths: supportive living environment, cooperative Needs: safety and stabilization, medication adjustment, additional coping skills, increased outpatient services Suicide Risk Level Suicide Risk Level: Moderate (q15 min suicide checks) (denies SI but with increased hallucinations and delusions which are negatively impacting his mood and are distressing) Suicide Risk Level Comments: Risk Factors Assessment Male: Yes : Yes Do You Have Access To A Gun?: No Health Problems: Yes Mental Health Diagnoses: Yes Substance Use Disorders: No Previous Attempt: No Family History of Suicide: No Previous Psychiatric Hospitalization: Yes Hopelessness: No Protective Factors Assessment Taoism Beliefs: Yes Good Rapport with Provider: Yes Interval History Identifying Information REBA KELLY is a 69-year-old man who currently lives [facility], has a history of schizophrenia, recent subdural hematoma, HTN, Type II diabetes, HLD, BPH and was admitted on 09/04/24 14:12 on a 303 involuntary commitment for psychosis and disorganization. Chief Complaint Psychosis, AMS Review of Systems Sleep Information Total Hours of Sleep: 5.5 Meal Information Percent Meal Consumed - Breakfast: 100 Percent Meal Consumed - Lunch: 90 Percent Meal Consumed - Dinner: 25 Nutrition Comment: Ate late Subjective Subjective Patient was seen & assessed and interval progress reviewed with treatment team nursing and social work Nursing reports the drooling has improved. Has not been attending groups. At times hyperreligious. Has not been passing inappropriate notes to the staff. Slept 5.5 hours. On interview patient is noted not to have a sock or towel in his hand or mouth. No overt sialorrhea. He is alert and oriented to self, hospital name, year, believes it is "August". Says the voices are controlled. He asked me if I have any fireworks. Says he wants to bless me and make me birch. Physical Exam Mental Examination Appearance: Disheveled Eye Contact: Maintains Eye Contact Motor Behavior: Slowed and Weakness Speech: Soft and Disorganized Mood: Calm Affect: Blunted Thought Process: Disorganized, Loose Associations and Slowed Thinking Thought Content: Disorganized and Preoccupation Hallucinations: Auditory Insight: Poor Judgement: Poor Vital Signs (Past 24 Hours) Last Vital Signs Temp 37.2 C 09/17/24 06:20 Pulse 83 09/17/24 06:21 Resp 16 09/17/24 06:20 BP 156/93 H 09/17/24 06:21 Pulse Ox 96 09/16/24 20:03 O2 Del Method Room Air 09/16/24 20:03 Results & Data ([facility]) Current Inpatient Medications Current Inpatient Medications: Current Inpatient Medications Acetaminophen (Acetaminophen 325 Mg Tab) 650 mg PO Q4H PRN PRN Reason: Headache or Minor Fever Stop: 10/04/24 14:11 Al Hydrox/Mg Hydrox/Simethicone (Aluminum/Magnesium Susp 30 Ml Udc) 30 ml PO Q4H PRN PRN Reason: GI Upset Stop: 10/04/24 14:11 Atorvastatin Calcium (Atorvastatin 40 Mg Tab) 40 mg PO HS [facility] Stop: 10/04/24 21:59 Last Admin: 09/16/24 21:05 Dose: 40 mg Bismuth Subsalicylate (Bismuth Subsalicylate 262 Mg Chew) 2 tab PO Q30M PRN PRN Reason: Loose Stool/Diarrhea Stop: 10/04/24 14:11 Clozapine (Clozapine 100 Mg Tab) 400 mg PO HS [facility] Stop: 10/16/24 21:59 Last Admin: 09/16/24 21:05 Dose: 400 mg Cyanocobalamin (Cyanocobalamin (B-12) 100 Mcg Tablet) 100 mcg PO QAM [facility] Stop: 10/05/24 08:59 Last Admin: 09/17/24 09:01 Dose: 100 mcg Divalproex Sodium (Divalproex Extended Release 500 Mg Tab) 500 mg PO HS [facility] Stop: 10/06/24 21:59 Last Admin: 09/16/24 21:06 Dose: 500 mg Docusate Sodium (Docusate Sodium 100 Mg Cap) 100 mg PO BID [facility] Stop: 10/07/24 20:59 Last Admin: 09/17/24 09:02 Dose: 100 mg Glycopyrrolate (Glycopyrrolate 1 Mg Tab) 1.5 mg PO BID [facility] Stop: 10/15/24 20:59 Last Admin: 09/17/24 09:02 Dose: 1.5 mg Haloperidol (Haloperidol 5 Mg Tab) 5 mg PO DAILY PRN PRN Reason: psychosis Stop: 10/08/24 15:56 Last Admin: 09/10/24 11:11 Dose: 5 mg Haloperidol Lactate (Haloperidol Lactate 5 Mg/Ml 1 Ml Vial) 5 mg IM BID PRN PRN Reason: agitation Stop: 10/04/24 15:34 Hydroxyzine HCl (Hydroxyzine Hcl 25 Mg Tab) 50 mg PO HSZ PRN PRN Reason: Insomnia Stop: 10/04/24 14:11 Last Admin: 09/09/24 00:25 Dose: 50 mg Hydroxyzine HCl (Hydroxyzine Hcl 25 Mg Tab) 25 mg PO Q4H PRN PRN Reason: Anxiety Stop: 10/04/24 14:11 Ipratropium [place] (Ipratropium [place] Nasal [place] 0.06% 15ml) 3 sprays SL TID [facility] Stop: 10/09/24 13:59 Last Admin: 09/17/24 09:10 Dose: 3 sprays Levothyroxine Sodium (Levothyroxine Sodium 25 Mcg Tablet) 25 mcg PO DAILYBB [facility] Stop: 10/05/24 07:59 Last Admin: 09/17/24 09:01 Dose: 25 mcg Lisinopril (Lisinopril 20 Mg Tab) 20 mg PO DAILY [facility] Stop: 10/05/24 08:59 Last Admin: 09/17/24 09:04 Dose: 20 mg Lorazepam (Lorazepam 2 Mg/1 Ml Vial) 1 mg IM BID PRN PRN Reason: Agitation Stop: 10/04/24 15:34 Lorazepam (Lorazepam 1 Mg Tab) 1 mg PO DAILY PRN PRN Reason: restlessness Stop: 10/06/24 02:07 Last Admin: 09/06/24 02:20 Dose: 1 mg Lorazepam (Lorazepam 1 Mg Tab) 1 mg PO HS [facility] Stop: 10/06/24 21:59 Last Admin: 09/16/24 21:06 Dose: 1 mg Magnesium Hydroxide (Magnesium Hydroxide Susp 30 Ml Udc) 30 ml PO DAILY PRN PRN Reason: Constipation Stop: 10/04/24 14:11 Meloxicam (Meloxicam 7.5 Mg Tab) 15 mg PO DAILY [facility] Stop: 10/05/24 08:59 Last Admin: 09/17/24 09:04 Dose: 15 mg Metformin HCl (Metformin Hcl 500 Mg Tab) 1,000 mg PO BID17 [facility] Stop: 10/04/24 16:59 Last Admin: 09/17/24 09:04 Dose: 1,000 mg Miscellaneous (Remove Nicoderm Patch) 1 each N/A 2100 [facility] Stop: 10/05/24 20:59 Last Admin: 09/16/24 21:04 Dose: 1 each Multivitamins (Multivitamin Tab) 1 tab PO DAILY [facility] Stop: 10/05/24 08:59 Last Admin: 09/17/24 09:04 Dose: 1 tab Nicotine (Nicotine 21 Mg/24 Hr Tdsy) 1 patch TD QAM [facility] Stop: 10/05/24 09:44 Last Admin: 09/17/24 09:16 Dose: 1 patch Nicotine Polacrilex (Nicotine Polacrilex 2 Mg Gum) 1 piece MT Q2H PRN PRN Reason: smoking cessation Stop: 10/04/24 15:22 Last Admin: 09/16/24 22:49 Dose: 1 piece Paroxetine HCl (Paroxetine Hcl 10 Mg Tab) 30 mg PO DAILY [facility] Stop: 10/05/24 08:59 Last Admin: 09/17/24 09:04 Dose: 30 mg Polyethylene Glycol (Polyethylene (Miralax) 17 Gm Pack) 17 gm PO DAILY [facility] Stop: 10/05/24 08:59 Last Admin: 09/17/24 09:00 Dose: 17 gm Sennosides (Senna 8.6 Mg Tab) 8.6 mg PO Q2D PRN PRN Reason: constipation Stop: 10/04/24 15:30 Sodium Chloride (Sodium Chloride 0.65% Na Soln 45 Ml ([place])) 1 - 2 sprays NA PRN PRN PRN Reason: Nasal Dryness/Congestion Stop: 10/04/24 14:11 Vitamin D (Cholecalciferol 25 Mcg (1000 Units) Tab) 50 mcg PO QAM [facility] Stop: 10/05/24 08:59 Last Admin: 09/17/24 09:01 Dose: 50 mcg Mental Health & Subst Abuse Tx Psychiatrist Name of Psychiatrist: Haley PATEL Psychiatrist's Transportation Planning Engineer Name of Transportation Planning Engineer: Linda Morris Phone Number for Transportation Planning Engineer: [phone] Post Discharge Appointments Primary Care Physician Name Of Family Doctor/PCP: Dr. Deonte Martinez Primary Care Date of Future Appointment with PCP: 09/27/24 Time of Appointment with PCP: 2:20 PM Provider Appointment Comment: Arrive @ 205pm, isaac Flores. Check in via [employer]. Bring meds. (1) Psychosis Psychosis type: schizophrenia Schizophrenia type: paranoid schizophrenia Qualified Code(s): F20.0 - Paranoid schizophrenia
[2024-09-18 07:24] LABS: Hematocrit (blood only) 37.7 % (42.0-52.0); Hemoglobin 12.4 g/dl (14.0-18.0); Immature Granulocytes # (auto) 0.02 K/uL (0.01-0.20); Immature Granulocytes % (auto) 0.2 %; Mean Corpuscular Hemoglobin 30.0 pg (25.0-34.0); Mean Corpuscular Volume 91.1 fL (80.0-100.0); Platelet Count 200 K/uL (130-400); RDW Standard Deviation 40.3 fL (36.4-46.3); Red Blood Count 4.14 M/uL (4.70-6.10); White Blood Count 8.80 K/ul (4.8-10.8)
--- NOTE | 2024-09-18 13:13 | Psychiatric Progress Note ---
Date of Service September 18, 2024 Impression / Recommendations Impression REBA KELLY is a 69-year-old man who currently lives [facility], has a history of schizophrenia, recent subdural hematoma, HTN, Type II diabetes, HLD, BPH and was admitted on 09/04/24 14:12 on a 303 involuntary commitment for psychosis and disorganization (expiring 09/23/24). Diagnostically consistent with acute exacerbation of schizophrenia vs post TBI/subdural psychosis given recent fall and hematoma in July 2024. Medical team felt delirium unlikely and his confusion has lessened. Ongoing loosening associations, hyperreligious and paranoia delusions, disorganized behaviors at times, and auditory and visual hallucinations. He had been stable on clozapine for many years but seems to have decompensated in the setting of his recent fall. Given symptoms of hyperreligious beliefs, initial poor sleep and concern for psychomotor activation (suspected cause of his elevated CK on medical admission) possibility of schizoaffective disorder but would be atypical for first episode of dolores to show up at his age. rather suspect that recent bleed may have contributed to some increased disinhibition leading to odd behaviors, worsened psychosis and hyperreligious delusions. No signs to suggest seizure at this time nor while on the medical service but his risk for this is higher given recent subdural hematoma. Brain MRI showed no abnormal brain enhancements, some mild chronic small vessel ischemic change which could partially explain why his brain may now be more vulnerable to psychosis if a mild cognitive impairment process is also at play. UA normal, no reason to suspect UTI at this time. A: Orientation slightly improved today. Sialorrhea improved. Presenting more stable behaviors. Concern for ongoing psychosis and thought disorganization. ANC reviewed and within expected limits. MNPR due to recent disrobing, psychosis, disorganization Overall, I spent a total of 35 minutes on this case including meeting with the patient, reviewing the chart, nursing report, multidisciplinary team meeting, orders, and documentation. (1) Psychosis: (2) Schizophrenia: (3) Auditory hallucinations: (4) Sialorrhea: (5) Hypersexuality: (6) Hyperlipidemia: (7) Type 2 diabetes mellitus: (8) Hypertension: Plan 09/18/2024: Continue medications and treatment plan 09/17/2024 Discontinue Haloperidol 09/16/2024: Clozapine to 400 mg at bedtime and discontinue a.m. dose 09/15/2024: Increase clozapine to 50 mg in the morning. Increase glycopyrrolate to 1.5 mg twice daily. 09/14/2024: Start Clozapine 25 mg in the morning 09/13/24: Continue medications and treatment plan 09/12/2024: Decrease clozapine to 350 mg at bedtime Start glycopyrrolate 1 mg twice daily Decrease haloperidol to 2.5 mg twice daily 09/11/2024: -Increase clozapine to 400mg HS 09/10/2024: -Increase clozapine to 350mg HS 09/09/2024: -Increase haldol back to 2.5mg TID -Increase ipratropium bromide 0.06% under the tongue to 3 sprays TID for sialorrhea -Increase clozapine to 300mg HS 09/08/2024: -Decrease haldol to 2.5mg HS -Discontinue topiramate 09/07/2024: -Decrease haldol to 2.5mg BID -Increase clozapine to 250mg HS 09/06/2024: -Increase Depakote ER to 500mg -Increase ipratropium bromide 0.06% under the tongue to 2 sprays TID -taper Topiramate to 25mg HS to reduce polypharmacy burden 09/05/2024: The patient was admitted to the [facility] ([facility]) on q15 min checks (behavioral with suicide precautions) for safety. The patient will participate in group, recreational, and milieu therapies and will be offered additional individual and family sessions as clinically appropriate. -Continue psychiatric medications: * Clozapine 200mg HS (consider further dose titration) * Topiramate 25mg BID * Haldol 2.5mg TID * Ativan 1mg HS (goal to taper as sleep improves and stabilizes) -Adjust: * Paxil from 30mg BID to 30mg daily -Start: * Depakote ER 250mg HS -Clozapine level, fasting lipid panel, HBA1c tomorrow AM -Repeat EKG given his age and now on multiple medications that can impact QTc interval Inventory Assets Strengths: supportive living environment, cooperative Needs: safety and stabilization, medication adjustment, additional coping skills, increased outpatient services Suicide Risk Level Suicide Risk Level: Moderate (q15 min suicide checks) (denies SI but with increased hallucinations and delusions which are negatively impacting his mood and are distressing) Suicide Risk Level Comments: Risk Factors Assessment Male: Yes : Yes Do You Have Access To A Gun?: No Health Problems: Yes Mental Health Diagnoses: Yes Substance Use Disorders: No Previous Attempt: No Family History of Suicide: No Previous Psychiatric Hospitalization: Yes Hopelessness: No Protective Factors Assessment Holiness Beliefs: Yes Good Rapport with Provider: Yes Interval History Identifying Information REBA KELLY is a 69-year-old man who currently lives [facility], has a history of schizophrenia, recent subdural hematoma, HTN, Type II diabetes, HLD, BPH and was admitted on 09/04/24 14:12 on a 303 involuntary commitment for psychosis and disorganization. Chief Complaint Psychosis, AMS Review of Systems Sleep Information Total Hours of Sleep: 6.75 Meal Information Percent Meal Consumed - Breakfast: 100 Percent Meal Consumed - Lunch: 100 Percent Meal Consumed - Dinner: 95 Nutrition Comment: Ate late Subjective Subjective Patient was seen & assessed and interval progress reviewed with treatment team nursing and social work Overnight slept 6.5 hours. Drooling at times. Continues to have poor boundaries however less disruptive. Attending part of some groups. Having hypersexual thoughts at times. Urinary incontinence episodes. No agitation PRNs. On interview he reports a fair mood. Alert and oriented to se lf/place/year//September [address] [employer]. Denies hearing voices. Says that "Jose Eric is insane" and that he loves [place]. Physical Exam Mental Examination Appearance: Disheveled Eye Contact: Maintains Eye Contact Motor Behavior: Slowed and Weakness Speech: Soft and Disorganized Mood: Calm Affect: Blunted Thought Process: Disorganized, Loose Associations and Slowed Thinking Thought Content: Disorganized and Preoccupation Hallucinations: Auditory Insight: Poor Judgement: Poor Vital Signs (Past 24 Hours) Last Vital Signs Temp 36.4 C L 09/18/24 06:45 Pulse 66 09/18/24 06:45 Resp 16 09/18/24 06:45 BP 125/81 09/18/24 06:45 Pulse Ox 98 09/18/24 06:45 O2 Del Method Room Air 09/18/24 06:45 Results & Data ([facility]) Laboratory Results Laboratory Results - last 24 hr 09/18/24 09/18/24 06:59 07:00 WBC 8.80 RBC 4.14 L Hgb 12.4 L Hct 37.7 L MCV 91.1 MCH 30.0 MCHC 32.9 RDW Std Deviation 40.3 RDW Coeff of Kay 12.0 Plt Count 200 MPV 10.8 Immature Gran % (Auto) 0.2 Neut % (Auto) 56.4 Lymph % (Auto) 28.9 Trinity % (Auto) 8.4 Eos % (Auto) 5.5 Baso % (Auto) 0.6 Neut # (Auto) 4.97 Lymph # (Auto) 2.54 Trinity # (Auto) 0.74 H Eos # (Auto) 0.48 Baso # (Auto) 0.05 Immature Gran # (Auto) 0.02 POC Glucose 107 H Current Inpatient Medications Current Inpatient Medications: Current Inpatient Medications Acetaminophen (Acetaminophen 325 Mg Tab) 650 mg PO Q4H PRN PRN Reason: Headache or Minor Fever Stop: 10/04/24 14:11 Al Hydrox/Mg Hydrox/Simethicone (Aluminum/Magnesium Susp 30 Ml Udc) 30 ml PO Q4H PRN PRN Reason: GI Upset Stop: 10/04/24 14:11 Atorvastatin Calcium (Atorvastatin 40 Mg Tab) 40 mg PO HS [facility] Stop: 10/04/24 21:59 Last Admin: 09/17/24 20:33 Dose: 40 mg Bismuth Subsalicylate (Bismuth Subsalicylate 262 Mg Chew) 2 tab PO Q30M PRN PRN Reason: Loose Stool/Diarrhea Stop: 10/04/24 14:11 Clozapine (Clozapine 100 Mg Tab) 400 mg PO HS [facility] Stop: 10/16/24 21:59 Last Admin: 09/17/24 20:33 Dose: 400 mg Cyanocobalamin (Cyanocobalamin (B-12) 100 Mcg Tablet) 100 mcg PO QAM [facility] Stop: 10/05/24 08:59 Last Admin: 09/18/24 07:58 Dose: 100 mcg Divalproex Sodium (Divalproex Extended Release 500 Mg Tab) 500 mg PO HS [facility] Stop: 10/06/24 21:59 Last Admin: 09/17/24 20:31 Dose: 500 mg Docusate Sodium (Docusate Sodium 100 Mg Cap) 100 mg PO BID [facility] Stop: 10/07/24 20:59 Last Admin: 09/18/24 07:58 Dose: 100 mg Glycopyrrolate (Glycopyrrolate 1 Mg Tab) 1.5 mg PO BID [facility] Stop: 10/15/24 20:59 Last Admin: 09/18/24 07:58 Dose: 1.5 mg Haloperidol (Haloperidol 5 Mg Tab) 5 mg PO DAILY PRN PRN Reason: psychosis Stop: 10/08/24 15:56 Last Admin: 09/10/24 11:11 Dose: 5 mg Haloperidol Lactate (Haloperidol Lactate 5 Mg/Ml 1 Ml Vial) 5 mg IM BID PRN PRN Reason: agitation Stop: 10/04/24 15:34 Hydroxyzine HCl (Hydroxyzine Hcl 25 Mg Tab) 50 mg PO HSZ PRN PRN Reason: Insomnia Stop: 10/04/24 14:11 Last Admin: 09/09/24 00:25 Dose: 50 mg Hydroxyzine HCl (Hydroxyzine Hcl 25 Mg Tab) 25 mg PO Q4H PRN PRN Reason: Anxiety Stop: 10/04/24 14:11 Ipratropium Wren (Ipratropium Wren Nasal [place] 0.06% 15ml) 3 sprays SL TID [facility] Stop: 10/09/24 13:59 Last Admin: 09/18/24 07:59 Dose: 3 sprays Levothyroxine Sodium (Levothyroxine Sodium 25 Mcg Tablet) 25 mcg PO DAILYBB [facility] Stop: 10/05/24 07:59 Last Admin: 09/18/24 07:58 Dose: 25 mcg Lisinopril (Lisinopril 20 Mg Tab) 20 mg PO DAILY [facility] Stop: 10/05/24 08:59 Last Admin: 09/18/24 07:59 Dose: 20 mg Lorazepam (Lorazepam 2 Mg/1 Ml Vial) 1 mg IM BID PRN PRN Reason: Agitation Stop: 10/04/24 15:34 Lorazepam (Lorazepam 1 Mg Tab) 1 mg PO DAILY PRN PRN Reason: restlessness Stop: 10/06/24 02:07 Last Admin: 09/06/24 02:20 Dose: 1 mg Lorazepam (Lorazepam 1 Mg Tab) 1 mg PO HS [facility] Stop: 10/06/24 21:59 Last Admin: 09/17/24 20:35 Dose: 1 mg Magnesium Hydroxide (Magnesium Hydroxide Susp 30 Ml Udc) 30 ml PO DAILY PRN PRN Reason: Constipation Stop: 10/04/24 14:11 Meloxicam (Meloxicam 7.5 Mg Tab) 15 mg PO DAILY [facility] Stop: 10/05/24 08:59 Last Admin: 09/18/24 08:00 Dose: 15 mg Metformin HCl (Metformin Hcl 500 Mg Tab) 1,000 mg PO BID17 [facility] Stop: 10/04/24 16:59 Last Admin: 09/18/24 07:59 Dose: 1,000 mg Miscellaneous (Remove Nicoderm Patch) 1 each N/A 2100 [facility] Stop: 10/05/24 20:59 Last Admin: 09/17/24 20:32 Dose: 1 each Multivitamins (Multivitamin Tab) 1 tab PO DAILY [facility] Stop: 10/05/24 08:59 Last Admin: 09/18/24 07:59 Dose: 1 tab Nicotine (Nicotine 21 Mg/24 Hr Tdsy) 1 patch TD QAM [facility] Stop: 10/05/24 09:44 Last Admin: 09/18/24 08:00 Dose: 1 patch Nicotine Polacrilex (Nicotine Polacrilex 2 Mg Gum) 1 piece MT Q2H PRN PRN Reason: smoking cessation Stop: 10/04/24 15:22 Last Admin: 09/16/24 22:49 Dose: 1 piece Paroxetine HCl (Paroxetine Hcl 10 Mg Tab) 30 mg PO DAILY [facility] Stop: 10/05/24 08:59 Last Admin: 09/18/24 08:00 Dose: 30 mg Polyethylene Glycol (Polyethylene (Miralax) 17 Gm Pack) 17 gm PO DAILY [facility] Stop: 10/05/24 08:59 Last Admin: 09/18/24 08:00 Dose: 17 gm Sennosides (Senna 8.6 Mg Tab) 8.6 mg PO Q2D PRN PRN Reason: constipation Stop: 10/04/24 15:30 Sodium Chloride (Sodium Chloride 0.65% Na Soln 45 Ml ([place])) 1 - 2 sprays NA PRN PRN PRN Reason: Nasal Dryness/Congestion Stop: 10/04/24 14:11 Vitamin D (Cholecalciferol 25 Mcg (1000 Units) Tab) 50 mcg PO QAM [facility] Stop: 10/05/24 08:59 Last Admin: 09/18/24 07:58 Dose: 50 mcg Mental Health & Subst Abuse Tx Psychiatrist Name of Psychiatrist: Haley PATEL Psychiatrist's Can Closing Machine Tender Name of Can Closing Machine Tender: Linda Morris Phone Number for Can Closing Machine Tender: [phone] Post Discharge Appointments Primary Care Physician Name Of Family Doctor/PCP: Dr. Deonte Martinez Primary Care Date of Future Appointment with PCP: 09/27/24 Time of Appointment with PCP: 2:20 PM Provider Appointment Comment: Arrive @ 205pm, isaac Flores. Check in via kiosk. Bring meds. (1) Psychosis Psychosis type: schizophrenia Schizophrenia type: paranoid schizophrenia Qualified Code(s): F20.0 - Paranoid schizophrenia
--- NOTE | 2024-09-19 10:15 | Psychiatric Progress Note ---
Date of Service September 19, 2024 Impression / Recommendations Impression REBA KELLY is a 69-year-old man who currently lives [facility], has a history of schizophrenia, recent subdural hematoma, HTN, Type II diabetes, HLD, BPH and was admitted on 09/04/24 14:12 on a 303 involuntary commitment for psychosis and disorganization (expiring 09/23/24). Diagnostically consistent with acute exacerbation of schizophrenia vs post TBI/subdural psychosis given recent fall and hematoma in July 2024. Medical team felt delirium unlikely and his confusion has lessened. Ongoing loosening associations, hyperreligious and paranoia delusions, disorganized behaviors at times, and auditory and visual hallucinations. He had been stable on clozapine for many years but seems to have decompensated in the setting of his recent fall. Given symptoms of hyperreligious beliefs, initial poor sleep and concern for psychomotor activation (suspected cause of his elevated CK on medical admission) possibility of schizoaffective disorder but would be atypical for first episode of dolores to show up at his age. rather suspect that recent bleed may have contributed to some increased disinhibition leading to odd behaviors, worsened psychosis and hyperreligious delusions. No signs to suggest seizure at this time nor while on the medical service but his risk for this is higher given recent subdural hematoma. Brain MRI showed no abnormal brain enhancements, some mild chronic small vessel ischemic change which could partially explain why his brain may now be more vulnerable to psychosis if a mild cognitive impairment process is also at play. UA normal, no reason to suspect UTI at this time. A: Ongoing odd statements at times, frequently at the nurses station but less distressed by hallucinations and hypersexual delusions. Possible some of his reports to RNs is a form of "confessing" as an OCD compulsion which is a subtype sometimes seen in schizophrenia and could have been exacerbated following brain bleed in July. Given no current concern for dolores component to presentation will go back up on his prior to admission Paxil to previous dose of 30mg BID to see if this helps lessen these repeptitive behaviors. MNPR due to recent disrobing, psychosis, disorganization Overall, I spent a total of 40 minutes on this case including meeting with the patient, reviewing the chart, nursing report, orders, and documentation. (1) Psychosis: (2) Schizophrenia: (3) Auditory hallucinations: (4) Sialorrhea: (5) Hypersexuality: (6) Hyperlipidemia: (7) Type 2 diabetes mellitus: (8) Hypertension: Plan 09/19/2024: Increase Paxil to 30mg BID 09/18/2024: Continue medications and treatment plan 09/17/2024 Discontinue Haloperidol 09/16/2024: Clozapine to 400 mg at bedtime and discontinue a.m. dose 09/15/2024: Increase clozapine to 50 mg in the morning. Increase glycopyrrolate to 1.5 mg twice daily. 09/14/2024: Start Clozapine 25 mg in the morning 09/13/24: Continue medications and treatment plan 09/12/2024: Decrease clozapine to 350 mg at bedtime Start glycopyrrolate 1 mg twice daily Decrease haloperidol to 2.5 mg twice daily 09/11/2024: -Increase clozapine to 400mg HS 09/10/2024: -Increase clozapine to 350mg HS 09/09/2024: -Increase haldol back to 2.5mg TID -Increase ipratropium bromide 0.06% under the tongue to 3 sprays TID for sialorrhea -Increase clozapine to 300mg HS 09/08/2024: -Decrease haldol to 2.5mg HS -Discontinue topiramate 09/07/2024: -Decrease haldol to 2.5mg BID -Increase clozapine to 250mg HS 09/06/2024: -Increase Depakote ER to 500mg -Increase ipratropium bromide 0.06% under the tongue to 2 sprays TID -taper Topiramate to 25mg HS to reduce polypharmacy burden 09/05/2024: The patient was admitted to the [facility] ([facility] mental [facility] unit) on q15 min checks (behavioral with suicide precautions) for safety. The patient will participate in group, recreational, and milieu therapies and will be offered additional individual and family sessions as clinically appropriate. -Continue psychiatric medications: * Clozapine 200mg HS (consider further dose titration) * Topiramate 25mg BID * Haldol 2.5mg TID * Ativan 1mg HS (goal to taper as sleep improves and stabilizes) -Adjust: * Paxil from 30mg BID to 30mg daily -Start: * Depakote ER 250mg HS -Clozapine level, fasting lipid panel, HBA1c tomorrow AM -Repeat EKG given his age and now on multiple medications that can impact QTc interval Inventory Assets Strengths: supportive living environment, cooperative Needs: safety and stabilization, medication adjustment, additional coping skills, increased outpatient services Suicide Risk Level Suicide Risk Level: Moderate (q15 min suicide checks) (denies SI but with increased hallucinations and delusions which are negatively impacting his mood and are distressing) Suicide Risk Level Comments: Risk Factors Assessment Male: Yes : Yes Do You Have Access To A Gun?: No Health Problems: Yes Mental Health Diagnoses: Yes Substance Use Disorders: No Previous Attempt: No Family History of Suicide: No Previous Psychiatric Hospitalization: Yes Hopelessness: No Protective Factors Assessment Latter-Day Beliefs: Yes Good Rapport with Provider: Yes Interval History Identifying Information REBA KELLY is a 69-year-old man who currently lives [facility], has a history of schizophrenia, recent subdural hematoma, HTN, Type II diabetes, HLD, BPH and was admitted on 09/04/24 14:12 on a 303 involuntary commitment for psychosis and disorganization. Chief Complaint "Dr. De Leon is a beautiful lady". Review of Systems Sleep Information Total Hours of Sleep: 6 Meal Information Percent Meal Consumed - Breakfast: 100 Percent Meal Consumed - Lunch: 100 Percent Meal Consumed - Dinner: 75 Nutrition Comment: Ate late Subjective Subjective Patient was seen & assessed and interval progress reviewed with nursing. Still putting socks in his mouth at times but no excessive drooling. Eating well. Still making sikhism statements and at times nonsensical statements to the nurses. Today tells me he is not having any issues with his medications. Reflects on how his outpatient psychiatric provider is beautiful and that he gets physical exams by his primary care physician. Physical Exam Psychiatric Orientation: alert, oriented to place, oriented to time and cooperative Apperance: appropriately dressed and + disheveled Eye Contact: good eye contact Motor Behavior: no abnormal motor movements Speech: normal rate/rhythm/volume of speech (mumbled at times) Affect: + flat affect Mood: + anxious mood Thought Process: + tangential thought process and + looseness of associations Thought Content: + preoccupation and + delusions Suicidal Thoughts: denies suicidal thoughts, denies suicidal plan and denies suicidal intent Homicidal Thoughts: denies homicidal thoughts Hallucinations: + auditory hallucinations (seems to be lessening ); no visual hallucinations Cognition: recent memory grossly intact, remote memory grossly intact, attention grossly intact and language grossly intact Insight: + limited insight Judgment: + limited judgement Vital Signs (Past 24 Hours) Last Vital Signs Temp 36.3 C L 09/19/24 06:51 Pulse 70 09/19/24 06:51 Resp 16 09/19/24 06:51 BP 131/81 09/19/24 06:51 Pulse Ox 94 09/19/24 06:51 O2 Del Method Room Air 09/19/24 06:51 Results & Data ([facility]) Laboratory Results Laboratory Results - last 24 hr 09/19/24 06:45 POC Glucose 107 H Current Inpatient Medications Current Inpatient Medications: Current Inpatient Medications Acetaminophen (Acetaminophen 325 Mg Tab) 650 mg PO Q4H PRN PRN Reason: Headache or Minor Fever Stop: 10/04/24 14:11 Al Hydrox/Mg Hydrox/Simethicone (Aluminum/Magnesium Susp 30 Ml Udc) 30 ml PO Q4H PRN PRN Reason: GI Upset Stop: 10/04/24 14:11 Atorvastatin Calcium (Atorvastatin 40 Mg Tab) 40 mg PO HS BEATRICE Stop: 10/04/24 21:59 Last Admin: 09/18/24 21:19 Dose: 40 mg Bismuth Subsalicylate (Bismuth Subsalicylate 262 Mg Chew) 2 tab PO Q30M PRN PRN Reason: Loose Stool/Diarrhea Stop: 10/04/24 14:11 Clozapine (Clozapine 100 Mg Tab) 400 mg PO HS BEATRICE Stop: 10/16/24 21:59 Last Admin: 09/18/24 21:19 Dose: 400 mg Cyanocobalamin (Cyanocobalamin (B-12) 100 Mcg Tablet) 100 mcg PO QAM BEATRICE Stop: 10/05/24 08:59 Last Admin: 09/19/24 08:10 Dose: 100 mcg Divalproex Sodium (Divalproex Extended Release 500 Mg Tab) 500 mg PO HS BEATRICE Stop: 10/06/24 21:59 Last Admin: 09/18/24 21:20 Dose: 500 mg Docusate Sodium (Docusate Sodium 100 Mg Cap) 100 mg PO BID BEATRICE Stop: 10/07/24 20:59 Last Admin: 09/19/24 08:09 Dose: 100 mg Glycopyrrolate (Glycopyrrolate 1 Mg Tab) 1.5 mg PO BID BEATRICE Stop: 10/15/24 20:59 Last Admin: 09/19/24 08:10 Dose: 1.5 mg Haloperidol (Haloperidol 5 Mg Tab) 5 mg PO DAILY PRN PRN Reason: psychosis Stop: 10/08/24 15:56 Last Admin: 09/10/24 11:11 Dose: 5 mg Haloperidol Lactate (Haloperidol Lactate 5 Mg/Ml 1 Ml Vial) 5 mg IM BID PRN PRN Reason: agitation Stop: 10/04/24 15:34 Hydroxyzine HCl (Hydroxyzine Hcl 25 Mg Tab) 50 mg PO HSZ PRN PRN Reason: Insomnia Stop: 10/04/24 14:11 Last Admin: 09/09/24 00:25 Dose: 50 mg Hydroxyzine HCl (Hydroxyzine Hcl 25 Mg Tab) 25 mg PO Q4H PRN PRN Reason: Anxiety Stop: 10/04/24 14:11 Ipratropium Dixon (Ipratropium Dixon Nasal Oneco 0.06% 15ml) 3 sprays SL TID BEATRICE Stop: 10/09/24 13:59 Last Admin: 09/19/24 08:11 Dose: 3 sprays Levothyroxine Sodium (Levothyroxine Sodium 25 Mcg Tablet) 25 mcg PO DAILYBB BEATRICE Stop: 10/05/24 07:59 Last Admin: 09/19/24 08:10 Dose: 25 mcg Lisinopril (Lisinopril 20 Mg Tab) 20 mg PO DAILY BEATRICE Stop: 10/05/24 08:59 Last Admin: 09/19/24 08:09 Dose: 20 mg Lorazepam (Lorazepam 2 Mg/1 Ml Vial) 1 mg IM BID PRN PRN Reason: Agitation Stop: 10/04/24 15:34 Lorazepam (Lorazepam 1 Mg Tab) 1 mg PO DAILY PRN PRN Reason: restlessness Stop: 10/06/24 02:07 Last Admin: 09/06/24 02:20 Dose: 1 mg Lorazepam (Lorazepam 1 Mg Tab) 1 mg PO HS BEATRICE Stop: 10/06/24 21:59 Last Admin: 09/18/24 21:20 Dose: 1 mg Magnesium Hydroxide (Magnesium Hydroxide Susp 30 Ml Udc) 30 ml PO DAILY PRN PRN Reason: Constipation Stop: 10/04/24 14:11 Meloxicam (Meloxicam 7.5 Mg Tab) 15 mg PO DAILY BEATRICE Stop: 10/05/24 08:59 Last Admin: 09/19/24 08:10 Dose: 15 mg Metformin HCl (Metformin Hcl 500 Mg Tab) 1,000 mg PO BID17 BEATRICE Stop: 10/04/24 16:59 Last Admin: 09/19/24 08:09 Dose: 1,000 mg Miscellaneous (Remove Nicoderm Patch) 1 each N/A 2100 BEATRICE Stop: 10/05/24 20:59 Last Admin: 09/18/24 21:55 Dose: 1 each Multivitamins (Multivitamin Tab) 1 tab PO DAILY BEATRICE Stop: 10/05/24 08:59 Last Admin: 09/19/24 08:09 Dose: 1 tab Nicotine (Nicotine 21 Mg/24 Hr Tdsy) 1 patch TD QAM BEATRICE Stop: 10/05/24 09:44 Last Admin: 09/19/24 08:11 Dose: 1 patch Nicotine Polacrilex (Nicotine Polacrilex 2 Mg Gum) 1 piece MT Q2H PRN PRN Reason: smoking cessation Stop: 10/04/24 15:22 Last Admin: 09/19/24 06:53 Dose: 1 piece Paroxetine HCl (Paroxetine Hcl 10 Mg Tab) 30 mg PO DAILY BEATRICE Stop: 10/05/24 08:59 Last Admin: 09/19/24 08:09 Dose: 30 mg Polyethylene Glycol (Polyethylene (Miralax) 17 Gm Pack) 17 gm PO DAILY BEATRICE Stop: 10/05/24 08:59 Last Admin: 09/19/24 08:11 Dose: 17 gm Sennosides (Senna 8.6 Mg Tab) 8.6 mg PO Q2D PRN PRN Reason: constipation Stop: 10/04/24 15:30 Sodium Chloride (Sodium Chloride 0.65% Na Soln 45 Ml ([place])) 1 - 2 sprays NA PRN PRN PRN Reason: Nasal Dryness/Congestion Stop: 10/04/24 14:11 Vitamin D (Cholecalciferol 25 Mcg (1000 Units) Tab) 50 mcg PO QAM BEATRICE Stop: 10/05/24 08:59 Last Admin: 09/19/24 08:10 Dose: 50 mcg Mental Health & Subst Abuse Tx Psychiatrist Name of Psychiatrist: Haley PATEL Psychiatrist's Market Development Analyst Name of Market Development Analyst: Linda Morris Phone Number for Market Development Analyst: [phone] Post Discharge Appointments Primary Care Physician Name Of Family Doctor/PCP: Dr. Deonte Martinez Primary Care Date of Future Appointment with PCP: 09/27/24 Time of Appointment with PCP: 2:20 PM Provider Appointment Comment: Arrive @ 205pm, isaac Flores. Check in via kiosk. Bring meds. (1) Psychosis Psychosis type: schizophrenia Schizophrenia type: paranoid schizophrenia Qualified Code(s): F20.0 - Paranoid schizophrenia
--- NOTE | 2024-09-20 09:13 | Psychiatric Progress Note ---
Date of Service September 20, 2024 Impression / Recommendations Impression REBA KELLY is a 69-year-old man who currently lives [facility], has a history of schizophrenia, recent subdural hematoma, HTN, Type II diabetes, HLD, BPH and was admitted on 09/04/24 14:12 on a 303 involuntary commitment for psychosis and disorganization (expiring 09/23/24). Diagnostically consistent with acute exacerbation of schizophrenia vs post TBI/subdural psychosis given recent fall and hematoma in July 2024. Medical team felt delirium unlikely and his confusion has lessened. Ongoing loosening associations, hyperreligious and paranoia delusions, disorganized behaviors at times, and auditory and visual hallucinations. He had been stable on clozapine for many years but seems to have decompensated in the setting of his recent fall. Given symptoms of hyperreligious beliefs, initial poor sleep and concern for psychomotor activation (suspected cause of his elevated CK on medical admission) possibility of schizoaffective disorder but would be atypical for first episode of dolores to show up at his age. rather suspect that recent bleed may have contributed to some increased disinhibition leading to odd behaviors, worsened psychosis and hyperreligious delusions. No signs to suggest seizure at this time nor while on the medical service but his risk for this is higher given recent subdural hematoma. Brain MRI showed no abnormal brain enhancements, some mild chronic small vessel ischemic change which could partially explain why his brain may now be more vulnerable to psychosis if a mild cognitive impairment process is also at play. UA normal, no reason to suspect UTI at this time. A: Tolerating higher dose of Paxil, suspect he may be getting closer to his psychiatric baseline, asking for his supportive living home to visit to give better idea of his baseline compared to current presentation. No signs of excessive sedation from clozapine. He consents to further dose titration of clozapine to further target some of his hyperreligious delusions. MNPR due to recent disrobing, psychosis, disorganization Overall, I spent a total of 45 minutes on this case including meeting with the patient, reviewing the chart, nursing report, orders, and documentation. (1) Psychosis: (2) Schizophrenia: (3) Auditory hallucinations: (4) Sialorrhea: (5) Hypersexuality: (6) Hyperlipidemia: (7) Type 2 diabetes mellitus: (8) Hypertension: Plan 09/20/2024: Increase clozapine to 450mg HS. 09/19/2024: Increase Paxil to 30mg BID 09/18/2024: Continue medications and treatment plan 09/17/2024 Discontinue Haloperidol 09/16/2024: Clozapine to 400 mg at bedtime and discontinue a.m. dose 09/15/2024: Increase clozapine to 50 mg in the morning. Increase glycopyrrolate to 1.5 mg twice daily. 09/14/2024: Start Clozapine 25 mg in the morning 09/13/24: Continue medications and treatment plan 09/12/2024: Decrease clozapine to 350 mg at bedtime Start glycopyrrolate 1 mg twice daily Decrease haloperidol to 2.5 mg twice daily 09/11/2024: -Increase clozapine to 400mg HS 09/10/2024: -Increase clozapine to 350mg HS 09/09/2024: -Increase haldol back to 2.5mg TID -Increase ipratropium bromide 0.06% under the tongue to 3 sprays TID for sialorrhea -Increase clozapine to 300mg HS 09/08/2024: -Decrease haldol to 2.5mg HS -Discontinue topiramate 09/07/2024: -Decrease haldol to 2.5mg BID -Increase clozapine to 250mg HS 09/06/2024: -Increase Depakote ER to 500mg -Increase ipratropium bromide 0.06% under the tongue to 2 sprays TID -taper Topiramate to 25mg HS to reduce polypharmacy burden 09/05/2024: The patient was admitted to the [facility] ([facility] mental [facility] unit) on q15 min checks (behavioral with suicide precautions) for safety. The patient will participate in group, recreational, and milieu therapies and will be offered additional individual and family sessions as clinically appropriate. -Continue psychiatric medications: * Clozapine 200mg HS (consider further dose titration) * Topiramate 25mg BID * Haldol 2.5mg TID * Ativan 1mg HS (goal to taper as sleep improves and stabilizes) -Adjust: * Paxil from 30mg BID to 30mg daily -Start: * Depakote ER 250mg HS -Clozapine level, fasting lipid panel, HBA1c tomorrow AM -Repeat EKG given his age and now on multiple medications that can impact QTc interval Inventory Assets Strengths: supportive living environment, cooperative Needs: safety and stabilization, medication adjustment, additional coping skills, increased outpatient services Suicide Risk Level Suicide Risk Level: Moderate (q15 min suicide checks) (denies SI but with periods of hallucinations and delusions which can negatively impacting his mood ) Suicide Risk Level Comments: Risk Factors Assessment Male: Yes : Yes Do You Have Access To A Gun?: No Health Problems: Yes Mental Health Diagnoses: Yes Substance Use Disorders: No Previous Attempt: No Family History of Suicide: No Previous Psychiatric Hospitalization: Yes Hopelessness: No Protective Factors Assessment Orthodox Beliefs: Yes Good Rapport with Provider: Yes Interval History Identifying Information REBA KELLY is a 69-year-old man who currently lives [facility], has a history of schizophrenia, recent subdural hematoma, HTN, Type II diabetes, HLD, BPH and was admitted on 09/04/24 14:12 on a 303 involuntary commitment for psychosis and disorganization. Chief Complaint "I'd like to be born again". Review of Systems Sleep Information Total Hours of Sleep: 6 Meal Information Percent Meal Consumed - Breakfast: 100 Percent Meal Consumed - Lunch: 100 Percent Meal Consumed - Dinner: 100 Nutrition Comment: Subjective Subjective Patient was seen & assessed and interval progress reviewed with treatment team. His 303 expires on 09/23/2024. Not attending any groups. He asked for prn Vistaril last evening. No episodes of incontinence yesterday. Today fell on his knee but was able to get back up on his own and alerted nurses right away. Denies any new medication concerns, continues to come to the nurses station at times to report things such as having a recent physical exam or reflecting on baptist themes. Was able to play chess mid-day. Physical Exam Psychiatric Orientation: alert, oriented to place, oriented to time and cooperative Apperance: appropriately dressed and appropriately groomed Eye Contact: good eye contact Motor Behavior: no abnormal motor movements Speech: normal rate/rhythm/volume of speech (mumbled at times) Affect: + constricted affect Mood: + anxious mood Thought Process: + tangential thought process and + looseness of associations Thought Content: + preoccupation and + delusions Suicidal Thoughts: denies suicidal thoughts, denies suicidal plan and denies suicidal intent Homicidal Thoughts: denies homicidal thoughts Hallucinations: no auditory hallucinations and no visual hallucinations Cognition: recent memory grossly intact, remote memory grossly intact, attention grossly intact and language grossly intact Insight: + limited insight Judgment: + limited judgement Vital Signs (Past 24 Hours) Last Vital Signs Temp 36.5 C 09/20/24 06:26 Pulse 86 09/20/24 06:27 Resp 16 09/20/24 06:26 BP 124/82 09/20/24 06:27 Pulse Ox 97 09/19/24 20:05 O2 Del Method Room Air 09/19/24 20:05 Results & Data ([facility]) Laboratory Results Laboratory Results - last 24 hr 09/20/24 06:09 POC Glucose 106 H Current Inpatient Medications Current Inpatient Medications: Current Inpatient Medications Acetaminophen (Acetaminophen 325 Mg Tab) 650 mg PO Q4H PRN PRN Reason: Headache or Minor Fever Stop: 10/04/24 14:11 Al Hydrox/Mg Hydrox/Simethicone (Aluminum/Magnesium Susp 30 Ml Udc) 30 ml PO Q4H PRN PRN Reason: GI Upset Stop: 10/04/24 14:11 Atorvastatin Calcium (Atorvastatin 40 Mg Tab) 40 mg PO [facility] Stop: 10/04/24 21:59 Last Admin: 09/19/24 20:53 Dose: 40 mg Bismuth Subsalicylate (Bismuth Subsalicylate 262 Mg Chew) 2 tab PO Q30M PRN PRN Reason: Loose Stool/Diarrhea Stop: 10/04/24 14:11 Clozapine (Clozapine 100 Mg Tab) 400 mg PO [facility] Stop: 10/16/24 21:59 Last Admin: 09/19/24 20:53 Dose: 400 mg Cyanocobalamin (Cyanocobalamin (B-12) 100 Mcg Tablet) 100 mcg PO QAM [facility] Stop: 10/05/24 08:59 Last Admin: 09/19/24 08:10 Dose: 100 mcg Divalproex Sodium (Divalproex Extended Release 500 Mg Tab) 500 mg PO HS [facility] Stop: 10/06/24 21:59 Last Admin: 09/19/24 20:54 Dose: 500 mg Docusate Sodium (Docusate Sodium 100 Mg Cap) 100 mg PO BID [facility] Stop: 10/07/24 20:59 Last Admin: 09/19/24 20:51 Dose: 100 mg Glycopyrrolate (Glycopyrrolate 1 Mg Tab) 1.5 mg PO BID [facility] Stop: 10/15/24 20:59 Last Admin: 09/19/24 20:51 Dose: 1.5 mg Haloperidol (Haloperidol 5 Mg Tab) 5 mg PO DAILY PRN PRN Reason: psychosis Stop: 10/08/24 15:56 Last Admin: 09/10/24 11:11 Dose: 5 mg Haloperidol Lactate (Haloperidol Lactate 5 Mg/Ml 1 Ml Vial) 5 mg IM BID PRN PRN Reason: agitation Stop: 10/04/24 15:34 Hydroxyzine HCl (Hydroxyzine Hcl 25 Mg Tab) 50 mg PO HSZ PRN PRN Reason: Insomnia Stop: 10/04/24 14:11 Last Admin: 09/19/24 23:19 Dose: 50 mg Hydroxyzine HCl (Hydroxyzine Hcl 25 Mg Tab) 25 mg PO Q4H PRN PRN Reason: Anxiety Stop: 10/04/24 14:11 Ipratropium [place] (Ipratropium [place] Nasal [place] 0.06% 15ml) 3 sprays SL TID [facility] Stop: 10/09/24 13:59 Last Admin: 09/19/24 20:51 Dose: 3 sprays Levothyroxine Sodium (Levothyroxine Sodium 25 Mcg Tablet) 25 mcg PO DAILYBB [facility] Stop: 10/05/24 07:59 Last Admin: 09/19/24 08:10 Dose: 25 mcg Lisinopril (Lisinopril 20 Mg Tab) 20 mg PO DAILY [facility] Stop: 10/05/24 08:59 Last Admin: 09/19/24 08:09 Dose: 20 mg Lorazepam (Lorazepam 2 Mg/1 Ml Vial) 1 mg IM BID PRN PRN Reason: Agitation Stop: 10/04/24 15:34 Lorazepam (Lorazepam 1 Mg Tab) 1 mg PO DAILY PRN PRN Reason: restlessness Stop: 10/06/24 02:07 Last Admin: 09/06/24 02:20 Dose: 1 mg Lorazepam (Lorazepam 1 Mg Tab) 1 mg PO HS [facility] Stop: 10/06/24 21:59 Last Admin: 09/19/24 20:51 Dose: 1 mg Magnesium Hydroxide (Magnesium Hydroxide Susp 30 Ml Udc) 30 ml PO DAILY PRN PRN Reason: Constipation Stop: 10/04/24 14:11 Meloxicam (Meloxicam 7.5 Mg Tab) 15 mg PO DAILY [facility] Stop: 10/05/24 08:59 Last Admin: 09/19/24 08:10 Dose: 15 mg Metformin HCl (Metformin Hcl 500 Mg Tab) 1,000 mg PO BID17 [facility] Stop: 10/04/24 16:59 Last Admin: 09/19/24 08:09 Dose: 1,000 mg Miscellaneous (Remove Nicoderm Patch) 1 each N/A 2100 [facility] Stop: 10/05/24 20:59 Last Admin: 09/19/24 21:15 Dose: 1 each Multivitamins (Multivitamin Tab) 1 tab PO DAILY [facility] Stop: 10/05/24 08:59 Last Admin: 09/19/24 08:09 Dose: 1 tab Nicotine (Nicotine 21 Mg/24 Hr Tdsy) 1 patch TD QAM [facility] Stop: 10/05/24 09:44 Last Admin: 09/19/24 08:11 Dose: 1 patch Nicotine Polacrilex (Nicotine Polacrilex 2 Mg Gum) 1 piece MT Q2H PRN PRN Reason: smoking cessation Stop: 10/04/24 15:22 Last Admin: 09/19/24 19:59 Dose: 1 piece Paroxetine HCl (Paroxetine Hcl 10 Mg Tab) 30 mg PO BID [facility] Stop: 10/19/24 20:59 Last Admin: 09/19/24 20:53 Dose: 30 mg Polyethylene Glycol (Polyethylene (Miralax) 17 Gm Pack) 17 gm PO DAILY [facility] Stop: 10/05/24 08:59 Last Admin: 09/19/24 08:11 Dose: 17 gm Sennosides (Senna 8.6 Mg Tab) 8.6 mg PO Q2D PRN PRN Reason: constipation Stop: 10/04/24 15:30 Sodium Chloride (Sodium Chloride 0.65% Na Soln 45 Ml ([place])) 1 - 2 sprays NA PRN PRN PRN Reason: Nasal Dryness/Congestion Stop: 10/04/24 14:11 Vitamin D (Cholecalciferol 25 Mcg (1000 Units) Tab) 50 mcg PO QAM [facility] Stop: 10/05/24 08:59 Last Admin: 09/19/24 08:10 Dose: 50 mcg Mental Health & Subst Abuse Tx Psychiatrist Name of Psychiatrist: Haley PATEL Psychiatrist's [employer] Super[employer] Name of [employer] Supervisor: Linda Morris Phone Number for [employer] Supervisor: [phone] Post Discharge Appointments Primary Care Physician Name Of Family Doctor/PCP: Dr. Deonte Martinez Primary Care Date of Future Appointment with PCP: 09/27/24 Time of Appointment with PCP: 2:20 PM Provider Appointment Comment: Arrive @ 205pm, isaac Flores. Check in via kiosk. Bring meds. (1) Psychosis Psychosis type: schizophrenia Schizophrenia type: paranoid schizophrenia Qualified Code(s): F20.0 - Paranoid schizophrenia
--- NOTE | 2024-09-21 09:00 | Psychiatric Progress Note ---
Date of Service September 21, 2024 Impression / Recommendations Impression REBA KELLY is a 69-year-old man who currently lives [facility], has a history of schizophrenia, recent subdural hematoma, HTN, Type II diabetes, HLD, BPH and was admitted on 09/04/24 14:12 on a 303 involuntary commitment for psychosis and disorganization (expiring 09/23/24). Diagnostically consistent with acute exacerbation of schizophrenia vs post TBI/subdural psychosis given recent fall and hematoma in July 2024. Medical team felt delirium unlikely and his confusion has lessened. Ongoing loosening associations, hyperreligious and paranoia delusions, disorganized behaviors at times, and auditory and visual hallucinations. He had been stable on clozapine for many years but seems to have decompensated in the setting of his recent fall. Given symptoms of hyperreligious beliefs, initial poor sleep and concern for psychomotor activation (suspected cause of his elevated CK on medical admission) possibility of schizoaffective disorder but would be atypical for first episode of dolores to show up at his age. rather suspect that recent bleed may have contributed to some increased disinhibition leading to odd behaviors, worsened psychosis and hyperreligious delusions. No signs to suggest seizure at this time nor while on the medical service but his risk for this is higher given recent subdural hematoma. Brain MRI showed no abnormal brain enhancements, some mild chronic small vessel ischemic change which could partially explain why his brain may now be more vulnerable to psychosis if a mild cognitive impairment process is also at play. UA normal, no reason to suspect UTI at this time. A: Tolerating titration of clozapine, still with jew preoccupation but no longer with urinary incontinence and behaviors are more organized. Hallucinations seem to be significantly less. His personal long-term will be coming tomorrow to assess how close he is to his baseline. MNPR due to previous disrobing, psychosis, disorganization and need to be able to use bedside urinal Overall, I spent a total of 35 minutes on this case including meeting with the patient, reviewing the chart, nursing report, orders, and documentation. (1) Psychosis: (2) Schizophrenia: (3) Auditory hallucinations: (4) Sialorrhea: (5) Hypersexuality: (6) Hyperlipidemia: (7) Type 2 diabetes mellitus: (8) Hypertension: Plan 09/21/2024: Clozapine level tomorrow AM 09/20/2024: Increase clozapine to 450mg HS. 09/19/2024: Increase Paxil to 30mg BID 09/18/2024: Continue medications and treatment plan 09/17/2024 Discontinue Haloperidol 09/16/2024: Clozapine to 400 mg at bedtime and discontinue a.m. dose 09/15/2024: Increase clozapine to 50 mg in the morning. Increase glycopyrrolate to 1.5 mg twice daily. 09/14/2024: Start Clozapine 25 mg in the morning 09/13/24: Continue medications and treatment plan 09/12/2024: Decrease clozapine to 350 mg at bedtime Start glycopyrrolate 1 mg twice daily Decrease haloperidol to 2.5 mg twice daily 09/11/2024: -Increase clozapine to 400mg HS 09/10/2024: -Increase clozapine to 350mg HS 09/09/2024: -Increase haldol back to 2.5mg TID -Increase ipratropium bromide 0.06% under the tongue to 3 sprays TID for sialorrhea -Increase clozapine to 300mg HS 09/08/2024: -Decrease haldol to 2.5mg HS -Discontinue topiramate 09/07/2024: -Decrease haldol to 2.5mg BID -Increase clozapine to 250mg HS 09/06/2024: -Increase Depakote ER to 500mg -Increase ipratropium bromide 0.06% under the tongue to 2 sprays TID -taper Topiramate to 25mg HS to reduce polypharmacy burden 09/05/2024: The patient was admitted to the [facility]) on q15 min checks (behavioral with suicide precautions) for safety. The patient will participate in group, recreational, and milieu therapies and will be offered additional individual and family sessions as clinically appropriate. -Continue psychiatric medications: * Clozapine 200mg HS (consider further dose titration) * Topiramate 25mg BID * Haldol 2.5mg TID * Ativan 1mg HS (goal to taper as sleep improves and stabilizes) -Adjust: * Paxil from 30mg BID to 30mg daily -Start: * Depakote ER 250mg HS -Clozapine level, fasting lipid panel, HBA1c tomorrow AM -Repeat EKG given his age and now on multiple medications that can impact QTc interval Inventory Assets Strengths: supportive living environment, cooperative Needs: safety and stabilization, medication adjustment, additional coping skills, increased outpatient services Suicide Risk Level Suicide Risk Level: Moderate (q15 min suicide checks) (denies SI but with periods of hallucinations and delusions which can negatively impacting his mood ) Suicide Risk Level Comments: Risk Factors Assessment Male: Yes : Yes Do You Have Access To A Gun?: No Health Problems: Yes Mental Health Diagnoses: Yes Substance Use Disorders: No Previous Attempt: No Family History of Suicide: No Previous Psychiatric Hospitalization: Yes Hopelessness: No Protective Factors Assessment Presybeterian Beliefs: Yes Good Rapport with Provider: Yes Interval History Identifying Information REBA KELLY is a 69-year-old man who currently lives [facility], has a history of schizophrenia, recent subdural hematoma, HTN, Type II diabetes, HLD, BPH and was admitted on 09/04/24 14:12 on a 303 involuntary commitment for psychosis and disorganization. Chief Complaint "I'm insane right now, I have paranoid schizophrenia". Review of Systems Sleep Information Total Hours of Sleep: 7 Meal Information Percent Meal Consumed - Breakfast: 100 Percent Meal Consumed - Lunch: 50 Percent Meal Consumed - Dinner: 100 Subjective Subjective Patient was seen & assessed and interval progress reviewed with nursing and social work. Slept well and up this morning eating breakfast. No episodes of incontinence. Today tells me about his schizophrenia diagnosis but denies any current hallucinations. Tells me he admires me and comments on my appearance. Tells me he needs to confess and that he is Marcos and spends some time praying. Then asks for a banana. He denies any medication side effects, likes his current medications. Physical Exam Psychiatric Orientation: alert, oriented to place, oriented to time and cooperative Apperance: appropriately dressed and appropriately groomed Eye Contact: good eye contact Motor Behavior: no abnormal motor movements Speech: normal rate/rhythm/volume of speech (mumbled at times) Affect: + constricted affect Mood: + anxious mood Thought Process: + tangential thought process and + looseness of associations Thought Content: + delusions Suicidal Thoughts: denies suicidal thoughts, denies suicidal plan and denies suicidal intent Homicidal Thoughts: denies homicidal thoughts Hallucinations: no auditory hallucinations and no visual hallucinations Cognition: recent memory grossly intact, remote memory grossly intact, attention grossly intact and language grossly intact Insight: + limited insight Judgment: + limited judgement Vital Signs (Past 24 Hours) Last Vital Signs Temp 36.1 C L 09/21/24 06:21 Pulse 69 09/21/24 06:21 Resp 16 09/21/24 06:21 BP 127/75 09/21/24 06:21 Pulse Ox 93 09/21/24 06:21 O2 Del Method Room Air 09/21/24 06:21 Results & Data ([facility]) Laboratory Results Laboratory Results - last 24 hr 09/21/24 08:44 POC Glucose 105 H Current Inpatient Medications Current Inpatient Medications: Current Inpatient Medications Acetaminophen (Acetaminophen 325 Mg Tab) 650 mg PO Q4H PRN PRN Reason: Headache or Minor Fever Stop: 10/04/24 14:11 Al Hydrox/Mg Hydrox/Simethicone (Aluminum/Magnesium Susp 30 Ml Udc) 30 ml PO Q4H PRN PRN Reason: GI Upset Stop: 10/04/24 14:11 Atorvastatin Calcium (Atorvastatin 40 Mg Tab) 40 mg PO HS [facility]ATRICE Stop: 10/04/24 21:59 Last Admin: 09/20/24 20:52 Dose: 40 mg Bismuth Subsalicylate (Bismuth Subsalicylate 262 Mg Chew) 2 tab PO Q30M PRN PRN Reason: Loose Stool/Diarrhea Stop: 10/04/24 14:11 Clozapine (Clozapine 100 Mg Tab) 450 mg PO HS [facility]ATRICE Stop: 10/20/24 21:59 Last Admin: 09/20/24 20:52 Dose: 450 mg Cyanocobalamin (Cyanocobalamin (B-12) 100 Mcg Tablet) 100 mcg PO QAM [facility] Stop: 10/05/24 08:59 Last Admin: 09/20/24 09:02 Dose: 100 mcg Divalproex Sodium (Divalproex Extended Release 500 Mg Tab) 500 mg PO HS [facility]RICE Stop: 10/06/24 21:59 Last Admin: 09/20/24 20:53 Dose: 500 mg Docusate Sodium (Docusate Sodium 100 Mg Cap) 100 mg PO BID [facility]RICE Stop: 10/07/24 20:59 Last Admin: 09/20/24 20:49 Dose: 100 mg Glycopyrrolate (Glycopyrrolate 1 Mg Tab) 1.5 mg PO BID [facility]ATRICE Stop: 10/15/24 20:59 Last Admin: 09/20/24 20:50 Dose: 1.5 mg Haloperidol (Haloperidol 5 Mg Tab) 5 mg PO DAILY PRN PRN Reason: psychosis Stop: 10/08/24 15:56 Last Admin: 09/10/24 11:11 Dose: 5 mg Haloperidol Lactate (Haloperidol Lactate 5 Mg/Ml 1 Ml Vial) 5 mg IM BID PRN PRN Reason: agitation Stop: 10/04/24 15:34 Hydroxyzine HCl (Hydroxyzine Hcl 25 Mg Tab) 50 mg PO HSZ PRN PRN Reason: Insomnia Stop: 10/04/24 14:11 Last Admin: 09/19/24 23:19 Dose: 50 mg Hydroxyzine HCl (Hydroxyzine Hcl 25 Mg Tab) 25 mg PO Q4H PRN PRN Reason: Anxiety Stop: 10/04/24 14:11 Levothyroxine Sodium (Levothyroxine Sodium 25 Mcg Tablet) 25 mcg PO DAILYBB [facility] Stop: 10/05/24 07:59 Last Admin: 09/20/24 09:01 Dose: 25 mcg Lisinopril (Lisinopril 20 Mg Tab) 20 mg PO DAILY [facility]ATRICE Stop: 10/05/24 08:59 Last Admin: 09/20/24 09:04 Dose: 20 mg Lorazepam (Lorazepam 2 Mg/1 Ml Vial) 1 mg IM BID PRN PRN Reason: Agitation Stop: 10/04/24 15:34 Lorazepam (Lorazepam 1 Mg Tab) 1 mg PO DAILY PRN PRN Reason: restlessness Stop: 10/06/24 02:07 Last Admin: 09/06/24 02:20 Dose: 1 mg Lorazepam (Lorazepam 1 Mg Tab) 1 mg PO HS [facility] Stop: 10/06/24 21:59 Last Admin: 09/20/24 20:54 Dose: 1 mg Magnesium Hydroxide (Magnesium Hydroxide Susp 30 Ml Udc) 30 ml PO DAILY PRN PRN Reason: Constipation Stop: 10/04/24 14:11 Meloxicam (Meloxicam 7.5 Mg Tab) 15 mg PO DAILY [facility] Stop: 10/05/24 08:59 Last Admin: 09/20/24 09:05 Dose: 15 mg Metformin HCl (Metformin Hcl 500 Mg Tab) 1,000 mg PO BID17 [facility] Stop: 10/04/24 16:59 Last Admin: 09/20/24 09:06 Dose: 1,000 mg Miscellaneous (Remove Nicoderm Patch) 1 each N/A 2100 [facility] Stop: 10/05/24 20:59 Last Admin: 09/20/24 20:57 Dose: 1 each Multivitamins (Multivitamin Tab) 1 tab PO DAILY [facility] Stop: 10/05/24 08:59 Last Admin: 09/20/24 09:06 Dose: 1 tab Nicotine (Nicotine 21 Mg/24 Hr Tdsy) 1 patch TD QAM [facility] Stop: 10/05/24 09:44 Last Admin: 09/20/24 09:43 Dose: 1 patch Nicotine Polacrilex (Nicotine Polacrilex 2 Mg Gum) 1 piece MT Q2H PRN PRN Reason: smoking cessation Stop: 10/04/24 15:22 Last Admin: 09/20/24 20:10 Dose: 1 piece Paroxetine HCl (Paroxetine Hcl 10 Mg Tab) 30 mg PO BID [facility] Stop: 10/19/24 20:59 Last Admin: 09/20/24 20:51 Dose: 30 mg Polyethylene Glycol (Polyethylene (Miralax) 17 Gm Pack) 17 gm PO DAILY [facility] Stop: 10/05/24 08:59 Last Admin: 09/20/24 09:01 Dose: 17 gm Sennosides (Senna 8.6 Mg Tab) 8.6 mg PO Q2D PRN PRN Reason: constipation Stop: 10/04/24 15:30 Sodium Chloride (Sodium Chloride 0.65% Na Soln 45 Ml ([employer])) 1 - 2 sprays NA PRN PRN PRN Reason: Nasal Dryness/Congestion Stop: 10/04/24 14:11 Vitamin D (Cholecalciferol 25 Mcg (1000 Units) Tab) 50 mcg PO QAM [facility] Stop: 10/05/24 08:59 Last Admin: 09/20/24 09:02 Dose: 50 mcg Mental Health & Subst Abuse Tx Psychiatrist Name of Psychiatrist: Haley Mazariegos (on maternity leave) will be seen by Dr. Juarez at [facility] Psychiatrist's Date Of Appointment With Psychiatric Provider: 09/27/24 Time of Appointment with Psychiatrist: 1:45PM Psychiatric Appointment Comment: [address] [place] [id number] [employer] Name of Gas Plumbing Inspector: Linda Morris Phone Number for Gas Plumbing Inspector: [phone] Post Discharge Appointments Primary Care Physician Name Of Family Doctor/PCP: Dr. Deonte Martinez - [address] [place] [address] Primary Care Date of Future Appointment with PCP: 09/28/24 Time of Appointment with PCP: 8AM Provider Appointment Comment: Arrive @ 745AM, will be seen by ROSE Espinal. Check in via [employer]. Bring meds. Contact Information Discharge Discharge [address]: [address] [place] [address] [place] [address] (1) Psychosis Psychosis type: schizophrenia Schizophrenia type: paranoid schizophrenia Qualified Code(s): F20.0 - Paranoid schizophrenia
--- NOTE | 2024-09-22 08:44 | Psychiatric Progress Note ---
Date of Service September 22, 2024 Impression / Recommendations Impression REBA KELLY is a 69-year-old man who currently lives [facility], has a history of schizophrenia, recent subdural hematoma, HTN, Type II diabetes, HLD, BPH and was admitted on 09/04/24 14:12 on a 303 involuntary commitment for psychosis and disorganization (expiring 09/23/24). Diagnostically consistent with acute exacerbation of schizophrenia vs post TBI/subdural psychosis given recent fall and hematoma in July 2024. Medical team felt delirium unlikely and his confusion has lessened. Ongoing loosening associations, hyperreligious and paranoia delusions, disorganized behaviors at times, and auditory and visual hallucinations. He had been stable on clozapine for many years but seems to have decompensated in the setting of his recent fall. Given symptoms of hyperreligious beliefs, initial poor sleep and concern for psychomotor activation (suspected cause of his elevated CK on medical admission) possibility of schizoaffective disorder but would be atypical for first episode of dolores to show up at his age. rather suspect that recent bleed may have contributed to some increased disinhibition leading to odd behaviors, worsened psychosis and hyperreligious delusions. No signs to suggest seizure at this time nor while on the medical service but his risk for this is higher given recent subdural hematoma. Brain MRI showed no abnormal brain enhancements, some mild chronic small vessel ischemic change which could partially explain why his brain may now be more vulnerable to psychosis if a mild cognitive impairment process is also at play. UA normal, no reason to suspect UTI at this time. A: Ongoing poor sleep despite increasing clozapine though did fall again overnight and had incontinence presumably while asleep or just after waking. Given this will titrate Depakote to see if this helps with sleep and hyperreligious beliefs. Orthostatic vitals given recent falls. Will involve PT to see if further strength work would be beneficial or if gait changes are contributing to his falls. Clozapine level pending. MNPR due to previous disrobing, psychosis, disorganization and need to be able to use bedside urinal Overall, I spent a total of 45 minutes on this case including meeting with the patient, reviewing the chart, nursing report, orders, and documentation. (1) Psychosis: (2) Schizophrenia: (3) Auditory hallucinations: (4) Sialorrhea: (5) Hypersexuality: (6) Hyperlipidemia: (7) Type 2 diabetes mellitus: (8) Hypertension: Plan 09/22/2024: -Increase Depakote ER to 1000mg HS -Discontinue Ativan HS scheduled, adjust to prn in case contributing to falls -Orthostatic vitals BID -PT consult 09/21/2024: Clozapine level tomorrow AM 09/20/2024: Increase clozapine to 450mg HS. 09/19/2024: Increase Paxil to 30mg BID 09/18/2024: Continue medications and treatment plan 09/17/2024 Discontinue Haloperidol 09/16/2024: Clozapine to 400 mg at bedtime and discontinue a.m. dose 09/15/2024: Increase clozapine to 50 mg in the morning. Increase glycopyrrolate to 1.5 mg twice daily. 09/14/2024: Start Clozapine 25 mg in the morning 09/13/24: Continue medications and treatment plan 09/12/2024: Decrease clozapine to 350 mg at bedtime Start glycopyrrolate 1 mg twice daily Decrease haloperidol to 2.5 mg twice daily 09/11/2024: -Increase clozapine to 400mg HS 09/10/2024: -Increase clozapine to 350mg HS 09/09/2024: -Increase haldol back to 2.5mg TID -Increase ipratropium bromide 0.06% under the tongue to 3 sprays TID for sialorrhea -Increase clozapine to 300mg HS 09/08/2024: -Decrease haldol to 2.5mg HS -Discontinue topiramate 09/07/2024: -Decrease haldol to 2.5mg BID -Increase clozapine to 250mg HS 09/06/2024: -Increase Depakote ER to 500mg -Increase ipratropium bromide 0.06% under the tongue to 2 sprays TID -taper Topiramate to 25mg HS to reduce polypharmacy burden 09/05/2024: The patient was admitted to the [facility] ([facility] mental health unit) on q15 min checks (behavioral with suicide precautions) for safety. The patient will participate in group, recreational, and milieu therapies and will be offered additional individual and family sessions as clinically appropriate. -Continue psychiatric medications: * Clozapine 200mg HS (consider further dose titration) * Topiramate 25mg BID * Haldol 2.5mg TID * Ativan 1mg HS (goal to taper as sleep improves and stabilizes) -Adjust: * Paxil from 30mg BID to 30mg daily -Start: * Depakote ER 250mg HS -Clozapine level, fasting lipid panel, HBA1c tomorrow AM -Repeat EKG given his age and now on multiple medications that can impact QTc interval Inventory Assets Strengths: supportive living environment, cooperative Needs: safety and stabilization, medication adjustment, additional coping skills, increased outpatient services Suicide Risk Level Suicide Risk Level: Moderate (q15 min suicide checks) (denies SI but with periods of hallucinations and delusions which can negatively impacting his mood ) Suicide Risk Level Comments: Risk Factors Assessment Male: Yes : Yes Do You Have Access To A Gun?: No Health Problems: Yes Mental Health Diagnoses: Yes Substance Use Disorders: No Previous Attempt: No Family History of Suicide: No Previous Psychiatric Hospitalization: Yes Hopelessness: No Protective Factors Assessment Advent Beliefs: Yes Good Rapport with Provider: Yes Interval History Identifying Information REBA KELLY is a 69-year-old man who currently lives [facility], has a history of schizophrenia, recent subdural hematoma, HTN, Type II diabetes, HLD, BPH and was admitted on 09/04/24 14:12 on a 303 involuntary commitment for psychosis and disorganization. Chief Complaint "Can you get me up at 7am tomorrow, I'm insane". Review of Systems Sleep Information Total Hours of Sleep: 4.5 Meal Information Percent Meal Consumed - Breakfast: 100 Percent Meal Consumed - Lunch: 100 Percent Meal Consumed - Dinner: 100 Subjective Subjective Patient was seen & assessed and interval progress reviewed with treatment team. He had a fall last night while reaching for a magazine and slipped. Landed on his knee, did not hit his head. Had an episode of urinary incontinence last night but none during the day. Taking a shower this morning. Today speaking about crucifixion and only minimally tolerated meeting with Dayana from [facility]. Tells me he'd like to be woken up early tomorrow and when asked why states "because I'm insane". Then asks to bless me and compliments my eye color. He denies any medication side effects. Physical Exam Psychiatric Orientation: alert, oriented to place, oriented to time and cooperative Apperance: appropriately dressed and appropriately groomed Eye Contact: good eye contact Motor Behavior: no abnormal motor movements Speech: normal rate/rhythm/volume of speech (mumbled at times) Affect: + constricted affect Mood: + anxious mood Thought Process: + tangential thought process and + looseness of associations Thought Content: + delusions Suicidal Thoughts: denies suicidal thoughts, denies suicidal plan and denies suicidal intent Homicidal Thoughts: denies homicidal thoughts Hallucinations: no auditory hallucinations and no visual hallucinations Cognition: recent memory grossly intact, remote memory grossly intact, attention grossly intact and language grossly intact Insight: + limited insight Judgment: + limited judgement Vital Signs (Past 24 Hours) Last Vital Signs Temp 36.1 C L 09/22/24 04:52 Pulse 87 09/22/24 04:52 Resp 16 09/22/24 04:52 BP 177/82 H 09/22/24 04:52 Pulse Ox 96 09/22/24 04:52 O2 Del Method Room Air 09/22/24 04:52 Results & Data ([facility]) Laboratory Results Laboratory Results - last 24 hr 09/21/24 09/22/24 09/22/24 08:44 07:56 08:38 POC Glucose 105 H 111 H Clozapine Pending Norclozapine Pending Current Inpatient Medications Current Inpatient Medications: Current Inpatient Medications Acetaminophen (Acetaminophen 325 Mg Tab) 650 mg PO Q4H PRN PRN Reason: Headache or Minor Fever Stop: 10/04/24 14:11 Al Hydrox/Mg Hydrox/Simethicone (Aluminum/Magnesium Susp 30 Ml Udc) 30 ml PO Q4H PRN PRN Reason: GI Upset Stop: 10/04/24 14:11 Atorvastatin Calcium (Atorvastatin 40 Mg Tab) 40 mg PO HS BEATRICE Stop: 10/04/24 21:59 Last Admin: 09/21/24 20:29 Dose: 40 mg Bismuth Subsalicylate (Bismuth Subsalicylate 262 Mg Chew) 2 tab PO Q30M PRN PRN Reason: Loose Stool/Diarrhea Stop: 10/04/24 14:11 Clozapine (Clozapine 100 Mg Tab) 450 mg PO HS BEATRICE Stop: 10/20/24 21:59 Last Admin: 09/21/24 20:29 Dose: 450 mg Cyanocobalamin (Cyanocobalamin (B-12) 100 Mcg Tablet) 100 mcg PO QAM BEATRICE Stop: 10/05/24 08:59 Last Admin: 09/21/24 09:14 Dose: 100 mcg Divalproex Sodium (Divalproex Extended Release 500 Mg Tab) 500 mg PO HS BEATRICE Stop: 10/06/24 21:59 Last Admin: 09/21/24 20:28 Dose: 500 mg Docusate Sodium (Docusate Sodium 100 Mg Cap) 100 mg PO BID BEATRICE Stop: 10/07/24 20:59 Last Admin: 09/21/24 20:29 Dose: 100 mg Glycopyrrolate (Glycopyrrolate 1 Mg Tab) 1.5 mg PO BID BEATRICE Stop: 10/15/24 20:59 Last Admin: 09/21/24 20:28 Dose: 1.5 mg Haloperidol (Haloperidol 5 Mg Tab) 5 mg PO DAILY PRN PRN Reason: psychosis Stop: 10/08/24 15:56 Last Admin: 09/10/24 11:11 Dose: 5 mg Haloperidol Lactate (Haloperidol Lactate 5 Mg/Ml 1 Ml Vial) 5 mg IM BID PRN PRN Reason: agitation Stop: 10/04/24 15:34 Hydroxyzine HCl (Hydroxyzine Hcl 25 Mg Tab) 50 mg PO HSZ PRN PRN Reason: Insomnia Stop: 10/04/24 14:11 Last Admin: 09/19/24 23:19 Dose: 50 mg Hydroxyzine HCl (Hydroxyzine Hcl 25 Mg Tab) 25 mg PO Q4H PRN PRN Reason: Anxiety Stop: 10/04/24 14:11 Levothyroxine Sodium (Levothyroxine Sodium 25 Mcg Tablet) 25 mcg PO DAILYBB [facility] Stop: 10/05/24 07:59 Last Admin: 09/21/24 09:13 Dose: 25 mcg Lisinopril (Lisinopril 20 Mg Tab) 20 mg PO DAILY BEATRICE Stop: 10/05/24 08:59 Last Admin: 09/21/24 09:41 Dose: 20 mg Lorazepam (Lorazepam 2 Mg/1 Ml Vial) 1 mg IM BID PRN PRN Reason: Agitation Stop: 10/04/24 15:34 Lorazepam (Lorazepam 1 Mg Tab) 1 mg PO DAILY PRN PRN Reason: restlessness Stop: 10/06/24 02:07 Last Admin: 09/06/24 02:20 Dose: 1 mg Lorazepam (Lorazepam 1 Mg Tab) 1 mg PO HS [facility] Stop: 10/06/24 21:59 Last Admin: 09/21/24 20:28 Dose: 1 mg Magnesium Hydroxide (Magnesium Hydroxide Susp 30 Ml Udc) 30 ml PO DAILY PRN PRN Reason: Constipation Stop: 10/04/24 14:11 Meloxicam (Meloxicam 7.5 Mg Tab) 15 mg PO DAILY BEATRICE Stop: 10/05/24 08:59 Last Admin: 09/21/24 09:17 Dose: 15 mg Metformin HCl (Metformin Hcl 500 Mg Tab) 1,000 mg PO BID17 BEATRICE Stop: 10/04/24 16:59 Last Admin: 09/21/24 18:12 Dose: 1,000 mg Miscellaneous (Remove Nicoderm Patch) 1 each N/A 2100 BEATRICE Stop: 10/05/24 20:59 Last Admin: 09/21/24 21:29 Dose: 1 each Multivitamins (Multivitamin Tab) 1 tab PO DAILY BEATRICE Stop: 10/05/24 08:59 Last Admin: 09/21/24 09:19 Dose: 1 tab Nicotine (Nicotine 21 Mg/24 Hr Tdsy) 1 patch TD QAM BEATRICE Stop: 10/05/24 09:44 Last Admin: 09/21/24 09:19 Dose: 1 patch Nicotine Polacrilex (Nicotine Polacrilex 2 Mg Gum) 1 piece MT Q2H PRN PRN Reason: smoking cessation Stop: 10/04/24 15:22 Last Admin: 09/21/24 18:11 Dose: 1 piece Paroxetine HCl (Paroxetine Hcl 10 Mg Tab) 30 mg PO BID BEATRICE Stop: 10/19/24 20:59 Last Admin: 09/21/24 20:28 Dose: 30 mg Polyethylene Glycol (Polyethylene (Miralax) 17 Gm Pack) 17 gm PO DAILY BEATRICE Stop: 10/05/24 08:59 Last Admin: 09/21/24 09:19 Dose: 17 gm Sennosides (Senna 8.6 Mg Tab) 8.6 mg PO Q2D PRN PRN Reason: constipation Stop: 10/04/24 15:30 Sodium Chloride (Sodium Chloride 0.65% Na Soln 45 Ml ([place])) 1 - 2 sprays NA PRN PRN PRN Reason: Nasal Dryness/Congestion Stop: 10/04/24 14:11 Vitamin D (Cholecalciferol 25 Mcg (1000 Units) Tab) 50 mcg PO QAM BEATRICE Stop: 10/05/24 08:59 Last Admin: 09/21/24 09:14 Dose: 50 mcg Mental Health & Subst Abuse Tx Psychiatrist Name of Psychiatrist: Haley Delilah (on maternity leave) will be seen by Dr. Juarez at [facility] Psychiatrist's Date Of Appointment With Psychiatric Provider: 09/27/24 Time of Appointment with Psychiatrist: 1:45PM Psychiatric Appointment Comment: [address] [place] [address] ROSE Palma [id number] Machine Hose Cutter Name of Machine Hose Cutter: Linda Morris Phone Number for Machine Hose Cutter: [phone] Post Discharge Appointments Primary Care Physician Name Of Family Doctor/PCP: Dr. Deonte Martinez - [address] [place] [address] Primary Care Date of Future Appointment with PCP: 09/28/24 Time of Appointment with PCP: 8AM Provider Appointment Comment: Arrive @ 745AM, will be seen by ROSE Espinal. Check in via [employer]. [facility]. Contact Information Discharge Discharge Address: [address] [place] [address] [place] [address] (1) Psychosis Psychosis type: schizophrenia Schizophrenia type: paranoid schizophrenia Qualified Code(s): F20.0 - Paranoid schizophrenia
[2024-09-22] MEDS ORDERED: LORazepam 1 MG TAB PO PRN (16:14)
[2024-09-22] MEDS: DIVALPROEX EXTENDED RELEASE 500 MG TAB PO SCH (21:03)
--- NOTE | 2024-09-23 08:51 | Psychiatric Progress Note ---
Date of Service September 23, 2024 Impression / Recommendations Impression REBA KELLY is a 69-year-old man who currently lives [facility], has a history of schizophrenia, recent subdural hematoma, HTN, Type II diabetes, HLD, BPH and was admitted on 09/04/24 14:12 on a 303 involuntary commitment for psychosis and disorganization and now on a 304 commitment granted on 09/23/2024. Diagnostically consistent with acute exacerbation of schizophrenia vs post TBI/subdural psychosis given recent fall and hematoma in July 2024. Medical team felt delirium unlikely and his confusion has lessened. Ongoing loosening associations, hyperreligious and paranoia delusions, disorganized behaviors at times, and auditory and visual hallucinations. He had been stable on clozapine for many years but seems to have decompensated in the setting of his recent fall. Given symptoms of hyperreligious beliefs, initial poor sleep and concern for psychomotor activation (suspected cause of his elevated CK on medical admission) possibility of schizoaffective disorder but would be atypical for first episode of dolores to show up at his age. rather suspect that recent bleed may have contributed to some increased disinhibition leading to odd behaviors, worsened psychosis and hyperreligious delusions. No signs to suggest seizure at this time nor while on the medical service but his risk for this is higher given recent subdural hematoma. Brain MRI showed no abnormal brain enhancements, some mild chronic small vessel ischemic change which could partially explain why his brain may now be more vulnerable to psychosis if a mild cognitive impairment process is also at play. UA normal, no reason to suspect UTI at this time. A: Ongoing delusions and seems hallucinations were bothering him last night and possibly contributing to difficulty sleeping. Will continue clozapine titration as no further falls, orthostatic vital signs have been stable and ongoing poor sleep without excessive daytime sedation. 304 commitment hearing held and commitment granted. MNPR due to previous disrobing, psychosis, disorganization and need to be able to use bedside urinal Overall, I spent a total of 60 minutes on this case including meeting with the patient, reviewing the chart, nursing report, orders, and documentation and participation with 304 commitment hearing. (1) Psychosis: (2) Schizophrenia: (3) Auditory hallucinations: (4) Sialorrhea: (5) Hypersexuality: (6) Hyperlipidemia: (7) Type 2 diabetes mellitus: (8) Hypertension: Plan 09/23/2024: -Increase clozapine to 500mg HS 09/22/2024: -Increase Depakote ER to 1000mg HS -Discontinue Ativan HS scheduled, adjust to prn in case contributing to falls -Orthostatic vitals BID -PT consult 09/21/2024: Clozapine level tomorrow AM 09/20/2024: Increase clozapine to 450mg HS. 09/19/2024: Increase Paxil to 30mg BID 09/18/2024: Continue medications and treatment plan 09/17/2024 Discontinue Haloperidol 09/16/2024: Clozapine to 400 mg at bedtime and discontinue a.m. dose 09/15/2024: Increase clozapine to 50 mg in the morning. Increase glycopyrrolate to 1.5 mg twice daily. 09/14/2024: Start Clozapine 25 mg in the morning 09/13/24: Continue medications and treatment plan 09/12/2024: Decrease clozapine to 350 mg at bedtime Start glycopyrrolate 1 mg twice daily Decrease haloperidol to 2.5 mg twice daily 09/11/2024: -Increase clozapine to 400mg HS 09/10/2024: -Increase clozapine to 350mg HS 09/09/2024: -Increase haldol back to 2.5mg TID -Increase ipratropium bromide 0.06% under the tongue to 3 sprays TID for sialorrhea -Increase clozapine to 300mg HS 09/08/2024: -Decrease haldol to 2.5mg HS -Discontinue topiramate 09/07/2024: -Decrease haldol to 2.5mg BID -Increase clozapine to 250mg HS 09/06/2024: -Increase Depakote ER to 500mg -Increase ipratropium bromide 0.06% under the tongue to 2 sprays TID -taper Topiramate to 25mg HS to reduce polypharmacy burden 09/05/2024: The patient was admitted to the [facility] on q15 min checks (behavioral with suicide precautions) for safety. The patient will participate in group, recreational, and milieu therapies and will be offered additional individual and family sessions as clinically appropriate. -Continue psychiatric medications: * Clozapine 200mg HS (consider further dose titration) * Topiramate 25mg BID * Haldol 2.5mg TID * Ativan 1mg HS (goal to taper as sleep improves and stabilizes) -Adjust: * Paxil from 30mg BID to 30mg daily -Start: * Depakote ER 250mg HS -Clozapine level, fasting lipid panel, HBA1c tomorrow AM -Repeat EKG given his age and now on multiple medications that can impact QTc interval Inventory Assets Strengths: supportive living environment, cooperative Needs: safety and stabilization, medication adjustment, additional coping skills, increased outpatient services Suicide Risk Level Suicide Risk Level: Moderate (q15 min suicide checks) (denies SI but with periods of hallucinations and delusions which can negatively impacting his mood ) Suicide Risk Level Comments: Risk Factors Assessment Male: Yes : Yes Do You Have Access To A Gun?: No Health Problems: Yes Mental Health Diagnoses: Yes Substance Use Disorders: No Previous Attempt: No Family History of Suicide: No Previous Psychiatric Hospitalization: Yes Hopelessness: No Protective Factors Assessment Jainism Beliefs: Yes Good Rapport with Provider: Yes Interval History Identifying Information REBA KELLY is a 69-year-old man who currently lives [facility], has a history of schizophrenia, recent subdural hematoma, HTN, Type II diabetes, HLD, BPH and was admitted on 09/04/24 14:12 on a 303 involuntary commitment for psychosis and disorganization. Chief Complaint "The devil kept me up". Review of Systems Sleep Information Total Hours of Sleep: 6.75 Meal Information Percent Meal Consumed - Breakfast: 100 Percent Meal Consumed - Lunch: 95 Percent Meal Consumed - Dinner: 0 Subjective Subjective Patient was seen & assessed and interval progress reviewed with nursing and social work. Calm today but reports he slept poorly due to the devil keeping him up. Asked more about this references "in my mind" and Satan. Later was found lying on the ground and told counselor he did this because the devil told him to lie down. Continues to ask to bless me and other staff. Denies any medication side effects. Physical Exam Psychiatric Orientation: alert, oriented to place, oriented to time and cooperative Apperance: appropriately dressed and appropriately groomed Eye Contact: good eye contact Motor Behavior: no abnormal motor movements Speech: normal rate/rhythm/volume of speech (mumbled at times) Affect: + constricted affect Mood: + anxious mood Thought Process: + tangential thought process and + looseness of associations Thought Content: + preoccupation and + delusions Suicidal Thoughts: denies suicidal thoughts, denies suicidal plan and denies suicidal intent Homicidal Thoughts: denies homicidal thoughts Hallucinations: no auditory hallucinations and no visual hallucinations Cognition: recent memory grossly intact, remote memory grossly intact, attention grossly intact and language grossly intact Insight: + limited insight Judgment: + limited judgement Vital Signs (Past 24 Hours) Last Vital Signs Temp 36.6 C 09/23/24 05:41 Pulse 74 09/23/24 05:41 Resp 17 09/23/24 05:41 BP 132/76 09/23/24 05:41 Pulse Ox 97 09/23/24 05:41 O2 Del Method Room Air 09/23/24 05:41 Results & Data ([facility]) Laboratory Results Laboratory Results - last 24 hr 09/23/24 06:07 POC Glucose 109 H Current Inpatient Medications Current Inpatient Medications: Current Inpatient Medications Acetaminophen (Acetaminophen 325 Mg Tab) 650 mg PO Q4H PRN PRN Reason: Headache or Minor Fever Stop: 10/04/24 14:11 Al Hydrox/Mg Hydrox/Simethicone (Aluminum/Magnesium Susp 30 Ml Udc) 30 ml PO Q4H PRN PRN Reason: GI Upset Stop: 10/04/24 14:11 Atorvastatin Calcium (Atorvastatin 40 Mg Tab) 40 mg PO HS [facility] Stop: 10/04/24 21:59 Last Admin: 09/22/24 21:00 Dose: 40 mg Bismuth Subsalicylate (Bismuth Subsalicylate 262 Mg Chew) 2 tab PO Q30M PRN PRN Reason: Loose Stool/Diarrhea Stop: 10/04/24 14:11 Clozapine (Clozapine 100 Mg Tab) 450 mg PO HS [facility] Stop: 10/20/24 21:59 Last Admin: 09/22/24 21:00 Dose: 450 mg Cyanocobalamin (Cyanocobalamin (B-12) 100 Mcg Tablet) 100 mcg PO QAM [facility] Stop: 10/05/24 08:59 Last Admin: 09/22/24 08:42 Dose: 100 mcg Divalproex Sodium (Divalproex Extended Release 500 Mg Tab) 1,000 mg PO HS [facility] Stop: 10/22/24 21:59 Last Admin: 09/22/24 21:03 Dose: 1,000 mg Docusate Sodium (Docusate Sodium 100 Mg Cap) 100 mg PO BID [facility] Stop: 10/07/24 20:59 Last Admin: 09/22/24 21:00 Dose: 100 mg Glycopyrrolate (Glycopyrrolate 1 Mg Tab) 1.5 mg PO BID [facility] Stop: 10/15/24 20:59 Last Admin: 09/22/24 21:00 Dose: 1.5 mg Haloperidol (Haloperidol 5 Mg Tab) 5 mg PO DAILY PRN PRN Reason: psychosis Stop: 10/08/24 15:56 Last Admin: 09/10/24 11:11 Dose: 5 mg Haloperidol Lactate (Haloperidol Lactate 5 Mg/Ml 1 Ml Vial) 5 mg IM BID PRN PRN Reason: agitation Stop: 10/04/24 15:34 Hydroxyzine HCl (Hydroxyzine Hcl 25 Mg Tab) 50 mg PO HSZ PRN PRN Reason: Insomnia Stop: 10/04/24 14:11 Last Admin: 09/19/24 23:19 Dose: 50 mg Hydroxyzine HCl (Hydroxyzine Hcl 25 Mg Tab) 25 mg PO Q4H PRN PRN Reason: Anxiety Stop: 10/04/24 14:11 Levothyroxine Sodium (Levothyroxine Sodium 25 Mcg Tablet) 25 mcg PO DAILYBB [facility] Stop: 10/05/24 07:59 Last Admin: 09/22/24 08:56 Dose: 25 mcg Lisinopril (Lisinopril 20 Mg Tab) 20 mg PO DAILY [facility] Stop: 10/05/24 08:59 Last Admin: 09/22/24 08:57 Dose: 20 mg Lorazepam (Lorazepam 2 Mg/1 Ml Vial) 1 mg IM BID PRN PRN Reason: Agitation Stop: 10/04/24 15:34 Lorazepam (Lorazepam 1 Mg Tab) 1 mg PO DAILY PRN PRN Reason: restlessness Stop: 10/06/24 02:07 Last Admin: 09/06/24 02:20 Dose: 1 mg Lorazepam (Lorazepam 1 Mg Tab) 1 mg PO HS PRN PRN Reason: insomnia Stop: 10/06/24 21:59 Magnesium Hydroxide (Magnesium Hydroxide Susp 30 Ml Udc) 30 ml PO DAILY PRN PRN Reason: Constipation Stop: 10/04/24 14:11 Meloxicam (Meloxicam 7.5 Mg Tab) 15 mg PO DAILY [facility] Stop: 10/05/24 08:59 Last Admin: 09/22/24 08:40 Dose: 15 mg Metformin HCl (Metformin Hcl 500 Mg Tab) 1,000 mg PO BID17 [facility] Stop: 10/04/24 16:59 Last Admin: 09/22/24 20:59 Dose: 1,000 mg Miscellaneous (Remove Nicoderm Patch) 1 each N/A 2100 [facility] Stop: 10/05/24 20:59 Last Admin: 09/22/24 21:04 Dose: 1 each Multivitamins (Multivitamin Tab) 1 tab PO DAILY [facility] Stop: 10/05/24 08:59 Last Admin: 09/22/24 08:43 Dose: 1 tab Nicotine (Nicotine 21 Mg/24 Hr Tdsy) 1 patch TD QAM [facility] Stop: 10/05/24 09:44 Last Admin: 09/22/24 08:48 Dose: 1 patch Nicotine Polacrilex (Nicotine Polacrilex 2 Mg Gum) 1 piece MT Q2H PRN PRN Reason: smoking cessation Stop: 10/04/24 15:22 Last Admin: 09/22/24 14:32 Dose: 1 piece Paroxetine HCl (Paroxetine Hcl 10 Mg Tab) 30 mg PO BID [facility] Stop: 10/19/24 20:59 Last Admin: 09/22/24 20:59 Dose: 30 mg Polyethylene Glycol (Polyethylene (Miralax) 17 Gm Pack) 17 gm PO DAILY [facility] Stop: 10/05/24 08:59 Last Admin: 09/22/24 09:17 Dose: 17 gm Sennosides (Senna 8.6 Mg Tab) 8.6 mg PO Q2D PRN PRN Reason: constipation Stop: 10/04/24 15:30 Sodium Chloride (Sodium Chloride 0.65% Na Soln 45 Ml ([place])) 1 - 2 sprays NA PRN PRN PRN Reason: Nasal Dryness/Congestion Stop: 10/04/24 14:11 Vitamin D (Cholecalciferol 25 Mcg (1000 Units) Tab) 50 mcg PO QAM [facility] Stop: 10/05/24 08:59 Last Admin: 09/22/24 08:42 Dose: 50 mcg Mental Health & Subst Abuse Tx Psychiatrist Name of Psychiatrist: Haley Mazariegos (on maternity leave) will be seen by Dr. Juarez at [facility] Psychiatrist's Date Of Appointment With Psychiatric Provider: 09/27/24 Time of Appointment with Psychiatrist: 1:45PM Psychiatric Appointment Comment: [address] [place] [address] [place] [address] [employer] Name of [employer]: [employer] Phone Number for [employer]: [phone] Post Discharge Appointments Primary Care Physician Name Of Family Doctor/PCP: Dr. Deonte Martinez - [address] [id number] Primary Care Date of Future Appointment with PCP: 09/28/24 Time of Appointment with PCP: 8AM Provider Appointment Comment: Arrive @ 745AM, will be seen by ROSE Espinal. Check in via [employer] Social [employer]. [employer]eness. Contact Information Discharge Discharge Address: [address] [place] [address] [place] [id number] (1) Psychosis Psychosis type: schizophrenia Schizophrenia type: paranoid schizophrenia Qualified Code(s): F20.0 - Paranoid schizophrenia
--- NOTE | 2024-09-24 09:01 | Psychiatric Progress Note ---
Date of Service September 24, 2024 Impression / Recommendations Impression REBA KELLY is a 69-year-old man who currently lives [facility], has a history of schizophrenia, recent subdural hematoma, HTN, Type II diabetes, HLD, BPH and was admitted on 09/04/24 14:12 on a 303 involuntary commitment for psychosis and disorganization and now on a 304 commitment granted on 09/23/2024. Diagnostically consistent with acute exacerbation of schizophrenia vs post TBI/subdural psychosis given recent fall and hematoma in July 2024. Medical team felt delirium unlikely and his confusion has lessened. Ongoing loosening associations, hyperreligious and paranoia delusions, disorganized behaviors at times, and auditory and visual hallucinations. He had been stable on clozapine for many years but seems to have decompensated in the setting of his recent fall. Given symptoms of hyperreligious beliefs, initial poor sleep and concern for psychomotor activation (suspected cause of his elevated CK on medical admission) possibility of schizoaffective disorder but would be atypical for first episode of dolores to show up at his age. rather suspect that recent bleed may have contributed to some increased disinhibition leading to odd behaviors, worsened psychosis and hyperreligious delusions. No signs to suggest seizure at this time nor while on the medical service but his risk for this is higher given recent subdural hematoma. Brain MRI showed no abnormal brain enhancements, some mild chronic small vessel ischemic change which could partially explain why his brain may now be more vulnerable to psychosis if a mild cognitive impairment process is also at play. UA normal, no reason to suspect UTI at this time. A: Despite increasing clozapine and Depakote his delusions and insomnia persist with increased disorganization and holiness preoccupation today. Unclear if worsening could be due to recent Paxil increase so will decrease this again. Still awaiting clozapine level results. May need to consider adding back scheduled haldol if symptoms persist. MNPR due to previous disrobing, psychosis, disorganization and need to be able to use bedside urinal Overall, I spent a total of 35 minutes on this case including meeting with the patient, reviewing the chart, nursing report, orders, and documentation. (1) Psychosis: (2) Schizophrenia: (3) Auditory hallucinations: (4) Sialorrhea: (5) Hypersexuality: (6) Hyperlipidemia: (7) Type 2 diabetes mellitus: (8) Hypertension: Plan 09/24/2024: -Decrease Paxil to 30mg daily 09/23/2024: -Increase clozapine to 500mg HS 09/22/2024: -Increase Depakote ER to 1000mg HS -Discontinue Ativan HS scheduled, adjust to prn in case contributing to falls -Orthostatic vitals BID -PT consult 09/21/2024: Clozapine level tomorrow AM 09/20/2024: Increase clozapine to 450mg HS. 09/19/2024: Increase Paxil to 30mg BID 09/18/2024: Continue medications and treatment plan 09/17/2024 Discontinue Haloperidol 09/16/2024: Clozapine to 400 mg at bedtime and discontinue a.m. dose 09/15/2024: Increase clozapine to 50 mg in the morning. Increase glycopyrrolate to 1.5 mg twice daily. 09/14/2024: Start Clozapine 25 mg in the morning 09/13/24: Continue medications and treatment plan 09/12/2024: Decrease clozapine to 350 mg at bedtime Start glycopyrrolate 1 mg twice daily Decrease haloperidol to 2.5 mg twice daily 09/11/2024: -Increase clozapine to 400mg HS 09/10/2024: -Increase clozapine to 350mg HS 09/09/2024: -Increase haldol back to 2.5mg TID -Increase ipratropium bromide 0.06% under the tongue to 3 sprays TID for sialorrhea -Increase clozapine to 300mg HS 09/08/2024: -Decrease haldol to 2.5mg HS -Discontinue topiramate 09/07/2024: -Decrease haldol to 2.5mg BID -Increase clozapine to 250mg HS 09/06/2024: -Increase Depakote ER to 500mg -Increase ipratropium bromide 0.06% under the tongue to 2 sprays TID -taper Topiramate to 25mg HS to reduce polypharmacy burden 09/05/2024: The patient was admitted to the [facility] ([facility]) on q15 min checks (behavioral with suicide precautions) for safety. The patient will participate in group, recreational, and milieu therapies and will be offered additional individual and family sessions as clinically appropriate. -Continue psychiatric medications: * Clozapine 200mg HS (consider further dose titration) * Topiramate 25mg BID * Haldol 2.5mg TID * Ativan 1mg HS (goal to taper as sleep improves and stabilizes) -Adjust: * Paxil from 30mg BID to 30mg daily -Start: * Depakote ER 250mg HS -Clozapine level, fasting lipid panel, HBA1c tomorrow AM -Repeat EKG given his age and now on multiple medications that can impact QTc interval Inventory Assets Strengths: supportive living environment, cooperative Needs: safety and stabilization, medication adjustment, additional coping skills, increased outpatient services Suicide Risk Level Suicide Risk Level: Moderate (q15 min suicide checks) (denies SI but with periods of hallucinations and delusions which can negatively impacting his mood ) Suicide Risk Level Comments: Risk Factors Assessment Male: Yes : Yes Do You Have Access To A Gun?: No Health Problems: Yes Mental Health Diagnoses: Yes Substance Use Disorders: No Previous Attempt: No Family History of Suicide: No Previous Psychiatric Hospitalization: Yes Hopelessness: No Protective Factors Assessment Gnosticist Beliefs: Yes Good Rapport with Provider: Yes Interval History Identifying Information REBA KELLY is a 69-year-old man who currently lives [facility], has a history of schizophrenia, recent subdural hematoma, HTN, Type II diabetes, HLD, BPH and was admitted on 09/04/24 14:12 on a 303 involuntary commitment for psychosis and disorganization. Chief Complaint "Let's have a pizza alliance party". Review of Systems Sleep Information Total Hours of Sleep: 4.5 Meal Information Percent Meal Consumed - Breakfast: 90 Percent Meal Consumed - Lunch: 50 Percent Meal Consumed - Dinner: 5 Subjective Subjective Patient was seen & assessed and interval progress reviewed with treatment team. Disorganized, irritable and delusional last night. Carrying around a bible. Bowel incontinence overnight, smeared it in his room and on himself, and refused to shower or clean up until significant convincing by RNs. PT recommends ongoing walker use but that his strength is good. Slept poorly last night. Today disorganized. Disrobing at times. Tells me "let's have a pizza alliance party", "bless you ma'am" and "I love you". Physical Exam Psychiatric Orientation: alert, oriented to place, oriented to time and cooperative Apperance: appropriately dressed and appropriately groomed Eye Contact: good eye contact Motor Behavior: no abnormal motor movements Speech: normal rate/rhythm/volume of speech (mumbled at times) Affect: + labile affect, + irritable affect and + constricted affect Mood: + anxious mood Thought Process: + tangential thought process and + looseness of associations Thought Content: + preoccupation and + delusions Suicidal Thoughts: denies suicidal thoughts, denies suicidal plan and denies suicidal intent Homicidal Thoughts: denies homicidal thoughts Hallucinations: no auditory hallucinations and no visual hallucinations Cognition: recent memory grossly intact, remote memory grossly intact, attention grossly intact and language grossly intact Insight: + limited insight Judgment: + limited judgement Vital Signs (Past 24 Hours) Last Vital Signs Temp 36.9 C 09/24/24 06:27 Pulse 86 09/24/24 06:27 Resp 18 09/24/24 06:27 BP 105/63 09/24/24 06:27 Pulse Ox 97 09/23/24 05:41 O2 Del Method Room Air 09/23/24 05:41 Results & Data ([facility] [place]) Laboratory Results Laboratory Results - last 24 hr 09/24/24 06:12 POC Glucose 118 H Current Inpatient Medications Current Inpatient Medications: Current Inpatient Medications Acetaminophen (Acetaminophen 325 Mg Tab) 650 mg PO Q4H PRN PRN Reason: Headache or Minor Fever Stop: 10/04/24 14:11 Al Hydrox/Mg Hydrox/Simethicone (Aluminum/Magnesium Susp 30 Ml Udc) 30 ml PO Q4H PRN PRN Reason: GI Upset Stop: 10/04/24 14:11 Atorvastatin Calcium (Atorvastatin 40 Mg Tab) 40 mg PO HS BEATRICE Stop: 10/04/24 21:59 Last Admin: 09/23/24 20:52 Dose: 40 mg Bismuth Subsalicylate (Bismuth Subsalicylate 262 Mg Chew) 2 tab PO Q30M PRN PRN Reason: Loose Stool/Diarrhea Stop: 10/04/24 14:11 Clozapine (Clozapine 100 Mg Tab) 500 mg PO HS BEATRICE Stop: 10/23/24 21:59 Last Admin: 09/23/24 20:53 Dose: 500 mg Cyanocobalamin (Cyanocobalamin (B-12) 100 Mcg Tablet) 100 mcg PO QAM BEATRICE Stop: 10/05/24 08:59 Last Admin: 09/24/24 08:09 Dose: 100 mcg Divalproex Sodium (Divalproex Extended Release 500 Mg Tab) 1,000 mg PO HS BEATRICE Stop: 10/22/24 21:59 Last Admin: 09/23/24 20:53 Dose: 1,000 mg Docusate Sodium (Docusate Sodium 100 Mg Cap) 100 mg PO BID BEATRICE Stop: 10/07/24 20:59 Last Admin: 09/23/24 21:00 Dose: Not Given Glycopyrrolate (Glycopyrrolate 1 Mg Tab) 1.5 mg PO BID BEATRICE Stop: 10/15/24 20:59 Last Admin: 09/24/24 08:10 Dose: 1.5 mg Haloperidol (Haloperidol 5 Mg Tab) 5 mg PO DAILY PRN PRN Reason: psychosis Stop: 10/08/24 15:56 Last Admin: 09/10/24 11:11 Dose: 5 mg Haloperidol Lactate (Haloperidol Lactate 5 Mg/Ml 1 Ml Vial) 5 mg IM BID PRN PRN Reason: agitation Stop: 10/04/24 15:34 Hydroxyzine HCl (Hydroxyzine Hcl 25 Mg Tab) 50 mg PO HSZ PRN PRN Reason: Insomnia Stop: 10/04/24 14:11 Last Admin: 09/19/24 23:19 Dose: 50 mg Hydroxyzine HCl (Hydroxyzine Hcl 25 Mg Tab) 25 mg PO Q4H PRN PRN Reason: Anxiety Stop: 10/04/24 14:11 Levothyroxine Sodium (Levothyroxine Sodium 25 Mcg Tablet) 25 mcg PO DAILYBB [facility] Stop: 10/05/24 07:59 Last Admin: 09/24/24 08:07 Dose: 25 mcg Lisinopril (Lisinopril 20 Mg Tab) 20 mg PO DAILY BEATRICE Stop: 10/05/24 08:59 Last Admin: 09/24/24 08:09 Dose: 20 mg Lorazepam (Lorazepam 2 Mg/1 Ml Vial) 1 mg IM BID PRN PRN Reason: Agitation Stop: 10/04/24 15:34 Lorazepam (Lorazepam 1 Mg Tab) 1 mg PO DAILY PRN PRN Reason: restlessness Stop: 10/06/24 02:07 Last Admin: 09/06/24 02:20 Dose: 1 mg Lorazepam (Lorazepam 1 Mg Tab) 1 mg PO HS PRN PRN Reason: insomnia Stop: 10/06/24 21:59 Magnesium Hydroxide (Magnesium Hydroxide Susp 30 Ml Udc) 30 ml PO DAILY PRN PRN Reason: Constipation Stop: 10/04/24 14:11 Meloxicam (Meloxicam 7.5 Mg Tab) 15 mg PO DAILY BEATRICE Stop: 10/05/24 08:59 Last Admin: 09/24/24 08:11 Dose: 15 mg Metformin HCl (Metformin Hcl 500 Mg Tab) 1,000 mg PO BID17 BEATRICE Stop: 10/04/24 16:59 Last Admin: 09/24/24 08:09 Dose: 1,000 mg Miscellaneous (Remove Nicoderm Patch) 1 each N/A 2100 BEATRICE Stop: 10/05/24 20:59 Last Admin: 09/23/24 20:57 Dose: 1 each Multivitamins (Multivitamin Tab) 1 tab PO DAILY BEATRICE Stop: 10/05/24 08:59 Last Admin: 09/24/24 08:12 Dose: 1 tab Nicotine (Nicotine 21 Mg/24 Hr Tdsy) 1 patch TD QAM BEATRICE Stop: 10/05/24 09:44 Last Admin: 09/24/24 08:12 Dose: 1 patch Nicotine Polacrilex (Nicotine Polacrilex 2 Mg Gum) 1 piece MT Q2H PRN PRN Reason: smoking cessation Stop: 10/04/24 15:22 Last Admin: 09/22/24 14:32 Dose: 1 piece Paroxetine HCl (Paroxetine Hcl 10 Mg Tab) 30 mg PO BID BEATRICE Stop: 10/19/24 20:59 Last Admin: 09/24/24 08:07 Dose: 30 mg Polyethylene Glycol (Polyethylene (Miralax) 17 Gm Pack) 17 gm PO DAILY BEATRICE Stop: 10/05/24 08:59 Last Admin: 09/23/24 08:40 Dose: 17 gm Sennosides (Senna 8.6 Mg Tab) 8.6 mg PO Q2D PRN PRN Reason: constipation Stop: 10/04/24 15:30 Sodium Chloride (Sodium Chloride 0.65% Na Soln 45 Ml ([place])) 1 - 2 sprays NA PRN PRN PRN Reason: Nasal Dryness/Congestion Stop: 10/04/24 14:11 Vitamin D (Cholecalciferol 25 Mcg (1000 Units) Tab) 50 mcg PO QAM BEATRICE Stop: 10/05/24 08:59 Last Admin: 09/24/24 08:11 Dose: 50 mcg Mental Health & Subst Abuse Tx Psychiatrist Name of Psychiatrist: Haley Mazariegos (on maternity leave) will be seen by Dr. Juarez at [facility] Psychiatrist's Date Of Appointment With Psychiatric Provider: 09/27/24 Time of Appointment with Psychiatrist: 1:45PM Psychiatric Appointment Comment: [address] [place] [address] [place] [id number] Dean Of Faculty Name of Dean Of Faculty: Linda Morris Phone Number for Dean Of Faculty: [phone] Post Discharge Appointments Primary Care Physician Name Of Family Doctor/PCP: Dr. Deonte Martinez - [address] [place] [address] Primary Care Date of Future Appointment with PCP: 09/28/24 Time of Appointment with PCP: 8AM Provider Appointment Comment: Arrive @ 745AM, will be seen by ROSE Espinal. Check in via [facility]. [facility] meds. Contact Information Discharge Discharge Address: [address] [place] [address] [place] [id number] (1) Psychosis Psychosis type: schizophrenia Schizophrenia type: paranoid schizophrenia Qualified Code(s): F20.0 - Paranoid schizophrenia
[2024-09-25 07:18] LABS: Red Blood Count 3.68 M/uL (4.70-6.10); White Blood Count 7.47 K/ul (4.8-10.8)
[2024-09-25 07:19] LABS: Hematocrit (blood only) 33.3 % (42.0-52.0); Hemoglobin 11.3 g/dl (14.0-18.0); Immature Granulocytes # (auto) 0.03 K/uL (0.01-0.20); Immature Granulocytes % (auto) 0.4 %; Mean Corpuscular Hemoglobin 30.7 pg (25.0-34.0); Mean Corpuscular Volume 90.5 fL (80.0-100.0); Platelet Count 173 K/uL (130-400); RDW Standard Deviation 40.0 fL (36.4-46.3)
--- NOTE | 2024-09-25 09:59 | Psychiatric Progress Note ---
Date of Service September 25, 2024 Impression / Recommendations Impression REBA KELLY is a 69-year-old man who currently lives [facility], has a history of schizophrenia, recent subdural hematoma, HTN, Type II diabetes, HLD, BPH and was admitted on 09/04/24 14:12 on a 303 involuntary commitment for psychosis and disorganization and now on a 304 commitment granted on 09/23/2024. Diagnostically consistent with acute exacerbation of schizophrenia vs post TBI/subdural psychosis given recent fall and hematoma in July 2024. Medical team felt delirium unlikely and his confusion has lessened. Ongoing loosening associations, hyperreligious and paranoia delusions, disorganized behaviors at times, and auditory and visual hallucinations. He had been stable on clozapine for many years but seems to have decompensated in the setting of his recent fall. Given symptoms of hyperreligious beliefs, initial poor sleep and concern for psychomotor activation (suspected cause of his elevated CK on medical admission) possibility of schizoaffective disorder but would be atypical for first episode of dolores to show up at his age. rather suspect that recent bleed may have contributed to some increased disinhibition leading to odd behaviors, worsened psychosis and hyperreligious delusions. No signs to suggest seizure at this time nor while on the medical service but his risk for this is higher given recent subdural hematoma. Brain MRI showed no abnormal brain enhancements, some mild chronic small vessel ischemic change which could partially explain why his brain may now be more vulnerable to psychosis if a mild cognitive impairment process is also at play. UA normal, no reason to suspect UTI at this time. A: Ongoing poor sleep and increased delusions since haldol discontinuation last week. Given this will restart scheduled haldol at low dose. Still awaiting clozapine level. Unlikely that depakote is causing any significant changes in clozapine level but results will be beneficial if much lower than anticipated. No evidence for hyperactive catatonia. MNPR due to previous disrobing, psychosis, disorganization and need to be able to use bedside urinal Overall, I spent a total of 40 minutes on this case including meeting with the patient, reviewing the chart, nursing report, orders, and documentation. (1) Psychosis: (2) Schizophrenia: (3) Auditory hallucinations: (4) Sialorrhea: (5) Hypersexuality: (6) Hyperlipidemia: (7) Type 2 diabetes mellitus: (8) Hypertension: Plan 09/25/2024: -Start haldol 2.5mg BID 09/24/2024: -Decrease Paxil to 30mg daily 09/23/2024: -Increase clozapine to 500mg HS 09/22/2024: -Increase Depakote ER to 1000mg HS -Discontinue Ativan HS scheduled, adjust to prn in case contributing to falls -Orthostatic vitals BID -PT consult 09/21/2024: Clozapine level tomorrow AM 09/20/2024: Increase clozapine to 450mg HS. 09/19/2024: Increase Paxil to 30mg BID 09/18/2024: Continue medications and treatment plan 09/17/2024 Discontinue Haloperidol 09/16/2024: Clozapine to 400 mg at bedtime and discontinue a.m. dose 09/15/2024: Increase clozapine to 50 mg in the morning. Increase glycopyrrolate to 1.5 mg twice daily. 09/14/2024: Start Clozapine 25 mg in the morning 09/13/24: Continue medications and treatment plan 09/12/2024: Decrease clozapine to 350 mg at bedtime Start glycopyrrolate 1 mg twice daily Decrease haloperidol to 2.5 mg twice daily 09/11/2024: -Increase clozapine to 400mg HS 09/10/2024: -Increase clozapine to 350mg HS 09/09/2024: -Increase haldol back to 2.5mg TID -Increase ipratropium bromide 0.06% under the tongue to 3 sprays TID for sialorrhea -Increase clozapine to 300mg HS 09/08/2024: -Decrease haldol to 2.5mg HS -Discontinue topiramate 09/07/2024: -Decrease haldol to 2.5mg BID -Increase clozapine to 250mg HS 09/06/2024: -Increase Depakote ER to 500mg -Increase ipratropium bromide 0.06% under the tongue to 2 sprays TID -taper Topiramate to 25mg HS to reduce polypharmacy burden 09/05/2024: The patient was admitted to the [facility] ([facility]) on q15 min checks (behavioral with suicide precautions) for safety. The patient will participate in group, recreational, and milieu therapies and will be offered additional individual and family sessions as clinically appropriate. -Continue psychiatric medications: * Clozapine 200mg HS (consider further dose titration) * Topiramate 25mg BID * Haldol 2.5mg TID * Ativan 1mg HS (goal to taper as sleep improves and stabilizes) -Adjust: * Paxil from 30mg BID to 30mg daily -Start: * Depakote ER 250mg HS -Clozapine level, fasting lipid panel, HBA1c tomorrow AM -Repeat EKG given his age and now on multiple medications that can impact QTc interval Inventory Assets Strengths: supportive living environment, cooperative Needs: safety and stabilization, medication adjustment, additional coping skills, increased outpatient services Suicide Risk Level Suicide Risk Level: Moderate (q15 min suicide checks) (denies SI but with periods of hallucinations and delusions which can negatively impacting his mood ) Suicide Risk Level Comments: Risk Factors Assessment Male: Yes : Yes Do You Have Access To A Gun?: No Health Problems: Yes Mental Health Diagnoses: Yes Substance Use Disorders: No Previous Attempt: No Family History of Suicide: No Previous Psychiatric Hospitalization: Yes Hopelessness: No Protective Factors Assessment Hoahaoism Beliefs: Yes Good Rapport with Provider: Yes Interval History Identifying Information REBA KELLY is a 69-year-old man who currently lives [facility], has a history of schizophrenia, recent subdural hematoma, HTN, Type II diabetes, HLD, BPH and was admitted on 09/04/24 14:12 on a 303 involuntary commitment for psychosis and disorganization. Chief Complaint "The devil is really bothering me". Review of Systems Sleep Information Total Hours of Sleep: 3.5 Meal Information Percent Meal Consumed - Breakfast: 75 Percent Meal Consumed - Lunch: 25 Percent Meal Consumed - Dinner: 75 Subjective Subjective Patient was seen & assessed and interval progress reviewed with nursing and social work. Less irritable last evening. Was laughing to himself a lot and reading his bible. One episode of urinary incontinence where it soiled his brief . Has been at the nurses station continuously this morning. Very poor sleep overnight. Making a lot of nonsensical statements. Ongoing yarsanism delusions and bothered by hallucinations today. Also speaking about his father and noting that "he was a great man". Physical Exam Psychiatric Orientation: alert, oriented to place, oriented to time and cooperative Apperance: appropriately dressed and appropriately groomed Eye Contact: good eye contact Motor Behavior: no abnormal motor movements Speech: normal rate/rhythm/volume of speech (mumbled at times) Affect: + labile affect and + constricted affect Mood: + anxious mood Thought Process: + tangential thought process and + looseness of associations Thought Content: + preoccupation and + delusions Suicidal Thoughts: denies suicidal thoughts, denies suicidal plan and denies suicidal intent Homicidal Thoughts: denies homicidal thoughts Hallucinations: + auditory hallucinations; no visual hallucinations Cognition: recent memory grossly intact, remote memory grossly intact, attention grossly intact and language grossly intact Insight: + limited insight Judgment: + limited judgement Vital Signs (Past 24 Hours) Last Vital Signs Temp 36.9 C 09/25/24 06:31 Pulse 82 09/25/24 06:32 Resp 18 09/25/24 06:31 BP 146/89 H 09/25/24 06:32 Pulse Ox 97 09/23/24 05:41 O2 Del Method Room Air 09/23/24 05:41 Results & Data ([facility]) Laboratory Results Laboratory Results - last 24 hr 09/25/24 09/25/24 06:29 06:52 WBC 7.47 RBC 3.68 L Hgb 11.3 L Hct 33.3 L MCV 90.5 MCH 30.7 MCHC 33.9 RDW Std Deviation 40.0 RDW Coeff of Kay 12.1 Plt Count 173 MPV 10.7 Immature Gran % (Auto) 0.4 Neut % (Auto) 52.5 Lymph % (Auto) 30.0 [place] % (Auto) 10.4 Eos % (Auto) 6.0 Baso % (Auto) 0.7 Neut # (Auto) 3.92 Lymph # (Auto) 2.24 [place] # (Auto) 0.78 H Eos # (Auto) 0.45 Baso # (Auto) 0.05 Immature Gran # (Auto) 0.03 POC Glucose 122 H Current Inpatient Medications Current Inpatient Medications: Current Inpatient Medications Acetaminophen (Acetaminophen 325 Mg Tab) 650 mg PO Q4H PRN PRN Reason: Headache or Minor Fever Stop: 10/04/24 14:11 Al Hydrox/Mg Hydrox/Simethicone (Aluminum/Magnesium Susp 30 Ml Udc) 30 ml PO Q4H PRN PRN Reason: GI Upset Stop: 10/04/24 14:11 Atorvastatin Calcium (Atorvastatin 40 Mg Tab) 40 mg PO HS [facility]ATRICE Stop: 10/04/24 21:59 Last Admin: 09/24/24 20:39 Dose: 40 mg Bismuth Subsalicylate (Bismuth Subsalicylate 262 Mg Chew) 2 tab PO Q30M PRN PRN Reason: Loose Stool/Diarrhea Stop: 10/04/24 14:11 Clozapine (Clozapine 100 Mg Tab) 500 mg PO HS BEATRICE Stop: 10/23/24 21:59 Last Admin: 09/24/24 20:39 Dose: 500 mg Cyanocobalamin (Cyanocobalamin (B-12) 100 Mcg Tablet) 100 mcg PO QAM [facility]RICE Stop: 10/05/24 08:59 Last Admin: 09/25/24 07:47 Dose: 100 mcg Divalproex Sodium (Divalproex Extended Release 500 Mg Tab) 1,000 mg PO HS [facility] Stop: 10/22/24 21:59 Last Admin: 09/24/24 20:41 Dose: 1,000 mg Docusate Sodium (Docusate Sodium 100 Mg Cap) 100 mg PO BID [facility]ATRICE Stop: 10/07/24 20:59 Last Admin: 09/25/24 07:38 Dose: Not Given Glycopyrrolate (Glycopyrrolate 1 Mg Tab) 1.5 mg PO BID [facility]ATRICE Stop: 10/15/24 20:59 Last Admin: 09/25/24 07:46 Dose: 1.5 mg Haloperidol (Haloperidol 5 Mg Tab) 5 mg PO BID PRN PRN Reason: psychosis Stop: 10/08/24 15:56 Last Admin: 09/24/24 10:31 Dose: 5 mg Haloperidol Lactate (Haloperidol Lactate 5 Mg/Ml 1 Ml Vial) 5 mg IM BID PRN PRN Reason: agitation Stop: 10/04/24 15:34 Hydroxyzine HCl (Hydroxyzine Hcl 25 Mg Tab) 50 mg PO HSZ PRN PRN Reason: Insomnia Stop: 10/04/24 14:11 Last Admin: 09/19/24 23:19 Dose: 50 mg Hydroxyzine HCl (Hydroxyzine Hcl 25 Mg Tab) 25 mg PO Q4H PRN PRN Reason: Anxiety Stop: 10/04/24 14:11 Levothyroxine Sodium (Levothyroxine Sodium 25 Mcg Tablet) 25 mcg PO DAILYBB BEATRICE Stop: 10/05/24 07:59 Last Admin: 09/25/24 07:46 Dose: 25 mcg Lisinopril (Lisinopril 20 Mg Tab) 20 mg PO DAILY BEATRICE Stop: 10/05/24 08:59 Last Admin: 09/25/24 07:48 Dose: 20 mg Lorazepam (Lorazepam 2 Mg/1 Ml Vial) 1 mg IM BID PRN PRN Reason: Agitation Stop: 10/04/24 15:34 Lorazepam (Lorazepam 1 Mg Tab) 1 mg PO DAILY PRN PRN Reason: restlessness Stop: 10/06/24 02:07 Last Admin: 09/25/24 07:46 Dose: 1 mg Lorazepam (Lorazepam 1 Mg Tab) 1 mg PO HS PRN PRN Reason: insomnia Stop: 10/06/24 21:59 Magnesium Hydroxide (Magnesium Hydroxide Susp 30 Ml Udc) 30 ml PO DAILY PRN PRN Reason: Constipation Stop: 10/04/24 14:11 Meloxicam (Meloxicam 7.5 Mg Tab) 15 mg PO DAILY BEATRICE Stop: 10/05/24 08:59 Last Admin: 09/25/24 07:47 Dose: 15 mg Metformin HCl (Metformin Hcl 500 Mg Tab) 1,000 mg PO BID17 BEATRICE Stop: 10/04/24 16:59 Last Admin: 09/25/24 07:48 Dose: 1,000 mg Miscellaneous (Remove Nicoderm Patch) 1 each N/A 2100 BEATRICE Stop: 10/05/24 20:59 Last Admin: 09/24/24 20:38 Dose: 1 each Multivitamins (Multivitamin Tab) 1 tab PO DAILY BEATRICE Stop: 10/05/24 08:59 Last Admin: 09/25/24 07:48 Dose: 1 tab Nicotine (Nicotine 21 Mg/24 Hr Tdsy) 1 patch TD QAM BEATRICE Stop: 10/05/24 09:44 Last Admin: 09/25/24 07:46 Dose: 1 patch Nicotine Polacrilex (Nicotine Polacrilex 2 Mg Gum) 1 piece MT Q2H PRN PRN Reason: smoking cessation Stop: 10/04/24 15:22 Last Admin: 09/22/24 14:32 Dose: 1 piece Paroxetine HCl (Paroxetine Hcl 10 Mg Tab) 30 mg PO DAILY [facility]ATRICE Stop: 10/25/24 08:59 Last Admin: 09/25/24 07:47 Dose: 30 mg Polyethylene Glycol (Polyethylene (Miralax) 17 Gm Pack) 17 gm PO DAILY BEATRICE Stop: 10/05/24 08:59 Last Admin: 09/25/24 07:38 Dose: Not Given Sennosides (Senna 8.6 Mg Tab) 8.6 mg PO Q2D PRN PRN Reason: constipation Stop: 10/04/24 15:30 Sodium Chloride (Sodium Chloride 0.65% Na Soln 45 Ml ([place])) 1 - 2 sprays NA PRN PRN PRN Reason: Nasal Dryness/Congestion Stop: 10/04/24 14:11 Vitamin D (Cholecalciferol 25 Mcg (1000 Units) Tab) 50 mcg PO QAM [facility]ATRICE Stop: 10/05/24 08:59 Last Admin: 09/25/24 07:47 Dose: 50 mcg Mental Health & Subst Abuse Tx Psychiatrist Name of Psychiatrist: Haley Mazariegos (on maternity leave) will be seen by Dr. Juarez at [facility] Psychiatrist's Date Of Appointment With Psychiatric Provider: 09/27/24 Time of Appointment with Psychiatrist: 1:45PM Psychiatric Appointment Comment: [address] [place] [address] Manganese Wheeler Name of Manganese Wheeler: Linda Morris Phone Number for Manganese Wheeler: [phone] Post Discharge Appointments Primary Care Physician Name Of Family Doctor/PCP: Dr. Deonte Martinez - [address] [place] [address] Primary Care Date of Future Appointment with PCP: 09/28/24 Time of Appointment with PCP: 8AM Provider Appointment Comment: Arrive @ 745AM, will be seen by ROSE Espinal. Check in via [employer]. Contact Information Discharge Discharge Address: [address] [place] [address] ROSE [id number] (1) Psychosis Psychosis type: schizophrenia Schizophrenia type: paranoid schizophrenia Qualified Code(s): F20.0 - Paranoid schizophrenia
--- NOTE | 2024-09-26 15:04 | Psychiatric Progress Note ---
Date of Service September 26, 2024 Impression / Recommendations Impression REBA KELLY is a 69-year-old man who currently lives [facility], has a history of schizophrenia, recent subdural hematoma, HTN, Type II diabetes, HLD, BPH and was admitted on 09/04/24 14:12 on a 303 involuntary commitment for psychosis and disorganization and now on a 304 commitment granted on 09/23/2024. Per Dr Godfrey's note: "Diagnostically consistent with acute exacerbation of schizophrenia vs post TBI/subdural psychosis given recent fall and hematoma in July 2024. Medical team felt delirium unlikely and his confusion has lessened. Ongoing loosening associations, hyperreligious and paranoia delusions, disorganized behaviors at times, and auditory and visual hallucinations. He had been stable on clozapine for many years but seems to have decompensated in the setting of his recent fall. Given symptoms of hyperreligious beliefs, initial poor sleep and concern for psychomotor activation (suspected cause of his elevated CK on medical admission) possibility of schizoaffective disorder but would be atypical for first episode of dolores to show up at his age. rather suspect that recent bleed may have contributed to some increased disinhibition leading to odd behaviors, worsened psychosis and hyperreligious delusions. No signs to suggest seizure at this time nor while on the medical service but his risk for this is higher given recent subdural hematoma. Brain MRI showed no abnormal brain enhancements, some mild chronic small vessel ischemic change which could partially explain why his brain may now be more vulnerable to psychosis if a mild cognitive impairment process is also at play. UA normal, no reason to suspect UTI at this time". A: Ongoing poor sleep and increased delusions following med adjustments last week. Haldol has been resumed. Clozapine levels within target range prior to recent increase to 500mg qhs. MNPR due to previous disrobing, psychosis, disorganization and need to be able to use bedside urinal Overall, I spent a total of 40 minutes on this case including meeting with the patient, reviewing the chart, nursing report, orders, and documentation. (1) Psychosis: (2) Schizophrenia: (3) Auditory hallucinations: (4) Sialorrhea: (5) Hypersexuality: (6) Hyperlipidemia: (7) Type 2 diabetes mellitus: (8) Hypertension: Plan 09/26/24 Continue medication at current doses. Will review indication for Paxil. Continue orthostatic vital sign monitoring bid (130s-160s/80s today) along with close monitoring given fall risk. 09/25/2024: -Start haldol 2.5mg BID 09/24/2024: -Decrease Paxil to 30mg daily 09/23/2024: -Increase clozapine to 500mg HS 09/22/2024: -Increase Depakote ER to 1000mg HS -Discontinue Ativan HS scheduled, adjust to prn in case contributing to falls -Orthostatic vitals BID -PT consult 09/21/2024: Clozapine level tomorrow AM 09/20/2024: Increase clozapine to 450mg HS. 09/19/2024: Increase Paxil to 30mg BID 09/18/2024: Continue medications and treatment plan 09/17/2024 Discontinue Haloperidol 09/16/2024: Clozapine to 400 mg at bedtime and discontinue a.m. dose 09/15/2024: Increase clozapine to 50 mg in the morning. Increase glycopyrrolate to 1.5 mg twice daily. 09/14/2024: Start Clozapine 25 mg in the morning 09/13/24: Continue medications and treatment plan 09/12/2024: Decrease clozapine to 350 mg at bedtime Start glycopyrrolate 1 mg twice daily Decrease haloperidol to 2.5 mg twice daily 09/11/2024: -Increase clozapine to 400mg HS 09/10/2024: -Increase clozapine to 350mg HS 09/09/2024: -Increase haldol back to 2.5mg TID -Increase ipratropium bromide 0.06% under the tongue to 3 sprays TID for sialorrhea -Increase clozapine to 300mg HS 09/08/2024: -Decrease haldol to 2.5mg HS -Discontinue topiramate 09/07/2024: -Decrease haldol to 2.5mg BID -Increase clozapine to 250mg HS 09/06/2024: -Increase Depakote ER to 500mg -Increase ipratropium bromide 0.06% under the tongue to 2 sprays TID -taper Topiramate to 25mg HS to reduce polypharmacy burden 09/05/2024: The patient was admitted to the [facility] ([facility]) on q15 min checks (behavioral with suicide precautions) for safety. The patient will participate in group, recreational, and milieu therapies and will be offered additional individual and family sessions as clinically appropriate. -Continue psychiatric medications: * Clozapine 200mg HS (consider further dose titration) * Topiramate 25mg BID * Haldol 2.5mg TID * Ativan 1mg HS (goal to taper as sleep improves and stabilizes) -Adjust: * Paxil from 30mg BID to 30mg daily -Start: * Depakote ER 250mg HS -Clozapine level, fasting lipid panel, HBA1c tomorrow AM -Repeat EKG given his age and now on multiple medications that can impact QTc interval Inventory Assets Strengths: supportive living environment, cooperative Needs: safety and stabilization, medication adjustment, additional coping skills, increased outpatient services Suicide Risk Level Suicide Risk Level: Moderate (q15 min suicide checks) (denies SI but with periods of hallucinations and delusions which can negatively impacting his mood ) Suicide Risk Level Comments: Risk Factors Assessment Male: Yes : Yes Do You Have Access To A Gun?: No Health Problems: Yes Mental Health Diagnoses: Yes Substance Use Disorders: No Previous Attempt: No Family History of Suicide: No Previous Psychiatric Hospitalization: Yes Hopelessness: No Protective Factors Assessment Shinto Beliefs: Yes Good Rapport with Provider: Yes Interval History Identifying Information REBA KELLY is a 69-year-old man who currently lives [facility], has a history of schizophrenia, recent subdural hematoma, HTN, Type II diabetes, HLD, BPH and was admitted on 09/04/24 14:12 on a 303 involuntary commitment for psychosis and disorganization. Chief Complaint Pt did not offer a chief complaint. Review of Systems Sleep Information Total Hours of Sleep: 4.5 Meal Information Percent Meal Consumed - Breakfast: 90 Percent Meal Consumed - Lunch: 50 Percent Meal Consumed - Dinner: 90 Subjective Subjective Patient was seen & assessed and interval progress reviewed with nursing and social work. Pt was difficult to interview as he declined to respond to questions. He mostly mumbled under his breath. He appears internally preoccupied, irritable, mumbling and mostly incoherent. Haldol 2.5mg daily started yesterday due to persisting psychosis (per staff, he was responding a lot yesterday, covering his ears). Still expressing islam preoccupation/delusional beliefs (mentioned that there are wiccans on the unit). He has had one fall on this admission and was moved to a different room for closer monitoring. Clozapine level: 454, norclozapine level 134 on 07/23/24. Physical Exam Psychiatric Orientation: alert, oriented to place, oriented to time and cooperative Apperance: appropriately dressed, appropriately groomed and + disheveled Eye Contact: good eye contact Motor Behavior: no abnormal motor movements Speech: normal rate/rhythm/volume of speech (mumbled at times) Affect: + flat affect, + blunted affect, + labile affect, + irritable affect and + constricted affect Mood: + anxious mood and + irritable mood Thought Process: + tangential thought process and + looseness of associations Thought Content: + preoccupation, + paranoid and + delusions Suicidal Thoughts: denies suicidal thoughts, denies suicidal plan and denies suicidal intent Homicidal Thoughts: denies homicidal thoughts Hallucinations: + auditory hallucinations; no visual hallucinations Cognition: recent memory grossly intact, remote memory grossly intact, attention grossly intact and language grossly intact Insight: + poor insight Judgment: + poor judgement Vital Signs (Past 24 Hours) Last Vital Signs Temp 36.9 C 09/26/24 06:28 Pulse 80 09/26/24 06:29 Resp 16 09/26/24 06:28 BP 166/89 H 09/26/24 06:29 Pulse Ox 99 09/25/24 20:09 O2 Del Method Room Air 09/25/24 20:09 Results & Data ([facility]) Laboratory Results Laboratory Results - last 24 hr 09/22/24 09/26/24 07:56 06:20 POC Glucose 99 Clozapine 454 Norclozapine 134 Current Inpatient Medications Current Inpatient Medications: Current Inpatient Medications Acetaminophen (Acetaminophen 325 Mg Tab) 650 mg PO Q4H PRN PRN Reason: Headache or Minor Fever Stop: 10/04/24 14:11 Al Hydrox/Mg Hydrox/Simethicone (Aluminum/Magnesium Susp 30 Ml Udc) 30 ml PO Q4H PRN PRN Reason: GI Upset Stop: 10/04/24 14:11 Atorvastatin Calcium (Atorvastatin 40 Mg Tab) 40 mg PO HS [facility] Stop: 10/04/24 21:59 Last Admin: 09/25/24 20:15 Dose: 40 mg Bismuth Subsalicylate (Bismuth Subsalicylate 262 Mg Chew) 2 tab PO Q30M PRN PRN Reason: Loose Stool/Diarrhea Stop: 10/04/24 14:11 Clozapine (Clozapine 100 Mg Tab) 500 mg PO HS [facility] Stop: 10/23/24 21:59 Last Admin: 09/25/24 20:16 Dose: 500 mg Cyanocobalamin (Cyanocobalamin (B-12) 100 Mcg Tablet) 100 mcg PO QAM [facility] Stop: 10/05/24 08:59 Last Admin: 09/26/24 07:37 Dose: 100 mcg Divalproex Sodium (Divalproex Extended Release 500 Mg Tab) 1,000 mg PO HS [facility] Stop: 10/22/24 21:59 Last Admin: 09/25/24 20:16 Dose: 1,000 mg Docusate Sodium (Docusate Sodium 100 Mg Cap) 100 mg PO BID [facility] Stop: 10/07/24 20:59 Last Admin: 09/26/24 07:30 Dose: 100 mg Glycopyrrolate (Glycopyrrolate 1 Mg Tab) 1.5 mg PO BID [facility] Stop: 10/15/24 20:59 Last Admin: 09/26/24 07:32 Dose: 1.5 mg Haloperidol (Haloperidol 5 Mg Tab) 5 mg PO BID PRN PRN Reason: psychosis Stop: 10/08/24 15:56 Last Admin: 09/25/24 12:32 Dose: 5 mg Haloperidol (Haloperidol 1 Mg Tab) 2.5 mg PO BID [facility] Stop: 10/25/24 20:59 Last Admin: 09/26/24 07:38 Dose: 2.5 mg Haloperidol Lactate (Haloperidol Lactate 5 Mg/Ml 1 Ml Vial) 5 mg IM BID PRN PRN Reason: agitation Stop: 10/04/24 15:34 Hydroxyzine HCl (Hydroxyzine Hcl 25 Mg Tab) 50 mg PO HSZ PRN PRN Reason: Insomnia Stop: 10/04/24 14:11 Last Admin: 09/19/24 23:19 Dose: 50 mg Hydroxyzine HCl (Hydroxyzine Hcl 25 Mg Tab) 25 mg PO Q4H PRN PRN Reason: Anxiety Stop: 10/04/24 14:11 Levothyroxine Sodium (Levothyroxine Sodium 25 Mcg Tablet) [facility] Stop: 10/05/24 07:59 Last Admin: 09/26/24 07:31 Dose: 25 mcg Lisinopril (Lisinopril 20 Mg Tab) 20 mg PO DAILY [facility] Stop: 10/05/24 08:59 Last Admin: 09/26/24 07:33 Dose: 20 mg Lorazepam (Lorazepam 2 Mg/1 Ml Vial) 1 mg IM BID PRN PRN Reason: Agitation Stop: 10/04/24 15:34 Lorazepam (Lorazepam 1 Mg Tab) 1 mg PO DAILY PRN PRN Reason: restlessness Stop: 10/06/24 02:07 Last Admin: 09/25/24 07:46 Dose: 1 mg Lorazepam (Lorazepam 1 Mg Tab) 1 mg PO HS PRN PRN Reason: insomnia Stop: 10/06/24 21:59 Magnesium Hydroxide (Magnesium Hydroxide Susp 30 Ml Udc) 30 ml PO DAILY PRN PRN Reason: Constipation Stop: 10/04/24 14:11 Meloxicam (Meloxicam 7.5 Mg Tab) 15 mg PO DAILY [facility] Stop: 10/05/24 08:59 Last Admin: 09/26/24 07:34 Dose: 15 mg Metformin HCl (Metformin Hcl 500 Mg Tab) 1,000 mg PO BID17 [facility] Stop: 10/04/24 16:59 Last Admin: 09/26/24 07:35 Dose: 1,000 mg Miscellaneous (Remove Nicoderm Patch) 1 each N/A 2100 [facility] Stop: 10/05/24 20:59 Last Admin: 09/25/24 20:26 Dose: 1 each Multivitamins (Multivitamin Tab) 1 tab PO DAILY [facility] Stop: 10/05/24 08:59 Last Admin: 09/26/24 07:34 Dose: 1 tab Nicotine (Nicotine 21 Mg/24 Hr Tdsy) 1 patch TD QAM [facility] Stop: 10/05/24 09:44 Last Admin: 09/26/24 07:45 Dose: 1 patch Nicotine Polacrilex (Nicotine Polacrilex 2 Mg Gum) 1 piece MT Q2H PRN PRN Reason: smoking cessation Stop: 10/04/24 15:22 Last Admin: 09/25/24 13:35 Dose: 1 piece Paroxetine HCl (Paroxetine Hcl 10 Mg Tab) 30 mg PO DAILY [facility] Stop: 10/25/24 08:59 Last Admin: 09/26/24 07:36 Dose: 30 mg Polyethylene Glycol (Polyethylene (Miralax) 17 Gm Pack) 17 gm PO DAILY [facility] Stop: 10/05/24 08:59 Last Admin: 09/26/24 07:29 Dose: 17 gm Sennosides (Senna 8.6 Mg Tab) 8.6 mg PO Q2D PRN PRN Reason: constipation Stop: 10/04/24 15:30 Sodium Chloride (Sodium Chloride 0.65% Na Soln 45 Ml ([facility]ennett)) 1 - 2 sprays NA PRN PRN PRN Reason: Nasal Dryness/Congestion Stop: 10/04/24 14:11 Vitamin D (Cholecalciferol 25 Mcg (1000 Units) Tab) 50 mcg PO QAM [facility] Stop: 10/05/24 08:59 Last Admin: 09/26/24 07:30 Dose: 50 mcg Mental Health & Subst Abuse Tx Psychiatrist Name of Psychiatrist: Haley Mazariegos (on maternity leave) will be seen by Dr. Juarez at [facility] Psychiatrist's Date Of Appointment With Psychiatric Provider: 09/27/24 Time of Appointment with Psychiatrist: 1:45PM Psychiatric Appointment Comment: [address] [place], [place] [id number] [employer] Name of Welt Slasher: Linda Morris Phone Number for [employer] Slasher: [phone] Post Discharge Appointments Primary Care Physician Name Of Family Doctor/PCP: Dr. Deonte Martinez - [address] [place] [address] Primary Care Date of Future Appointment with PCP: 09/28/24 Time of Appointment with PCP: 8AM Provider Appointment Comment: Arrive @ 745AM, will be seen by ROSE Espinal. Check in via [facility]. Contact Information Discharge Discharge Address: [address] [place], [place] [id number] (1) Psychosis Psychosis type: schizophrenia Schizophrenia type: paranoid schizophrenia Qualified Code(s): F20.0 - Paranoid schizophrenia
--- NOTE | 2024-09-27 18:04 | Psychiatric Progress Note ---
Date of Service September 27, 2024 Impression / Recommendations Impression REBA KELLY is a 69-year-old man who currently lives [facility], has a history of schizophrenia, recent subdural hematoma, HTN, Type II diabetes, HLD, BPH and was admitted on 09/04/24 14:12 on a 303 involuntary commitment for psychosis and disorganization and now on a 304 commitment granted on 09/23/2024. Per Dr Orellana's note: "Diagnostically consistent with acute exacerbation of schizophrenia vs post TBI/subdural psychosis given recent fall and hematoma in July 2024. Medical team felt delirium unlikely and his confusion has lessened. Ongoing loosening associations, hyperreligious and paranoia delusions, disorganized behaviors at times, and auditory and visual hallucinations. He had been stable on clozapine for many years but seems to have decompensated in the setting of his recent fall. Given symptoms of hyperreligious beliefs, initial poor sleep and concern for psychomotor activation (suspected cause of his elevated CK on medical admission) possibility of schizoaffective disorder but would be atypical for first episode of dolores to show up at his age. rather suspect that recent bleed may have contributed to some increased disinhibition leading to odd behaviors, worsened psychosis and hyperreligious delusions. No signs to suggest seizure at this time nor while on the medical service but his risk for this is higher given recent subdural hematoma. Brain MRI showed no abnormal brain enhancements, some mild chronic small vessel ischemic change which could partially explain why his brain may now be more vulnerable to psychosis if a mild cognitive impairment process is also at play. UA normal, no reason to suspect UTI at this time". A: Ongoing poor sleep and increased delusions following med adjustments last week. Haldol has been resumed. Clozapine levels within target range prior to recent increase to 500mg qhs. MNPR due to previous disrobing, psychosis, disorganization and need to be able to use bedside urinal Overall, I spent a total of 30 minutes on this case including meeting with the patient, reviewing the chart, nursing report, orders, and documentation. (1) Psychosis: (2) Schizophrenia: (3) Auditory hallucinations: (4) Sialorrhea: (5) Hypersexuality: (6) Hyperlipidemia: (7) Type 2 diabetes mellitus: (8) Hypertension: Plan 09/27/24: Increase Haldol to 5mg bid Continue other medication at current doses. 09/26/24 Continue medication at current doses. Will review indication for Paxil. Continue orthostatic vital sign monitoring bid (130s-160s/80s today) along with close monitoring given fall risk. 09/25/2024: -Start haldol 2.5mg BID 09/24/2024: -Decrease Paxil to 30mg daily 09/23/2024: -Increase clozapine to 500mg HS 09/22/2024: -Increase Depakote ER to 1000mg HS -Discontinue Ativan HS scheduled, adjust to prn in case contributing to falls -Orthostatic vitals BID -PT consult 09/21/2024: Clozapine level tomorrow AM 09/20/2024: Increase clozapine to 450mg HS. 09/19/2024: Increase Paxil to 30mg BID 09/18/2024: Continue medications and treatment plan 09/17/2024 Discontinue Haloperidol 09/16/2024: Clozapine to 400 mg at bedtime and discontinue a.m. dose 09/15/2024: Increase clozapine to 50 mg in the morning. Increase glycopyrrolate to 1.5 mg twice daily. 09/14/2024: Start Clozapine 25 mg in the morning 09/13/24: Continue medications and treatment plan 09/12/2024: Decrease clozapine to 350 mg at bedtime Start glycopyrrolate 1 mg twice daily Decrease haloperidol to 2.5 mg twice daily 09/11/2024: -Increase clozapine to 400mg HS 09/10/2024: -Increase clozapine to 350mg HS 09/09/2024: -Increase haldol back to 2.5mg TID -Increase ipratropium bromide 0.06% under the tongue to 3 sprays TID for sialorrhea -Increase clozapine to 300mg HS 09/08/2024: -Decrease haldol to 2.5mg HS -Discontinue topiramate 09/07/2024: -Decrease haldol to 2.5mg BID -Increase clozapine to 250mg HS 09/06/2024: -Increase Depakote ER to 500mg -Increase ipratropium bromide 0.06% under the tongue to 2 sprays TID -taper Topiramate to 25mg HS to reduce polypharmacy burden 09/05/2024: The patient was admitted to the [facility] ([facility] unit) on q15 min checks (behavioral with suicide precautions) for safety. The patient will participate in group, recreational, and milieu therapies and will be offered additional individual and family sessions as clinically appropriate. -Continue psychiatric medications: * Clozapine 200mg HS (consider further dose titration) * Topiramate 25mg BID * Haldol 2.5mg TID * Ativan 1mg HS (goal to taper as sleep improves and stabilizes) -Adjust: * Paxil from 30mg BID to 30mg daily -Start: * Depakote ER 250mg HS -Clozapine level, fasting lipid panel, HBA1c tomorrow AM -Repeat EKG given his age and now on multiple medications that can impact QTc interval Inventory Assets Strengths: supportive living environment, cooperative Needs: safety and stabilization, medication adjustment, additional coping skills, increased outpatient services Suicide Risk Level Suicide Risk Level: Moderate (q15 min suicide checks) (denies SI but with periods of hallucinations and delusions which can negatively impacting his mood ) Suicide Risk Level Comments: Risk Factors Assessment Male: Yes : Yes Do You Have Access To A Gun?: No Health Problems: Yes Mental Health Diagnoses: Yes Substance Use Disorders: No Previous Attempt: No Family History of Suicide: No Previous Psychiatric Hospitalization: Yes Hopelessness: No Protective Factors Assessment Sabianist Beliefs: Yes Good Rapport with Provider: Yes Interval History Identifying Information REBA KELLY is a 69-year-old man who currently lives [facility], has a history of schizophrenia, recent subdural hematoma, HTN, Type II diabetes, HLD, BPH and was admitted on 09/04/24 14:12 on a 303 involuntary commitment for psychosis and disorganization. Chief Complaint "Please leave my room". Review of Systems Sleep Information Total Hours of Sleep: 8 Sleep Comments: incontinent of urine Meal Information Percent Meal Consumed - Breakfast: 90 Percent Meal Consumed - Lunch: 100 Percent Meal Consumed - Dinner: 50 Subjective Subjective Patient was seen & assessed and interval progress reviewed with treatment team. He declined to be interviewed by screen writer today. Pt remains religiously preoccupied. He continues making nonsensical statements and acting in bizarre fashion (e.g. he flushed banana peels, resulting in a blockage). Drooling has reduced since Glycopyrrolate was added. No falls reported overnight. Physical Exam Psychiatric Orientation: alert, oriented to place, oriented to time and cooperative Apperance: appropriately dressed, appropriately groomed and + disheveled Eye Contact: good eye contact Motor Behavior: no abnormal motor movements Speech: normal rate/rhythm/volume of speech (mumbled at times) Affect: + flat affect, + blunted affect, + irritable affect and + constricted affect Mood: + depressed mood, + anxious mood and + irritable mood Thought Process: + tangential thought process and + looseness of associations Thought Content: + preoccupation, + paranoid and + delusions Suicidal Thoughts: denies suicidal thoughts, denies suicidal plan and denies suicidal intent Homicidal Thoughts: denies homicidal thoughts Hallucinations: + auditory hallucinations; no visual hallucinations Cognition: recent memory grossly intact, remote memory grossly intact, attention grossly intact and language grossly intact Insight: + limited insight and + poor insight Judgment: + limited judgement and + poor judgement Vital Signs (Past 24 Hours) Last Vital Signs Temp 37.1 C 09/27/24 06:45 Pulse 84 09/27/24 06:45 Resp 19 09/27/24 06:45 BP 134/76 09/27/24 06:45 Pulse Ox 96 09/27/24 06:45 O2 Del Method Room Air 09/27/24 06:45 Results & Data ([facility]) Laboratory Results Laboratory Results - last 24 hr 09/27/24 06:11 POC Glucose 110 H Current Inpatient Medications Current Inpatient Medications: Current Inpatient Medications Acetaminophen (Acetaminophen 325 Mg Tab) 650 mg PO Q4H PRN PRN Reason: Headache or Minor Fever Stop: 10/04/24 14:11 Al Hydrox/Mg Hydrox/Simethicone (Aluminum/Magnesium Susp 30 Ml Udc) 30 ml PO Q4H PRN PRN Reason: GI Upset Stop: 10/04/24 14:11 Atorvastatin Calcium (Atorvastatin 40 Mg Tab) 40 mg PO HS [facility] Stop: 10/04/24 21:59 Last Admin: 09/26/24 20:33 Dose: 40 mg Bismuth Subsalicylate (Bismuth Subsalicylate 262 Mg Chew) 2 tab PO Q30M PRN PRN Reason: Loose Stool/Diarrhea Stop: 10/04/24 14:11 Clozapine (Clozapine 100 Mg Tab) 500 mg PO HS [facility] Stop: 10/23/24 21:59 Last Admin: 09/26/24 20:34 Dose: 500 mg Cyanocobalamin (Cyanocobalamin (B-12) 100 Mcg Tablet) 100 mcg PO QAM [facility] Stop: 10/05/24 08:59 Last Admin: 09/27/24 09:05 Dose: 100 mcg Divalproex Sodium (Divalproex Extended Release 500 Mg Tab) 1,000 mg PO HS [facility] Stop: 10/22/24 21:59 Last Admin: 09/26/24 20:35 Dose: 1,000 mg Docusate Sodium (Docusate Sodium 100 Mg Cap) 100 mg PO BID [facility] Stop: 10/07/24 20:59 Last Admin: 09/27/24 09:04 Dose: 100 mg Glycopyrrolate (Glycopyrrolate 1 Mg Tab) 1.5 mg PO BID [facility] Stop: 10/15/24 20:59 Last Admin: 09/27/24 09:03 Dose: 1.5 mg Haloperidol (Haloperidol 5 Mg Tab) 5 mg PO BID PRN PRN Reason: psychosis Stop: 10/08/24 15:56 Last Admin: 09/25/24 12:32 Dose: 5 mg Haloperidol (Haloperidol 1 Mg Tab) 2.5 mg PO BID [facility] Stop: 10/25/24 20:59 Last Admin: 09/27/24 09:04 Dose: 2.5 mg Haloperidol Lactate (Haloperidol Lactate 5 Mg/Ml 1 Ml Vial) 5 mg IM BID PRN PRN Reason: agitation Stop: 10/04/24 15:34 Hydroxyzine HCl (Hydroxyzine Hcl 25 Mg Tab) 50 mg PO HSZ PRN PRN Reason: Insomnia Stop: 10/04/24 14:11 Last Admin: 09/19/24 23:19 Dose: 50 mg Hydroxyzine HCl (Hydroxyzine Hcl 25 Mg Tab) 25 mg PO Q4H PRN PRN Reason: Anxiety Stop: 10/04/24 14:11 Levothyroxine Sodium (Levothyroxine Sodium 25 Mcg Tablet) 25 mcg PO DAILYBB [facility] Stop: 10/05/24 07:59 Last Admin: 09/27/24 09:03 Dose: 25 mcg Lisinopril (Lisinopril 20 Mg Tab) 20 mg PO DAILY [facility] Stop: 10/05/24 08:59 Last Admin: 09/27/24 09:05 Dose: 20 mg Lorazepam (Lorazepam 2 Mg/1 Ml Vial) 1 mg IM BID PRN PRN Reason: Agitation Stop: 10/04/24 15:34 Lorazepam (Lorazepam 1 Mg Tab) 1 mg PO DAILY PRN PRN Reason: restlessness Stop: 10/06/24 02:07 Last Admin: 09/25/24 07:46 Dose: 1 mg Lorazepam (Lorazepam 1 Mg Tab) 1 mg PO HS PRN PRN Reason: insomnia Stop: 10/06/24 21:59 Magnesium Hydroxide (Magnesium Hydroxide Susp 30 Ml Udc) 30 ml PO DAILY PRN PRN Reason: Constipation Stop: 10/04/24 14:11 Meloxicam (Meloxicam 7.5 Mg Tab) 15 mg PO DAILY [facility] Stop: 10/05/24 08:59 Last Admin: 09/27/24 09:04 Dose: 15 mg Metformin HCl (Metformin Hcl 500 Mg Tab) 1,000 mg PO BID17 [facility] Stop: 10/04/24 16:59 Last Admin: 09/27/24 09:05 Dose: 1,000 mg Miscellaneous (Remove Nicoderm Patch) 1 each N/A 2100 [facility] Stop: 10/05/24 20:59 Last Admin: 09/26/24 20:33 Dose: 1 each Multivitamins (Multivitamin Tab) 1 tab PO DAILY [facility] Stop: 10/05/24 08:59 Last Admin: 09/27/24 09:03 Dose: 1 tab Nicotine (Nicotine 21 Mg/24 Hr Tdsy) 1 patch TD QAM [facility] Stop: 10/05/24 09:44 Last Admin: 09/27/24 09:09 Dose: 1 patch Nicotine Polacrilex (Nicotine Polacrilex 2 Mg Gum) 1 piece MT Q2H PRN PRN Reason: smoking cessation Stop: 10/04/24 15:22 Last Admin: 09/25/24 13:35 Dose: 1 piece Paroxetine HCl (Paroxetine Hcl 10 Mg Tab) 30 mg PO DAILY [facility] Stop: 10/25/24 08:59 Last Admin: 09/27/24 09:04 Dose: 30 mg Polyethylene Glycol (Polyethylene (Miralax) 17 Gm Pack) 17 gm PO DAILY [facility] Stop: 10/05/24 08:59 Last Admin: 09/27/24 09:05 Dose: 17 gm Sennosides (Senna 8.6 Mg Tab) 8.6 mg PO Q2D PRN PRN Reason: constipation Stop: 10/04/24 15:30 Sodium Chloride (Sodium Chloride 0.65% Na Soln 45 Ml ([place])) 1 - 2 sprays NA PRN PRN PRN Reason: Nasal Dryness/Congestion Stop: 10/04/24 14:11 Vitamin D (Cholecalciferol 25 Mcg (1000 Units) Tab) 50 mcg PO QAM [facility] Stop: 10/05/24 08:59 Last Admin: 09/27/24 09:03 Dose: 50 mcg Mental Health & Subst Abuse Tx Psychiatrist Name of Psychiatrist: Haley Mazariegos (on maternity leave) will be seen by Dr. Juarez at [facility] Psychiatrist's Date Of Appointment With Psychiatric Provider: 09/27/24 Time of Appointment with Psychiatrist: 1:45PM Psychiatric Appointment Comment: [address] [place] [address] [place] [id number] Spindraw Operator Name of Spindraw Operator: Linda Morris Phone Number for Spindraw Operator: [phone] Post Discharge Appointments Primary Care Physician Name Of Family Doctor/PCP: Dr. Deonet Martinez - [address] [place] [address] Primary Care Date of Future Appointment with PCP: 09/28/24 Time of Appointment with PCP: 8AM Provider Appointment Comment: Arrive @ 745AM, will be seen by ROSE Espinal. Check in via [email or web address]. [facility]. Contact Information Discharge Discharge Address: [address] [place] [address] [place] [address] (1) Psychosis Psychosis type: schizophrenia Schizophrenia type: paranoid schizophrenia Qualified Code(s): F20.0 - Paranoid schizophrenia
--- NOTE | 2024-09-28 14:21 | Psychiatric Progress Note ---
Date of Service September 28, 2024 Impression / Recommendations Impression REBA KELLY is a 69-year-old man who currently lives [facility], has a history of schizophrenia, recent subdural hematoma, HTN, Type II diabetes, HLD, BPH and was admitted on 09/04/24 14:12 on a 303 involuntary commitment for psychosis and disorganization and now on a 304 commitment granted on 09/23/2024. Diagnosis: Schizophrenia vs Schizoaffective Disorder Bipolar Type. s/p TBI with subdural hematoma (resolved) with low suspicion for confusion at this time. Pt had been stable on clozapine for many years but seems to have decompensated in the setting of his recent fall. A: Chronic psychosis, worsened since recent fall. MNPR due to previous disrobing, psychosis, disorganization and need to be able to use bedside urinal Overall, I spent a total of 40 minutes on this case including meeting with the patient, reviewing the chart, nursing report, orders, and documentation. (1) Psychosis: (2) Schizophrenia: (3) Auditory hallucinations: (4) Sialorrhea: (5) Hypersexuality: (6) Hyperlipidemia: (7) Type 2 diabetes mellitus: (8) Hypertension: Plan 09/28/24: Add Melatonin 3mg qhs. Continue other medication at current doses. 09/27/24: Increase Haldol to 5mg bid Continue other medication at current doses. 09/26/24 Continue medication at current doses. Will review indication for Paxil. Continue orthostatic vital sign monitoring bid (130s-160s/80s today) along with close monitoring given fall risk. 09/25/2024: -Start haldol 2.5mg BID 09/24/2024: -Decrease Paxil to 30mg daily 09/23/2024: -Increase clozapine to 500mg HS 09/22/2024: -Increase Depakote ER to 1000mg HS -Discontinue Ativan HS scheduled, adjust to prn in case contributing to falls -Orthostatic vitals BID -PT consult 09/21/2024: Clozapine level tomorrow AM 09/20/2024: Increase clozapine to 450mg HS. 09/19/2024: Increase Paxil to 30mg BID 09/18/2024: Continue medications and treatment plan 09/17/2024 Discontinue Haloperidol 09/16/2024: Clozapine to 400 mg at bedtime and discontinue a.m. dose 09/15/2024: Increase clozapine to 50 mg in the morning. Increase glycopyrrolate to 1.5 mg twice daily. 09/14/2024: Start Clozapine 25 mg in the morning 09/13/24: Continue medications and treatment plan 09/12/2024: Decrease clozapine to 350 mg at bedtime Start glycopyrrolate 1 mg twice daily Decrease haloperidol to 2.5 mg twice daily 09/11/2024: -Increase clozapine to 400mg HS 09/10/2024: -Increase clozapine to 350mg HS 09/09/2024: -Increase haldol back to 2.5mg TID -Increase ipratropium bromide 0.06% under the tongue to 3 sprays TID for sialorrhea -Increase clozapine to 300mg HS 09/08/2024: -Decrease haldol to 2.5mg HS -Discontinue topiramate 09/07/2024: -Decrease haldol to 2.5mg BID -Increase clozapine to 250mg HS 09/06/2024: -Increase Depakote ER to 500mg -Increase ipratropium bromide 0.06% under the tongue to 2 sprays TID -taper Topiramate to 25mg HS to reduce polypharmacy burden 09/05/2024: The patient was admitted to the [facility] ([facility]) on q15 min checks (behavioral with suicide precautions) for safety. The patient will participate in group, recreational, and milieu therapies and will be offered additional individual and family sessions as clinically appropriate. -Continue psychiatric medications: * Clozapine 200mg HS (consider further dose titration) * Topiramate 25mg BID * Haldol 2.5mg TID * Ativan 1mg HS (goal to taper as sleep improves and stabilizes) -Adjust: * Paxil from 30mg BID to 30mg daily -Start: * Depakote ER 250mg HS -Clozapine level, fasting lipid panel, HBA1c tomorrow AM -Repeat EKG given his age and now on multiple medications that can impact QTc interval Inventory Assets Strengths: supportive living environment, cooperative Needs: safety and stabilization, medication adjustment, additional coping skills, increased outpatient services Suicide Risk Level Suicide Risk Level: Moderate (q15 min suicide checks) (denies SI but with periods of hallucinations and delusions which can negatively impacting his mood ) Suicide Risk Level Comments: Risk Factors Assessment Male: Yes : Yes Do You Have Access To A Gun?: No Health Problems: Yes Mental Health Diagnoses: Yes Substance Use Disorders: No Previous Attempt: No Family History of Suicide: No Previous Psychiatric Hospitalization: Yes Hopelessness: No Protective Factors Assessment Yarsanism Beliefs: Yes Good Rapport with Provider: Yes Interval History Identifying Information REBA KELLY is a 69-year-old man who currently lives [facility], has a history of schizophrenia, recent subdural hematoma, HTN, Type II diabetes, HLD, BPH and was admitted on 09/04/24 14:12 on a 303 involuntary commitment for psychosis and disorganization. Chief Complaint Pt was unable to utter a chief complaint (speech is largely unintelligible). Review of Systems Sleep Information Total Hours of Sleep: 2.5 Sleep Comments: incontinent of urine Meal Information Percent Meal Consumed - Breakfast: 90 Percent Meal Consumed - Lunch: 100 Percent Meal Consumed - Dinner: 50 Subjective Subjective Patient was seen & assessed and interval progress reviewed with nursing and social work. 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 Speech was largely unintelligible at assessment. Collateral obtained from staff: Pt was constantly at NS and slept very little last night (2.5hrs). He received vistaril. Notably, he has a history of falls, with his last fall last week. PT assessment reviewed: recommended use of walker. Haldol was increased yesterday. No overt side effects. Physical Exam Psychiatric Orientation: alert, oriented to place, oriented to time and cooperative Apperance: appropriately dressed, appropriately groomed and + disheveled Eye Contact: good eye contact Motor Behavior: no abnormal motor movements Speech: normal rate/rhythm/volume of speech (mumbled at times) Affect: + flat affect, + blunted affect, + labile affect, + irritable affect and + constricted affect Mood: + anxious mood, + irritable mood and + dysphoric mood Thought Process: + tangential thought process and + looseness of associations Thought Content: + preoccupation, + paranoid and + delusions Suicidal Thoughts: denies suicidal thoughts, denies suicidal plan and denies suicidal intent Homicidal Thoughts: denies homicidal thoughts Hallucinations: + auditory hallucinations; no visual hallucinations Cognition: recent memory grossly intact, remote memory grossly intact, attention grossly intact and language grossly intact Insight: + poor insight Judgment: + poor judgement Vital Signs (Past 24 Hours) Last Vital Signs Temp 36.9 C 09/28/24 04:10 Pulse 84 09/27/24 06:45 Resp 17 09/28/24 04:10 BP 134/76 09/27/24 06:45 Pulse Ox 98 09/28/24 04:10 O2 Del Method Room Air 09/28/24 04:10 Results & Data ([facility]) Laboratory Results Laboratory Results - last 24 hr 09/28/24 06:02 POC Glucose 109 H Current Inpatient Medications Current Inpatient Medications: Current Inpatient Medications Acetaminophen (Acetaminophen 325 Mg Tab) 650 mg PO Q4H PRN PRN Reason: Headache or Minor Fever Stop: 10/04/24 14:11 Al Hydrox/Mg Hydrox/Simethicone (Aluminum/Magnesium Susp 30 Ml Udc) 30 ml PO Q4H PRN PRN Reason: GI Upset Stop: 10/04/24 14:11 Atorvastatin Calcium (Atorvastatin 40 Mg Tab) 40 mg PO HS BEATRICE Stop: 10/04/24 21:59 Last Admin: 09/27/24 21:12 Dose: 40 mg Bismuth Subsalicylate (Bismuth Subsalicylate 262 Mg Chew) 2 tab PO Q30M PRN PRN Reason: Loose Stool/Diarrhea Stop: 10/04/24 14:11 Clozapine (Clozapine 100 Mg Tab) 500 mg PO HS BEATRICE Stop: 10/23/24 21:59 Last Admin: 09/27/24 21:12 Dose: 500 mg Cyanocobalamin (Cyanocobalamin (B-12) 100 Mcg Tablet) 100 mcg PO QAM BEATRICE Stop: 10/05/24 08:59 Last Admin: 09/28/24 08:09 Dose: 100 mcg Divalproex Sodium (Divalproex Extended Release 500 Mg Tab) 1,000 mg PO HS BEATRICE Stop: 10/22/24 21:59 Last Admin: 09/27/24 21:13 Dose: 1,000 mg Docusate Sodium (Docusate Sodium 100 Mg Cap) 100 mg PO BID BEATRICE Stop: 10/07/24 20:59 Last Admin: 09/28/24 08:09 Dose: 100 mg Glycopyrrolate (Glycopyrrolate 1 Mg Tab) 1.5 mg PO BID BEATRICE Stop: 10/15/24 20:59 Last Admin: 09/28/24 08:09 Dose: 1.5 mg Haloperidol (Haloperidol 5 Mg Tab) 5 mg PO BID PRN PRN Reason: psychosis Stop: 10/08/24 15:56 Last Admin: 09/25/24 12:32 Dose: 5 mg Haloperidol (Haloperidol 5 Mg Tab) 5 mg PO BID BEATRICE Stop: 10/27/24 20:59 Last Admin: 09/28/24 08:10 Dose: 5 mg Haloperidol Lactate (Haloperidol Lactate 5 Mg/Ml 1 Ml Vial) 5 mg IM BID PRN PRN Reason: agitation Stop: 10/04/24 15:34 Hydroxyzine HCl (Hydroxyzine Hcl 25 Mg Tab) 50 mg PO HSZ PRN PRN Reason: Insomnia Stop: 10/04/24 14:11 Last Admin: 09/28/24 01:21 Dose: 50 mg Hydroxyzine HCl (Hydroxyzine Hcl 25 Mg Tab) 25 mg PO Q4H PRN PRN Reason: Anxiety Stop: 10/04/24 14:11 Levothyroxine Sodium (Levothyroxine Sodium 25 Mcg Tablet) 25 mcg PO DAILYBB BEATRICE Stop: 10/05/24 07:59 Last Admin: 09/28/24 08:09 Dose: 25 mcg Lisinopril (Lisinopril 20 Mg Tab) 20 mg PO DAILY BEATRICE Stop: 10/05/24 08:59 Last Admin: 09/28/24 08:10 Dose: 20 mg Lorazepam (Lorazepam 2 Mg/1 Ml Vial) 1 mg IM BID PRN PRN Reason: Agitation Stop: 10/04/24 15:34 Lorazepam (Lorazepam 1 Mg Tab) 1 mg PO DAILY PRN PRN Reason: restlessness Stop: 10/06/24 02:07 Last Admin: 09/25/24 07:46 Dose: 1 mg Lorazepam (Lorazepam 1 Mg Tab) 1 mg PO HS PRN PRN Reason: insomnia Stop: 10/06/24 21:59 Magnesium Hydroxide (Magnesium Hydroxide Susp 30 Ml Udc) 30 ml PO DAILY PRN PRN Reason: Constipation Stop: 10/04/24 14:11 Meloxicam (Meloxicam 7.5 Mg Tab) 15 mg PO DAILY BEATRICE Stop: 10/05/24 08:59 Last Admin: 09/28/24 08:10 Dose: 15 mg Metformin HCl (Metformin Hcl 500 Mg Tab) 1,000 mg PO BID17 BEATRICE Stop: 10/04/24 16:59 Last Admin: 09/28/24 08:10 Dose: 1,000 mg Miscellaneous (Remove Nicoderm Patch) 1 each N/A 2100 BEATRICE Stop: 10/05/24 20:59 Last Admin: 09/27/24 21:17 Dose: 1 each Multivitamins (Multivitamin Tab) 1 tab PO DAILY BEATRICE Stop: 10/05/24 08:59 Last Admin: 09/28/24 08:11 Dose: 1 tab Nicotine (Nicotine 21 Mg/24 Hr Tdsy) 1 patch TD QAM BEATRICE Stop: 10/05/24 09:44 Last Admin: 09/28/24 08:23 Dose: 1 patch Nicotine Polacrilex (Nicotine Polacrilex 2 Mg Gum) 1 piece MT Q2H PRN PRN Reason: smoking cessation Stop: 10/04/24 15:22 Last Admin: 09/25/24 13:35 Dose: 1 piece Paroxetine HCl (Paroxetine Hcl 10 Mg Tab) 30 mg PO DAILY BEATRICE Stop: 10/25/24 08:59 Last Admin: 09/28/24 08:12 Dose: 30 mg Polyethylene Glycol (Polyethylene (Miralax) 17 Gm Pack) 17 gm PO DAILY BEATRICE Stop: 10/05/24 08:59 Last Admin: 09/28/24 08:12 Dose: 17 gm Sennosides (Senna 8.6 Mg Tab) 8.6 mg PO Q2D PRN PRN Reason: constipation Stop: 10/04/24 15:30 Sodium Chloride (Sodium Chloride 0.65% Na Soln 45 Ml ([place])) 1 - 2 sprays NA PRN PRN PRN Reason: Nasal Dryness/Congestion Stop: 10/04/24 14:11 Vitamin D (Cholecalciferol 25 Mcg (1000 Units) Tab) 50 mcg PO QAM BEATRICE Stop: 10/05/24 08:59 Last Admin: 09/28/24 08:09 Dose: 50 mcg Mental Health & Subst Abuse Tx Psychiatrist Name of Psychiatrist: Haley Mazariegos (on maternity leave) will be seen by Dr. Juarez at [facility] Psychiatrist's Date Of Appointment With Psychiatric Provider: 09/27/24 Time of Appointment with Psychiatrist: 1:45PM Psychiatric Appointment Comment: [address] [place], [place] [address] [address] Communication Consultant Name of Communication Consultant: Linda Morris Phone Number for Communication Consultant: [phone] Post Discharge Appointments Primary Care Physician Name Of Family Doctor/PCP: Dr. Deonte Martinez [place] [address] [place] [id number] [place] Date of Future Appointment with PCP: 09/28/24 Time of Appointment with PCP: 8AM Provider Appointment Comment: Arrive @ 745AM, will be seen by ROSE Espinal. Check in via [employer]. [employer]. Contact Information Discharge Discharge Address: [address] [place] [address] (1) Psychosis Psychosis type: schizophrenia Schizophrenia type: paranoid schizophrenia Qualified Code(s): F20.0 - Paranoid schizophrenia
--- NOTE | 2024-09-29 14:14 | Psychiatric Progress Note ---
Date of Service September 29, 2024 Impression / Recommendations Impression REBA KELLY is a 69-year-old man who currently lives [facility], has a history of schizophrenia, recent subdural hematoma, HTN, Type II diabetes, HLD, BPH and was admitted on 09/04/24 14:12 on a 303 involuntary commitment for psychosis and disorganization and now on a 304 commitment granted on 09/23/2024. Diagnosis: Schizophrenia vs Schizoaffective Disorder Bipolar Type. s/p TBI with subdural hematoma (resolved) with low suspicion for confusion at this time. Pt had been stable on clozapine for many years but seems to have decompensated in the setting of his recent fall. A: Chronic, severe and persistent psychosis. MNPR due to previous disrobing, psychosis, disorganization and need to be able to use bedside urinal Overall, I spent a total of 30 minutes on this case including meeting with the patient, reviewing the chart, nursing report, orders, and documentation. (1) Psychosis: (2) Schizophrenia: (3) Auditory hallucinations: (4) Sialorrhea: (5) Hypersexuality: (6) Hyperlipidemia: (7) Type 2 diabetes mellitus: (8) Hypertension: Plan 09/29/24: Continue medication regimen with no changes. Scheduled for evaluation by the Office of Aging on . 09/28/24: Add Melatonin 3mg qhs. Continue other medication at current doses. 09/27/24: Increase Haldol to 5mg bid Continue other medication at current doses. 09/26/24 Continue medication at current doses. Will review indication for Paxil. Continue orthostatic vital sign monitoring bid (130s-160s/80s today) along with close monitoring given fall risk. 09/25/2024: -Start haldol 2.5mg BID 09/24/2024: -Decrease Paxil to 30mg daily 09/23/2024: -Increase clozapine to 500mg HS 09/22/2024: -Increase Depakote ER to 1000mg HS -Discontinue Ativan HS scheduled, adjust to prn in case contributing to falls -Orthostatic vitals BID -PT consult 09/21/2024: Clozapine level tomorrow AM 09/20/2024: Increase clozapine to 450mg HS. 09/19/2024: Increase Paxil to 30mg BID 09/18/2024: Continue medications and treatment plan 09/17/2024 Discontinue Haloperidol 09/16/2024: Clozapine to 400 mg at bedtime and discontinue a.m. dose 09/15/2024: Increase clozapine to 50 mg in the morning. Increase glycopyrrolate to 1.5 mg twice daily. 09/14/2024: Start Clozapine 25 mg in the morning 09/13/24: Continue medications and treatment plan 09/12/2024: Decrease clozapine to 350 mg at bedtime Start glycopyrrolate 1 mg twice daily Decrease haloperidol to 2.5 mg twice daily 09/11/2024: -Increase clozapine to 400mg HS 09/10/2024: -Increase clozapine to 350mg HS 09/09/2024: -Increase haldol back to 2.5mg TID -Increase ipratropium bromide 0.06% under the tongue to 3 sprays TID for sialorrhea -Increase clozapine to 300mg HS 09/08/2024: -Decrease haldol to 2.5mg HS -Discontinue topiramate 09/07/2024: -Decrease haldol to 2.5mg BID -Increase clozapine to 250mg HS 09/06/2024: -Increase Depakote ER to 500mg -Increase ipratropium bromide 0.06% under the tongue to 2 sprays TID -taper Topiramate to 25mg HS to reduce polypharmacy burden 09/05/2024: The patient was admitted to the [facility]) on q15 min checks (behavioral with suicide precautions) for safety. The patient will participate in group, recreational, and milieu therapies and will be offered additional individual and family sessions as clinically appropriate. -Continue psychiatric medications: * Clozapine 200mg HS (consider further dose titration) * Topiramate 25mg BID * Haldol 2.5mg TID * Ativan 1mg HS (goal to taper as sleep improves and stabilizes) -Adjust: * Paxil from 30mg BID to 30mg daily -Start: * Depakote ER 250mg HS -Clozapine level, fasting lipid panel, HBA1c tomorrow AM -Repeat EKG given his age and now on multiple medications that can impact QTc interval Inventory Assets Strengths: supportive living environment, cooperative Needs: safety and stabilization, medication adjustment, additional coping skills, increased outpatient services Suicide Risk Level Suicide Risk Level: Moderate (q15 min suicide checks) (denies SI but with periods of hallucinations and delusions which can negatively impacting his mood ) Suicide Risk Level Comments: Risk Factors Assessment Male: Yes : Yes Do You Have Access To A Gun?: No Health Problems: Yes Mental Health Diagnoses: Yes Substance Use Disorders: No Previous Attempt: No Family History of Suicide: No Previous Psychiatric Hospitalization: Yes Hopelessness: No Protective Factors Assessment Taoism Beliefs: Yes Good Rapport with Provider: Yes Interval History Identifying Information REBA KELLY is a 69-year-old man who currently lives [facility], has a history of schizophrenia, recent subdural hematoma, HTN, Type II diabetes, HLD, BPH and was admitted on 09/04/24 14:12 on a 303 involuntary commitment for psychosis and disorganization. Chief Complaint "Pt was unable to utter a chief complaint". Review of Systems Sleep Information Total Hours of Sleep: 6.25 Sleep Comments: incontinent of urine Meal Information Percent Meal Consumed - Breakfast: 100 Percent Meal Consumed - Lunch: 25 Percent Meal Consumed - Dinner: 25 Subjective Subjective Patient was seen & assessed and interval progress reviewed with treatment team. He continues to exhibit severe thought disorder and disorganized behavior. Speech is largely unintelligible, as before. Unable to elicit coherent responses to questions. He was found in a peer's room with a handful of asparagus. No overt medication side effects. More re-directable, per staff. Pt slept better. Remains sexually preoccupied (he asked the CM to be his ). Physical Exam Psychiatric Orientation: alert, oriented to place, oriented to time and cooperative Apperance: appropriately dressed, appropriately groomed and + disheveled Eye Contact: good eye contact Motor Behavior: no abnormal motor movements Speech: normal rate/rhythm/volume of speech (mumbled at times) Affect: + flat affect, + blunted affect and + constricted affect Mood: + dysphoric mood Thought Process: + tangential thought process, + looseness of associations and + incoherent thought process Thought Content: + preoccupation, + paranoid and + delusions Suicidal Thoughts: denies suicidal thoughts, denies suicidal plan and denies suicidal intent Homicidal Thoughts: denies homicidal thoughts Hallucinations: + auditory hallucinations and + visual hallucinations Cognition: recent memory grossly intact, remote memory grossly intact, attention grossly intact and language grossly intact Insight: + poor insight Judgment: + limited judgement Vital Signs (Past 24 Hours) Last Vital Signs Temp 37.1 C 09/29/24 06:55 Pulse 78 09/28/24 20:34 Resp 16 09/29/24 06:55 BP 150/94 H 09/28/24 20:34 Pulse Ox 98 09/29/24 06:55 O2 Del Method Room Air 09/29/24 06:55 Results & Data ([facility]) Laboratory Results Laboratory Results - last 24 hr 09/29/24 06:24 POC Glucose 98 Current Inpatient Medications Current Inpatient Medications: Current Inpatient Medications Acetaminophen (Acetaminophen 325 Mg Tab) 650 mg PO Q4H PRN PRN Reason: Headache or Minor Fever Stop: 10/04/24 14:11 Al Hydrox/Mg Hydrox/Simethicone (Aluminum/Magnesium Susp 30 Ml Udc) 30 ml PO Q4H PRN PRN Reason: GI Upset Stop: 10/04/24 14:11 Atorvastatin Calcium (Atorvastatin 40 Mg Tab) 40 mg PO HS BEATRICE Stop: 10/04/24 21:59 Last Admin: 09/28/24 21:52 Dose: 40 mg Bismuth Subsalicylate (Bismuth Subsalicylate 262 Mg Chew) 2 tab PO Q30M PRN PRN Reason: Loose Stool/Diarrhea Stop: 10/04/24 14:11 Clozapine (Clozapine 100 Mg Tab) 500 mg PO HS BEATRICE Stop: 10/23/24 21:59 Last Admin: 09/28/24 21:50 Dose: 500 mg Cyanocobalamin (Cyanocobalamin (B-12) 100 Mcg Tablet) 100 mcg PO QAM BEATRICE Stop: 10/05/24 08:59 Last Admin: 09/29/24 10:19 Dose: 100 mcg Divalproex Sodium (Divalproex Extended Release 500 Mg Tab) 1,000 mg PO HS BEATRICE Stop: 10/22/24 21:59 Last Admin: 09/28/24 21:00 Dose: 1,000 mg Docusate Sodium (Docusate Sodium 100 Mg Cap) 100 mg PO BID BEATRICE Stop: 10/07/24 20:59 Last Admin: 09/29/24 10:18 Dose: 100 mg Glycopyrrolate (Glycopyrrolate 1 Mg Tab) 1.5 mg PO BID BEATRICE Stop: 10/15/24 20:59 Last Admin: 09/29/24 10:16 Dose: 1.5 mg Haloperidol (Haloperidol 5 Mg Tab) 5 mg PO BID PRN PRN Reason: psychosis Stop: 10/08/24 15:56 Last Admin: 09/25/24 12:32 Dose: 5 mg Haloperidol (Haloperidol 5 Mg Tab) 5 mg PO BID BEATRICE Stop: 10/27/24 20:59 Last Admin: 09/29/24 10:19 Dose: 5 mg Haloperidol Lactate (Haloperidol Lactate 5 Mg/Ml 1 Ml Vial) 5 mg IM BID PRN PRN Reason: agitation Stop: 10/04/24 15:34 Hydroxyzine HCl (Hydroxyzine Hcl 25 Mg Tab) 50 mg PO HSZ PRN PRN Reason: Insomnia Stop: 10/04/24 14:11 Last Admin: 09/28/24 01:21 Dose: 50 mg Hydroxyzine HCl (Hydroxyzine Hcl 25 Mg Tab) 25 mg PO Q4H PRN PRN Reason: Anxiety Stop: 10/04/24 14:11 Levothyroxine Sodium (Levothyroxine Sodium 25 Mcg Tablet) 25 mcg PO DAILYBB BEATRICE Stop: 10/05/24 07:59 Last Admin: 09/29/24 10:16 Dose: 25 mcg Lisinopril (Lisinopril 20 Mg Tab) 20 mg PO DAILY BEATRICE Stop: 10/05/24 08:59 Last Admin: 09/29/24 10:19 Dose: 20 mg Lorazepam (Lorazepam 2 Mg/1 Ml Vial) 1 mg IM BID PRN PRN Reason: Agitation Stop: 10/04/24 15:34 Lorazepam (Lorazepam 1 Mg Tab) 1 mg PO DAILY PRN PRN Reason: restlessness Stop: 10/06/24 02:07 Last Admin: 09/25/24 07:46 Dose: 1 mg Lorazepam (Lorazepam 1 Mg Tab) 1 mg PO HS PRN PRN Reason: insomnia Stop: 10/06/24 21:59 Magnesium Hydroxide (Magnesium Hydroxide Susp 30 Ml Udc) 30 ml PO DAILY PRN PRN Reason: Constipation Stop: 10/04/24 14:11 Melatonin (Melatonin 3 Mg Tab) 3 mg PO HS PRN PRN Reason: Sleep Stop: 10/28/24 14:29 Meloxicam (Meloxicam 7.5 Mg Tab) 15 mg PO DAILY BEATRICE Stop: 10/05/24 08:59 Last Admin: 09/29/24 10:16 Dose: 15 mg Metformin HCl (Metformin Hcl 500 Mg Tab) 1,000 mg PO BID17 BEATRICE Stop: 10/04/24 16:59 Last Admin: 09/29/24 10:18 Dose: 1,000 mg Miscellaneous (Remove Nicoderm Patch) 1 each N/A 2100 BEATRICE Stop: 10/05/24 20:59 Last Admin: 09/28/24 21:57 Dose: 1 each Multivitamins (Multivitamin Tab) 1 tab PO DAILY BEATRICE Stop: 10/05/24 08:59 Last Admin: 09/29/24 10:16 Dose: 1 tab Nicotine (Nicotine 21 Mg/24 Hr Tdsy) 1 patch TD QAM BEATRICE Stop: 10/05/24 09:44 Last Admin: 09/29/24 10:32 Dose: 1 patch Nicotine Polacrilex (Nicotine Polacrilex 2 Mg Gum) 1 piece MT Q2H PRN PRN Reason: smoking cessation Stop: 10/04/24 15:22 Last Admin: 09/29/24 10:35 Dose: 1 piece Paroxetine HCl (Paroxetine Hcl 10 Mg Tab) 30 mg PO DAILY BEATRICE Stop: 10/25/24 08:59 Last Admin: 09/29/24 10:15 Dose: 30 mg Polyethylene Glycol (Polyethylene (Miralax) 17 Gm Pack) 17 gm PO DAILY BEATRICE Stop: 10/05/24 08:59 Last Admin: 09/29/24 10:15 Dose: 17 gm Sennosides (Senna 8.6 Mg Tab) 8.6 mg PO Q2D PRN PRN Reason: constipation Stop: 10/04/24 15:30 Sodium Chloride (Sodium Chloride 0.65% Na Soln 45 Ml ([place])) 1 - 2 sprays NA PRN PRN PRN Reason: Nasal Dryness/Congestion Stop: 10/04/24 14:11 Vitamin D (Cholecalciferol 25 Mcg (1000 Units) Tab) 50 mcg PO QAM BEATRICE Stop: 10/05/24 08:59 Last Admin: 09/29/24 10:18 Dose: 50 mcg Mental Health & Subst Abuse Tx Psychiatrist Name of Psychiatrist: Haley Mazariegos (on maternity leave) will be seen by Dr. Juarez at [facility] Psychiatrist's Date Of Appointment With Psychiatric Provider: 09/27/24 Time of Appointment with Psychiatrist: 1:45PM Psychiatric Appointment Comment: [facility] [place] [address] [address] Name of Carpenter: Linda Morris Phone Number for Carpenter: [phone] Post Discharge Appointments Primary Care Physician Name Of Family Doctor/PCP: Dr. Deonte Martinez - [address] [place] [address] Primary Care Date of Future Appointment with PCP: 09/28/24 Time of Appointment with PCP: 8AM Provider Appointment Comment: Arrive @ 745AM, will be seen by ROSE Espinal. Check in via [facility]. [facility] meds. Contact Information Discharge Discharge Address: [address] [facility] [place] [id number] (1) Psychosis Psychosis type: schizophrenia Schizophrenia type: paranoid schizophrenia Qualified Code(s): F20.0 - Paranoid schizophrenia
--- NOTE | 2024-09-30 17:27 | Psychiatric Progress Note ---
Date of Service September 30, 2024 Impression / Recommendations Impression REBA KELLY is a 69-year-old man who currently lives [facility], has a history of schizophrenia, recent subdural hematoma, HTN, Type II diabetes, HLD, BPH and was admitted on 09/04/24 14:12 on a 303 involuntary commitment for psychosis and disorganization and now on a 304 commitment granted on 09/23/2024. Diagnosis: Schizophrenia vs Schizoaffective Disorder Bipolar Type. s/p TBI with subdural hematoma (resolved) with low suspicion for confusion at this time. Pt had been stable on clozapine for many years but seems to have decompensated in the setting of his recent fall. A: Chronic, severe and persistent psychosis. MNPR due to previous disrobing, psychosis, disorganization and need to be able to use bedside urinal Overall, I spent a total of 30 minutes on this case including meeting with the patient, reviewing the chart, nursing report, orders, and documentation. (1) Psychosis: (2) Schizophrenia: (3) Auditory hallucinations: (4) Sialorrhea: (5) Hypersexuality: (6) Hyperlipidemia: (7) Type 2 diabetes mellitus: (8) Hypertension: Plan 09/30/24: Increase Glycopyrrolate to 2mg bid for hypersalivation. Continue other medication at current doses. 09/29/24: Continue medication regimen with no changes. Scheduled for evaluation by the Office of Aging on . 09/28/24: Add Melatonin 3mg qhs. Continue other medication at current doses. 09/27/24: Increase Haldol to 5mg bid Continue other medication at current doses. 09/26/24 Continue medication at current doses. Will review indication for Paxil. Continue orthostatic vital sign monitoring bid (130s-160s/80s today) along with close monitoring given fall risk. 09/25/2024: -Start haldol 2.5mg BID 09/24/2024: -Decrease Paxil to 30mg daily 09/23/2024: -Increase clozapine to 500mg HS 09/22/2024: -Increase Depakote ER to 1000mg HS -Discontinue Ativan HS scheduled, adjust to prn in case contributing to falls -Orthostatic vitals BID -PT consult 09/21/2024: Clozapine level tomorrow AM 09/20/2024: Increase clozapine to 450mg HS. 09/19/2024: Increase Paxil to 30mg BID 09/18/2024: Continue medications and treatment plan 09/17/2024 Discontinue Haloperidol 09/16/2024: Clozapine to 400 mg at bedtime and discontinue a.m. dose 09/15/2024: Increase clozapine to 50 mg in the morning. Increase glycopyrrolate to 1.5 mg twice daily. 09/14/2024: Start Clozapine 25 mg in the morning 09/13/24: Continue medications and treatment plan 09/12/2024: Decrease clozapine to 350 mg at bedtime Start glycopyrrolate 1 mg twice daily Decrease haloperidol to 2.5 mg twice daily 09/11/2024: -Increase clozapine to 400mg HS 09/10/2024: -Increase clozapine to 350mg HS 09/09/2024: -Increase haldol back to 2.5mg TID -Increase ipratropium bromide 0.06% under the tongue to 3 sprays TID for sialorrhea -Increase clozapine to 300mg HS 09/08/2024: -Decrease haldol to 2.5mg HS -Discontinue topiramate 09/07/2024: -Decrease haldol to 2.5mg BID -Increase clozapine to 250mg HS 09/06/2024: -Increase Depakote ER to 500mg -Increase ipratropium bromide 0.06% under the tongue to 2 sprays TID -taper Topiramate to 25mg HS to reduce polypharmacy burden 09/05/2024: The patient was admitted to the [facility] (health system mental health unit) on q15 min checks (behavioral with suicide precautions) for safety. The patient serina l participate in group, recreational, and milieu therapies and will be offered additional individual and family sessions as clinically appropriate. -Continue psychiatric medications: * Clozapine 200mg HS (consider further dose titration) * Topiramate 25mg BID * Haldol 2.5mg TID * Ativan 1mg HS (goal to taper as sleep improves and stabilizes) -Adjust: * Paxil from 30mg BID to 30mg daily -Start: * Depakote ER 250mg HS -Clozapine level, fasting lipid panel, HBA1c tomorrow AM -Repeat EKG given his age and now on multiple medications that can impact QTc interval Inventory Assets Strengths: supportive living environment, cooperative Needs: safety and stabilization, medication adjustment, additional coping skills, increased outpatient services Suicide Risk Level Suicide Risk Level: Moderate (q15 min suicide checks) (denies SI but with periods of hallucinations and delusions which can negatively impacting his mood ) Suicide Risk Level Comments: Risk Factors Assessment Male: Yes : Yes Do You Have Access To A Gun?: No Health Problems: Yes Mental Health Diagnoses: Yes Substance Use Disorders: No Previous Attempt: No Family History of Suicide: No Previous Psychiatric Hospitalization: Yes Hopelessness: No Protective Factors Assessment Temple Beliefs: Yes Good Rapport with Provider: Yes Interval History Identifying Information REBA KELLY is a 69-year-old man who currently lives [facility], has a history of schizophrenia, recent subdural hematoma, HTN, Type II diabetes, HLD, BPH and was admitted on 09/04/24 14:12 on a 303 involuntary commitment for psychosis and disorganization. Chief Complaint "Unable to form a chief complaint". Review of Systems Sleep Information Total Hours of Sleep: 4.75 Sleep Comments: incontinent of urine Meal Information Percent Meal Consumed - Breakfast: 100 Percent Meal Consumed - Lunch: 100 Percent Meal Consumed - Dinner: 95 Subjective Subjective Patient was seen & assessed and interval progress reviewed with nursing and social work. He remains severely disorganized in thought and behavior. However, seems less irritable and somewhat less internally preoccupied. Wanders into peers' rooms and walked around shirtless until prompted to put on a shirt by staff last night. No overt medication side effects noted since increase in Haldol dose earlier this week. No signs of EPS. Hypersalivation persists. Sexually inappropriate behavior continues; he asks female staff members to him and laid on top of a female peer earlier today. No attempt at sexual intercourse. Discussed with staff - this wandering seems to happen more at lunchtime. Otherwise, no aggression/combativeness. No falls. Slept better last night. Office of Aging reported that pt meets alf home level of care. Physical Exam Psychiatric Orientation: alert, oriented to place, oriented to time and cooperative Apperance: appropriately dressed, appropriately groomed and + disheveled Eye Contact: good eye contact Motor Behavior: no abnormal motor movements Speech: normal rate/rhythm/volume of speech (mumbled at times) Affect: + flat affect, + blunted affect and + constricted affect Mood: + dysphoric mood Thought Process: + tangential thought process, + looseness of associations and + incoherent thought process Thought Content: + preoccupation, + paranoid and + delusions Suicidal Thoughts: denies suicidal thoughts, denies suicidal plan and denies suicidal intent Homicidal Thoughts: denies homicidal thoughts Hallucinations: + auditory hallucinations and + visual hallucinations Cognition: recent memory grossly intact, remote memory grossly intact, attention grossly intact and language grossly intact Insight: + poor insight Judgment: + poor judgement Vital Signs (Past 24 Hours) Last Vital Signs Temp 36.4 C L 09/30/24 06:35 Pulse 89 09/30/24 06:35 Resp 18 09/30/24 06:35 BP 163/80 H 09/30/24 06:35 Pulse Ox 96 09/30/24 06:35 O2 Del Method Room Air 09/30/24 06:35 Results & Data ([facility]) Laboratory Results Laboratory Results - last 24 hr 09/30/24 06:38 POC Glucose 99 Current Inpatient Medications Current Inpatient Medications: Current Inpatient Medications Acetaminophen (Acetaminophen 325 Mg Tab) 650 mg PO Q4H PRN PRN Reason: Headache or Minor Fever Stop: 10/04/24 14:11 Al Hydrox/Mg Hydrox/Simethicone (Aluminum/Magnesium Susp 30 Ml Udc) 30 ml PO Q4H PRN PRN Reason: GI Upset Stop: 10/04/24 14:11 Atorvastatin Calcium (Atorvastatin 40 Mg Tab) 40 mg PO HS ON LICENSE OF [facility] Stop: 10/04/24 21:59 Last Admin: 09/29/24 21:02 Dose: 40 mg Bismuth Subsalicylate (Bismuth Subsalicylate 262 Mg Chew) 2 tab PO Q30M PRN PRN Reason: Loose Stool/Diarrhea Stop: 10/04/24 14:11 Clozapine (Clozapine 100 Mg Tab) 500 mg PO HS BEATRICE Stop: 10/23/24 21:59 Last Admin: 09/29/24 21:03 Dose: 500 mg Cyanocobalamin (Cyanocobalamin (B-12) 100 Mcg Tablet) 100 mcg PO QAM BEATRICE Stop: 10/05/24 08:59 Last Admin: 09/30/24 09:48 Dose: 100 mcg Divalproex Sodium (Divalproex Extended Release 500 Mg Tab) 1,000 mg PO HS ON LICENSE OF [facility] Stop: 10/22/24 21:59 Last Admin: 09/29/24 21:02 Dose: 1,000 mg Docusate Sodium (Docusate Sodium 100 Mg Cap) 100 mg PO BID BEATRICE Stop: 10/07/24 20:59 Last Admin: 09/30/24 09:49 Dose: 100 mg Glycopyrrolate (Glycopyrrolate 1 Mg Tab) 1.5 mg PO BID BEATRICE Stop: 10/15/24 20:59 Last Admin: 09/30/24 09:49 Dose: 1.5 mg Haloperidol (Haloperidol 5 Mg Tab) 5 mg PO BID PRN PRN Reason: psychosis Stop: 10/08/24 15:56 Last Admin: 09/25/24 12:32 Dose: 5 mg Haloperidol (Haloperidol 5 Mg Tab) 5 mg PO BID BEATRICE Stop: 10/27/24 20:59 Last Admin: 09/30/24 09:50 Dose: 5 mg Haloperidol Lactate (Haloperidol Lactate 5 Mg/Ml 1 Ml Vial) 5 mg IM BID PRN PRN Reason: agitation Stop: 10/04/24 15:34 Hydroxyzine HCl (Hydroxyzine Hcl 25 Mg Tab) 50 mg PO HSZ PRN PRN Reason: Insomnia Stop: 10/04/24 14:11 Last Admin: 09/28/24 01:21 Dose: 50 mg Hydroxyzine HCl (Hydroxyzine Hcl 25 Mg Tab) 25 mg PO Q4H PRN PRN Reason: Anxiety Stop: 10/04/24 14:11 Levothyroxine Sodium (Levothyroxine Sodium 25 Mcg Tablet) 25 mcg PO DAILYBB ON LICENSE OF [facility] Stop: 10/05/24 07:59 Last Admin: 09/30/24 09:48 Dose: 25 mcg Lisinopril (Lisinopril 20 Mg Tab) 20 mg PO DAILY BEATRICE Stop: 10/05/24 08:59 Last Admin: 09/30/24 09:50 Dose: 20 mg Lorazepam (Lorazepam 2 Mg/1 Ml Vial) 1 mg IM BID PRN PRN Reason: Agitation Stop: 10/04/24 15:34 Lorazepam (Lorazepam 1 Mg Tab) 1 mg PO DAILY PRN PRN Reason: restlessness Stop: 10/06/24 02:07 Last Admin: 09/25/24 07:46 Dose: 1 mg Lorazepam (Lorazepam 1 Mg Tab) 1 mg PO HS PRN PRN Reason: insomnia Stop: 10/06/24 21:59 Magnesium Hydroxide (Magnesium Hydroxide Susp 30 Ml Udc) 30 ml PO DAILY PRN PRN Reason: Constipation Stop: 10/04/24 14:11 Melatonin (Melatonin 3 Mg Tab) 3 mg PO HS PRN PRN Reason: Sleep Stop: 10/28/24 14:29 Meloxicam (Meloxicam 7.5 Mg Tab) 15 mg PO DAILY BEATRICE Stop: 10/05/24 08:59 Last Admin: 09/30/24 09:50 Dose: 15 mg Metformin HCl (Metformin Hcl 500 Mg Tab) 1,000 mg PO BID17 BEATRICE Stop: 10/04/24 16:59 Last Admin: 09/30/24 09:48 Dose: 1,000 mg Miscellaneous (Remove Nicoderm Patch) 1 each N/A 2100 BEATRICE Stop: 10/05/24 20:59 Last Admin: 09/29/24 21:06 Dose: 1 each Multivitamins (Multivitamin Tab) 1 tab PO DAILY BEATRICE Stop: 10/05/24 08:59 Last Admin: 09/30/24 09:50 Dose: 1 tab Nicotine (Nicotine 21 Mg/24 Hr Tdsy) 1 patch TD QAM BEATRICE Stop: 10/05/24 09:44 Last Admin: 09/30/24 09:47 Dose: 1 patch Nicotine Polacrilex (Nicotine Polacrilex 2 Mg Gum) 1 piece MT Q2H PRN PRN Reason: smoking cessation Stop: 10/04/24 15:22 Last Admin: 09/29/24 10:35 Dose: 1 piece Paroxetine HCl (Paroxetine Hcl 10 Mg Tab) 30 mg PO DAILY BEATRICE Stop: 10/25/24 08:59 Last Admin: 09/30/24 09:50 Dose: 30 mg Polyethylene Glycol (Polyethylene (Miralax) 17 Gm Pack) 17 gm PO DAILY BEATRICE Stop: 10/05/24 08:59 Last Admin: 09/30/24 09:51 Dose: Not Given Sennosides (Senna 8.6 Mg Tab) 8.6 mg PO Q2D PRN PRN Reason: constipation Stop: 10/04/24 15:30 Sodium Chloride (Sodium Chloride 0.65% Na Soln 45 Ml ([place])) 1 - 2 sprays NA PRN PRN PRN Reason: Nasal Dryness/Congestion Stop: 10/04/24 14:11 Vitamin D (Cholecalciferol 25 Mcg (1000 Units) Tab) 50 mcg PO QAM BEATRICE Stop: 10/05/24 08:59 Last Admin: 09/30/24 09:49 Dose: 50 mcg Mental Health & Subst Abuse Tx Psychiatrist Name of Psychiatrist: Haley Delilah (on maternity leave) will be seen by Dr. Juarez at [facility] Psychiatrist's Date Of Appointment With Psychiatric Provider: 09/27/24 Time of Appointment with Psychiatrist: 1:45PM Psychiatric Appointment Comment: [address] [place] [address] ROSE Palma23 Assistant Bookkeeper Name of Assistant Bookkeeper: Linda Morris Phone Number for Assistant Bookkeeper: [phone] Post Discharge Appointments Primary Care Physician Name Of Family Doctor/PCP: Dr. Deonte Martinez - [address] [id number] Primary Care Date of Future Appointment with PCP: 09/28/24 Time of Appointment with PCP: 8AM Provider Appointment Comment: Arrive @ 745AM, will be seen by ROSE Espinal. Check in via [employer]. [facility] meds. Contact Information Discharge Discharge Address: [address] [place] [address] [place] ROSE [phone] (1) Psychosis Psychosis type: schizophrenia Schizophrenia type: paranoid schizophrenia Qualified Code(s): F20.0 - Paranoid schizophrenia
[2024-09-30] MEDS: GLYCOPYRROLATE 1 MG TAB PO SCH (21:29)
--- NOTE | 2024-10-01 14:26 | Psychiatric Progress Note ---
Date of Service October 01, 2024 Impression / Recommendations Impression REBA KELLY is a 69-year-old man who currently lives [facility], has a history of schizophrenia, recent subdural hematoma, HTN, Type II diabetes, HLD, BPH and was admitted on 09/04/24 14:12 on a 303 involuntary commitment for psychosis and disorganization and now on a 304 commitment granted on 09/23/2024. Diagnosis: Schizophrenia vs Schizoaffective Disorder Bipolar Type. s/p TBI with subdural hematoma (resolved) with low suspicion for confusion at this time. Pt had been stable on clozapine for many years but seems to have decompensated in the setting of his recent fall. A: Chronic, severe and persistent psychosis. MNPR due to previous disrobing, psychosis, disorganization and need to be able to use bedside urinal Overall, I spent a total of 30 minutes on this case including meeting with the patient, reviewing the chart, nursing report, orders, and documentation. (1) Psychosis: (2) Schizophrenia: (3) Auditory hallucinations: (4) Sialorrhea: (5) Hypersexuality: (6) Hyperlipidemia: (7) Type 2 diabetes mellitus: (8) Hypertension: Plan 10/01/24 Continue medication at current doses. Continue disposition planning. 09/30/24: Increase Glycopyrrolate to 2mg bid for hypersalivation. Continue other medication at current doses. 09/29/24: Continue medication regimen. Scheduled for evaluation by the Office of Aging on . 09/28/24: Add Melatonin 3mg qhs. Continue other medication at current doses. 09/27/24: Increase Haldol to 5mg bid Continue other medication at current doses. 09/26/24 Continue medication at current doses. Will review indication for Paxil. Continue orthostatic vital sign monitoring bid (130s-160s/80s today) along with close monitoring given fall risk. 09/25/2024: -Start haldol 2.5mg BID 09/24/2024: -Decrease Paxil to 30mg daily 09/23/2024: -Increase clozapine to 500mg HS 09/22/2024: -Increase Depakote ER to 1000mg HS -Discontinue Ativan HS scheduled, adjust to prn in case contributing to falls -Orthostatic vitals BID -PT consult 09/21/2024: Clozapine level tomorrow AM 09/20/2024: Increase clozapine to 450mg HS. 09/19/2024: Increase Paxil to 30mg BID 09/18/2024: Continue medications and treatment plan 09/17/2024 Discontinue Haloperidol 09/16/2024: Clozapine to 400 mg at bedtime and discontinue a.m. dose 09/15/2024: Increase clozapine to 50 mg in the morning. Increase glycopyrrolate to 1.5 mg twice daily. 09/14/2024: Start Clozapine 25 mg in the morning 09/13/24: Continue medications and treatment plan 09/12/2024: Decrease clozapine to 350 mg at bedtime Start glycopyrrolate 1 mg twice daily Decrease haloperidol to 2.5 mg twice daily 09/11/2024: -Increase clozapine to 400mg HS 09/10/2024: -Increase clozapine to 350mg HS 09/09/2024: -Increase haldol back to 2.5mg TID -Increase ipratropium bromide 0.06% under the tongue to 3 sprays TID for sialorrhea -Increase clozapine to 300mg HS 09/08/2024: -Decrease haldol to 2.5mg HS -Discontinue topiramate 09/07/2024: -Decrease haldol to 2.5mg BID -Increase clozapine to 250mg HS 09/06/2024: -Increase Depakote ER to 500mg -Increase ipratropium bromide 0.06% under the tongue to 2 sprays TID -taper Topiramate to 25mg HS to reduce polypharmacy burden 09/05/2024: The patient was admitted to the [facility] ([facility]) on q15 min checks (behavioral with suicide precautions) for safety. The patient will participate in group, recreational, and milieu therapies and will be offered additional individual and family sessions as clinically appropriate. -Continue psychiatric medications: * Clozapine 200mg HS (consider further dose titration) * Topiramate 25mg BID * Haldol 2.5mg TID * Ativan 1mg HS (goal to taper as sleep improves and stabilizes) -Adjust: * Paxil from 30mg BID to 30mg daily -Start: * Depakote ER 250mg HS -Clozapine level, fasting lipid panel, HBA1c tomorrow AM -Repeat EKG given his age and now on multiple medications that can impact QTc interval Inventory Assets Strengths: supportive living environment, cooperative Needs: safety and stabilization, medication adjustment, additional coping skills, increased outpatient services Suicide Risk Level Suicide Risk Level: Moderate (q15 min suicide checks) (denies SI but with periods of hallucinations and delusions which can negatively impacting his mood ) Suicide Risk Level Comments: Risk Factors Assessment Male: Yes : Yes Do You Have Access To A Gun?: No Health Problems: Yes Mental Health Diagnoses: Yes Substance Use Disorders: No Previous Attempt: No Family History of Suicide: No Previous Psychiatric Hospitalization: Yes Hopelessness: No Protective Factors Assessment 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 Chief Complaint Pt is unable to utter a chief complaint. Review of Systems Sleep Information Total Hours of Sleep: 4.5 Sleep Comments: incontinent of urine Meal Information Percent Meal Consumed - Breakfast: 100 Percent Meal Consumed - Lunch: 90 Percent Meal Consumed - Dinner: 10 Subjective Subjective Patient was seen & assessed and interval progress reviewed with treatment team. Pt continues to exhibit significant psychosis. He wandered into a peers room and lay down on the bed (peer was reportedly in bed but covered by sheets). Pt was up intermittently during the night. Requires frequent redirection. Was still asleep this morning. Less irritable towards singer songwriter. No overt side effects from increase Glycopyrrolate. Approved by Office of Aging as being appropriate for SNF. Physical Exam Psychiatric Orientation: alert, oriented to place, oriented to time and cooperative Apperance: appropriately dressed, appropriately groomed and + disheveled Eye Contact: good eye contact Motor Behavior: no abnormal motor movements Speech: normal rate/rhythm/volume of speech (mumbled at times) Affect: + flat affect, + blunted affect, + constricted affect and mood congruent with affect Mood: + anxious mood Thought Process: + tangential thought process, + looseness of associations and + incoherent thought process Thought Content: + preoccupation, + paranoid and + delusions Suicidal Thoughts: denies suicidal thoughts, denies suicidal plan and denies suicidal intent Homicidal Thoughts: denies homicidal thoughts Hallucinations: + auditory hallucinations and + visual hallucinations Cognition: recent memory grossly intact, remote memory grossly intact, attention grossly intact and language grossly intact Insight: + poor insight Judgment: + poor judgement Vital Signs (Past 24 Hours) Last Vital Signs Temp 36.9 C 10/01/24 06:38 Pulse 77 10/01/24 06:38 Resp 18 10/01/24 06:38 BP 158/85 H 10/01/24 06:38 Pulse Ox 100 10/01/24 06:38 O2 Del Method Room Air 10/01/24 06:38 Results & Data ([facility]) Laboratory Results Laboratory Results - last 24 hr 10/01/24 06:37 POC Glucose 94 Current Inpatient Medications Current Inpatient Medications: Current Inpatient Medications Acetaminophen (Acetaminophen 325 Mg Tab) 650 mg PO Q4H PRN PRN Reason: Headache or Minor Fever Stop: 10/04/24 14:11 Al Hydrox/Mg Hydrox/Simethicone (Aluminum/Magnesium Susp 30 Ml Udc) 30 ml PO Q4H PRN PRN Reason: GI Upset Stop: 10/04/24 14:11 Atorvastatin Calcium (Atorvastatin 40 Mg Tab) 40 mg PO HS BEATRICE Stop: 10/04/24 21:59 Last Admin: 09/30/24 21:29 Dose: 40 mg Bismuth Subsalicylate (Bismuth Subsalicylate 262 Mg Chew) 2 tab PO Q30M PRN PRN Reason: Loose Stool/Diarrhea Stop: 10/04/24 14:11 Clozapine (Clozapine 100 Mg Tab) 500 mg PO HS BEATRICE Stop: 10/23/24 21:59 Last Admin: 09/30/24 21:31 Dose: 500 mg Cyanocobalamin (Cyanocobalamin (B-12) 100 Mcg Tablet) 100 mcg PO QAM BEATRICE Stop: 10/05/24 08:59 Last Admin: 10/01/24 09:29 Dose: 100 mcg Divalproex Sodium (Divalproex Extended Release 500 Mg Tab) 1,000 mg PO HS BEATRICE Stop: 10/22/24 21:59 Last Admin: 09/30/24 21:28 Dose: 1,000 mg Docusate Sodium (Docusate Sodium 100 Mg Cap) 100 mg PO BID BEATRICE Stop: 10/07/24 20:59 Last Admin: 10/01/24 09:29 Dose: 100 mg Glycopyrrolate (Glycopyrrolate 1 Mg Tab) 2 mg PO BID BEATRICE Stop: 10/30/24 20:59 Last Admin: 10/01/24 09:30 Dose: 2 mg Haloperidol (Haloperidol 5 Mg Tab) 5 mg PO BID PRN PRN Reason: psychosis Stop: 10/08/24 15:56 Last Admin: 09/25/24 12:32 Dose: 5 mg Haloperidol (Haloperidol 5 Mg Tab) 5 mg PO BID BEATRICE Stop: 10/27/24 20:59 Last Admin: 10/01/24 09:30 Dose: 5 mg Haloperidol Lactate (Haloperidol Lactate 5 Mg/Ml 1 Ml Vial) 5 mg IM BID PRN PRN Reason: agitation Stop: 10/04/24 15:34 Hydroxyzine HCl (Hydroxyzine Hcl 25 Mg Tab) 50 mg PO HSZ PRN PRN Reason: Insomnia Stop: 10/04/24 14:11 Last Admin: 09/28/24 01:21 Dose: 50 mg Hydroxyzine HCl (Hydroxyzine Hcl 25 Mg Tab) 25 mg PO Q4H PRN PRN Reason: Anxiety Stop: 10/04/24 14:11 Levothyroxine Sodium (Levothyroxine Sodium 25 Mcg Tablet) 25 mcg PO DAILYBB BEATRICE Stop: 10/05/24 07:59 Last Admin: 10/01/24 09:29 Dose: 25 mcg Lisinopril (Lisinopril 20 Mg Tab) 20 mg PO DAILY BEATRICE Stop: 10/05/24 08:59 Last Admin: 10/01/24 09:30 Dose: 20 mg Lorazepam (Lorazepam 2 Mg/1 Ml Vial) 1 mg IM BID PRN PRN Reason: Agitation Stop: 10/04/24 15:34 Lorazepam (Lorazepam 1 Mg Tab) 1 mg PO DAILY PRN PRN Reason: restlessness Stop: 10/06/24 02:07 Last Admin: 09/25/24 07:46 Dose: 1 mg Lorazepam (Lorazepam 1 Mg Tab) 1 mg PO HS PRN PRN Reason: insomnia Stop: 10/06/24 21:59 Magnesium Hydroxide (Magnesium Hydroxide Susp 30 Ml Udc) 30 ml PO DAILY PRN PRN Reason: Constipation Stop: 10/04/24 14:11 Melatonin (Melatonin 3 Mg Tab) 3 mg PO HS PRN PRN Reason: Sleep Stop: 10/28/24 14:29 Meloxicam (Meloxicam 7.5 Mg Tab) 15 mg PO DAILY BEATRICE Stop: 10/05/24 08:59 Last Admin: 10/01/24 09:30 Dose: 15 mg Metformin HCl (Metformin Hcl 500 Mg Tab) 1,000 mg PO BID17 BEATRICE Stop: 10/04/24 16:59 Last Admin: 10/01/24 09:31 Dose: 1,000 mg Miscellaneous (Remove Nicoderm Patch) 1 each N/A 2100 BEATRICE Stop: 10/05/24 20:59 Last Admin: 09/30/24 21:34 Dose: 1 each Multivitamins (Multivitamin Tab) 1 tab PO DAILY BEATRICE Stop: 10/05/24 08:59 Last Admin: 10/01/24 09:32 Dose: 1 tab Nicotine (Nicotine 21 Mg/24 Hr Tdsy) 1 patch TD QAM BEATRICE Stop: 10/05/24 09:44 Last Admin: 10/01/24 09:32 Dose: 1 patch Nicotine Polacrilex (Nicotine Polacrilex 2 Mg Gum) 1 piece MT Q2H PRN PRN Reason: smoking cessation Stop: 10/04/24 15:22 Last Admin: 09/29/24 10:35 Dose: 1 piece Paroxetine HCl (Paroxetine Hcl 10 Mg Tab) 30 mg PO DAILY [facility] Stop: 10/25/24 08:59 Last Admin: 10/01/24 09:32 Dose: 30 mg Polyethylene Glycol (Polyethylene (Miralax) 17 Gm Pack) 17 gm PO DAILY BEATRICE Stop: 10/05/24 08:59 Last Admin: 10/01/24 09:32 Dose: Not Given Sennosides (Senna 8.6 Mg Tab) 8.6 mg PO Q2D PRN PRN Reason: constipation Stop: 10/04/24 15:30 Sodium Chloride (Sodium Chloride 0.65% Na Soln 45 Ml (Tehama)) 1 - 2 sprays NA PRN PRN PRN Reason: Nasal Dryness/Congestion Stop: 10/04/24 14:11 Vitamin D (Cholecalciferol 25 Mcg (1000 Units) Tab) 50 mcg PO QAM BEATRICE Stop: 10/05/24 08:59 Last Admin: 10/01/24 09:29 Dose: 50 mcg Mental Health & Subst Abuse Tx Psychiatrist Name of Psychiatrist: Haley Mazariegos (on maternity leave) will be seen by Dr. Juarez at [facility] Psychiatrist's Date Of Appointment With Psychiatric Provider: 09/27/24 Time of Appointment with Psychiatrist: 1:45PM [facility]iatric [facility]ment [facility] [place] [address] Animal Care Taker Name of Animal Care Taker: Linda Morris Phone Number for Animal Care Taker: [phone] Post Discharge Appointments Primary Care Physician Name Of Family Doctor/PCP: Dr. Deonte Martinez - [address] [id number] Primary Care Date of Future Appointment with PCP: 09/28/24 Time of Appointment with PCP: 8AM Provider Appointment Comment: Arrive @ 745AM, will be seen by ROSE Espinal. Check in via [email or web address]. Contact Information Discharge Discharge Address: [address] [place] [id number] (1) Psychosis Psychosis type: schizophrenia Schizophrenia type: paranoid schizophrenia Qualified Code(s): F20.0 - Paranoid schizophrenia
[2024-10-02 07:57] LABS: Hematocrit (blood only) 35.3 % (42.0-52.0); Hemoglobin 11.8 g/dl (14.0-18.0); Immature Granulocytes # (auto) 0.03 K/uL (0.01-0.20); Immature Granulocytes % (auto) 0.3 %; Mean Corpuscular Hemoglobin 30.5 pg (25.0-34.0); Mean Corpuscular Volume 91.2 fL (80.0-100.0); Platelet Count 193 K/uL (130-400); RDW Standard Deviation 40.3 fL (36.4-46.3); Red Blood Count 3.87 M/uL (4.70-6.10); White Blood Count 8.84 K/ul (4.8-10.8)
--- NOTE | 2024-10-02 10:04 | Psychiatric Progress Note ---
Date of Service October 02, 2024 Impression / Recommendations Impression REBA KELLY is a 69-year-old man who currently lives [facility], has a history of schizophrenia, recent subdural hematoma, HTN, Type II diabetes, HLD, BPH and was admitted on 09/04/24 14:12 on a 303 involuntary commitment for psychosis and disorganization and now on a 304 commitment granted on 09/23/2024. Diagnosis: Schizophrenia vs Schizoaffective Disorder Bipolar Type. s/p TBI with subdural hematoma (resolved) with low suspicion for confusion at this time. Pt had been stable on clozapine for many years but seems to have decompensated in the setting of his recent fall. A: Ongoing psychosis and disorganization despite optimization of clozapine and titration of haldol. Will consider cross-taper from haldol to abilify. Will start Depakote taper given limited benefit and goal of lessening polypharmacy given his age. MNPR due to previous disrobing, psychosis, disorganization and need to be able to use bedside urinal Overall, I spent a total of 45 minutes on this case including meeting with the patient, reviewing the chart, nursing report, orders, and documentation. (1) Psychosis: (2) Schizophrenia: (3) Auditory hallucinations: (4) Sialorrhea: (5) Hypersexuality: (6) Hyperlipidemia: (7) Type 2 diabetes mellitus: (8) Hypertension: Plan 10/02/2024: -Taper Depakote to 500mg HS 10/01/24 Continue medication at current doses. Continue disposition planning. 09/30/24: Increase Glycopyrrolate to 2mg bid for hypersalivation. Continue other medication at current doses. 09/29/24: Continue medication regimen. Scheduled for evaluation by the Office of Aging on . 09/28/24: Add Melatonin 3mg qhs. Continue other medication at current doses. 09/27/24: Increase Haldol to 5mg bid Continue other medication at current doses. 09/26/24 Continue medication at current doses. Will review indication for Paxil. Continue orthostatic vital sign monitoring bid (130s-160s/80s today) along with close monitoring given fall risk. 09/25/2024: -Start haldol 2.5mg BID 09/24/2024: -Decrease Paxil to 30mg daily 09/23/2024: -Increase clozapine to 500mg HS 09/22/2024: -Increase Depakote ER to 1000mg HS -Discontinue Ativan HS scheduled, adjust to prn in case contributing to falls -Orthostatic vitals BID -PT consult 09/21/2024: Clozapine level tomorrow AM 09/20/2024: Increase clozapine to 450mg HS. 09/19/2024: Increase Paxil to 30mg BID 09/18/2024: Continue medications and treatment plan 09/17/2024 Discontinue Haloperidol 09/16/2024: Clozapine to 400 mg at bedtime and discontinue a.m. dose 09/15/2024: Increase clozapine to 50 mg in the morning. Increase glycopyrrolate to 1.5 mg twice daily. 09/14/2024: Start Clozapine 25 mg in the morning 09/13/24: Continue medications and treatment plan 09/12/2024: Decrease clozapine to 350 mg at bedtime Start glycopyrrolate 1 mg twice daily Decrease haloperidol to 2.5 mg twice daily 09/11/2024: -Increase clozapine to 400mg HS 09/10/2024: -Increase clozapine to 350mg HS 09/09/2024: -Increase haldol back to 2.5mg TID -Increase ipratropium bromide 0.06% under the tongue to 3 sprays TID for sialorrhea -Increase clozapine to 300mg HS 09/08/2024: -Decrease haldol to 2.5mg HS -Discontinue topiramate 09/07/2024: -Decrease haldol to 2.5mg BID -Increase clozapine to 250mg HS 09/06/2024: -Increase Depakote ER to 500mg -Increase ipratropium bromide 0.06% under the tongue to 2 sprays TID -taper Topiramate to 25mg HS to reduce polypharmacy burden 09/05/2024: The patient [facility] on q15 min checks (behavioral with suicide precautions) for safety. The patient will participate in group, recreational, and milieu therapies and will be offered additional individual and family sessions as clinically appropriate. -Continue psychiatric medications: * Clozapine 200mg HS (consider further dose titration) * Topiramate 25mg BID * Haldol 2.5mg TID * Ativan 1mg HS (goal to taper as sleep improves and stabilizes) -Adjust: * Paxil from 30mg BID to 30mg daily -Start: * Depakote ER 250mg HS -Clozapine level, fasting lipid panel, HBA1c tomorrow AM -Repeat EKG given his age and now on multiple medications that can impact QTc interval Inventory Assets Strengths: supportive living environment, cooperative Needs: safety and stabilization, medication adjustment, additional coping skills, increased outpatient services Suicide Risk Level Suicide Risk Level: Moderate (q15 min suicide checks) (denies SI but with periods of hallucinations and delusions which can negatively impacting his mood ) Suicide Risk Level Comments: Risk Factors Assessment Male: Yes : Yes Do You Have Access To A Gun?: No Health Problems: Yes Mental Health Diagnoses: Yes Substance Use Disorders: No Previous Attempt: No Family History of Suicide: No Previous Psychiatric Hospitalization: Yes Hopelessness: No Protective Factors Assessment [facility] Beliefs: Yes Good Rapport with Provider: Yes Interval History Identifying Information REBA KELLY is a 69-year-old man who currently lives [facility], has a history of schizophrenia, recent subdural hematoma, HTN, Type II diabetes, HLD, BPH and was admitted on 09/04/24 14:12 on a 304 involuntary commitment for psychosis and disorganization. Chief Complaint "Mumbled". Review of Systems Sleep Information Total Hours of Sleep: 4.25 Sleep Comments: Meal Information Percent Meal Consumed - Breakfast: 75 Percent Meal Consumed - Lunch: 90 Percent Meal Consumed - Dinner: 90 Subjective Subjective Patient was seen & assessed and interval progress reviewed with nursing and social work. Continues to have very disrupted sleep. Hasn't been able to tolerate any groups. Was on the exercise bike for a few minutes this morning. Today observed lying in bed. Speaking softly, he reports he is speaking in Cameroonian and Latin. Provided blanket for comfort. Physical Exam Psychiatric Orientation: alert, oriented to person and oriented to place Apperance: appropriately dressed and + disheveled Eye Contact: + fair eye contact Motor Behavior: no abnormal motor movements Speech: normal rate/rhythm/volume of speech (mumbled at times) Affect: + flat affect, + blunted affect, + constricted affect and mood congruent with affect Mood: + anxious mood Thought Process: + tangential thought process, + looseness of associations and + incoherent thought process Thought Content: + preoccupation, + paranoid and + delusions Suicidal Thoughts: denies suicidal thoughts, denies suicidal plan and denies suicidal intent Homicidal Thoughts: denies homicidal thoughts Hallucinations: + auditory hallucinations and + visual hallucinations Cognition: remote memory grossly intact and language grossly intact; + attention not intact Insight: + poor insight Judgment: + poor judgement Vital Signs (Past 24 Hours) Last Vital Signs Temp 36.6 C 10/02/24 04:13 Pulse 95 H 10/02/24 04:14 Resp 17 10/02/24 04:13 BP 149/78 H 10/02/24 04:14 Pulse Ox 100 10/02/24 04:13 O2 Del Method Room Air 10/02/24 04:13 Results & Data ([facility]) Laboratory Results Laboratory Results - last 24 hr 10/02/24 10/02/24 06:52 07:22 WBC 8.84 RBC 3.87 L Hgb 11.8 L Hct 35.3 L MCV 91.2 MCH 30.5 MCHC 33.4 RDW Std Deviation 40.3 RDW Coeff of Kay 12.1 Plt Count 193 MPV 10.7 Immature Gran % (Auto) 0.3 Neut % (Auto) 71.1 Lymph % (Auto) 17.6 Williams % (Auto) 8.1 Eos % (Auto) 2.4 Baso % (Auto) 0.5 Neut # (Auto) 6.28 Lymph # (Auto) 1.56 Williams # (Auto) 0.72 H Eos # (Auto) 0.21 Baso # (Auto) 0.04 Immature Gran # (Auto) 0.03 POC Glucose 109 H Current Inpatient Medications Current Inpatient Medications: Current Inpatient Medications Acetaminophen (Acetaminophen 325 Mg Tab) 650 mg PO Q4H PRN PRN Reason: Headache or Minor Fever Stop: 10/04/24 14:11 Al Hydrox/Mg Hydrox/Simethicone (Aluminum/Magnesium Susp 30 Ml Udc) 30 ml PO Q4H PRN PRN Reason: GI Upset Stop: 10/04/24 14:11 Atorvastatin Calcium (Atorvastatin 40 Mg Tab) 40 mg PO HS [facility]ATRICE Stop: 10/04/24 21:59 Last Admin: 10/01/24 22:19 Dose: 40 mg Bismuth Subsalicylate (Bismuth Subsalicylate 262 Mg Chew) 2 tab PO Q30M PRN PRN Reason: Loose Stool/Diarrhea Stop: 10/04/24 14:11 Clozapine (Clozapine 100 Mg Tab) 500 mg PO HS [facility] Stop: 10/23/24 21:59 Last Admin: 10/01/24 22:20 Dose: 500 mg Cyanocobalamin (Cyanocobalamin (B-12) 100 Mcg Tablet) 100 mcg PO QAM [facility]ICE Stop: 10/05/24 08:59 Last Admin: 10/02/24 08:53 Dose: 100 mcg Divalproex Sodium (Divalproex Extended Release 500 Mg Tab) 1,000 mg PO HS [facility] Stop: 10/22/24 21:59 Last Admin: 10/01/24 22:19 Dose: 1,000 mg Docusate Sodium (Docusate Sodium 100 Mg Cap) 100 mg PO BID [facility] Stop: 10/07/24 20:59 Last Admin: 10/02/24 08:50 Dose: 100 mg Glycopyrrolate (Glycopyrrolate 1 Mg Tab) 2 mg PO BID [facility]RICE Stop: 10/30/24 20:59 Last Admin: 10/02/24 08:52 Dose: 2 mg Haloperidol (Haloperidol 5 Mg Tab) 5 mg PO BID PRN PRN Reason: psychosis Stop: 10/08/24 15:56 Last Admin: 09/25/24 12:32 Dose: 5 mg Haloperidol (Haloperidol 5 Mg Tab) 5 mg PO BID [facility] Stop: 10/27/24 20:59 Last Admin: 10/02/24 08:59 Dose: 5 mg Haloperidol Lactate (Haloperidol Lactate 5 Mg/Ml 1 Ml Vial) 5 mg IM BID PRN PRN Reason: agitation Stop: 10/04/24 15:34 Hydroxyzine HCl (Hydroxyzine Hcl 25 Mg Tab) 50 mg PO HSZ PRN PRN Reason: Insomnia Stop: 10/04/24 14:11 Last Admin: 09/28/24 01:21 Dose: 50 mg Hydroxyzine HCl (Hydroxyzine Hcl 25 Mg Tab) 25 mg PO Q4H PRN PRN Reason: Anxiety Stop: 10/04/24 14:11 Levothyroxine Sodium (Levothyroxine Sodium 25 Mcg Tablet) 25 mcg PO DAILYBB [facility] Stop: 10/05/24 07:59 Last Admin: 10/02/24 08:51 Dose: 25 mcg Lisinopril (Lisinopril 20 Mg Tab) 20 mg PO DAILY [facility] Stop: 10/05/24 08:59 Last Admin: 10/02/24 08:54 Dose: 20 mg Lorazepam (Lorazepam 2 Mg/1 Ml Vial) 1 mg IM BID PRN PRN Reason: Agitation Stop: 10/04/24 15:34 Lorazepam (Lorazepam 1 Mg Tab) 1 mg PO DAILY PRN PRN Reason: restlessness Stop: 10/06/24 02:07 Last Admin: 09/25/24 07:46 Dose: 1 mg Lorazepam (Lorazepam 1 Mg Tab) 1 mg PO HS PRN PRN Reason: insomnia Stop: 10/06/24 21:59 Magnesium Hydroxide (Magnesium Hydroxide Susp 30 Ml Udc) 30 ml PO DAILY PRN PRN Reason: Constipation Stop: 10/04/24 14:11 Melatonin (Melatonin 3 Mg Tab) 3 mg PO HS PRN PRN Reason: Sleep Stop: 10/28/24 14:29 Meloxicam (Meloxicam 7.5 Mg Tab) 15 mg PO DAILY [facility]RICE Stop: 10/05/24 08:59 Last Admin: 10/02/24 08:53 Dose: 15 mg Metformin HCl (Metformin Hcl 500 Mg Tab) 1,000 mg PO BID17 [facility]ATRICE Stop: 10/04/24 16:59 Last Admin: 10/02/24 08:52 Dose: 1,000 mg Miscellaneous (Remove Nicoderm Patch) 1 each N/A 2100 [facility]RICE Stop: 10/05/24 20:59 Last Admin: 10/01/24 22:19 Dose: 1 each Multivitamins (Multivitamin Tab) 1 tab PO DAILY [facility]ATRICE Stop: 10/05/24 08:59 Last Admin: 10/02/24 08:52 Dose: 1 tab Nicotine (Nicotine 21 Mg/24 Hr Tdsy) 1 patch TD QAM [facility]ICE Stop: 10/05/24 09:44 Last Admin: 10/01/24 09:32 Dose: 1 patch Nicotine Polacrilex (Nicotine Polacrilex 2 Mg Gum) 1 piece MT Q2H PRN PRN Reason: smoking cessation Stop: 10/04/24 15:22 Last Admin: 09/29/24 10:35 Dose: 1 piece Paroxetine HCl (Paroxetine Hcl 10 Mg Tab) 30 mg PO DAILY [facility]RICE Stop: 10/25/24 08:59 Last Admin: 10/02/24 08:53 Dose: 30 mg Polyethylene Glycol (Polyethylene (Miralax) 17 Gm Pack) 17 gm PO DAILY BEATRICE Stop: 10/05/24 08:59 Last Admin: 10/02/24 09:00 Dose: 17 gm Sennosides (Senna 8.6 Mg Tab) 8.6 mg PO Q2D PRN PRN Reason: constipation Stop: 10/04/24 15:30 Sodium Chloride (Sodium Chloride 0.65% Na Soln 45 Ml ([place])) 1 - 2 sprays NA P RN PRN PRN Reason: Nasal Dryness/Congestion Stop: 10/04/24 14:11 Vitamin D (Cholecalciferol 25 Mcg (1000 Units) Tab) 50 mcg PO QAM [facility]ICE Stop: 10/05/24 08:59 Last Admin: 10/02/24 08:51 Dose: 50 mcg Mental Health & Subst Abuse Tx Psychiatrist Name of Psychiatrist: Haley Mazariegos (on maternity leave) will be seen by Dr. Juarez at [facility] Psychiatrist's Date Of Appointment With Psychiatric Provider: 09/27/24 Time of Appointment with Psychiatrist: 1:45PM Psychiatric Appointment Comment: [address] [place], [place] [id number] [employer]ane [employer]er Helper Name of Field Cane Scaler Helper: [facility] skilled nursing case manager Phone Number for Field Cane Scaler Helper: [phone] Post Discharge Appointments Primary Care Physician Name Of Family Doctor/PCP: Dr. Deonte Martinez - [address] [place] [address] Primary Care Date of Future Appointment with PCP: 09/28/24 Time of Appointment with PCP: 8AM Provider Appointment Comment: Arrive @ 745AM, will be seen by ROSE Espinal. Check in via [employer]. P[employer]ing Assist[employer]. Contact Information Discharge Discharge Address: [address] [place] [address] (1) Psychosis Psychosis type: schizophrenia Schizophrenia type: paranoid schizophrenia Qualified Code(s): F20.0 - Paranoid schizophrenia
[2024-10-02] MEDS: DIVALPROEX EXTENDED RELEASE 500 MG TAB PO SCH (21:01)
[2024-10-02] MEDS: ACETAMINOPHEN 325 MG TAB PO PRN (21:03)
[2024-10-02] MEDS: MAGNESIUM HYDROXIDE SUSP 30 ML UDC PO PRN (21:05)
--- NOTE | 2024-10-03 09:59 | Psychiatric Progress Note ---
Date of Service October 03, 2024 Impression / Recommendations Impression REBA KELLY is a 69-year-old man who currently lives [facility], has a history of schizophrenia, recent subdural hematoma, HTN, Type II diabetes, HLD, BPH and was admitted on 09/04/24 14:12 on a 303 involuntary commitment for psychosis and disorganization and now on a 304 commitment granted on 09/23/2024. Diagnosis: Schizophrenia vs Schizoaffective Disorder Bipolar Type. s/p TBI with subdural hematoma (resolved) with low suspicion for confusion at this time. Pt had been stable on clozapine for many years but seems to have decompensated in the setting of his recent fall. A: Ongoing psychosis with preoccupation with jewish themes again today. No medication side effects, slept much better last night, unclear why. ANC remains stable. MNPR due to previous disrobing, psychosis, disorganization and need to be able to use bedside urinal Overall, I spent a total of 38 minutes on this case including meeting with the patient, reviewing the chart, nursing report, orders, and documentation. (1) Psychosis: (2) Schizophrenia: (3) Auditory hallucinations: (4) Sialorrhea: (5) Hypersexuality: (6) Hyperlipidemia: (7) Type 2 diabetes mellitus: (8) Hypertension: Plan 10/03/2024: -Continue current medications and tx plan. 10/02/2024: -Taper Depakote to 500mg HS 10/01/24 Continue medication at current doses. Continue disposition planning. 09/30/24: Increase Glycopyrrolate to 2mg bid for hypersalivation. Continue other medication at current doses. 09/29/24: Continue medication regimen. Scheduled for evaluation by the Office of Aging on . 09/28/24: Add Melatonin 3mg qhs. Continue other medication at current doses. 09/27/24: Increase Haldol to 5mg bid Continue other medication at current doses. 09/26/24 Continue medication at current doses. Will review indication for Paxil. Continue orthostatic vital sign monitoring bid (130s-160s/80s today) along with close monitoring given fall risk. 09/25/2024: -Start haldol 2.5mg BID 09/24/2024: -Decrease Paxil to 30mg daily 09/23/2024: -Increase clozapine to 500mg HS 09/22/2024: -Increase Depakote ER to 1000mg HS -Discontinue Ativan HS scheduled, adjust to prn in case contributing to falls -Orthostatic vitals BID -PT consult 09/21/2024: Clozapine level tomorrow AM 09/20/2024: Increase clozapine to 450mg HS. 09/19/2024: Increase Paxil to 30mg BID 09/18/2024: Continue medications and treatment plan 09/17/2024 Discontinue Haloperidol 09/16/2024: Clozapine to 400 mg at bedtime and discontinue a.m. dose 09/15/2024: Increase clozapine to 50 mg in the morning. Increase glycopyrrolate to 1.5 mg twice daily. 09/14/2024: Start Clozapine 25 mg in the morning 09/13/24: Continue medications and treatment plan 09/12/2024: Decrease clozapine to 350 mg at bedtime Start glycopyrrolate 1 mg twice daily Decrease haloperidol to 2.5 mg twice daily 09/11/2024: -Increase clozapine to 400mg HS 09/10/2024: -Increase clozapine to 350mg HS 09/09/2024: -Increase haldol back to 2.5mg TID -Increase ipratropium bromide 0.06% under the tongue to 3 sprays TID for sialorrhea -Increase clozapine to 300mg HS 09/08/2024: -Decrease haldol to 2.5mg HS -Discontinue topiramate 09/07/2024: -Decrease haldol to 2.5mg BID -Increase clozapine to 250mg HS 09/06/2024: -Increase Depakote ER to 500mg -Increase ipratropium bromide 0.06% under the tongue to 2 sprays TID -taper Topiramate to 25mg HS to reduce polypharmacy burden 09/05/2024: The patient was admitted to the [facility] on q15 min checks (behavioral with suicide precautions) for safety. The patient will participate in group, recreational, and milieu therapies and will be offered additional individual and family sessions as clinically appropriate. -Continue psychiatric medications: * Clozapine 200mg HS (consider further dose titration) * Topiramate 25mg BID * Haldol 2.5mg TID * Ativan 1mg HS (goal to taper as sleep improves and stabilizes) -Adjust: * Paxil from 30mg BID to 30mg daily -Start: * Depakote ER 250mg HS -Clozapine level, fasting lipid panel, HBA1c tomorrow AM -Repeat EKG given his age and now on multiple medications that can impact QTc interval Inventory Assets Strengths: supportive living environment, cooperative Needs: safety and stabilization, medication adjustment, additional coping skills, increased outpatient services Suicide Risk Level Suicide Risk Level: Moderate (q15 min suicide checks) (denies SI but with periods of hallucinations and delusions which can negatively impacting his mood ) Suicide Risk Level Comments: Risk Factors Assessment Male: Yes : Yes Do You Have Access To A Gun?: No Health Problems: Yes Mental Health Diagnoses: Yes Substance Use Disorders: No Previous Attempt: No Family History of Suicide: No Previous Psychiatric Hospitalization: Yes Hopelessness: No Protective Factors Assessment 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 Chief Complaint "You're beautiful, bless you". Review of Systems Sleep Information Total Hours of Sleep: 7.75 Meal Information Percent Meal Consumed - Breakfast: 100 Percent Meal Consumed - Lunch: 100 Percent Meal Consumed - Dinner: 100 Subjective Subjective Patient was seen & assessed and interval progress reviewed with nursing and social work. Has been removing his nicotine patch and trying to chew it or holding it in his hands. Did have a more organized conversation with the RN. Yesterday made comment to RN that if he didn't have bacteria he would kiss her. More irritable briefly when RN tried to get the nicotine patch back. Slept well last night. Today ongoing focus on blessing the staff and offering compliments of female staff. tells me he continues to "hallucinate". Denies any medication side effects. Reading his bible intermittently. Physical Exam Psychiatric Orientation: alert, oriented to person and oriented to place Apperance: appropriately dressed and + disheveled Eye Contact: good eye contact Motor Behavior: no abnormal motor movements Speech: normal rate/rhythm/volume of speech (mumbled at times) Affect: + labile affect Mood: + anxious mood and + irritable mood Thought Process: + looseness of associations and + perseveration Thought Content: + preoccupation, + paranoid and + delusions Suicidal Thoughts: denies suicidal thoughts, denies suicidal plan and denies suicidal intent Homicidal Thoughts: denies homicidal thoughts Hallucinations: + auditory hallucinations; no visual hallucinations Cognition: remote memory grossly intact, attention grossly intact and language grossly intact Insight: + poor insight Judgment: + poor judgement Vital Signs (Past 24 Hours) Last Vital Signs Temp 36.7 C 10/03/24 06:32 Pulse 74 10/03/24 06:33 Resp 17 10/03/24 06:32 BP 140/90 10/03/24 06:33 Pulse Ox 96 10/03/24 06:32 O2 Del Method Room Air 10/03/24 06:32 Results & Data ([facility]) Laboratory Results Laboratory Results - last 24 hr 10/03/24 06:30 POC Glucose 113 H Current Inpatient Medications Current Inpatient Medications: Current Inpatient Medications Acetaminophen (Acetaminophen 325 Mg Tab) 650 mg PO Q4H PRN PRN Reason: Headache or Minor Fever Stop: 10/04/24 14:11 Last Admin: 10/02/24 21:03 Dose: 650 mg Al Hydrox/Mg Hydrox/Simethicone (Aluminum/Magnesium Susp 30 Ml Udc) 30 ml PO Q4H PRN PRN Reason: GI Upset Stop: 10/04/24 14:11 Atorvastatin Calcium (Atorvastatin 40 Mg Tab) 40 mg PO HS [facility] Stop: 10/04/24 21:59 Last Admin: 10/02/24 21:02 Dose: 40 mg Bismuth Subsalicylate (Bismuth Subsalicylate 262 Mg Chew) 2 tab PO Q30M PRN PRN Reason: Loose Stool/Diarrhea Stop: 10/04/24 14:11 Clozapine (Clozapine 100 Mg Tab) 500 mg PO HS [facility] Stop: 10/23/24 21:59 Last Admin: 10/02/24 21:02 Dose: 500 mg Cyanocobalamin (Cyanocobalamin (B-12) 100 Mcg Tablet) 100 mcg PO QAM [facility] Stop: 10/05/24 08:59 Last Admin: 10/03/24 08:53 Dose: 100 mcg Divalproex Sodium (Divalproex Extended Release 500 Mg Tab) 500 mg PO HS [facility] Stop: 11/01/24 21:59 Last Admin: 10/02/24 21:01 Dose: 500 mg Docusate Sodium (Docusate Sodium 100 Mg Cap) 100 mg PO BID [facility] Stop: 10/07/24 20:59 Last Admin: 10/03/24 08:53 Dose: 100 mg Glycopyrrolate (Glycopyrrolate 1 Mg Tab) 2 mg PO BID [facility] Stop: 10/30/24 20:59 Last Admin: 10/03/24 08:53 Dose: 2 mg Haloperidol (Haloperidol 5 Mg Tab) 5 mg PO BID PRN PRN Reason: psychosis Stop: 10/08/24 15:56 Last Admin: 10/02/24 12:10 Dose: 5 mg Haloperidol (Haloperidol 5 Mg Tab) 5 mg PO BID [facility] Stop: 10/27/24 20:59 Last Admin: 10/03/24 08:54 Dose: 5 mg Haloperidol Lactate (Haloperidol Lactate 5 Mg/Ml 1 Ml Vial) 5 mg IM BID PRN PRN Reason: agitation Stop: 10/04/24 15:34 Hydroxyzine HCl (Hydroxyzine Hcl 25 Mg Tab) 50 mg PO HSZ PRN PRN Reason: Insomnia Stop: 10/04/24 14:11 Last Admin: 09/28/24 01:21 Dose: 50 mg Hydroxyzine HCl (Hydroxyzine Hcl 25 Mg Tab) 25 mg PO Q4H PRN PRN Reason: Anxiety Stop: 10/04/24 14:11 Levothyroxine Sodium (Levothyroxine Sodium 25 Mcg Tablet) 25 mcg PO DAILYBB [facility] Stop: 10/05/24 07:59 Last Admin: 10/03/24 08:53 Dose: 25 mcg Lisinopril (Lisinopril 20 Mg Tab) 20 mg PO DAILY [facility] Stop: 10/05/24 08:59 Last Admin: 10/03/24 08:55 Dose: 20 mg Lorazepam (Lorazepam 2 Mg/1 Ml Vial) 1 mg IM BID PRN PRN Reason: Agitation Stop: 10/04/24 15:34 Lorazepam (Lorazepam 1 Mg Tab) 1 mg PO DAILY PRN PRN Reason: restlessness Stop: 10/06/24 02:07 Last Admin: 09/25/24 07:46 Dose: 1 mg Lorazepam (Lorazepam 1 Mg Tab) 1 mg PO HS PRN PRN Reason: insomnia Stop: 10/06/24 21:59 Magnesium Hydroxide (Magnesium Hydroxide Susp 30 Ml Udc) 30 ml PO DAILY PRN PRN Reason: Constipation Stop: 10/04/24 14:11 Last Admin: 10/02/24 21:05 Dose: 30 ml Melatonin (Melatonin 3 Mg Tab) 3 mg PO HS PRN PRN Reason: Sleep Stop: 10/28/24 14:29 Meloxicam (Meloxicam 7.5 Mg Tab) 15 mg PO DAILY [facility] Stop: 10/05/24 08:59 Last Admin: 10/03/24 08:54 Dose: 15 mg Metformin HCl (Metformin Hcl 500 Mg Tab) 1,000 mg PO BID17 [facility] Stop: 10/04/24 16:59 Last Admin: 10/03/24 08:55 Dose: 1,000 mg Miscellaneous (Remove Nicoderm Patch) 1 each N/A 2100 [facility] Stop: 10/05/24 20:59 Last Admin: 10/02/24 21:10 Dose: 1 each Multivitamins (Multivitamin Tab) 1 tab PO DAILY [facility] Stop: 10/05/24 08:59 Last Admin: 10/03/24 08:55 Dose: 1 tab Nicotine (Nicotine 21 Mg/24 Hr Tdsy) 1 patch TD QAM [facility] Stop: 10/05/24 09:44 Last Admin: 10/03/24 09:01 Dose: Not Given Nicotine Polacrilex (Nicotine Polacrilex 2 Mg Gum) 1 piece MT Q2H PRN PRN Reason: smoking cessation Stop: 10/04/24 15:22 Last Admin: 09/29/24 10:35 Dose: 1 piece Paroxetine HCl (Paroxetine Hcl 10 Mg Tab) 30 mg PO DAILY [facility] Stop: 10/25/24 08:59 Last Admin: 10/03/24 08:55 Dose: 30 mg Polyethylene Glycol (Polyethylene (Miralax) 17 Gm Pack) 17 gm PO DAILY [facility] Stop: 10/05/24 08:59 Last Admin: 10/03/24 08:56 Dose: 17 gm Sennosides (Senna 8.6 Mg Tab) 8.6 mg PO Q2D PRN PRN Reason: constipation Stop: 10/04/24 15:30 Sodium Chloride (Sodium Chloride 0.65% Na Soln 45 Ml ([place])) 1 - 2 sprays NA PRN PRN PRN Reason: Nasal Dryness/Congestion Stop: 07/21/25 14:11 Vitamin D (Cholecalciferol 25 Mcg (1000 Units) Tab) 50 mcg PO QAM [facility] Stop: 10/05/24 08:59 Last Admin: 10/03/24 08:53 Dose: 50 mcg Mental Health & Subst Abuse Tx Psychiatrist Name of Psychiatrist: Haley Mazariegos (on maternity leave) will be seen by Dr. Juarez at [facility] Psychiatrist's Date Of Appointment With Psychiatric Provider: 09/27/24 Time of Appointment with Psychiatrist: 1:45PM Psychiatric Appointment Comment: [facility] [place] Automation Controls Specialist Name of Automation Controls Specialist: Evelyn Duke [facility] unit trimming caser Phone Number for Automation Controls Specialist: [phone] Post Discharge Appointments Primary Care Physician Name Of Family Doctor/PCP: Dr. Deonte Martinez - [address] [place] [address] Primary Care Date of Future Appointment with PCP: 09/28/24 Time of Appointment with PCP: 8AM Provider Appointment Comment: Arrive @ 745AM, will be seen by ROSE Espinal. Check in via [employer]. [facility] meds. Contact Information Discharge Discharge Address: [address] [place] [address] [place] [address] (1) Psychosis Psychosis type: schizophrenia Schizophrenia type: paranoid schizophrenia Qualified Code(s): F20.0 - Paranoid schizophrenia
[2024-10-04] MEDS: MELATONIN 3 MG TAB PO PRN (00:26)
--- NOTE | 2024-10-04 09:01 | Psychiatric Progress Note ---
Date of Service October 04, 2024 Impression / Recommendations Impression REBA KELLY is a 69-year-old man who currently lives [facility], has a history of schizophrenia, recent subdural hematoma, HTN, Type II diabetes, HLD, BPH and was admitted on 09/04/24 14:12 on a 303 involuntary commitment for psychosis and disorganization and now on a 304 commitment granted on 09/23/2024. Diagnosis: Schizophrenia vs Schizoaffective Disorder Bipolar Type. s/p TBI with subdural hematoma (resolved) with low suspicion for confusion at this time. Pt had been stable on clozapine for many years but seems to have decompensated in the setting of his recent fall. A: Ongoing psychosis but hallucinations have been lessening with increased haldol. No episodes of incontinence. Continues to struggle with sleep, will schedule melatonin. Discontinue Depakote to reduce polypharmacy. Then will consider further cautious clozapine titration. Completed 30 day treatment team review, given extended length of stay and no concern for elopement he is deemed appropriate to be able to go outside with staff. MNPR due to previous disrobing, psychosis, disorganization and need to be able to use bedside urinal Overall, I spent a total of 35 minutes on this case including meeting with the patient, reviewing the chart, nursing report, orders, and documentation. (1) Psychosis: (2) Schizophrenia: (3) Auditory hallucinations: (4) Sialorrhea: (5) Hypersexuality: (6) Hyperlipidemia: (7) Type 2 diabetes mellitus: (8) Hypertension: Plan 10/04/2024: -Discontinue Depakote -Schedule melatonin 3mg HS 10/03/2024: -Continue current medications and tx plan. 10/02/2024: -Taper Depakote to 500mg HS 10/01/24 Continue medication at current doses. Continue disposition planning. 09/30/24: Increase Glycopyrrolate to 2mg bid for hypersalivation. Continue other medication at current doses. 09/29/24: Continue medication regimen. Scheduled for evaluation by the [facility] of Aging on . 09/28/24: Add Melatonin 3mg qhs. Continue other medication at current doses. 09/27/24: Increase Haldol to 5mg bid Continue other medication at current doses. 09/26/24 Continue medication at current doses. Will review indication for Paxil. Continue orthostatic vital sign monitoring bid (130s-160s/80s today) along with close monitoring given fall risk. 09/25/2024: -Start haldol 2.5mg BID 09/24/2024: -Decrease Paxil to 30mg daily 09/23/2024: -Increase clozapine to 500mg HS 09/22/2024: -Increase Depakote ER to 1000mg HS -Discontinue Ativan HS scheduled, adjust to prn in case contributing to falls -Orthostatic vitals BID -PT consult 09/21/2024: Clozapine level tomorrow AM 09/20/2024: Increase clozapine to 450mg HS. 09/19/2024: Increase Paxil to 30mg BID 09/18/2024: Continue medications and treatment plan 09/17/2024 Discontinue Haloperidol 09/16/2024: Clozapine to 400 mg at bedtime and discontinue a.m. dose 09/15/2024: Increase clozapine to 50 mg in the morning. Increase glycopyrrolate to 1.5 mg twice daily. 09/14/2024: Start Clozapine 25 mg in the morning 09/13/24: Continue medications and treatment plan 09/12/2024: Decrease clozapine to 350 mg at bedtime Start glycopyrrolate 1 mg twice daily Decrease haloperidol to 2.5 mg twice daily 09/11/2024: -Increase clozapine to 400mg HS 09/10/2024: -Increase clozapine to 350mg HS 09/09/2024: -Increase haldol back to 2.5mg TID -Increase ipratropium bromide 0.06% under the tongue to 3 sprays TID for sialorrhea -Increase clozapine to 300mg HS 09/08/2024: -Decrease haldol to 2.5mg HS -Discontinue topiramate 09/07/2024: -Decrease haldol to 2.5mg BID -Increase clozapine to 250mg HS 09/06/2024: -Increase Depakote ER to 500mg -Increase ipratropium bromide 0.06% under the tongue to 2 sprays TID -taper Topiramate to 25mg HS to reduce polypharmacy burden 09/05/2024: The patient was admitted to the [facility]) on q15 min checks (behavioral with suicide precautions) for safety. The patient will participate in group, recreational, and milieu therapies and will be offered additional individual and family sessions as clinically appropriate. -Continue psychiatric medications: * Clozapine 200mg HS (consider further dose titration) * Topiramate 25mg BID * Haldol 2.5mg TID * Ativan 1mg HS (goal to taper as sleep improves and stabilizes) -Adjust: * Paxil from 30mg BID to 30mg daily -Start: * Depakote ER 250mg HS -Clozapine level, fasting lipid panel, HBA1c tomorrow AM -Repeat EKG given his age and now on multiple medications that can impact QTc interval Inventory Assets Strengths: supportive living environment, cooperative Needs: safety and stabilization, medication adjustment, additional coping skills, increased outpatient services Suicide Risk Level Suicide Risk Level: Moderate (q15 min suicide checks) (denies SI but with periods of hallucinations and delusions which can negatively impacting his mood ) Suicide Risk Level Comments: Risk Factors Assessment Male: Yes : Yes Do You Have Access To A Gun?: No Health Problems: Yes Mental Health Diagnoses: Yes Substance Use Disorders: No Previous Attempt: No Family History of Suicide: No Previous Psychiatric Hospitalization: Yes Hopelessness: No Protective Factors Assessment Yazidi Beliefs: Yes Good Rapport with Provider: Yes Interval History Identifying Information REBA KELLY is a 69-year-old man who currently lives [facility], has a history of schizophrenia, recent subdural hematoma, HTN, Type II diabetes, HLD, BPH and was admitted on 09/04/24 14:12 on a 304 involuntary commitment for psychosis and disorganization. Chief Complaint "About the same". Review of Systems Sleep Information Total Hours of Sleep: 5.25 Sleep Comments: Melatonin @ 0028 Meal Information Percent Meal Consumed - Breakfast: 100 Percent Meal Consumed - Lunch: 50 Percent Meal Consumed - Dinner: 95 Subjective Subjective Patient was seen & assessed and interval progress reviewed with treatment team. Attended community meeting last evening and rated his mood as "10/10". Asks me to call him Willian. Lying on his bed, states his feels good and that "I like my life". Ongoing hallucinations but he reports these are less pronounced and bothersome. Asks me if I have a , then tells me he had a Celia. Asks if I can get him a "Quaalude 714", asked why he wants this laughs and tells me "to get drunk". Physical Exam Psychiatric Orientation: alert, oriented to person and oriented to place Apperance: appropriately dressed and + disheveled Eye Contact: good eye contact Motor Behavior: no abnormal motor movements Speech: normal rate/rhythm/volume of speech (mumbled at times) Affect: euthymic affect Mood: no depressed mood and no anxious mood Thought Process: + looseness of associations and + perseveration Thought Content: + preoccupation and + delusions Suicidal Thoughts: denies suicidal thoughts, denies suicidal plan and denies suicidal intent Homicidal Thoughts: denies homicidal thoughts Hallucinations: + auditory hallucinations; no visual hallucinations Cognition: remote memory grossly intact, attention grossly intact and language grossly intact Insight: + poor insight Judgment: + poor judgement Vital Signs (Past 24 Hours) Last Vital Signs Temp 36.4 C 10/04/24 06:29 Pulse 89 10/03/24 21:00 Resp 18 10/04/24 06:29 BP 130/83 10/03/24 21:00 Pulse Ox 96 10/04/24 06:29 O2 Del Method Room Air 10/04/24 06:29 Results & Data ([facility]) Laboratory Results Laboratory Results - last 24 hr 10/04/24 06:20 POC Glucose 89 Current Inpatient Medications Current Inpatient Medications: Current Inpatient Medications Acetaminophen (Acetaminophen 325 Mg Tab) 650 mg PO Q4H PRN PRN Reason: Headache or Minor Fever Stop: 11/02/24 14:11 Last Admin: 10/02/24 21:03 Dose: 650 mg Al Hydrox/Mg Hydrox/Simethicone (Aluminum/Magnesium Susp 30 Ml Udc) 30 ml PO Q4H PRN PRN Reason: GI Upset Stop: 11/02/24 14:11 Atorvastatin Calcium (Atorvastatin 40 Mg Tab) 40 mg PO HS BEATRICE Stop: 11/02/24 21:59 Last Admin: 10/03/24 20:39 Dose: 40 mg Bismuth Subsalicylate (Bismuth Subsalicylate 262 Mg Chew) 2 tab PO Q30M PRN PRN Reason: Loose Stool/Diarrhea Stop: 11/02/24 14:11 Clozapine (Clozapine 100 Mg Tab) 500 mg PO HS BEATRICE Stop: 10/23/24 21:59 Last Admin: 10/03/24 20:39 Dose: 500 mg Cyanocobalamin (Cyanocobalamin (B-12) 100 Mcg Tablet) 100 mcg PO QAM [facility] Stop: 11/02/24 08:59 Last Admin: 10/03/24 08:53 Dose: 100 mcg Divalproex Sodium (Divalproex Extended Release 500 Mg Tab) 500 mg PO HS [facility] Stop: 11/01/24 21:59 Last Admin: 10/03/24 20:40 Dose: 500 mg Docusate Sodium (Docusate Sodium 100 Mg Cap) 100 mg PO BID BEATRICE Stop: 11/02/24 20:59 Last Admin: 10/03/24 20:38 Dose: 100 mg Glycopyrrolate (Glycopyrrolate 1 Mg Tab) 2 mg PO BID BEATRICE Stop: 10/30/24 20:59 Last Admin: 10/03/24 20:38 Dose: 2 mg Haloperidol (Haloperidol 5 Mg Tab) 5 mg PO BID PRN PRN Reason: psychosis Stop: 11/02/24 09:02 Last Admin: 10/02/24 12:10 Dose: 5 mg Haloperidol (Haloperidol 5 Mg Tab) 5 mg PO BID BEATRICE Stop: 10/27/24 20:59 Last Admin: 10/03/24 20:39 Dose: 5 mg Haloperidol Lactate (Haloperidol Lactate 5 Mg/Ml 1 Ml Vial) 5 mg IM BID PRN PRN Reason: agitation Stop: 11/02/24 15:34 Hydroxyzine HCl (Hydroxyzine Hcl 25 Mg Tab) 50 mg PO HSZ PRN PRN Reason: Insomnia Stop: 11/02/24 14:11 Last Admin: 09/28/24 01:21 Dose: 50 mg Hydroxyzine HCl (Hydroxyzine Hcl 25 Mg Tab) 25 mg PO Q4H PRN PRN Reason: Anxiety Stop: 11/02/24 14:11 Levothyroxine Sodium (Levothyroxine Sodium 25 Mcg Tablet) 25 mcg PO DAILYBB [facility] Stop: 11/02/24 07:59 Last Admin: 10/03/24 08:53 Dose: 25 mcg Lisinopril (Lisinopril 20 Mg Tab) 20 mg PO DAILY [facility] Stop: 11/02/24 08:59 Last Admin: 10/03/24 08:55 Dose: 20 mg Lorazepam (Lorazepam 2 Mg/1 Ml Vial) 1 mg IM BID PRN PRN Reason: Agitation Stop: 11/02/24 15:34 Lorazepam (Lorazepam 1 Mg Tab) 1 mg PO DAILY PRN PRN Reason: restlessness Stop: 11/02/24 02:10 Last Admin: 09/25/24 07:46 Dose: 1 mg Lorazepam (Lorazepam 1 Mg Tab) 1 mg PO HS PRN PRN Reason: insomnia Stop: 11/02/24 16:13 Magnesium Hydroxide (Magnesium Hydroxide Susp 30 Ml Udc) 30 ml PO DAILY PRN PRN Reason: Constipation Stop: 11/02/24 14:11 Last Admin: 10/02/24 21:05 Dose: 30 ml Melatonin (Melatonin 3 Mg Tab) 3 mg PO HS PRN PRN Reason: Sleep Stop: 10/28/24 14:29 Last Admin: 10/04/24 00:26 Dose: 3 mg Meloxicam (Meloxicam 7.5 Mg Tab) 15 mg PO DAILY BEATRICE Stop: 11/02/24 08:59 Last Admin: 10/03/24 08:54 Dose: 15 mg Metformin HCl (Metformin Hcl 500 Mg Tab) 1,000 mg PO BID17 BEATRICE Stop: 11/02/24 16:59 Last Admin: 10/03/24 17:18 Dose: 1,000 mg Miscellaneous (Remove Nicoderm Patch) 1 each N/A 2100 BEATRICE Stop: 11/02/24 20:59 Last Admin: 10/03/24 21:30 Dose: Not Given Multivitamins (Multivitamin Tab) 1 tab PO DAILY BEATRICE Stop: 11/02/24 08:59 Last Admin: 10/03/24 08:55 Dose: 1 tab Nicotine (Nicotine 21 Mg/24 Hr Tdsy) 1 patch TD QAM BEATRICE Stop: 11/02/24 09:44 Last Admin: 10/03/24 09:01 Dose: Not Given Nicotine Polacrilex (Nicotine Polacrilex 2 Mg Gum) 1 piece MT Q2H PRN PRN Reason: smoking cessation Stop: 11/02/24 15:22 Last Admin: 09/29/24 10:35 Dose: 1 piece Paroxetine HCl (Paroxetine Hcl 10 Mg Tab) 30 mg PO DAILY BEATRICE Stop: 10/25/24 08:59 Last Admin: 10/03/24 08:55 Dose: 30 mg Polyethylene Glycol (Polyethylene (Miralax) 17 Gm Pack) 17 gm PO DAILY BEATRICE Stop: 11/02/24 08:59 Last Admin: 10/03/24 08:56 Dose: 17 gm Sennosides (Senna 8.6 Mg Tab) 8.6 mg PO Q2D PRN PRN Reason: constipation Stop: 11/02/24 15:30 Sodium Chloride (Sodium Chloride 0.65% Na Soln 45 Ml ([place])) 1 - 2 sprays NA PRN PRN PRN Reason: Nasal Dryness/Congestion Stop: 11/02/24 14:11 Vitamin D (Cholecalciferol 25 Mcg (1000 Units) Tab) 50 mcg PO QAM [facility]ATRICE Stop: 11/02/24 08:59 Last Admin: 10/03/24 08:53 Dose: 50 mcg Mental Health & Subst Abuse Tx Psychiatrist Name of Psychiatrist: Haley Mazariegos (on maternity leave) will be seen by Dr. Juarez at [facility] Psychiatrist's Date Of Appointment With Psychiatric Provider: 09/27/24 Time of Appointment with Psychiatrist: 1:45PM Psychiatric Appointment Comment: [address] [place] [address] Food Products Sales Representative Name of Food Products Sales Representative: Evelyn Ch service unit case maker Phone Number for Food Products Sales Representative: [phone] Post Discharge Appointments Primary Care Physician Name Of Family Doctor/PCP: Dr. Deonte Martinez - [address] [place] [address] Primary Care Date of Future Appointment with PCP: 09/28/24 Time of Appointment with PCP: 8AM Provider Appointment Comment: Arrive @ 745AM, will be seen by ROSE Espinal. Check in via [employer]. [facility] meds. Contact Information Discharge Discharge Address: [address] [place] [id number] (1) Psychosis Psychosis type: schizophrenia Schizophrenia type: paranoid schizophrenia Qualified Code(s): F20.0 - Paranoid schizophrenia
[2024-10-04] MEDS: MELATONIN 3 MG TAB PO SCH (21:23)
--- NOTE | 2024-10-05 08:56 | Psychiatric Progress Note ---
Date of Service October 05, 2024 Impression / Recommendations Impression REBA KELLY is a 69-year-old man who currently lives [facility], has a history of schizophrenia, recent subdural hematoma, HTN, Type II diabetes, HLD, BPH and was admitted on 09/04/24 14:12 on a 303 involuntary commitment for psychosis and disorganization and now on a 304 commitment granted on 09/23/2024. Diagnosis: Schizophrenia vs Schizoaffective Disorder Bipolar Type. s/p TBI with subdural hematoma (resolved) with low suspicion for confusion at this time. Pt had been stable on clozapine for many years but seems to have decompensated in the setting of his recent fall. A: Ongoing psychosis with some increase in hallucinations today. Will titrate clozapine further. Will also add topical cream for suspected hemorrhoids and scheduled Tylenol for a few days as he struggles to identify and ask for pain medication. MNPR due to previous disrobing, psychosis, disorganization and need to be able to use bedside urinal Overall, I spent a total of 40 minutes on this case including meeting with the patient, reviewing the chart, nursing report, orders, and documentation. (1) Psychosis: (2) Schizophrenia: (3) Auditory hallucinations: (4) Sialorrhea: (5) Hypersexuality: (6) Hyperlipidemia: (7) Type 2 diabetes mellitus: (8) Hypertension: Plan 10/05/2024: -Increase clozapine to 600mg HS 10/04/2024: -Discontinue Depakote -Schedule melatonin 3mg HS 10/03/2024: -Continue current medications and tx plan. 10/02/2024: -Taper Depakote to 500mg HS 10/01/24 Continue medication at current doses. Continue disposition planning. 09/30/24: Increase Glycopyrrolate to 2mg bid for hypersalivation. Continue other medication at current doses. 09/29/24: Continue medication regimen. Scheduled for evaluation by the Office of Aging on . 09/28/24: Add Melatonin 3mg qhs. Continue other medication at current doses. 09/27/24: Increase Haldol to 5mg bid Continue other medication at current doses. 09/26/24 Continue medication at current doses. Will review indication for Paxil. Continue orthostatic vital sign monitoring bid (130s-160s/80s today) along with close monitoring given fall risk. 09/25/2024: -Start haldol 2.5mg BID 09/24/2024: -Decrease Paxil to 30mg daily 09/23/2024: -Increase clozapine to 500mg HS 09/22/2024: -Increase Depakote ER to 1000mg HS -Discontinue Ativan HS scheduled, adjust to prn in case contributing to falls -Orthostatic vitals BID -PT consult 09/21/2024: Clozapine level tomorrow AM 09/20/2024: Increase clozapine to 450mg HS. 09/19/2024: Increase Paxil to 30mg BID 09/18/2024: Continue medications and treatment plan 09/17/2024 Discontinue Haloperidol 09/16/2024: Clozapine to 400 mg at bedtime and discontinue a.m. dose 09/15/2024: Increase clozapine to 50 mg in the morning. Increase glycopyrrolate to 1.5 mg twice daily. 09/14/2024: Start Clozapine 25 mg in the morning 09/13/24: Continue medications and treatment plan 09/12/2024: Decrease clozapine to 350 mg at bedtime Start glycopyrrolate 1 mg twice daily Decrease haloperidol to 2.5 mg twice daily 09/11/2024: -Increase clozapine to 400mg HS 09/10/2024: -Increase clozapine to 350mg HS 09/09/2024: -Increase haldol back to 2.5mg TID -Increase ipratropium bromide 0.06% under the tongue to 3 sprays TID for sialorrhea -Increase clozapine to 300mg HS 09/08/2024: -Decrease haldol to 2.5mg HS -Discontinue topiramate 09/07/2024: -Decrease haldol to 2.5mg BID -Increase clozapine to 250mg HS 09/06/2024: -Increase Depakote ER to 500mg -Increase ipratropium bromide 0.06% under the tongue to 2 sprays TID -taper Topiramate to 25mg HS to reduce polypharmacy burden 09/05/2024: The patient was admitted to the [facility] ([facility]) on q15 min checks (behavioral with suicide precautions) for safety. The patient will participate in group, recreational, and milieu therapies and will be offered additional individual and family sessions as clinically appropriate. -Continue psychiatric medications: * Clozapine 200mg HS (consider further dose titration) * Topiramate 25mg BID * Haldol 2.5mg TID * Ativan 1mg HS (goal to taper as sleep improves and stabilizes) -Adjust: * Paxil from 30mg BID to 30mg daily -Start: * Depakote ER 250mg HS -Clozapine level, fasting lipid panel, HBA1c tomorrow AM -Repeat EKG given his age and now on multiple medications that can impact QTc interval Inventory Assets Strengths: supportive living environment, cooperative Needs: safety and stabilization, medication adjustment, additional coping skills, increased outpatient services Suicide Risk Level Suicide Risk Level: Moderate (q15 min suicide checks) (denies SI but with periods of hallucinations and delusions which can negatively impacting his mood ) Suicide Risk Level Comments: Risk Factors Assessment Male: Yes : Yes Do You Have Access To A Gun?: No Health Problems: Yes Mental Health Diagnoses: Yes Substance Use Disorders: No Previous Attempt: No Family History of Suicide: No Previous Psychiatric Hospitalization: Yes Hopelessness: No Protective Factors Assessment Confucianist Beliefs: Yes Good Rapport with Provider: Yes Interval History Identifying Information REBA KELLY is a 69-year-old man who currently lives [facility], has a history of schizophrenia, recent subdural hematoma, HTN, Type II diabetes, HLD, BPH and was admitted on 09/04/24 14:12 on a 304 involuntary commitment for psychosis and disorganization. Chief Complaint "Fine". Review of Systems Sleep Information Total Hours of Sleep: 6.75 Meal Information Percent Meal Consumed - Breakfast: 100 Percent Meal Consumed - Lunch: 30 Percent Meal Consumed - Dinner: 0 Nutrition Comment: ate HS snack Subjective Subjective Patient was seen & assessed and interval progress reviewed with nursing and social work. Had some buttocks pain last evening, no evidence of redness and having bowel movements. Did shower. Declined dinner initially but ate this later. Today reports his mood is "fine". Blesses the staff intermittently. Tells me he did not sleep well due to "The devil, he calls me a bastard". Reports this is ongoing today. Also reports rectal pain, he feels this is worse when having bowel movements and reports history of hemorrhoids. Physical Exam Psychiatric Orientation: alert, oriented to person and oriented to place Apperance: appropriately dressed and + disheveled Eye Contact: good eye contact Motor Behavior: no abnormal motor movements Speech: normal rate/rhythm/volume of speech (mumbled at times) Affect: + constricted affect Mood: no depressed mood and no anxious mood Thought Process: + looseness of associations and + perseveration Thought Content: + preoccupation and + delusions Suicidal Thoughts: denies suicidal thoughts, denies suicidal plan and denies suicidal intent Homicidal Thoughts: denies homicidal thoughts Hallucinations: + auditory hallucinations; no visual hallucinations Cognition: remote memory grossly intact, attention grossly intact and language grossly intact Insight: + poor insight Judgment: + poor judgement Vital Signs (Past 24 Hours) Last Vital Signs Temp 36 C L 10/05/24 06:31 Pulse 84 10/05/24 06:32 Resp 16 10/05/24 06:31 BP 139/85 10/05/24 06:32 Pulse Ox 96 10/04/24 20:09 O2 Del Method Room Air 10/04/24 20:09 Results & Data ([facility]) Laboratory Results Laboratory Results - last 24 hr 10/05/24 06:15 POC Glucose 85 Current Inpatient Medications Current Inpatient Medications: Current Inpatient Medications Acetaminophen (Acetaminophen 325 Mg Tab) 650 mg PO Q4H PRN PRN Reason: Headache or Minor Fever Stop: 11/02/24 14:11 Last Admin: 10/04/24 21:24 Dose: 650 mg Al Hydrox/Mg Hydrox/Simethicone (Aluminum/Magnesium Susp 30 Ml Udc) 30 ml PO Q4H PRN PRN Reason: GI Upset Stop: 11/02/24 14:11 Atorvastatin Calcium (Atorvastatin 40 Mg Tab) 40 mg PO HS [facility] Stop: 11/02/24 21:59 Last Admin: 10/04/24 21:24 Dose: 40 mg Bismuth Subsalicylate (Bismuth Subsalicylate 262 Mg Chew) 2 tab PO Q30M PRN PRN Reason: Loose Stool/Diarrhea Stop: 11/02/24 14:11 Clozapine (Clozapine 100 Mg Tab) 500 mg PO HS [facility] Stop: 10/23/24 21:59 Last Admin: 10/04/24 21:24 Dose: 500 mg Cyanocobalamin (Cyanocobalamin (B-12) 100 Mcg Tablet) 100 mcg PO QAM [facility] Stop: 11/02/24 08:59 Last Admin: 10/04/24 09:43 Dose: 100 mcg Docusate Sodium (Docusate Sodium 100 Mg Cap) 100 mg PO BID [facility] Stop: 11/02/24 20:59 Last Admin: 10/04/24 21:23 Dose: 100 mg Glycopyrrolate (Glycopyrrolate 1 Mg Tab) 2 mg PO BID [facility] Stop: 10/30/24 20:59 Last Admin: 10/04/24 21:24 Dose: 2 mg Haloperidol (Haloperidol 5 Mg Tab) 5 mg PO BID PRN PRN Reason: psychosis Stop: 11/02/24 09:02 Last Admin: 10/02/24 12:10 Dose: 5 mg Haloperidol (Haloperidol 5 Mg Tab) 5 mg PO BID [facility] Stop: 10/27/24 20:59 Last Admin: 10/04/24 21:29 Dose: 5 mg Haloperidol Lactate (Haloperidol Lactate 5 Mg/Ml 1 Ml Vial) 5 mg IM BID PRN PRN Reason: agitation Stop: 11/02/24 15:34 Hydroxyzine HCl (Hydroxyzine Hcl 25 Mg Tab) 50 mg PO HSZ PRN PRN Reason: Insomnia Stop: 11/02/24 14:11 Last Admin: 09/28/24 01:21 Dose: 50 mg Hydroxyzine HCl (Hydroxyzine Hcl 25 Mg Tab) 25 mg PO Q4H PRN PRN Reason: Anxiety Stop: 11/02/24 14:11 Levothyroxine Sodium (Levothyroxine Sodium 25 Mcg Tablet) 25 mcg PO DAILYBB [facility] Stop: 11/02/24 07:59 Last Admin: 10/04/24 09:45 Dose: 25 mcg Lisinopril (Lisinopril 20 Mg Tab) 20 mg PO DAILY [facility] Stop: 11/02/24 08:59 Last Admin: 10/04/24 09:44 Dose: 20 mg Lorazepam (Lorazepam 2 Mg/1 Ml Vial) 1 mg IM BID PRN PRN Reason: Agitation Stop: 11/02/24 15:34 Lorazepam (Lorazepam 1 Mg Tab) 1 mg PO DAILY PRN PRN Reason: restlessness Stop: 11/02/24 02:10 Last Admin: 09/25/24 07:46 Dose: 1 mg Lorazepam (Lorazepam 1 Mg Tab) 1 mg PO HS PRN PRN Reason: insomnia Stop: 11/02/24 16:13 Magnesium Hydroxide (Magnesium Hydroxide Susp 30 Ml Udc) 30 ml PO DAILY PRN PRN Reason: Constipation Stop: 11/02/24 14:11 Last Admin: 10/02/24 21:05 Dose: 30 ml Melatonin (Melatonin 3 Mg Tab) 3 mg PO HS [facility] Stop: 11/03/24 21:59 Last Admin: 10/04/24 21:23 Dose: 3 mg Meloxicam (Meloxicam 7.5 Mg Tab) 15 mg PO DAILY [facility] Stop: 11/02/24 08:59 Last Admin: 10/04/24 09:44 Dose: 15 mg Metformin HCl (Metformin Hcl 500 Mg Tab) 1,000 mg PO BID17 [facility] Stop: 11/02/24 16:59 Last Admin: 10/04/24 17:37 Dose: 1,000 mg Miscellaneous (Remove Nicoderm Patch) 1 each N/A 2100 [facility] Stop: 11/02/24 20:59 Last Admin: 10/04/24 21:36 Dose: Not Given Multivitamins (Multivitamin Tab) 1 tab PO DAILY [facility] Stop: 11/02/24 08:59 Last Admin: 10/04/24 09:44 Dose: 1 tab Nicotine (Nicotine 21 Mg/24 Hr Tdsy) 1 patch TD QAM [facility] Stop: 11/02/24 09:44 Last Admin: 10/04/24 09:41 Dose: 1 patch Nicotine Polacrilex (Nicotine Polacrilex 2 Mg Gum) 1 piece MT Q2H PRN PRN Reason: smoking cessation Stop: 11/02/24 15:22 Last Admin: 09/29/24 10:35 Dose: 1 piece Paroxetine HCl (Paroxetine Hcl 10 Mg Tab) 30 mg PO DAILY [facility] Stop: 10/25/24 08:59 Last Admin: 10/04/24 09:43 Dose: 30 mg Polyethylene Glycol (Polyethylene (Miralax) 17 Gm Pack) 17 gm PO DAILY [facility] Stop: 11/02/24 08:59 Last Admin: 10/04/24 09:41 Dose: 17 gm Sennosides (Senna 8.6 Mg Tab) 8.6 mg PO Q2D PRN PRN Reason: constipation Stop: 11/02/24 15:30 Sodium Chloride (Sodium Chloride 0.65% Na Soln 45 Ml ([place])) 1 - 2 sprays NA PRN PRN PRN Reason: Nasal Dryness/Congestion Stop: 11/02/24 14:11 Vitamin D (Cholecalciferol 25 Mcg (1000 Units) Tab) 50 mcg PO QAM [facility] Stop: 11/02/24 08:59 Last Admin: 10/04/24 09:44 Dose: 50 mcg Mental Health & Subst Abuse Tx Psychiatrist Name of Psychiatrist: Haley Delilah (on maternity leave) will be seen by Dr. Juarez at [facility] Psychiatrist's Date Of Appointment With Psychiatric Provider: 09/27/24 Time of Appointment with Psychiatrist: 1:45PM Psychiatric Appointment Comment: [address] [place] [address] [place] [id number] Steam Trap Worker Name of Steam Trap Worker: [facility] unit nurse outreach case manager Phone Number for Steam Trap Worker: [phone] Post Discharge Appointments Primary Care Physician Name Of Family Doctor/PCP: Dr. Deonte Martinez - [address] [place] [address] Primary Care Date of Future Appointment with PCP: 09/28/24 Time of Appointment with PCP: 8AM Provider Appointment Comment: Arrive @ 745AM, will be seen by ROSE Espinal. Check in via [place]. Bring meds. Contact Information Discharge Discharge Address: [address] [place] [address] [place] [id number] (1) Psychosis Psychosis type: schizophrenia Schizophrenia type: paranoid schizophrenia Qualified Code(s): F20.0 - Paranoid schizophrenia
[2024-10-05] MEDS ORDERED: PHENYLEPHRINE 0.25% SUPP 1 EA PR PRN (15:03)
--- NOTE | 2024-10-06 08:50 | Psychiatric Progress Note ---
Date of Service October 06, 2024 Impression / Recommendations Impression REBA KELLY is a 69-year-old man who currently lives [facility], has a history of schizophrenia, recent subdural hematoma, HTN, Type II diabetes, HLD, BPH and was admitted on 09/04/24 14:12 on a 303 involuntary commitment for psychosis and disorganization and now on a 304 commitment granted on 09/23/2024. Diagnosis: Schizophrenia vs Schizoaffective Disorder Bipolar Type. s/p TBI with subdural hematoma (resolved) with low suspicion for confusion at this time. Pt had been stable on clozapine for many years but seems to have decompensated in the setting of his recent fall. A: Ongoing psychosis but seems less internally preoccupied today and slightly more behaviorally organized. Tolerating higher dose of clozapine so far, continues to struggle with sleep. No further identified pain symptoms so will use tylenol prn and has scheduled mobic. MNPR due to previous disrobing, psychosis, disorganization and need to be able to use bedside urinal Overall, I spent a total of 26 minutes on this case including meeting with the patient, reviewing the chart, nursing report, orders, and documentation. (1) Psychosis: (2) Schizophrenia: (3) Auditory hallucinations: (4) Sialorrhea: (5) Hypersexuality: (6) Hyperlipidemia: (7) Type 2 diabetes mellitus: (8) Hypertension: (9) Insomnia: Plan 10/06/2024: -Continue current medications and tx plan 10/05/2024: -Increase clozapine to 600mg HS 10/04/2024: -Discontinue Depakote -Schedule melatonin 3mg HS 10/03/2024: -Continue current medications and tx plan. 10/02/2024: -Taper Depakote to 500mg HS 10/01/24 Continue medication at current doses. Continue disposition planning. 09/30/24: Increase Glycopyrrolate to 2mg bid for hypersalivation. Continue other medication at current doses. 09/29/24: Continue medication regimen. Scheduled for evaluation by the Office of Aging on . 09/28/24: Add Melatonin 3mg qhs. Continue other medication at current doses. 09/27/24: Increase Haldol to 5mg bid Continue other medication at current doses. 09/26/24 Continue medication at current doses. Will review indication for Paxil. Continue orthostatic vital sign monitoring bid (130s-160s/80s today) along with close monitoring given fall risk. 09/25/2024: -Start haldol 2.5mg BID 09/24/2024: -Decrease Paxil to 30mg daily 09/23/2024: -Increase clozapine to 500mg HS 09/22/2024: -Increase Depakote ER to 1000mg HS -Discontinue Ativan HS scheduled, adjust to prn in case contributing to falls -Orthostatic vitals BID -PT consult 09/21/2024: Clozapine level tomorrow AM 09/20/2024: Increase clozapine to 450mg HS. 09/19/2024: Increase Paxil to 30mg BID 09/18/2024: Continue medications and treatment plan 09/17/2024 Discontinue Haloperidol 09/16/2024: Clozapine to 400 mg at bedtime and discontinue a.m. dose 09/15/2024: Increase clozapine to 50 mg in the morning. Increase glycopyrrolate to 1.5 mg twice daily. 09/14/2024: Start Clozapine 25 mg in the morning 09/13/24: Continue medications and treatment plan 09/12/2024: Decrease clozapine to 350 mg at bedtime Start glycopyrrolate 1 mg twice daily Decrease haloperidol to 2.5 mg twice daily 09/11/2024: -Increase clozapine to 400mg HS 09/10/2024: -Increase clozapine to 350mg HS 09/09/2024: -Increase haldol back to 2.5mg TID -Increase ipratropium bromide 0.06% under the tongue to 3 sprays TID for sialorrhea -Increase clozapine to 300mg HS 09/08/2024: -Decrease haldol to 2.5mg HS -Discontinue topiramate 09/07/2024: -Decrease haldol to 2.5mg BID -Increase clozapine to 250mg HS 09/06/2024: -Increase Depakote ER to 500mg -Increase ipratropium bromide 0.06% under the tongue to 2 sprays TID -taper Topiramate to 25mg HS to reduce polypharmacy burden 09/05/2024: The patient was [facility] on q15 min checks (behavioral with suicide precautions) for safety. The patient will participate in group, recreational, and milieu therapies and will be offered additional individual and family sessions as clinically appropriate. -Continue psychiatric medications: * Clozapine 200mg HS (consider further dose titration) * Topiramate 25mg BID * Haldol 2.5mg TID * Ativan 1mg HS (goal to taper as sleep improves and stabilizes) -Adjust: * Paxil from 30mg BID to 30mg daily -Start: * Depakote ER 250mg HS -Clozapine level, fasting lipid panel, HBA1c tomorrow AM -Repeat EKG given his age and now on multiple medications that can impact QTc interval Inventory Assets Strengths: supportive living environment, cooperative Needs: safety and stabilization, medication adjustment, additional coping skills, increased outpatient services Suicide Risk Level Suicide Risk Level: Moderate (q15 min suicide checks) (denies SI but with periods of hallucinations and delusions which can negatively impacting his mood ) Suicide Risk Level Comments: Risk Factors Assessment Male: Yes : Yes Do You Have Access To A Gun?: No Health Problems: Yes Mental Health Diagnoses: Yes Substance Use Disorders: No Previous Attempt: No Family History of Suicide: No Previous Psychiatric Hospitalization: Yes Hopelessness: No Protective Factors Assessment Anabaptist Beliefs: Yes Good Rapport with Provider: Yes Interval History Identifying Information REBA KELLY is a 69-year-old man who currently lives [facility], has a history of schizophrenia, recent subdural hematoma, HTN, Type II diabetes, HLD, BPH and was admitted on 09/04/24 14:12 on a 304 involuntary commitment for psychosis and disorganization. Chief Complaint "Good". Review of Systems Sleep Information Total Hours of Sleep: 5.25 Meal Information Percent Meal Consumed - Breakfast: 0 Percent Meal Consumed - Lunch: 100 Percent Meal Consumed - Dinner: 0 Nutrition Comment: pt. allowed to rest Subjective Subjective Patient was seen & assessed and interval progress reviewed with treatment team. More isolative to his room in the evening but played chess earlier in the day (moving the pieces). Less requests at the nurses station. Didn't eat dinner. Evening urinary incontinence but allowed staff to help him with a shower. Today eating his meals and pleasant. Tells me he feels "good". Has been continent of urine. Often gives staff compliments "you're beautiful" but no hypersexual comments. Tried to go to group but left reporting it made him feel "scared". Continues to walk around with a sock frequently in his mouth. Physical Exam Psychiatric Orientation: alert, oriented to person and oriented to place Apperance: appropriately dressed and + disheveled Eye Contact: good eye contact Motor Behavior: no abnormal motor movements Speech: normal rate/rhythm/volume of speech (mumbled at times) Affect: + constricted affect Mood: no depressed mood and no anxious mood Thought Process: + tangential thought process and + perseveration Thought Content: + preoccupation and + delusions Suicidal Thoughts: denies suicidal thoughts, denies suicidal plan and denies suicidal intent Homicidal Thoughts: denies homicidal thoughts Hallucinations: + auditory hallucinations; no visual hallucinations Cognition: remote memory grossly intact, attention grossly intact and language grossly intact Insight: + limited insight Judgment: + limited judgement Vital Signs (Past 24 Hours) Last Vital Signs Temp 36.7 C 10/06/24 06:21 Pulse 74 10/06/24 06:22 Resp 16 10/06/24 06:21 BP 135/84 10/06/24 06:22 Pulse Ox 96 10/04/24 20:09 O2 Del Method Room Air 10/04/24 20:09 Results & Data ([facility]) Laboratory Results Laboratory Results - last 24 hr 10/06/24 06:22 POC Glucose 99 Current Inpatient Medications Current Inpatient Medications: Current Inpatient Medications Acetaminophen (Acetaminophen 325 Mg Tab) 650 mg PO Q4H PRN PRN Reason: Headache or Minor Fever Stop: 11/02/24 14:11 Last Admin: 10/04/24 21:24 Dose: 650 mg Al Hydrox/Mg Hydrox/Simethicone (Aluminum/Magnesium Susp 30 Ml Udc) 30 ml PO Q4H PRN PRN Reason: GI Upset Stop: 11/02/24 14:11 Atorvastatin Calcium (Atorvastatin 40 Mg Tab) 40 mg PO HS [facility] Stop: 11/02/24 21:59 Last Admin: 10/05/24 21:03 Dose: 40 mg Bismuth Subsalicylate (Bismuth Subsalicylate 262 Mg Chew) 2 tab PO Q30M PRN PRN Reason: Loose Stool/Diarrhea Stop: 11/02/24 14:11 Clozapine (Clozapine 100 Mg Tab) 600 mg PO HS [facility] Stop: 11/04/24 21:59 Last Admin: 10/05/24 21:03 Dose: 600 mg Cyanocobalamin (Cyanocobalamin (B-12) 100 Mcg Tablet) 100 mcg PO QAM [facility] Stop: 11/02/24 08:59 Last Admin: 10/05/24 10:15 Dose: 100 mcg Docusate Sodium (Docusate Sodium 100 Mg Cap) 100 mg PO BID [facility] Stop: 11/02/24 20:59 Last Admin: 10/05/24 21:07 Dose: 100 mg Glycopyrrolate (Glycopyrrolate 1 Mg Tab) 2 mg PO BID [facility] Stop: 10/30/24 20:59 Last Admin: 10/05/24 21:04 Dose: 2 mg Haloperidol (Haloperidol 5 Mg Tab) 5 mg PO BID PRN PRN Reason: psychosis Stop: 11/02/24 09:02 Last Admin: 10/02/24 12:10 Dose: 5 mg Haloperidol (Haloperidol 5 Mg Tab) 5 mg PO BID [facility] Stop: 10/27/24 20:59 Last Admin: 10/05/24 21:08 Dose: 5 mg Haloperidol Lactate (Haloperidol Lactate 5 Mg/Ml 1 Ml Vial) 5 mg IM BID PRN PRN Reason: agitation Stop: 11/02/24 15:34 Hydroxyzine HCl (Hydroxyzine Hcl 25 Mg Tab) 50 mg PO HSZ PRN PRN Reason: Insomnia Stop: 11/02/24 14:11 Last Admin: 09/28/24 01:21 Dose: 50 mg Hydroxyzine HCl (Hydroxyzine Hcl 25 Mg Tab) 25 mg PO Q4H PRN PRN Reason: Anxiety Stop: 11/02/24 14:11 Levothyroxine Sodium (Levothyroxine Sodium 25 Mcg Tablet) 25 mcg PO DAILYBB [facility] Stop: 11/02/24 07:59 Last Admin: 10/05/24 10:14 Dose: 25 mcg Lisinopril (Lisinopril 20 Mg Tab) 20 mg PO DAILY [facility] Stop: 11/02/24 08:59 Last Admin: 10/05/24 10:16 Dose: 20 mg Lorazepam (Lorazepam 2 Mg/1 Ml Vial) 1 mg IM BID PRN PRN Reason: Agitation Stop: 11/02/24 15:34 Lorazepam (Lorazepam 1 Mg Tab) 1 mg PO DAILY PRN PRN Reason: restlessness Stop: 11/02/24 02:10 Last Admin: 09/25/24 07:46 Dose: 1 mg Lorazepam (Lorazepam 1 Mg Tab) 1 mg PO HS PRN PRN Reason: insomnia Stop: 11/02/24 16:13 Magnesium Hydroxide (Magnesium Hydroxide Susp 30 Ml Udc) 30 ml PO DAILY PRN PRN Reason: Constipation Stop: 11/02/24 14:11 Last Admin: 10/02/24 21:05 Dose: 30 ml Melatonin (Melatonin 3 Mg Tab) 3 mg PO HS [facility] Stop: 11/03/24 21:59 Last Admin: 10/05/24 21:08 Dose: 3 mg Meloxicam (Meloxicam 7.5 Mg Tab) 15 mg PO DAILY [facility] Stop: 11/02/24 08:59 Last Admin: 10/05/24 10:17 Dose: 15 mg Metformin HCl (Metformin Hcl 500 Mg Tab) 1,000 mg PO BID17 [facility] Stop: 11/02/24 16:59 Last Admin: 10/05/24 17:02 Dose: 1,000 mg Miscellaneous (Remove Nicoderm Patch) 1 each N/A 2100 [facility] Stop: 11/02/24 20:59 Last Admin: 10/05/24 21:13 Dose: Not Given Multivitamins (Multivitamin Tab) 1 tab PO DAILY [facility] Stop: 11/02/24 08:59 Last Admin: 10/05/24 10:18 Dose: 1 tab Nicotine (Nicotine 21 Mg/24 Hr Tdsy) 1 patch TD QAM [facility] Stop: 11/02/24 09:44 Last Admin: 10/05/24 12:00 Dose: 1 patch Nicotine Polacrilex (Nicotine Polacrilex 2 Mg Gum) 1 piece MT Q2H PRN PRN Reason: smoking cessation Stop: 11/02/24 15:22 Last Admin: 09/29/24 10:35 Dose: 1 piece Paroxetine HCl (Paroxetine Hcl 10 Mg Tab) 30 mg PO DAILY [facility] Stop: 10/25/24 08:59 Last Admin: 10/05/24 10:18 Dose: 30 mg Phenylephrine HCl (Phenylephrine 0.25% Supp 1 Ea) 1 supp ID DAILY PRN PRN Reason: Hemorrhoids Stop: 11/04/24 15:02 Polyethylene Glycol (Polyethylene (Miralax) 17 Gm Pack) 17 gm PO DAILY [facility] Stop: 11/02/24 08:59 Last Admin: 10/05/24 10:19 Dose: 17 gm Sennosides (Senna 8.6 Mg Tab) 8.6 mg PO Q2D PRN PRN Reason: constipation Stop: 11/02/24 15:30 Sodium Chloride (Sodium Chloride 0.65% Na Soln 45 Ml (Bryan)) 1 - 2 sprays NA PRN PRN PRN Reason: Nasal Dryness/Congestion Stop: 11/02/24 14:11 Vitamin D (Cholecalciferol 25 Mcg (1000 Units) Tab) 50 mcg PO QAM [facility] Stop: 11/02/24 08:59 Last Admin: 10/05/24 10:14 Dose: 50 mcg Mental Health & Subst Abuse Tx Psychiatrist Name of Psychiatrist: Haley Mazariegos (on maternity leave) will be seen by Dr. Juarez at [facility] Psychiatrist's Date Of Appointment With Psychiatric Provider: 09/27/24 Time of Appointment with Psychiatrist: 1:45PM Psychiatric Appointment Comment: [address] [place] [address] [place], [place] [address] Antenna Machine Operator Name of Antenna Machine Operator: Evelyn [facility] dependency case manager Phone Number for Antenna Machine Operator: [phone] Post Discharge Appointments Primary Care Physician Name Of Family Doctor/PCP: Dr. Deonte Martinez - [address] [place] [address] Primary Care Date of Future Appointment with PCP: 09/28/24 Time of Appointment with PCP: 8AM Provider Appointment Comment: Arrive @ 745AM, will be seen by [place] Espinal. Check in via [employer]. [facility] meds. Contact Information Discharge Discharge Address: [address] [place] [address] [place] [id number] (1) Psychosis Psychosis type: schizophrenia Schizophrenia type: paranoid schizophrenia Qualified Code(s): F20.0 - Paranoid schizophrenia
--- NOTE | 2024-10-07 08:54 | Psychiatric Progress Note ---
Date of Service October 07, 2024 Impression / Recommendations Impression REBA KELLY is a 69-year-old man who currently lives [facility], has a history of schizophrenia, recent subdural hematoma, HTN, Type II diabetes, HLD, BPH and was admitted on 09/04/24 14:12 on a 303 involuntary commitment for psychosis and disorganization and now on a 304 commitment granted on 09/23/2024. Diagnosis: Schizophrenia vs Schizoaffective Disorder Bipolar Type. s/p TBI with subdural hematoma (resolved) with low suspicion for confusion at this time. Pt had been stable on clozapine for many years but seems to have decompensated in the setting of his recent fall. A: Ongoing psychosis but less internally preoccupied today and slept well overnight and appropriate in conversation about events of the morning. Some pentecostalism preoccupation but he doesn't voice any overt delusions. MNPR due to previous disrobing, psychosis, disorganization and need to be able to use bedside urinal Overall, I spent a total of 20 minutes on this case including meeting with the patient, reviewing the chart, nursing report, orders, and documentation. (1) Psychosis: (2) Schizophrenia: (3) Auditory hallucinations: (4) Sialorrhea: (5) Hypersexuality: (6) Hyperlipidemia: (7) Type 2 diabetes mellitus: (8) Hypertension: (9) Insomnia: Plan 10/07/2024: -Continue current medications and tx plan 10/06/2024: -Continue current medications and tx plan 10/05/2024: -Increase clozapine to 600mg HS 10/04/2024: -Discontinue Depakote -Schedule melatonin 3mg HS 10/03/2024: -Continue current medications and tx plan. 10/02/2024: -Taper Depakote to 500mg HS 10/01/24 Continue medication at current doses. Continue disposition planning. 09/30/24: Increase Glycopyrrolate to 2mg bid for hypersalivation. Continue other medication at current doses. 09/29/24: Continue medication regimen. Scheduled for evaluation by the Office of Aging on . 09/28/24: Add Melatonin 3mg qhs. Continue other medication at current doses. 09/27/24: Increase Haldol to 5mg bid Continue other medication at current doses. 09/26/24 Continue medication at current doses. Will review indication for Paxil. Continue orthostatic vital sign monitoring bid (130s-160s/80s today) along with close monitoring given fall risk. 09/25/2024: -Start haldol 2.5mg BID 09/24/2024: -Decrease Paxil to 30mg daily 09/23/2024: -Increase clozapine to 500mg HS 09/22/2024: -Increase Depakote ER to 1000mg HS -Discontinue Ativan HS scheduled, adjust to prn in case contributing to falls -Orthostatic vitals BID -PT consult 09/21/2024: Clozapine level tomorrow AM 09/20/2024: Increase clozapine to 450mg HS. 09/19/2024: Increase Paxil to 30mg BID 09/18/2024: Continue medications and treatment plan 09/17/2024 Discontinue Haloperidol 09/16/2024: Clozapine to 400 mg at bedtime and discontinue a.m. dose 09/15/2024: Increase clozapine to 50 mg in the morning. Increase glycopyrrolate to 1.5 mg twice daily. 09/14/2024: Start Clozapine 25 mg in the morning 09/13/24: Continue medications and treatment plan 09/12/2024: Decrease clozapine to 350 mg at bedtime Start glycopyrrolate 1 mg twice daily Decrease haloperidol to 2.5 mg twice daily 09/11/2024: -Increase clozapine to 400mg HS 09/10/2024: -Increase clozapine to 350mg HS 09/09/2024: -Increase haldol back to 2.5mg TID -Increase ipratropium bromide 0.06% under the tongue to 3 sprays TID for sialorrhea -Increase clozapine to 300mg HS 09/08/2024: -Decrease haldol to 2.5mg HS -Discontinue topiramate 09/07/2024: -Decrease haldol to 2.5mg BID -Increase clozapine to 250mg HS 09/06/2024: -Increase Depakote ER to 500mg -Increase ipratropium bromide 0.06% under the tongue to 2 sprays TID -taper Topiramate to 25mg HS to reduce polypharmacy burden 09/05/2024: The patient was admitted to [facility] on q15 min checks (behavioral with suicide precautions) for safety. The patient will participate in group, recreational, and milieu therapies and will be offered additional individual and family sessions as clinically appropriate. -Continue psychiatric medications: * Clozapine 200mg HS (consider further dose titration) * Topiramate 25mg BID * Haldol 2.5mg TID * Ativan 1mg HS (goal to taper as sleep improves and stabilizes) -Adjust: * Paxil from 30mg BID to 30mg daily -Start: * Depakote ER 250mg HS -Clozapine level, fasting lipid panel, HBA1c tomorrow AM -Repeat EKG given his age and now on multiple medications that can impact QTc interval Inventory Assets Strengths: supportive living environment, cooperative Needs: safety and stabilization, medication adjustment, additional coping skills, increased outpatient services Suicide Risk Level Suicide Risk Level: Moderate (q15 min suicide checks) (denies SI but with periods of hallucinations and delusions which can negatively impacting his mood ) Suicide Risk Level Comments: Risk Factors Assessment Male: Yes : Yes Do You Have Access To A Gun?: No Health Problems: Yes Mental Health Diagnoses: Yes Substance Use Disorders: No Previous Attempt: No Family History of Suicide: No Previous Psychiatric Hospitalization: Yes Hopelessness: No Protective Factors Assessment Yazdanism Beliefs: Yes Good Rapport with Provider: Yes Interval History Identifying Information REBA KELLY is a 69-year-old man who currently lives [facility], has a history of schizophrenia, recent subdural hematoma, HTN, Type II diabetes, HLD, BPH and was admitted on 09/04/24 14:12 on a 304 involuntary commitment for psychosis and disorganization. Chief Complaint "I bless you". Review of Systems Sleep Information Total Hours of Sleep: 8.25 Meal Information Percent Meal Consumed - Breakfast: 100 Percent Meal Consumed - Lunch: 100 Percent Meal Consumed - Dinner: 75 Nutrition Comment: Subjective Subjective Patient was seen & assessed and interval progress reviewed with nursing and social work. Slept more overnight. Pleasant and reports "good" mood. Eating lunch and pleased he was able to go outside with staff. Tells me it was concepción which he enjoyed. Physical Exam Psychiatric Orientation: alert, oriented to person, oriented to place and cooperative Apperance: appropriately dressed and + disheveled Eye Contact: good eye contact Motor Behavior: no abnormal motor movements Speech: normal rate/rhythm/volume of speech (mumbled at times) Affect: + constricted affect Mood: no depressed mood and no anxious mood Thought Process: + circumstantial thought process and + perseveration Thought Content: + preoccupation and + delusions Suicidal Thoughts: denies suicidal thoughts, denies suicidal plan and denies suicidal intent Homicidal Thoughts: denies homicidal thoughts Hallucinations: + auditory hallucinations; no visual hallucinations Cognition: remote memory grossly intact, attention grossly intact and language grossly intact Insight: + limited insight Judgment: + limited judgement Vital Signs (Past 24 Hours) Last Vital Signs Temp 36.8 C 10/07/24 06:28 Pulse 67 10/07/24 06:28 Resp 16 10/07/24 06:28 BP 126/82 10/07/24 06:29 Pulse Ox 96 10/07/24 06:28 O2 Del Method Room Air 10/07/24 06:28 Results & Data ([facility]) Laboratory Results Laboratory Results - last 24 hr 10/07/24 06:09 POC Glucose 94 Current Inpatient Medications Current Inpatient Medications: Current Inpatient Medications Acetaminophen (Acetaminophen 325 Mg Tab) 650 mg PO Q4H PRN PRN Reason: Headache or Minor Fever Stop: 11/02/24 14:11 Last Admin: 10/04/24 21:24 Dose: 650 mg Al Hydrox/Mg Hydrox/Simethicone (Aluminum/Magnesium Susp 30 Ml Udc) 30 ml PO Q4H PRN PRN Reason: GI Upset Stop: 11/02/24 14:11 Atorvastatin Calcium (Atorvastatin 40 Mg Tab) 40 mg PO HS [facility]ICE Stop: 11/02/24 21:59 Last Admin: 10/06/24 20:26 Dose: 40 mg Bismuth Subsalicylate (Bismuth Subsalicylate 262 Mg Chew) 2 tab PO Q30M PRN PRN Reason: Loose Stool/Diarrhea Stop: 11/02/24 14:11 Clozapine (Clozapine 100 Mg Tab) 600 mg PO HS [facility]RICE Stop: 11/04/24 21:59 Last Admin: 10/06/24 20:25 Dose: 600 mg Cyanocobalamin (Cyanocobalamin (B-12) 100 Mcg Tablet) 100 mcg PO QAM [facility] Stop: 11/02/24 08:59 Last Admin: 10/06/24 10:43 Dose: 100 mcg Docusate Sodium (Docusate Sodium 100 Mg Cap) 100 mg PO BID [facility]RICE Stop: 11/02/24 20:59 Last Admin: 10/06/24 20:30 Dose: 100 mg Glycopyrrolate (Glycopyrrolate 1 Mg Tab) 2 mg PO BID [facility]RICE Stop: 10/30/24 20:59 Last Admin: 10/06/24 20:24 Dose: 2 mg Haloperidol (Haloperidol 5 Mg Tab) 5 mg PO BID PRN PRN Reason: psychosis Stop: 11/02/24 09:02 Last Admin: 10/02/24 12:10 Dose: 5 mg Haloperidol (Haloperidol 5 Mg Tab) 5 mg PO BID [facility]RICE Stop: 10/27/24 20:59 Last Admin: 10/06/24 20:30 Dose: 5 mg Haloperidol Lactate (Haloperidol Lactate 5 Mg/Ml 1 Ml Vial) 5 mg IM BID PRN PRN Reason: agitation Stop: 11/02/24 15:34 Hydroxyzine HCl (Hydroxyzine Hcl 25 Mg Tab) 50 mg PO HSZ PRN PRN Reason: Insomnia Stop: 11/02/24 14:11 Last Admin: 09/28/24 01:21 Dose: 50 mg Hydroxyzine HCl (Hydroxyzine Hcl 25 Mg Tab) 25 mg PO Q4H PRN PRN Reason: Anxiety Stop: 11/02/24 14:11 Levothyroxine Sodium (Levothyroxine Sodium 25 Mcg Tablet) 25 mcg PO DAILYBB [facility] Stop: 11/02/24 07:59 Last Admin: 10/06/24 10:44 Dose: 25 mcg Lisinopril (Lisinopril 20 Mg Tab) 20 mg PO DAILY [facility] Stop: 11/02/24 08:59 Last Admin: 10/06/24 10:44 Dose: 20 mg Lorazepam (Lorazepam 2 Mg/1 Ml Vial) 1 mg IM BID PRN PRN Reason: Agitation Stop: 11/02/24 15:34 Lorazepam (Lorazepam 1 Mg Tab) 1 mg PO DAILY PRN PRN Reason: restlessness Stop: 11/02/24 02:10 Last Admin: 09/25/24 07:46 Dose: 1 mg Lorazepam (Lorazepam 1 Mg Tab) 1 mg PO HS PRN PRN Reason: insomnia Stop: 11/02/24 16:13 Magnesium Hydroxide (Magnesium Hydroxide Susp 30 Ml Udc) 30 ml PO DAILY PRN PRN Reason: Constipation Stop: 11/02/24 14:11 Last Admin: 10/02/24 21:05 Dose: 30 ml Melatonin (Melatonin 3 Mg Tab) 3 mg PO HS [facility] Stop: 11/03/24 21:59 Last Admin: 10/06/24 20:25 Dose: 3 mg Meloxicam (Meloxicam 7.5 Mg Tab) 15 mg PO DAILY [facility] Stop: 11/02/24 08:59 Last Admin: 10/06/24 10:42 Dose: 15 mg Metformin HCl (Metformin Hcl 500 Mg Tab) 1,000 mg PO BID17 [facility] Stop: 11/02/24 16:59 Last Admin: 10/06/24 17:19 Dose: 1,000 mg Miscellaneous (Remove Nicoderm Patch) 1 each N/A 2100 [facility] Stop: 11/02/24 20:59 Last Admin: 10/06/24 20:26 Dose: 1 each Multivitamins (Multivitamin Tab) 1 tab PO DAILY [facility] Stop: 11/02/24 08:59 Last Admin: 10/06/24 10:42 Dose: 1 tab Nicotine (Nicotine 21 Mg/24 Hr Tdsy) 1 patch TD QAM [facility] Stop: 11/02/24 09:44 Last Admin: 10/06/24 10:45 Dose: 1 patch Nicotine Polacrilex (Nicotine Polacrilex 2 Mg Gum) 1 piece MT Q2H PRN PRN Reason: smoking cessation Stop: 11/02/24 15:22 Last Admin: 09/29/24 10:35 Dose: 1 piece Paroxetine HCl (Paroxetine Hcl 10 Mg Tab) 30 mg PO DAILY [facility] Stop: 10/25/24 08:59 Last Admin: 10/06/24 10:44 Dose: 30 mg Phenylephrine HCl (Phenylephrine 0.25% Supp 1 Ea) 1 supp AK DAILY PRN PRN Reason: Hemorrhoids Stop: 11/04/24 15:02 Polyethylene Glycol (Polyethylene (Miralax) 17 Gm Pack) 17 gm PO DAILY [facility] Stop: 11/02/24 08:59 Last Admin: 10/06/24 10:41 Dose: 17 gm Sennosides (Senna 8.6 Mg Tab) 8.6 mg PO Q2D PRN PRN Reason: constipation Stop: 11/02/24 15:30 Sodium Chloride (Sodium Chloride 0.65% Na Soln 45 Ml ([place])) 1 - 2 sprays NA PRN PRN PRN Reason: Nasal Dryness/Congestion Stop: 11/02/24 14:11 Vitamin D (Cholecalciferol 25 Mcg (1000 Units) Tab) 50 mcg PO QAM [facility] Stop: 11/02/24 08:59 Last Admin: 10/06/24 10:42 Dose: 50 mcg Mental Health & Subst Abuse Tx Psychiatrist Name of Psychiatrist: Haley Mazariegos (on maternity leave) will be seen by Dr. Juarez at [facility] Psychiatrist's Date Of Appointment With Psychiatric Provider: 09/27/24 Time of Appointment with Psychiatrist: 1:45PM Psychiatric Appointment Comment: [address] [place] [address] ROSE Palma23 Energy Conservation Director Name of Energy Conservation Director: [facility] unit case picker Phone Number for Energy Conservation Director: [phone] Post Discharge Appointments Primary Care Physician Name Of Family Doctor/PCP: Dr. Deonte Martinez - [address] [place] [address] Primary Care Date of Future Appointment with PCP: 09/28/24 Time of Appointment with PCP: 8AM Provider Appointment Comment: Arrive @ 745AM, will be seen by ROSE Espinal. Check in via Oree. Bring meds. Contact Information Discharge Discharge Address: [address] [place] [address] [place]a ROSE [id number] (1) Psychosis Psychosis type: schizophrenia Schizophrenia type: paranoid schizophrenia Qualified Code(s): F20.0 - Paranoid schizophrenia
--- NOTE | 2024-10-08 14:46 | Psychiatric Progress Note ---
Date of Service October 08, 2024 Impression / Recommendations Impression REBA KELLY is a 69-year-old man who currently lives [facility], has a history of schizophrenia, recent subdural hematoma, HTN, Type II diabetes, HLD, BPH and was admitted on 09/04/24 14:12 on a 303 involuntary commitment for psychosis and disorganization and now on a 304 commitment granted on 09/23/2024. Diagnosis: Schizophrenia vs Schizoaffective Disorder Bipolar Type. s/p TBI with subdural hematoma (resolved) with low suspicion for confusion at this time. Pt had been stable on clozapine for many years but seems to have decompensated in the setting of his recent fall. A: Ongoing psychosis but overall less internally preoccupied. Maintains fair sleep. Episodes of confusion and disorientation. Stable behaviors. MNPR due to previous disrobing, psychosis, disorganization and need to be able to use bedside urinal Overall, I spent a total of 35 minutes on this case including meeting with the patient, reviewing the chart, nursing report, orders, and documentation. (1) Psychosis: (2) Schizophrenia: (3) Auditory hallucinations: (4) Sialorrhea: (5) Hypersexuality: (6) Hyperlipidemia: (7) Type 2 diabetes mellitus: (8) Hypertension: (9) Insomnia: Plan 10/08/2024: Continue medications and treatment plan 10/07/2024: -Continue current medications and tx plan 10/06/2024: -Continue current medications and tx plan 10/05/2024: -Increase clozapine to 600mg HS 10/04/2024: -Discontinue Depakote -Schedule melatonin 3mg HS 10/03/2024: -Continue current medications and tx plan. 10/02/2024: -Taper Depakote to 500mg HS 10/01/24 Continue medication at current doses. Continue disposition planning. 09/30/24: Increase Glycopyrrolate to 2mg bid for hypersalivation. Continue other medication at current doses. 09/29/24: Continue medication regimen. Scheduled for evaluation by the Office of Aging on . 09/28/24: Add Melatonin 3mg qhs. Continue other medication at current doses. 09/27/24: Increase Haldol to 5mg bid Continue other medication at current doses. 09/26/24 Continue medication at current doses. Will review indication for Paxil. Continue orthostatic vital sign monitoring bid (130s-160s/80s today) along with close monitoring given fall risk. 09/25/2024: -Start haldol 2.5mg BID 09/24/2024: -Decrease Paxil to 30mg daily 09/23/2024: -Increase clozapine to 500mg HS 09/22/2024: -Increase Depakote ER to 1000mg HS -Discontinue Ativan HS scheduled, adjust to prn in case contributing to falls -Orthostatic vitals BID -PT consult 09/21/2024: Clozapine level tomorrow AM 09/20/2024: Increase clozapine to 450mg HS. 09/19/2024: Increase Paxil to 30mg BID 09/18/2024: Continue medications and treatment plan 09/17/2024 Discontinue Haloperidol 09/16/2024: Clozapine to 400 mg at bedtime and discontinue a.m. dose 09/15/2024: Increase clozapine to 50 mg in the morning. Increase glycopyrrolate to 1.5 mg twice daily. 09/14/2024: Start Clozapine 25 mg in the morning 09/13/24: Continue medications and treatment plan 09/12/2024: Decrease clozapine to 350 mg at bedtime Start glycopyrrolate 1 mg twice daily Decrease haloperidol to 2.5 mg twice daily 09/11/2024: -Increase clozapine to 400mg HS 09/10/2024: -Increase clozapine to 350mg HS 09/09/2024: -Increase haldol back to 2.5mg TID -Increase ipratropium bromide 0.06% under the tongue to 3 sprays TID for sialorrhea -Increase clozapine to 300mg HS 09/08/2024: -Decrease haldol to 2.5mg HS -Discontinue topiramate 09/07/2024: -Decrease haldol to 2.5mg BID -Increase clozapine to 250mg HS 09/06/2024: -Increase Depakote ER to 500mg -Increase ipratropium bromide 0.06% under the tongue to 2 sprays TID -taper Topiramate to 25mg HS to reduce polypharmacy burden 09/05/2024: The patient was admitted to the [facility] ([facility] unit) on q15 min checks (behavioral with suicide precautions) for safety. The patient will participate in group, recreational, and milieu therapies and will be offered additional individual and family sessions as clinically appropriate. -Continue psychiatric medications: * Clozapine 200mg HS (consider further dose titration) * Topiramate 25mg BID * Haldol 2.5mg TID * Ativan 1mg HS (goal to taper as sleep improves and stabilizes) -Adjust: * Paxil from 30mg BID to 30mg daily -Start: * Depakote ER 250mg HS -Clozapine level, fasting lipid panel, HBA1c tomorrow AM -Repeat EKG given his age and now on multiple medications that can impact QTc interval Inventory Assets Strengths: supportive living environment, cooperative Needs: safety and stabilization, medication adjustment, additional coping skills, inc reased outpatient services Suicide Risk Level Suicide Risk Level: Moderate (q15 min suicide checks) (denies SI but with periods of hallucinations and delusions which can negatively impacting his mood ) Suicide Risk Level Comments: Risk Factors Assessment Male: Yes : Yes Do You Have Access To A Gun?: No Health Problems: Yes Mental Health Diagnoses: Yes Substance Use Disorders: No Previous Attempt: No Family History of Suicide: No Previous Psychiatric Hospitalization: Yes Hopelessness: No Protective Factors Assessment Yarsanism Beliefs: Yes Good Rapport with Provider: Yes Interval History Identifying Information REBA KELLY is a 69-year-old man who currently lives [facility], has a history of schizophrenia, recent subdural hematoma, HTN, Type II diabetes, HLD, BPH and was admitted on 09/04/24 14:12 on a 304 involuntary commitment for psychosis and disorganization. Chief Complaint AMS, psychosis Review of Systems Sleep Information Total Hours of Sleep: 5.5 Sleep Comments: Incontinent of urine Meal Information Percent Meal Consumed - Breakfast: 75 Percent Meal Consumed - Lunch: 90 Percent Meal Consumed - Dinner: 50 Nutrition Comment: Jose D needs assistance opening items. Subjective Subjective Patient was seen & assessed and interval progress reviewed with treatment team nursing and social work On interview the patient reports that his "3058" for the year, "[facility]" as a location, and unable to give me the month of the year. Says that his voices "hallucinate". Would not explain further. He is quite dysarthric with low volume and difficult to comprehend. Unable to reasonably engage in conversation. Physical Exam Mental Examination Appearance: Disheveled Eye Contact: Maintains Eye Contact Motor Behavior: Slowed and Weakness Speech: Soft and Disorganized Mood: Calm Affect: Blunted Thought Process: Disorganized, Loose Associations and Slowed Thinking Thought Content: Disorganized and Preoccupation Hallucinations: Auditory Insight: Poor Judgement: Poor Vital Signs (Past 24 Hours) Last Vital Signs Temp 36.6 C 10/08/24 06:27 Pulse 67 10/07/24 06:28 Resp 16 10/08/24 06:27 BP 126/82 10/07/24 06:29 Pulse Ox 96 10/08/24 06:27 O2 Del Method Room Air 10/08/24 06:27 Results & Data ([facility]) Laboratory Results Laboratory Results - last 24 hr 10/08/24 08:10 POC Glucose 100 H Current Inpatient Medications Current Inpatient Medications: Current Inpatient Medications Acetaminophen (Acetaminophen 325 Mg Tab) 650 mg PO Q4H PRN PRN Reason: Headache or Minor Fever Stop: 11/02/24 14:11 Last Admin: 10/04/24 21:24 Dose: 650 mg Al Hydrox/Mg Hydrox/Simethicone (Aluminum/Magnesium Susp 30 Ml Udc) 30 ml PO Q4H PRN PRN Reason: GI Upset Stop: 11/02/24 14:11 Atorvastatin Calcium (Atorvastatin 40 Mg Tab) 40 mg PO HS [facility]ATRICE Stop: 11/02/24 21:59 Last Admin: 10/07/24 20:43 Dose: 40 mg Bismuth Subsalicylate (Bismuth Subsalicylate 262 Mg Chew) 2 tab PO Q30M PRN PRN Reason: Loose Stool/Diarrhea Stop: 11/02/24 14:11 Clozapine (Clozapine 100 Mg Tab) 600 mg PO HS BEATRICE Stop: 11/04/24 21:59 Last Admin: 10/07/24 20:43 Dose: 600 mg Cyanocobalamin (Cyanocobalamin (B-12) 100 Mcg Tablet) 100 mcg PO QAM [facility] Stop: 11/02/24 08:59 Last Admin: 10/08/24 08:28 Dose: 100 mcg Docusate Sodium (Docusate Sodium 100 Mg Cap) 100 mg PO BID [facility]RICE Stop: 11/02/24 20:59 Last Admin: 10/08/24 08:29 Dose: 100 mg Glycopyrrolate (Glycopyrrolate 1 Mg Tab) 2 mg PO BID [facility]ICE Stop: 10/30/24 20:59 Last Admin: 10/08/24 08:29 Dose: 2 mg Haloperidol (Haloperidol 5 Mg Tab) 5 mg PO BID PRN PRN Reason: psychosis Stop: 11/02/24 09:02 Last Admin: 10/02/24 12:10 Dose: 5 mg Haloperidol (Haloperidol 5 Mg Tab) 5 mg PO BID [facility]ATRICE Stop: 10/27/24 20:59 Last Admin: 10/08/24 08:30 Dose: 5 mg Haloperidol Lactate (Haloperidol Lactate 5 Mg/Ml 1 Ml Vial) 5 mg IM BID PRN PRN Reason: agitation Stop: 11/02/24 15:34 Hydroxyzine HCl (Hydroxyzine Hcl 25 Mg Tab) 50 mg PO HSZ PRN PRN Reason: Insomnia Stop: 11/02/24 14:11 Last Admin: 09/28/24 01:21 Dose: 50 mg Hydroxyzine HCl (Hydroxyzine Hcl 25 Mg Tab) 25 mg PO Q4H PRN PRN Reason: Anxiety Stop: 11/02/24 14:11 Levothyroxine Sodium (Levothyroxine Sodium 25 Mcg Tablet) 25 mcg PO DAILYBB [facility]ICE Stop: 11/02/24 07:59 Last Admin: 10/08/24 08:27 Dose: 25 mcg Lisinopril (Lisinopril 20 Mg Tab) 20 mg PO DAILY [facility] Stop: 11/02/24 08:59 Last Admin: 10/08/24 08:30 Dose: 20 mg Lorazepam (Lorazepam 2 Mg/1 Ml Vial) 1 mg IM BID PRN PRN Reason: Agitation Stop: 11/02/24 15:34 Lorazepam (Lorazepam 1 Mg Tab) 1 mg PO DAILY PRN PRN Reason: restlessness Stop: 11/02/24 02:10 Last Admin: 09/25/24 07:46 Dose: 1 mg Lorazepam (Lorazepam 1 Mg Tab) 1 mg PO HS PRN PRN Reason: insomnia Stop: 11/02/24 16:13 Magnesium Hydroxide (Magnesium Hydroxide Susp 30 Ml Udc) 30 ml PO DAILY PRN PRN Reason: Constipation Stop: 11/02/24 14:11 Last Admin: 10/02/24 21:05 Dose: 30 ml Melatonin (Melatonin 3 Mg Tab) 3 mg PO HS [facility]ICE Stop: 11/03/24 21:59 Last Admin: 10/07/24 20:41 Dose: 3 mg Meloxicam (Meloxicam 7.5 Mg Tab) 15 mg PO DAILY [facility] Stop: 11/02/24 08:59 Last Admin: 10/08/24 08:30 Dose: 15 mg Metformin HCl (Metformin Hcl 500 Mg Tab) 1,000 mg PO BID17 [facility]ATRICE Stop: 11/02/24 16:59 Last Admin: 10/08/24 08:31 Dose: 1,000 mg Miscellaneous (Remove Nicoderm Patch) 1 each N/A 2100 [facility] Stop: 11/02/24 20:59 Last Admin: 10/07/24 09:28 Dose: 1 each Multivitamins (Multivitamin Tab) 1 tab PO DAILY [facility] Stop: 11/02/24 08:59 Last Admin: 10/08/24 08:31 Dose: 1 tab Nicotine (Nicotine 21 Mg/24 Hr Tdsy) 1 patch TD QAM [facility] Stop: 11/02/24 09:44 Last Admin: 10/08/24 13:08 Dose: 1 patch Nicotine Polacrilex (Nicotine Polacrilex 2 Mg Gum) 1 piece MT Q2H PRN PRN Reason: smoking cessation Stop: 11/02/24 15:22 Last Admin: 09/29/24 10:35 Dose: 1 piece Paroxetine HCl (Paroxetine Hcl 10 Mg Tab) 30 mg PO DAILY [facility] Stop: 10/25/24 08:59 Last Admin: 10/08/24 08:31 Dose: 30 mg Phenylephrine HCl (Phenylephrine 0.25% Supp 1 Ea) 1 supp HI DAILY PRN PRN Reason: Hemorrhoids Stop: 11/04/24 15:02 Polyethylene Glycol (Polyethylene (Miralax) 17 Gm Pack) 17 gm PO DAILY [facility] Stop: 11/02/24 08:59 Last Admin: 10/08/24 08:32 Dose: 17 gm Sennosides (Senna 8.6 Mg Tab) 8.6 mg PO Q2D PRN PRN Reason: constipation Stop: 11/02/24 15:30 Sodium Chloride (Sodium Chloride 0.65% Na Soln 45 Ml ([place])) 1 - 2 sprays NA PRN PRN PRN Reason: Nasal Dryness/Congestion Stop: 11/02/24 14:11 Vitamin D (Cholecalciferol 25 Mcg (1000 Units) Tab) 50 mcg PO QAM [facility] Stop: 11/02/24 08:59 Last Admin: 10/08/24 08:28 Dose: 50 mcg Mental Health & Subst Abuse Tx Psychiatrist Name of Psychiatrist: Haleynichole Mazariegos (on maternity leave) will be seen by Dr. Juarez at [facility] Psychiatrist's Date Of Appointment With Psychiatric Provider: 09/27/24 Time of Appointment with Psychiatrist: 1:45PM Psychiatric Appointment Comment: [address] [place] [address] ROSE Palma23 Program Services Planner Name of Program Services Planner: [facility] case filler Phone Number for Program Services Planner: [phone] Post Discharge Appointments Primary Care Physician Name Of Family Doctor/PCP: Dr. Deonte Martinez - [address] [place] [address] Primary Care Date of Future Appointment with PCP: 09/28/24 Time of Appointment with PCP: 8AM Provider Appointment Comment: Arrive @ 745AM, will be seen by ROSE Espinal. Check in via [employer]. [facility] meds. Contact Information Discharge Discharge Address: [address] [place] [address] [place]a ROSE [id number] (1) Psychosis Psychosis type: schizophrenia Schizophrenia type: paranoid schizophrenia Qualified Code(s): F20.0 - Paranoid schizophrenia
[2024-10-09 09:13] LABS: Hematocrit (blood only) 35.7 % (42.0-52.0); Hemoglobin 11.8 g/dl (14.0-18.0); Immature Granulocytes # (auto) 0.03 K/uL (0.01-0.20); Immature Granulocytes % (auto) 0.3 %; Mean Corpuscular Hemoglobin 29.6 pg (25.0-34.0); Mean Corpuscular Volume 89.5 fL (80.0-100.0); Platelet Count 180 K/uL (130-400); RDW Standard Deviation 41.1 fL (36.4-46.3); Red Blood Count 3.99 M/uL (4.70-6.10); White Blood Count 10.96 K/ul (4.8-10.8)
--- NOTE | 2024-10-09 12:27 | Psychiatric Progress Note ---
Date of Service October 09, 2024 Impression / Recommendations Impression REBA KELLY is a 69-year-old man who currently lives [facility], has a history of schizophrenia, recent subdural hematoma, HTN, Type II diabetes, HLD, BPH and was admitted on 09/04/24 14:12 on a 303 involuntary commitment for psychosis and disorganization and now on a 304 commitment granted on 09/23/2024. Diagnosis: Schizophrenia vs Schizoaffective Disorder Bipolar Type. s/p TBI with subdural hematoma (resolved) with low suspicion for confusion at this time. Pt had been stable on clozapine for many years but seems to have decompensated in the setting of his recent fall. A: Concern for excess anticholinergic burden from clozapine with increased confusion, disorientation, and dysarthria. Pt having difficulty engaging in the clinical conversation. Labs reviewed and last clozapine level while dosing was at 450mg HS was 454 with is on the lower end of therapeutic range for tx refractory patients. Norclozapine was 134 with a clozapine/norclozapine ratio of 3.4 which signals metabolism inhibition or higher risk of toxicity. Pt is on propranolol which can cause CY inhibition impacting conversion of clozapine to norclozapine. Plan to reduce dose and assess for improvement in cognition and speech. Continued sialorrhea. Repeat clozapine level. MNPR due to previous disrobing, psychosis, disorganization and need to be able to use bedside urinal Overall, I spent a total of 45 minutes on this case including meeting with the patient, reviewing the chart, nursing report, orders, evidence base review and documentation. (1) Psychosis: (2) Schizophrenia: (3) Auditory hallucinations: (4) Sialorrhea: (5) Hypersexuality: (6) Hyperlipidemia: (7) Type 2 diabetes mellitus: (8) Hypertension: (9) Insomnia: Plan 10/09/2024: Decrease clozapine to 500mg HS 10/08/2024: Continue medications and treatment plan 10/07/2024: -Continue current medications and tx plan 10/06/2024: -Continue current medications and tx plan 10/05/2024: -Increase clozapine to 600mg HS 10/04/2024: -Discontinue Depakote -Schedule melatonin 3mg HS 10/03/2024: -Continue current medications and tx plan. 10/02/2024: -Taper Depakote to 500mg HS 10/01/24 Continue medication at current doses. Continue disposition planning. 09/30/24: Increase Glycopyrrolate to 2mg bid for hypersalivation. Continue other medication at current doses. 09/29/24: Continue medication regimen. Scheduled for evaluation by the Office of Aging on . 09/28/24: Add Melatonin 3mg qhs. Continue other medication at current doses. 09/27/24: Increase Haldol to 5mg bid Continue other medication at current doses. 09/26/24 Continue medication at current doses. Will review indication for Paxil. Continue orthostatic vital sign monitoring bid (130s-160s/80s today) along with close monitoring given fall risk. 09/25/2024: -Start haldol 2.5mg BID 09/24/2024: -Decrease Paxil to 30mg daily 09/23/2024: -Increase clozapine to 500mg HS 09/22/2024: -Increase Depakote ER to 1000mg HS -Discontinue Ativan HS scheduled, adjust to prn in case contributing to falls -Orthostatic vitals BID -PT consult 09/21/2024: Clozapine level tomorrow AM 09/20/2024: Increase clozapine to 450mg HS. 09/19/2024: Increase Paxil to 30mg BID 09/18/2024: Continue medications and treatment plan 09/17/2024 Discontinue Haloperidol 09/16/2024: Clozapine to 400 mg at bedtime and discontinue a.m. dose 09/15/2024: Increase clozapine to 50 mg in the morning. Increase glycopyrrolate to 1.5 mg twice daily. 09/14/2024: Start Clozapine 25 mg in the morning 09/13/24: Continue medications and treatment plan 09/12/2024: Decrease clozapine to 350 mg at bedtime Start glycopyrrolate 1 mg twice daily Decrease haloperidol to 2.5 mg twice daily 09/11/2024: -Increase clozapine to 400mg HS 09/10/2024: -Increase clozapine to 350mg HS 09/09/2024: -Increase haldol back to 2.5mg TID -Increase ipratropium bromide 0.06% under the tongue to 3 sprays TID for sialorrhea -Increase clozapine to 300mg HS 09/08/2024: -Decrease haldol to 2.5mg HS -Discontinue topiramate 09/07/2024: -Decrease haldol to 2.5mg BID -Increase clozapine to 250mg HS 09/06/2024: -Increase Depakote ER to 500mg -Increase ipratropium bromide 0.06% under the tongue to 2 sprays TID -taper Topiramate to 25mg HS to reduce polypharmacy burden 09/05/2024: The patient was admitted to the [facility] ([facility]) on q15 min checks (behavioral with suicide precautions) for safety. The patient will participate in group, recreational, and milieu therapies and will be offered additional individual and family sessions as clinically appropriate. -Continue psychiatric medications: * Clozapine 200mg HS (consider further dose titration) * Topiramate 25mg BID * Haldol 2.5mg TID * Ativan 1mg HS (goal to taper as sleep improves and stabilizes) -Adjust: * Paxil from 30mg BID to 30mg daily -Start: * Depakote ER 250mg HS -Clozapine level, fasting lipid panel, HBA1c tomorrow AM -Repeat EKG given his age and now on multiple medications that can impact QTc interval Inventory Assets Strengths: supportive living environment, cooperative Needs: safety and stabilization, medication adjustment, additional coping skills, inc reased outpatient services Suicide Risk Level Suicide Risk Level: Moderate (q15 min suicide checks) (denies SI but with periods of hallucinations and delusions which can negatively impacting his mood ) Suicide Risk Level Comments: Risk Factors Assessment Male: Yes : Yes Do You Have Access To A Gun?: No Health Problems: Yes Mental Health Diagnoses: Yes Substance Use Disorders: No Previous Attempt: No Family History of Suicide: No Previous Psychiatric Hospitalization: Yes Hopelessness: No Protective Factors Assessment Tenriism Beliefs: Yes Good Rapport with Provider: Yes Interval History Identifying Information REBA KELLY is a 69-year-old man who currently lives [facility], has a history of schizophrenia, recent subdural hematoma, HTN, Type II diabetes, HLD, BPH and was admitted on 09/04/24 14:12 on a 304 involuntary commitment for psychosis and disorganization. Chief Complaint Psychosis, AMS Review of Systems Sleep Information Total Hours of Sleep: 7.5 Sleep Comments: Incontinent of urine Meal Information Percent Meal Consumed - Breakfast: 100 Percent Meal Consumed - Lunch: 90 Percent Meal Consumed - Dinner: 75 Nutrition Comment: staff sat with patient while he ate Subjective Subjective Patient was seen & assessed and interval progress reviewed with treatment team nursing and social work Overnight slept well. No incontinence episodes. On interview patient is unable to state the year or month. Understands the location. Physical Exam Mental Examination Appearance: Disheveled Eye Contact: Maintains Eye Contact Motor Behavior: Slowed and Weakness Speech: Soft and Disorganized Mood: Calm Affect: Blunted Thought Process: Disorganized, Loose Associations and Slowed Thinking Thought Content: Disorganized and Preoccupation Hallucinations: Auditory Insight: Poor Judgement: Poor Vital Signs (Past 24 Hours) Last Vital Signs Temp 36.6 C 10/09/24 06:41 Pulse 73 10/09/24 06:41 Resp 16 10/09/24 06:41 BP 149/94 H 10/09/24 06:41 Pulse Ox 96 10/08/24 06:27 O2 Del Method Room Air 10/08/24 06:27 Results & Data ([facility]) Laboratory Results Laboratory Results - last 24 hr 10/09/24 10/09/24 06:37 08:44 WBC 10.96 H RBC 3.99 L Hgb 11.8 L Hct 35.7 L MCV 89.5 MCH 29.6 MCHC 33.1 RDW Std Deviation 41.1 RDW Coeff of Kay 12.6 Plt Count 180 MPV 10.9 Immature Gran % (Auto) 0.3 Neut % (Auto) 72.1 Lymph % (Auto) 13.0 [place] % (Auto) 9.6 Eos % (Auto) 4.7 Baso % (Auto) 0.3 Neut # (Auto) 7.91 H Lymph # (Auto) 1.43 [place] # (Auto) 1.05 H Eos # (Auto) 0.51 H Baso # (Auto) 0.03 Immature Gran # (Auto) 0.03 POC Glucose 108 H Current Inpatient Medications Current Inpatient Medications: Current Inpatient Medications Acetaminophen (Acetaminophen 325 Mg Tab) 650 mg PO Q4H PRN PRN Reason: Headache or Minor Fever Stop: 11/02/24 14:11 Last Admin: 10/04/24 21:24 Dose: 650 mg Al Hydrox/Mg Hydrox/Simethicone (Aluminum/Magnesium Susp 30 Ml Udc) 30 ml PO Q4H PRN PRN Reason: GI Upset Stop: 11/02/24 14:11 Atorvastatin Calcium (Atorvastatin 40 Mg Tab) 40 mg PO HS [facility]ATRICE Stop: 11/02/24 21:59 Last Admin: 10/08/24 20:55 Dose: 40 mg Bismuth Subsalicylate (Bismuth Subsalicylate 262 Mg Chew) 2 tab PO Q30M PRN PRN Reason: Loose Stool/Diarrhea Stop: 11/02/24 14:11 Clozapine (Clozapine 100 Mg Tab) 600 mg PO HS [facility]RICE Stop: 11/04/24 21:59 Last Admin: 10/08/24 20:54 Dose: 600 mg Cyanocobalamin (Cyanocobalamin (B-12) 100 Mcg Tablet) 100 mcg PO QAM [facility] Stop: 11/02/24 08:59 Last Admin: 10/09/24 08:46 Dose: 100 mcg Docusate Sodium (Docusate Sodium 100 Mg Cap) 100 mg PO BID [facility]ICE Stop: 11/02/24 20:59 Last Admin: 10/09/24 08:47 Dose: 100 mg Glycopyrrolate (Glycopyrrolate 1 Mg Tab) 2 mg PO BID [facility]RICE Stop: 10/30/24 20:59 Last Admin: 10/09/24 08:47 Dose: 2 mg Haloperidol (Haloperidol 5 Mg Tab) 5 mg PO BID PRN PRN Reason: psychosis Stop: 11/02/24 09:02 Last Admin: 10/02/24 12:10 Dose: 5 mg Haloperidol (Haloperidol 5 Mg Tab) 5 mg PO BID [facility]RICE Stop: 10/27/24 20:59 Last Admin: 10/09/24 08:47 Dose: 5 mg Haloperidol Lactate (Haloperidol Lactate 5 Mg/Ml 1 Ml Vial) 5 mg IM BID PRN PRN Reason: agitation Stop: 11/02/24 15:34 Hydroxyzine HCl (Hydroxyzine Hcl 25 Mg Tab) 50 mg PO HSZ PRN PRN Reason: Insomnia Stop: 11/02/24 14:11 Last Admin: 09/28/24 01:21 Dose: 50 mg Hydroxyzine HCl (Hydroxyzine Hcl 25 Mg Tab) 25 mg PO Q4H PRN PRN Reason: Anxiety Stop: 11/02/24 14:11 Levothyroxine Sodium (Levothyroxine Sodium 25 Mcg Tablet) 25 mcg PO DAILYBB [facility] Stop: 11/02/24 07:59 Last Admin: 10/09/24 08:58 Dose: 25 mcg Lisinopril (Lisinopril 20 Mg Tab) 20 mg PO DAILY [facility] Stop: 11/02/24 08:59 Last Admin: 10/09/24 08:48 Dose: 20 mg Lorazepam (Lorazepam 2 Mg/1 Ml Vial) 1 mg IM BID PRN PRN Reason: Agitation Stop: 11/02/24 15:34 Lorazepam (Lorazepam 1 Mg Tab) 1 mg PO DAILY PRN PRN Reason: restlessness Stop: 11/02/24 02:10 Last Admin: 09/25/24 07:46 Dose: 1 mg Lorazepam (Lorazepam 1 Mg Tab) 1 mg PO HS PRN PRN Reason: insomnia Stop: 11/02/24 16:13 Magnesium Hydroxide (Magnesium Hydroxide Susp 30 Ml Udc) 30 ml PO DAILY PRN PRN Reason: Constipation Stop: 11/02/24 14:11 Last Admin: 10/02/24 21:05 Dose: 30 ml Melatonin (Melatonin 3 Mg Tab) 3 mg PO HS [facility] Stop: 11/03/24 21:59 Last Admin: 10/08/24 20:55 Dose: 3 mg Meloxicam (Meloxicam 7.5 Mg Tab) 15 mg PO DAILY [facility] Stop: 11/02/24 08:59 Last Admin: 10/09/24 08:48 Dose: 15 mg Metformin HCl (Metformin Hcl 500 Mg Tab) 1,000 mg PO BID17 [facility] Stop: 11/02/24 16:59 Last Admin: 10/09/24 08:48 Dose: 1,000 mg Miscellaneous (Remove Nicoderm Patch) 1 each N/A 2100 [facility] Stop: 11/02/24 20:59 Last Admin: 10/09/24 08:58 Dose: Not Given Multivitamins (Multivitamin Tab) 1 tab PO DAILY [facility] Stop: 11/02/24 08:59 Last Admin: 10/09/24 08:49 Dose: 1 tab Nicotine (Nicotine 21 Mg/24 Hr Tdsy) 1 patch TD QAM [facility] Stop: 11/02/24 09:44 Last Admin: 10/09/24 08:50 Dose: 1 patch Nicotine Polacrilex (Nicotine Polacrilex 2 Mg Gum) 1 piece MT Q2H PRN PRN Reason: smoking cessation Stop: 11/02/24 15:22 Last Admin: 09/29/24 10:35 Dose: 1 piece Paroxetine HCl (Paroxetine Hcl 10 Mg Tab) 30 mg PO DAILY [facility] Stop: 10/25/24 08:59 Last Admin: 10/09/24 08:49 Dose: 30 mg Phenylephrine HCl (Phenylephrine 0.25% Supp 1 Ea) 1 supp [place] DAILY PRN PRN Reason: Hemorrhoids Stop: 11/04/24 15:02 Polyethylene Glycol (Polyethylene (Miralax) 17 Gm Pack) 17 gm PO DAILY [facility] Stop: 11/02/24 08:59 Last Admin: 10/09/24 08:51 Dose: 17 gm Sennosides (Senna 8.6 Mg Tab) 8.6 mg PO Q2D PRN PRN Reason: constipation Stop: 11/02/24 15:30 Sodium Chloride (Sodium Chloride 0.65% Na Soln 45 Ml (Dent)) 1 - 2 sprays NA PRN PRN PRN Reason: Nasal Dryness/Congestion Stop: 11/02/24 14:11 Vitamin D (Cholecalciferol 25 Mcg (1000 Units) Tab) 50 mcg PO QAM [facility] Stop: 11/02/24 08:59 Last Admin: 10/09/24 08:46 Dose: 50 mcg Mental Health & Subst Abuse Tx Psychiatrist Name of Psychiatrist: Haley Mazariegos (on maternity leave) will be seen by Dr. Juarez at [facility] Psychiatrist's Date Of Appointment With Psychiatric Provider: 09/27/24 Time of Appointment with Psychiatrist: 1:45PM Psychiatric Appointment Comment: [address] [place], [place] [id number] School Health Assistant Name of School Health Assistant: [facility] child welfare caseworker Phone Number for School Health Assistant: [phone] Post Discharge Appointments Primary Care Physician Name Of Family Doctor/PCP: Dr. Deonte Martinez - [address] [place] [address] Primary Care Date of Future Appointment with PCP: 09/28/24 Time of Appointment with PCP: 8AM Provider Appointment Comment: Arrive @ 745AM, will be seen by ROSE Espinal. [facility] via [facility] meds. Contact Information Discharge Discharge Address: [address] [place] [id number] (1) Psychosis Psychosis type: schizophrenia Schizophrenia type: paranoid schizophrenia Qualified Code(s): F20.0 - Paranoid schizophrenia
--- NOTE | 2024-10-10 13:09 | Psychiatric Progress Note ---
Date of Service October 10, 2024 Impression / Recommendations Impression REBA KELLY is a 69-year-old man who currently lives [facility], has a history of schizophrenia, recent subdural hematoma, HTN, Type II diabetes, HLD, BPH and was admitted on 09/04/24 14:12 on a 303 involuntary commitment for psychosis and disorganization and now on a 304 commitment granted on 09/23/2024. Diagnosis: Schizophrenia vs Schizoaffective Disorder Bipolar Type. s/p TBI with subdural hematoma (resolved) with low suspicion for confusion at this time. Pt had been stable on clozapine for many years but seems to have decompensated in the setting of his recent fall. A: Concern for excess anticholinergic burden from clozapine with increased confusion, disorientation, and dysarthria. Lowered dose of clozapine and evaluating response. Concern for on-going psychosis. MNPR due to previous disrobing, psychosis, disorganization and need to be able to use bedside urinal Overall, I spent a total of 35 minutes on this case including meeting with the patient, reviewing the chart, nursing report, orders, evidence base review and documentation. (1) Psychosis: (2) Schizophrenia: (3) Auditory hallucinations: (4) Sialorrhea: (5) Hypersexuality: (6) Hyperlipidemia: (7) Type 2 diabetes mellitus: (8) Hypertension: (9) Insomnia: Plan 10/10/2024: Continue medications and treatment plan 10/09/2024: Decrease clozapine to 500mg HS Repeat clozapine level 10/08/2024: Continue medications and treatment plan 10/07/2024: -Continue current medications and tx plan 10/06/2024: -Continue current medications and tx plan 10/05/2024: -Increase clozapine to 600mg HS 10/04/2024: -Discontinue Depakote -Schedule melatonin 3mg HS 10/03/2024: -Continue current medications and tx plan. 10/02/2024: -Taper Depakote to 500mg HS 10/01/24 Continue medication at current doses. Continue disposition planning. 09/30/24: Increase Glycopyrrolate to 2mg bid for hypersalivation. Continue other medication at current doses. 09/29/24: Continue medication regimen. Scheduled for evaluation by the Office of Aging on . 09/28/24: Add Melatonin 3mg qhs. Continue other medication at current doses. 09/27/24: Increase Haldol to 5mg bid Continue other medication at current doses. 09/26/24 Continue medication at current doses. Will review indication for Paxil. Continue orthostatic vital sign monitoring bid (130s-160s/80s today) along with close monitoring given fall risk. 09/25/2024: -Start haldol 2.5mg BID 09/24/2024: -Decrease Paxil to 30mg daily 09/23/2024: -Increase clozapine to 500mg HS 09/22/2024: -Increase Depakote ER to 1000mg HS -Discontinue Ativan HS scheduled, adjust to prn in case contributing to falls -Orthostatic vitals BID -PT consult 09/21/2024: Clozapine level tomorrow AM 09/20/2024: Increase clozapine to 450mg HS. 09/19/2024: Increase Paxil to 30mg BID 09/18/2024: Continue medications and treatment plan 09/17/2024 Discontinue Haloperidol 09/16/2024: Clozapine to 400 mg at bedtime and discontinue a.m. dose 09/15/2024: Increase clozapine to 50 mg in the morning. Increase glycopyrrolate to 1.5 mg twice daily. 09/14/2024: Start Clozapine 25 mg in the morning 09/13/24: Continue medications and treatment plan 09/12/2024: Decrease clozapine to 350 mg at bedtime Start glycopyrrolate 1 mg twice daily Decrease haloperidol to 2.5 mg twice daily 09/11/2024: -Increase clozapine to 400mg HS 09/10/2024: -Increase clozapine to 350mg HS 09/09/2024: -Increase haldol back to 2.5mg TID -Increase ipratropium bromide 0.06% under the tongue to 3 sprays TID for sialorrhea -Increase clozapine to 300mg HS 09/08/2024: -Decrease haldol to 2.5mg HS -Discontinue topiramate 09/07/2024: -Decrease haldol to 2.5mg BID -Increase clozapine to 250mg HS 09/06/2024: -Increase Depakote ER to 500mg -Increase ipratropium bromide 0.06% under the tongue to 2 sprays TID -taper Topiramate to 25mg HS to reduce polypharmacy burden 09/05/2024: The patient was admitted to the [facility] ([facility]) on q15 min checks (behavioral with suicide precautions) for safety. The patient will participate in group, recreational, and milieu therapies and will be offered additional individual and family sessions as clinically appropriate. -Continue psychiatric medications: * Clozapine 200mg HS (consider further dose titration) * Topiramate 25mg BID * Haldol 2.5mg TID * Ativan 1mg HS (goal to taper as sleep improves and stabilizes) -Adjust: * Paxil from 30mg BID to 30mg daily -Start: * Depakote ER 250mg HS -Clozapine level, fasting lipid panel, HBA1c tomorrow AM -Repeat EKG given his age and now on multiple medications that can impact QTc interval Inventory Assets Strengths: supportive living environment, cooperative Needs: safety and stabilization, medication adjustment, additional coping skills, increased outpatient services Suicide Risk Level Suicide Risk Level: Moderate (q15 min suicide checks) (denies SI but with periods of hallucinations and delusions which can negatively impacting his mood ) Suicide Risk Level Comments: Risk Factors Assessment Male: Yes : Yes Do You Have Access To A Gun?: No Health Problems: Yes Mental Health Diagnoses: Yes Substance Use Disorders: No Previous Attempt: No Family History of Suicide: No Previous Psychiatric Hospitalization: Yes Hopelessness: No Protective Factors Assessment Quaker Beliefs: Yes Good Rapport with Provider: Yes Interval History Identifying Information REBA KELLY is a 69-year-old man who currently lives [facility], has a history of schizophrenia, recent subdural hematoma, HTN, Type II diabetes, HLD, BPH and was admitted on 09/04/24 14:12 on a 304 involuntary commitment for psychosis and disorganization. Chief Complaint Psychosis, AMS Review of Systems Sleep Information Total Hours of Sleep: 5.25 Sleep Comments: Incontinent of urine Meal Information Percent Meal Consumed - Breakfast: 50 Percent Meal Consumed - Lunch: 0 Percent Meal Consumed - Dinner: 100 Nutrition Comment: pt. had a late breakfast Subjective Subjective Patient was seen & assessed and interval progress reviewed with treatment team nursing and social work Overnight no incontinence episodes. Seen responding during dinner. Continues to isolate. Stopped at 5.25 hours. On interview when asked about his voices he mumbles and is incomprehensible. Unable to state the year/month or location. When asked how he is doing he replies "thank you for coming in". Physical Exam Mental Examination Appearance: Disheveled Eye Contact: Maintains Eye Contact Motor Behavior: Slowed and Weakness Speech: Soft and Disorganized Mood: Calm Affect: Blunted Thought Process: Disorganized, Loose Associations and Slowed Thinking Thought Content: Disorganized and Preoccupation Hallucinations: Auditory Insight: Poor Judgement: Poor Vital Signs (Past 24 Hours) Last Vital Signs Temp 37 C 10/10/24 06:22 Pulse 83 10/10/24 06:23 Resp 16 10/10/24 06:22 BP 115/66 10/10/24 06:23 Pulse Ox 96 10/08/24 06:27 O2 Del Method Room Air 10/08/24 06:27 Results & Data ([facility]) Laboratory Results Laboratory Results - last 24 hr 10/09/24 10/10/24 13:13 08:36 POC Glucose 101 H Clozapine Pending Norclozapine Pending Current Inpatient Medications Current Inpatient Medications: Current Inpatient Medications Acetaminophen (Acetaminophen 325 Mg Tab) 650 mg PO Q4H PRN PRN Reason: Headache or Minor Fever Stop: 11/02/24 14:11 Last Admin: 10/04/24 21:24 Dose: 650 mg Al Hydrox/Mg Hydrox/Simethicone (Aluminum/Magnesium Susp 30 Ml Udc) 30 ml PO Q4H PRN PRN Reason: GI Upset Stop: 11/02/24 14:11 Atorvastatin Calcium (Atorvastatin 40 Mg Tab) 40 mg PO HS [facility] Stop: 11/02/24 21:59 Last Admin: 10/09/24 20:23 Dose: 40 mg Bismuth Subsalicylate (Bismuth Subsalicylate 262 Mg Chew) 2 tab PO Q30M PRN PRN Reason: Loose Stool/Diarrhea Stop: 11/02/24 14:11 Clozapine (Clozapine 100 Mg Tab) 600 mg PO HS [facility] Stop: 11/04/24 21:59 Last Admin: 10/09/24 20:23 Dose: 600 mg Cyanocobalamin (Cyanocobalamin (B-12) 100 Mcg Tablet) 100 mcg PO QAM [facility] Stop: 11/02/24 08:59 Last Admin: 10/10/24 10:04 Dose: 100 mcg Docusate Sodium (Docusate Sodium 100 Mg Cap) 100 mg PO BID [facility] Stop: 11/02/24 20:59 Last Admin: 10/10/24 10:04 Dose: 100 mg Glycopyrrolate (Glycopyrrolate 1 Mg Tab) 2 mg PO BID [facility] Stop: 10/30/24 20:59 Last Admin: 10/10/24 10:04 Dose: 2 mg Haloperidol (Haloperidol 5 Mg Tab) 5 mg PO BID PRN PRN Reason: psychosis Stop: 11/02/24 09:02 Last Admin: 10/02/24 12:10 Dose: 5 mg Haloperidol (Haloperidol 5 Mg Tab) 5 mg PO BID [facility] Stop: 10/27/24 20:59 Last Admin: 10/10/24 10:05 Dose: 5 mg Haloperidol Lactate (Haloperidol Lactate 5 Mg/Ml 1 Ml Vial) 5 mg IM BID PRN PRN Reason: agitation Stop: 11/02/24 15:34 Hydroxyzine HCl (Hydroxyzine Hcl 25 Mg Tab) 50 mg PO HSZ PRN PRN Reason: Insomnia Stop: 11/02/24 14:11 Last Admin: 09/28/24 01:21 Dose: 50 mg Hydroxyzine HCl (Hydroxyzine Hcl 25 Mg Tab) 25 mg PO Q4H PRN PRN Reason: Anxiety Stop: 11/02/24 14:11 Levothyroxine Sodium (Levothyroxine Sodium 25 Mcg Tablet) 25 mcg PO DAILYBB [facility] Stop: 11/02/24 07:59 Last Admin: 10/10/24 10:03 Dose: 25 mcg Lisinopril (Lisinopril 20 Mg Tab) 20 mg PO DAILY [facility] Stop: 11/02/24 08:59 Last Admin: 10/10/24 10:05 Dose: 20 mg Lorazepam (Lorazepam 2 Mg/1 Ml Vial) 1 mg IM BID PRN PRN Reason: Agitation Stop: 11/02/24 15:34 Lorazepam (Lorazepam 1 Mg Tab) 1 mg PO DAILY PRN PRN Reason: restlessness Stop: 11/02/24 02:10 Last Admin: 09/25/24 07:46 Dose: 1 mg Lorazepam (Lorazepam 1 Mg Tab) 1 mg PO HS PRN PRN Reason: insomnia Stop: 11/02/24 16:13 Magnesium Hydroxide (Magnesium Hydroxide Susp 30 Ml Udc) 30 ml PO DAILY PRN PRN Reason: Constipation Stop: 11/02/24 14:11 Last Admin: 10/02/24 21:05 Dose: 30 ml Melatonin (Melatonin 3 Mg Tab) 3 mg PO HS [facility] Stop: 11/03/24 21:59 Last Admin: 10/09/24 20:24 Dose: 3 mg Meloxicam (Meloxicam 7.5 Mg Tab) 15 mg PO DAILY [facility] Stop: 11/02/24 08:59 Last Admin: 10/10/24 10:05 Dose: 15 mg Metformin HCl (Metformin Hcl 500 Mg Tab) 1,000 mg PO BID17 [facility] Stop: 11/02/24 16:59 Last Admin: 10/10/24 10:05 Dose: 1,000 mg Miscellaneous (Remove Nicoderm Patch) 1 each N/A 2100 [facility] Stop: 11/02/24 20:59 Last Admin: 10/09/24 08:58 Dose: Not Given Multivitamins (Multivitamin Tab) 1 tab PO DAILY [facility] Stop: 11/02/24 08:59 Last Admin: 10/10/24 10:06 Dose: 1 tab Nicotine (Nicotine 21 Mg/24 Hr Tdsy) 1 patch TD QAM [facility] Stop: 11/02/24 09:44 Last Admin: 10/10/24 10:23 Dose: 1 patch Nicotine Polacrilex (Nicotine Polacrilex 2 Mg Gum) 1 piece MT Q2H PRN PRN Reason: smoking cessation Stop: 11/02/24 15:22 Last Admin: 09/29/24 10:35 Dose: 1 piece Paroxetine HCl (Paroxetine Hcl 10 Mg Tab) 30 mg PO DAILY [facility] Stop: 10/25/24 08:59 Last Admin: 10/10/24 10:06 Dose: 30 mg Phenylephrine HCl (Phenylephrine 0.25% Supp 1 Ea) 1 supp ID DAILY PRN PRN Reason: Hemorrhoids Stop: 11/04/24 15:02 Polyethylene Glycol (Polyethylene (Miralax) 17 Gm Pack) 17 gm PO DAILY [facility] Stop: 11/02/24 08:59 Last Admin: 10/10/24 09:58 Dose: 17 gm Sennosides (Senna 8.6 Mg Tab) 8.6 mg PO Q2D PRN PRN Reason: constipation Stop: 11/02/24 15:30 Sodium Chloride (Sodium Chloride 0.65% Na Soln 45 Ml ([place])) 1 - 2 sprays NA PRN PRN PRN Reason: Nasal Dryness/Congestion Stop: 11/02/24 14:11 Vitamin D (Cholecalciferol 25 Mcg (1000 Units) Tab) 50 mcg PO QAM [facility] Stop: 11/02/24 08:59 Last Admin: 10/10/24 10:04 Dose: 50 mcg Mental Health & Subst Abuse Tx Psychiatrist Name of Psychiatrist: Haleynichole Mazariegos (on maternity leave) will be seen by Dr. Juarez at [facility] Psychiatrist's Date Of Appointment With Psychiatric Provider: 09/27/24 Time of Appointment with Psychiatrist: 1:45PM Psychiatric Appointment Comment: [address] [place] [address] [place] [phone] Brake Adjuster Name of Brake Adjuster: [facility] unit child welfare caseworker Phone Number for Brake Adjuster: [phone] Post Discharge Appointments Primary Care Physician Name Of Family Doctor/PCP: Dr. Deonte Martinez - [address] [place] [address] Primary Care Date of Future Appointment with PCP: 09/28/24 Time of Appointment with PCP: 8AM Provider Appointment Comment: Arrive @ 745AM, will be seen by ROSE Espinal. Check in via [email or web address]. Bring meds. Contact Information Discharge Discharge Address: [address] [place] [address] [place] [phone] (1) Psychosis Psychosis type: schizophrenia Schizophrenia type: paranoid schizophrenia Qualified Code(s): F20.0 - Paranoid schizophrenia
--- NOTE | 2024-10-11 13:54 | Psychiatric Progress Note ---
Date of Service October 11, 2024 Impression / Recommendations Impression REBA KELLY is a 69-year-old man who currently lives [facility], has a history of schizophrenia, recent subdural hematoma, HTN, Type II diabetes, HLD, BPH and was admitted on 09/04/24 14:12 on a 303 involuntary commitment for psychosis and disorganization and now on a 304 commitment granted on 09/23/2024. Diagnosis: Schizophrenia vs Schizoaffective Disorder Bipolar Type. s/p TBI with subdural hematoma (resolved) with low suspicion for confusion at this time. Pt had been stable on clozapine for many years but seems to have decompensated in the setting of his recent fall. A: Concern for excess anticholinergic burden from clozapine with increased confusion, disorientation, and dysarthria. Lowered dose of clozapine and evaluating response. Concern for on-going psychosis and disinhibition. Plan to trial Memantine to address behavioral dyscontrol, persistent confusion/disorientation. MNPR due to previous disrobing, psychosis, disorganization and need to be able to use bedside urinal Overall, I spent a total of 35 minutes on this case including meeting with the patient, reviewing the chart, nursing report, orders, evidence base review and documentation. (1) Psychosis: (2) Schizophrenia: (3) Auditory hallucinations: (4) Sialorrhea: (5) Hypersexuality: (6) Hyperlipidemia: (7) Type 2 diabetes mellitus: (8) Hypertension: (9) Insomnia: Plan 10/11/24: Start Memantine 5mg daily 10/10/2024: Continue medications and treatment plan 10/09/2024: Decrease clozapine to 500mg HS Repeat clozapine level 10/08/2024: Continue medications and treatment plan 10/07/2024: -Continue current medications and tx plan 10/06/2024: -Continue current medications and tx plan 10/05/2024: -Increase clozapine to 600mg HS 10/04/2024: -Discontinue Depakote -Schedule melatonin 3mg HS 10/03/2024: -Continue current medications and tx plan. 10/02/2024: -Taper Depakote to 500mg HS 10/01/24 Continue medication at current doses. Continue disposition planning. 09/30/24: Increase Glycopyrrolate to 2mg bid for hypersalivation. Continue other medication at current doses. 09/29/24: Continue medication regimen. Scheduled for evaluation by the Office of Aging on . 09/28/24: Add Melatonin 3mg qhs. Continue other medication at current doses. 09/27/24: Increase Haldol to 5mg bid Continue other medication at current doses. 09/26/24 Continue medication at current doses. Will review indication for Paxil. Continue orthostatic vital sign monitoring bid (130s-160s/80s today) along with close monitoring given fall risk. 09/25/2024: -Start haldol 2.5mg BID 09/24/2024: -Decrease Paxil to 30mg daily 09/23/2024: -Increase clozapine to 500mg HS 09/22/2024: -Increase Depakote ER to 1000mg HS -Discontinue Ativan HS scheduled, adjust to prn in case contributing to falls -Orthostatic vitals BID -PT consult 09/21/2024: Clozapine level tomorrow AM 09/20/2024: Increase clozapine to 450mg HS. 09/19/2024: Increase Paxil to 30mg BID 09/18/2024: Continue medications and treatment plan 09/17/2024 Discontinue Haloperidol 09/16/2024: Clozapine to 400 mg at bedtime and discontinue a.m. dose 09/15/2024: Increase clozapine to 50 mg in the morning. Increase glycopyrrolate to 1.5 mg twice daily. 09/14/2024: Start Clozapine 25 mg in the morning 09/13/24: Continue medications and treatment plan 09/12/2024: Decrease clozapine to 350 mg at bedtime Start glycopyrrolate 1 mg twice daily Decrease haloperidol to 2.5 mg twice daily 09/11/2024: -Increase clozapine to 400mg HS 09/10/2024: -Increase clozapine to 350mg HS 09/09/2024: -Increase haldol back to 2.5mg TID -Increase ipratropium bromide 0.06% under the tongue to 3 sprays TID for sialorrhea -Increase clozapine to 300mg HS 09/08/2024: -Decrease haldol to 2.5mg HS -Discontinue topiramate 09/07/2024: -Decrease haldol to 2.5mg BID -Increase clozapine to 250mg HS 09/06/2024: -Increase Depakote ER to 500mg -Increase ipratropium bromide 0.06% under the tongue to 2 sprays TID -taper Topiramate to 25mg HS to reduce polypharmacy burden 09/05/2024: The patient was admitted to the [facility] on q15 min checks (behavioral with suicide precautions) for safety. The patient will participate in group, recreational, and milieu therapies and will be offered additional individual and family sessions as clinically appropriate. -Continue psychiatric medications: * Clozapine 200mg HS (consider further dose titration) * Topiramate 25mg BID * Haldol 2.5mg TID * Ativan 1mg HS (goal to taper as sleep improves and stabilizes) -Adjust: * Paxil from 30mg BID to 30mg daily -Start: * Depakote ER 250mg HS -Clozapine level, fasting lipid panel, HBA1c tomorrow AM -Repeat EKG given his age and now on multiple medications that can impact QTc interval Inventory Assets Strengths: supportive living environment, cooperative Needs: safety and stabilization, medication adjustment, additional coping skills, increased outpatient services Suicide Risk Level Suicide Risk Level: Moderate (q15 min suicide checks) (denies SI but with periods of hallucinations and delusions which can negatively impacting his mood ) Suicide Risk Level Comments: Risk Factors Assessment Male: Yes : Yes Do You Have Access To A Gun?: No Health Problems: Yes Mental Health Diagnoses: Yes Substance Use Disorders: No Previous Attempt: No Family History of Suicide: No Previous Psychiatric Hospitalization: Yes Hopelessness: No Protective Factors Assessment Buddhist Beliefs: Yes Good Rapport with Provider: Yes Interval History Identifying Information REBA KELLY is a 69-year-old man who currently lives [facility], has a history of schizophrenia, recent subdural hematoma, HTN, Type II diabetes, HLD, BPH and was admitted on 09/04/24 14:12 on a 304 involuntary commitment for psychosis and disorganization. Chief Complaint Psychosis, AMS Review of Systems Sleep Information Total Hours of Sleep: 6 Sleep Comments: Incontinent of urine Meal Information Percent Meal Consumed - Breakfast: 75 Percent Meal Consumed - Lunch: 100 Percent Meal Consumed - Dinner: 0 Nutrition Comment: Patient ate some carrots and then states, "I'm not hungry." Subjective Subjective Patient was seen & assessed and interval progress reviewed with treatment team nursing and social work. Overnight no incontinence episode. Slept 5.25 hrs. Isolative from peers. Refused dinner last night. Pt AO to self, hospital only. Unable to state year or month. Seen sitting upright reading the bible. Dysarthric voice and difficult to comprehend. Reports drooling has improved. Denies hearing voices today. Says he blesses me. Physical Exam Mental Examination Appearance: Disheveled Eye Contact: Maintains Eye Contact Motor Behavior: Slowed and Weakness Speech: Soft and Disorganized Mood: Calm Affect: Blunted Thought Process: Disorganized, Loose Associations and Slowed Thinking Thought Content: Disorganized and Preoccupation Hallucinations: Auditory Insight: Poor Judgement: Poor Vital Signs (Past 24 Hours) Last Vital Signs Temp 36.6 C 10/11/24 06:20 Pulse 66 10/11/24 06:20 Resp 16 10/11/24 06:20 BP 118/77 10/11/24 06:20 Pulse Ox 96 10/08/24 06:27 O2 Del Method Room Air 10/08/24 06:27 Results & Data ([facility]) Laboratory Results Laboratory Results - last 24 hr 10/11/24 08:32 POC Glucose 119 H Current Inpatient Medications Current Inpatient Medications: Current Inpatient Medications Acetaminophen (Acetaminophen 325 Mg Tab) 650 mg PO Q4H PRN PRN Reason: Headache or Minor Fever Stop: 11/02/24 14:11 Last Admin: 10/04/24 21:24 Dose: 650 mg Al Hydrox/Mg Hydrox/Simethicone (Aluminum/Magnesium Susp 30 Ml Udc) 30 ml PO Q4H PRN PRN Reason: GI Upset Stop: 11/02/24 14:11 Atorvastatin Calcium (Atorvastatin 40 Mg Tab) 40 mg PO HS [facility]ATRICE Stop: 11/02/24 21:59 Last Admin: 10/10/24 20:46 Dose: 40 mg Bismuth Subsalicylate (Bismuth Subsalicylate 262 Mg Chew) 2 tab PO Q30M PRN PRN Reason: Loose Stool/Diarrhea Stop: 11/02/24 14:11 Clozapine (Clozapine 100 Mg Tab) 500 mg PO HS [facility]ATRICE Stop: 11/10/24 21:59 Cyanocobalamin (Cyanocobalamin (B-12) 100 Mcg Tablet) 100 mcg PO QAM [facility] Stop: 11/02/24 08:59 Last Admin: 10/11/24 08:35 Dose: 100 mcg Docusate Sodium (Docusate Sodium 100 Mg Cap) 100 mg PO BID [facility]ATRICE Stop: 11/02/24 20:59 Last Admin: 10/11/24 08:35 Dose: 100 mg Glycopyrrolate (Glycopyrrolate 1 Mg Tab) 2 mg PO BID [facility]ATRICE Stop: 10/30/24 20:59 Last Admin: 10/11/24 08:35 Dose: 2 mg Haloperidol (Haloperidol 5 Mg Tab) 5 mg PO BID PRN PRN Reason: psychosis Stop: 11/02/24 09:02 Last Admin: 10/02/24 12:10 Dose: 5 mg Haloperidol (Haloperidol 5 Mg Tab) 5 mg PO BID BEATRICE Stop: 10/27/24 20:59 Last Admin: 10/11/24 08:35 Dose: 5 mg Haloperidol Lactate (Haloperidol Lactate 5 Mg/Ml 1 Ml Vial) 5 mg IM BID PRN PRN Reason: agitation Stop: 11/02/24 15:34 Hydroxyzine HCl (Hydroxyzine Hcl 25 Mg Tab) 50 mg PO HSZ PRN PRN Reason: Insomnia Stop: 11/02/24 14:11 Last Admin: 09/28/24 01:21 Dose: 50 mg Hydroxyzine HCl (Hydroxyzine Hcl 25 Mg Tab) 25 mg PO Q4H PRN PRN Reason: Anxiety Stop: 11/02/24 14:11 Levothyroxine Sodium (Levothyroxine Sodium 25 Mcg Tablet) 25 mcg PO DAILYBB [facility] Stop: 11/02/24 07:59 Last Admin: 10/11/24 08:35 Dose: 25 mcg Lisinopril (Lisinopril 20 Mg Tab) 20 mg PO DAILY [facility]ATRICE Stop: 11/02/24 08:59 Last Admin: 10/11/24 08:35 Dose: 20 mg Lorazepam (Lorazepam 2 Mg/1 Ml Vial) 1 mg IM BID PRN PRN Reason: Agitation Stop: 11/02/24 15:34 Lorazepam (Lorazepam 1 Mg Tab) 1 mg PO DAILY PRN PRN Reason: restlessness Stop: 11/02/24 02:10 Last Admin: 09/25/24 07:46 Dose: 1 mg Lorazepam (Lorazepam 1 Mg Tab) 1 mg PO HS PRN PRN Reason: insomnia Stop: 11/02/24 16:13 Magnesium Hydroxide (Magnesium Hydroxide Susp 30 Ml Udc) 30 ml PO DAILY PRN PRN Reason: Constipation Stop: 11/02/24 14:11 Last Admin: 10/02/24 21:05 Dose: 30 ml Melatonin (Melatonin 3 Mg Tab) 3 mg PO HS [facility]ATRICE Stop: 11/03/24 21:59 Last Admin: 10/10/24 20:45 Dose: 3 mg Meloxicam (Meloxicam 7.5 Mg Tab) 15 mg PO DAILY [facility]RICE Stop: 11/02/24 08:59 Last Admin: 10/11/24 08:36 Dose: 15 mg Metformin HCl (Metformin Hcl 500 Mg Tab) 1,000 mg PO BID17 [facility]RICE Stop: 11/02/24 16:59 Last Admin: 10/11/24 08:35 Dose: 1,000 mg Miscellaneous (Remove Nicoderm Patch) 1 each N/A 2100 [facility]RICE Stop: 11/02/24 20:59 Last Admin: 10/10/24 20:50 Dose: 1 each Multivitamins (Multivitamin Tab) 1 tab PO DAILY [facility]RICE Stop: 11/02/24 08:59 Last Admin: 10/11/24 08:36 Dose: 1 tab Nicotine (Nicotine 21 Mg/24 Hr Tdsy) 1 patch TD QAM [facility] Stop: 11/02/24 09:44 Last Admin: 10/11/24 08:35 Dose: 1 patch Nicotine Polacrilex (Nicotine Polacrilex 2 Mg Gum) 1 piece MT Q2H PRN PRN Reason: smoking cessation Stop: 11/02/24 15:22 Last Admin: 09/29/24 10:35 Dose: 1 piece Paroxetine HCl (Paroxetine Hcl 10 Mg Tab) 30 mg PO DAILY [facility] Stop: 10/25/24 08:59 Last Admin: 10/11/24 08:36 Dose: 30 mg Phenylephrine HCl (Phenylephrine 0.25% Supp 1 Ea) 1 supp DE DAILY PRN PRN Reason: Hemorrhoids Stop: 11/04/24 15:02 Polyethylene Glycol (Polyethylene (Miralax) 17 Gm Pack) 17 gm PO DAILY [facility]RICE Stop: 11/02/24 08:59 Last Admin: 10/11/24 08:35 Dose: 17 gm Sennosides (Senna 8.6 Mg Tab) 8.6 mg PO Q2D PRN PRN Reason: constipation Stop: 11/02/24 15:30 Sodium Chloride (Sodium Chloride 0.65% Na Soln 45 Ml (Brillion)) 1 - 2 sprays NA PRN PRN PRN Reason: Nasal Dryness/Congestion Stop: 11/02/24 14:11 Vitamin D (Cholecalciferol 25 Mcg (1000 Units) Tab) 50 mcg PO QAM [facility] Stop: 11/02/24 08:59 Last Admin: 10/11/24 08:35 Dose: 50 mcg Mental Health & Subst Abuse Tx Psychiatrist Name of Psychiatrist: Haleynichole Mazariegos (on maternity leave) will be seen by Dr. Juarez at [facility] Psychiatrist's Date Of Appointment With Psychiatric Provider: 09/27/24 Time of Appointment with Psychiatrist: 1:45PM Psychiatric Appointment Comment: [facility] [place] [id number] Emergency Veterinary Assistant Name of Emergency Veterinary Assistant: Ev[facility] service unit nurse outreach case manager Phone Number for Emergency Veterinary Assistant: [phone] Post Discharge Appointments Primary Care Physician Name Of Family Doctor/PCP: Dr. Deonte Martinez - [address] [place] [address] Primary Care Date of Future Appointment with PCP: 09/28/24 Time of Appointment with PCP: 8AM Provider Appointment Comment: Arrive @ 745AM, will be seen by ROSE Espinal. Check in via [employer]. 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 Contact Information Discharge Discharge Address: [address] [place] [address] [place] [id number] (1) Psychosis Psychosis type: schizophrenia Schizophrenia type: paranoid schizophrenia Qualified Code(s): F20.0 - Paranoid schizophrenia
[2024-10-12] MEDS: MEMANTINE HCL 5 MG TAB PO SCH (09:09)
--- NOTE | 2024-10-12 13:49 | Psychiatric Progress Note ---
Date of Service October 12, 2024 Impression / Recommendations Impression REBA KELLY is a 69-year-old man who currently lives [facility], has a history of schizophrenia, recent subdural hematoma, HTN, Type II diabetes, HLD, BPH and was admitted on 09/04/24 14:12 on a 303 involuntary commitment for psychosis and disorganization and now on a 304 commitment granted on 09/23/2024. Diagnosis: Schizophrenia vs Schizoaffective Disorder Bipolar Type. s/p TBI with subdural hematoma (resolved) with low suspicion for confusion at this time. Pt had been stable on clozapine for many years but seems to have decompensated in the setting of his recent fall. A: Concern for excess anticholinergic burden from clozapine with increased confusion, disorientation, and dysarthria. Lowered dose of clozapine and evaluating response. Concern for on-going psychosis and disinhibition. Memantine trial to address behavioral dyscontrol, persistent confusion/disorientation. Today is more active, on-going episcopalian preoccupation and seen responding to internal stimuli. Dysarthric and has difficulty engage in the clinical interview. Switched laxative to Q2D dosing given recent incontinence. Clozapine level pending. MNPR due to previous disrobing, psychosis, disorganization and need to be able to use bedside urinal Overall, I spent a total of 35 minutes on this case including meeting with the patient, reviewing the chart, nursing report, orders, evidence base review and documentation. (1) Psychosis: (2) Schizophrenia: (3) Auditory hallucinations: (4) Sialorrhea: (5) Hypersexuality: (6) Hyperlipidemia: (7) Type 2 diabetes mellitus: (8) Hypertension: (9) Insomnia: Plan 10/12/24: Miralax Q2D dosing 10/11/24: Start Memantine 5mg daily 10/10/2024: Continue medications and treatment plan 10/09/2024: Decrease clozapine to 500mg HS Repeat clozapine level 10/08/2024: Continue medications and treatment plan 10/07/2024: -Continue current medications and tx plan 10/06/2024: -Continue current medications and tx plan 10/05/2024: -Increase clozapine to 600mg HS 10/04/2024: -Discontinue Depakote -Schedule melatonin 3mg HS 10/03/2024: -Continue current medications and tx plan. 10/02/2024: -Taper Depakote to 500mg HS 10/01/24 Continue medication at current doses. Continue disposition planning. 09/30/24: Increase Glycopyrrolate to 2mg bid for hypersalivation. Continue other medication at current doses. 09/29/24: Continue medication regimen. Scheduled for evaluation by the Office of Aging on . 09/28/24: Add Melatonin 3mg qhs. Continue other medication at current doses. 09/27/24: Increase Haldol to 5mg bid Continue other medication at current doses. 09/26/24 Continue medication at current doses. Will review indication for Paxil. Continue orthostatic vital sign monitoring bid (130s-160s/80s today) along with close monitoring given fall risk. 09/25/2024: -Start haldol 2.5mg BID 09/24/2024: -Decrease Paxil to 30mg daily 09/23/2024: -Increase clozapine to 500mg HS 09/22/2024: -Increase Depakote ER to 1000mg HS -Discontinue Ativan HS scheduled, adjust to prn in case contributing to falls -Orthostatic vitals BID -PT consult 09/21/2024: Clozapine level tomorrow AM 09/20/2024: Increase clozapine to 450mg HS. 09/19/2024: Increase Paxil to 30mg BID 09/18/2024: Continue medications and treatment plan 09/17/2024 Discontinue Haloperidol 09/16/2024: Clozapine to 400 mg at bedtime and discontinue a.m. dose 09/15/2024: Increase clozapine to 50 mg in the morning. Increase glycopyrrolate to 1.5 mg twice daily. 09/14/2024: Start Clozapine 25 mg in the morning 09/13/24: Continue medications and treatment plan 09/12/2024: Decrease clozapine to 350 mg at bedtime Start glycopyrrolate 1 mg twice daily Decrease haloperidol to 2.5 mg twice daily 09/11/2024: -Increase clozapine to 400mg HS 09/10/2024: -Increase clozapine to 350mg HS 09/09/2024: -Increase haldol back to 2.5mg TID -Increase ipratropium bromide 0.06% under the tongue to 3 sprays TID for sialorrhea -Increase clozapine to 300mg HS 09/08/2024: -Decrease haldol to 2.5mg HS -Discontinue topiramate 09/07/2024: -Decrease haldol to 2.5mg BID -Increase clozapine to 250mg HS 09/06/2024: -Increase Depakote ER to 500mg -Increase ipratropium bromide 0.06% under the tongue to 2 sprays TID -taper Topiramate to 25mg HS to reduce polypharmacy burden 09/05/2024: The patient was admitted to the [facility] ([facility] unit) on q15 min checks (behavioral with suicide precautions) for safety. The patient will participate in group, recreational, and milieu therapies and will be offered additional individual and family sessions as clinically appropriate. -Continue psychiatric medications: * Clozapine 200mg HS (consider further dose titration) * Topiramate 25mg BID * Haldol 2.5mg TID * Ativan 1mg HS (goal to taper as sleep improves and stabilizes) -Adjust: * Paxil from 30mg BID to 30mg daily -Start: * Depakote ER 250mg HS -Clozapine level, fasting lipid panel, HBA1c tomorrow AM -Repeat EKG given his age and now on multiple medications that can impact QTc interval Inventory Assets Strengths: supportive living environment, cooperative Needs: safety and stabilization, medication adjustment, additional coping skills, increased outpatient services Suicide Risk Level Suicide Risk Level: Moderate (q15 min suicide checks) (denies SI but with periods of hallucinations and delusions which can negatively impacting his mood ) Suicide Risk Level Comments: Risk Factors Assessment Male: Yes : Yes Do You Have Access To A Gun?: No Health Problems: Yes Mental Health Diagnoses: Yes Substance Use Disorders: No Previous Attempt: No Family History of Suicide: No Previous Psychiatric Hospitalization: Yes Hopelessness: No Protective Factors Assessment Buddhism Beliefs: Yes Good Rapport with Provider: Yes Interval History Identifying Information REBA KELLY is a 69-year-old man who currently lives [facility], has a history of schizophrenia, recent subdural hematoma, HTN, Type II diabetes, HLD, BPH and was admitted on 09/04/24 14:12 on a 304 involuntary commitment for psychosis and disorganization. Chief Complaint AMS, psychosis Review of Systems Sleep Information Total Hours of Sleep: 6 Sleep Comments: Incontinent of urine Meal Information Percent Meal Consumed - Breakfast: 75 Percent Meal Consumed - Lunch: 100 Percent Meal Consumed - Dinner: 100 Nutrition Comment: Patient ate some carrots and then states, "I'm not hungry." Subjective Subjective Patient was seen & assessed and interval progress reviewed with treatment team nursing and social work Overnight had a fall, was incontinent x2. Today approaches me and blesses me and other staff in the nurses station. Dysarthric voice. AO to hospital and self. Unable to state year/month. Appears to be more active today, walking around the unit with his walker. Physical Exam Mental Examination Appearance: Disheveled Eye Contact: Maintains Eye Contact Motor Behavior: Slowed and Weakness Speech: Soft and Disorganized Mood: Calm Affect: Blunted Thought Process: Disorganized, Loose Associations and Slowed Thinking Thought Content: Disorganized and Preoccupation Hallucinations: Auditory Insight: Poor Judgement: Poor Vital Signs (Past 24 Hours) Last Vital Signs Temp 36.9 C 10/11/24 22:30 Pulse 100 H 10/11/24 22:30 Resp 16 10/11/24 06:20 BP 116/75 10/11/24 22:30 Pulse Ox 96 10/11/24 22:30 O2 Del Method Room Air 10/11/24 22:30 Results & Data ([facility]) Laboratory Results Laboratory Results - last 24 hr 10/12/24 08:31 POC Glucose 96 Current Inpatient Medications Current Inpatient Medications: Current Inpatient Medications Acetaminophen (Acetaminophen 325 Mg Tab) 650 mg PO Q4H PRN PRN Reason: Headache or Minor Fever Stop: 11/02/24 14:11 Last Admin: 10/04/24 21:24 Dose: 650 mg Al Hydrox/Mg Hydrox/Simethicone (Aluminum/Magnesium Susp 30 Ml Udc) 30 ml PO Q4H PRN PRN Reason: GI Upset Stop: 11/02/24 14:11 Atorvastatin Calcium (Atorvastatin 40 Mg Tab) 40 mg PO HS [facility] Stop: 11/02/24 21:59 Last Admin: 10/11/24 20:52 Dose: 40 mg Bismuth Subsalicylate (Bismuth Subsalicylate 262 Mg Chew) 2 tab PO Q30M PRN PRN Reason: Loose Stool/Diarrhea Stop: 11/02/24 14:11 Clozapine (Clozapine 100 Mg Tab) 500 mg PO HS [facility] Stop: 11/10/24 21:59 Last Admin: 10/11/24 20:50 Dose: 500 mg Cyanocobalamin (Cyanocobalamin (B-12) 100 Mcg Tablet) 100 mcg PO QAM [facility] Stop: 11/02/24 08:59 Last Admin: 10/12/24 09:07 Dose: 100 mcg Docusate Sodium (Docusate Sodium 100 Mg Cap) 100 mg PO BID [facility] Stop: 11/02/24 20:59 Last Admin: 10/12/24 09:17 Dose: Not Given Glycopyrrolate (Glycopyrrolate 1 Mg Tab) 2 mg PO BID [facility] Stop: 10/30/24 20:59 Last Admin: 10/12/24 09:08 Dose: 2 mg Haloperidol (Haloperidol 5 Mg Tab) 5 mg PO BID PRN PRN Reason: psychosis Stop: 11/02/24 09:02 Last Admin: 10/02/24 12:10 Dose: 5 mg Haloperidol (Haloperidol 5 Mg Tab) 5 mg PO BID [facility] Stop: 10/27/24 20:59 Last Admin: 10/12/24 09:11 Dose: 5 mg Haloperidol Lactate (Haloperidol Lactate 5 Mg/Ml 1 Ml Vial) 5 mg IM BID PRN PRN Reason: agitation Stop: 11/02/24 15:34 Hydroxyzine HCl (Hydroxyzine Hcl 25 Mg Tab) 50 mg PO HSZ PRN PRN Reason: Insomnia Stop: 11/02/24 14:11 Last Admin: 09/28/24 01:21 Dose: 50 mg Hydroxyzine HCl (Hydroxyzine Hcl 25 Mg Tab) 25 mg PO Q4H PRN PRN Reason: Anxiety Stop: 11/02/24 14:11 Levothyroxine Sodium (Levothyroxine Sodium 25 Mcg Tablet) 25 mcg PO DAILYBB [facility] Stop: 11/02/24 07:59 Last Admin: 10/12/24 09:07 Dose: 25 mcg Lisinopril (Lisinopril 20 Mg Tab) 20 mg PO DAILY [facility] Stop: 11/02/24 08:59 Last Admin: 10/12/24 09:08 Dose: 20 mg Lorazepam (Lorazepam 2 Mg/1 Ml Vial) 1 mg IM BID PRN PRN Reason: Agitation Stop: 11/02/24 15:34 Lorazepam (Lorazepam 1 Mg Tab) 1 mg PO DAILY PRN PRN Reason: restlessness Stop: 11/02/24 02:10 Last Admin: 09/25/24 07:46 Dose: 1 mg Lorazepam (Lorazepam 1 Mg Tab) 1 mg PO HS PRN PRN Reason: insomnia Stop: 11/02/24 16:13 Magnesium Hydroxide (Magnesium Hydroxide Susp 30 Ml Udc) 30 ml PO DAILY PRN PRN Reason: Constipation Stop: 11/02/24 14:11 Last Admin: 10/02/24 21:05 Dose: 30 ml Melatonin (Melatonin 3 Mg Tab) 3 mg PO HS [facility] Stop: 11/03/24 21:59 Last Admin: 10/11/24 20:52 Dose: 3 mg Meloxicam (Meloxicam 7.5 Mg Tab) 15 mg PO DAILY [facility] Stop: 11/02/24 08:59 Last Admin: 10/12/24 09:09 Dose: 15 mg Memantine (Memantine Hcl 5 Mg Tab) 5 mg PO QAM [facility] Stop: 11/11/24 08:59 Last Admin: 10/12/24 09:09 Dose: 5 mg Metformin HCl (Metformin Hcl 500 Mg Tab) 1,000 mg PO BID17 [facility] Stop: 11/02/24 16:59 Last Admin: 10/12/24 09:09 Dose: 1,000 mg Miscellaneous (Remove Nicoderm Patch) 1 each N/A 2100 [facility] Stop: 11/02/24 20:59 Last Admin: 10/11/24 21:02 Dose: 1 each Multivitamins (Multivitamin Tab) 1 tab PO DAILY [facility] Stop: 11/02/24 08:59 Last Admin: 10/12/24 09:09 Dose: 1 tab Nicotine (Nicotine 21 Mg/24 Hr Tdsy) 1 patch TD QAM [facility] Stop: 11/02/24 09:44 Last Admin: 10/12/24 09:14 Dose: 1 patch Nicotine Polacrilex (Nicotine Polacrilex 2 Mg Gum) 1 piece MT Q2H PRN PRN Reason: smoking cessation Stop: 11/02/24 15:22 Last Admin: 09/29/24 10:35 Dose: 1 piece Paroxetine HCl (Paroxetine Hcl 10 Mg Tab) 30 mg PO DAILY [facility] Stop: 10/25/24 08:59 Last Admin: 10/12/24 09:09 Dose: 30 mg Phenylephrine HCl (Phenylephrine 0.25% Supp 1 Ea) 1 supp AR DAILY PRN PRN Reason: Hemorrhoids Stop: 11/04/24 15:02 Polyethylene Glycol (Polyethylene (Miralax) 17 Gm Pack) 17 gm PO DAILY [facility] Stop: 11/02/24 08:59 Last Admin: 10/12/24 09:17 Dose: Not Given Sennosides (Senna 8.6 Mg Tab) 8.6 mg PO Q2D PRN PRN Reason: constipation Stop: 11/02/24 15:30 Sodium Chloride (Sodium Chloride 0.65% Na Soln 45 Ml ([place])) 1 - 2 sprays NA PRN PRN PRN Reason: Nasal Dryness/Congestion Stop: 11/02/24 14:11 Vitamin D (Cholecalciferol 25 Mcg (1000 Units) Tab) 50 mcg PO QAM [facility] Stop: 11/02/24 08:59 Last Admin: 10/12/24 09:07 Dose: 50 mcg Mental Health & Subst Abuse Tx Psychiatrist Name of Psychiatrist: Haley Mazariegos (on maternity leave) will be seen by Dr. Juarez at [facility] Psychiatrist's Date Of Appointment With Psychiatric Provider: 09/27/24 Time of Appointment with Psychiatrist: 1:45PM Psychiatric Appointment Comment: [address] [place], [place] [id number] [employer] Name of [employer] Structural [employer]der: [facility] counseling case manager Phone Number for [employer]: [phone] Post Discharge Appointments Primary Care Physician Name Of Family Doctor/PCP: Dr. Deonte Martinez - [address] [place] [address] Primary Care Date of Future Appointment with PCP: 09/28/24 Time of Appointment with PCP: 8AM Provider Appointment Comment: Arrive @ 745AM, will be seen by ROSE Espinal. Check in via [employer]. Contact Information Discharge Discharge Address: [address] [place] [address] (1) Psychosis Psychosis type: schizophrenia Schizophrenia type: paranoid schizophrenia Qualified Code(s): F20.0 - Paranoid schizophrenia
--- NOTE | 2024-10-13 14:49 | Psychiatric Progress Note ---
Date of Service October 13, 2024 Impression / Recommendations Impression REBA KELLY is a 69-year-old man who currently lives [facility], has a history of schizophrenia, recent subdural hematoma, HTN, Type II diabetes, HLD, BPH and was admitted on 09/04/24 14:12 on a 303 involuntary commitment for psychosis and disorganization and now on a 304 commitment granted on 09/23/2024. Diagnosis: Schizophrenia vs Schizoaffective Disorder Bipolar Type. s/p TBI with subdural hematoma (resolved) with low suspicion for confusion at this time. Pt had been stable on clozapine for many years but seems to have decompensated in the setting of his recent fall. A: Appears less sedated and out of his room during the day. More interactive. Concern for on-going psychosis. Behaviors have been appropriate. No recent incontinence or falls. Memantine trial to address behavioral dyscontrol, persistent confusion/disorientation. Dysarthric and has difficulty engage in the clinical interview. Clozapine level pending. 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 MNPR due to previous disrobing, psychosis, disorganization and need to be able to use bedside urinal Overall, I spent a total of 45 minutes on this case including meeting with the patient, reviewing the chart, nursing report, orders, evidence base review and documentation. (1) Psychosis: (2) Schizophrenia: (3) Auditory hallucinations: (4) Sialorrhea: (5) Hypersexuality: (6) Hyperlipidemia: (7) Type 2 diabetes mellitus: (8) Hypertension: (9) Insomnia: Plan 10/13/24: Continue medications and treatment plan 10/12/24: Miralax Q2D dosing 10/11/24: Start Memantine 5mg daily 10/10/2024: Continue medications and treatment plan 10/09/2024: Decrease clozapine to 500mg HS Repeat clozapine level 10/08/2024: Continue medications and treatment plan 10/07/2024: -Continue current medications and tx plan 10/06/2024: -Continue current medications and tx plan 10/05/2024: -Increase clozapine to 600mg HS 10/04/2024: -Discontinue Depakote -Schedule melatonin 3mg HS 10/03/2024: -Continue current medications and tx plan. 10/02/2024: -Taper Depakote to 500mg HS 10/01/24 Continue medication at current doses. Continue disposition planning. 09/30/24: Increase Glycopyrrolate to 2mg bid for hypersalivation. Continue other medication at current doses. 09/29/24: Continue medication regimen. Scheduled for evaluation by the Office of Aging on . 09/28/24: Add Melatonin 3mg qhs. Continue other medication at current doses. 09/27/24: Increase Haldol to 5mg bid Continue other medication at current doses. 09/26/24 Continue medication at current doses. Will review indication for Paxil. Continue orthostatic vital sign monitoring bid (130s-160s/80s today) along with close monitoring given fall risk. 09/25/2024: -Start haldol 2.5mg BID 09/24/2024: -Decrease Paxil to 30mg daily 09/23/2024: -Increase clozapine to 500mg HS 09/22/2024: -Increase Depakote ER to 1000mg HS -Discontinue Ativan HS scheduled, adjust to prn in case contributing to falls -Orthostatic vitals BID -PT consult 09/21/2024: Clozapine level tomorrow AM 09/20/2024: Increase clozapine to 450mg HS. 09/19/2024: Increase Paxil to 30mg BID 09/18/2024: Continue medications and treatment plan 09/17/2024 Discontinue Haloperidol 09/16/2024: Clozapine to 400 mg at bedtime and discontinue a.m. dose 09/15/2024: Increase clozapine to 50 mg in the morning. Increase glycopyrrolate to 1.5 mg twice daily. 09/14/2024: Start Clozapine 25 mg in the morning 09/13/24: Continue medications and treatment plan 09/12/2024: Decrease clozapine to 350 mg at bedtime Start glycopyrrolate 1 mg twice daily Decrease haloperidol to 2.5 mg twice daily 09/11/2024: -Increase clozapine to 400mg HS 09/10/2024: -Increase clozapine to 350mg HS 09/09/2024: -Increase haldol back to 2.5mg TID -Increase ipratropium bromide 0.06% under the tongue to 3 sprays TID for sialorrhea -Increase clozapine to 300mg HS 09/08/2024: -Decrease haldol to 2.5mg HS -Discontinue topiramate 09/07/2024: -Decrease haldol to 2.5mg BID -Increase clozapine to 250mg HS 09/06/2024: -Increase Depakote ER to 500mg -Increase ipratropium bromide 0.06% under the tongue to 2 sprays TID -taper Topiramate to 25mg HS to reduce polypharmacy burden 09/05/2024: The patient was admitted to the [facility] ([facility]) on q15 min checks (behavioral with suicide precautions) for safety. The patient will participate in group, recreational, and milieu therapies and will be offered additional individual and family sessions as clinically appropriate. -Continue psychiatric medications: * Clozapine 200mg HS (consider further dose titration) * Topiramate 25mg BID * Haldol 2.5mg TID * Ativan 1mg HS (goal to taper as sleep improves and stabilizes) -Adjust: * Paxil from 30mg BID to 30mg daily -Start: * Depakote ER 250mg HS -Clozapine level, fasting lipid panel, HBA1c tomorrow AM -Repeat EKG given his age and now on multiple medications that can impact QTc interval Inventory Assets Strengths: supportive living environment, cooperative Needs: safety and stabilization, medication adjustment, additional coping skills, increased outpatient services Suicide Risk Level Suicide Risk Level: Moderate (q15 min suicide checks) (denies SI but with periods of hallucinations and delusions which can negatively impacting his mood ) Suicide Risk Level Comments: Risk Factors Assessment Male: Yes : Yes Do You Have Access To A Gun?: No Health Problems: Yes Mental Health Diagnoses: Yes Substance Use Disorders: No Previous Attempt: No Family History of Suicide: No Previous Psychiatric Hospitalization: Yes Hopelessness: No Protective Factors Assessment Mandaeism Beliefs: Yes Good Rapport with Provider: Yes Interval History Identifying Information REBA KELLY is a 69-year-old man who currently lives [facility], has a history of schizophrenia, recent subdural hematoma, HTN, Type II diabetes, HLD, BPH and was admitted on 09/04/24 14:12 on a 304 involuntary commitment for psychosis and disorganization. Chief Complaint Psychosis, AMS Review of Systems Sleep Information Total Hours of Sleep: 6.25 Sleep Comments: Incontinent of urine Meal Information Percent Meal Consumed - Breakfast: 75 Percent Meal Consumed - Lunch: 100 Percent Meal Consumed - Dinner: 50 Nutrition Comment: Patient ate some carrots and then states, "I'm not hungry." Subjective Subjective Patient was seen & assessed and interval progress reviewed with treatment team nursing and social work Slept 6.5 hours. Dysarthric and difficult to comprehend. Often seen talking to self and laughing. Asked yes/no questions and answered appropriately. Agreeable with longterm placement. Denies pain. Denies constipation. C/o on-going hypersalivation. Identified brother's name. Agreeable for brother to be POA. Explained what POA's function is. Reports voices not bothering him today. Physical Exam Mental Examination Appearance: Disheveled Eye Contact: Maintains Eye Contact Motor Behavior: Slowed and Weakness Speech: Soft and Disorganized Mood: Calm Affect: Blunted Thought Process: Disorganized, Loose Associations and Slowed Thinking Thought Content: Disorganized and Preoccupation Hallucinations: Auditory Insight: Poor Judgement: Poor Vital Signs (Past 24 Hours) Last Vital Signs Temp 36.9 C 10/11/24 22:30 Pulse 92 H 10/13/24 11:32 Resp 16 10/13/24 11:32 BP 123/77 10/13/24 11:32 Pulse Ox 96 10/11/24 22:30 O2 Del Method Room Air 10/11/24 22:30 Results & Data ([facility]) Laboratory Results Laboratory Results - last 24 hr 10/13/24 07:03 POC Glucose 103 H Current Inpatient Medications Current Inpatient Medications: Current Inpatient Medications Acetaminophen (Acetaminophen 325 Mg Tab) 650 mg PO Q4H PRN PRN Reason: Headache or Minor Fever Stop: 11/02/24 14:11 Last Admin: 10/04/24 21:24 Dose: 650 mg Al Hydrox/Mg Hydrox/Simethicone (Aluminum/Magnesium Susp 30 Ml Udc) 30 ml PO Q4H PRN PRN Reason: GI Upset Stop: 11/02/24 14:11 Atorvastatin Calcium (Atorvastatin 40 Mg Tab) 40 mg PO HS [facility] Stop: 11/02/24 21:59 Last Admin: 10/12/24 20:38 Dose: 40 mg Bismuth Subsalicylate (Bismuth Subsalicylate 262 Mg Chew) 2 tab PO Q30M PRN PRN Reason: Loose Stool/Diarrhea Stop: 11/02/24 14:11 Clozapine (Clozapine 100 Mg Tab) 500 mg PO HS [facility] Stop: 11/10/24 21:59 Last Admin: 10/12/24 20:38 Dose: 500 mg Cyanocobalamin (Cyanocobalamin (B-12) 100 Mcg Tablet) 100 mcg PO QAM [facility] Stop: 11/02/24 08:59 Last Admin: 10/13/24 08:33 Dose: 100 mcg Docusate Sodium (Docusate Sodium 100 Mg Cap) 100 mg PO BID [facility] Stop: 11/02/24 20:59 Last Admin: 10/13/24 08:34 Dose: 100 mg Glycopyrrolate (Glycopyrrolate 1 Mg Tab) 2 mg PO BID [facility] Stop: 10/30/24 20:59 Last Admin: 10/13/24 08:34 Dose: 2 mg Haloperidol (Haloperidol 5 Mg Tab) 5 mg PO BID PRN PRN Reason: psychosis Stop: 11/02/24 09:02 Last Admin: 10/02/24 12:10 Dose: 5 mg Haloperidol (Haloperidol 5 Mg Tab) 5 mg PO BID [facility] Stop: 10/27/24 20:59 Last Admin: 10/13/24 08:35 Dose: 5 mg Haloperidol Lactate (Haloperidol Lactate 5 Mg/Ml 1 Ml Vial) 5 mg IM BID PRN PRN Reason: agitation Stop: 11/02/24 15:34 Hydroxyzine HCl (Hydroxyzine Hcl 25 Mg Tab) 50 mg PO HSZ PRN PRN Reason: Insomnia Stop: 11/02/24 14:11 Last Admin: 09/28/24 01:21 Dose: 50 mg Hydroxyzine HCl (Hydroxyzine Hcl 25 Mg Tab) 25 mg PO Q4H PRN PRN Reason: Anxiety Stop: 11/02/24 14:11 Levothyroxine Sodium (Levothyroxine Sodium 25 Mcg Tablet) 25 mcg PO DAILYBB [facility] Stop: 11/02/24 07:59 Last Admin: 10/13/24 08:32 Dose: 25 mcg Lisinopril (Lisinopril 20 Mg Tab) 20 mg PO DAILY [facility] Stop: 11/02/24 08:59 Last Admin: 10/13/24 08:34 Dose: 20 mg Lorazepam (Lorazepam 2 Mg/1 Ml Vial) 1 mg IM BID PRN PRN Reason: Agitation Stop: 11/02/24 15:34 Lorazepam (Lorazepam 1 Mg Tab) 1 mg PO DAILY PRN PRN Reason: restlessness Stop: 11/02/24 02:10 Last Admin: 09/25/24 07:46 Dose: 1 mg Lorazepam (Lorazepam 1 Mg Tab) 1 mg PO HS PRN PRN Reason: insomnia Stop: 11/02/24 16:13 Magnesium Hydroxide (Magnesium Hydroxide Susp 30 Ml Udc) 30 ml PO DAILY PRN PRN Reason: Constipation Stop: 11/02/24 14:11 Last Admin: 10/02/24 21:05 Dose: 30 ml Melatonin (Melatonin 3 Mg Tab) 3 mg PO HS [facility] Stop: 11/03/24 21:59 Last Admin: 10/12/24 20:39 Dose: 3 mg Meloxicam (Meloxicam 7.5 Mg Tab) 15 mg PO DAILY [facility] Stop: 11/02/24 08:59 Last Admin: 10/13/24 08:36 Dose: 15 mg Memantine (Memantine Hcl 5 Mg Tab) 5 mg PO QAM [facility] Stop: 11/11/24 08:59 Last Admin: 10/13/24 08:36 Dose: 5 mg Metformin HCl (Metformin Hcl 500 Mg Tab) 1,000 mg PO BID17 [facility] Stop: 11/02/24 16:59 Last Admin: 10/13/24 08:38 Dose: 1,000 mg Miscellaneous (Remove Nicoderm Patch) 1 each N/A 2100 [facility] Stop: 11/02/24 20:59 Last Admin: 10/12/24 20:52 Dose: 1 each Multivitamins (Multivitamin Tab) 1 tab PO DAILY [facility] Stop: 11/02/24 08:59 Last Admin: 10/13/24 08:38 Dose: 1 tab Nicotine (Nicotine 21 Mg/24 Hr Tdsy) 1 patch TD QAM [facility] Stop: 11/02/24 09:44 Last Admin: 10/13/24 11:19 Dose: 1 patch Nicotine Polacrilex (Nicotine Polacrilex 2 Mg Gum) 1 piece MT Q2H PRN PRN Reason: smoking cessation Stop: 11/02/24 15:22 Last Admin: 09/29/24 10:35 Dose: 1 piece Paroxetine HCl (Paroxetine Hcl 10 Mg Tab) 30 mg PO DAILY [facility] Stop: 10/25/24 08:59 Last Admin: 10/13/24 08:37 Dose: 30 mg Phenylephrine HCl (Phenylephrine 0.25% Supp 1 Ea) 1 supp MI DAILY PRN PRN Reason: Hemorrhoids Stop: 11/04/24 15:02 Polyethylene Glycol (Polyethylene (Miralax) 17 Gm Pack) 17 gm PO Q48H [facility] Stop: 11/13/24 08:59 Sennosides (Senna 8.6 Mg Tab) 8.6 mg PO Q2D PRN PRN Reason: constipation Stop: 11/02/24 15:30 Sodium Chloride (Sodium Chloride 0.65% Na Soln 45 Ml ([place])) 1 - 2 sprays NA PRN PRN PRN Reason: Nasal Dryness/Congestion Stop: 11/02/24 14:11 Vitamin D (Cholecalciferol 25 Mcg (1000 Units) Tab) 50 mcg PO QAM [facility] Stop: 11/02/24 08:59 Last Admin: 10/13/24 08:33 Dose: 50 mcg Mental Health & Subst Abuse Tx Psychiatrist Name of Psychiatrist: Haley Mazariegos (on maternity leave) will be seen by Dr. Juarez at [facility] Psychiatrist's Date Of Appointment With Psychiatric Provider: 09/27/24 Time of Appointment with Psychiatrist: 1:45PM Psychiatric Appointment Comment: [address] [place] [address] [place]SE [id number] Package Handler Name of Package Handler: [facility] case consultant Phone Number for Package Handler: [phone] Post Discharge Appointments Primary Care Physician Name Of Family Doctor/PCP: Dr. Deonte Martinez - [address] [place] [address] Primary Care Date of Future Appointment with PCP: 09/28/24 Time of Appointment with PCP: 8AM Provider Appointment Comment: Arrive @ 745AM, will be seen by ROSE Espinal. Check in via [employer]. Bring meds. Contact Information Discharge Discharge Address: [address] [place] [address] [place] [address] (1) Psychosis Psychosis type: schizophrenia Schizophrenia type: paranoid schizophrenia Qualified Code(s): F20.0 - Paranoid schizophrenia
[2024-10-14] MEDS: POLYETHYLENE (MIRALAX) 17 GM PACK PO SCH (09:03)
--- NOTE | 2024-10-14 13:05 | Psychiatric Progress Note ---
Date of Service October 14, 2024 Impression / Recommendations Impression REBA KELLY is a 69-year-old man who currently lives [facility], has a history of schizophrenia, recent subdural hematoma, HTN, Type II diabetes, HLD, BPH and was admitted on 09/04/24 14:12 on a 303 involuntary commitment for psychosis and disorganization and now on a 304 commitment granted on 09/23/2024. Diagnosis: Schizophrenia vs Schizoaffective Disorder Bipolar Type. s/p TBI with subdural hematoma (resolved) with low suspicion for confusion at this time. Pt had been stable on clozapine for many years but seems to have decompensated in the setting of his recent fall. A: Appears less sedated and out of his room during the day. More interactive. Concern for on-going psychosis. Some inappropriate behaviors overnight and required redirection. No overnight incontinence or falls. Memantine trial to address behavioral dyscontrol, persistent confusion/disorientation. Dysarthric and has difficulty engage in the clinical interview. Clozapine level pending. Working with SW towards termination clerk housing placement - niece agreed to be his POA and awaiting completion of paperwork. Concern for AM sedation and will dose clozapine earlier in the evening. Plan to optimize memantine today. Will trial lower dose of glycopyrolate and assess for improvement in speech as clozapine can cause both sialorrhea and xerostomia. MNPR due to previous disrobing, psychosis, disorganization and need to be able to use bedside urinal Overall, I spent a total of 45 minutes on this case including meeting with the patient, reviewing the chart, nursing report, orders, evidence base review and documentation. (1) Psychosis: (2) Schizophrenia: (3) Auditory hallucinations: (4) Sialorrhea: (5) Hypersexuality: (6) Hyperlipidemia: (7) Type 2 diabetes mellitus: (8) Hypertension: (9) Insomnia: Plan 10/14/24: Clozapine 500mg to QPM dosing Increase Memantine to 10mg daily Decrease glycopyrolate to 1mg BID Increase colace to 200mg BID 10/13/24: Continue medications and treatment plan 10/12/24: Miralax Q2D dosing 10/11/24: Start Memantine 5mg daily 10/10/2024: Continue medications and treatment plan 10/09/2024: Decrease clozapine to 500mg HS Repeat clozapine level 10/08/2024: Continue medications and treatment plan 10/07/2024: -Continue current medications and tx plan 10/06/2024: -Continue current medications and tx plan 10/05/2024: -Increase clozapine to 600mg HS 10/04/2024: -Discontinue Depakote -Schedule melatonin 3mg HS 10/03/2024: -Continue current medications and tx plan. 10/02/2024: -Taper Depakote to 500mg HS 10/01/24 Continue medication at current doses. Continue disposition planning. 09/30/24: Increase Glycopyrrolate to 2mg bid for hypersalivation. Continue other medication at current doses. 09/29/24: Continue medication regimen. Scheduled for evaluation by the Office of Aging on . 09/28/24: Add Melatonin 3mg qhs. Continue other medication at current doses. 09/27/24: Increase Haldol to 5mg bid Continue other medication at current doses. 09/26/24 Continue medication at current doses. Will review indication for Paxil. Continue orthostatic vital sign monitoring bid (130s-160s/80s today) along with close monitoring given fall risk. 09/25/2024: -Start haldol 2.5mg BID 09/24/2024: -Decrease Paxil to 30mg daily 09/23/2024: -Increase clozapine to 500mg HS 09/22/2024: -Increase Depakote ER to 1000mg HS -Discontinue Ativan HS scheduled, adjust to prn in case contributing to falls -Orthostatic vitals BID -PT consult 09/21/2024: Clozapine level tomorrow AM 09/20/2024: Increase clozapine to 450mg HS. 09/19/2024: Increase Paxil to 30mg BID 09/18/2024: Continue medications and treatment plan 09/17/2024 Discontinue Haloperidol 09/16/2024: Clozapine to 400 mg at bedtime and discontinue a.m. dose 09/15/2024: Increase clozapine to 50 mg in the morning. Increase glycopyrrolate to 1.5 mg twice daily. 09/14/2024: Start Clozapine 25 mg in the morning 09/13/24: Continue medications and treatment plan 09/12/2024: Decrease clozapine to 350 mg at bedtime Start glycopyrrolate 1 mg twice daily Decrease haloperidol to 2.5 mg twice daily 09/11/2024: -Increase clozapine to 400mg HS 09/10/2024: -Increase clozapine to 350mg HS 09/09/2024: -Increase haldol back to 2.5mg TID -Increase ipratropium bromide 0.06% under the tongue to 3 sprays TID for sialorrhea -Increase clozapine to 300mg HS 09/08/2024: -Decrease haldol to 2.5mg HS -Discontinue topiramate 09/07/2024: -Decrease haldol to 2.5mg BID -Increase clozapine to 250mg HS 09/06/2024: -Increase Depakote ER to 500mg -Increase ipratropium bromide 0.06% under the tongue to 2 sprays TID -taper Topiramate to 25mg HS to reduce polypharmacy burden 09/05/2024: The patient was admitted to the [facility] ([facility]) on q15 min checks (behavioral with suicide precautions) for safety. The patient will participate in group, recreational, and milieu therapies and will be offered additional individual and family sessions as clinically appropriate. -Continue psychiatric medications: * Clozapine 200mg HS (consider further dose titration) * Topiramate 25mg BID * Haldol 2.5mg TID * Ativan 1mg HS (goal to taper as sleep improves and stabilizes) -Adjust: * Paxil from 30mg BID to 30mg daily -Start: * Depakote ER 250mg HS -Clozapine level, fasting lipid panel, HBA1c tomorrow AM -Repeat EKG given his age and now on multiple medications that can impact QTc interval Inventory Assets Strengths: supportive living environment, cooperative Needs: safety and stabilization, medication adjustment, additional coping skills, increased outpatient services Suicide Risk Level Suicide Risk Level: Moderate (q15 min suicide checks) (denies SI but with periods of hallucinations and delusions which can negatively impacting his mood ) Suicide Risk Level Comments: Risk Factors Assessment Male: Yes : Yes Do You Have Access To A Gun?: No Health Problems: Yes Mental Health Diagnoses: Yes Substance Use Disorders: No Previous Attempt: No Family History of Suicide: No Previous Psychiatric Hospitalization: Yes Hopelessness: No Protective Factors Assessment [employer] Beliefs: Yes Good Rapport with Provider: Yes Interval History Identifying Information REBA KELLY is a 69-year-old man who currently lives [facility], has a history of schizophrenia, recent subdural hematoma, HTN, Type II diabetes, HLD, BPH and was admitted on 09/04/24 14:12 on a 304 involuntary commitment for psychosis and disorganization. Chief Complaint Psychosis, AMS Review of Systems Sleep Information Total Hours of Sleep: 6 Sleep Comments: Incontinent of urine Meal Information Percent Meal Consumed - Breakfast: 90 Percent Meal Consumed - Lunch: 100 Percent Meal Consumed - Dinner: 50 Nutrition Comment: Patient ate some carrots and then states, "I'm not hungry." Subjective Subjective Patient was seen & assessed and interval progress reviewed with treatment team nursing and social work Overnight slept 6 hours. niece has agreed to be his POA. Seen responding to internal stimuli by nursing. On interview patient is alert and oriented to himself, location, current president. Dysarthric speech. He confirms having excess drooling. carries a sock with him however does not appear to be especially drenched. During the conversation his eyes gaze over and is fixated, concern for him responding to internal stimuli. Denies feeling constipated. Was explained to him who his brother's daughter was and what a POA involves. He was in agreement to having's niece be the POA. In the middle of the conversation gets up and walks away. Physical Exam Mental Examination Appearance: Disheveled Eye Contact: Maintains Eye Contact Motor Behavior: Slowed and Weakness Speech: Soft and Disorganized Mood: Calm Affect: Blunted Thought Process: Disorganized, Loose Associations and Slowed Thinking Thought Content: Disorganized and Preoccupation Hallucinations: Auditory Insight: Poor Judgement: Poor Vital Signs (Past 24 Hours) Last Vital Signs Temp 36.6 C 10/14/24 06:11 Pulse 67 10/14/24 06:11 Resp 16 10/14/24 06:11 BP 129/77 10/14/24 06:11 Pulse Ox 97 10/13/24 20:42 O2 Del Method Room Air 10/13/24 20:42 Results & Data ([facility]) Laboratory Results Laboratory Results - last 24 hr 10/14/24 08:51 POC Glucose 96 Current Inpatient Medications Current Inpatient Medications: Current Inpatient Medications Acetaminophen (Acetaminophen 325 Mg Tab) 650 mg PO Q4H PRN PRN Reason: Headache or Minor Fever Stop: 11/02/24 14:11 Last Admin: 10/04/24 21:24 Dose: 650 mg Al Hydrox/Mg Hydrox/Simethicone (Aluminum/Magnesium Susp 30 Ml Udc) 30 ml PO Q4H PRN PRN Reason: GI Upset Stop: 11/02/24 14:11 Atorvastatin Calcium (Atorvastatin 40 Mg Tab) 40 mg PO HS BEATRICE Stop: 11/02/24 21:59 Last Admin: 10/13/24 20:32 Dose: 40 mg Bismuth Subsalicylate (Bismuth Subsalicylate 262 Mg Chew) 2 tab PO Q30M PRN PRN Reason: Loose Stool/Diarrhea Stop: 11/02/24 14:11 Clozapine (Clozapine 100 Mg Tab) 500 mg PO QPM BEATRICE Stop: 11/13/24 20:59 Cyanocobalamin (Cyanocobalamin (B-12) 100 Mcg Tablet) 100 mcg PO QAM BEATRICE Stop: 11/02/24 08:59 Last Admin: 10/14/24 09:03 Dose: 100 mcg Haloperidol (Haloperidol 5 Mg Tab) 5 mg PO BID PRN PRN Reason: psychosis Stop: 11/02/24 09:02 Last Admin: 10/02/24 12:10 Dose: 5 mg Haloperidol (Haloperidol 5 Mg Tab) 5 mg PO BID BEATRICE Stop: 10/27/24 20:59 Last Admin: 10/14/24 09:03 Dose: 5 mg Haloperidol Lactate (Haloperidol Lactate 5 Mg/Ml 1 Ml Vial) 5 mg IM BID PRN PRN Reason: agitation Stop: 11/02/24 15:34 Hydroxyzine HCl (Hydroxyzine Hcl 25 Mg Tab) 50 mg PO HSZ PRN PRN Reason: Insomnia Stop: 11/02/24 14:11 Last Admin: 09/28/24 01:21 Dose: 50 mg Hydroxyzine HCl (Hydroxyzine Hcl 25 Mg Tab) 25 mg PO Q4H PRN PRN Reason: Anxiety Stop: 11/02/24 14:11 Levothyroxine Sodium (Levothyroxine Sodium 25 Mcg Tablet) 25 mcg PO DAILYBB BEATRICE Stop: 11/02/24 07:59 Last Admin: 10/14/24 09:01 Dose: 25 mcg Lisinopril (Lisinopril 20 Mg Tab) 20 mg PO DAILY BEATRICE Stop: 11/02/24 08:59 Last Admin: 10/14/24 09:02 Dose: 20 mg Lorazepam (Lorazepam 2 Mg/1 Ml Vial) 1 mg IM BID PRN PRN Reason: Agitation Stop: 11/02/24 15:34 Lorazepam (Lorazepam 1 Mg Tab) 1 mg PO DAILY PRN PRN Reason: restlessness Stop: 11/02/24 02:10 Last Admin: 09/25/24 07:46 Dose: 1 mg Lorazepam (Lorazepam 1 Mg Tab) 1 mg PO HS PRN PRN Reason: insomnia Stop: 11/02/24 16:13 Magnesium Hydroxide (Magnesium Hydroxide Susp 30 Ml Udc) 30 ml PO DAILY PRN PRN Reason: Constipation Stop: 11/02/24 14:11 Last Admin: 10/02/24 21:05 Dose: 30 ml Melatonin (Melatonin 3 Mg Tab) 3 mg PO HS BEATRICE Stop: 11/03/24 21:59 Last Admin: 10/13/24 20:32 Dose: 3 mg Meloxicam (Meloxicam 7.5 Mg Tab) 15 mg PO DAILY BEATRICE Stop: 11/02/24 08:59 Last Admin: 10/14/24 09:02 Dose: 15 mg Metformin HCl (Metformin Hcl 500 Mg Tab) 1,000 mg PO BID17 [facility] Stop: 11/02/24 16:59 Last Admin: 10/14/24 09:02 Dose: 1,000 mg Miscellaneous (Remove Nicoderm Patch) 1 each N/A 2100 BEATRICE Stop: 11/02/24 20:59 Last Admin: 10/13/24 20:39 Dose: 1 each Multivitamins (Multivitamin Tab) 1 tab PO DAILY BEATRICE Stop: 11/02/24 08:59 Last Admin: 10/14/24 09:02 Dose: 1 tab Nicotine (Nicotine 21 Mg/24 Hr Tdsy) 1 patch TD QAM BEATRICE Stop: 11/02/24 09:44 Last Admin: 10/14/24 09:08 Dose: 1 patch Nicotine Polacrilex (Nicotine Polacrilex 2 Mg Gum) 1 piece MT Q2H PRN PRN Reason: smoking cessation Stop: 11/02/24 15:22 Last Admin: 09/29/24 10:35 Dose: 1 piece Paroxetine HCl (Paroxetine Hcl 10 Mg Tab) 30 mg PO DAILY BEATRICE Stop: 10/25/24 08:59 Last Admin: 10/14/24 09:02 Dose: 30 mg Phenylephrine HCl (Phenylephrine 0.25% Supp 1 Ea) 1 supp MN DAILY PRN PRN Reason: Hemorrhoids Stop: 11/04/24 15:02 Polyethylene Glycol (Polyethylene (Miralax) 17 Gm Pack) 17 gm PO Q48H BEATRICE Stop: 11/13/24 08:59 Last Admin: 10/14/24 09:03 Dose: 17 gm Sennosides (Senna 8.6 Mg Tab) 8.6 mg PO Q2D PRN PRN Reason: constipation Stop: 11/02/24 15:30 Sodium Chloride (Sodium Chloride 0.65% Na Soln 45 Ml ([place])) 1 - 2 sprays NA PRN PRN PRN Reason: Nasal Dryness/Congestion Stop: 11/02/24 14:11 Vitamin D (Cholecalciferol 25 Mcg (1000 Units) Tab) 50 mcg PO QAM BEATRICE Stop: 11/02/24 08:59 Last Admin: 10/14/24 09:03 Dose: 50 mcg Mental Health & Subst Abuse Tx Psychiatrist Name of Psychiatrist: Haley Mazariegos (on maternity leave) will be seen by Dr. Juarez at [facility] Psychiatrist's Date Of Appointment With Psychiatric Provider: 09/27/24 Time of Appointment with Psychiatrist: 1:45PM Psychiatric Appointment Comment: [address] [place] [id number] Pressure Supervisor Name of Pressure Supervisor: Evelyn [facility] unit case management associate Phone Number for Pressure Supervisor: [phone] Post Discharge Appointments Primary Care Physician Name Of Family Doctor/PCP: Dr. Deonte Martinez - [address] [place] [address] Primary Care Date of Future Appointment with PCP: 09/28/24 Time of Appointment with PCP: 8AM Provider Appointment Comment: Arrive @ 745AM, will be seen by ROSE Espinal. Check in via [employer]. Contact Information Discharge Discharge Address: [address] [place], [place] [id number] (1) Psychosis Psychosis type: schizophrenia Schizophrenia type: paranoid schizophrenia Qualified Code(s): F20.0 - Paranoid schizophrenia
[2024-10-14] MEDS: GLYCOPYRROLATE 1 MG TAB PO SCH (20:10)
[2024-10-14] MEDS: DOCUSATE SODIUM 100 MG CAP PO SCH (20:10)
[2024-10-15] MEDS: MEMANTINE HCL 10 MG TAB PO SCH (07:47)
[2024-10-15] MEDS: NICOTINE 14 MG/24 HR PATCH TD SCH (09:33)
[2024-10-15] MEDS: REMOVE NICODERM PATCH SCH (09:33)
--- NOTE | 2024-10-15 18:10 | Psychiatric Progress Note ---
Date of Service October 15, 2024 Impression / Recommendations Impression REBA KELLY is a 69-year-old man who currently lives [facility], has a history of schizophrenia, recent subdural hematoma, HTN, Type II diabetes, HLD, BPH and was admitted on 09/04/24 14:12 on a 303 involuntary commitment for psychosis and disorganization and now on a 304 commitment granted on 09/23/2024. Diagnosis: Schizophrenia vs Schizoaffective Disorder Bipolar Type. s/p TBI with subdural hematoma (resolved) with low suspicion for confusion at this time. Pt had been stable on clozapine for many years but seems to have decompensated in the setting of his recent fall. A: Pt has been out of his room and more interactive. Concern for on-going psychosis. Requires redirection at times. No overnight incontinence or falls.Memantine trial to address behavioral dyscontrol, persistent confusion/disorientation. Slightly less dysarthric today. Clozapine level pending. Working with SW towards correction housing placement - niece agreed to be his POA and awaiting completion of paperwork. MNPR due to previous disrobing, psychosis, disorganization and need to be able to use bedside urinal Overall, I spent a total of 35 minutes on this case including meeting with the patient, reviewing the chart, nursing report, orders, evidence base review and documentation. (1) Psychosis: (2) Schizophrenia: (3) Auditory hallucinations: (4) Sialorrhea: (5) Hypersexuality: (6) Hyperlipidemia: (7) Type 2 diabetes mellitus: (8) Hypertension: (9) Insomnia: Plan 10/15/24: Continue medications and treatment plan 10/14/24: Clozapine 500mg to QPM dosing Increase Memantine to 10mg daily Decrease glycopyrolate to 1mg BID Increase colace to 200mg BID 10/13/24: Continue medications and treatment plan 10/12/24: Miralax Q2D dosing 10/11/24: Start Memantine 5mg daily 10/10/2024: Continue medications and treatment plan 10/09/2024: Decrease clozapine to 500mg HS Repeat clozapine level 10/08/2024: Continue medications and treatment plan 10/07/2024: -Continue current medications and tx plan 10/06/2024: -Continue current medications and tx plan 10/05/2024: -Increase clozapine to 600mg HS 10/04/2024: -Discontinue Depakote -Schedule melatonin 3mg HS 10/03/2024: -Continue current medications and tx plan. 10/02/2024: -Taper Depakote to 500mg HS 10/01/24 Continue medication at current doses. Continue disposition planning. 09/30/24: Increase Glycopyrrolate to 2mg bid for hypersalivation. Continue other medication at current doses. 09/29/24: Continue medication regimen. Scheduled for evaluation by the Office of Aging on . 09/28/24: Add Melatonin 3mg qhs. Continue other medication at current doses. 09/27/24: Increase Haldol to 5mg bid Continue other medication at current doses. 09/26/24 Continue medication at current doses. Will review indication for Paxil. Continue orthostatic vital sign monitoring bid (130s-160s/80s today) along with close monitoring given fall risk. 09/25/2024: -Start haldol 2.5mg BID 09/24/2024: -Decrease Paxil to 30mg daily 09/23/2024: -Increase clozapine to 500mg HS 09/22/2024: -Increase Depakote ER to 1000mg HS -Discontinue Ativan HS scheduled, adjust to prn in case contributing to falls -Orthostatic vitals BID -PT consult 09/21/2024: Clozapine level tomorrow AM 09/20/2024: Increase clozapine to 450mg HS. 09/19/2024: Increase Paxil to 30mg BID 09/18/2024: Continue medications and treatment plan 09/17/2024 Discontinue Haloperidol 09/16/2024: Clozapine to 400 mg at bedtime and discontinue a.m. dose 09/15/2024: Increase clozapine to 50 mg in the morning. Increase glycopyrrolate to 1.5 mg twice daily. 09/14/2024: Start Clozapine 25 mg in the morning 09/13/24: Continue medications and treatment plan 09/12/2024: Decrease clozapine to 350 mg at bedtime Start glycopyrrolate 1 mg twice daily Decrease haloperidol to 2.5 mg twice daily 09/11/2024: -Increase clozapine to 400mg HS 09/10/2024: -Increase clozapine to 350mg HS 09/09/2024: -Increase haldol back to 2.5mg TID -Increase ipratropium bromide 0.06% under the tongue to 3 sprays TID for sialorrhea -Increase clozapine to 300mg HS 09/08/2024: -Decrease haldol to 2.5mg HS -Discontinue topiramate 09/07/2024: -Decrease haldol to 2.5mg BID -Increase clozapine to 250mg HS 09/06/2024: -Increase Depakote ER to 500mg -Increase ipratropium bromide 0.06% under the tongue to 2 sprays TID -taper Topiramate to 25mg HS to reduce polypharmacy burden 09/05/2024: The patient was admitted to the [facility] ([facility]) on q15 min checks (behavioral with suicide precautions) for safety. The patient will participate in group, recreational, and milieu therapies and will be offered additional individual and family sessions as clinically appropriate. -Continue psychiatric medications: * Clozapine 200mg HS (consider further dose titration) * Topiramate 25mg BID * Haldol 2.5mg TID * Ativan 1mg HS (goal to taper as sleep improves and stabilizes) -Adjust: * Paxil from 30mg BID to 30mg daily -Start: * Depakote ER 250mg HS -Clozapine level, fasting lipid panel, HBA1c tomorrow AM -Repeat EKG given his age and now on multiple medications that can impact QTc interval Inventory Assets Strengths: supportive living environment, cooperative Needs: safety and stabilization, medication adjustment, additional coping skills, increased outpatient services Suicide Risk Level Suicide Risk Level: Moderate (q15 min suicide checks) (denies SI but with periods of hallucinations and delusions which can negatively impacting his mood ) Suicide Risk Level Comments: Risk Factors Assessment Male: Yes : Yes Do You Have Access To A Gun?: No Health Problems: Yes Mental Health Diagnoses: Yes Substance Use Disorders: No Previous Attempt: No Family History of Suicide: No Previous Psychiatric Hospitalization: Yes Hopelessness: No Protective Factors Assessment Worship Beliefs: Yes Good Rapport with Provider: Yes Interval History Identifying Information REBA KELLY is a 69-year-old man who currently lives [facility], has a history of schizophrenia, recent subdural hematoma, H TN, Type II diabetes, HLD, BPH and was admitted on 09/04/24 14:12 on a 304 involuntary commitment for psychosis and disorganization. Chief Complaint Psychosis, AMS Review of Systems Sleep Information Total Hours of Sleep: 7.5 Sleep Comments: Incontinent of urine Meal Information Percent Meal Consumed - Breakfast: 90 Percent Meal Consumed - Lunch: 100 Percent Meal Consumed - Dinner: 98 Nutrition Comment: Patient ate some carrots and then states, "I'm not hungry." Subjective Subjective Patient was seen & assessed and interval progress reviewed with treatment team nursing and social work Pt slept 7.5 hours. Rated 10/10 mood. No incontinence episodes. BM yesterday. When patient sees me says "bless you sir". Slightly more articulate today. AO to self, place, brother, president. Not to month or day. Reports voices bothering him today. Denies pain. Notes it is easier to speak slightly. Continued salivation problem. No further concerns. Physical Exam Mental Examination Appearance: Disheveled Eye Contact: Maintains Eye Contact Motor Behavior: Slowed and Weakness Speech: Soft and Disorganized Mood: Calm Affect: Blunted Thought Process: Disorganized, Loose Associations and Slowed Thinking Thought Content: Disorganized and Preoccupation Hallucinations: Auditory Insight: Poor Judgement: Poor Vital Signs (Past 24 Hours) Last Vital Signs Temp 36.5 C 10/15/24 08:01 Pulse 89 10/15/24 08:01 Resp 16 10/15/24 08:01 BP 118/66 10/15/24 06:21 Pulse Ox 97 10/15/24 08:01 O2 Del Method Room Air 10/15/24 08:01 Results & Data ([facility]) Laboratory Results Laboratory Results - last 24 hr 10/09/24 10/15/24 13:13 07:55 POC Glucose 114 H Clozapine 579 Norclozapine 248 Current Inpatient Medications Current Inpatient Medications: Current Inpatient Medications Acetaminophen (Acetaminophen 325 Mg Tab) 650 mg PO Q4H PRN PRN Reason: Headache or Minor Fever Stop: 11/02/24 14:11 Last Admin: 10/04/24 21:24 Dose: 650 mg Al Hydrox/Mg Hydrox/Simethicone (Aluminum/Magnesium Susp 30 Ml Udc) 30 ml PO Q4H PRN PRN Reason: GI Upset Stop: 11/02/24 14:11 Atorvastatin Calcium (Atorvastatin 40 Mg Tab) 40 mg PO HS [facility] Stop: 11/02/24 21:59 Last Admin: 10/14/24 20:10 Dose: 40 mg Bismuth Subsalicylate (Bismuth Subsalicylate 262 Mg Chew) 2 tab PO Q30M PRN PRN Reason: Loose Stool/Diarrhea Stop: 11/02/24 14:11 Clozapine (Clozapine 100 Mg Tab) 500 mg PO QPM [facility] Stop: 11/13/24 20:59 Last Admin: 10/14/24 20:11 Dose: 500 mg Cyanocobalamin (Cyanocobalamin (B-12) 100 Mcg Tablet) 100 mcg PO QAM [facility] Stop: 11/02/24 08:59 Last Admin: 10/15/24 07:49 Dose: 100 mcg Docusate Sodium (Docusate Sodium 100 Mg Cap) 200 mg PO BID [facility] Stop: 11/13/24 20:59 Last Admin: 10/15/24 07:49 Dose: 200 mg Glycopyrrolate (Glycopyrrolate 1 Mg Tab) 1 mg PO BID [facility]ICE Stop: 11/13/24 20:59 Last Admin: 10/15/24 07:49 Dose: 1 mg Haloperidol (Haloperidol 5 Mg Tab) 5 mg PO BID PRN PRN Reason: psychosis Stop: 11/02/24 09:02 Last Admin: 10/02/24 12:10 Dose: 5 mg Haloperidol (Haloperidol 5 Mg Tab) 5 mg PO BID [facility]RICE Stop: 10/27/24 20:59 Last Admin: 10/15/24 07:48 Dose: 5 mg Haloperidol Lactate (Haloperidol Lactate 5 Mg/Ml 1 Ml Vial) 5 mg IM BID PRN PRN Reason: agitation Stop: 11/02/24 15:34 Hydroxyzine HCl (Hydroxyzine Hcl 25 Mg Tab) 50 mg PO HSZ PRN PRN Reason: Insomnia Stop: 11/02/24 14:11 Last Admin: 09/28/24 01:21 Dose: 50 mg Hydroxyzine HCl (Hydroxyzine Hcl 25 Mg Tab) 25 mg PO Q4H PRN PRN Reason: Anxiety Stop: 11/02/24 14:11 Levothyroxine Sodium (Levothyroxine Sodium 25 Mcg Tablet) 25 mcg PO DAILYBB [facility] Stop: 11/02/24 07:59 Last Admin: 10/15/24 07:47 Dose: 25 mcg Lisinopril (Lisinopril 20 Mg Tab) 20 mg PO DAILY [facility] Stop: 11/02/24 08:59 Last Admin: 10/15/24 07:47 Dose: 20 mg Lorazepam (Lorazepam 2 Mg/1 Ml Vial) 1 mg IM BID PRN PRN Reason: Agitation Stop: 11/02/24 15:34 Lorazepam (Lorazepam 1 Mg Tab) 1 mg PO DAILY PRN PRN Reason: restlessness Stop: 11/02/24 02:10 Last Admin: 09/25/24 07:46 Dose: 1 mg Lorazepam (Lorazepam 1 Mg Tab) 1 mg PO HS PRN PRN Reason: insomnia Stop: 11/02/24 16:13 Magnesium Hydroxide (Magnesium Hydroxide Susp 30 Ml Udc) 30 ml PO DAILY PRN PRN Reason: Constipation Stop: 11/02/24 14:11 Last Admin: 10/02/24 21:05 Dose: 30 ml Melatonin (Melatonin 3 Mg Tab) 3 mg PO HS [facility] Stop: 11/03/24 21:59 Last Admin: 10/14/24 20:11 Dose: 3 mg Meloxicam (Meloxicam 7.5 Mg Tab) 15 mg PO DAILY [facility] Stop: 11/02/24 08:59 Last Admin: 10/15/24 07:46 Dose: 15 mg Memantine (Memantine Hcl 10 Mg Tab) 10 mg PO QAM [facility] Stop: 11/14/24 08:59 Last Admin: 10/15/24 07:47 Dose: 10 mg Metformin HCl (Metformin Hcl 500 Mg Tab) 1,000 mg PO BID17 [facility] Stop: 11/02/24 16:59 Last Admin: 10/15/24 17:27 Dose: 1,000 mg Miscellaneous (Remove Nicoderm Patch) 1 each N/A 2100 [facility] Stop: 11/02/24 20:59 Last Admin: 10/14/24 20:14 Dose: 1 each Miscellaneous (Remove Nicoderm Patch) 1 each N/A DAILY@0859 [facility] Stop: 11/14/24 08:58 Last Admin: 10/15/24 09:33 Dose: Not Given Multivitamins (Multivitamin Tab) 1 tab PO DAILY [facility] Stop: 11/02/24 08:59 Last Admin: 10/15/24 07:47 Dose: 1 tab Nicotine (Nicotine 14 Mg/24 Hr Patch) 1 patch TD QAM [facility] Stop: 11/14/24 08:59 Last Admin: 10/15/24 09:33 Dose: Not Given Nicotine Polacrilex (Nicotine Polacrilex 2 Mg Gum) 1 piece MT Q2H PRN PRN Reason: smoking cessation Stop: 11/02/24 15:22 Last Admin: 09/29/24 10:35 Dose: 1 piece Paroxetine HCl (Paroxetine Hcl 10 Mg Tab) 30 mg PO DAILY [facility] Stop: 10/25/24 08:59 Last Admin: 10/15/24 07:47 Dose: 30 mg Phenylephrine HCl (Phenylephrine 0.25% Supp 1 Ea) 1 supp NV DAILY PRN PRN Reason: Hemorrhoids Stop: 11/04/24 15:02 Polyethylene Glycol (Polyethylene (Miralax) 17 Gm Pack) 17 gm PO Q48H [facility] Stop: 11/13/24 08:59 Last Admin: 10/14/24 09:03 Dose: 17 gm Sennosides (Senna 8.6 Mg Tab) 8.6 mg PO Q2D PRN PRN Reason: constipation Stop: 11/02/24 15:30 Sodium Chloride (Sodium Chloride 0.65% Na Soln 45 Ml (Starr)) 1 - 2 sprays NA PRN PRN PRN Reason: Nasal Dryness/Congestion Stop: 11/02/24 14:11 Vitamin D (Cholecalciferol 25 Mcg (1000 Units) Tab) 50 mcg PO QAM [facility] Stop: 11/02/24 08:59 Last Admin: 10/15/24 07:48 Dose: 50 mcg Mental Health & Subst Abuse Tx Psychiatrist Name of Psychiatrist: Haley Mazariegos (on maternity leave) will be seen by Dr. Juarez at [facility] Psychiatrist's Date Of Appointment With Psychiatric Provider: 09/27/24 Time of Appointment with Psychiatrist: 1:45PM Psychiatric Appointment Comment: [address] [place] [id number] [employer] Name [facility] He[facility] Seat Flap [facility] Phone Number for Heel Seat Flap Stapler: [phone] Post Discharge Appointments Primary Care Physician Name Of Family Doctor/PCP: Dr. Deonte Martinez - [address] [place] [address] Primary Care Date of Future Appointment with PCP: 09/28/24 Time of Appointment with PCP: 8AM Provider Appointment Comment: Arrive @ 745AM, will be seen by ROSE Espinal. Check in via [employer]. [facility] meds. Contact Information Discharge Discharge Address: [facility] [address] [place] [id number] (1) Psychosis Psychosis type: schizophrenia Schizophrenia type: paranoid schizophrenia Qualified Code(s): F20.0 - Paranoid schizophrenia
--- NOTE | 2024-10-16 14:29 | Psychiatric Progress Note ---
Date of Service October 16, 2024 Impression / Recommendations Impression REBA KELLY is a 69-year-old man who currently lives [facility], has a history of schizophrenia, recent subdural hematoma, HTN, Type II diabetes, HLD, BPH and was admitted on 09/04/24 14:12 on a 303 involuntary commitment for psychosis and disorganization and now on a 304 commitment granted on 09/23/2024. Diagnosis: Schizophrenia vs Schizoaffective Disorder Bipolar Type. s/p TBI with subdural hematoma (resolved) with low suspicion for confusion at this time. Pt had been stable on clozapine for many years but seems to have decompensated in the setting of his recent fall. A: Patient is presenting stable behaviors. Clozapine level resulted at 579 with a normal clozapine at 248 and is within expected levels and stable ratio. Speech is slightly less dysarthric however patient is difficult to comprehend. Possible dry mouth. MNPR due to previous disrobing, psychosis, disorganization and need to be able to use bedside urinal Overall, I spent a total of 35 minutes on this case including meeting with the patient, reviewing the chart, nursing report, orders, evidence base review and documentation. (1) Psychosis: (2) Schizophrenia: (3) Auditory hallucinations: (4) Sialorrhea: (5) Hypersexuality: (6) Hyperlipidemia: (7) Type 2 diabetes mellitus: (8) Hypertension: (9) Insomnia: Plan 10/16/2024: Biotene mouthwash twice daily after breakfast and lunch 10/15/24: Continue medications and treatment plan 10/14/24: Clozapine 500mg to QPM dosing Increase Memantine to 10mg daily Decrease glycopyrolate to 1mg BID Increase colace to 200mg BID 10/13/24: Continue medications and treatment plan 10/12/24: Miralax Q2D dosing 10/11/24: Start Memantine 5mg daily 10/10/2024: Continue medications and treatment plan 10/09/2024: Decrease clozapine to 500mg HS Repeat clozapine level 10/08/2024: Continue medications and treatment plan 10/07/2024: -Continue current medications and tx plan 10/06/2024: -Continue current medications and tx plan 10/05/2024: -Increase clozapine to 600mg HS 10/04/2024: -Discontinue Depakote -Schedule melatonin 3mg HS 10/03/2024: -Continue current medications and tx plan. 10/02/2024: -Taper Depakote to 500mg HS 10/01/24 Continue medication at current doses. Continue disposition planning. 09/30/24: Increase Glycopyrrolate to 2mg bid for hypersalivation. Continue other medication at current doses. 09/29/24: Continue medication regimen. Scheduled for evaluation by the Office of Aging on . 09/28/24: Add Melatonin 3mg qhs. Continue other medication at current doses. 09/27/24: Increase Haldol to 5mg bid Continue other medication at current doses. 09/26/24 Continue medication at current doses. Will review indication for Paxil. Continue orthostatic vital sign monitoring bid (130s-160s/80s today) along with close monitoring given fall risk. 09/25/2024: -Start haldol 2.5mg BID 09/24/2024: -Decrease Paxil to 30mg daily 09/23/2024: -Increase clozapine to 500mg HS 09/22/2024: -Increase Depakote ER to 1000mg HS -Discontinue Ativan HS scheduled, adjust to prn in case contributing to falls -Orthostatic vitals BID -PT consult 09/21/2024: Clozapine level tomorrow AM 09/20/2024: Increase clozapine to 450mg HS. 09/19/2024: Increase Paxil to 30mg BID 09/18/2024: Continue medications and treatment plan 09/17/2024 Discontinue Haloperidol 09/16/2024: Clozapine to 400 mg at bedtime and discontinue a.m. dose 09/15/2024: Increase clozapine to 50 mg in the morning. Increase glycopyrrolate to 1.5 mg twice daily. 09/14/2024: Start Clozapine 25 mg in the morning 09/13/24: Continue medications and treatment plan 09/12/2024: Decrease clozapine to 350 mg at bedtime Start glycopyrrolate 1 mg twice daily Decrease haloperidol to 2.5 mg twice daily 09/11/2024: -Increase clozapine to 400mg HS 09/10/2024: -Increase clozapine to 350mg HS 09/09/2024: -Increase haldol back to 2.5mg TID -Increase ipratropium bromide 0.06% under the tongue to 3 sprays TID for sialorrhea -Increase clozapine to 300mg HS 09/08/2024: -Decrease haldol to 2.5mg HS -Discontinue topiramate 09/07/2024: -Decrease haldol to 2.5mg BID -Increase clozapine to 250mg HS 09/06/2024: -Increase Depakote ER to 500mg -Increase ipratropium bromide 0.06% under the tongue to 2 sprays TID -taper Topiramate to 25mg HS to reduce polypharmacy burden 09/05/2024: The patient was admitted to the [facility] ([facility]) on q15 min checks (behavioral with suicide precautions) for safety. The patient will participate in group, recreational, and milieu therapies and will be offered additional individual and family sessions as clinically appropriate. -Continue psychiatric medications: * Clozapine 200mg HS (consider further dose titration) * Topiramate 25mg BID * Haldol 2.5mg TID * Ativan 1mg HS (goal to taper as sleep improves and stabilizes) -Adjust: * Paxil from 30mg BID to 30mg daily -Start: * Depakote ER 250mg HS -Clozapine level, fasting lipid panel, HBA1c tomorrow AM -Repeat EKG given his age and now on multiple medications that can impact QTc interval Inventory Assets Strengths: supportive living environment, cooperative Needs: safety and stabilization, medication adjustment, additional coping skills, increased outpatient services Suicide Risk Level Suicide Risk Level: Moderate (q15 min suicide checks) (denies SI but with periods of hallucinations and delusions which can negatively impacting his mood ) Suicide Risk Level Comments: Risk Factors Assessment Male: Yes : Yes Do You Have Access To A Gun?: No Health Problems: Yes Mental Health Diagnoses: Yes Substance Use Disorders: No Previous Attempt: No Family History of Suicide: No Previous Psychiatric Hospitalization: Yes Hopelessness: No Protective Factors Assessment [employer]al Beliefs: Yes Good Rapport with Provider: Yes Interval History Identifying Information REBA KELLY is a 69-year-old man who currently lives [facility], has a history of schizophrenia, recent subdural hematoma, HTN, Type II diabetes, HLD, BPH and was admitted on 09/04/24 14:12 on a 304 involuntary commitment for psychosis and disorganization. Chief Complaint Psychosis, AMS Review of Systems Sleep Information Total Hours of Sleep: 7.25 Sleep Comments: Incontinent of urine Meal Information Percent Meal Consumed - Breakfast: 100 Percent Meal Consumed - Lunch: 100 Percent Meal Consumed - Dinner: 98 Nutrition Comment: Patient ate some carrots and then states, "I'm not hungry." Subjective Subjective Patient was seen & assessed and interval progress reviewed with treatment team nursing and social work Overnight slept 7 hours. No incontinence episodes. Concerned that he may be slightly choking on food. On interview patient is slightly tangential saying that he is "I am paranoid schizophrenic". Able to be redirected. He is alert and oriented to himself, hospital, brother, president, brother's daughter. Is agreeable for her daughter to be power of insurance defense attorney. Reports having a bowel movement yesterday. Concern for ongoing auditory hallucinations. Says that his towel that he uses for saliva is dry. Physical Exam Mental Examination Appearance: Disheveled Eye Contact: Maintains Eye Contact Motor Behavior: Slowed and Weakness Speech: Soft and Disorganized Mood: Calm Affect: Blunted Thought Process: Disorganized, Loose Associations and Slowed Thinking Thought Content: Disorganized and Preoccupation Hallucinations: Auditory Insight: Poor Judgement: Poor Vital Signs (Past 24 Hours) Last Vital Signs Temp 36.2 C L 10/16/24 06:24 Pulse 80 10/15/24 20:52 Resp 17 10/16/24 06:24 BP 128/85 10/15/24 20:52 Pulse Ox 98 10/16/24 06:24 O2 Del Method Room Air 10/16/24 06:24 Results & Data ([facility]) Laboratory Results Laboratory Results - last 24 hr 10/16/24 08:52 POC Glucose 134 H Current Inpatient Medications Current Inpatient Medications: Current Inpatient Medications Acetaminophen (Acetaminophen 325 Mg Tab) 650 mg PO Q4H PRN PRN Reason: Headache or Minor Fever Stop: 11/02/24 14:11 Last Admin: 10/04/24 21:24 Dose: 650 mg Al Hydrox/Mg Hydrox/Simethicone (Aluminum/Magnesium Susp 30 Ml Udc) 30 ml PO Q4H PRN PRN Reason: GI Upset Stop: 11/02/24 14:11 Atorvastatin Calcium (Atorvastatin 40 Mg Tab) 40 mg PO HS [facility] Stop: 11/02/24 21:59 Last Admin: 10/15/24 20:42 Dose: 40 mg Bismuth Subsalicylate (Bismuth Subsalicylate 262 Mg Chew) 2 tab PO Q30M PRN PRN Reason: Loose Stool/Diarrhea Stop: 11/02/24 14:11 Clozapine (Clozapine 100 Mg Tab) 500 mg PO QPM [facility] Stop: 11/13/24 20:59 Last Admin: 10/15/24 20:42 Dose: 500 mg Cyanocobalamin (Cyanocobalamin (B-12) 100 Mcg Tablet) 100 mcg PO QAM [facility] Stop: 11/02/24 08:59 Last Admin: 10/16/24 09:09 Dose: 100 mcg Docusate Sodium (Docusate Sodium 100 Mg Cap) 200 mg PO BID [facility] Stop: 11/13/24 20:59 Last Admin: 10/16/24 09:09 Dose: 200 mg Glycopyrrolate (Glycopyrrolate 1 Mg Tab) 1 mg PO BID [facility] Stop: 11/13/24 20:59 Last Admin: 10/16/24 09:09 Dose: 1 mg Haloperidol (Haloperidol 5 Mg Tab) 5 mg PO BID PRN PRN Reason: psychosis Stop: 11/02/24 09:02 Last Admin: 10/02/24 12:10 Dose: 5 mg Haloperidol (Haloperidol 5 Mg Tab) 5 mg PO BID [facility] Stop: 10/27/24 20:59 Last Admin: 10/16/24 09:09 Dose: 5 mg Haloperidol Lactate (Haloperidol Lactate 5 Mg/Ml 1 Ml Vial) 5 mg IM BID PRN PRN Reason: agitation Stop: 11/02/24 15:34 Hydroxyzine HCl (Hydroxyzine Hcl 25 Mg Tab) 50 mg PO HSZ PRN PRN Reason: Insomnia Stop: 11/02/24 14:11 Last Admin: 09/28/24 01:21 Dose: 50 mg Hydroxyzine HCl (Hydroxyzine Hcl 25 Mg Tab) 25 mg PO Q4H PRN PRN Reason: Anxiety Stop: 11/02/24 14:11 Levothyroxine Sodium (Levothyroxine Sodium 25 Mcg Tablet) 25 mcg PO DAILYBB [facility] Stop: 11/02/24 07:59 Last Admin: 10/16/24 09:08 Dose: 25 mcg Lisinopril (Lisinopril 20 Mg Tab) 20 mg PO DAILY [facility] Stop: 11/02/24 08:59 Last Admin: 10/16/24 09:10 Dose: 20 mg Lorazepam (Lorazepam 2 Mg/1 Ml Vial) 1 mg IM BID PRN PRN Reason: Agitation Stop: 11/02/24 15:34 Lorazepam (Lorazepam 1 Mg Tab) 1 mg PO DAILY PRN PRN Reason: restlessness Stop: 11/02/24 02:10 Last Admin: 09/25/24 07:46 Dose: 1 mg Lorazepam (Lorazepam 1 Mg Tab) 1 mg PO HS PRN PRN Reason: insomnia Stop: 11/02/24 16:13 Magnesium Hydroxide (Magnesium Hydroxide Susp 30 Ml Udc) 30 ml PO DAILY PRN PRN Reason: Constipation Stop: 11/02/24 14:11 Last Admin: 10/02/24 21:05 Dose: 30 ml Melatonin (Melatonin 3 Mg Tab) 3 mg PO HS [facility] Stop: 11/03/24 21:59 Last Admin: 10/15/24 20:41 Dose: 3 mg Meloxicam (Meloxicam 7.5 Mg Tab) 15 mg PO DAILY [facility] Stop: 11/02/24 08:59 Last Admin: 10/16/24 09:10 Dose: 15 mg Memantine (Memantine Hcl 10 Mg Tab) 10 mg PO QAM [facility] Stop: 11/14/24 08:59 Last Admin: 10/16/24 09:10 Dose: 10 mg Metformin HCl (Metformin Hcl 500 Mg Tab) 1,000 mg PO BID17 [facility] Stop: 11/02/24 16:59 Last Admin: 10/16/24 09:10 Dose: 1,000 mg Miscellaneous (Remove Nicoderm Patch) 1 each N/A 2100 [facility] Stop: 11/02/24 20:59 Last Admin: 10/15/24 20:51 Dose: Not Given Miscellaneous (Remove Nicoderm Patch) 1 each N/A DAILY@0859 [facility] Stop: 11/14/24 08:58 Last Admin: 10/16/24 09:08 Dose: Not Given Multivitamins (Multivitamin Tab) 1 tab PO DAILY [facility] Stop: 11/02/24 08:59 Last Admin: 10/16/24 09:10 Dose: 1 tab Nicotine (Nicotine 14 Mg/24 Hr Patch) 1 patch TD QAM [facility] Stop: 11/14/24 08:59 Last Admin: 10/16/24 09:11 Dose: 1 patch Nicotine Polacrilex (Nicotine Polacrilex 2 Mg Gum) 1 piece MT Q2H PRN PRN Reason: smoking cessation Stop: 11/02/24 15:22 Last Admin: 09/29/24 10:35 Dose: 1 piece Paroxetine HCl (Paroxetine Hcl 10 Mg Tab) 30 mg PO DAILY [facility] Stop: 10/25/24 08:59 Last Admin: 10/16/24 09:12 Dose: 30 mg Phenylephrine HCl (Phenylephrine 0.25% Supp 1 Ea) 1 supp NE DAILY PRN PRN Reason: Hemorrhoids Stop: 11/04/24 15:02 Polyethylene Glycol (Polyethylene (Miralax) 17 Gm Pack) 17 gm PO Q48H [facility] Stop: 11/13/24 08:59 Last Admin: 10/16/24 09:12 Dose: 17 gm Sennosides (Senna 8.6 Mg Tab) 8.6 mg PO Q2D PRN PRN Reason: constipation Stop: 11/02/24 15:30 Sodium Chloride (Sodium Chloride 0.65% Na Soln 45 Ml ([place])) 1 - 2 sprays NA PRN PRN PRN Reason: Nasal Dryness/Congestion Stop: 11/02/24 14:11 Vitamin D (Cholecalciferol 25 Mcg (1000 Units) Tab) 50 mcg PO QAM [facility] Stop: 11/02/24 08:59 Last Admin: 10/16/24 09:09 Dose: 50 mcg Mental Health & Subst Abuse Tx Psychiatrist Name of Psychiatrist: Haley Mazariegos (on maternity leave) will be seen by Dr. Juarez at [facility] Psychiatrist's Date Of Appointment With Psychiatric Provider: 09/27/24 Time of Appointment with Psychiatrist: 1:45PM Psychiatric Appointment Comment: [address] [place] [id number] Contact Center Team Lead Name of Contact Center Team Lead: Evelyn [facility] unit comp field case manager Phone Number for Contact Center Team Lead: [phone] Post Discharge Appointments Primary Care Physician Name Of Family Doctor/PCP: Dr. Deonte Martinez - [address] [place] [address] Primary Care Date of Future Appointment with PCP: 09/28/24 Time of Appointment with PCP: 8AM Provider Appointment Comment: Arrive @ 745AM, will be seen by ROSE Espinal. Check in via Bring meds. Contact Information Discharge Discharge Address: [facility] [address] [place] [id number] (1) Psychosis Psychosis type: schizophrenia Schizophrenia type: paranoid schizophrenia Qualified Code(s): F20.0 - Paranoid schizophrenia
--- NOTE | 2024-10-17 12:54 | Psychiatric Progress Note ---
Date of Service October 17, 2024 Impression / Recommendations Impression REBA KELLY is a 69-year-old man who currently lives [facility], has a history of schizophrenia, recent subdural hematoma, HTN, Type II diabetes, HLD, BPH and was admitted on 09/04/24 14:12 on a 303 involuntary commitment for psychosis and disorganization and now on a 304 commitment granted on 09/23/2024. Diagnosis: Schizophrenia vs Schizoaffective Disorder Bipolar Type. s/p TBI with subdural hematoma (resolved) with low suspicion for confusion at this time. Pt had been stable on clozapine for many years but seems to have decompensated in the setting of his recent fall. A: Patient appears oriented to her situation and is agreeable to a power of regulatory attorney. Ongoing sialorrhea complaints. Today appears less dysarthric and was more coherent. No recent falls or incontinence. Appears to be in a pleasant mood. Some baseline psychosis. MNPR due to psychosis, past disinhibited behaviors Overall, I spent a total of 35 minutes on this case including meeting with the patient, reviewing the chart, nursing report, orders, evidence base review and documentation. (1) Psychosis: (2) Schizophrenia: (3) Auditory hallucinations: (4) Sialorrhea: (5) Hypersexuality: (6) Hyperlipidemia: (7) Type 2 diabetes mellitus: (8) Hypertension: (9) Insomnia: Plan 10/17/2024: Continue medications and treatment plan 10/16/2024: Biotene mouthwash twice daily after breakfast and lunch 10/15/24: Continue medications and treatment plan 10/14/24: Clozapine 500mg to QPM dosing Increase Memantine to 10mg daily Decrease glycopyrolate to 1mg BID Increase colace to 200mg BID 10/13/24: Continue medications and treatment plan 10/12/24: Miralax Q2D dosing 10/11/24: Start Memantine 5mg daily 10/10/2024: Continue medications and treatment plan 10/09/2024: Decrease clozapine to 500mg HS Repeat clozapine level 10/08/2024: Continue medications and treatment plan 10/07/2024: -Continue current medications and tx plan 10/06/2024: -Continue current medications and tx plan 10/05/2024: -Increase clozapine to 600mg HS 10/04/2024: -Discontinue Depakote -Schedule melatonin 3mg HS 10/03/2024: -Continue current medications and tx plan. 10/02/2024: -Taper Depakote to 500mg HS 10/01/24 Continue medication at current doses. Continue disposition planning. 09/30/24: Increase Glycopyrrolate to 2mg bid for hypersalivation. Continue other medication at current doses. 09/29/24: Continue medication regimen. Scheduled for evaluation by the Office of Aging on . 09/28/24: Add Melatonin 3mg qhs. Continue other medication at current doses. 09/27/24: Increase Haldol to 5mg bid Continue other medication at current doses. 09/26/24 Continue medication at current doses. Will review indication for Paxil. Continue orthostatic vital sign monitoring bid (130s-160s/80s today) along with close monitoring given fall risk. 09/25/2024: -Start haldol 2.5mg BID 09/24/2024: -Decrease Paxil to 30mg daily 09/23/2024: -Increase clozapine to 500mg HS 09/22/2024: -Increase Depakote ER to 1000mg HS -Discontinue Ativan HS scheduled, adjust to prn in case contributing to falls -Orthostatic vitals BID -PT consult 09/21/2024: Clozapine level tomorrow AM 09/20/2024: Increase clozapine to 450mg HS. 09/19/2024: Increase Paxil to 30mg BID 09/18/2024: Continue medications and treatment plan 09/17/2024 Discontinue Haloperidol 09/16/2024: Clozapine to 400 mg at bedtime and discontinue a.m. dose 09/15/2024: Increase clozapine to 50 mg in the morning. Increase glycopyrrolate to 1.5 mg twice daily. 09/14/2024: Start Clozapine 25 mg in the morning 09/13/24: Continue medications and treatment plan 09/12/2024: Decrease clozapine to 350 mg at bedtime Start glycopyrrolate 1 mg twice daily Decrease haloperidol to 2.5 mg twice daily 09/11/2024: -Increase clozapine to 400mg HS 09/10/2024: -Increase clozapine to 350mg HS 09/09/2024: -Increase haldol back to 2.5mg TID -Increase ipratropium bromide 0.06% under the tongue to 3 sprays TID for sialorrhea -Increase clozapine to 300mg HS 09/08/2024: -Decrease haldol to 2.5mg HS -Discontinue topiramate 09/07/2024: -Decrease haldol to 2.5mg BID -Increase clozapine to 250mg HS 09/06/2024: -Increase Depakote ER to 500mg -Increase ipratropium bromide 0.06% under the tongue to 2 sprays TID -taper Topiramate to 25mg HS to reduce polypharmacy burden 09/05/2024: The patient was admitted to the [facility] ([facility]) on q15 min checks (behavioral with suicide precautions) for safety. The patient will participate in group, recreational, and milieu therapies and will be offered additional individual and family sessions as clinically appropriate. -Continue psychiatric medications: * Clozapine 200mg HS (consider further dose titration) * Topiramate 25mg BID * Haldol 2.5mg TID * Ativan 1mg HS (goal to taper as sleep improves and stabilizes) -Adjust: * Paxil from 30mg BID to 30mg daily -Start: * Depakote ER 250mg HS -Clozapine level, fasting lipid panel, HBA1c tomorrow AM -Repeat EKG given his age and now on multiple medications that can impact QTc interval Inventory Assets Strengths: supportive living environment, cooperative Needs: safety and stabilization, medication adjustment, additional coping skills, increased outpatient services Suicide Risk Level Suicide Risk Level: Moderate (q15 min suicide checks) (denies SI but with periods of hallucinations and delusions which can negatively impacting his mood ) Suicide Risk Level Comments: Risk Factors Assessment Male: Yes : Yes Do You Have Access To A Gun?: No Health Problems: Yes Mental Health Diagnoses: Yes Substance Use Disorders: No Previous Attempt: No Family History of Suicide: No Previous Psychiatric Hospitalization: Yes Hopelessness: No Protective Factors Assessment Anglican Beliefs: Yes Good Rapport with Provider: Yes Interval History Identifying Information REBA KELLY is a 69-year-old man who currently lives [facility], has a history of schizophrenia, recent subdural hematoma, HTN, Type II diabetes, HLD, BPH and was admitted on 09/04/24 14:12 on a 304 invo luntary commitment for psychosis and disorganization. Chief Complaint Psychosis, AMS Review of Systems Sleep Information Total Hours of Sleep: 6.5 Sleep Comments: Incontinent of urine Meal Information Percent Meal Consumed - Breakfast: 100 Percent Meal Consumed - Lunch: 100 Percent Meal Consumed - Dinner: 0 Nutrition Comment: Patient ate some carrots and then states, "I'm not hungry." Subjective Subjective Patient was seen & assessed and interval progress reviewed with treatment team nursing and social work Overnight going into peers rooms and redirected. No incontinence episodes. Slept 6.5 hours. Had bowel movement on 10/15/2024. On interview is alert and oriented to himself, location, current president, brother, brothers daughter. Not to year or month. Explained to him what a power of regulatory attorney involves and he is agreeable for niece to be a power of regulatory attorney. Says that he blesses me. Denies pain. Complains of ongoing drooling. Appears less dysarthric today. Physical Exam Mental Examination Appearance: Disheveled Eye Contact: Maintains Eye Contact Motor Behavior: Slowed Speech: Soft and Disorganized Mood: Calm Affect: Blunted Thought Process: Disorganized and Slowed Thinking Thought Content: Disorganized and Preoccupation Hallucinations: Auditory Insight: Poor Judgement: Poor Vital Signs (Past 24 Hours) Last Vital Signs Temp 36.3 C L 10/17/24 06:19 Pulse 80 10/15/24 20:52 Resp 17 10/17/24 06:19 BP 128/85 10/15/24 20:52 Pulse Ox 98 10/17/24 06:19 O2 Del Method Room Air 10/17/24 06:19 Results & Data (U) Laboratory Results Laboratory Results - last 24 hr 10/17/24 06:52 POC Glucose 90 Current Inpatient Medications Current Inpatient Medications: Current Inpatient Medications Acetaminophen (Acetaminophen 325 Mg Tab) 650 mg PO Q4H PRN PRN Reason: Headache or Minor Fever Stop: 11/02/24 14:11 Last Admin: 10/04/24 21:24 Dose: 650 mg Al Hydrox/Mg Hydrox/Simethicone (Aluminum/Magnesium Susp 30 Ml Udc) 30 ml PO Q4H PRN PRN Reason: GI Upset Stop: 11/02/24 14:11 Atorvastatin Calcium (Atorvastatin 40 Mg Tab) 40 mg PO HS [facility] Stop: 11/02/24 21:59 Last Admin: 10/16/24 20:36 Dose: 40 mg Bismuth Subsalicylate (Bismuth Subsalicylate 262 Mg Chew) 2 tab PO Q30M PRN PRN Reason: Loose Stool/Diarrhea Stop: 11/02/24 14:11 Clozapine (Clozapine 100 Mg Tab) 500 mg PO QPM [facility] Stop: 11/13/24 20:59 Last Admin: 10/16/24 20:36 Dose: 500 mg Cyanocobalamin (Cyanocobalamin (B-12) 100 Mcg Tablet) 100 mcg PO QAM [facility] Stop: 11/02/24 08:59 Last Admin: 10/17/24 08:59 Dose: 100 mcg Docusate Sodium (Docusate Sodium 100 Mg Cap) 200 mg PO BID [facility] Stop: 11/13/24 20:59 Last Admin: 10/17/24 08:59 Dose: 200 mg Glycopyrrolate (Glycopyrrolate 1 Mg Tab) 1 mg PO BID [facility] Stop: 11/13/24 20:59 Last Admin: 10/17/24 08:59 Dose: 1 mg Haloperidol (Haloperidol 5 Mg Tab) 5 mg PO BID PRN PRN Reason: psychosis Stop: 11/02/24 09:02 Last Admin: 10/02/24 12:10 Dose: 5 mg Haloperidol (Haloperidol 5 Mg Tab) 5 mg PO BID [facility] Stop: 10/27/24 20:59 Last Admin: 10/17/24 08:59 Dose: 5 mg Haloperidol Lactate (Haloperidol Lactate 5 Mg/Ml 1 Ml Vial) 5 mg IM BID PRN PRN Reason: agitation Stop: 11/02/24 15:34 Hydroxyzine HCl (Hydroxyzine Hcl 25 Mg Tab) 50 mg PO HSZ PRN PRN Reason: Insomnia Stop: 11/02/24 14:11 Last Admin: 09/28/24 01:21 Dose: 50 mg Hydroxyzine HCl (Hydroxyzine Hcl 25 Mg Tab) 25 mg PO Q4H PRN PRN Reason: Anxiety Stop: 11/02/24 14:11 Levothyroxine Sodium (Levothyroxine Sodium 25 Mcg Tablet) 25 mcg PO DAILYBB [facility] Stop: 11/02/24 07:59 Last Admin: 10/17/24 07:29 Dose: 25 mcg Lisinopril (Lisinopril 20 Mg Tab) 20 mg PO DAILY [facility] Stop: 11/02/24 08:59 Last Admin: 10/17/24 08:59 Dose: 20 mg Lorazepam (Lorazepam 2 Mg/1 Ml Vial) 1 mg IM BID PRN PRN Reason: Agitation Stop: 11/02/24 15:34 Lorazepam (Lorazepam 1 Mg Tab) 1 mg PO DAILY PRN PRN Reason: restlessness Stop: 11/02/24 02:10 Last Admin: 09/25/24 07:46 Dose: 1 mg Lorazepam (Lorazepam 1 Mg Tab) 1 mg PO HS PRN PRN Reason: insomnia Stop: 11/02/24 16:13 Magnesium Hydroxide (Magnesium Hydroxide Susp 30 Ml Udc) 30 ml PO DAILY PRN PRN Reason: Constipation Stop: 11/02/24 14:11 Last Admin: 10/02/24 21:05 Dose: 30 ml Melatonin (Melatonin 3 Mg Tab) 3 mg PO HS [facility] Stop: 11/03/24 21:59 Last Admin: 10/16/24 20:35 Dose: 3 mg Meloxicam (Meloxicam 7.5 Mg Tab) 15 mg PO DAILY [facility] Stop: 11/02/24 08:59 Last Admin: 10/17/24 09:00 Dose: 15 mg Memantine (Memantine Hcl 10 Mg Tab) 10 mg PO QAM [facility] Stop: 11/14/24 08:59 Last Admin: 10/17/24 09:00 Dose: 10 mg Metformin HCl (Metformin Hcl 500 Mg Tab) 1,000 mg PO BID17 [facility] Stop: 11/02/24 16:59 Last Admin: 10/17/24 09:00 Dose: 1,000 mg Miscellaneous (Remove Nicoderm Patch) 1 each N/A 2100 [facility] Stop: 11/02/24 20:59 Last Admin: 10/16/24 20:37 Dose: 1 each Miscellaneous (Remove Nicoderm Patch) 1 each N/A DAILY@0859 [facility] Stop: 11/14/24 08:58 Last Admin: 10/17/24 08:58 Dose: 1 each Multivitamins (Multivitamin Tab) 1 tab PO DAILY [facility] Stop: 11/02/24 08:59 Last Admin: 10/17/24 09:00 Dose: 1 tab Nicotine (Nicotine 14 Mg/24 Hr Patch) 1 patch TD QAM [facility] Stop: 11/14/24 08:59 Last Admin: 10/17/24 09:00 Dose: 1 patch Nicotine Polacrilex (Nicotine Polacrilex 2 Mg Gum) 1 piece MT Q2H PRN PRN Reason: smoking cessation Stop: 11/02/24 15:22 Last Admin: 09/29/24 10:35 Dose: 1 piece Paroxetine HCl (Paroxetine Hcl 10 Mg Tab) 30 mg PO DAILY [facility] Stop: 10/25/24 08:59 Last Admin: 10/17/24 09:01 Dose: 30 mg Phenylephrine HCl (Phenylephrine 0.25% Supp 1 Ea) 1 supp IA DAILY PRN PRN Reason: Hemorrhoids Stop: 11/04/24 15:02 Polyethylene Glycol (Polyethylene (Miralax) 17 Gm Pack) 17 gm PO Q48H [facility] Stop: 11/13/24 08:59 Last Admin: 10/16/24 09:12 Dose: 17 gm Sennosides (Senna 8.6 Mg Tab) 8.6 mg PO Q2D PRN PRN Reason: constipation Stop: 11/02/24 15:30 Sodium Chloride (Sodium Chloride 0.65% Na Soln 45 Ml ([place])) 1 - 2 sprays NA PRN PRN PRN Reason: Nasal Dryness/Congestion Stop: 11/02/24 14:11 Vitamin D (Cholecalciferol 25 Mcg (1000 Units) Tab) 50 mcg PO QAM [facility] Stop: 11/02/24 08:59 Last Admin: 10/17/24 08:59 Dose: 50 mcg Mental Health & Subst Abuse Tx Psychiatrist Name of Psychiatrist: Haley Mazariegos (on maternity leave) will be seen by Dr. Juarez at [facility] Psychiatrist's Date Of Appointment With Psychiatric Provider: 09/27/24 Time of Appointment with Psychiatrist: 1:45PM Psychiatric Appointment Comment: [address] [place] [id number] B[facility] Spec [facility] Phone Number for Billing Spec: [phone] Post Discharge Appointments Primary Care Physician Name Of Family Doctor/PCP: Dr. Deonte Martinez - [address] [place] [address] Primary Care Date of Future Appointment with PCP: 09/28/24 Time of Appointment with PCP: 8AM Provider Appointment Comment: Arrive @ 745AM, will be seen by ROSE Espinal. Check in via kiosk. [employer]. Contact Information Discharge Discharge Address: [facility] [address] [address] (1) Psychosis Psychosis type: schizophrenia Schizophrenia type: paranoid schizophrenia Qualified Code(s): F20.0 - Paranoid schizophrenia
--- NOTE | 2024-10-18 14:33 | Psychiatric Progress Note ---
Date of Service October 18, 2024 Impression / Recommendations Impression REBA KELLY is a 69-year-old man who currently lives [facility], has a history of schizophrenia, recent subdural hematoma, HTN, Type II diabetes, HLD, BPH and was admitted on 09/04/24 14:12 on a 303 involuntary commitment for psychosis and disorganization and now on a 304 commitment granted on 09/23/2024. Diagnosis: Schizophrenia vs Schizoaffective Disorder Bipolar Type. s/p TBI with subdural hematoma (resolved) with low suspicion for confusion at this time. Pt had been stable on clozapine for many years but seems to have decompensated in the setting of his recent fall. A: Pt to sign POA paperwork today. Ongoing sialorrhea complaints however lessening. Today appears less dysarthric and was more coherent. No recent falls or incontinence. Appears to be in a pleasant mood. Some baseline psychosis. MNPR due to psychosis, past disinhibited behaviors Overall, I spent a total of 35 minutes on this case including meeting with the patient, reviewing the chart, nursing report, orders, evidence base review and documentation. (1) Psychosis: (2) Schizophrenia: (3) Auditory hallucinations: (4) Sialorrhea: (5) Hypersexuality: (6) Hyperlipidemia: (7) Type 2 diabetes mellitus: (8) Hypertension: (9) Insomnia: Plan 10/18/2024: Continue medications and treatment plan 10/17/2024: Continue medications and treatment plan 10/16/2024: Biotene mouthwash twice daily after breakfast and lunch 10/15/24: Continue medications and treatment plan 10/14/24: Clozapine 500mg to QPM dosing Increase Memantine to 10mg daily Decrease glycopyrolate to 1mg BID Increase colace to 200mg BID 10/13/24: Continue medications and treatment plan 10/12/24: Miralax Q2D dosing 10/11/24: Start Memantine 5mg daily 10/10/2024: Continue medications and treatment plan 10/09/2024: Decrease clozapine to 500mg HS Repeat clozapine level 10/08/2024: Continue medications and treatment plan 10/07/2024: -Continue current medications and tx plan 10/06/2024: -Continue current medications and tx plan 10/05/2024: -Increase clozapine to 600mg HS 10/04/2024: -Discontinue Depakote -Schedule melatonin 3mg HS 10/03/2024: -Continue current medications and tx plan. 10/02/2024: -Taper Depakote to 500mg HS 10/01/24 Continue medication at current doses. Continue disposition planning. 09/30/24: Increase Glycopyrrolate to 2mg bid for hypersalivation. Continue other medication at current doses. 09/29/24: Continue medication regimen. Scheduled for evaluation by the Office of Aging on . 09/28/24: Add Melatonin 3mg qhs. Continue other medication at current doses. 09/27/24: Increase Haldol to 5mg bid Continue other medication at current doses. 09/26/24 Continue medication at current doses. Will review indication for Paxil. Continue orthostatic vital sign monitoring bid (130s-160s/80s today) along with close monitoring given fall risk. 09/25/2024: -Start haldol 2.5mg BID 09/24/2024: -Decrease Paxil to 30mg daily 09/23/2024: -Increase clozapine to 500mg HS 09/22/2024: -Increase Depakote ER to 1000mg HS -Discontinue Ativan HS scheduled, adjust to prn in case contributing to falls -Orthostatic vitals BID -PT consult 09/21/2024: Clozapine level tomorrow AM 09/20/2024: Increase clozapine to 450mg HS. 09/19/2024: Increase Paxil to 30mg BID 09/18/2024: Continue medications and treatment plan 09/17/2024 Discontinue Haloperidol 09/16/2024: Clozapine to 400 mg at bedtime and discontinue a.m. dose 09/15/2024: Increase clozapine to 50 mg in the morning. Increase glycopyrrolate to 1.5 mg twice daily. 09/14/2024: Start Clozapine 25 mg in the morning 09/13/24: Continue medications and treatment plan 09/12/2024: Decrease clozapine to 350 mg at bedtime Start glycopyrrolate 1 mg twice daily Decrease haloperidol to 2.5 mg twice daily 09/11/2024: -Increase clozapine to 400mg HS 09/10/2024: -Increase clozapine to 350mg HS 09/09/2024: -Increase haldol back to 2.5mg TID -Increase ipratropium bromide 0.06% under the tongue to 3 sprays TID for sialorrhea -Increase clozapine to 300mg HS 09/08/2024: -Decrease haldol to 2.5mg HS -Discontinue topiramate 09/07/2024: -Decrease haldol to 2.5mg BID -Increase clozapine to 250mg HS 09/06/2024: -Increase Depakote ER to 500mg -Increase ipratropium bromide 0.06% under the tongue to 2 sprays TID -taper Topiramate to 25mg HS to reduce polypharmacy burden 09/05/2024: The patient was admitted to the [facility] ([facility] unit) on q15 min checks (behavioral with suicide precautions) for safety. The patient will participate in group, recreational, and milieu therapies and will be offered additional individual and family sessions as clinically appropriate. -Continue psychiatric medications: * Clozapine 200mg HS (consider further dose titration) * Topiramate 25mg BID * Haldol 2.5mg TID * Ativan 1mg HS (goal to taper as sleep improves and stabilizes) -Adjust: * Paxil from 30mg BID to 30mg daily -Start: * Depakote ER 250mg HS -Clozapine level, fasting lipid panel, HBA1c tomorrow AM -Repeat EKG given his age and now on multiple medications that can impact QTc interval Inventory Assets Strengths: supportive living environment, cooperative Needs: safety and stabilization, medication adjustment, additional coping skills, increased outpatient services Suicide Risk Level Suicide Risk Level: Moderate (q15 min suicide checks) (denies SI but with periods of hallucinations and delusions which can negatively impacting his mood ) Suicide Risk Level Comments: Risk Factors Assessment Male: Yes : Yes Do You Have Access To A Gun?: No Health Problems: Yes Mental Health Diagnoses: Yes Substance Use Disorders: No Previous Attempt: No Family History of Suicide: No Previous Psychiatric Hospitalization: Yes Hopelessness: No Protective Factors Assessment Orthodoxy Beliefs: Yes Good Rapport with Provider: Yes Interval History Identifying Information REBA KELLY is a 69-year-old man who currently lives [facility], has a history of schizophrenia, recent subdural hematoma, HTN, Type II diabetes, HLD, BPH and was admitted on 09/04/24 14:12 on a 304 involuntary commitment for psychosis and disorganization. Chief Complaint Psychosis, AMS Review of Systems Sleep Information Total Hours of Sleep: 6.25 Sleep Comments: Incontinent of urine Meal Information Percent Meal Consumed - Breakfast: 50 Percent Meal Consumed - Lunch: 100 Percent Meal Consumed - Dinner: 50 Nutrition Comment: Patient ate some carrots and then states, "I'm not hungry." Subjective Subjective Patient was seen & assessed and interval progress reviewed with treatment team nursing and social work Slept 6.25 hours. His niece will arrive today to sign POA paperwork. Had bowel movement yesterday. Accepted into [facility]. On interview he blesses me. Alert and oriented to himself, location, brother, niece, president. Agreeable for her needs to be as power of criminal attorney and explained what that involves. Reports voices bothering him a "little bit". Reports ongoing drooling however has improved. Mumbles at times and smiles. Physical Exam Mental Examination Appearance: Disheveled Eye Contact: Maintains Eye Contact Motor Behavior: Slowed Speech: Soft and Disorganized Mood: Calm Affect: Blunted Thought Process: Disorganized and Slowed Thinking Thought Content: Disorganized and Preoccupation Hallucinations: Auditory Insight: Poor Judgement: Poor Vital Signs (Past 24 Hours) Last Vital Signs Temp 36.1 C L 10/18/24 06:00 Pulse 75 10/18/24 06:00 Resp 18 10/18/24 06:00 BP 135/83 10/18/24 06:00 Pulse Ox 95 10/18/24 06:00 O2 Del Method Room Air 10/18/24 06:00 Results & Data ([facility]) Laboratory Results Laboratory Results - last 24 hr 10/18/24 06:17 POC Glucose 110 H Current Inpatient Medications Current Inpatient Medications: Current Inpatient Medications Acetaminophen (Acetaminophen 325 Mg Tab) 650 mg PO Q4H PRN PRN Reason: Headache or Minor Fever Stop: 11/02/24 14:11 Last Admin: 10/04/24 21:24 Dose: 650 mg Al Hydrox/Mg Hydrox/Simethicone (Aluminum/Magnesium Susp 30 Ml Udc) 30 ml PO Q4H PRN PRN Reason: GI Upset Stop: 11/02/24 14:11 Atorvastatin Calcium (Atorvastatin 40 Mg Tab) 40 mg PO HS [facility] Stop: 11/02/24 21:59 Last Admin: 10/17/24 20:32 Dose: 40 mg Bismuth Subsalicylate (Bismuth Subsalicylate 262 Mg Chew) 2 tab PO Q30M PRN PRN Reason: Loose Stool/Diarrhea Stop: 11/02/24 14:11 Clozapine (Clozapine 100 Mg Tab) 500 mg PO QPM [facility] Stop: 11/13/24 20:59 Last Admin: 10/17/24 20:30 Dose: 500 mg Cyanocobalamin (Cyanocobalamin (B-12) 100 Mcg Tablet) 100 mcg PO QAM [facility] Stop: 11/02/24 08:59 Last Admin: 10/18/24 08:46 Dose: 100 mcg Docusate Sodium (Docusate Sodium 100 Mg Cap) 200 mg PO BID [facility] Stop: 11/13/24 20:59 Last Admin: 10/18/24 08:48 Dose: 200 mg Glycopyrrolate (Glycopyrrolate 1 Mg Tab) 1 mg PO BID [facility] Stop: 11/13/24 20:59 Last Admin: 10/18/24 08:47 Dose: 1 mg Haloperidol (Haloperidol 5 Mg Tab) 5 mg PO BID PRN PRN Reason: psychosis Stop: 11/02/24 09:02 Last Admin: 10/02/24 12:10 Dose: 5 mg Haloperidol (Haloperidol 5 Mg Tab) 5 mg PO BID [facility] Stop: 10/27/24 20:59 Last Admin: 10/18/24 08:50 Dose: 5 mg Haloperidol Lactate (Haloperidol Lactate 5 Mg/Ml 1 Ml Vial) 5 mg IM BID PRN PRN Reason: agitation Stop: 11/02/24 15:34 Hydroxyzine HCl (Hydroxyzine Hcl 25 Mg Tab) 50 mg PO HSZ PRN PRN Reason: Insomnia Stop: 11/02/24 14:11 Last Admin: 09/28/24 01:21 Dose: 50 mg Hydroxyzine HCl (Hydroxyzine Hcl 25 Mg Tab) 25 mg PO Q4H PRN PRN Reason: Anxiety Stop: 11/02/24 14:11 Levothyroxine Sodium (Levothyroxine Sodium 25 Mcg Tablet) 25 mcg PO DAILYBB [facility] Stop: 11/02/24 07:59 Last Admin: 10/18/24 08:07 Dose: 25 mcg Lisinopril (Lisinopril 20 Mg Tab) 20 mg PO DAILY [facility] Stop: 11/02/24 08:59 Last Admin: 10/18/24 08:47 Dose: 20 mg Lorazepam (Lorazepam 2 Mg/1 Ml Vial) 1 mg IM BID PRN PRN Reason: Agitation Stop: 11/02/24 15:34 Lorazepam (Lorazepam 1 Mg Tab) 1 mg PO DAILY PRN PRN Reason: restlessness Stop: 11/02/24 02:10 Last Admin: 09/25/24 07:46 Dose: 1 mg Lorazepam (Lorazepam 1 Mg Tab) 1 mg PO HS PRN PRN Reason: insomnia Stop: 11/02/24 16:13 Magnesium Hydroxide (Magnesium Hydroxide Susp 30 Ml Udc) 30 ml PO DAILY PRN PRN Reason: Constipation Stop: 11/02/24 14:11 Last Admin: 10/02/24 21:05 Dose: 30 ml Melatonin (Melatonin 3 Mg Tab) 3 mg PO HS [facility] Stop: 11/03/24 21:59 Last Admin: 10/17/24 20:33 Dose: 3 mg Meloxicam (Meloxicam 7.5 Mg Tab) 15 mg PO DAILY [facility] Stop: 11/02/24 08:59 Last Admin: 10/18/24 08:46 Dose: 15 mg Memantine (Memantine Hcl 10 Mg Tab) 10 mg PO QAM [facility] Stop: 11/14/24 08:59 Last Admin: 10/18/24 08:46 Dose: 10 mg Metformin HCl (Metformin Hcl 500 Mg Tab) 1,000 mg PO BID17 [facility] Stop: 11/02/24 16:59 Last Admin: 10/18/24 08:46 Dose: 1,000 mg Miscellaneous (Remove Nicoderm Patch) 1 each N/A 2100 [facility] Stop: 11/02/24 20:59 Last Admin: 10/17/24 20:32 Dose: 1 each Miscellaneous (Remove Nicoderm Patch) 1 each N/A DAILY@0859 [facility] Stop: 11/14/24 08:58 Last Admin: 10/18/24 08:55 Dose: 1 each Multivitamins (Multivitamin Tab) 1 tab PO DAILY [facility] Stop: 11/02/24 08:59 Last Admin: 10/18/24 08:47 Dose: 1 tab Nicotine (Nicotine 14 Mg/24 Hr Patch) 1 patch TD QAM [facility] Stop: 11/14/24 08:59 Last Admin: 10/18/24 08:55 Dose: 1 patch Nicotine Polacrilex (Nicotine Polacrilex 2 Mg Gum) 1 piece MT Q2H PRN PRN Reason: smoking cessation Stop: 11/02/24 15:22 Last Admin: 09/29/24 10:35 Dose: 1 piece Paroxetine HCl (Paroxetine Hcl 10 Mg Tab) 30 mg PO DAILY [facility] Stop: 10/25/24 08:59 Last Admin: 10/18/24 08:45 Dose: 30 mg Phenylephrine HCl (Phenylephrine 0.25% Supp 1 Ea) 1 supp AL DAILY PRN PRN Reason: Hemorrhoids Stop: 11/04/24 15:02 Polyethylene Glycol (Polyethylene (Miralax) 17 Gm Pack) 17 gm PO Q48H [facility] Stop: 11/13/24 08:59 Last Admin: 10/18/24 08:55 Dose: Not Given Sennosides (Senna 8.6 Mg Tab) 8.6 mg PO Q2D PRN PRN Reason: constipation Stop: 11/02/24 15:30 Sodium Chloride (Sodium Chloride 0.65% Na Soln 45 Ml ([place])) 1 - 2 sprays NA PRN PRN PRN Reason: Nasal Dryness/Congestion Stop: 11/02/24 14:11 Vitamin D (Cholecalciferol 25 Mcg (1000 Units) Tab) 50 mcg PO QAM [facility] Stop: 11/02/24 08:59 Last Admin: 10/18/24 08:47 Dose: 50 mcg Mental Health & Subst Abuse Tx Psychiatrist Name of Psychiatrist: Haley Mazariegos (on maternity leave) will be seen by Dr. Juarez at [facility] Psychiatrist's Date Of Appointment With Psychiatric Provider: 09/27/24 Time of Appointment with Psychiatrist: 1:45PM Psychiatric Appointment Comment: [address] [place] [id number] [facility] Name of Medical Assembly: [facility] unit adult protective caseworker Phone Number for Medical Assembly: [phone] Post Discharge Appointments Primary Care Physician Name Of Family Doctor/PCP: Dr. Deonte Martinez - [address] [id number] Primary Care Date of Future Appointment with PCP: 09/28/24 Time of Appointment with PCP: 8AM Provider Appointment Comment: Arrive @ 745AM, will be seen by ROSE Espinal. Check in via kiosk. Bring meds. Contact Information Discharge Discharge Address: [facility] [address] [place] [id number] (1) Psychosis Psychosis type: schizophrenia Schizophrenia type: paranoid schizophrenia Qualified Code(s): F20.0 - Paranoid schizophrenia
--- NOTE | 2024-10-19 14:03 | Psychiatric Progress Note ---
Date of Service October 19, 2024 Impression / Recommendations Impression REBA KELLY is a 69-year-old man who currently lives [facility], has a history of schizophrenia, recent subdural hematoma, HTN, Type II diabetes, HLD, BPH and was admitted on 09/04/24 14:12 on a 303 involuntary commitment for psychosis and disorganization and now on a 304 commitment granted on 09/23/2024. Diagnosis: Schizophrenia vs Schizoaffective Disorder Bipolar Type. s/p TBI with subdural hematoma (resolved) with low suspicion for confusion at this time. Pt had been stable on clozapine for many years but seems to have decompensated in the setting of his recent fall. A: Pt signed POA paper yesterday. Sialorrhea improving. Overall less dysarthric. No recent falls or incontinence. Presents with a bright affect. On-going psychosis and likely at baseline. Social work is coordinating with POA to retrieve bank statements for pt's acceptance into snf. MNPR due to psychosis, past disinhibited behaviors Overall, I spent a total of 35 minutes on this case including meeting with the patient, reviewing the chart, nursing report, orders, evidence base review and documentation. (1) Psychosis: (2) Schizophrenia: (3) Auditory hallucinations: (4) Sialorrhea: (5) Hypersexuality: (6) Hyperlipidemia: (7) Type 2 diabetes mellitus: (8) Hypertension: (9) Insomnia: Plan 10/19/2024: Continue medications and treatment plan 10/18/2024: Continue medications and treatment plan 10/17/2024: Continue medications and treatment plan 10/16/2024: Biotene mouthwash twice daily after breakfast and lunch 10/15/24: Continue medications and treatment plan 10/14/24: Clozapine 500mg to QPM dosing Increase Memantine to 10mg daily Decrease glycopyrolate to 1mg BID Increase colace to 200mg BID 10/13/24: Continue medications and treatment plan 10/12/24: Miralax Q2D dosing 10/11/24: Start Memantine 5mg daily 10/10/2024: Continue medications and treatment plan 10/09/2024: Decrease clozapine to 500mg HS Repeat clozapine level 10/08/2024: Continue medications and treatment plan 10/07/2024: -Continue current medications and tx plan 10/06/2024: -Continue current medications and tx plan 10/05/2024: -Increase clozapine to 600mg HS 10/04/2024: -Discontinue Depakote -Schedule melatonin 3mg HS 10/03/2024: -Continue current medications and tx plan. 10/02/2024: -Taper Depakote to 500mg HS 10/01/24 Continue medication at current doses. Continue disposition planning. 09/30/24: Increase Glycopyrrolate to 2mg bid for hypersalivation. Continue other medication at current doses. 09/29/24: Continue medication regimen. Scheduled for evaluation by the Office of Aging on . 09/28/24: Add Melatonin 3mg qhs. Continue other medication at current doses. 09/27/24: Increase Haldol to 5mg bid Continue other medication at current doses. 09/26/24 Continue medication at current doses. Will review indication for Paxil. Continue orthostatic vital sign monitoring bid (130s-160s/80s today) along with close monitoring given fall risk. 09/25/2024: -Start haldol 2.5mg BID 09/24/2024: -Decrease Paxil to 30mg daily 09/23/2024: -Increase clozapine to 500mg HS 09/22/2024: -Increase Depakote ER to 1000mg HS -Discontinue Ativan HS scheduled, adjust to prn in case contributing to falls -Orthostatic vitals BID -PT consult 09/21/2024: Clozapine level tomorrow AM 09/20/2024: Increase clozapine to 450mg HS. 09/19/2024: Increase Paxil to 30mg BID 09/18/2024: Continue medications and treatment plan 09/17/2024 Discontinue Haloperidol 09/16/2024: Clozapine to 400 mg at bedtime and discontinue a.m. dose 09/15/2024: Increase clozapine to 50 mg in the morning. Increase glycopyrrolate to 1.5 mg twice daily. 09/14/2024: Start Clozapine 25 mg in the morning 09/13/24: Continue medications and treatment plan 09/12/2024: Decrease clozapine to 350 mg at bedtime Start glycopyrrolate 1 mg twice daily Decrease haloperidol to 2.5 mg twice daily 09/11/2024: -Increase clozapine to 400mg HS 09/10/2024: -Increase clozapine to 350mg HS 09/09/2024: -Increase haldol back to 2.5mg TID -Increase ipratropium bromide 0.06% under the tongue to 3 sprays TID for sialorrhea -Increase clozapine to 300mg HS 09/08/2024: -Decrease haldol to 2.5mg HS -Discontinue topiramate 09/07/2024: -Decrease haldol to 2.5mg BID -Increase clozapine to 250mg HS 09/06/2024: -Increase Depakote ER to 500mg -Increase ipratropium bromide 0.06% under the tongue to 2 sprays TID -taper Topiramate to 25mg HS to reduce polypharmacy burden 09/05/2024: The patient was admitted to the [facility] ([facility]) on q15 min checks (behavioral with suicide precautions) for safety. The patient will participate in group, recreational, and milieu therapies and will be offered additional individual and family sessions as clinically appropriate. -Continue psychiatric medications: * Clozapine 200mg HS (consider further dose titration) * Topiramate 25mg BID * Haldol 2.5mg TID * Ativan 1mg HS (goal to taper as sleep improves and stabilizes) -Adjust: * Paxil from 30mg BID to 30mg daily -Start: * Depakote ER 250mg HS -Clozapine level, fasting lipid panel, HBA1c tomorrow AM -Repeat EKG given his age and now on multiple medications that can impact QTc interval Inventory Assets Strengths: supportive living environment, cooperative Needs: safety and stabilization, medication adjustment, additional coping skills, increased outpatient services Suicide Risk Level Suicide Risk Level: Moderate (q15 min suicide checks) (denies SI but with periods of hallucinations and delusions which can negatively impacting his mood ) Suicide Risk Level Comments: Risk Factors Assessment Male: Yes : Yes Do You Have Access To A Gun?: No Health Problems: Yes Mental Health Diagnoses: Yes Substance Use Disorders: No Previous Attempt: No Family History of Suicide: No Previous Psychiatric Hospitalization: Yes Hopelessness: No Protective Factors Assessment Jew Beliefs: Yes Good Rapport with Provider: Yes Interval History Identifying Information REBA KELLY is a 69-year-old man who currently lives [facility], has a history of schizophrenia, recent subdural hematoma, HTN, Type II diabetes, HLD, BPH and was admitted on 09/04/24 14:12 on a 304 involuntary commitment for psychosis and disorganization. Chief Complaint Psychosis, AMS Review of Systems Sleep Information Total Hours of Sleep: 8.5 Sleep Comments: Incontinent of urine Meal Information Percent Meal Consumed - Breakfast: 75 Percent Meal Consumed - Lunch: 75 Percent Meal Consumed - Dinner: 75 Nutrition Comment: Patient ate some carrots and then states, "I'm not hungry." Subjective Subjective Patient was seen & assessed and interval progress reviewed with treatment team nursing and social work Slept well overnight. Had bowel movement yesterday. Isolative to her room. Niece came and signed a power of consumer attorney. On interview is alert and oriented to himself, location, brother, niece, recent POA. Reports enjoying the visit from his niece. Does not remember his bank account number to retrieve past being statements. Reports drooling has improved and is seen walking around the unit without a rag. Reports continued voices. Physical Exam Mental Examination Appearance: Disheveled Eye Contact: Maintains Eye Contact Motor Behavior: Slowed Speech: Soft and Disorganized Mood: Calm Affect: Blunted Thought Process: Disorganized and Slowed Thinking Thought Content: Disorganized and Preoccupation Hallucinations: Auditory Insight: Poor Judgement: Poor Vital Signs (Past 24 Hours) Last Vital Signs Temp 36.6 C 10/19/24 06:22 Pulse 89 10/18/24 21:17 Resp 17 10/19/24 06:22 BP 138/88 10/18/24 21:17 Pulse Ox 96 10/19/24 06:22 O2 Del Method Room Air 10/19/24 06:22 Results & Data ([facility]) Laboratory Results Laboratory Results - last 24 hr 10/19/24 08:16 POC Glucose 129 H Current Inpatient Medications Current Inpatient Medications: Current Inpatient Medications Acetaminophen (Acetaminophen 325 Mg Tab) 650 mg PO Q4H PRN PRN Reason: Headache or Minor Fever Stop: 11/02/24 14:11 Last Admin: 10/18/24 16:59 Dose: 650 mg Al Hydrox/Mg Hydrox/Simethicone (Aluminum/Magnesium Susp 30 Ml Udc) 30 ml PO Q4H PRN PRN Reason: GI Upset Stop: 11/02/24 14:11 Atorvastatin Calcium (Atorvastatin 40 Mg Tab) 40 mg PO HS BEATRICE Stop: 11/02/24 21:59 Last Admin: 10/18/24 21:09 Dose: 40 mg Bismuth Subsalicylate (Bismuth Subsalicylate 262 Mg Chew) 2 tab PO Q30M PRN PRN Reason: Loose Stool/Diarrhea Stop: 11/02/24 14:11 Clozapine (Clozapine 100 Mg Tab) 500 mg PO QPM BEATRICE Stop: 11/13/24 20:59 Last Admin: 10/18/24 21:09 Dose: 500 mg Cyanocobalamin (Cyanocobalamin (B-12) 100 Mcg Tablet) 100 mcg PO QAM BEATRICE Stop: 11/02/24 08:59 Last Admin: 10/19/24 08:18 Dose: 100 mcg Docusate Sodium (Docusate Sodium 100 Mg Cap) 200 mg PO BID BEATRICE Stop: 11/13/24 20:59 Last Admin: 10/19/24 08:19 Dose: 200 mg Glycopyrrolate (Glycopyrrolate 1 Mg Tab) 1 mg PO BID BEATRICE Stop: 11/13/24 20:59 Last Admin: 10/19/24 08:18 Dose: 1 mg Haloperidol (Haloperidol 5 Mg Tab) 5 mg PO BID PRN PRN Reason: psychosis Stop: 11/02/24 09:02 Last Admin: 10/02/24 12:10 Dose: 5 mg Haloperidol (Haloperidol 5 Mg Tab) 5 mg PO BID [facility] Stop: 10/27/24 20:59 Last Admin: 10/19/24 08:21 Dose: 5 mg Haloperidol Lactate (Haloperidol Lactate 5 Mg/Ml 1 Ml Vial) 5 mg IM BID PRN PRN Reason: agitation Stop: 11/02/24 15:34 Hydroxyzine HCl (Hydroxyzine Hcl 25 Mg Tab) 50 mg PO HSZ PRN PRN Reason: Insomnia Stop: 11/02/24 14:11 Last Admin: 09/28/24 01:21 Dose: 50 mg Hydroxyzine HCl (Hydroxyzine Hcl 25 Mg Tab) 25 mg PO Q4H PRN PRN Reason: Anxiety Stop: 11/02/24 14:11 Levothyroxine Sodium (Levothyroxine Sodium 25 Mcg Tablet) 25 mcg PO DAILYBB BEATRICE Stop: 11/02/24 07:59 Last Admin: 10/19/24 07:47 Dose: 25 mcg Lisinopril (Lisinopril 20 Mg Tab) 20 mg PO DAILY BEATRICE Stop: 11/02/24 08:59 Last Admin: 10/19/24 08:21 Dose: 20 mg Lorazepam (Lorazepam 2 Mg/1 Ml Vial) 1 mg IM BID PRN PRN Reason: Agitation Stop: 11/02/24 15:34 Lorazepam (Lorazepam 1 Mg Tab) 1 mg PO DAILY PRN PRN Reason: restlessness Stop: 11/02/24 02:10 Last Admin: 09/25/24 07:46 Dose: 1 mg Lorazepam (Lorazepam 1 Mg Tab) 1 mg PO HS PRN PRN Reason: insomnia Stop: 11/02/24 16:13 Magnesium Hydroxide (Magnesium Hydroxide Susp 30 Ml Udc) 30 ml PO DAILY PRN PRN Reason: Constipation Stop: 11/02/24 14:11 Last Admin: 10/02/24 21:05 Dose: 30 ml Melatonin (Melatonin 3 Mg Tab) 3 mg PO HS BEATRICE Stop: 11/03/24 21:59 Last Admin: 10/18/24 21:08 Dose: 3 mg Meloxicam (Meloxicam 7.5 Mg Tab) 15 mg PO DAILY [facility] Stop: 11/02/24 08:59 Last Admin: 10/19/24 08:20 Dose: 15 mg Memantine (Memantine Hcl 10 Mg Tab) 10 mg PO QAM [facility] Stop: 11/14/24 08:59 Last Admin: 10/19/24 08:21 Dose: 10 mg Metformin HCl (Metformin Hcl 500 Mg Tab) 1,000 mg PO BID17 [facility] Stop: 11/02/24 16:59 Last Admin: 10/19/24 08:21 Dose: 1,000 mg Miscellaneous (Remove Nicoderm Patch) 1 each N/A 2100 [facility] Stop: 11/02/24 20:59 Last Admin: 10/18/24 21:20 Dose: 1 each Miscellaneous (Remove Nicoderm Patch) 1 each N/A DAILY@0859 [facility] Stop: 11/14/24 08:58 Last Admin: 10/18/24 21:21 Dose: 1 each Multivitamins (Multivitamin Tab) 1 tab PO DAILY [facility] Stop: 11/02/24 08:59 Last Admin: 10/19/24 08:21 Dose: 1 tab Nicotine (Nicotine 14 Mg/24 Hr Patch) 1 patch TD QAM [facility] Stop: 11/14/24 08:59 Last Admin: 10/19/24 08:22 Dose: 1 patch Nicotine Polacrilex (Nicotine Polacrilex 2 Mg Gum) 1 piece MT Q2H PRN PRN Reason: smoking cessation Stop: 11/02/24 15:22 Last Admin: 09/29/24 10:35 Dose: 1 piece Paroxetine HCl (Paroxetine Hcl 10 Mg Tab) 30 mg PO DAILY BEATRICE Stop: 10/25/24 08:59 Last Admin: 10/19/24 08:20 Dose: 30 mg Phenylephrine HCl (Phenylephrine 0.25% Supp 1 Ea) 1 supp MO DAILY PRN PRN Reason: Hemorrhoids Stop: 11/04/24 15:02 Polyethylene Glycol (Polyethylene (Miralax) 17 Gm Pack) 17 gm PO Q48H BEATRICE Stop: 11/13/24 08:59 Last Admin: 10/19/24 08:22 Dose: 17 gm Sennosides (Senna 8.6 Mg Tab) 8.6 mg PO Q2D PRN PRN Reason: constipation Stop: 11/02/24 15:30 Sodium Chloride (Sodium Chloride 0.65% Na Soln 45 Ml ([place])) 1 - 2 sprays NA PRN PRN PRN Reason: Nasal Dryness/Congestion Stop: 11/02/24 14:11 Vitamin D (Cholecalciferol 25 Mcg (1000 Units) Tab) 50 mcg PO QAM BEATRICE Stop: 11/02/24 08:59 Last Admin: 10/19/24 08:18 Dose: 50 mcg Mental Health & Subst Abuse Tx Psychiatrist Name of Psychiatrist: Haley Mazariegos (on maternity leave) will be seen by Dr. 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 Deonte Martinez - [address] [place] [address] Primary Care Date of Future Appointment with PCP: 09/28/24 Time of Appointment with PCP: 8AM Provider Appointment Comment: Arrive @ 745AM, will be seen by ROSE Espinal. Check in via [employer]. [employer] meds. Contact Information Discharge Discharge Address: [facility] [address] [id number] (1) Psychosis Psychosis type: schizophrenia Schizophrenia type: paranoid schizophrenia Qualified Code(s): F20.0 - Paranoid schizophrenia
--- NOTE | 2024-10-20 08:36 | Psychiatric Progress Note ---
Date of Service October 20, 2024 Impression / Recommendations Impression REBA KELLY is a 69-year-old man who currently lives [facility], has a history of schizophrenia, recent subdural hematoma, HTN, Type II diabetes, HLD, BPH and was admitted on 09/04/24 14:12 on a 303 involuntary commitment for psychosis and disorganization and now on a 304 commitment granted on 09/23/2024. Diagnosis: Schizophrenia vs Schizoaffective Disorder Bipolar Type. s/p TBI with subdural hematoma (resolved) with low suspicion for confusion at this time. Pt had been stable on clozapine for many years but seems to have decompensated in the setting of his recent fall. A: Mood stable today, tolerating medications without side effects. Some urinary incontinence this morning, suspect due to increased fluid intake overnight. UA ordered to rule out infectious cause. Has been on clozapine for many years so ANC monthly and recent draws stable after dose increases so will return to monthly checks. No current housing, shelter bedsearch ongoing. [facility]PR due to psychosis, past disinhibited behaviors Overall, I spent a total of 36 minutes on this case including meeting with the patient, reviewing the chart, nursing report, orders, and documentation. (1) Psychosis: (2) Schizophrenia: (3) Auditory hallucinations: (4) Sialorrhea: (5) Hypersexuality: (6) Hyperlipidemia: (7) Type 2 diabetes mellitus: (8) Hypertension: (9) Insomnia: Plan 10/20/2024: Continue current medications and treatment plan. 10/19/2024: Continue medications and treatment plan 10/18/2024: Continue medications and treatment plan 10/17/2024: Continue medications and treatment plan 10/16/2024: Biotene mouthwash twice daily after breakfast and lunch 10/15/24: Continue medications and treatment plan 10/14/24: Clozapine 500mg to QPM dosing Increase Memantine to 10mg daily Decrease glycopyrolate to 1mg BID Increase colace to 200mg BID 10/13/24: Continue medications and treatment plan 10/12/24: Miralax Q2D dosing 10/11/24: Start Memantine 5mg daily 10/10/2024: Continue medications and treatment plan 10/09/2024: Decrease clozapine to 500mg HS Repeat clozapine level 10/08/2024: Continue medications and treatment plan 10/07/2024: -Continue current medications and tx plan 10/06/2024: -Continue current medications and tx plan 10/05/2024: -Increase clozapine to 600mg HS 10/04/2024: -Discontinue Depakote -Schedule melatonin 3mg HS 10/03/2024: -Continue current medications and tx plan. 10/02/2024: -Taper Depakote to 500mg HS 10/01/24 Continue medication at current doses. Continue disposition planning. 09/30/24: Increase Glycopyrrolate to 2mg bid for hypersalivation. Continue other medication at current doses. 09/29/24: Continue medication regimen. Scheduled for evaluation by the Office of Aging on . 09/28/24: Add Melatonin 3mg qhs. Continue other medication at current doses. 09/27/24: Increase Haldol to 5mg bid Continue other medication at current doses. 09/26/24 Continue medication at current doses. Will review indication for Paxil. Continue orthostatic vital sign monitoring bid (130s-160s/80s today) along with close monitoring given fall risk. 09/25/2024: -Start haldol 2.5mg BID 09/24/2024: -Decrease Paxil to 30mg daily 09/23/2024: -Increase clozapine to 500mg HS 09/22/2024: -Increase Depakote ER to 1000mg HS -Discontinue Ativan HS scheduled, adjust to prn in case contributing to falls -Orthostatic vitals BID -PT consult 09/21/2024: Clozapine level tomorrow AM 09/20/2024: Increase clozapine to 450mg HS. 09/19/2024: Increase Paxil to 30mg BID 09/18/2024: Continue medications and treatment plan 09/17/2024 Discontinue Haloperidol 09/16/2024: Clozapine to 400 mg at bedtime and discontinue a.m. dose 09/15/2024: Increase clozapine to 50 mg in the morning. Increase glycopyrrolate to 1.5 mg twice daily. 09/14/2024: Start Clozapine 25 mg in the morning 09/13/24: Continue medications and treatment plan 09/12/2024: Decrease clozapine to 350 mg at bedtime Start glycopyrrolate 1 mg twice daily Decrease haloperidol to 2.5 mg twice daily 09/11/2024: -Increase clozapine to 400mg HS 09/10/2024: -Increase clozapine to 350mg HS 09/09/2024: -Increase haldol back to 2.5mg TID -Increase ipratropium bromide 0.06% under the tongue to 3 sprays TID for sialorrhea -Increase clozapine to 300mg HS 09/08/2024: -Decrease haldol to 2.5mg HS -Discontinue topiramate 09/07/2024: -Decrease haldol to 2.5mg BID -Increase clozapine to 250mg HS 09/06/2024: -Increase Depakote ER to 500mg -Increase ipratropium bromide 0.06% under the tongue to 2 sprays TID -taper Topiramate to 25mg HS to reduce polypharmacy burden 09/05/2024: The patient was admitted to the [facility] ([facility]) on q15 min checks (behavioral with suicide precautions) for safety. The patient will participate in group, recreational, and milieu therapies and will be offered additional individual and family sessions as clinically appropriate. -Continue psychiatric medications: * Clozapine 200mg HS (consider further dose titration) * Topiramate 25mg BID * Haldol 2.5mg TID * Ativan 1mg HS (goal to taper as sleep improves and stabilizes) -Adjust: * Paxil from 30mg BID to 30mg daily -Start: * Depakote ER 250mg HS -Clozapine level, fasting lipid panel, HBA1c tomorrow AM -Repeat EKG given his age and now on multiple medications that can impact QTc in terval Inventory Assets Strengths: supportive living environment, cooperative Needs: safety and stabilization, medication adjustment, additional coping skills, increased outpatient services Suicide Risk Level Suicide Risk Level: Moderate (q15 min suicide checks) (denies SI but with periods of hallucinations and delusions which can negatively impacting his mood ) Suicide Risk Level Comments: Risk Factors Assessment Male: Yes : Yes Do You Have Access To A Gun?: No Health Problems: Yes Mental Health Diagnoses: Yes Substance Use Disorders: No Previous Attempt: No Family History of Suicide: No Previous Psychiatric Hospitalization: Yes Hopelessness: No Protective Factors Assessment Orthodox Beliefs: Yes Good Rapport with Provider: Yes Interval History Identifying Information REBA KELLY is a 69-year-old man who currently lives [facility], has a history of schizophrenia, recent subdural hematoma, HTN, Type II diabetes, HLD, BPH and was admitted on 09/04/24 14:12 on a 304 involuntary commitment for psychosis and disorganization. Chief Complaint "Doing just fine". Review of Systems Sleep Information Total Hours of Sleep: 9.25 Sleep Comments: Incontinent of urine Meal Information Percent Meal Consumed - Breakfast: 75 Percent Meal Consumed - Lunch: 75 Percent Meal Consumed - Dinner: 30 Nutrition Comment: Subjective Subjective Patient was seen & assessed and interval progress reviewed with treatment team. Went outside yesterday. Last evening was drinking a lot of fluids and then incontinent of urine this morning. Today reports good mood and laughs intermittently while I'm talking to him but hard to understand what he's saying. Continues to report poor sleep. Denies any medication side effects. Physical Exam Vital Signs (Past 24 Hours) Last Vital Signs Temp 37.3 C 10/20/24 06:17 Pulse 76 10/20/24 06:17 Resp 20 10/20/24 06:17 BP 138/80 10/20/24 06:20 Pulse Ox 97 10/20/24 06:17 O2 Del Method Room Air 10/20/24 06:17 Results & Data ([facility]) Laboratory Results Laboratory Results - last 24 hr 10/20/24 06:20 POC Glucose 109 H Current Inpatient Medications Current Inpatient Medications: Current Inpatient Medications Acetaminophen (Acetaminophen 325 Mg Tab) 650 mg PO Q4H PRN PRN Reason: Headache or Minor Fever Stop: 11/02/24 14:11 Last Admin: 10/18/24 16:59 Dose: 650 mg Al Hydrox/Mg Hydrox/Simethicone (Aluminum/Magnesium Susp 30 Ml Udc) 30 ml PO Q4H PRN PRN Reason: GI Upset Stop: 11/02/24 14:11 Atorvastatin Calcium (Atorvastatin 40 Mg Tab) 40 mg PO HS BEATRICE Stop: 11/02/24 21:59 Last Admin: 10/19/24 20:39 Dose: 40 mg Bismuth Subsalicylate (Bismuth Subsalicylate 262 Mg Chew) 2 tab PO Q30M PRN PRN Reason: Loose Stool/Diarrhea Stop: 11/02/24 14:11 Clozapine (Clozapine 100 Mg Tab) 500 mg PO QPM BEATRICE Stop: 11/13/24 20:59 Last Admin: 10/19/24 20:39 Dose: 500 mg Cyanocobalamin (Cyanocobalamin (B-12) 100 Mcg Tablet) 100 mcg PO QAM [facility] Stop: 11/02/24 08:59 Last Admin: 10/19/24 08:18 Dose: 100 mcg Docusate Sodium (Docusate Sodium 100 Mg Cap) 200 mg PO BID BEATRICE Stop: 11/13/24 20:59 Last Admin: 10/19/24 20:39 Dose: 200 mg Glycopyrrolate (Glycopyrrolate 1 Mg Tab) 1 mg PO BID BEATRICE Stop: 11/13/24 20:59 Last Admin: 10/19/24 20:38 Dose: 1 mg Haloperidol (Haloperidol 5 Mg Tab) 5 mg PO BID PRN PRN Reason: psychosis Stop: 11/02/24 09:02 Last Admin: 10/02/24 12:10 Dose: 5 mg Haloperidol (Haloperidol 5 Mg Tab) 5 mg PO BID BEATRICE Stop: 10/27/24 20:59 Last Admin: 10/19/24 20:39 Dose: 5 mg Haloperidol Lactate (Haloperidol Lactate 5 Mg/Ml 1 Ml Vial) 5 mg IM BID PRN PRN Reason: agitation Stop: 11/02/24 15:34 Hydroxyzine HCl (Hydroxyzine Hcl 25 Mg Tab) 50 mg PO HSZ PRN PRN Reason: Insomnia Stop: 11/02/24 14:11 Last Admin: 09/28/24 01:21 Dose: 50 mg Hydroxyzine HCl (Hydroxyzine Hcl 25 Mg Tab) 25 mg PO Q4H PRN PRN Reason: Anxiety Stop: 11/02/24 14:11 Levothyroxine Sodium (Levothyroxine Sodium 25 Mcg Tablet) 25 mcg PO DAILYBB [facility] Stop: 11/02/24 07:59 Last Admin: 10/19/24 07:47 Dose: 25 mcg Lisinopril (Lisinopril 20 Mg Tab) 20 mg PO DAILY BEATRICE Stop: 11/02/24 08:59 Last Admin: 10/19/24 08:21 Dose: 20 mg Lorazepam (Lorazepam 2 Mg/1 Ml Vial) 1 mg IM BID PRN PRN Reason: Agitation Stop: 11/02/24 15:34 Lorazepam (Lorazepam 1 Mg Tab) 1 mg PO DAILY PRN PRN Reason: restlessness Stop: 11/02/24 02:10 Last Admin: 09/25/24 07:46 Dose: 1 mg Lorazepam (Lorazepam 1 Mg Tab) 1 mg PO HS PRN PRN Reason: insomnia Stop: 11/02/24 16:13 Magnesium Hydroxide (Magnesium Hydroxide Susp 30 Ml Udc) 30 ml PO DAILY PRN PRN Reason: Constipation Stop: 11/02/24 14:11 Last Admin: 10/02/24 21:05 Dose: 30 ml Melatonin (Melatonin 3 Mg Tab) 3 mg PO HS [facility] Stop: 11/03/24 21:59 Last Admin: 10/19/24 20:41 Dose: 3 mg Meloxicam (Meloxicam 7.5 Mg Tab) 15 mg PO DAILY [facility] Stop: 11/02/24 08:59 Last Admin: 10/19/24 08:20 Dose: 15 mg Memantine (Memantine Hcl 10 Mg Tab) 10 mg PO QAM [facility] Stop: 11/14/24 08:59 Last Admin: 10/19/24 08:21 Dose: 10 mg Metformin HCl (Metformin Hcl 500 Mg Tab) 1,000 mg PO BID17 [facility] Stop: 11/02/24 16:59 Last Admin: 10/19/24 17:20 Dose: 1,000 mg Miscellaneous (Remove Nicoderm Patch) 1 each N/A 2100 [facility] Stop: 11/02/24 20:59 Last Admin: 10/19/24 20:39 Dose: 1 each Miscellaneous (Remove Nicoderm Patch) 1 each N/A DAILY@0859 [facility] Stop: 11/14/24 08:58 Last Admin: 10/18/24 21:21 Dose: 1 each Multivitamins (Multivitamin Tab) 1 tab PO DAILY [facility] Stop: 11/02/24 08:59 Last Admin: 10/19/24 08:21 Dose: 1 tab Nicotine (Nicotine 14 Mg/24 Hr Patch) 1 patch TD QAM [facility] Stop: 11/14/24 08:59 Last Admin: 10/19/24 08:22 Dose: 1 patch Nicotine Polacrilex (Nicotine Polacrilex 2 Mg Gum) 1 piece MT Q2H PRN PRN Reason: smoking cessation Stop: 11/02/24 15:22 Last Admin: 09/29/24 10:35 Dose: 1 piece Paroxetine HCl (Paroxetine Hcl 10 Mg Tab) 30 mg PO DAILY [facility] Stop: 10/25/24 08:59 Last Admin: 10/19/24 08:20 Dose: 30 mg Phenylephrine HCl (Phenylephrine 0.25% Supp 1 Ea) 1 supp TN DAILY PRN PRN Reason: Hemorrhoids Stop: 11/04/24 15:02 Polyethylene Glycol (Polyethylene (Miralax) 17 Gm Pack) 17 gm PO Q48H BEATRICE Stop: 11/13/24 08:59 Last Admin: 10/19/24 08:22 Dose: 17 gm Sennosides (Senna 8.6 Mg Tab) 8.6 mg PO Q2D PRN PRN Reason: constipation Stop: 11/02/24 15:30 Sodium Chloride (Sodium Chloride 0.65% Na Soln 45 Ml ([place])) 1 - 2 sprays NA PRN PRN PRN Reason: Nasal Dryness/Congestion Stop: 11/02/24 14:11 Vitamin D (Cholecalciferol 25 Mcg (1000 Units) Tab) 50 mcg PO QAM BEATRICE Stop: 11/02/24 08:59 Last Admin: 10/19/24 08:18 Dose: 50 mcg Mental Health & Subst Abuse Tx Psychiatrist Name of Psychiatrist: Haley Mazariegos (on maternity leave) will be seen by Dr. Juarez at [facility] Psychiatrist's Date Of Appointment With Psychiatric Provider: 09/27/24 Time of Appointment with Psychiatrist: 1:45PM Psychiatric Appointment Comment: [address] [place], [place] [id number] [employer]aming [employer] Operator Helper Name of Framing Mill Operator Helper: [facility] unit adult protective caseworker Phone Number for Framing Mill Operator Helper: [phone] Post Discharge Appointments Primary Care Physician Name Of Family Doctor/PCP: Dr. Deonte Martinez - [address] [place] [address] Primary Care Date of Future Appointment with PCP: 09/28/24 Time of Appointment with PCP: 8AM Provider Appointment Comment: Arrive @ 745AM, will be seen by ROSE Espinal. Check in via [employer]. [employer]ines. Contact Information Discharge Discharge Address: [address] [place] [id number] (1) Psychosis Psychosis type: schizophrenia Schizophrenia type: paranoid schizophrenia Qualified Code(s): F20.0 - Paranoid schizophrenia
[2024-10-21 08:01] LABS: Appearance Urine Clear (Clear); Glucose Urine UA Negative (Negative)
--- NOTE | 2024-10-21 08:28 | Psychiatric Progress Note ---
Date of Service October 21, 2024 Impression / Recommendations Impression REBA KELLY is a 69-year-old man who currently lives [facility], has a history of schizophrenia, recent subdural hematoma, HTN, Type II diabetes, HLD, BPH and was admitted on 09/04/24 14:12 on a 303 involuntary commitment for psychosis and disorganization and now on a 304 commitment granted on 09/23/2024. Diagnosis: Schizophrenia vs Schizoaffective Disorder Bipolar Type. s/p TBI with subdural hematoma (resolved) with low suspicion for confusion at this time. Pt had been stable on clozapine for many years but seems to have decompensated in the setting of his recent fall. A: Smiling, appropriate in interactions. UA normal, no signs of infection. No current housing, retirement bedsearch ongoing. MNPR due to psychosis, past disinhibited behaviors Overall, I spent a total of 28 minutes on this case including meeting with the patient, reviewing the chart, nursing report, orders, and documentation. (1) Psychosis: (2) Schizophrenia: (3) Auditory hallucinations: (4) Sialorrhea: (5) Hypersexuality: (6) Hyperlipidemia: (7) Type 2 diabetes mellitus: (8) Hypertension: (9) Insomnia: Plan 10/21/2024: Continue current medications and treatment plan. 10/20/2024: Continue current medications and treatment plan. 10/19/2024: Continue medications and treatment plan 10/18/2024: Continue medications and treatment plan 10/17/2024: Continue medications and treatment plan 10/16/2024: Biotene mouthwash twice daily after breakfast and lunch 10/15/24: Continue medications and treatment plan 10/14/24: Clozapine 500mg to QPM dosing Increase Memantine to 10mg daily Decrease glycopyrolate to 1mg BID Increase colace to 200mg BID 10/13/24: Continue medications and treatment plan 10/12/24: Miralax Q2D dosing 10/11/24: Start Memantine 5mg daily 10/10/2024: Continue medications and treatment plan 10/09/2024: Decrease clozapine to 500mg HS Repeat clozapine level 10/08/2024: Continue medications and treatment plan 10/07/2024: -Continue current medications and tx plan 10/06/2024: -Continue current medications and tx plan 10/05/2024: -Increase clozapine to 600mg HS 10/04/2024: -Discontinue Depakote -Schedule melatonin 3mg HS 10/03/2024: -Continue current medications and tx plan. 10/02/2024: -Taper Depakote to 500mg HS 10/01/24 Continue medication at current doses. Continue disposition planning. 09/30/24: Increase Glycopyrrolate to 2mg bid for hypersalivation. Continue other medication at current doses. 09/29/24: Continue medication regimen. Scheduled for evaluation by the Office of Aging on . 09/28/24: Add Melatonin 3mg qhs. Continue other medication at current doses. 09/27/24: Increase Haldol to 5mg bid Continue other medication at current doses. 09/26/24 Continue medication at current doses. Will review indication for Paxil. Continue orthostatic vital sign monitoring bid (130s-160s/80s today) along with close monitoring given fall risk. 09/25/2024: -Start haldol 2.5mg BID 09/24/2024: -Decrease Paxil to 30mg daily 09/23/2024: -Increase clozapine to 500mg HS 09/22/2024: -Increase Depakote ER to 1000mg HS -Discontinue Ativan HS scheduled, adjust to prn in case contributing to falls -Orthostatic vitals BID -PT consult 09/21/2024: Clozapine level tomorrow AM 09/20/2024: Increase clozapine to 450mg HS. 09/19/2024: Increase Paxil to 30mg BID 09/18/2024: Continue medications and treatment plan 09/17/2024 Discontinue Haloperidol 09/16/2024: Clozapine to 400 mg at bedtime and discontinue a.m. dose 09/15/2024: Increase clozapine to 50 mg in the morning. Increase glycopyrrolate to 1.5 mg twice daily. 09/14/2024: Start Clozapine 25 mg in the morning 09/13/24: Continue medications and treatment plan 09/12/2024: Decrease clozapine to 350 mg at bedtime Start glycopyrrolate 1 mg twice daily Decrease haloperidol to 2.5 mg twice daily 09/11/2024: -Increase clozapine to 400mg HS 09/10/2024: -Increase clozapine to 350mg HS 09/09/2024: -Increase haldol back to 2.5mg TID -Increase ipratropium bromide 0.06% under the tongue to 3 sprays TID for sialorrhea -Increase clozapine to 300mg HS 09/08/2024: -Decrease haldol to 2.5mg HS -Discontinue topiramate 09/07/2024: -Decrease haldol to 2.5mg BID -Increase clozapine to 250mg HS 09/06/2024: -Increase Depakote ER to 500mg -Increase ipratropium bromide 0.06% under the tongue to 2 sprays TID -taper Topiramate to 25mg HS to reduce polypharmacy burden 09/05/2024: The patient was admitted to the [facility] ([facility] unit) on q15 min checks (behavioral with suicide precautions) for safety. The patient will participate in group, recreational, and milieu therapies and will be offered additional individual and family sessions as clinically appropriate. -Continue psychiatric medications: * Clozapine 200mg HS (consider further dose titration) * Topiramate 25mg BID * Haldol 2.5mg TID * Ativan 1mg HS (goal to taper as sleep improves and stabilizes) -Adjust: * Paxil from 30mg BID to 30mg daily -Start: * Depakote ER 250mg HS -Clozapine level, fasting lipid panel, HBA1c tomorrow AM -Repeat EKG given his age and now on multiple medications that can impact QTc interval Inventory Assets Strengths: supportive living environment, cooperative Needs: safety and stabilization, medication adjustment, additional coping skills, increased outpatient services Suicide Risk Level Suicide Risk Level: Low (q15 min observation checks) (denies SI ) Suicide Risk Level Comments: Risk Factors Assessment Male: Yes : Yes Do You Have Access To A Gun?: No Health Problems: Yes Mental Health Diagnoses: Yes Substance Use Disorders: No Previous Attempt: No Family History of Suicide: No Previous Psychiatric Hospitalization: Yes Hopelessness: No Protective Factors Assessment [employer] Beliefs: Yes Good Rapport with Provider: Yes Interval History Identifying Information REBA KELLY is a 69-year-old man who currently lives [facility], has a history of schizophrenia, recent subdural hematoma, HTN, Type II diabetes, HLD, BPH and was admitted on 09/04/24 14:12 on a 304 involuntary commitment for psychosis and disorganization. Chief Complaint "Good". Review of Systems Sleep Information Total Hours of Sleep: 7.5 Sleep Comments: Meal Information Percent Meal Consumed - Breakfast: 100 Percent Meal Consumed - Lunch: 100 Percent Meal Consumed - Dinner: 100 Subjective Subjective Patient was seen & assessed and interval progress reviewed with nursing and social work. Was able to get a urine sample this morning. Eating his meals. Appropriate in interactions. Physical Exam Psychiatric Orientation: alert, oriented to person and oriented to place Apperance: appropriately dressed and + disheveled Eye Contact: good eye contact Motor Behavior: no abnormal motor movements Speech: + abnormal rate/rhythm/volume of speech (mumbled and soft) Affect: euthymic affect Mood: no depressed mood and no anxious mood Thought Process: + circumstantial thought process Thought Content: + preoccupation Suicidal Thoughts: denies suicidal thoughts Homicidal Thoughts: denies homicidal thoughts Hallucinations: + auditory hallucinations Insight: + limited insight Judgment: + limited judgement Vital Signs (Past 24 Hours) Last Vital Signs Temp 37.0 C 10/21/24 06:40 Pulse 111 H 10/21/24 06:40 Resp 18 10/21/24 06:40 BP 141/80 H 10/21/24 06:42 Pulse Ox 96 10/21/24 06:40 O2 Del Method Room Air 10/21/24 06:40 Results & Data ([facility]) Laboratory Results Laboratory Results - last 24 hr 10/21/24 10/21/24 06:16 07:30 POC Glucose 110 H Urine Color Yellow Urine Appearance Clear Urine pH 6.0 Ur Specific Ridge 1.014 Urine Protein Negative Urine Glucose (UA) Negative Urine Ketones Trace H Urine Blood Negative Urine Nitrite Negative Urine Bilirubin Negative Urine Urobilinogen Negative Ur Leukocyte Esterase Negative Urine Comment Current Inpatient Medications Current Inpatient Medications: Current Inpatient Medications Acetaminophen (Acetaminophen 325 Mg Tab) 650 mg PO Q4H PRN PRN Reason: Headache or Minor Fever Stop: 11/02/24 14:11 Last Admin: 10/18/24 16:59 Dose: 650 mg Al Hydrox/Mg Hydrox/Simethicone (Aluminum/Magnesium Susp 30 Ml Udc) 30 ml PO Q4H PRN PRN Reason: GI Upset Stop: 11/02/24 14:11 Atorvastatin Calcium (Atorvastatin 40 Mg Tab) 40 mg PO HS BEATRICE Stop: 11/02/24 21:59 Last Admin: 10/20/24 21:07 Dose: 40 mg Bismuth Subsalicylate (Bismuth Subsalicylate 262 Mg Chew) 2 tab PO Q30M PRN PRN Reason: Loose Stool/Diarrhea Stop: 11/02/24 14:11 Clozapine (Clozapine 100 Mg Tab) 500 mg PO QPM [facility] Stop: 11/13/24 20:59 Last Admin: 10/20/24 21:08 Dose: 500 mg Cyanocobalamin (Cyanocobalamin (B-12) 100 Mcg Tablet) 100 mcg PO QAM [facility]RICE Stop: 11/02/24 08:59 Last Admin: 10/20/24 08:45 Dose: 100 mcg Docusate Sodium (Docusate Sodium 100 Mg Cap) 200 mg PO BID [facility]ATRICE Stop: 11/13/24 20:59 Last Admin: 10/20/24 21:07 Dose: 200 mg Glycopyrrolate (Glycopyrrolate 1 Mg Tab) 1 mg PO BID [facility]ATRICE Stop: 11/13/24 20:59 Last Admin: 10/20/24 21:07 Dose: 1 mg Haloperidol (Haloperidol 5 Mg Tab) 5 mg PO BID PRN PRN Reason: psychosis Stop: 11/02/24 09:02 Last Admin: 10/02/24 12:10 Dose: 5 mg Haloperidol (Haloperidol 5 Mg Tab) 5 mg PO BID [facility] Stop: 10/27/24 20:59 Last Admin: 10/20/24 21:10 Dose: 5 mg Haloperidol Lactate (Haloperidol Lactate 5 Mg/Ml 1 Ml Vial) 5 mg IM BID PRN PRN Reason: agitation Stop: 11/02/24 15:34 Hydroxyzine HCl (Hydroxyzine Hcl 25 Mg Tab) 50 mg PO HSZ PRN PRN Reason: Insomnia Stop: 11/02/24 14:11 Last Admin: 09/28/24 01:21 Dose: 50 mg Hydroxyzine HCl (Hydroxyzine Hcl 25 Mg Tab) 25 mg PO Q4H PRN PRN Reason: Anxiety Stop: 11/02/24 14:11 Levothyroxine Sodium (Levothyroxine Sodium 25 Mcg Tablet) 25 mcg PO DAILYBB [facility] Stop: 11/02/24 07:59 Last Admin: 10/20/24 08:44 Dose: 25 mcg Lisinopril (Lisinopril 20 Mg Tab) 20 mg PO DAILY [facility]ATRICE Stop: 11/02/24 08:59 Last Admin: 10/20/24 08:47 Dose: 20 mg Lorazepam (Lorazepam 2 Mg/1 Ml Vial) 1 mg IM BID PRN PRN Reason: Agitation Stop: 11/02/24 15:34 Lorazepam (Lorazepam 1 Mg Tab) 1 mg PO DAILY PRN PRN Reason: restlessness Stop: 11/02/24 02:10 Last Admin: 09/25/24 07:46 Dose: 1 mg Lorazepam (Lorazepam 1 Mg Tab) 1 mg PO HS PRN PRN Reason: insomnia Stop: 11/02/24 16:13 Magnesium Hydroxide (Magnesium Hydroxide Susp 30 Ml Udc) 30 ml PO DAILY PRN PRN Reason: Constipation Stop: 11/02/24 14:11 Last Admin: 10/02/24 21:05 Dose: 30 ml Melatonin (Melatonin 3 Mg Tab) 3 mg PO HS [facility]ATRICE Stop: 11/03/24 21:59 Last Admin: 10/20/24 21:07 Dose: 3 mg Meloxicam (Meloxicam 7.5 Mg Tab) 15 mg PO DAILY [facility] Stop: 11/02/24 08:59 Last Admin: 10/20/24 08:47 Dose: 15 mg Memantine (Memantine Hcl 10 Mg Tab) 10 mg PO QAM [facility] Stop: 11/14/24 08:59 Last Admin: 10/20/24 08:47 Dose: 10 mg Metformin HCl (Metformin Hcl 500 Mg Tab) 1,000 mg PO BID17 [facility] Stop: 11/02/24 16:59 Last Admin: 10/20/24 17:48 Dose: 1,000 mg Miscellaneous (Remove Nicoderm Patch) 1 each N/A 2100 [facility] Stop: 11/02/24 20:59 Last Admin: 10/20/24 21:21 Dose: Not Given Miscellaneous (Remove Nicoderm Patch) 1 each N/A DAILY@0859 [facility] Stop: 11/14/24 08:58 Last Admin: 10/20/24 08:53 Dose: 1 each Multivitamins (Multivitamin Tab) 1 tab PO DAILY [facility] Stop: 11/02/24 08:59 Last Admin: 10/20/24 08:48 Dose: 1 tab Nicotine (Nicotine 14 Mg/24 Hr Patch) 1 patch TD QAM [facility] Stop: 11/14/24 08:59 Last Admin: 10/20/24 08:52 Dose: 1 patch Nicotine Polacrilex (Nicotine Polacrilex 2 Mg Gum) 1 piece MT Q2H PRN PRN Reason: smoking cessation Stop: 11/02/24 15:22 Last Admin: 09/29/24 10:35 Dose: 1 piece Paroxetine HCl (Paroxetine Hcl 10 Mg Tab) 30 mg PO DAILY [facility]ATIR[facility] Stop: 10/25/24 08:59 Last Admin: 10/20/24 08:48 Dose: 30 mg Phenylephrine HCl (Phenylephrine 0.25% Supp 1 Ea) 1 supp LA DAILY PRN PRN Reason: Hemorrhoids Stop: 11/04/24 15:02 Polyethylene Glycol (Polyethylene (Miralax) 17 Gm Pack) 17 gm PO Q48H [facility] Stop: 11/13/24 08:59 Last Admin: 10/19/24 08:22 Dose: 17 gm Sennosides (Senna 8.6 Mg Tab) 8.6 mg PO Q2D PRN PRN Reason: constipation Stop: 11/02/24 15:30 Sodium Chloride (Sodium Chloride 0.65% Na Soln 45 Ml ([place])) 1 - 2 sprays NA PRN PRN PRN Reason: Nasal Dryness/Congestion Stop: 11/02/24 14:11 Vitamin D (Cholecalciferol 25 Mcg (1000 Units) Tab) 50 mcg PO QAM [facility] Stop: 11/02/24 08:59 Last Admin: 10/20/24 08:44 Dose: 50 mcg Mental Health & Subst Abuse Tx Psychiatrist Name of Psychiatrist: Haley Mazariegos (on maternity leave) will be seen by Dr. Juarez at [facility] Psychiatrist's Date Of Appointment With Psychiatric Provider: 09/27/24 Time of Appointment with Psychiatrist: 1:45PM Psychiatric Appointment Comment: [address] [place] [id number] Employee Development Director Name of Employee Development Director: Evelyn [facility] unit rn case management Phone Number for Employee Development Director: [phone] Post Discharge Appointments Primary Care Physician Name Of Family Doctor/PCP: Dr. Deonte Martinez - [address] [place] [address] Primary Care Date of Future Appointment with PCP: 09/28/24 Time of Appointment with PCP: 8AM Provider Appointment Comment: Arrive @ 745AM, will be seen by ROSE Espinal. Check in via [employer]. [employer] meds. Contact Information Discharge Discharge Address: [address] [place] [id number] (1) Psychosis Psychosis type: schizophrenia Schizophrenia type: paranoid schizophrenia Qualified Code(s): F20.0 - Paranoid schizophrenia
[2024-10-21] MEDS: REMOVE NICODERM PATCH SCH (20:44)
--- NOTE | 2024-10-22 09:08 | Psychiatric Progress Note ---
Date of Service October 22, 2024 Impression / Recommendations Impression REBA KELLY is a 69-year-old man who currently lives [facility], has a history of schizophrenia, recent subdural hematoma, HTN, Type II diabetes, HLD, BPH and was admitted on 09/04/24 14:12 on a 303 involuntary commitment for psychosis and disorganization and now on a 304 commitment granted on 09/23/2024. Diagnosis: Schizophrenia vs Schizoaffective Disorder Bipolar Type. s/p TBI with subdural hematoma (resolved) with low suspicion for confusion at this time. Pt had been stable on clozapine for many years but seems to have decompensated in the setting of his recent fall. A: Slightly more isolative today but appropriate overall, tolerating medications well and slept well overnight. No current housing, assisted bedsearch ongoing. MNPR due to psychosis, past disinhibited behaviors Overall, I spent a total of 25 minutes on this case including meeting with the patient, reviewing the chart, nursing report, orders, and documentation. (1) Psychosis: (2) Schizophrenia: (3) Auditory hallucinations: (4) Sialorrhea: (5) Hypersexuality: (6) Hyperlipidemia: (7) Type 2 diabetes mellitus: (8) Hypertension: (9) Insomnia: Plan 10/22/2024: Continue current medications and treatment plan. 10/21/2024: Continue current medications and treatment plan. 10/20/2024: Continue current medications and treatment plan. 10/19/2024: Continue medications and treatment plan 10/18/2024: Continue medications and treatment plan 10/17/2024: Continue medications and treatment plan 10/16/2024: Biotene mouthwash twice daily after breakfast and lunch 10/15/24: Continue medications and treatment plan 10/14/24: Clozapine 500mg to QPM dosing Increase Memantine to 10mg daily Decrease glycopyrolate to 1mg BID Increase colace to 200mg BID 10/13/24: Continue medications and treatment plan 10/12/24: Miralax Q2D dosing 10/11/24: Start Memantine 5mg daily 10/10/2024: Continue medications and treatment plan 10/09/2024: Decrease clozapine to 500mg HS Repeat clozapine level 10/08/2024: Continue medications and treatment plan 10/07/2024: -Continue current medications and tx plan 10/06/2024: -Continue current medications and tx plan 10/05/2024: -Increase clozapine to 600mg HS 10/04/2024: -Discontinue Depakote -Schedule melatonin 3mg HS 10/03/2024: -Continue current medications and tx plan. 10/02/2024: -Taper Depakote to 500mg HS 10/01/24 Continue medication at current doses. Continue disposition planning. 09/30/24: Increase Glycopyrrolate to 2mg bid for hypersalivation. Continue other medication at current doses. 09/29/24: Continue medication regimen. Scheduled for evaluation by the Office of Aging on . 09/28/24: Add Melatonin 3mg qhs. Continue other medication at current doses. 09/27/24: Increase Haldol to 5mg bid Continue other medication at current doses. 09/26/24 Continue medication at current doses. Will review indication for Paxil. Continue orthostatic vital sign monitoring bid (130s-160s/80s today) along with close monitoring given fall risk. 09/25/2024: -Start haldol 2.5mg BID 09/24/2024: -Decrease Paxil to 30mg daily 09/23/2024: -Increase clozapine to 500mg HS 09/22/2024: -Increase Depakote ER to 1000mg HS -Discontinue Ativan HS scheduled, adjust to prn in case contributing to falls -Orthostatic vitals BID -PT consult 09/21/2024: Clozapine level tomorrow AM 09/20/2024: Increase clozapine to 450mg HS. 09/19/2024: Increase Paxil to 30mg BID 09/18/2024: Continue medications and treatment plan 09/17/2024 Discontinue Haloperidol 09/16/2024: Clozapine to 400 mg at bedtime and discontinue a.m. dose 09/15/2024: Increase clozapine to 50 mg in the morning. Increase glycopyrrolate to 1.5 mg twice daily. 09/14/2024: Start Clozapine 25 mg in the morning 09/13/24: Continue medications and treatment plan 09/12/2024: Decrease clozapine to 350 mg at bedtime Start glycopyrrolate 1 mg twice daily Decrease haloperidol to 2.5 mg twice daily 09/11/2024: -Increase clozapine to 400mg HS 09/10/2024: -Increase clozapine to 350mg HS 09/09/2024: -Increase haldol back to 2.5mg TID -Increase ipratropium bromide 0.06% under the tongue to 3 sprays TID for sialorrhea -Increase clozapine to 300mg HS 09/08/2024: -Decrease haldol to 2.5mg HS -Discontinue topiramate 09/07/2024: -Decrease haldol to 2.5mg BID -Increase clozapine to 250mg HS 09/06/2024: -Increase Depakote ER to 500mg -Increase ipratropium bromide 0.06% under the tongue to 2 sprays TID -taper Topiramate to 25mg HS to reduce polypharmacy burden 09/05/2024: The patient was admitted to the [facility] ([facility] unit) on q15 min checks (behavioral with suicide precautions) for safety. The patient will participate in group, recreational, and milieu therapies and will be offered additional individual and family sessions as clinically appropriate. -Continue psychiatric medications: * Clozapine 200mg HS (consider further dose titration) * Topiramate 25mg BID * Haldol 2.5mg TID * Ativan 1mg HS (goal to taper as sleep improves and stabilizes) -Adjust: * Paxil from 30mg BID to 30mg daily -Start: * Depakote ER 250mg HS -Clozapine level, fasting lipid panel, HBA1c tomorrow AM -Repeat EKG given his age and now on multiple medications that can impact QTc interval Inventory Assets Strengths: supportive living environment, cooperative Needs: safety and stabilization, medication adjustment, additional coping skills, increased outpatient services Suicide Risk Level Suicide Risk Level: Low (q15 min observation checks) (denies SI ) Suicide Risk Level Comments: Risk Factors Assessment Male: Yes : Yes Do You Have Access To A Gun?: No Health Problems: Yes Mental Health Diagnoses: Yes Substance Use Disorders: No Previous Attempt: No Family History of Suicide: No Previous Psychiatric Hospitalization: Yes Hopelessness: No Protective Factors Assessment Mu-Ism Beliefs: Yes Good Rapport with Provider: Yes Interval History Identifying Information REBA KELLY is a 69-year-old man who currently lives [facility], has a history of schizophrenia, recent subdural hematoma, HTN, Type II diabetes, HLD, BPH and was admitted on 09/04/24 14:12 on a 304 involuntary commitment for psychosis and disorganization. Chief Complaint "Just resting". Review of Systems Sleep Information Total Hours of Sleep: 9 Meal Information Percent Meal Consumed - Breakfast: 100 Percent Meal Consumed - Lunch: 100 Percent Meal Consumed - Dinner: 75 Subjective Subjective Patient was seen & assessed and interval progress reviewed with treatment team. Attended evening group and rated his mood as "10". Today more isolative to his room. Tells me he is "just resting". Plans to ask for a snack soon. Made reference to "blessing" some of the nurses. Physical Exam Psychiatric Orientation: alert, oriented to person and oriented to place Apperance: appropriately dressed and + disheveled Eye Contact: good eye contact Motor Behavior: no abnormal motor movements Speech: + abnormal rate/rhythm/volume of speech (mumbled and soft) Affect: euthymic affect Mood: no depressed mood and no anxious mood Thought Process: + circumstantial thought process Thought Content: + preoccupation Suicidal Thoughts: denies suicidal thoughts Homicidal Thoughts: denies homicidal thoughts Hallucinations: + auditory hallucinations Insight: + limited insight Judgment: + limited judgement Vital Signs (Past 24 Hours) Last Vital Signs Temp 36.7 C 10/22/24 06:30 Pulse 90 10/22/24 06:30 Resp 16 10/22/24 06:30 BP 131/77 10/22/24 06:30 Pulse Ox 96 10/21/24 06:40 O2 Del Method Room Air 10/22/24 06:30 Results & Data ([facility]) Laboratory Results Laboratory Results - last 24 hr 10/22/24 06:12 POC Glucose 95 Current Inpatient Medications Current Inpatient Medications: Current Inpatient Medications Acetaminophen (Acetaminophen 325 Mg Tab) 650 mg PO Q4H PRN PRN Reason: Headache or Minor Fever Stop: 11/02/24 14:11 Last Admin: 10/18/24 16:59 Dose: 650 mg Al Hydrox/Mg Hydrox/Simethicone (Aluminum/Magnesium Susp 30 Ml Udc) 30 ml PO Q4H PRN PRN Reason: GI Upset Stop: 11/02/24 14:11 Atorvastatin Calcium (Atorvastatin 40 Mg Tab) 40 mg PO HS [facility] Stop: 11/02/24 21:59 Last Admin: 10/21/24 20:33 Dose: 40 mg Bismuth Subsalicylate (Bismuth Subsalicylate 262 Mg Chew) 2 tab PO Q30M PRN PRN Reason: Loose Stool/Diarrhea Stop: 11/02/24 14:11 Clozapine (Clozapine 100 Mg Tab) 500 mg PO QPM [facility] Stop: 11/13/24 20:59 Last Admin: 10/21/24 20:33 Dose: 500 mg Cyanocobalamin (Cyanocobalamin (B-12) 100 Mcg Tablet) 100 mcg PO QAM [facility] Stop: 11/02/24 08:59 Last Admin: 10/21/24 09:03 Dose: 100 mcg Docusate Sodium (Docusate Sodium 100 Mg Cap) 200 mg PO BID [facility] Stop: 11/13/24 20:59 Last Admin: 10/21/24 20:36 Dose: 200 mg Glycopyrrolate (Glycopyrrolate 1 Mg Tab) 1 mg PO BID [facility] Stop: 11/13/24 20:59 Last Admin: 10/21/24 20:33 Dose: 1 mg Haloperidol (Haloperidol 5 Mg Tab) 5 mg PO BID PRN PRN Reason: psychosis Stop: 11/02/24 09:02 Last Admin: 10/02/24 12:10 Dose: 5 mg Haloperidol (Haloperidol 5 Mg Tab) 5 mg PO BID [facility] Stop: 10/27/24 20:59 Last Admin: 10/21/24 20:35 Dose: 5 mg Haloperidol Lactate (Haloperidol Lactate 5 Mg/Ml 1 Ml Vial) 5 mg IM BID PRN PRN Reason: agitation Stop: 11/02/24 15:34 Hydroxyzine HCl (Hydroxyzine Hcl 25 Mg Tab) 50 mg PO HSZ PRN PRN Reason: Insomnia Stop: 11/02/24 14:11 Last Admin: 09/28/24 01:21 Dose: 50 mg Hydroxyzine HCl (Hydroxyzine Hcl 25 Mg Tab) 25 mg PO Q4H PRN PRN Reason: Anxiety Stop: 11/02/24 14:11 Levothyroxine Sodium (Levothyroxine Sodium 25 Mcg Tablet) 25 mcg PO DAILYBB [facility] Stop: 11/02/24 07:59 Last Admin: 10/21/24 09:03 Dose: 25 mcg Lisinopril (Lisinopril 20 Mg Tab) 20 mg PO DAILY [facility] Stop: 11/02/24 08:59 Last Admin: 10/21/24 09:05 Dose: 20 mg Lorazepam (Lorazepam 2 Mg/1 Ml Vial) 1 mg IM BID PRN PRN Reason: Agitation Stop: 11/02/24 15:34 Lorazepam (Lorazepam 1 Mg Tab) 1 mg PO DAILY PRN PRN Reason: restlessness Stop: 11/02/24 02:10 Last Admin: 09/25/24 07:46 Dose: 1 mg Lorazepam (Lorazepam 1 Mg Tab) 1 mg PO HS PRN PRN Reason: insomnia Stop: 11/02/24 16:13 Magnesium Hydroxide (Magnesium Hydroxide Susp 30 Ml Udc) 30 ml PO DAILY PRN PRN Reason: Constipation Stop: 11/02/24 14:11 Last Admin: 10/02/24 21:05 Dose: 30 ml Melatonin (Melatonin 3 Mg Tab) 3 mg PO HS [facility] Stop: 11/03/24 21:59 Last Admin: 10/21/24 20:36 Dose: 3 mg Meloxicam (Meloxicam 7.5 Mg Tab) 15 mg PO DAILY [facility] Stop: 11/02/24 08:59 Last Admin: 10/21/24 09:05 Dose: 15 mg Memantine (Memantine Hcl 10 Mg Tab) 10 mg PO QAM [facility] Stop: 11/14/24 08:59 Last Admin: 10/21/24 09:06 Dose: 10 mg Metformin HCl (Metformin Hcl 500 Mg Tab) 1,000 mg PO BID17 [facility] Stop: 11/02/24 16:59 Last Admin: 10/21/24 16:48 Dose: 1,000 mg Miscellaneous (Remove Nicoderm Patch) 1 each N/A HS [facility] Stop: 11/20/24 21:59 Last Admin: 10/21/24 20:44 Dose: 1 each Multivitamins (Multivitamin Tab) 1 tab PO DAILY [facility] Stop: 11/02/24 08:59 Last Admin: 10/21/24 09:06 Dose: 1 tab Nicotine (Nicotine 14 Mg/24 Hr Patch) 1 patch TD QAM [facility] Stop: 11/14/24 08:59 Last Admin: 10/21/24 09:07 Dose: 1 patch Nicotine Polacrilex (Nicotine Polacrilex 2 Mg Gum) 1 piece MT Q2H PRN PRN Reason: smoking cessation Stop: 11/02/24 15:22 Last Admin: 09/29/24 10:35 Dose: 1 piece Paroxetine HCl (Paroxetine Hcl 10 Mg Tab) 30 mg PO DAILY [facility] Stop: 10/25/24 08:59 Last Admin: 10/21/24 09:06 Dose: 30 mg Phenylephrine HCl (Phenylephrine 0.25% Supp 1 Ea) 1 supp OH DAILY PRN PRN Reason: Hemorrhoids Stop: 11/04/24 15:02 Polyethylene Glycol (Polyethylene (Miralax) 17 Gm Pack) 17 gm PO Q48H [facility] Stop: 11/13/24 08:59 Last Admin: 10/19/24 08:22 Dose: 17 gm Sennosides (Senna 8.6 Mg Tab) 8.6 mg PO Q2D PRN PRN Reason: constipation Stop: 11/02/24 15:30 Sodium Chloride (Sodium Chloride 0.65% Na Soln 45 Ml (Bernice)) 1 - 2 sprays NA PRN PRN PRN Reason: Nasal Dryness/Congestion Stop: 11/02/24 14:11 Vitamin D (Cholecalciferol 25 Mcg (1000 Units) Tab) 50 mcg PO QAM [facility] Stop: 11/02/24 08:59 Last Admin: 10/21/24 09:03 Dose: 50 mcg Mental Health & Subst Abuse Tx Psychiatrist Name of Psychiatrist: Haley Mazariegos (on maternity leave) will be seen by Dr. Juarez at [facility] Psychiatrist's Date Of Appointment With Psychiatric Provider: 09/27/24 Time of Appointment with Psychiatrist: 1:45PM Psychiatric Appointment Comment: [address] [place] [id number] [employer] Name of [employer]: [facility] rn case management Phone Number for [employer]: [phone] Post Discharge Appointments Primary Care Physician Name Of Family Doctor/PCP: Dr. Deonte Martinez - [address] [place] [address] Primary Care Date of Future Appointment with PCP: 09/28/24 Time of Appointment with PCP: 8AM Provider Appointment Comment: Arrive @ 745AM, will be seen by ROSE Espinal. Check in via [employer]. Bring meds. Contact Information Discharge Discharge Address: [address] [place] [phone] (1) Psychosis Psychosis type: schizophrenia Schizophrenia type: paranoid schizophrenia Qualified Code(s): F20.0 - Paranoid schizophrenia
--- NOTE | 2024-10-23 09:25 | Psychiatric Progress Note ---
Date of Service October 23, 2024 Impression / Recommendations Impression REBA KELLY is a 69-year-old man who currently lives [facility], has a history of schizophrenia, recent subdural hematoma, HTN, Type II diabetes, HLD, BPH and was admitted on 09/04/24 14:12 on a 303 involuntary commitment for psychosis and disorganization and now on a 304 commitment granted on 09/23/2024. Diagnosis: Schizophrenia vs Schizoaffective Disorder Bipolar Type. s/p TBI with subdural hematoma (resolved) with low suspicion for confusion at this time. Pt had been stable on clozapine for many years but seems to have decompensated in the setting of his recent fall. A: Ongoing improvement in sleep, stable mood, no evidence for responding to internal stimuli today, behaviors fairly well organized. No current housing, long-term bedsearch ongoing. [facility]PR due to periods of psychosis, past disinhibited behaviors Overall, I spent a total of 25 minutes on this case including meeting with the patient, reviewing the chart, nursing report, orders, and documentation. (1) Psychosis: (2) Schizophrenia: (3) Auditory hallucinations: (4) Sialorrhea: (5) Hypersexuality: (6) Hyperlipidemia: (7) Type 2 diabetes mellitus: (8) Hypertension: (9) Insomnia: Plan 10/23/2024: Continue current medications and treatment plan. 10/22/2024: Continue current medications and treatment plan. 10/21/2024: Continue current medications and treatment plan. 10/20/2024: Continue current medications and treatment plan. 10/19/2024: Continue medications and treatment plan 10/18/2024: Continue medications and treatment plan 10/17/2024: Continue medications and treatment plan 10/16/2024: Biotene mouthwash twice daily after breakfast and lunch 10/15/24: Continue medications and treatment plan 10/14/24: Clozapine 500mg to QPM dosing Increase Memantine to 10mg daily Decrease glycopyrolate to 1mg BID Increase colace to 200mg BID 10/13/24: Continue medications and treatment plan 10/12/24: Miralax Q2D dosing 10/11/24: Start Memantine 5mg daily 10/10/2024: Continue medications and treatment plan 10/09/2024: Decrease clozapine to 500mg HS Repeat clozapine level 10/08/2024: Continue medications and treatment plan 10/07/2024: -Continue current medications and tx plan 10/06/2024: -Continue current medications and tx plan 10/05/2024: -Increase clozapine to 600mg HS 10/04/2024: -Discontinue Depakote -Schedule melatonin 3mg HS 10/03/2024: -Continue current medications and tx plan. 10/02/2024: -Taper Depakote to 500mg HS 10/01/24 Continue medication at current doses. Continue disposition planning. 09/30/24: Increase Glycopyrrolate to 2mg bid for hypersalivation. Continue other medication at current doses. 09/29/24: Continue medication regimen. Scheduled for evaluation by the Office of Aging on . 09/28/24: Add Melatonin 3mg qhs. Continue other medication at current doses. 09/27/24: Increase Haldol to 5mg bid Continue other medication at current doses. 09/26/24 Continue medication at current doses. Will review indication for Paxil. Continue orthostatic vital sign monitoring bid (130s-160s/80s today) along with close monitoring given fall risk. 09/25/2024: -Start haldol 2.5mg BID 09/24/2024: -Decrease Paxil to 30mg daily 09/23/2024: -Increase clozapine to 500mg HS 09/22/2024: -Increase Depakote ER to 1000mg HS -Discontinue Ativan HS scheduled, adjust to prn in case contributing to falls -Orthostatic vitals BID -PT consult 09/21/2024: Clozapine level tomorrow AM 09/20/2024: Increase clozapine to 450mg HS. 09/19/2024: Increase Paxil to 30mg BID 09/18/2024: Continue medications and treatment plan 09/17/2024 Discontinue Haloperidol 09/16/2024: Clozapine to 400 mg at bedtime and discontinue a.m. dose 09/15/2024: Increase clozapine to 50 mg in the morning. Increase glycopyrrolate to 1.5 mg twice daily. 09/14/2024: Start Clozapine 25 mg in the morning 09/13/24: Continue medications and treatment plan 09/12/2024: Decrease clozapine to 350 mg at bedtime Start glycopyrrolate 1 mg twice daily Decrease haloperidol to 2.5 mg twice daily 09/11/2024: -Increase clozapine to 400mg HS 09/10/2024: -Increase clozapine to 350mg HS 09/09/2024: -Increase haldol back to 2.5mg TID -Increase ipratropium bromide 0.06% under the tongue to 3 sprays TID for sialorrhea -Increase clozapine to 300mg HS 09/08/2024: -Decrease haldol to 2.5mg HS -Discontinue topiramate 09/07/2024: -Decrease haldol to 2.5mg BID -Increase clozapine to 250mg HS 09/06/2024: -Increase Depakote ER to 500mg -Increase ipratropium bromide 0.06% under the tongue to 2 sprays TID -taper Topiramate to 25mg HS to reduce polypharmacy burden 09/05/2024: The patient was admitted to the [facility] ([facility]) on q15 min checks (behavioral with suicide precautions) for safety. The patient will participate in group, recreational, and milieu therapies and will be offered additional individual and family sessions as clinically appropriate. -Continue psychiatric medications: * Clozapine 200mg HS (consider further dose titration) * Topiramate 25mg BID * Haldol 2.5mg TID * Ativan 1mg HS (goal to taper as sleep improves and stabilizes) -Adjust: * Paxil from 30mg BID to 30mg daily -Start: * Depakote ER 250mg HS -Clozapine level, fasting lipid panel, HBA1c tomorrow AM -Repeat EKG given his age and now on multiple medications that can impact QTc i nterval Inventory Assets Strengths: supportive living environment, cooperative Needs: safety and stabilization, medication adjustment, additional coping skills, increased outpatient services Suicide Risk Level Suicide Risk Level: Low (q15 min observation checks) (denies SI ) Suicide Risk Level Comments: Risk Factors Assessment Male: Yes : Yes Do You Have Access To A Gun?: No Health Problems: Yes Mental Health Diagnoses: Yes Substance Use Disorders: No Previous Attempt: No Family History of Suicide: No Previous Psychiatric Hospitalization: Yes Hopelessness: No Protective Factors Assessment Mandaeism Beliefs: Yes Good Rapport with Provider: Yes Interval History Identifying Information REBA KELLY is a 69-year-old man who currently lives [facility], has a history of schizophrenia, recent subdural hematoma, HTN, Type II diabetes, HLD, BPH and was admitted on 09/04/24 14:12 on a 304 involuntary commitment for psychosis and disorganization. Chief Complaint "Fine thank you". Review of Systems Sleep Information Total Hours of Sleep: 7.5 Meal Information Percent Meal Consumed - Breakfast: 100 Percent Meal Consumed - Lunch: 50 Percent Meal Consumed - Dinner: 75 Subjective Subjective Patient was seen & assessed and interval progress reviewed with nursing and social work. Out of his room more this morning. Has been blessing the nurses this morning. Today smiling, making appropriate requests at nursing station for banana and other snacks. Tells me he feels "fine, thank you" and that he "slept great". Denies any medication side effects. Physical Exam Psychiatric Orientation: alert, oriented to person and oriented to place Apperance: appropriately dressed and + disheveled Eye Contact: good eye contact Motor Behavior: no abnormal motor movements Speech: + abnormal rate/rhythm/volume of speech (mumbled ) Affect: euthymic affect Mood: no depressed mood and no anxious mood Thought Process: + circumstantial thought process Thought Content: + preoccupation Suicidal Thoughts: denies suicidal thoughts Homicidal Thoughts: denies homicidal thoughts Hallucinations: + auditory hallucinations (but significantly lessened) Insight: + limited insight Judgment: + limited judgement Vital Signs (Past 24 Hours) Last Vital Signs Temp 36.8 C 10/23/24 06:34 Pulse 72 10/23/24 06:34 Resp 16 10/23/24 06:34 BP 147/84 H 10/23/24 06:34 Pulse Ox 96 10/21/24 06:40 O2 Del Method Room Air 10/22/24 06:30 Results & Data ([facility]) Laboratory Results Laboratory Results - last 24 hr 10/23/24 08:34 POC Glucose 158 H Current Inpatient Medications Current Inpatient Medications: Current Inpatient Medications Acetaminophen (Acetaminophen 325 Mg Tab) 650 mg PO Q4H PRN PRN Reason: Headache or Minor Fever Stop: 11/02/24 14:11 Last Admin: 10/18/24 16:59 Dose: 650 mg Al Hydrox/Mg Hydrox/Simethicone (Aluminum/Magnesium Susp 30 Ml Udc) 30 ml PO Q4H PRN PRN Reason: GI Upset Stop: 11/02/24 14:11 Atorvastatin Calcium (Atorvastatin 40 Mg Tab) 40 mg PO HS BEATRICE Stop: 11/02/24 21:59 Last Admin: 10/22/24 20:25 Dose: 40 mg Bismuth Subsalicylate (Bismuth Subsalicylate 262 Mg Chew) 2 tab PO Q30M PRN PRN Reason: Loose Stool/Diarrhea Stop: 11/02/24 14:11 Clozapine (Clozapine 100 Mg Tab) 500 mg PO QPM BEATRICE Stop: 11/13/24 20:59 Last Admin: 10/22/24 20:25 Dose: 500 mg Cyanocobalamin (Cyanocobalamin (B-12) 100 Mcg Tablet) 100 mcg PO QAM BEATRICE Stop: 11/02/24 08:59 Last Admin: 10/23/24 08:03 Dose: 100 mcg Docusate Sodium (Docusate Sodium 100 Mg Cap) 200 mg PO BID BEATRICE Stop: 11/13/24 20:59 Last Admin: 10/23/24 08:03 Dose: 200 mg Glycopyrrolate (Glycopyrrolate 1 Mg Tab) 1 mg PO BID BEATRICE Stop: 11/13/24 20:59 Last Admin: 10/23/24 08:03 Dose: 1 mg Haloperidol (Haloperidol 5 Mg Tab) 5 mg PO BID PRN PRN Reason: psychosis Stop: 11/02/24 09:02 Last Admin: 10/02/24 12:10 Dose: 5 mg Haloperidol (Haloperidol 5 Mg Tab) 5 mg PO BID BEATRICE Stop: 10/27/24 20:59 Last Admin: 10/23/24 08:04 Dose: 5 mg Haloperidol Lactate (Haloperidol Lactate 5 Mg/Ml 1 Ml Vial) 5 mg IM BID PRN PRN Reason: agitation Stop: 11/02/24 15:34 Hydroxyzine HCl (Hydroxyzine Hcl 25 Mg Tab) 50 mg PO HSZ PRN PRN Reason: Insomnia Stop: 11/02/24 14:11 Last Admin: 09/28/24 01:21 Dose: 50 mg Hydroxyzine HCl (Hydroxyzine Hcl 25 Mg Tab) 25 mg PO Q4H PRN PRN Reason: Anxiety Stop: 11/02/24 14:11 Levothyroxine Sodium (Levothyroxine Sodium 25 Mcg Tablet) 25 mcg PO DAILYBB BEATRICE Stop: 11/02/24 07:59 Last Admin: 10/23/24 08:03 Dose: 25 mcg Lisinopril (Lisinopril 20 Mg Tab) 20 mg PO DAILY BEATRICE Stop: 11/02/24 08:59 Last Admin: 10/23/24 08:04 Dose: 20 mg Lorazepam (Lorazepam 2 Mg/1 Ml Vial) 1 mg IM BID PRN PRN Reason: Agitation Stop: 11/02/24 15:34 Lorazepam (Lorazepam 1 Mg Tab) 1 mg PO DAILY PRN PRN Reason: restlessness Stop: 11/02/24 02:10 Last Admin: 09/25/24 07:46 Dose: 1 mg Lorazepam (Lorazepam 1 Mg Tab) 1 mg PO HS PRN PRN Reason: insomnia Stop: 11/02/24 16:13 Magnesium Hydroxide (Magnesium Hydroxide Susp 30 Ml Udc) 30 ml PO DAILY PRN PRN Reason: Constipation Stop: 11/02/24 14:11 Last Admin: 10/02/24 21:05 Dose: 30 ml Melatonin (Melatonin 3 Mg Tab) 3 mg PO HS BEATRICE Stop: 11/03/24 21:59 Last Admin: 10/22/24 20:29 Dose: 3 mg Meloxicam (Meloxicam 7.5 Mg Tab) 15 mg PO DAILY BEATRICE Stop: 11/02/24 08:59 Last Admin: 10/23/24 08:04 Dose: 15 mg Memantine (Memantine Hcl 10 Mg Tab) 10 mg PO QAM BEATRICE Stop: 11/14/24 08:59 Last Admin: 10/23/24 08:04 Dose: 10 mg Metformin HCl (Metformin Hcl 500 Mg Tab) 1,000 mg PO BID17 BEATRICE Stop: 11/02/24 16:59 Last Admin: 10/23/24 08:03 Dose: 1,000 mg Miscellaneous (Remove Nicoderm Patch) 1 each N/A HS BEATRICE Stop: 11/20/24 21:59 Last Admin: 10/22/24 20:34 Dose: 1 each Multivitamins (Multivitamin Tab) 1 tab PO DAILY BEATRICE Stop: 11/02/24 08:59 Last Admin: 10/23/24 08:03 Dose: 1 tab Nicotine (Nicotine 14 Mg/24 Hr Patch) 1 patch TD QAM BEATRICE Stop: 11/14/24 08:59 Last Admin: 10/23/24 08:03 Dose: 1 patch Nicotine Polacrilex (Nicotine Polacrilex 2 Mg Gum) 1 piece MT Q2H PRN PRN Reason: smoking cessation Stop: 11/02/24 15:22 Last Admin: 09/29/24 10:35 Dose: 1 piece Paroxetine HCl (Paroxetine Hcl 10 Mg Tab) 30 mg PO DAILY BEATRICE Stop: 10/25/24 08:59 Last Admin: 10/23/24 08:03 Dose: 30 mg Phenylephrine HCl (Phenylephrine 0.25% Supp 1 Ea) [address] DAILY PRN PRN Reason: Hemorrhoids Stop: 11/04/24 15:02 Polyethylene Glycol (Polyethylene (Miralax) 17 Gm Pack) 17 gm PO Q48H BEATRICE Stop: 11/13/24 08:59 Last Admin: 10/22/24 09:15 Dose: 17 gm Sennosides (Senna 8.6 Mg Tab) 8.6 mg PO Q2D PRN PRN Reason: constipation Stop: 11/02/24 15:30 Sodium Chloride (Sodium Chloride 0.65% Na Soln 45 Ml (Mclean)) 1 - 2 sprays NA PRN PRN PRN Reason: Nasal Dryness/Congestion Stop: 11/02/24 14:11 Vitamin D (Cholecalciferol 25 Mcg (1000 Units) Tab) 50 mcg PO QAM BEATRICE Stop: 11/02/24 08:59 Last Admin: 10/23/24 08:03 Dose: 50 mcg Mental Health & Subst Abuse Tx Psychiatrist Name of Psychiatrist: Haley Mazariegos (on maternity leave) will be seen by Dr. Juarez at [facility] Psychiatrist's Date Of Appointment With Psychiatric Provider: 09/27/24 Time of Appointment with Psychiatrist: 1:45PM Psychiatric Appointment Comment: [address] [place] [id number] Health Care Attorney Name of Health Care Attorney: [facility] case coordinator Phone Number for Health Care Attorney: [phone] Post Discharge Appointments Primary Care Physician Name Of Family Doctor/PCP: Dr. Deonte Martinez - [address] [id number] Primary Care Date of Future Appointment with PCP: 09/28/24 Time of Appointment with PCP: 8AM Provider Appointment Comment: Arrive @ 745AM, will be seen by ROSE Espinal. Check in via [email or web address]. Bring meds. Contact Information Discharge Discharge Address: [address] [place] [address] (1) Psychosis Psychosis type: schizophrenia Schizophrenia type: paranoid schizophrenia Qualified Code(s): F20.0 - Paranoid schizophrenia
--- NOTE | 2024-10-24 09:15 | Psychiatric Progress Note ---
Date of Service October 24, 2024 Impression / Recommendations Impression REBA KELLY is a 69-year-old man who currently lives [facility], has a history of schizophrenia, recent subdural hematoma, HTN, Type II diabetes, HLD, BPH and was admitted on 09/04/24 14:12 on a 303 involuntary commitment for psychosis and disorganization and now on a 304 commitment granted on 09/23/2024. Diagnosis: Schizophrenia vs Schizoaffective Disorder Bipolar Type. s/p TBI with subdural hematoma (resolved) with low suspicion for confusion at this time. Pt had been stable on clozapine for many years but seems to have decompensated in the setting of his recent fall. A: Stable mood, sleeping well, tolerating medications. Office of aging involved to move process of skilled nursing placement forward. [facility] due to periods of psychosis, past disinhibited behaviors Overall, I spent a total of 25 minutes on this case including meeting with the patient, reviewing the chart, nursing report, orders, and documentation. (1) Psychosis: (2) Schizophrenia: (3) Auditory hallucinations: (4) Sialorrhea: (5) Hypersexuality: (6) Hyperlipidemia: (7) Type 2 diabetes mellitus: (8) Hypertension: (9) Insomnia: Plan 10/24/2024: Continue current medications and treatment plan. 10/23/2024: Continue current medications and treatment plan. 10/22/2024: Continue current medications and treatment plan. 10/21/2024: Continue current medications and treatment plan. 10/20/2024: Continue current medications and treatment plan. 10/19/2024: Continue medications and treatment plan 10/18/2024: Continue medications and treatment plan 10/17/2024: Continue medications and treatment plan 10/16/2024: Biotene mouthwash twice daily after breakfast and lunch 10/15/24: Continue medications and treatment plan 10/14/24: Clozapine 500mg to QPM dosing Increase Memantine to 10mg daily Decrease glycopyrolate to 1mg BID Increase colace to 200mg BID 10/13/24: Continue medications and treatment plan 10/12/24: Miralax Q2D dosing 10/11/24: Start Memantine 5mg daily 10/10/2024: Continue medications and treatment plan 10/09/2024: Decrease clozapine to 500mg HS Repeat clozapine level 10/08/2024: Continue medications and treatment plan 10/07/2024: -Continue current medications and tx plan 10/06/2024: -Continue current medications and tx plan 10/05/2024: -Increase clozapine to 600mg HS 10/04/2024: -Discontinue Depakote -Schedule melatonin 3mg HS 10/03/2024: -Continue current medications and tx plan. 10/02/2024: -Taper Depakote to 500mg HS 10/01/24 Continue medication at current doses. Continue disposition planning. 09/30/24: Increase Glycopyrrolate to 2mg bid for hypersalivation. Continue other medication at current doses. 09/29/24: Continue medication regimen. Scheduled for evaluation by the Office of Aging on . 09/28/24: Add Melatonin 3mg qhs. Continue other medication at current doses. 09/27/24: Increase Haldol to 5mg bid Continue other medication at current doses. 09/26/24 Continue medication at current doses. Will review indication for Paxil. Continue orthostatic vital sign monitoring bid (130s-160s/80s today) along with close monitoring given fall risk. 09/25/2024: -Start haldol 2.5mg BID 09/24/2024: -Decrease Paxil to 30mg daily 09/23/2024: -Increase clozapine to 500mg HS 09/22/2024: -Increase Depakote ER to 1000mg HS -Discontinue Ativan HS scheduled, adjust to prn in case contributing to falls -Orthostatic vitals BID -PT consult 09/21/2024: Clozapine level tomorrow AM 09/20/2024: Increase clozapine to 450mg HS. 09/19/2024: Increase Paxil to 30mg BID 09/18/2024: Continue medications and treatment plan 09/17/2024 Discontinue Haloperidol 09/16/2024: Clozapine to 400 mg at bedtime and discontinue a.m. dose 09/15/2024: Increase clozapine to 50 mg in the morning. Increase glycopyrrolate to 1.5 mg twice daily. 09/14/2024: Start Clozapine 25 mg in the morning 09/13/24: Continue medications and treatment plan 09/12/2024: Decrease clozapine to 350 mg at bedtime Start glycopyrrolate 1 mg twice daily Decrease haloperidol to 2.5 mg twice daily 09/11/2024: -Increase clozapine to 400mg HS 09/10/2024: -Increase clozapine to 350mg HS 09/09/2024: -Increase haldol back to 2.5mg TID -Increase ipratropium bromide 0.06% under the tongue to 3 sprays TID for sialorrhea -Increase clozapine to 300mg HS 09/08/2024: -Decrease haldol to 2.5mg HS -Discontinue topiramate 09/07/2024: -Decrease haldol to 2.5mg BID -Increase clozapine to 250mg HS 09/06/2024: -Increase Depakote ER to 500mg -Increase ipratropium bromide 0.06% under the tongue to 2 sprays TID -taper Topiramate to 25mg HS to reduce polypharmacy burden 09/05/2024: The patient was admitted to the [facility] ([facility]) on q15 min checks (behavioral with suicide precautions) for safety. The patient will participate in group, recreational, and milieu therapies and will be offered additional individual and family sessions as clinically appropriate. -Continue psychiatric medications: * Clozapine 200mg HS (consider further dose titration) * Topiramate 25mg BID * Haldol 2.5mg TID * Ativan 1mg HS (goal to taper as sleep improves and stabilizes) -Adjust: * Paxil from 30mg BID to 30mg daily -Start: * Depakote ER 250mg HS -Clozapine level, fasting lipid panel, HBA1c tomorrow AM -Repeat EKG given his age and now on multiple medications that can impact QTc interval Inventory Assets Strengths: supportive living environment, cooperative Needs: safety and stabilization, medication adjustment, additional coping skills, increased outpatient services Suicide Risk Level Suicide Risk Level: Low (q15 min observation checks) (denies SI ) Suicide Risk Level Comments: Risk Factors Assessment Male: Yes : Yes Do You Have Access To A Gun?: No Health Problems: Yes Mental Health Diagnoses: Yes Substance Use Disorders: No Previous Attempt: No Family History of Suicide: No Previous Psychiatric Hospitalization: Yes Hopelessness: No Protective Factors Assessment Quaker Beliefs: Yes Good Rapport with Provider: Yes Interval History Identifying Information REBA KELLY is a 69-year-old man who currently lives [facility], has a history of schizophrenia, recent subdural hematoma, HTN, Type II diabetes, HLD, BPH and was admitted on 09/04/24 14:12 on a 304 involuntary commitment for psychosis and disorganization. Chief Complaint "Very good". Review of Systems Sleep Information Total Hours of Sleep: 7.75 Meal Information Percent Meal Consumed - Breakfast: 50 Percent Meal Consumed - Lunch: 50 Percent Meal Consumed - Dinner: 50 Subjective Subjective Patient was seen & assessed and interval progress reviewed with nursing and social work. Called the nurses girlfriends and mistresses yesterday. Eating fruit for snacks. No groups. No instances of incontinence. Hasn't been putting anything in his mouth. He reports "very good" mood. [facility] staff. Denies any concerns or problems. Physical Exam Psychiatric Orientation: alert, oriented to person and oriented to place Apperance: appropriately dressed and + disheveled Eye Contact: good eye contact Motor Behavior: no abnormal motor movements Speech: + abnormal rate/rhythm/volume of speech (mumbled ) Affect: euthymic affect Mood: no depressed mood and no anxious mood Thought Process: + circumstantial thought process Thought Content: + preoccupation Suicidal Thoughts: denies suicidal thoughts Homicidal Thoughts: denies homicidal thoughts Hallucinations: + auditory hallucinations (but significantly lessened) Insight: + limited insight Judgment: + limited judgement Vital Signs (Past 24 Hours) Last Vital Signs Temp 36.8 C 10/24/24 06:24 Pulse 90 10/24/24 06:24 Resp 16 10/24/24 06:24 BP 125/75 10/24/24 06:24 Pulse Ox 96 10/21/24 06:40 O2 Del Method Room Air 10/22/24 06:30 Results & Data ([facility]) Laboratory Results Laboratory Results - last 24 hr 10/24/24 07:57 POC Glucose 110 H Current Inpatient Medications Current Inpatient Medications: Current Inpatient Medications Acetaminophen (Acetaminophen 325 Mg Tab) 650 mg PO Q4H PRN PRN Reason: Headache or Minor Fever Stop: 11/02/24 14:11 Last Admin: 10/18/24 16:59 Dose: 650 mg Al Hydrox/Mg Hydrox/Simethicone (Aluminum/Magnesium Susp 30 Ml Udc) 30 ml PO Q4H PRN PRN Reason: GI Upset Stop: 11/02/24 14:11 Atorvastatin Calcium (Atorvastatin 40 Mg Tab) 40 mg PO HS BEATRICE Stop: 11/02/24 21:59 Last Admin: 10/23/24 20:59 Dose: 40 mg Bismuth Subsalicylate (Bismuth Subsalicylate 262 Mg Chew) 2 tab PO Q30M PRN PRN Reason: Loose Stool/Diarrhea Stop: 11/02/24 14:11 Clozapine (Clozapine 100 Mg Tab) 500 mg PO QPM BEATRICE Stop: 11/13/24 20:59 Last Admin: 10/23/24 20:58 Dose: 500 mg Cyanocobalamin (Cyanocobalamin (B-12) 100 Mcg Tablet) 100 mcg PO QAM BEATRICE Stop: 11/02/24 08:59 Last Admin: 10/23/24 08:03 Dose: 100 mcg Docusate Sodium (Docusate Sodium 100 Mg Cap) 200 mg PO BID BEATRICE Stop: 11/13/24 20:59 Last Admin: 10/23/24 20:57 Dose: 200 mg Glycopyrrolate (Glycopyrrolate 1 Mg Tab) 1 mg PO BID BEATRICE Stop: 11/13/24 20:59 Last Admin: 10/23/24 20:58 Dose: 1 mg Haloperidol (Haloperidol 5 Mg Tab) 5 mg PO BID PRN PRN Reason: psychosis Stop: 11/02/24 09:02 Last Admin: 10/02/24 12:10 Dose: 5 mg Haloperidol (Haloperidol 5 Mg Tab) 5 mg PO BID BEATRICE Stop: 10/27/24 20:59 Last Admin: 10/23/24 20:57 Dose: 5 mg Haloperidol Lactate (Haloperidol Lactate 5 Mg/Ml 1 Ml Vial) 5 mg IM BID PRN PRN Reason: agitation Stop: 11/02/24 15:34 Hydroxyzine HCl (Hydroxyzine Hcl 25 Mg Tab) 50 mg PO HSZ PRN PRN Reason: Insomnia Stop: 11/02/24 14:11 Last Admin: 09/28/24 01:21 Dose: 50 mg Hydroxyzine HCl (Hydroxyzine Hcl 25 Mg Tab) 25 mg PO Q4H PRN PRN Reason: Anxiety Stop: 11/02/24 14:11 Levothyroxine Sodium (Levothyroxine Sodium 25 Mcg Tablet) 25 mcg PO DAILYBB BEATRICE Stop: 11/02/24 07:59 Last Admin: 10/23/24 08:03 Dose: 25 mcg Lisinopril (Lisinopril 20 Mg Tab) 20 mg PO DAILY BEATRICE Stop: 11/02/24 08:59 Last Admin: 10/23/24 08:04 Dose: 20 mg Lorazepam (Lorazepam 2 Mg/1 Ml Vial) 1 mg IM BID PRN PRN Reason: Agitation Stop: 11/02/24 15:34 Lorazepam (Lorazepam 1 Mg Tab) 1 mg PO DAILY PRN PRN Reason: restlessness Stop: 11/02/24 02:10 Last Admin: 09/25/24 07:46 Dose: 1 mg Lorazepam (Lorazepam 1 Mg Tab) 1 mg PO HS PRN PRN Reason: insomnia Stop: 11/02/24 16:13 Magnesium Hydroxide (Magnesium Hydroxide Susp 30 Ml Udc) 30 ml PO DAILY PRN PRN Reason: Constipation Stop: 11/02/24 14:11 Last Admin: 10/02/24 21:05 Dose: 30 ml Melatonin (Melatonin 3 Mg Tab) 3 mg PO HS BEATRICE Stop: 11/03/24 21:59 Last Admin: 10/23/24 21:26 Dose: 3 mg Meloxicam (Meloxicam 7.5 Mg Tab) 15 mg PO DAILY BEATRICE Stop: 11/02/24 08:59 Last Admin: 10/23/24 08:04 Dose: 15 mg Memantine (Memantine Hcl 10 Mg Tab) 10 mg PO QAM BEATRICE Stop: 11/14/24 08:59 Last Admin: 10/23/24 08:04 Dose: 10 mg Metformin HCl (Metformin Hcl 500 Mg Tab) 1,000 mg PO BID17 BEATRICE Stop: 11/02/24 16:59 Last Admin: 10/23/24 17:28 Dose: 1,000 mg Miscellaneous (Remove Nicoderm Patch) 1 each N/A HS BEATRICE Stop: 11/20/24 21:59 Last Admin: 10/23/24 21:26 Dose: 1 each Multivitamins (Multivitamin Tab) 1 tab PO DAILY BEATRICE Stop: 11/02/24 08:59 Last Admin: 10/23/24 08:03 Dose: 1 tab Nicotine (Nicotine 14 Mg/24 Hr Patch) 1 patch TD QAM BEATRICE Stop: 11/14/24 08:59 Last Admin: 10/23/24 08:03 Dose: 1 patch Nicotine Polacrilex (Nicotine Polacrilex 2 Mg Gum) 1 piece MT Q2H PRN PRN Reason: smoking cessation Stop: 11/02/24 15:22 Last Admin: 09/29/24 10:35 Dose: 1 piece Paroxetine HCl (Paroxetine Hcl 10 Mg Tab) 30 mg PO DAILY BEATRICE Stop: 10/25/24 08:59 Last Admin: 10/23/24 08:03 Dose: 30 mg Phenylephrine HCl (Phenylephrine 0.25% Supp 1 Ea) 1 supp VA DAILY PRN PRN Reason: Hemorrhoids Stop: 11/04/24 15:02 Polyethylene Glycol (Polyethylene (Miralax) 17 Gm Pack) 17 gm PO Q48H BEATRICE Stop: 11/13/24 08:59 Last Admin: 10/22/24 09:15 Dose: 17 gm Sennosides (Senna 8.6 Mg Tab) 8.6 mg PO Q2D PRN PRN Reason: constipation Stop: 11/02/24 15:30 Sodium Chloride (Sodium Chloride 0.65% Na Soln 45 Ml (Flanagan)) 1 - 2 sprays NA PRN PRN PRN Reason: Nasal Dryness/Congestion Stop: 11/02/24 14:11 Vitamin D (Cholecalciferol 25 Mcg (1000 Units) Tab) 50 mcg PO QAM BEATRICE Stop: 11/02/24 08:59 Last Admin: 10/23/24 08:03 Dose: 50 mcg Mental Health & Subst Abuse Tx Psychiatrist Name of Psychiatrist: Haley Mazariegos (on maternity leave) will be seen by Dr. Juarez at [facility] Psychiatrist's Date Of Appointment With Psychiatric Provider: 09/27/24 Time of Appointment with Psychiatrist: 1:45PM Psychiatric Appointment Comment: [address] [place] [id number] Community Outreach Worker Name of Community Outreach Worker: [facility] service unit case folder Phone Number for Community Outreach Worker: [phone] Post Discharge Appointments Primary Care Physician Name Of Family Doctor/PCP: Dr. Deonte Martinez - [address] [place] [address] Primary Care Date of Future Appointment with PCP: 09/28/24 Time of Appointment with PCP: 8AM Provider Appointment Comment: Arrive @ 745AM, will be seen by ROSE Espinal. Check in via [employer]. [employer]. Contact Information Discharge Discharge Address: [address] [place] [id number] (1) Psychosis Psychosis type: schizophrenia Schizophrenia type: paranoid schizophrenia Qualified Code(s): F20.0 - Paranoid schizophrenia
--- NOTE | 2024-10-25 09:14 | Psychiatric Progress Note ---
Date of Service October 25, 2024 Impression / Recommendations Impression REBA KELLY is a 69-year-old man who currently lives [facility], has a history of schizophrenia, recent subdural hematoma, HTN, Type II diabetes, HLD, BPH and was admitted on 09/04/24 14:12 on a 303 involuntary commitment for psychosis and disorganization and now on a 304 commitment granted on 09/23/2024. Diagnosis: Schizophrenia vs Schizoaffective Disorder Bipolar Type. s/p TBI with subdural hematoma (resolved) with low suspicion for confusion at this time. Pt had been stable on clozapine for many years but seems to have decompensated in the setting of his recent fall. A: Low functioning but able to communicate basic needs. Stable mood, sleeping well, tolerating medications. Office of aging involved to move process of group home placement forward. [facility] due to periods of psychosis, past disinhibited behaviors have resolved. Overall, I spent a total of 25 minutes on this case including meeting with the patient, reviewing the chart, nursing report, orders, and documentation. (1) Psychosis: (2) Schizophrenia: (3) Auditory hallucinations: (4) Sialorrhea: (5) Hypersexuality: (6) Hyperlipidemia: (7) Type 2 diabetes mellitus: (8) Hypertension: (9) Insomnia: Plan 10/25/2024: -No medication changes -Awaiting placement 10/24/2024: Continue current medications and treatment plan. 10/23/2024: Continue current medications and treatment plan. 10/22/2024: Continue current medications and treatment plan. 10/21/2024: Continue current medications and treatment plan. 10/20/2024: Continue current medications and treatment plan. 10/19/2024: Continue medications and treatment plan 10/18/2024: Continue medications and treatment plan 10/17/2024: Continue medications and treatment plan 10/16/2024: Biotene mouthwash twice daily after breakfast and lunch 10/15/24: Continue medications and treatment plan 10/14/24: Clozapine 500mg to QPM dosing Increase Memantine to 10mg daily Decrease glycopyrolate to 1mg BID Increase colace to 200mg BID 10/13/24: Continue medications and treatment plan 10/12/24: Miralax Q2D dosing 10/11/24: Start Memantine 5mg daily 10/10/2024: Continue medications and treatment plan 10/09/2024: Decrease clozapine to 500mg HS Repeat clozapine level 10/08/2024: Continue medications and treatment plan 10/07/2024: -Continue current medications and tx plan 10/06/2024: -Continue current medications and tx plan 10/05/2024: -Increase clozapine to 600mg HS 10/04/2024: -Discontinue Depakote -Schedule melatonin 3mg HS 10/03/2024: -Continue current medications and tx plan. 10/02/2024: -Taper Depakote to 500mg HS 10/01/24 Continue medication at current doses. Continue disposition planning. 09/30/24: Increase Glycopyrrolate to 2mg bid for hypersalivation. Continue other medication at current doses. 09/29/24: Continue medication regimen. Scheduled for evaluation by the Office of Aging on . 09/28/24: Add Melatonin 3mg qhs. Continue other medication at current doses. 09/27/24: Increase Haldol to 5mg bid Continue other medication at current doses. 09/26/24 Continue medication at current doses. Will review indication for Paxil. Continue orthostatic vital sign monitoring bid (130s-160s/80s today) along with close monitoring given fall risk. 09/25/2024: -Start haldol 2.5mg BID 09/24/2024: -Decrease Paxil to 30mg daily 09/23/2024: -Increase clozapine to 500mg HS 09/22/2024: -Increase Depakote ER to 1000mg HS -Discontinue Ativan HS scheduled, adjust to prn in case contributing to falls -Orthostatic vitals BID -PT consult 09/21/2024: Clozapine level tomorrow AM 09/20/2024: Increase clozapine to 450mg HS. 09/19/2024: Increase Paxil to 30mg BID 09/18/2024: Continue medications and treatment plan 09/17/2024 Discontinue Haloperidol 09/16/2024: Clozapine to 400 mg at bedtime and discontinue a.m. dose 09/15/2024: Increase clozapine to 50 mg in the morning. Increase glycopyrrolate to 1.5 mg twice daily. 09/14/2024: Start Clozapine 25 mg in the morning 09/13/24: Continue medications and treatment plan 09/12/2024: Decrease clozapine to 350 mg at bedtime Start glycopyrrolate 1 mg twice daily Decrease haloperidol to 2.5 mg twice daily 09/11/2024: -Increase clozapine to 400mg HS 09/10/2024: -Increase clozapine to 350mg HS 09/09/2024: -Increase haldol back to 2.5mg TID -Increase ipratropium bromide 0.06% under the tongue to 3 sprays TID for sialorrhea -Increase clozapine to 300mg HS 09/08/2024: -Decrease haldol to 2.5mg HS -Discontinue topiramate 09/07/2024: -Decrease haldol to 2.5mg BID -Increase clozapine to 250mg HS 09/06/2024: -Increase Depakote ER to 500mg -Increase ipratropium bromide 0.06% under the tongue to 2 sprays TID -taper Topiramate to 25mg HS to reduce polypharmacy burden 09/05/2024: The patient was admitted to the [facility] ([facility] unit) on q15 min checks (behavioral with suicide precautions) for safety. The patient will participate in group, recreational, and milieu therapies and will be offered additional individual and family sessions as clinically appropriate. -Continue psychiatric medications: * Clozapine 200mg HS (consider further dose titration) * Topiramate 25mg BID * Haldol 2.5mg TID * Ativan 1mg HS (goal to taper as sleep improves and stabilizes) -Adjust: * Paxil from 30mg BID to 30mg daily -Start: * Depakote ER 250mg HS -Clozapine level, fasting lipid panel, HBA1c tomorrow AM -Repeat EKG given his age and now on multiple medications that can impact QTc interval Inventory Assets Strengths: supportive living environment, cooperative Needs: safety and stabilization, medication adjustment, additional coping skills, increased outpatient services Suicide Risk Level Suicide Risk Level: Low (q15 min observation checks) (denies SI ) Suicide Risk Level Comments: Risk Factors Assessment Male: Yes : Yes Do You Have Access To A Gun?: No Health Problems: Yes Mental Health Diagnoses: Yes Substance Use Disorders: No Previous Attempt: No Family History of Suicide: No Previous Psychiatric Hospitalization: Yes Hopelessness: No Protective Factors Assessment Rastafari Beliefs: Yes Good Rapport with Provider: Yes Interval History Identifying Information REBA KELLY is a 69-year-old man who currently lives [facility], has a history of schizophrenia, recent subdural hematoma, HTN, Type II diabetes, HLD, BPH and was admitted on 09/04/24 14:12 on a 304 involuntary commitment for psychosis and disorganization. Chief Complaint "I don't know" Review of Systems Sleep Information Total Hours of Sleep: 6 Meal Information Percent Meal Consumed - Breakfast: 100 Percent Meal Consumed - Lunch: 25 Percent Meal Consumed - Dinner: 0 Subjective Subjective Patient was seen & assessed and interval progress reviewed during treatment team with nursing and social work. Patient evaluated at bedside. He was in bed, positioned flat on his back. When asked if he would like to have the bed head elevated, he stated "I am fine." He seemed to understand simple questions. He was oriented in person (able to tell his name), place (knew he is in the hospital and able to tell the name of the hospital), but only partially oriented in time (only able to tell the year). He denied side effects form medications. Reported good sleep and good appetite. He was unable to tell me when he had his last bowel movement but allowed me to palpate his abdomen which was soft, and non tender. Physical Exam Psychiatric Orientation: alert, oriented to person, oriented to place and cooperative Apperance: + disheveled Eye Contact: + fair eye contact Motor Behavior: no abnormal motor movements Speech: + abnormal rate/rhythm/volume of speech (mumbled ) Affect: + flat affect Mood: + anxious mood Thought Process: + looseness of associations, + perseveration and + incoherent thought process Thought Content: + preoccupation, + paranoid and + delusions Suicidal Thoughts: denies suicidal thoughts, denies suicidal plan and denies suicidal intent Homicidal Thoughts: denies homicidal thoughts Hallucinations: + auditory hallucinations (but significantly lessened); no visual hallucinations Cognition: recent memory grossly intact, remote memory grossly intact, attention grossly intact and language grossly intact Insight: + poor insight Judgment: + poor judgement Vital Signs (Past 24 Hours) Last Vital Signs Temp 36.6 C 10/25/24 06:28 Pulse 82 10/25/24 06:28 Resp 16 10/25/24 06:28 BP 125/78 10/25/24 06:28 Pulse Ox 96 10/21/24 06:40 O2 Del Method Room Air 10/22/24 06:30 Results & Data ([facility]) Laboratory Results Laboratory Results - last 24 hr 10/25/24 06:09 POC Glucose 104 H Current Inpatient Medications Current Inpatient Medications: Current Inpatient Medications Acetaminophen (Acetaminophen 325 Mg Tab) 650 mg PO Q4H PRN PRN Reason: Headache or Minor Fever Stop: 11/02/24 14:11 Last Admin: 10/18/24 16:59 Dose: 650 mg Al Hydrox/Mg Hydrox/Simethicone (Aluminum/Magnesium Susp 30 Ml Udc) 30 ml PO Q4H PRN PRN Reason: GI Upset Stop: 11/02/24 14:11 Atorvastatin Calcium (Atorvastatin 40 Mg Tab) 40 mg PO HS BEATRICE Stop: 11/02/24 21:59 Last Admin: 10/24/24 21:06 Dose: 40 mg Bismuth Subsalicylate (Bismuth Subsalicylate 262 Mg Chew) 2 tab PO Q30M PRN PRN Reason: Loose Stool/Diarrhea Stop: 11/02/24 14:11 Clozapine (Clozapine 100 Mg Tab) 500 mg PO QPM BEATRICE Stop: 11/13/24 20:59 Last Admin: 10/24/24 21:06 Dose: 500 mg Cyanocobalamin (Cyanocobalamin (B-12) 100 Mcg Tablet) 100 mcg PO QAM BEATRICE Stop: 11/02/24 08:59 Last Admin: 10/25/24 08:44 Dose: 100 mcg Docusate Sodium (Docusate Sodium 100 Mg Cap) 200 mg PO BID BEATRICE Stop: 11/13/24 20:59 Last Admin: 10/25/24 08:44 Dose: 200 mg Glycopyrrolate (Glycopyrrolate 1 Mg Tab) 1 mg PO BID BEATRICE Stop: 11/13/24 20:59 Last Admin: 10/25/24 08:44 Dose: 1 mg Haloperidol (Haloperidol 5 Mg Tab) 5 mg PO BID PRN PRN Reason: psychosis Stop: 11/02/24 09:02 Last Admin: 10/02/24 12:10 Dose: 5 mg Haloperidol (Haloperidol 5 Mg Tab) 5 mg PO BID BEATRICE Stop: 10/27/24 20:59 Last Admin: 10/25/24 08:44 Dose: 5 mg Haloperidol Lactate (Haloperidol Lactate 5 Mg/Ml 1 Ml Vial) 5 mg IM BID PRN PRN Reason: agitation Stop: 11/02/24 15:34 Hydroxyzine HCl (Hydroxyzine Hcl 25 Mg Tab) 50 mg PO HSZ PRN PRN Reason: Insomnia Stop: 11/02/24 14:11 Last Admin: 09/28/24 01:21 Dose: 50 mg Hydroxyzine HCl (Hydroxyzine Hcl 25 Mg Tab) 25 mg PO Q4H PRN PRN Reason: Anxiety Stop: 11/02/24 14:11 Levothyroxine Sodium (Levothyroxine Sodium 25 Mcg Tablet) 25 mcg PO DAILYBB [facility] Stop: 11/02/24 07:59 Last Admin: 10/25/24 08:44 Dose: 25 mcg Lisinopril (Lisinopril 20 Mg Tab) 20 mg PO DAILY BEATRICE Stop: 11/02/24 08:59 Last Admin: 10/25/24 08:45 Dose: 20 mg Lorazepam (Lorazepam 2 Mg/1 Ml Vial) 1 mg IM BID PRN PRN Reason: Agitation Stop: 11/02/24 15:34 Lorazepam (Lorazepam 1 Mg Tab) 1 mg PO DAILY PRN PRN Reason: restlessness Stop: 11/02/24 02:10 Last Admin: 09/25/24 07:46 Dose: 1 mg Lorazepam (Lorazepam 1 Mg Tab) 1 mg PO HS PRN PRN Reason: insomnia Stop: 11/02/24 16:13 Magnesium Hydroxide (Magnesium Hydroxide Susp 30 Ml Udc) 30 ml PO DAILY PRN PRN Reason: Constipation Stop: 11/02/24 14:11 Last Admin: 10/02/24 21:05 Dose: 30 ml Melatonin (Melatonin 3 Mg Tab) 3 mg PO HS BEATRICE Stop: 11/03/24 21:59 Last Admin: 10/24/24 21:05 Dose: 3 mg Meloxicam (Meloxicam 7.5 Mg Tab) 15 mg PO DAILY BEATRICE Stop: 11/02/24 08:59 Last Admin: 10/25/24 08:44 Dose: 15 mg Memantine (Memantine Hcl 10 Mg Tab) 10 mg PO QAM [facility] Stop: 11/14/24 08:59 Last Admin: 10/25/24 08:44 Dose: 10 mg Metformin HCl (Metformin Hcl 500 Mg Tab) 1,000 mg PO BID17 [facility] Stop: 11/02/24 16:59 Last Admin: 10/25/24 08:44 Dose: 1,000 mg Miscellaneous (Remove Nicoderm Patch) 1 each N/A HS [facility] Stop: 11/20/24 21:59 Last Admin: 10/24/24 21:11 Dose: 1 each Multivitamins (Multivitamin Tab) 1 tab PO DAILY BEATRICE Stop: 11/02/24 08:59 Last Admin: 10/25/24 08:45 Dose: 1 tab Nicotine (Nicotine 14 Mg/24 Hr Patch) 1 patch TD QAM BEATRICE Stop: 11/14/24 08:59 Last Admin: 10/25/24 08:46 Dose: 1 patch Nicotine Polacrilex (Nicotine Polacrilex 2 Mg Gum) 1 piece MT Q2H PRN PRN Reason: smoking cessation Stop: 11/02/24 15:22 Last Admin: 09/29/24 10:35 Dose: 1 piece Phenylephrine HCl (Phenylephrine 0.25% Supp 1 Ea) 1 supp VT DAILY PRN PRN Reason: Hemorrhoids Stop: 11/04/24 15:02 Polyethylene Glycol (Polyethylene (Miralax) 17 Gm Pack) 17 gm PO Q48H BEATRICE Stop: 11/13/24 08:59 Last Admin: 10/24/24 09:22 Dose: 17 gm Sennosides (Senna 8.6 Mg Tab) 8.6 mg PO Q2D PRN PRN Reason: constipation Stop: 11/02/24 15:30 Sodium Chloride (Sodium Chloride 0.65% Na Soln 45 Ml ([place])) 1 - 2 sprays NA PRN PRN PRN Reason: Nasal Dryness/Congestion Stop: 11/02/24 14:11 Vitamin D (Cholecalciferol 25 Mcg (1000 Units) Tab) 50 mcg PO QAM BEATRICE Stop: 11/02/24 08:59 Last Admin: 10/25/24 08:43 Dose: 50 mcg Mental Health & Subst Abuse Tx Psychiatrist Name of Psychiatrist: Haley Mazariegos (on maternity leave) will be seen by Dr. Juarez at [facility] Psychiatrist's Date Of Appointment With Psychiatric Provider: 09/27/24 Time of Appointment with Psychiatrist: 1:45PM Psychiatric Appointment Comment: [address] [place] [address] [place] [phone] Second Chef Name of Second Chef: Evelyn - [employer] service [employer] caseworker Phone Number for Second Chef: [phone] Post Discharge Appointments Primary Care Physician Name Of Family Doctor/PCP: Dr. Deonte Martinez - [address] [place] [address] Primary Care Date of Future Appointment with PCP: 09/28/24 Time of Appointment with PCP: 8AM Provider Appointment Comment: Arrive @ 745AM, will be seen by ROSE Espinal. Check in via [employer]. Contact Information Discharge Discharge Address: [address] [place] [address] [place] [phone] (1) Psychosis Psychosis type: schizophrenia Schizophrenia type: paranoid schizophrenia Qualified Code(s): F20.0 - Paranoid schizophrenia
[2024-10-25 13:45] LABS: Hematocrit (blood only) 38.2 % (42.0-52.0); Hemoglobin 12.8 g/dl (14.0-18.0); Immature Granulocytes # (auto) 0.02 K/uL (0.01-0.20); Immature Granulocytes % (auto) 0.2 %; Mean Corpuscular Hemoglobin 29.8 pg (25.0-34.0); Mean Corpuscular Volume 89.0 fL (80.0-100.0); Platelet Count 219 K/uL (130-400); RDW Standard Deviation 41.8 fL (36.4-46.3); Red Blood Count 4.29 M/uL (4.70-6.10); White Blood Count 9.05 K/ul (4.8-10.8)
[2024-10-25 13:49] LABS: Alanine Aminotransferase 18.0 U/L (7-52); Albumin Globulin Ratio 1.5 (0.9-2); Alkaline Phosphatase 94.0 U/L (34-104); Anion Gap 5.0 (3-11); Bilirubin,Total 0.4 mg/dl (0.2-1.0); Blood Urea Nitrogen 21.0 mg/dl (6-23); Calcium 9.4 mg/dl (8.6-10.3); Carbon Dioxide 30.0 mmol/L (21-32); Chloride 104.0 mmol/L (98-107); Creatinine Clr Calc Pharmacy 77.8 ml/min; Globulin 2.6 gm/dl (2.5-4.0); Glucose 85.0 mg/dl (70-99(Fasting)); Potassium 4.5 mmol/L (3.5-5.1); Sodium 139.0 mmol/L (136-145); Total Protein 6.6 gm/dl (6.0-8.3)
--- NOTE | 2024-10-26 12:54 | Psychiatric Progress Note ---
Date of Service October 26, 2024 Impression / Recommendations Impression REBA KELLY is a 69-year-old man who currently lives [facility], has a history of schizophrenia, recent subdural hematoma, HTN, Type II diabetes, HLD, BPH and was admitted on 09/04/24 14:12 on a 303 involuntary commitment for psychosis and disorganization and now on a 304 commitment granted on 09/23/2024. Diagnosis: Schizophrenia vs Schizoaffective Disorder Bipolar Type. s/p TBI with subdural hematoma (resolved) with low suspicion for confusion at this time. Pt had been stable on clozapine for many years but seems to have decompensated in the setting of his recent fall. A: Low functioning but able to communicate basic needs. Stable mood, sleeping well, tolerating medications. Office of aging involved to move process of skilled nursing placement forward. MNPR due to periods of psychosis, past disinhibited behaviors have resolved. Per nursing staff, patient has not shown behavioral problems. Took a shower with staff's assistance last night. Overall, I spent a total of 25 minutes on this case including meeting with the patient, reviewing the chart, nursing report, orders, and documentation. (1) Psychosis: (2) Schizophrenia: (3) Auditory hallucinations: (4) Sialorrhea: (5) Hypersexuality: (6) Hyperlipidemia: (7) Type 2 diabetes mellitus: (8) Hypertension: (9) Insomnia: Plan 10/26/2024: -Continue current treatment plan. No medication changes -Awaiting placement 10/25/2024: -No medication changes -Awaiting placement 10/24/2024: Continue current medications and treatment plan. 10/23/2024: Continue current medications and treatment plan. 10/22/2024: Continue current medications and treatment plan. 10/21/2024: Continue current medications and treatment plan. 10/20/2024: Continue current medications and treatment plan. 10/19/2024: Continue medications and treatment plan 10/18/2024: Continue medications and treatment plan 10/17/2024: Continue medications and treatment plan 10/16/2024: Biotene mouthwash twice daily after breakfast and lunch 10/15/24: Continue medications and treatment plan 10/14/24: Clozapine 500mg to QPM dosing Increase Memantine to 10mg daily Decrease glycopyrolate to 1mg BID Increase colace to 200mg BID 10/13/24: Continue medications and treatment plan 10/12/24: Miralax Q2D dosing 10/11/24: Start Memantine 5mg daily 10/10/2024: Continue medications and treatment plan 10/09/2024: Decrease clozapine to 500mg HS Repeat clozapine level 10/08/2024: Continue medications and treatment plan 10/07/2024: -Continue current medications and tx plan 10/06/2024: -Continue current medications and tx plan 10/05/2024: -Increase clozapine to 600mg HS 10/04/2024: -Discontinue Depakote -Schedule melatonin 3mg HS 10/03/2024: -Continue current medications and tx plan. 10/02/2024: -Taper Depakote to 500mg HS 10/01/24 Continue medication at current doses. Continue disposition planning. 09/30/24: Increase Glycopyrrolate to 2mg bid for hypersalivation. Continue other medication at current doses. 09/29/24: Continue medication regimen. Scheduled for evaluation by the Office of Aging on . 09/28/24: Add Melatonin 3mg qhs. Continue other medication at current doses. 09/27/24: Increase Haldol to 5mg bid Continue other medication at current doses. 09/26/24 Continue medication at current doses. Will review indication for Paxil. Continue orthostatic vital sign monitoring bid (130s-160s/80s today) along with close monitoring given fall risk. 09/25/2024: -Start haldol 2.5mg BID 09/24/2024: -Decrease Paxil to 30mg daily 09/23/2024: -Increase clozapine to 500mg HS 09/22/2024: -Increase Depakote ER to 1000mg HS -Discontinue Ativan HS scheduled, adjust to prn in case contributing to falls -Orthostatic vitals BID -PT consult 09/21/2024: Clozapine level tomorrow AM 09/20/2024: Increase clozapine to 450mg HS. 09/19/2024: Increase Paxil to 30mg BID 09/18/2024: Continue medications and treatment plan 09/17/2024 Discontinue Haloperidol 09/16/2024: Clozapine to 400 mg at bedtime and discontinue a.m. dose 09/15/2024: Increase clozapine to 50 mg in the morning. Increase glycopyrrolate to 1.5 mg twice daily. 09/14/2024: Start Clozapine 25 mg in the morning 09/13/24: Continue medications and treatment plan 09/12/2024: Decrease clozapine to 350 mg at bedtime Start glycopyrrolate 1 mg twice daily Decrease haloperidol to 2.5 mg twice daily 09/11/2024: -Increase clozapine to 400mg HS 09/10/2024: -Increase clozapine to 350mg HS 09/09/2024: -Increase haldol back to 2.5mg TID -Increase ipratropium bromide 0.06% under the tongue to 3 sprays TID for sialorrhea -Increase clozapine to 300mg HS 09/08/2024: -Decrease haldol to 2.5mg HS -Discontinue topiramate 09/07/2024: -Decrease haldol to 2.5mg BID -Increase clozapine to 250mg HS 09/06/2024: -Increase Depakote ER to 500mg -Increase ipratropium bromide 0.06% under the tongue to 2 sprays TID -taper Topiramate to 25mg HS to reduce polypharmacy burden 09/05/2024: The patient was admitted to the [facility] ([facility] mental [facility] unit) on q15 min checks (behavioral with suicide precautions) for safety. The patient will participate in group, recreational, and milieu therapies and will be offered additional individual and family sessions as clinically appropriate. -Continue psychiatric medications: * Clozapine 200mg HS (consider further dose titration) * Topiramate 25mg BID * Haldol 2.5mg TID * Ativan 1mg HS (goal to taper as sleep improves and stabilizes) -Adjust: * Paxil from 30mg BID to 30mg daily -Start: * Depakote ER 250mg HS -Clozapine level, fasting lipid panel, HBA1c tomorrow AM -Repeat EKG given his age and now on multiple medications that can impact QTc interval Inventory Assets Strengths: supportive living environment, cooperative Needs: safety and stabilization, medication adjustment, additional coping skills, increased outpatient services Suicide Risk Level Suicide Risk Level: Low (q15 min observation checks) (denies SI ) Suicide Risk Level Comments: Risk Factors Assessment Male: Yes : Yes Do You Have Access To A Gun?: No Health Problems: Yes Mental Health Diagnoses: Yes Substance Use Disorders: No Previous Attempt: No Family History of Suicide: No Previous Psychiatric Hospitalization: Yes Hopelessness: No Protective Factors Assessment Jewish Beliefs: Yes Good Rapport with Provider: Yes Interval History Identifying Information REBA KELLY is a 69-year-old man who currently lives [facility], has a history of schizophrenia, recent subdural hematoma, HTN, Type II diabetes, HLD, BPH and was admitted on 09/04/24 14:12 on a 304 involuntary commitment for psychosis and disorganization. Chief Complaint "Is June". Review of Systems Sleep Information Total Hours of Sleep: 7.75 Meal Information Percent Meal Consumed - Breakfast: 100 Percent Meal Consumed - Lunch: 100 Percent Meal Consumed - Dinner: 25 Subjective Subjective Patient was seen & assessed and interval progress reviewed with nursing and social work. Patient evaluated at bedside he was in his room room. Hygiene improved after staff assisted him in taking a shower last night. Patient did not recognize me despite meeting me yesterday. However, he engaged well. He continues to be oriented to person place and partially to time. Knew the day of the week and the year). Patient denied any pain or discomfort. Appeared to be in no acute distress. Physical Exam Psychiatric Orientation: alert, oriented to person, oriented to place and cooperative Apperance: appropriately dressed, appropriately groomed and + disheveled Eye Contact: good eye contact Motor Behavior: no abnormal motor movements Speech: + abnormal rate/rhythm/volume of speech (mumbled ) Affect: + flat affect Mood: no depressed mood, no anxious mood and no irritable mood Thought Process: + looseness of associations and + incoherent thought process Thought Content: + preoccupation, + paranoid and + delusions Suicidal Thoughts: denies suicidal thoughts Hallucinations: + auditory hallucinations (but significantly lessened); no visual hallucinations Cognition: + recent memory not intact, + remote memory not intact and + attention not intact Insight: + poor insight Judgment: + poor judgement Vital Signs (Past 24 Hours) Last Vital Signs Temp 36.6 C 10/26/24 06:28 Pulse 81 10/26/24 06:28 Resp 16 10/26/24 06:28 BP 115/74 10/26/24 06:28 Pulse Ox 96 10/21/24 06:40 O2 Del Method Room Air 10/22/24 06:30 Results & Data ([facility]) Laboratory Results Laboratory Results - last 24 hr 10/25/24 10/26/24 12:49 05:59 WBC 9.05 RBC 4.29 L Hgb 12.8 L Hct 38.2 L MCV 89.0 MCH 29.8 MCHC 33.5 RDW Std Deviation 41.8 RDW Coeff of Kay 12.9 Plt Count 219 MPV 11.0 Immature Gran % (Auto) 0.2 Neut % (Auto) 65.1 Lymph % (Auto) 20.3 [place] % (Auto) 9.8 Eos % (Auto) 4.2 Baso % (Auto) 0.4 Neut # (Auto) 5.88 Lymph # (Auto) 1.84 [place] # (Auto) 0.89 H Eos # (Auto) 0.38 Baso # (Auto) 0.04 Immature Gran # (Auto) 0.02 Sodium 139 Potassium 4.5 Chloride 104 Carbon Dioxide 30 Anion Gap 5 BUN 21 Creatinine 1.17 Est Cr Clr Drug Dosing 77.8 eGFR 68.33 BUN/Creatinine Ratio 17.9 Glucose 85 POC Glucose 125 H Calcium 9.4 Total Bilirubin 0.4 AST 16 ALT 18 Alkaline Phosphatase 94 Total Protein 6.6 Albumin 4.0 Globulin 2.6 Albumin/Globulin Ratio 1.5 Current Inpatient Medications Current Inpatient Medications: Current Inpatient Medications Acetaminophen (Acetaminophen 325 Mg Tab) 650 mg PO Q4H PRN PRN Reason: Headache or Minor Fever Stop: 11/02/24 14:11 Last Admin: 10/18/24 16:59 Dose: 650 mg Al Hydrox/Mg Hydrox/Simethicone (Aluminum/Magnesium Susp 30 Ml Udc) 30 ml PO Q4H PRN PRN Reason: GI Upset Stop: 11/02/24 14:11 Atorvastatin Calcium (Atorvastatin 40 Mg Tab) 40 mg PO HS [facility]ATRICE Stop: 11/02/24 21:59 Last Admin: 10/25/24 20:15 Dose: 40 mg Bismuth Subsalicylate (Bismuth Subsalicylate 262 Mg Chew) 2 tab PO Q30M PRN PRN Reason: Loose Stool/Diarrhea Stop: 11/02/24 14:11 Clozapine (Clozapine 100 Mg Tab) 500 mg PO QPM [facility]ICE Stop: 11/13/24 20:59 Last Admin: 10/25/24 20:14 Dose: 500 mg Cyanocobalamin (Cyanocobalamin (B-12) 100 Mcg Tablet) 100 mcg PO QAM [facility] Stop: 11/02/24 08:59 Last Admin: 10/26/24 08:46 Dose: 100 mcg Docusate Sodium (Docusate Sodium 100 Mg Cap) 200 mg PO BID [facility]ATRICE Stop: 11/13/24 20:59 Last Admin: 10/26/24 08:45 Dose: 200 mg Glycopyrrolate (Glycopyrrolate 1 Mg Tab) 1 mg PO BID [facility]ATRICE Stop: 11/13/24 20:59 Last Admin: 10/26/24 08:46 Dose: 1 mg Haloperidol (Haloperidol 5 Mg Tab) 5 mg PO BID PRN PRN Reason: psychosis Stop: 11/02/24 09:02 Last Admin: 10/02/24 12:10 Dose: 5 mg Haloperidol (Haloperidol 5 Mg Tab) 5 mg PO BID [facility]ATRICE Stop: 10/27/24 20:59 Last Admin: 10/26/24 08:45 Dose: 5 mg Haloperidol Lactate (Haloperidol Lactate 5 Mg/Ml 1 Ml Vial) 5 mg IM BID PRN PRN Reason: agitation Stop: 11/02/24 15:34 Hydroxyzine HCl (Hydroxyzine Hcl 25 Mg Tab) 50 mg PO HSZ PRN PRN Reason: Insomnia Stop: 11/02/24 14:11 Last Admin: 09/28/24 01:21 Dose: 50 mg Hydroxyzine HCl (Hydroxyzine Hcl 25 Mg Tab) 25 mg PO Q4H PRN PRN Reason: Anxiety Stop: 11/02/24 14:11 Levothyroxine Sodium (Levothyroxine Sodium 25 Mcg Tablet) 25 mcg PO DAILYBB [facility] Stop: 11/02/24 07:59 Last Admin: 10/26/24 08:45 Dose: 25 mcg Lisinopril (Lisinopril 20 Mg Tab) 20 mg PO DAILY [facility]ATRICE Stop: 11/02/24 08:59 Last Admin: 10/26/24 08:45 Dose: 20 mg Lorazepam (Lorazepam 2 Mg/1 Ml Vial) 1 mg IM BID PRN PRN Reason: Agitation Stop: 11/02/24 15:34 Lorazepam (Lorazepam 1 Mg Tab) 1 mg PO DAILY PRN PRN Reason: restlessness Stop: 11/02/24 02:10 Last Admin: 09/25/24 07:46 Dose: 1 mg Lorazepam (Lorazepam 1 Mg Tab) 1 mg PO HS PRN PRN Reason: insomnia Stop: 11/02/24 16:13 Magnesium Hydroxide (Magnesium Hydroxide Susp 30 Ml Udc) 30 ml PO DAILY PRN PRN Reason: Constipation Stop: 11/02/24 14:11 Last Admin: 10/02/24 21:05 Dose: 30 ml Melatonin (Melatonin 3 Mg Tab) 3 mg PO HS [facility]ATRICE Stop: 11/03/24 21:59 Last Admin: 10/25/24 20:14 Dose: 3 mg Meloxicam (Meloxicam 7.5 Mg Tab) 15 mg PO DAILY [facility]RICE Stop: 11/02/24 08:59 Last Admin: 10/26/24 08:46 Dose: 15 mg Memantine (Memantine Hcl 10 Mg Tab) 10 mg PO QAM [facility] Stop: 11/14/24 08:59 Last Admin: 10/26/24 08:45 Dose: 10 mg Metformin HCl (Metformin Hcl 500 Mg Tab) 1,000 mg PO BID17 [facility] Stop: 11/02/24 16:59 Last Admin: 10/26/24 08:46 Dose: 1,000 mg Miscellaneous (Remove Nicoderm Patch) 1 each N/A HS [facility] Stop: 11/20/24 21:59 Last Admin: 10/25/24 20:17 Dose: 1 each Multivitamins (Multivitamin Tab) 1 tab PO DAILY [facility] Stop: 11/02/24 08:59 Last Admin: 10/26/24 08:45 Dose: 1 tab Nicotine (Nicotine 14 Mg/24 Hr Patch) 1 patch TD QAM [facility] Stop: 11/14/24 08:59 Last Admin: 10/26/24 08:47 Dose: 1 patch Nicotine Polacrilex (Nicotine Polacrilex 2 Mg Gum) 1 piece MT Q2H PRN PRN Reason: smoking cessation Stop: 11/02/24 15:22 Last Admin: 09/29/24 10:35 Dose: 1 piece Paroxetine HCl (Paroxetine Hcl 10 Mg Tab) 30 mg PO QAM [facility] Stop: 11/25/24 08:59 Last Admin: 10/26/24 08:46 Dose: 30 mg Phenylephrine HCl (Phenylephrine 0.25% Supp 1 Ea) 1 supp OK DAILY PRN PRN Reason: Hemorrhoids Stop: 11/04/24 15:02 Polyethylene Glycol (Polyethylene (Miralax) 17 Gm Pack) 17 gm PO Q48H [facility] Stop: 11/13/24 08:59 Last Admin: 10/26/24 08:47 Dose: 17 gm Sennosides (Senna 8.6 Mg Tab) 8.6 mg PO Q2D PRN PRN Reason: constipation Stop: 11/02/24 15:30 Sodium Chloride (Sodium Chloride 0.65% Na Soln 45 Ml ([place])) 1 - 2 sprays NA PRN PRN PRN Reason: Nasal Dryness/Congestion Stop: 11/02/24 14:11 Vitamin D (Cholecalciferol 25 Mcg (1000 Units) Tab) 50 mcg PO QAM [facility] Stop: 11/02/24 08:59 Last Admin: 10/26/24 08:46 Dose: 50 mcg Mental Health & Subst Abuse Tx Psychiatrist Name of Psychiatrist: Haley Mazariegos (on maternity leave) will be seen by Dr. 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 Deonte Martinez - [address] [place] [address] Primary Care Date of Future Appointment with PCP: 09/28/24 Time of Appointment with PCP: 8AM Provider Appointment Comment: Arrive @ 745AM, will be seen by ROSE Espinal. Check in via [employer]. Instant Information med. Contact Information Discharge Discharge Address: [address] [place] [id number] (1) Psychosis Psychosis type: schizophrenia Schizophrenia type: paranoid schizophrenia Qualified Code(s): F20.0 - Paranoid schizophrenia
--- NOTE | 2024-10-27 09:34 | Psychiatric Progress Note ---
Date of Service October 27, 2024 Impression / Recommendations Impression REBA KELLY is a 69-year-old man who currently lives [facility], has a history of schizophrenia, recent subdural hematoma, HTN, Type II diabetes, HLD, BPH and was admitted on 09/04/24 14:12 on a 303 involuntary commitment for psychosis and disorganization and now on a 304 commitment granted on 09/23/2024. Diagnosis: Schizophrenia vs Schizoaffective Disorder Bipolar Type. s/p TBI with subdural hematoma (resolved) with low suspicion for confusion at this time. Pt had been stable on clozapine for many years but seems to have decompensated in the setting of his recent fall. A: No changes. Tolerating medications well.. Low functioning but able to communicate basic needs. Stable mood, sleeping well. Office of aging involved to move process of half-way placement forward. MNPR due to periods of psychosis, past disinhibited behaviors have resolved. Overall, I spent a total of 25 minutes on this case including meeting with the patient, reviewing the chart, nursing report, orders, and documentation. (1) Psychosis: (2) Schizophrenia: (3) Auditory hallucinations: (4) Sialorrhea: (5) Hypersexuality: (6) Hyperlipidemia: (7) Type 2 diabetes mellitus: (8) Hypertension: (9) Insomnia: Plan 10/27/2024: -Continue current treatment plan. No medication changes -Awaiting placement 10/26/2024: -Continue current treatment plan. No medication changes -Awaiting placement 10/25/2024: -No medication changes -Awaiting placement 10/24/2024: Continue current medications and treatment plan. 10/23/2024: Continue current medications and treatment plan. 10/22/2024: Continue current medications and treatment plan. 10/21/2024: Continue current medications and treatment plan. 10/20/2024: Continue current medications and treatment plan. 10/19/2024: Continue medications and treatment plan 10/18/2024: Continue medications and treatment plan 10/17/2024: Continue medications and treatment plan 10/16/2024: Biotene mouthwash twice daily after breakfast and lunch 10/15/24: Continue medications and treatment plan 10/14/24: Clozapine 500mg to QPM dosing Increase Memantine to 10mg daily Decrease glycopyrolate to 1mg BID Increase colace to 200mg BID 10/13/24: Continue medications and treatment plan 10/12/24: Miralax Q2D dosing 10/11/24: Start Memantine 5mg daily 10/10/2024: Continue medications and treatment plan 10/09/2024: Decrease clozapine to 500mg HS Repeat clozapine level 10/08/2024: Continue medications and treatment plan 10/07/2024: -Continue current medications and tx plan 10/06/2024: -Continue current medications and tx plan 10/05/2024: -Increase clozapine to 600mg HS 10/04/2024: -Discontinue Depakote -Schedule melatonin 3mg HS 10/03/2024: -Continue current medications and tx plan. 10/02/2024: -Taper Depakote to 500mg HS 10/01/24 Continue medication at current doses. Continue disposition planning. 09/30/24: Increase Glycopyrrolate to 2mg bid for hypersalivation. Continue other medication at current doses. 09/29/24: Continue medication regimen. Scheduled for evaluation by the Office of Aging on . 09/28/24: Add Melatonin 3mg qhs. Continue other medication at current doses. 09/27/24: Increase Haldol to 5mg bid Continue other medication at current doses. 09/26/24 Continue medication at current doses. Will review indication for Paxil. Continue orthostatic vital sign monitoring bid (130s-160s/80s today) along with close monitoring given fall risk. 09/25/2024: -Start haldol 2.5mg BID 09/24/2024: -Decrease Paxil to 30mg daily 09/23/2024: -Increase clozapine to 500mg HS 09/22/2024: -Increase Depakote ER to 1000mg HS -Discontinue Ativan HS scheduled, adjust to prn in case contributing to falls -Orthostatic vitals BID -PT consult 09/21/2024: Clozapine level tomorrow AM 09/20/2024: Increase clozapine to 450mg HS. 09/19/2024: Increase Paxil to 30mg BID 09/18/2024: Continue medications and treatment plan 09/17/2024 Discontinue Haloperidol 09/16/2024: Clozapine to 400 mg at bedtime and discontinue a.m. dose 09/15/2024: Increase clozapine to 50 mg in the morning. Increase glycopyrrolate to 1.5 mg twice daily. 09/14/2024: Start Clozapine 25 mg in the morning 09/13/24: Continue medications and treatment plan 09/12/2024: Decrease clozapine to 350 mg at bedtime Start glycopyrrolate 1 mg twice daily Decrease haloperidol to 2.5 mg twice daily 09/11/2024: -Increase clozapine to 400mg HS 09/10/2024: -Increase clozapine to 350mg HS 09/09/2024: -Increase haldol back to 2.5mg TID -Increase ipratropium bromide 0.06% under the tongue to 3 sprays TID for sialorrhea -Increase clozapine to 300mg HS 09/08/2024: -Decrease haldol to 2.5mg HS -Discontinue topiramate 09/07/2024: -Decrease haldol to 2.5mg BID -Increase clozapine to 250mg HS 09/06/2024: -Increase Depakote ER to 500mg -Increase ipratropium bromide 0.06% under the tongue to 2 sprays TID -taper Topiramate to 25mg HS to reduce polypharmacy burden 09/05/2024: The patient was admitted to the [facility] ([facility] mental health unit) on q15 min checks (behavioral with suicide precautions) for safety. The patient will participate in group, recreational, and milieu therapies and will be offered additional individual and family sessions as clinically appropriate. -Continue psychiatric medications: * Clozapine 200mg HS (consider further dose titration) * Topiramate 25mg BID * Haldol 2.5mg TID * Ativan 1mg HS (goal to taper as sleep improves and stabilizes) -Adjust: * Paxil from 30mg BID to 30mg daily -Start: * Depakote ER 250mg HS -Clozapine level, fasting lipid panel, HBA1c tomorrow AM -Repeat EKG given his age and now on multiple medications that can impact QTc interval Inventory Assets Strengths: supportive living environment, cooperative Needs: safety and stabilization, medication adjustment, additional coping skills, increased outpatient services Suicide Risk Level Suicide Risk Level: Low (q15 min observation checks) (denies SI ) Suicide Risk Level Comments: Risk Factors Assessment Male: Yes : Yes Do You Have Access To A Gun?: No Health Problems: Yes Mental Health Diagnoses: Yes Substance Use Disorders: No Previous Attempt: No Family History of Suicide: No Previous Psychiatric Hospitalization: Yes Hopelessness: No Protective Factors Assessment Holiness Beliefs: Yes Good Rapport with Provider: Yes Interval History Identifying Information REBA KELLY is a 69-year-old man who currently lives [facility], has a history of schizophrenia, recent subdural hematoma, HTN, Type II diabetes, HLD, BPH and was admitted on 09/04/24 14:12 on a 304 involuntary commitment for psychosis and disorganization. Chief Complaint "I feel well" Review of Systems Sleep Information Total Hours of Sleep: 9.25 Meal Information Percent Meal Consumed - Breakfast: 100 Percent Meal Consumed - Lunch: 100 Percent Meal Consumed - Dinner: 15 Subjective Subjective Patient was seen & assessed and interval progress reviewed with nursing and social work. Per nursing report patient slept 9 hours. He went outside yesterday for fresh air. Patient evaluated at bedside. He appeared to be in no acute distress. Patient stated that he is feeling well. When asked if he had eaten today, patient could not remember. When asked if he recognizes milligram. From previous visits, patient immediately looked at my badge and answered"physician." He denies side effects from medications. Reported good sleep and good appetite. Physical Exam Psychiatric Orientation: alert, oriented to person, oriented to place and cooperative Apperance: appropriately dressed and appropriately groomed Eye Contact: good eye contact Motor Behavior: no abnormal motor movements Speech: + abnormal rate/rhythm/volume of speech (mumbled ) Affect: + flat affect Mood: no depressed mood, no anxious mood and no irritable mood Thought Process: + looseness of associations Thought Content: + preoccupation and + paranoid (Rarely goes out of his room on his own) Suicidal Thoughts: denies suicidal thoughts, denies suicidal plan and denies suicidal intent Homicidal Thoughts: denies homicidal thoughts Hallucinations: + auditory hallucinations (but significantly lessened); no visual hallucinations Cognition: language grossly intact; + recent memory not intact, + remote memory not intact and + attention not intact Insight: + poor insight Judgment: + poor judgement Vital Signs (Past 24 Hours) Last Vital Signs Temp 36.4 C L 10/27/24 06:26 Pulse 72 10/27/24 06:26 Resp 16 10/27/24 06:26 BP 117/68 10/27/24 06:26 Pulse Ox 96 10/21/24 06:40 O2 Del Method Room Air 10/22/24 06:30 Results & Data ([facility]) Current Inpatient Medications Current Inpatient Medications: Current Inpatient Medications Acetaminophen (Acetaminophen 325 Mg Tab) 650 mg PO Q4H PRN PRN Reason: Headache or Minor Fever Stop: 11/02/24 14:11 Last Admin: 10/18/24 16:59 Dose: 650 mg Al Hydrox/Mg Hydrox/Simethicone (Aluminum/Magnesium Susp 30 Ml Udc) 30 ml PO Q4H PRN PRN Reason: GI Upset Stop: 11/02/24 14:11 Atorvastatin Calcium (Atorvastatin 40 Mg Tab) 40 mg PO HS [facility]ATRICE Stop: 11/02/24 21:59 Last Admin: 10/26/24 20:03 Dose: 40 mg Bismuth Subsalicylate (Bismuth Subsalicylate 262 Mg Chew) 2 tab PO Q30M PRN PRN Reason: Loose Stool/Diarrhea Stop: 11/02/24 14:11 Clozapine (Clozapine 100 Mg Tab) 500 mg PO QPM [facility]ICE Stop: 11/13/24 20:59 Last Admin: 10/26/24 20:05 Dose: 500 mg Cyanocobalamin (Cyanocobalamin (B-12) 100 Mcg Tablet) 100 mcg PO QAM [facility] Stop: 11/02/24 08:59 Last Admin: 10/27/24 08:17 Dose: 100 mcg Docusate Sodium (Docusate Sodium 100 Mg Cap) 200 mg PO BID [facility]ATRICE Stop: 11/13/24 20:59 Last Admin: 10/27/24 08:22 Dose: 200 mg Glycopyrrolate (Glycopyrrolate 1 Mg Tab) 1 mg PO BID [facility]RICE Stop: 11/13/24 20:59 Last Admin: 10/27/24 08:18 Dose: 1 mg Haloperidol (Haloperidol 5 Mg Tab) 5 mg PO BID PRN PRN Reason: psychosis Stop: 11/02/24 09:02 Last Admin: 10/02/24 12:10 Dose: 5 mg Haloperidol (Haloperidol 5 Mg Tab) 5 mg PO BID [facility]ATRICE Stop: 10/27/24 20:59 Last Admin: 10/27/24 08:22 Dose: 5 mg Haloperidol Lactate (Haloperidol Lactate 5 Mg/Ml 1 Ml Vial) 5 mg IM BID PRN PRN Reason: agitation Stop: 11/02/24 15:34 Hydroxyzine HCl (Hydroxyzine Hcl 25 Mg Tab) 50 mg PO HSZ PRN PRN Reason: Insomnia Stop: 11/02/24 14:11 Last Admin: 09/28/24 01:21 Dose: 50 mg Hydroxyzine HCl (Hydroxyzine Hcl 25 Mg Tab) 25 mg PO Q4H PRN PRN Reason: Anxiety Stop: 11/02/24 14:11 Levothyroxine Sodium (Levothyroxine Sodium 25 Mcg Tablet) 25 mcg PO DAILYBB [facility] Stop: 11/02/24 07:59 Last Admin: 10/27/24 08:17 Dose: 25 mcg Lisinopril (Lisinopril 20 Mg Tab) 20 mg PO DAILY [facility]RICE Stop: 11/02/24 08:59 Last Admin: 10/27/24 08:19 Dose: 20 mg Lorazepam (Lorazepam 2 Mg/1 Ml Vial) 1 mg IM BID PRN PRN Reason: Agitation Stop: 11/02/24 15:34 Lorazepam (Lorazepam 1 Mg Tab) 1 mg PO DAILY PRN PRN Reason: restlessness Stop: 11/02/24 02:10 Last Admin: 09/25/24 07:46 Dose: 1 mg Lorazepam (Lorazepam 1 Mg Tab) 1 mg PO HS PRN PRN Reason: insomnia Stop: 11/02/24 16:13 Magnesium Hydroxide (Magnesium Hydroxide Susp 30 Ml Udc) 30 ml PO DAILY PRN PRN Reason: Constipation Stop: 11/02/24 14:11 Last Admin: 10/02/24 21:05 Dose: 30 ml Melatonin (Melatonin 3 Mg Tab) 3 mg PO HS [facility]ICE Stop: 11/03/24 21:59 Last Admin: 10/26/24 20:03 Dose: 3 mg Meloxicam (Meloxicam 7.5 Mg Tab) 15 mg PO DAILY [facility]ICE Stop: 11/02/24 08:59 Last Admin: 10/27/24 08:19 Dose: 15 mg Memantine (Memantine Hcl 10 Mg Tab) 10 mg PO QAM [facility] Stop: 11/14/24 08:59 Last Admin: 10/27/24 08:20 Dose: 10 mg Metformin HCl (Metformin Hcl 500 Mg Tab) 1,000 mg PO BID17 [facility] Stop: 11/02/24 16:59 Last Admin: 10/27/24 08:20 Dose: 1,000 mg Miscellaneous (Remove Nicoderm Patch) 1 each N/A HS [facility] Stop: 11/20/24 21:59 Last Admin: 10/26/24 20:08 Dose: 1 each Multivitamins (Multivitamin Tab) 1 tab PO DAILY [facility] Stop: 11/02/24 08:59 Last Admin: 10/27/24 08:20 Dose: 1 tab Nicotine (Nicotine 14 Mg/24 Hr Patch) [facility] Stop: 11/14/24 08:59 Last Admin: 10/26/24 08:47 Dose: 1 patch Nicotine Polacrilex (Nicotine Polacrilex 2 Mg Gum) 1 piece MT Q2H PRN PRN Reason: smoking cessation Stop: 11/02/24 15:22 Last Admin: 09/29/24 10:35 Dose: 1 piece Paroxetine HCl (Paroxetine Hcl 10 Mg Tab) 30 mg PO QAM [facility] Stop: 11/25/24 08:59 Last Admin: 10/27/24 08:20 Dose: 30 mg Phenylephrine HCl (Phenylephrine 0.25% Supp 1 Ea) 1 supp [place] DAILY PRN PRN Reason: Hemorrhoids Stop: 11/04/24 15:02 Polyethylene Glycol (Polyethylene (Miralax) 17 Gm Pack) 17 gm PO Q48H [facility] Stop: 11/13/24 08:59 Last Admin: 10/26/24 08:47 Dose: 17 gm Sennosides (Senna 8.6 Mg Tab) 8.6 mg PO Q2D PRN PRN Reason: constipation Stop: 11/02/24 15:30 Sodium Chloride (Sodium Chloride 0.65% Na Soln 45 Ml ([place])) 1 - 2 sprays NA PRN PRN PRN Reason: Nasal Dryness/Congestion Stop: 11/02/24 14:11 Vitamin D (Cholecalciferol 25 Mcg (1000 Units) Tab) 50 mcg PO QAM [facility] Stop: 11/02/24 08:59 Last Admin: 10/27/24 08:17 Dose: 50 mcg Mental Health & Subst Abuse Tx Psychiatrist Name of Psychiatrist: Haley Mazariegos (on maternity leave) will be seen by Dr. Juarez at [facility] Psychiatrist's Date Of Appointment With Psychiatric Provider: 09/27/24 Time of Appointment with Psychiatrist: 1:45PM [facility]iatric [facility]ment [facility] [place] [address] Inspecting Engineer Name of Inspecting Engineer: [facility] returned case inspector Phone Number for Inspecting Engineer: [phone] Post Discharge Appointments Primary Care Physician Name Of Family Doctor/PCP: Dr. Deonte Martinez - [address] [place] [address] Primary Care Date of Future Appointment with PCP: 09/28/24 Time of Appointment with PCP: 8AM Provider Appointment Comment: Arrive @ 745AM, will be seen by ROSE Espinal. Check in via [employer]. [facility] meds. Contact Information Discharge Discharge Address: [address] [place] [address] [place] [id number] (1) Psychosis Psychosis type: schizophrenia Schizophrenia type: paranoid schizophrenia Q ualified Code(s): F20.0 - Paranoid schizophrenia
--- NOTE | 2024-10-28 09:15 | Psychiatric Progress Note ---
Date of Service October 28, 2024 Impression / Recommendations Impression REBA KELLY is a 69-year-old man who currently lives [facility], has a history of schizophrenia, recent subdural hematoma, HTN, Type II diabetes, HLD, BPH and was admitted on 09/04/24 14:12 on a 303 involuntary commitment for psychosis and disorganization and now on a 304 commitment granted on 09/23/2024. Diagnosis: Schizophrenia vs Schizoaffective Disorder Bipolar Type. s/p TBI with subdural hematoma (resolved) with low suspicion for confusion at this time. Pt had been stable on clozapine for many years but seems to have decompensated in the setting of his recent fall. A: Low functioning but able to communicate basic needs. Stable mood, sleeping well. No changes. Tolerating medications well. Office of aging involved to move process of fci placement forward. MNPR due to periods of psychosis, past disinhibited behaviors have resolved. Overall, I spent a total of 25 minutes on this case including meeting with the patient, reviewing the chart, nursing report, orders, and documentation. (1) Psychosis: (2) Schizophrenia: (3) Auditory hallucinations: (4) Sialorrhea: (5) Hypersexuality: (6) Hyperlipidemia: (7) Type 2 diabetes mellitus: (8) Hypertension: (9) Insomnia: Plan 10/27/2024: -No medication changes -Awaiting response from office of aging 10/27/2024: -Continue current treatment plan. No medication changes -Awaiting placement 10/26/2024: -Continue current treatment plan. No medication changes -Awaiting placement 10/25/2024: -No medication changes -Awaiting placement 10/24/2024: Continue current medications and treatment plan. 10/23/2024: Continue current medications and treatment plan. 10/22/2024: Continue current medications and treatment plan. 10/21/2024: Continue current medications and treatment plan. 10/20/2024: Continue current medications and treatment plan. 10/19/2024: Continue medications and treatment plan 10/18/2024: Continue medications and treatment plan 10/17/2024: Continue medications and treatment plan 10/16/2024: Biotene mouthwash twice daily after breakfast and lunch 10/15/24: Continue medications and treatment plan 10/14/24: Clozapine 500mg to QPM dosing Increase Memantine to 10mg daily Decrease glycopyrolate to 1mg BID Increase colace to 200mg BID 10/13/24: Continue medications and treatment plan 10/12/24: Miralax Q2D dosing 10/11/24: Start Memantine 5mg daily 10/10/2024: Continue medications and treatment plan 10/09/2024: Decrease clozapine to 500mg HS Repeat clozapine level 10/08/2024: Continue medications and treatment plan 10/07/2024: -Continue current medications and tx plan 10/06/2024: -Continue current medications and tx plan 10/05/2024: -Increase clozapine to 600mg HS 10/04/2024: -Discontinue Depakote -Schedule melatonin 3mg HS 10/03/2024: -Continue current medications and tx plan. 10/02/2024: -Taper Depakote to 500mg HS 10/01/24 Continue medication at current doses. Continue disposition planning. 09/30/24: Increase Glycopyrrolate to 2mg bid for hypersalivation. Continue other medication at current doses. 09/29/24: Continue medication regimen. Scheduled for evaluation by the Office of Aging on . 09/28/24: Add Melatonin 3mg qhs. Continue other medication at current doses. 09/27/24: Increase Haldol to 5mg bid Continue other medication at current doses. 09/26/24 Continue medication at current doses. Will review indication for Paxil. Continue orthostatic vital sign monitoring bid (130s-160s/80s today) along with close monitoring given fall risk. 09/25/2024: -Start haldol 2.5mg BID 09/24/2024: -Decrease Paxil to 30mg daily 09/23/2024: -Increase clozapine to 500mg HS 09/22/2024: -Increase Depakote ER to 1000mg HS -Discontinue Ativan HS scheduled, adjust to prn in case contributing to falls -Orthostatic vitals BID -PT consult 09/21/2024: Clozapine level tomorrow AM 09/20/2024: Increase clozapine to 450mg HS. 09/19/2024: Increase Paxil to 30mg BID 09/18/2024: Continue medications and treatment plan 09/17/2024 Discontinue Haloperidol 09/16/2024: Clozapine to 400 mg at bedtime and discontinue a.m. dose 09/15/2024: Increase clozapine to 50 mg in the morning. Increase glycopyrrolate to 1.5 mg twice daily. 09/14/2024: Start Clozapine 25 mg in the morning 09/13/24: Continue medications and treatment plan 09/12/2024: Decrease clozapine to 350 mg at bedtime Start glycopyrrolate 1 mg twice daily Decrease haloperidol to 2.5 mg twice daily 09/11/2024: -Increase clozapine to 400mg HS 09/10/2024: -Increase clozapine to 350mg HS 09/09/2024: -Increase haldol back to 2.5mg TID -Increase ipratropium bromide 0.06% under the tongue to 3 sprays TID for sialorrhea -Increase clozapine to 300mg HS 09/08/2024: -Decrease haldol to 2.5mg HS -Discontinue topiramate 09/07/2024: -Decrease haldol to 2.5mg BID -Increase clozapine to 250mg HS 09/06/2024: -Increase Depakote ER to 500mg -Increase ipratropium bromide 0.06% under the tongue to 2 sprays TID -taper Topiramate to 25mg HS to reduce polypharmacy burden 09/05/2024: The patient was admitted to the [facility]) on q15 min checks (behavioral with suicide precautions) for safety. The patient will participate in group, recreational, and milieu therapies and will be offered additional individual and family sessions as clinically appropriate. -Continue psychiatric medications: * Clozapine 200mg HS (consider further dose titration) * Topiramate 25mg BID * Haldol 2.5mg TID * Ativan 1mg HS (goal to taper as sleep improves and stabilizes) -Adjust: * Paxil from 30mg BID to 30mg daily -Start: * Depakote ER 250mg HS -Clozapine level, fasting lipid panel, HBA1c tomorrow AM -Repeat EKG given his age and now on multiple medications that can impact QTc interval Inventory Assets Strengths: supportive living environment, cooperative Needs: safety and stabilization, medication adjustment, additional coping skills, increased outpatient services Suicide Risk Level Suicide Risk Level: Low (q15 min observation checks) (denies SI ) Suicide Risk Level Comments: Risk Factors Assessment Male: Yes : Yes Do You Have Access To A Gun?: No Health Problems: Yes Mental Health Diagnoses: Yes Substance Use Disorders: No Previous Attempt: No Family History of Suicide: No Previous Psychiatric Hospitalization: Yes Hopelessness: No Protective Factors Assessment Uatsdin Beliefs: Yes Good Rapport with Provider: Yes Interval History Identifying Information REBA KELLY is a 69-year-old man who currently lives [facility], has a history of schizophrenia, recent subdural hematoma, HTN, Type II diabetes, HLD, BPH and was admitted on 09/04/24 14:12 on a 304 involuntary commitment for psychosis and disorganization. Chief Complaint " I'm OK" Review of Systems Sleep Information Total Hours of Sleep: 8.5 Meal Information Percent Meal Consumed - Breakfast: 50 Percent Meal Consumed - Lunch: 50 Percent Meal Consumed - Dinner: 25 Subjective Subjective Patient was seen & assessed and interval progress reviewed with nursing and social work. Patient evaluated at bedside. He was seated on his bed looking out the window. He appeared calm and easy to engage. He was unable to engage in prolonged conversation. Reported feeling well. Denied pain or discomfort.On exam, he appears disheveled, malodorous. Physical Exam Psychiatric Orientation: alert, oriented to person, oriented to place, oriented to time and cooperative Apperance: appropriately dressed, appropriately groomed and + disheveled Eye Contact: good eye contact and + fair eye contact Motor Behavior: no abnormal motor movements Speech: + abnormal rate/rhythm/volume of speech (mumbled ) Affect: + flat affect Mood: no depressed mood and no irritable mood Thought Process: goal directed thought process (On short conversation) Thought Content: + preoccupation, + paranoid (Rarely goes out of his room on his own) and + delusions Suicidal Thoughts: denies suicidal thoughts, denies suicidal plan and denies suicidal intent Homicidal Thoughts: denies homicidal thoughts Hallucinations: + auditory hallucinations (but significantly lessened); no visual hallucinations Cognition: language grossly intact; + recent memory not intact, + remote memory not intact and + attention not intact Insight: + poor insight Judgment: + poor judgement Vital Signs (Past 24 Hours) Last Vital Signs Temp 36.9 C 10/28/24 06:22 Pulse 88 10/28/24 06:22 Resp 16 10/28/24 06:22 BP 125/78 10/28/24 06:22 Pulse Ox 96 10/21/24 06:40 O2 Del Method Room Air 10/22/24 06:30 Results & Data (U) Laboratory Results Laboratory Results - last 24 hr 10/28/24 08:10 POC Glucose 114 H Current Inpatient Medications Current Inpatient Medications: Current Inpatient Medications Acetaminophen (Acetaminophen 325 Mg Tab) 650 mg PO Q4H PRN PRN Reason: Headache or Minor Fever Stop: 11/02/24 14:11 Last Admin: 10/18/24 16:59 Dose: 650 mg Al Hydrox/Mg Hydrox/Simethicone (Aluminum/Magnesium Susp 30 Ml Udc) 30 ml PO Q4H PRN PRN Reason: GI Upset Stop: 11/02/24 14:11 Atorvastatin Calcium (Atorvastatin 40 Mg Tab) 40 mg PO HS [facility] Stop: 11/02/24 21:59 Last Admin: 10/27/24 20:52 Dose: 40 mg Bismuth Subsalicylate (Bismuth Subsalicylate 262 Mg Chew) 2 tab PO Q30M PRN PRN Reason: Loose Stool/Diarrhea Stop: 11/02/24 14:11 Clozapine (Clozapine 100 Mg Tab) 500 mg PO QPM [facility] Stop: 11/13/24 20:59 Last Admin: 10/27/24 20:52 Dose: 500 mg Cyanocobalamin (Cyanocobalamin (B-12) 100 Mcg Tablet) 100 mcg PO QAM [facility] Stop: 11/02/24 08:59 Last Admin: 10/28/24 08:13 Dose: 100 mcg Docusate Sodium (Docusate Sodium 100 Mg Cap) 200 mg PO BID [facility] Stop: 11/13/24 20:59 Last Admin: 10/28/24 08:12 Dose: 200 mg Glycopyrrolate (Glycopyrrolate 1 Mg Tab) 1 mg PO BID [facility] Stop: 11/13/24 20:59 Last Admin: 10/28/24 08:13 Dose: 1 mg Haloperidol (Haloperidol 5 Mg Tab) 5 mg PO BID PRN PRN Reason: psychosis Stop: 11/02/24 09:02 Last Admin: 10/02/24 12:10 Dose: 5 mg Haloperidol Lactate (Haloperidol Lactate 5 Mg/Ml 1 Ml Vial) 5 mg IM BID PRN PRN Reason: agitation Stop: 11/02/24 15:34 Hydroxyzine HCl (Hydroxyzine Hcl 25 Mg Tab) 50 mg PO HSZ PRN PRN Reason: Insomnia Stop: 11/02/24 14:11 Last Admin: 09/28/24 01:21 Dose: 50 mg Hydroxyzine HCl (Hydroxyzine Hcl 25 Mg Tab) 25 mg PO Q4H PRN PRN Reason: Anxiety Stop: 11/02/24 14:11 Levothyroxine Sodium (Levothyroxine Sodium 25 Mcg Tablet) 25 mcg PO DAILYBB [facility] Stop: 11/02/24 07:59 Last Admin: 10/28/24 08:12 Dose: 25 mcg Lisinopril (Lisinopril 20 Mg Tab) 20 mg PO DAILY [facility]RICE Stop: 11/02/24 08:59 Last Admin: 10/28/24 08:39 Dose: 20 mg Lorazepam (Lorazepam 2 Mg/1 Ml Vial) 1 mg IM BID PRN PRN Reason: Agitation Stop: 11/02/24 15:34 Lorazepam (Lorazepam 1 Mg Tab) 1 mg PO DAILY PRN PRN Reason: restlessness Stop: 11/02/24 02:10 Last Admin: 09/25/24 07:46 Dose: 1 mg Lorazepam (Lorazepam 1 Mg Tab) 1 mg PO HS PRN PRN Reason: insomnia Stop: 11/02/24 16:13 Magnesium Hydroxide (Magnesium Hydroxide Susp 30 Ml Udc) 30 ml PO DAILY PRN PRN Reason: Constipation Stop: 11/02/24 14:11 Last Admin: 10/02/24 21:05 Dose: 30 ml Melatonin (Melatonin 3 Mg Tab) 3 mg PO HS [facility] Stop: 11/03/24 21:59 Last Admin: 10/27/24 20:55 Dose: 3 mg Meloxicam (Meloxicam 7.5 Mg Tab) 15 mg PO DAILY [facility] Stop: 11/02/24 08:59 Last Admin: 10/28/24 08:15 Dose: 15 mg Memantine (Memantine Hcl 10 Mg Tab) 10 mg PO QAM [facility] Stop: 11/14/24 08:59 Last Admin: 10/28/24 08:14 Dose: 10 mg Metformin HCl (Metformin Hcl 500 Mg Tab) 1,000 mg PO BID17 [facility] Stop: 11/02/24 16:59 Last Admin: 10/28/24 08:15 Dose: 1,000 mg Miscellaneous (Remove Nicoderm Patch) 1 each N/A HS [facility] Stop: 11/20/24 21:59 Last Admin: 10/27/24 20:56 Dose: 1 each Multivitamins (Multivitamin Tab) 1 tab PO DAILY [facility] Stop: 11/02/24 08:59 Last Admin: 10/28/24 08:13 Dose: 1 tab Nicotine (Nicotine 14 Mg/24 Hr Patch) 1 patch TD QAM [facility] Stop: 11/14/24 08:59 Last Admin: 10/28/24 08:17 Dose: 1 patch Nicotine Polacrilex (Nicotine Polacrilex 2 Mg Gum) 1 piece MT Q2H PRN PRN Reason: smoking cessation Stop: 11/02/24 15:22 Last Admin: 09/29/24 10:35 Dose: 1 piece Paroxetine HCl (Paroxetine Hcl 10 Mg Tab) 30 mg PO QAM [facility] Stop: 11/25/24 08:59 Last Admin: 10/28/24 08:14 Dose: 30 mg Phenylephrine HCl (Phenylephrine 0.25% Supp 1 Ea) 1 supp MT DAILY PRN PRN Reason: Hemorrhoids Stop: 11/04/24 15:02 Polyethylene Glycol (Polyethylene (Miralax) 17 Gm Pack) 17 gm PO Q48H [facility] Stop: 11/13/24 08:59 Last Admin: 10/28/24 08:16 Dose: 17 gm Sennosides (Senna 8.6 Mg Tab) 8.6 mg PO Q2D PRN PRN Reason: constipation Stop: 11/02/24 15:30 Sodium Chloride (Sodium Chloride 0.65% Na Soln 45 Ml (Paraje)) 1 - 2 sprays NA PRN PRN PRN Reason: Nasal Dryness/Congestion Stop: 11/02/24 14:11 Vitamin D (Cholecalciferol 25 Mcg (1000 Units) Tab) 50 mcg PO QAM [facility] Stop: 11/02/24 08:59 Last Admin: 10/28/24 08:13 Dose: 50 mcg Mental Health & Subst Abuse Tx Psychiatrist Name of Psychiatrist: Haley Mazariegos (on maternity leave) will be seen by Dr. 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 Deonte Martinez - [address] [id number] Primary Care Date of Future Appointment with PCP: 09/28/24 Time of Appointment with PCP: 8AM Provider Appointment Comment: Arrive @ 745AM, will be seen by ROSE Espinal. Check in via [employer]. [employer] Contact Information Discharge Discharge Address: [address] [place] [id number] (1) Psychosis Psychosis type: schizophrenia Schizophrenia type: paranoid schizophrenia Qualified Code(s): F20.0 - Paranoid schizophrenia
--- NOTE | 2024-10-29 07:52 | Discharge Summary ---
Date of Service October 29, 2024 History of Present Illness Neftaly was initially brought to the hospital on a 302 warrant from [facility] due to increased disorganization including urinating on the floor, flooding his toilet, and eating dirt out of the flower pots. He was disoriented in the ED and admitted medically due to concern for possible delirium or psychiatric symptoms as a sequelae from recent subdural hematoma. Apparently he had been adherent with all of his outpatient psychiatric medications in the weeks prior to admission and emergence of these symptoms. He had also been seen in the ED a few days prior, on 08/25/2024, for headache, confusion and elevated CPK and discharged back to [facility] where he subsequently decompensated further. On the medical service he was hyperreligious, often chewing on bedding or holding towels in his mouth, restless at times and disrobing inappropriately. Initially his sleep was quite disrupted but this improved with addition of ativan and haldol. Further infomation per initial psychiatry consult note by Dr. Humphrey on 09/01/2024: "Chart review: Seen in [facility] 02/11/24 to 02/20/24 for decompensated psychosis 2/2 med non-adherence. Clozapine titrated back to therapeutic dose and d/c back to [facility]. On exam, pt is AO to self and place. Unable to state year or reason for hospitalization. Denies med s/e and reports regular adherence. Reports voices are torturous and he puts his hands over his years to quiet them. Responds inappropriately and he is disoriented. Talks about satan. Denies SI. Appears calm. Reports feeling safe. Denies pain. Sitter reports no agitated behaviors this morning. 09/01/24 09:53 - Psychiatric Liason Note by Tip Ortega, RN Spoke with Dayana the zoning administrator at [facility] where patient resides, she states that they have been caring for patient for 25 years and his behavior the last few weeks has been completely out of character for him - "he is normally a very modest carolyn", per Dayana patient had a fall in July resulting in a subdural hematoma that he was treated at [facility] for - since then "he has had glimpses of his old self, but hasn't been the same since the fall/head injury", patient was brought to [facility] last Wednesday for AMS and the head CT at that time showed an almost complete resolution of the hematoma and he was discharged back to the personal fpc, Dayana states that they have 07/10 care and patient has been taking his medications each day, patient has seen his outpatient neurologist/PCP/psychiatrist and they have not been able to provide any answers for patient's change in mental status, Dayana would like to be updated on disposition planning but that patient can return to [facility] at discharge. Dayana can be reached at [phone] with any updates regarding patient. Patient seen on rounds with Dr. Humphrey, alert and oriented x 2 - more aware than previous assessment, patient denies any needs but states "I'm insane", denies hallucinations/delusions - "I am a lion and when I roar I cover my ears", patient has been discussing "dragon cum" and "satan's cum" intermittently with staff but otherwise has been appropriate on the floor, psychiatrist to make recommendation and team will continue to follow." Last evening after arriving to the psychiatry unit he urinated in the hallway and was paranoid about the female RNs. Ultimately he agreed to get up off of the floor after speaking with one of the counselors who he remembered and trusts from previous admissions. This morning he has been walking around with a bible and magazine tucked into his underwear briefs. This morning he reports feeling tired and that his mood is "poor". Compliments my eye color and then asks me if I am jealous of his . Feels he is "carrying the sins of the world" and that "Satlinh is putting me through hell". Physical Exam Vital Signs (Past 24 Hours) Last Vital Signs Temp 36.7 C 10/29/24 06:26 Pulse 80 10/29/24 06:26 Resp 16 10/29/24 06:26 BP 124/80 10/29/24 06:26 Pulse Ox 96 10/21/24 06:40 O2 Del Method Room Air 10/22/24 06:30 NO major changes since discharge. See admission H&P, MSE per above and day of discharge summary. Principal Diagnosis Schizophrenia disorder, neurocognitive Psychiatric Data See daily stay summary. In short, safety was maintained and the patient was cooperative with care. Most recent medication changes included switched Paxil to night time, discontinuing other medications with anticholinergic effect (given that Clozapine and Paxil provide sufficient)and they tolerated this well. A family session was not held and arrangements with Skilled Facility completed prior to discharge. Day of Discharge Assessment Today the patient appears to be in no distress. Patient was able to ambulate with the help of a walker and some assistance from staff, took a shower, and received morning medications. Staff noted improvement in mood. Patient denied thoughts to harm self or others. Thoughts remain concrete but organized and they are improved from admission. There is no evidence of psychosis. They agree to take mediations as prescribed and keep follow-up appointments. Patient is aware of being transferred to skilled facility. They are stable for discharge. Transition of Care Transition Of Care Record: was reviewed with the patient Advance Directives Advance Directives Information Provided: No Advance Directives: No Mental Health Advance Directive: No Advance Directives on File: No Living Will: No Power of Manager Of It: No Advance Directives Reason:: Declines as Mental Health Visit. Suicide Risk Level Suicide Risk Level: Low (q15 min observation checks) Suicide Risk Level Comments: Risk Factors Assessment Male: Yes : Yes Do You Have Access To A Gun?: No Health Problems: Yes Mental Health Diagnoses: Yes Substance Use Disorders: No Previous Attempt: No Family History of Suicide: No Previous Psychiatric Hospitalization: Yes Hopelessness: No Protective Factors Assessment Anglican Beliefs: Yes Good Rapport with Provider: Yes Total Time Total Time Spent: Less Than 30 Minutes Discharge Data Consultations Inpatient wound care in August. Lab Results 09/04/24 09/04/24 09/06/24 17:13 19:59 08:25 WBC RBC Hgb Hct MCV MCH MCHC RDW Std Deviation RDW Coeff of Kay Plt Count MPV Immature Gran % (Auto) Neut % (Auto) Lymph % (Auto) [place] % (Auto) Eos % (Auto) Baso % (Auto) Neut # (Auto) Lymph # (Auto) [place] # (Auto) Eos # (Auto) Baso # (Auto) Immature Gran # (Auto) Sodium Potassium Chloride Carbon Dioxide Anion Gap BUN Creatinine Est Cr Clr Drug Dosing eGFR BUN/Creatinine Ratio Glucose POC Glucose 93 114 H 131 H Estimat Average Glucose Hemoglobin A1c Calcium Total Bilirubin AST ALT Alkaline Phosphatase Total Protein Albumin Globulin Albumin/Globulin Ratio Triglycerides Cholesterol LDL Cholesterol, Calc VLDL Cholesterol, Calc HDL Cholesterol Cholesterol/HDL Ratio Urine Color Urine Appearance Urine pH Ur Specific [place] Urine Protein Urine Glucose (UA) Urine Ketones Urine Blood Urine Nitrite Urine Bilirubin Urine Urobilinogen Ur Leukocyte Esterase Urine Comment Clozapine Norclozapine 09/07/24 09/07/24 09/09/24 07:31 07:47 08:52 WBC RBC Hgb Hct MCV MCH MCHC RDW Std Deviation RDW Coeff of Kay Plt Count MPV Immature Gran % (Auto) Neut % (Auto) Lymph % (Auto) [place] % (Auto) Eos % (Auto) Baso % (Auto) Neut # (Auto) Lymph # (Auto) [place] # (Auto) Eos # (Auto) Baso # (Auto) Immature Gran # (Auto) Sodium Potassium Chloride Carbon Dioxide Anion Gap BUN Creatinine Est Cr Clr Drug Dosing eGFR BUN/Creatinine Ratio Glucose POC Glucose 112 H 101 H Estimat Average Glucose 131 Hemoglobin A1c 6.2 H Calcium Total Bilirubin AST ALT Alkaline Phosphatase Total Protein Albumin Globulin Albumin/Globulin Ratio Triglycerides 69 Cholesterol 93 LDL Cholesterol, Calc 37 VLDL Cholesterol, Calc 14 HDL Cholesterol 42 Cholesterol/HDL Ratio 2.2 Urine Color Urine Appearance Urine pH Ur Specific [place] Urine Protein Urine Glucose (UA) Urine Ketones Urine Blood Urine Nitrite Urine Bilirubin Urine Urobilinogen Ur Leukocyte Esterase Urine Comment Clozapine 296 Norclozapine 146 09/10/24 09/10/24 09/12/24 08:17 11:15 07:39 WBC 7.20 RBC 4.01 L Hgb 12.1 L Hct 36.3 L MCV 90.5 MCH 30.2 MCHC 33.3 RDW Std Deviation 40.5 RDW Coeff of Kay 12.3 Plt Count 196 MPV 10.7 Immature Gran % (Auto) 0.3 Neut % (Auto) 65.2 Lymph % (Auto) 22.6 [place] % (Auto) 8.3 Eos % (Auto) 3.2 Baso % (Auto) 0.4 Neut # (Auto) 4.69 Lymph # (Auto) 1.63 [place] # (Auto) 0.60 H Eos # (Auto) 0.23 Baso # (Auto) 0.03 Immature Gran # (Auto) 0.02 Sodium Potassium Chloride Carbon Dioxide Anion Gap BUN Creatinine Est Cr Clr Drug Dosing eGFR BUN/Creatinine Ratio Glucose POC Glucose 104 H Estimat Average Glucose Hemoglobin A1c Calcium Total Bilirubin AST ALT Alkaline Phosphatase Total Protein Albumin Globulin Albumin/Globulin Ratio Triglycerides Cholesterol LDL Cholesterol, Calc VLDL Cholesterol, Calc HDL Cholesterol Cholesterol/HDL Ratio Urine Color Yellow Urine Appearance Clear Urine pH 7.0 Ur Specific [place] 1.018 Urine Protein Negative Urine Glucose (UA) Negative Urine Ketones Trace H Urine Blood Negative Urine Nitrite Negative Urine Bilirubin Negative Urine Urobilinogen Negative Ur Leukocyte Esterase Negative Urine Comment Clozapine Norclozapine 09/12/24 09/13/24 09/16/24 07:57 08:13 08:33 WBC RBC Hgb Hct MCV MCH MCHC RDW Std Deviation RDW Coeff of Kay Plt Count MPV Immature Gran % (Auto) Neut % (Auto) Lymph % (Auto) [place] % (Auto) Eos % (Auto) Baso % (Auto) Neut # (Auto) Lymph # (Auto) [place] # (Auto) Eos # (Auto) Baso # (Auto) Immature Gran # (Auto) Sodium Potassium Chloride Carbon Dioxide Anion Gap BUN Creatinine Est Cr Clr Drug Dosing eGFR BUN/Creatinine Ratio Glucose POC Glucose 103 H 92 101 H Estimat Average Glucose Hemoglobin A1c Calcium Total Bilirubin AST ALT Alkaline Phosphatase Total Protein Albumin Globulin Albumin/Globulin Ratio Triglycerides Cholesterol LDL Cholesterol, Calc VLDL Cholesterol, Calc HDL Cholesterol Cholesterol/HDL Ratio Urine Color Urine Appearance Urine pH Ur Specific [place] Urine Protein Urine Glucose (UA) Urine Ketones Urine Blood Urine Nitrite Urine Bilirubin Urine Urobilinogen Ur Leukocyte Esterase Urine Comment Clozapine Norclozapine 09/18/24 09/18/24 09/19/24 06:59 07:00 06:45 WBC 8.80 RBC 4.14 L Hgb 12.4 L Hct 37.7 L MCV 91.1 MCH 30.0 MCHC 32.9 RDW Std Deviation 40.3 RDW Coeff of Kay 12.0 Plt Count 200 MPV 10.8 Immature Gran % (Auto) 0.2 Neut % (Auto) 56.4 Lymph % (Auto) 28.9 [place] % (Auto) 8.4 Eos % (Auto) 5.5 Baso % (Auto) 0.6 Neut # (Auto) 4.97 Lymph # (Auto) 2.54 [place] # (Auto) 0.74 H Eos # (Auto) 0.48 Baso # (Auto) 0.05 Immature Gran # (Auto) 0.02 Sodium Potassium Chloride Carbon Dioxide Anion Gap BUN Creatinine Est Cr Clr Drug Dosing eGFR BUN/Creatinine Ratio Glucose POC Glucose 107 H 107 H Estimat Average Glucose Hemoglobin A1c Calcium Total Bilirubin AST ALT Alkaline Phosphatase Total Protein Albumin Globulin Albumin/Globulin Ratio Triglycerides Cholesterol LDL Cholesterol, Calc VLDL Cholesterol, Calc HDL Cholesterol Cholesterol/HDL Ratio Urine Color Urine Appearance Urine pH Ur Specific [place] Urine Protein Urine Glucose (UA) Urine Ketones Urine Blood Urine Nitrite Urine Bilirubin Urine Urobilinogen Ur Leukocyte Esterase Urine Comment Clozapine Norclozapine 09/20/24 09/21/24 09/22/24 06:09 08:44 07:56 WBC RBC Hgb Hct MCV MCH MCHC RDW Std Deviation RDW Coeff of Kay Plt Count MPV Immature Gran % (Auto) Neut % (Auto) Lymph % (Auto) [place] % (Auto) Eos % (Auto) Baso % (Auto) Neut # (Auto) Lymph # (Auto) [place] # (Auto) Eos # (Auto) Baso # (Auto) Immature Gran # (Auto) Sodium Potassium Chloride Carbon Dioxide Anion Gap BUN Creatinine Est Cr Clr Drug Dosing eGFR BUN/Creatinine Ratio Glucose POC Glucose 106 H 105 H Estimat Average Glucose Hemoglobin A1c Calcium Total Bilirubin AST ALT Alkaline Phosphatase Total Protein Albumin Globulin Albumin/Globulin Ratio Triglycerides Cholesterol LDL Cholesterol, Calc VLDL Cholesterol, Calc HDL Cholesterol Cholesterol/HDL Ratio Urine Color Urine Appearance Urine pH Ur Specific [place] Urine Protein Urine Glucose (UA) Urine Ketones Urine Blood Urine Nitrite Urine Bilirubin Urine Urobilinogen Ur Leukocyte Esterase Urine Comment Clozapine 454 Norclozapine 134 09/22/24 09/23/24 09/24/24 08:38 06:07 06:12 WBC RBC Hgb Hct MCV MCH MCHC RDW Std Deviation RDW Coeff of Kay Plt Count MPV Immature Gran % (Auto) Neut % (Auto) Lymph % (Auto) [place] % (Auto) Eos % (Auto) Baso % (Auto) Neut # (Auto) Lymph # (Auto) [place] # (Auto) Eos # (Auto) Baso # (Auto) Immature Gran # (Auto) Sodium Potassium Chloride Carbon Dioxide Anion Gap BUN Creatinine Est Cr Clr Drug Dosing eGFR BUN/Creatinine Ratio Glucose POC Glucose 111 H 109 H 118 H Estimat Average Glucose Hemoglobin A1c Calcium Total Bilirubin AST ALT Alkaline Phosphatase Total Protein Albumin Globulin Albumin/Globulin Ratio Triglycerides Cholesterol LDL Cholesterol, Calc VLDL Cholesterol, Calc HDL Cholesterol Cholesterol/HDL Ratio Urine Color Urine Appearance Urine pH Ur Specific [place] Urine Protein Urine Glucose (UA) Urine Ketones Urine Blood Urine Nitrite Urine Bilirubin Urine Urobilinogen Ur Leukocyte Esterase Urine Comment Clozapine Norclozapine 09/25/24 09/25/24 09/26/24 06:29 06:52 06:20 WBC 7.47 RBC 3.68 L Hgb 11.3 L Hct 33.3 L MCV 90.5 MCH 30.7 MCHC 33.9 RDW Std Deviation 40.0 RDW Coeff of Kay 12.1 Plt Count 173 MPV 10.7 Immature Gran % (Auto) 0.4 Neut % (Auto) 52.5 Lymph % (Auto) 30.0 [place] % (Auto) 10.4 Eos % (Auto) 6.0 Baso % (Auto) 0.7 Neut # (Auto) 3.92 Lymph # (Auto) 2.24 [place] # (Auto) 0.78 H Eos # (Auto) 0.45 Baso # (Auto) 0.05 Immature Gran # (Auto) 0.03 Sodium Potassium Chloride Carbon Dioxide Anion Gap BUN Creatinine Est Cr Clr Drug Dosing eGFR BUN/Creatinine Ratio Glucose POC Glucose 122 H 99 Estimat Average Glucose Hemoglobin A1c Calcium Total Bilirubin AST ALT Alkaline Phosphatase Total Protein Albumin Globulin Albumin/Globulin Ratio Triglycerides Cholesterol LDL Cholesterol, Calc VLDL Cholesterol, Calc HDL Cholesterol Cholesterol/HDL Ratio Urine Color Urine Appearance Urine pH Ur Specific [place] Urine Protein Urine Glucose (UA) Urine Ketones Urine Blood Urine Nitrite Urine Bilirubin Urine Urobilinogen Ur Leukocyte Esterase Urine Comment Clozapine Norclozapine 09/27/24 09/28/24 09/29/24 06:11 06:02 06:24 WBC RBC Hgb Hct MCV MCH MCHC RDW Std Deviation RDW Coeff of Kay Plt Count MPV Immature Gran % (Auto) Neut % (Auto) Lymph % (Auto) [place] % (Auto) Eos % (Auto) Baso % (Auto) Neut # (Auto) Lymph # (Auto) [place] # (Auto) Eos # (Auto) Baso # (Auto) Immature Gran # (Auto) Sodium Potassium Chloride Carbon Dioxide Anion Gap BUN Creatinine Est Cr Clr Drug Dosing eGFR BUN/Creatinine Ratio Glucose POC Glucose 110 H 109 H 98 Estimat Average Glucose Hemoglobin A1c Calcium Total Bilirubin AST ALT Alkaline Phosphatase Total Protein Albumin Globulin Albumin/Globulin Ratio Triglycerides Cholesterol LDL Cholesterol, Calc VLDL Cholesterol, Calc HDL Cholesterol Cholesterol/HDL Ratio Urine Color Urine Appearance Urine pH Ur Specific [place] Urine Protein Urine Glucose (UA) Urine Ketones Urine Blood Urine Nitrite Urine Bilirubin Urine Urobilinogen Ur Leukocyte Esterase Urine Comment Clozapine Norclozapine 09/30/24 10/01/24 10/02/24 06:38 06:37 06:52 WBC RBC Hgb Hct MCV MCH MCHC RDW Std Deviation RDW Coeff of Kay Plt Count MPV Immature Gran % (Auto) Neut % (Auto) Lymph % (Auto) [place] % (Auto) Eos % (Auto) Baso % (Auto) Neut # (Auto) Lymph # (Auto) [place] # (Auto) Eos # (Auto) Baso # (Auto) Immature Gran # (Auto) Sodium Potassium Chloride Carbon Dioxide Anion Gap BUN Creatinine Est Cr Clr Drug Dosing eGFR BUN/Creatinine Ratio Glucose POC Glucose 99 94 109 H Estimat Average Glucose Hemoglobin A1c Calcium Total Bilirubin AST ALT Alkaline Phosphatase Total Protein Albumin Globulin Albumin/Globulin Ratio Triglycerides Cholesterol LDL Cholesterol, Calc VLDL Cholesterol, Calc HDL Cholesterol Cholesterol/HDL Ratio Urine Color Urine Appearance Urine pH Ur Specific [place] Urine Protein Urine Glucose (UA) Urine Ketones Urine Blood Urine Nitrite Urine Bilirubin Urine Urobilinogen Ur Leukocyte Esterase Urine Comment Clozapine Norclozapine 10/02/24 10/03/24 10/04/24 07:22 06:30 06:20 WBC 8.84 RBC 3.87 L Hgb 11.8 L Hct 35.3 L MCV 91.2 MCH 30.5 MCHC 33.4 RDW Std Deviation 40.3 RDW Coeff of Kay 12.1 Plt Count 193 MPV 10.7 Immature Gran % (Auto) 0.3 Neut % (Auto) 71.1 Lymph % (Auto) 17.6 [place] % (Auto) 8.1 Eos % (Auto) 2.4 Baso % (Auto) 0.5 Neut # (Auto) 6.28 Lymph # (Auto) 1.56 [place] # (Auto) 0.72 H Eos # (Auto) 0.21 Baso # (Auto) 0.04 Immature Gran # (Auto) 0.03 Sodium Potassium Chloride Carbon Dioxide Anion Gap BUN Creatinine Est Cr Clr Drug Dosing eGFR BUN/Creatinine Ratio Glucose POC Glucose 113 H 89 Estimat Average Glucose Hemoglobin A1c Calcium Total Bilirubin AST ALT Alkaline Phosphatase Total Protein Albumin Globulin Albumin/Globulin Ratio Triglycerides Cholesterol LDL Cholesterol, Calc VLDL Cholesterol, Calc HDL Cholesterol Cholesterol/HDL Ratio Urine Color Urine Appearance Urine pH Ur Specific [place] Urine Protein Urine Glucose (UA) Urine Ketones Urine Blood Urine Nitrite Urine Bilirubin Urine Urobilinogen Ur Leukocyte Esterase Urine Comment Clozapine Norclozapine 10/05/24 10/06/24 10/07/24 06:15 06:22 06:09 WBC RBC Hgb Hct MCV MCH MCHC RDW Std Deviation RDW Coeff of Kay Plt Count MPV Immature Gran % (Auto) Neut % (Auto) Lymph % (Auto) [place] % (Auto) Eos % (Auto) Baso % (Auto) Neut # (Auto) Lymph # (Auto) [place] # (Auto) Eos # (Auto) Baso # (Auto) Immature Gran # (Auto) Sodium Potassium Chloride Carbon Dioxide Anion Gap BUN Creatinine Est Cr Clr Drug Dosing eGFR BUN/Creatinine Ratio Glucose POC Glucose 85 99 94 Estimat Average Glucose Hemoglobin A1c Calcium Total Bilirubin AST ALT Alkaline Phosphatase Total Protein Albumin Globulin Albumin/Globulin Ratio Triglycerides Cholesterol LDL Cholesterol, Calc VLDL Cholesterol, Calc HDL Cholesterol Cholesterol/HDL Ratio Urine Color Urine Appearance Urine pH Ur Specific [place] Urine Protein Urine Glucose (UA) Urine Ketones Urine Blood Urine Nitrite Urine Bilirubin Urine Urobilinogen Ur Leukocyte Esterase Urine Comment Clozapine Norclozapine 10/08/24 10/09/24 10/09/24 08:10 06:37 08:44 WBC 10.96 H RBC 3.99 L Hgb 11.8 L Hct 35.7 L MCV 89.5 MCH 29.6 MCHC 33.1 RDW Std Deviation 41.1 RDW Coeff of Kay 12.6 Plt Count 180 MPV 10.9 Immature Gran % (Auto) 0.3 Neut % (Auto) 72.1 Lymph % (Auto) 13.0 [place] % (Auto) 9.6 Eos % (Auto) 4.7 Baso % (Auto) 0.3 Neut # (Auto) 7.91 H Lymph # (Auto) 1.43 [place] # (Auto) 1.05 H Eos # (Auto) 0.51 H Baso # (Auto) 0.03 Immature Gran # (Auto) 0.03 Sodium Potassium Chloride Carbon Dioxide Anion Gap BUN Creatinine Est Cr Clr Drug Dosing eGFR BUN/Creatinine Ratio Glucose POC Glucose 100 H 108 H Estimat Average Glucose Hemoglobin A1c Calcium Total Bilirubin AST ALT Alkaline Phosphatase Total Protein Albumin Globulin Albumin/Globulin Ratio Triglycerides Cholesterol LDL Cholesterol, Calc VLDL Cholesterol, Calc HDL Cholesterol Cholesterol/HDL Ratio Urine Color Urine Appearance Urine pH Ur Specific [place] Urine Protein Urine Glucose (UA) Urine Ketones Urine Blood Urine Nitrite Urine Bilirubin Urine Urobilinogen Ur Leukocyte Esterase Urine Comment Clozapine Norclozapine 10/09/24 10/10/24 10/11/24 13:13 08:36 08:32 WBC RBC Hgb Hct MCV MCH MCHC RDW Std Deviation RDW Coeff of Kay Plt Count MPV Immature Gran % (Auto) Neut % (Auto) Lymph % (Auto) [place] % (Auto) Eos % (Auto) Baso % (Auto) Neut # (Auto) Lymph # (Auto) [place] # (Auto) Eos # (Auto) Baso # (Auto) Immature Gran # (Auto) Sodium Potassium Chloride Carbon Dioxide Anion Gap BUN Creatinine Est Cr Clr Drug Dosing eGFR BUN/Creatinine Ratio Glucose POC Glucose 101 H 119 H Estimat Average Glucose Hemoglobin A1c Calcium Total Bilirubin AST ALT Alkaline Phosphatase Total Protein Albumin Globulin Albumin/Globulin Ratio Triglycerides Cholesterol LDL Cholesterol, Calc VLDL Cholesterol, Calc HDL Cholesterol Cholesterol/HDL Ratio Urine Color Urine Appearance Urine pH Ur Specific [place] Urine Protein Urine Glucose (UA) Urine Ketones Urine Blood Urine Nitrite Urine Bilirubin Urine Urobilinogen Ur Leukocyte Esterase Urine Comment Clozapine 579 Norclozapine 248 10/12/24 10/13/24 10/14/24 08:31 07:03 08:51 WBC RBC Hgb Hct MCV MCH MCHC RDW Std Deviation RDW Coeff of Kay Plt Count MPV Immature Gran % (Auto) Neut % (Auto) Lymph % (Auto) [place] % (Auto) Eos % (Auto) Baso % (Auto) Neut # (Auto) Lymph # (Auto) [place] # (Auto) Eos # (Auto) Baso # (Auto) Immature Gran # (Auto) Sodium Potassium Chloride Carbon Dioxide Anion Gap BUN Creatinine Est Cr Clr Drug Dosing eGFR BUN/Creatinine Ratio Glucose POC Glucose 96 103 H 96 Estimat Average Glucose Hemoglobin A1c Calcium Total Bilirubin AST ALT Alkaline Phosphatase Total Protein Albumin Globulin Albumin/Globulin Ratio Triglycerides Cholesterol LDL Cholesterol, Calc VLDL Cholesterol, Calc HDL Cholesterol Cholesterol/HDL Ratio Urine Color Urine Appearance Urine pH Ur Specific [place] Urine Protein Urine Glucose (UA) Urine Ketones Urine Blood Urine Nitrite Urine Bilirubin Urine Urobilinogen Ur Leukocyte Esterase Urine Comment Clozapine Norclozapine 10/15/24 10/16/24 10/17/24 07:55 08:52 06:52 WBC RBC Hgb Hct MCV MCH MCHC RDW Std Deviation RDW Coeff of Kay Plt Count MPV Immature Gran % (Auto) Neut % (Auto) Lymph % (Auto) [place] % (Auto) Eos % (Auto) Baso % (Auto) Neut # (Auto) Lymph # (Auto) [place] # (Auto) Eos # (Auto) Baso # (Auto) Immature Gran # (Auto) Sodium Potassium Chloride Carbon Dioxide Anion Gap BUN Creatinine Est Cr Clr Drug Dosing eGFR BUN/Creatinine Ratio Glucose POC Glucose 114 H 134 H 90 Estimat Average Glucose Hemoglobin A1c Calcium Total Bilirubin AST ALT Alkaline Phosphatase Total Protein Albumin Globulin Albumin/Globulin Ratio Triglycerides Cholesterol LDL Cholesterol, Calc VLDL Cholesterol, Calc HDL Cholesterol Cholesterol/HDL Ratio Urine Color Urine Appearance Urine pH Ur Specific [place] Urine Protein Urine Glucose (UA) Urine Ketones Urine Blood Urine Nitrite Urine Bilirubin Urine Urobilinogen Ur Leukocyte Esterase Urine Comment Clozapine Norclozapine 10/18/24 10/19/24 10/20/24 06:17 08:16 06:20 WBC RBC Hgb Hct MCV MCH MCHC RDW Std Deviation RDW Coeff of Kay Plt Count MPV Immature Gran % (Auto) Neut % (Auto) Lymph % (Auto) [place] % (Auto) Eos % (Auto) Baso % (Auto) Neut # (Auto) Lymph # (Auto) [place] # (Auto) Eos # (Auto) Baso # (Auto) Immature Gran # (Auto) Sodium Potassium Chloride Carbon Dioxide Anion Gap BUN Creatinine Est Cr Clr Drug Dosing eGFR BUN/Creatinine Ratio Glucose POC Glucose 110 H 129 H 109 H Estimat Average Glucose Hemoglobin A1c Calcium Total Bilirubin AST ALT Alkaline Phosphatase Total Protein Albumin Globulin Albumin/Globulin Ratio Triglycerides Cholesterol LDL Cholesterol, Calc VLDL Cholesterol, Calc HDL Cholesterol Cholesterol/HDL Ratio Urine Color Urine Appearance Urine pH Ur Specific [place] Urine Protein Urine Glucose (UA) Urine Ketones Urine Blood Urine Nitrite Urine Bilirubin Urine Urobilinogen Ur Leukocyte Esterase Urine Comment Clozapine Norclozapine 10/21/24 10/21/24 10/22/24 06:16 07:30 06:12 WBC RBC Hgb Hct MCV MCH MCHC RDW Std Deviation RDW Coeff of Kay Plt Count MPV Immature Gran % (Auto) Neut % (Auto) Lymph % (Auto) [place] % (Auto) Eos % (Auto) Baso % (Auto) Neut # (Auto) Lymph # (Auto) [place] # (Auto) Eos # (Auto) Baso # (Auto) Immature Gran # (Auto) Sodium Potassium Chloride Carbon Dioxide Anion Gap BUN Creatinine Est Cr Clr Drug Dosing eGFR BUN/Creatinine Ratio Glucose POC Glucose 110 H 95 Estimat Average Glucose Hemoglobin A1c Calcium Total Bilirubin AST ALT Alkaline Phosphatase Total Protein Albumin Globulin Albumin/Globulin Ratio Triglycerides Cholesterol LDL Cholesterol, Calc VLDL Cholesterol, Calc HDL Cholesterol Cholesterol/HDL Ratio Urine Color Yellow Urine Appearance Clear Urine pH 6.0 Ur Specific [place] 1.014 Urine Protein Negative Urine Glucose (UA) Negative Urine Ketones Trace H Urine Blood Negative Urine Nitrite Negative Urine Bilirubin Negative Urine Urobilinogen Negative Ur Leukocyte Esterase Negative Urine Comment Clozapine Norclozapine 10/23/24 10/24/24 10/25/24 08:34 07:57 06:09 WBC RBC Hgb Hct MCV MCH MCHC RDW Std Deviation RDW Coeff of Kay Plt Count MPV Immature Gran % (Auto) Neut % (Auto) Lymph % (Auto) [place]hin % (Auto) Eos % (Auto) Baso % (Auto) Neut # (Auto) Lymph # (Auto) [place]hin # (Auto) Eos # (Auto) Baso # (Auto) Immature Gran # (Auto) Sodium Potassium Chloride Carbon Dioxide Anion Gap BUN Creatinine Est Cr Clr Drug Dosing eGFR BUN/Creatinine Ratio Glucose POC Glucose 158 H 110 H 104 H Estimat Average Glucose Hemoglobin A1c Calcium Total Bilirubin AST ALT Alkaline Phosphatase Total Protein Albumin Globulin Albumin/Globulin Ratio Triglycerides Cholesterol LDL Cholesterol, Calc VLDL Cholesterol, Calc HDL Cholesterol Cholesterol/HDL Ratio Urine Color Urine Appearance Urine pH Ur Specific Avilla Urine Protein Urine Glucose (UA) Urine Ketones Urine Blood Urine Nitrite Urine Bilirubin Urine Urobilinogen Ur Leukocyte Esterase Urine Comment Clozapine Norclozapine 10/25/24 10/26/24 10/28/24 12:49 05:59 08:10 WBC 9.05 RBC 4.29 L Hgb 12.8 L Hct 38.2 L MCV 89.0 MCH 29.8 MCHC 33.5 RDW Std Deviation 41.8 RDW Coeff of Kay 12.9 Plt Count 219 MPV 11.0 Immature Gran % (Auto) 0.2 Neut % (Auto) 65.1 Lymph % (Auto) 20.3 Dauphin % (Auto) 9.8 Eos % (Auto) 4.2 Baso % (Auto) 0.4 Neut # (Auto) 5.88 Lymph # (Auto) 1.84 Dauphin # (Auto) 0.89 H Eos # (Auto) 0.38 Baso # (Auto) 0.04 Immature Gran # (Auto) 0.02 Sodium 139 Potassium 4.5 Chloride 104 Carbon Dioxide 30 Anion Gap 5 BUN 21 Creatinine 1.17 Est Cr Clr Drug Dosing 77.8 eGFR 68.33 BUN/Creatinine Ratio 17.9 Glucose 85 POC Glucose 125 H 114 H Estimat Average Glucose Hemoglobin A1c Calcium 9.4 Total Bilirubin 0.4 AST 16 ALT 18 Alkaline Phosphatase 94 Total Protein 6.6 Albumin 4.0 Globulin 2.6 Albumin/Globulin Ratio 1.5 Triglycerides Cholesterol LDL Cholesterol, Calc VLDL Cholesterol, Calc HDL Cholesterol Cholesterol/HDL Ratio Urine Color Urine Appearance Urine pH Ur Specific Avilla Urine Protein Urine Glucose (UA) Urine Ketones Urine Blood Urine Nitrite Urine Bilirubin Urine Urobilinogen Ur Leukocyte Esterase Urine Comment Clozapine Norclozapine 10/29/24 07:35 WBC RBC Hgb Hct MCV MCH MCHC RDW Std Deviation RDW Coeff of Kay Plt Count MPV Immature Gran % (Auto) Neut % (Auto) Lymph % (Auto) Da[place]hin % (Auto) Eos % (Auto) Baso % (Auto) Neut # (Auto) Lymph # (Auto) [place]hin # (Auto) Eos # (Auto) Baso # (Auto) Immature Gran # (Auto) Sodium Potassium Chloride Carbon Dioxide Anion Gap BUN Creatinine Est Cr Clr Drug Dosing eGFR BUN/Creatinine Ratio Glucose POC Glucose 106 H Estimat Average Glucose Hemoglobin A1c Calcium Total Bilirubin AST ALT Alkaline Phosphatase Total Protein Albumin Globulin Albumin/Globulin Ratio Triglycerides Cholesterol LDL Cholesterol, Calc VLDL Cholesterol, Calc HDL Cholesterol Cholesterol/HDL Ratio Urine Color Urine Appearance Urine pH Ur Specific Avilla Urine Protein Urine Glucose (UA) Urine Ketones Urine Blood Urine Nitrite Urine Bilirubin Urine Urobilinogen Ur Leukocyte Esterase Urine Comment Clozapine Norclozapine Hospital Course (1) Psychosis: Well-controlled (2) Schizophrenia: Stable (3) Auditory hallucinations: Well-controlled (4) Sialorrhea: (5) Hypersexuality: Resolved (6) Hyperlipidemia: (7) Type 2 diabetes mellitus: Stable. (8) Hypertension: Well-controlled (9) Insomnia: Resolved Plan 10/28/2024: Ready for discharge. Patient took her morning shower. Transferring to a skilled facility. 10/27/2024: -No medication changes -Awaiting response from office of aging 10/27/2024: -Continue current treatment plan. No medication changes -Awaiting placement 10/26/2024: -Continue current treatment plan. No medication changes -Awaiting placement 10/25/2024: -No medication changes -Awaiting placement 10/24/2024: Continue current medications and treatment plan. 10/23/2024: Continue current medications and treatment plan. 10/22/2024: Continue current medications and treatment plan. 10/21/2024: Continue current medications and treatment plan. 10/20/2024: Continue current medications and treatment plan. 10/19/2024: Continue medications and treatment plan 10/18/2024: Continue medications and treatment plan 10/17/2024: Continue medications and treatment plan 10/16/2024: Biotene mouthwash twice daily after breakfast and lunch 10/15/24: Continue medications and treatment plan 10/14/24: Clozapine 500mg to QPM dosing Increase Memantine to 10mg daily Decrease glycopyrolate to 1mg BID Increase colace to 200mg BID 10/13/24: Continue medications and treatment plan 10/12/24: Miralax Q2D dosing 10/11/24: Start Memantine 5mg daily 10/10/2024: Continue medications and treatment plan 10/09/2024: Decrease clozapine to 500mg HS Repeat clozapine level 10/08/2024: Continue medications and treatment plan 10/07/2024: -Continue current medications and tx plan 10/06/2024: -Continue current medications and tx plan 10/05/2024: -Increase clozapine to 600mg HS 10/04/2024: -Discontinue Depakote -Schedule melatonin 3mg HS 10/03/2024: -Continue current medications and tx plan. 10/02/2024: -Taper Depakote to 500mg HS 10/01/24 Continue medication at current doses. Continue disposition planning. 09/30/24: Increase Glycopyrrolate to 2mg bid for hypersalivation. Continue other medication at current doses. 09/29/24: Continue medication regimen. Scheduled for evaluation by the Office of Aging on . 09/28/24: Add Melatonin 3mg qhs. Continue other medication at current doses. 09/27/24: Increase Haldol to 5mg bid Continue other medication at current doses. 09/26/24 Continue medication at current doses. Will review indication for Paxil. Continue orthostatic vital sign monitoring bid (130s-160s/80s today) along with close monitoring given fall risk. 09/25/2024: -Start haldol 2.5mg BID 09/24/2024: -Decrease Paxil to 30mg daily 09/23/2024: -Increase clozapine to 500mg HS 09/22/2024: -Increase Depakote ER to 1000mg HS -Discontinue Ativan HS scheduled, adjust to prn in case contributing to falls -Orthostatic vitals BID -PT consult 09/21/2024: Clozapine level tomorrow AM 09/20/2024: Increase clozapine to 450mg HS. 09/19/2024: Increase Paxil to 30mg BID 09/18/2024: Continue medications and treatment plan 09/17/2024 Discontinue Haloperidol 09/16/2024: Clozapine to 400 mg at bedtime and discontinue a.m. dose 09/15/2024: Increase clozapine to 50 mg in the morning. Increase glycopyrrolate to 1.5 mg twice daily. 09/14/2024: Start Clozapine 25 mg in the morning 09/13/24: Continue medications and treatment plan 09/12/2024: Decrease clozapine to 350 mg at bedtime Start glycopyrrolate 1 mg twice daily Decrease haloperidol to 2.5 mg twice daily 09/11/2024: -Increase clozapine to 400mg HS 09/10/2024: -Increase clozapine to 350mg HS 09/09/2024: -Increase haldol back to 2.5mg TID -Increase ipratropium bromide 0.06% under the tongue to 3 sprays TID for sialorrhea -Increase clozapine to 300mg HS 09/08/2024: -Decrease haldol to 2.5mg HS -Discontinue topiramate 09/07/2024: -Decrease haldol to 2.5mg BID -Increase clozapine to 250mg HS 09/06/2024: -Increase Depakote ER to 500mg -Increase ipratropium bromide 0.06% under the tongue to 2 sprays TID -taper Topiramate to 25mg HS to reduce polypharmacy burden 09/05/2024: The patient was admitted to the [facility]) on q15 min checks (behavioral with suicide precautions) for safety. The patient will participate in group, recreational, and milieu therapies and will be offered additional individual and family sessions as clinically appropriate. -Continue psychiatric medications: * Clozapine 200mg HS (consider further dose titration) * Topiramate 25mg BID * Haldol 2.5mg TID * Ativan 1mg HS (goal to taper as sleep improves and stabilizes) -Adjust: * Paxil from 30mg BID to 30mg daily -Start: * Depakote ER 250mg HS -Clozapine level, fasting lipid panel, HBA1c tomorrow AM -Repeat EKG given his age and now on multiple medications that can impact QTc interval Mental Health & Subst Abuse Tx Psychiatrist Name of Psychiatrist: Haley Mazariegos (on maternity leave) will be seen by Dr. Juarez at [facility] Psychiatrist's Date Of Appointment With Psychiatric Provider: 09/27/24 Time of Appointment with Psychiatrist: 1:45PM Psychiatric Appointment Comment: [address] [place] [id number] [employer] C[employer] [facility] Phone Number for Glass Cutter Hand: [phone] Post Discharge Appointments Primary Care Physician Name Of Family Doctor/PCP: Dr. Deonte Martinez - [address] [place] [address] Primary Care Date of Future Appointment with PCP: 09/28/24 Time of Appointment with PCP: 8AM Provider Appointment Comment: Arrive @ 745AM, will be seen by ROSE Espinal. Check in via [employer]. Contact Information Discharge Discharge [address]: [address] [place] [id number] Discharge Plan Discharge Items Patient Disposition: Transfer Retirement Fac Reason For Visit: SCHIZOPHRENIA Discharge Diagnosis: Schizophrenia neurocognitive disorder, unspecified Condition on Discharge: Fair Health Concerns: Recent weight loss Activity: As commented below Activity Comment: ambulates with walker, activity as tolerated. Lifting: None Non-emergency contact: Primary Care Provider and Psychiatrist Call non-emergency contact if: you have any medication questions and your symptoms worsen Follow-up/Referrals: Deonte Martinez MD [Primary Care Provider] - Diet: Carb Consistent or DM2 Addtl Attending Provider Instructions: SPECIAL CARE INSTRUCTIONS: 1. Follow through with your scheduled aftercare appointments. If unable to keep an appointment, please call to reschedule. 2. Take your medication only as prescribed. Medication should not be changed or stopped without the approval of your doctor. In the event of worsening symptoms or concerns about side effects, contact your doctor immediately. 3. Utilize new healthy coping skills, anger management skills, and stress management skills learned during your hospitalization. Journal feelings and process them with a support person. Identify stressors or situations that may result in relapse, deterioration or inappropriate behaviors and develop a plan to deal with those issues. 4. If your coping skills are ineffective and you are in crisis, contact your outpatient providers for direction. If unable to reach your providers, please call the [facility] CRISIS LINE AT , go to the [facility] walk-in center at [address] [facility] [address], [address], [place], or go to the closest Emergency Room. 5. Avoid alcohol and un-prescribed drugs. 6. You have been provided with the Mental Health Advance Directives Pamphlet for your review. 7. Your condition is stable for discharge to outpatient level of care, but recovery is an ongoing process. Ifthoughts to harm yourself or others return, follow the safety plan developed during your stay. Planning for a safe return home includes securing weapons. Our treatment team recommends weaponsbe removed from the home until your outpatient provider reassesses your progress. In rare cases where the items themselvescannot be removed, guns and ammunitionshould be secured separatelyand keys stored by a reliable personoutside of the home. If you were admitted on an involuntary commitment, the police or other legal authorities may be involved in this process. AFTERCARE APPOINTMENTS: * Please call your insurance company prior to your scheduled appointment to confirm your aftercare providers are covered. Take your insurance information to your appointments. WHO TO CALL AND WHEN: Medical Emergencies: For questions or emergencies related to your hospital stay, please contact the Inpatient Behavioral Health Unit at [phone]. A supplemental manager is on-call 07/10 for the Behavioral Health Unit for em ergencies At any time you feel your situation is an emergency, you may also call 911 immediately. Pending Studies at Discharge: No Stand-Alone Forms: My [facility] [place] [email or web address] Skilled Items Patient informed of condition?: Yes Discharge Level of Care: Skilled Communicable Disease: No Discharge Prognosis: Stable Lines: None Urinary Catheter: No Medications and DC Order Prescriptions: New atorvastatin 40 mg Tablet 40 mg PO HS Qty: 30 0RF metformin 500 mg Tablet 1,000 mg PO BID17 Qty: 60 0RF paroxetine HCl 10 mg Tablet 30 mg PO HS 30 Days Qty: 90 0RF cyanocobalamin (vitamin B-12) [Vitamin B-12] 100 mcg Tablet 100 mcg PO QAM Qty: 30 0RF polyethylene glycol 3350 [Miralax] 17 gram Powder In Packet 17 g PO Q48H Qty: 30 0RF clozapine 100 mg Tablet 500 mg PO QPM 14 Days Qty: 70 0RF lisinopril 20 mg Tablet 20 mg PO DAILY Qty: 30 0RF melatonin 3 mg Tablet 3 mg PO HS Qty: 30 0RF levothyroxine [Synthroid] 25 mcg Tablet 25 mcg PO DAILYBB Qty: 30 0RF meloxicam 7.5 mg Tablet 15 mg PO DAILY Qty: 30 0RF docusate sodium 100 mg Capsule 200 mg PO BID Qty: 60 0RF cholecalciferol (vitamin D3) 25 mcg (1,000 unit) Capsule 50 mcg PO QAM Qty: 30 0RF memantine 10 mg Tablet 10 mg PO QAM Qty: 30 0RF multivitamin with folic acid [Daily-Izaiah (with folic acid)] 400 mcg Tablet 1 tab PO DAILY Qty: 30 0RF Discontinued atorvastatin 40 mg tablet 40 mg PO HS levothyroxine 25 mcg tablet 25 mcg PO QAM metformin 1,000 mg tablet 1,000 mg PO BID17 clozapine 200 mg tablet 200 mg PO HS cholecalciferol (vitamin D3) [Vitamin D3] 2,000 unit Capsule 2,000 unit PO QAM multivitamin [Daily-Izaiah] Tablet 1 tab PO DAILY lisinopril 20 mg tablet 20 mg PO DAILY cyanocobalamin (vitamin B-12) [Vitamin B-12] 100 mcg Tablet 100 mcg PO QAM Qty: 30 0RF polyethylene glycol 3350 [Miralax] 17 gram Powder In Packet 17 g PO DAILY Qty: 30 0RF sennosides [senna] 8.6 mg tablet 8.6 mg PO Q2D PRN (Reason: constipation) Qty: 14 0RF Rx Instructions: 8.6 mg orally as needed every other day for constipation paroxetine HCl 30 mg Tablet 30 mg PO BID topiramate 25 mg Tablet 25 mg PO BID Qty: 30 0RF meloxicam 15 mg tablet 15 mg PO DAILY Discharge Orders: Discharge Order (Routine); Ordered 10/29/24 Ordered By: Carin Johnson/Other Patient Handouts: Managing Type 2 Diabetes Admission Data Admit Date/Time: 09/04/24 14:12 Attending Provider: Jazz Orellana Admit Provider: Jazz Orellana Primary Care Provider: Deonte Martinez Other Providers: Gregory Humphrey Other Interventions: Discharge Summary Assessment (RN) Last Done: 10/29/24 07:54 PSY Interdisciplinary Discharge Planning Last Done: 10/29/24 07:53 C[place] [address] D/C day mgmt 30 min or < Patient Type Established Diagnoses Paranoid schizophrenia F20.0 Psychosis type: schizophrenia Schizophrenia type: paranoid schizophrenia Schizophrenia F20.9 Auditory hallucinations R44.0 Sialorrhea K11.7 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
== END 2024-10-29 11:22 | DRG 885 ==
LOC: SUATTDRO 14:12 → 3S 14:12